=== PATIENT | female | born 1950 | race Caucasian/White ===

== ENCOUNTER 2022-08-02 12:36 | Emergency (ER) | payer MEDICARE, OTHER, SELFPAY ==
--- NOTE | ~2022-08-02 | US_ITS ---
EXAMINATION: US VENOUS ULTRASOUND WITH DOPPLER LOWER EXTREMITY, BILATERAL CLINICAL INFORMATION: Bilateral lower extremity edema and pain COMPARISON: None TECHNIQUE: Ultrasound of the deep veins is performed from the hip to the calf with compression sonography and color and pulse Doppler assessment. Spectral analysis with color-flow imaging is performed. FINDINGS: RIGHT: There is normal venous compression and respiratory variation and augmented flow. The visualized common femoral vein, superficial femoral vein, profunda femoral vein, popliteal vein, and the trifurcation region shows no evidence of deep venous thrombosis. A Alberts's cyst is noted in the popliteal fossa measuring 3.1 x 1.5 x 2.3 cm. LEFT: There is normal venous compression and respiratory variation and augmented flow. The visualized common femoral vein, superficial femoral vein, profunda femoral vein, popliteal vein, and the trifurcation region shows no evidence of deep venous thrombosis. A complex Alberts's cyst is present measuring 4.7 x 3.0 x 2.7 cm If the patient's symptoms persist, followup ultrasound in 5 days 7 days might be of value to exclude proximal propagation from a non-visualized calf vein. US/US venous duplex LE BI IMPRESSION: No DVT demonstrated in either lower extremity. Bilateral Alberts's cysts are present.
--- NOTE | 2022-08-02 13:13 | ED_ITS ---
HPI - General Adult General Chief complaint: Extremity Problem <DENISE Hare - Last Filed: 08/02/22 13:21> Stated complaint: swollen L leg, trouble walking <DENISE Hare - Last Filed: 08/02/22 13:21> Time Seen by Provider: 08/02/22 16:52 <DENISE Hare - Last Filed: 08/02/22 13:21> Source: patient <Sharon Castro MD - Last Filed: 08/02/22 17:16> Mode of arrival: ambulatory <Shaorn Castro MD - Last Filed: 08/02/22 17:16> History of Present Illness HPI narrative: 72-year-old female with history of atrial fibrillation currently on anticoagulation presents for concerns regarding lower extremity edema and a recent right foot surgery on 07/19/2022 without symptoms of shortness of breath, palpitations, lightheadedness. She denies any fever, chills, redness to her lower extremity <Sharon Castro MD - Last Filed: 08/02/22 17:16> Related Data Allergies/adverse reactions: Allergies Allergy/AdvReac Type Severity Reaction Status Date / Time doxycycline Allergy Rash Verified 08/02/22 13:20 <DENISE Hare - Last Filed: 08/02/22 13:21> Review of Systems Review of Systems: Pertinent positives and negatives as stated in HPI <Sharon Castro MD - Last Filed: 08/02/22 17:16> PMFSH Past Medical History Source: nursing notes reviewed <Sharon Castro MD - Last Filed: 08/02/22 17:16> Physical Exam ED Vital Signs: Vital Signs - 24 hr 08/02/22 13:15 08/02/22 16:58 Temperature 97.4 F 97.6 F Pulse Rate 71 78 Respiratory Rate 16 14 Blood Pressure 151/70 H 151/76 H Pulse Oximetry 98 98 Oxygen Delivery Method Room Air Room Air BMI result Body Mass Index 30.5 <DENISE Hare - Last Filed: 08/02/22 13:21> Vital Signs - 24 hr 08/02/22 13:15 08/02/22 16:58 Temperature 97.4 F 97.6 F Pulse Rate 71 78 Respiratory Rate 16 14 Blood Pressure 151/70 H 151/76 H Pulse Oximetry 98 98 Oxygen Delivery Method Room Air Room Air BMI result Body Mass Index 30.5 VITAL SIGNS: Reviewed. GENERAL: Well developed, well nourished, in no acute distress. HEAD: Normocephalic/atraumatic EYES: PERRLA, EOMI LUNGS: Good inspiratory effort without wheeze/rhonchi/rales/tachypnea. SpO2<98> CARDIOVASCULAR: IRR rate and rhythm without noted murmurs, no JVD but bilateral nonpitting lower extremity edema ABDOMEN: Soft, non-tender, non-distended with bowel sounds. MUSCULOSKELETAL: No tenderness, deformities, or effusions noted on gross inspection. EXTREMITIES: No cyanosis, clubbing or edema, there is no erythema/induration to either lower extremity and no pitting edema.. SKIN: Inspection of the skin reveals no rashes NEUROLOGIC: Alert and oriented x 4. Strength and sensation to light touch were grossly intact x 4. <Sharon Castro MD - Last Filed: 08/02/22 17:16> Course Course Course Narrative: RME: 72 y/o F, PMHx of CHF, A. Fib on Eliquis, here for evaluation of BL LE swelling and pain x 3 days. LLE > RLE. Recent right foot surgery on 07/19/22, Missed 4 Eliquis doses pre-op. No CP/SOB Right calf tenderness with palpation and is significantly more swollen than the left. VSS in triage. US of BL LE ordered. Patient is stable to return to the waiting room until a room becomes available. <DENISE Hare - Last Filed: 08/02/22 13:21> Medical Decision Making Medical Decision Making MDM Narrative: This is a 72-year-old female who is currently on anticoagulation and there is no evidence on clinical exam to suggest cellulitis, thrombophlebitis, or DVT. I did review the venous duplex and my interpretation is in agreement with radiology's impression of the imaging study. There is no evidence of DVT or ruptured Alberts cyst although there are bilateral Alberts cysts noted. I did discuss with the patient that this is likely secondary to decreased movement due to surgery as well as discordance between the height of her shoe from the left to the right causing compensation and pain from that. She is otherwise stable for discharge to home. <Sharon Castro MD - Last Filed: 08/02/22 17:16> Differential Diagnosis Differential Diagnoses: The differential diagnosis associated with the presentation includes <Sharon Castro MD - Last Filed: 08/02/22 17:16> Please see the discussion above <Sharon Castro MD - Last Filed: 08/02/22 17:16> Radiology Impression Radiologist Impression: My interpretation is in agreement with radiology's impression of the imaging study. <Sharon Castro MD - Last Filed: 08/02/22 17:16> Chronic Conditions Patient?s care impacted by: Diabetes and Hypertension <Sharon Castro MD - Last Filed: 08/02/22 17:16> Discharge Plan Discharge Clinical Impression: Bilateral leg edema <DENISE Hare - Last Filed: 08/02/22 13:21> Patient Disposition: Home, Self-Care <DENISE Hare - Last Filed: 08/02/22 13:21> Instructions: Leg Edema (ED) <DENISE Hare - Last Filed: 08/02/22 13:21> Additional Instructions: 1. Resume all home medications as prescribed. 2. I recommend applying a compression stocking to the left lower extremity. 3. Follow-up with your primary care provider in the next 1-2 days for re- evaluation further outpatient management. Please do not hesitate to return to the ER for any worsening of symptoms. <DENISE Hare - Last Filed: 08/02/22 13:21> Referrals: Danyell Glass MD [Primary Care Provider] - <DENISE Hare - Last Filed: 08/02/22 13:21>
[2022-08-02 13:15] VITALS: BP 151/70; PULSE 71; RESP 16; TEMP 36.3; O2SAT 98; BMI 30.5
--- NOTE | 2022-08-02 16:06 | PC.NURSE ---
Attempted to call patient into ED. No answer in waiting room
[2022-08-02 16:58] VITALS: BP 151/76; PULSE 78; RESP 14; TEMP 36.4; O2SAT 98
== END 2022-08-02 17:44 | disposition home or self-care (01) ==
LOC: HO.ED 17:31
PROVIDERS: Emergency Provider Student in an Organized Health Care Education/Training Program; PCP Internal Medicine
DX: R60.0 Localized edema (principal); Z79.899 Other long term (current) drug therapy
CPT/HCPCS: 93970; 99283; 99284

== ENCOUNTER 2023-01-29 13:33 | Outpatient (REF) | payer MEDICARE, OTHER, SELFPAY ==
[2023-01-29 14:51] LABS: Estimated Average Glucose 120 mg/dL; Hemoglobin A1c % 5.8 % (<6.0)
[2023-01-29 15:15] LABS: Alanine Aminotransferase 8 U/L (0-31); Albumin Level 3.9 g/dL (3.5-5.0); Alkaline Phosphatase 105 U/L (39-117); Anion Gap 13 (12-20); Aspartate Amino Transferase 9 U/L (5-31); Bilirubin Total 0.4 mg/dL (0.0-1.0); Blood Urea Nitrogen 25 mg/dL (9-16); Calcium 9.9 mg/dL (8.4-10.2); Carbon Dioxide 29 mmol/L (22-29); Chloride 102 mmol/L (96-108); Estimated Glomerular Filt Rate 39; Glucose Random 131 mg/dL (60-115); Potassium 3.7 mmol/L (3.3-5.1); Sodium 140 mmol/L (135-145); Total Protein 7.5 g/dL (6.5-8.0)
== END 2023-01-29 13:34 | disposition home or self-care (01) ==
LOC: HO.LAB 13:33
PROVIDERS: PCP Internal Medicine; Visit Provider Physician Assistant
DX: E11.36 Type 2 diabetes mellitus with diabetic cataract (principal); Z79.4 Long term (current) use of insulin
CPT/HCPCS: 36415; 80053; 83036

== ENCOUNTER 2023-02-20 15:40 | Emergency (ER) | payer MEDICARE, OTHER, SELFPAY ==
--- NOTE | ~2023-02-20 | US_ITS ---
EXAMINATION: US PELVIS CLINICAL INFORMATION: Vaginal bleeding nonalcoholic was. Postmenopausal COMPARISON: 12/05/2019 CT scan TECHNIQUE: Ultrasound of the pelvis is performed using both transabdominal and transvaginal transducers along with Doppler. Transvaginal imaging is performed due to inadequate visualization transabdominally. FINDINGS: Uterus: The uterus is retroverted and measures 6.1 x 4.0 x 4.4 cm. The double wall endometrial thickness is 19 mm. The uterus is smooth in contour and has normal myometrial echogenicity. No visible fibroid. Adnexa: Ovaries are not able be visualized either transabdominally or endovaginally. US/US pelvic and transvaginal IMPRESSION: Heterogeneously thickened endometrial cavity measuring 1.9 cm maximally. This is out of proportion for patient's age. Clinical correlation and correlation with endometrial biopsy would be suggested.
--- NOTE | 2023-02-20 16:12 | ED_ITS ---
HPI - General Adult General Chief complaint: Vaginal Bleeding Stated complaint: bleeding? wants to check out Time Seen by Provider: 02/20/23 21:16 Source: patient Mode of arrival: ambulatory Limitations: no limitations History of Present Illness HPI narrative: 73 yo female hx of afib on eliquis, CKD, CHF, HTN - no fam hx of cancers but hx of breast cancer in family though patient never diagnosed who had menopause per her 30 years ago no prior post menopausal bleeding noted she had bleeding on her underwear today no clots x 1, has not gone through a pad today, wiped one more time and saw blood. She has no abdominal pain, no sig bleeding. She states no abnormal pap in past. This has never happened before. She feels okay now she is hungry and slightly dizzy from not eating. MD complaint: vaginal bleeding Onset (ago): hour(s) (3pm today ) Location: pelvis Radiation: non-radiation Severity: mild Relieving factors: none Exacerbating factors: none Associated symptoms: denies other symptoms Treatments prior to arrival: none Related Data Allergies Allergy/AdvReac Type Severity Reaction Status Date / Time doxycycline Allergy Rash Verified 08/02/22 13:20 Review of Systems 2 Review of Systems: Constitutional : No Fever, No Chills ENT/Mouth : No sore throat, No Rhinorrhea Eyes: No Eye Pain, No Redness Cardiovascular : No Chest Pain, No SOB Respiratory : No Cough, No Sputum, No Wheezing Gastrointestinal : no Nausea, No Vomiting, No Diarrhea, no abdominal pain, Genitourinary : positive irregular bleeding, No Dysuria, No Urinary Frequency, no pelvic pain Musculoskeletal : No Myalgias Skin : No rash Neuro : No Weakness, No Headache Psych : No Anxiety/Panic, No Depression Heme/Lymph: No bruising, No Lymphadenopathy Endocrine : No Polyuria, No Polydipsia All other systems reviewed and are negative [facility] Past Medical History Attestation statement: The following information was validated with the patient. Medical History CHF (congestive heart failure) CKD (chronic kidney disease) Afib Social History Social History Alcohol intake: never Smoked in Last 30 Days: No Use of substances other than those prescribed or required for medical reasons: No Advance Directives: No Advance Directives Information Provided: No Physical Exam ED Vital Signs: Vital Signs - 24 hr 02/20/23 16:14 02/20/23 20:35 02/20/23 20:35 Temperature 97.8 F Pulse Rate 63 62 67 Respiratory Rate 18 Blood Pressure 149/65 H 139/76 153/85 H Pulse Oximetry 96 Oxygen Delivery Method Room Air 02/20/23 20:36 02/20/23 20:38 02/20/23 21:42 Temperature 97.8 F 97.4 F Pulse Rate 83 63 61 Respiratory Rate 16 16 Blood Pressure 145/85 H 158/77 H 144/72 H Pulse Oximetry 98 96 Oxygen Delivery Method Room Air Room Air BMI result Body Mass Index 27.6 Appearance: Alert. Oriented X3. No acute distress. Eyes: Pupils equal, round and reactive to light. ENT: Pharynx normal. Neck: Normal inspection. Neck supple. CVS: Normal heart rate and rhythm. Pulses normal. Respiratory: No respiratory distress. Breath sounds normal. Abdomen: Soft and nontender. : dark blood 1 scopette noted from closed os no other bleeding or lesion seen Skin: Skin warm and dry. Normal skin color. Normal skin turgor. Extremities: No lower extremity edema. No calf ttp Neuro: Oriented X 3. No motor deficit. No sensory deficit. Course Course Course Narrative: RME: 73yo F w/PMHx HTN, DM, CHF, Stage 3 CKD, A.fib on Eliquis c/o bright red vaginal bleeding x few hours w/assoc lightheadedness/weakness. Denies N/V, abdominal pain. Currently on Abx for foot ulcer EKG, Labs, UA, Orthostatics ordered Full HPI, ROS and PE to be performed by primary ED provider. 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 At this time H/H stable VS stable will obtain US to evaluate uterus and monitor - likely hold eliquis for 2 days and refer to PCP and OBGYN pending US. She has no abdominal pain. Will trend H/H as well. Differential Diagnosis Differential Diagnoses: The differential diagnosis associated with the presentation includes DUB, ovarian mass, pelvic mass, uterine mass Admission/Observation Consideration of admission/observation: Escalation of care including admission/observation considered VS stable, H/H stable at 6 hr claudine Lab Data MDM Lab Attestation statement: I reviewed the patient's lab results. 02/20/23 21:50 02/20/23 16:36 Labs: Lab Results 02/20/23 02/20/23 02/20/23 Range/Units 16:36 20:44 21:50 WBC 6.1 6.4 (4.8-10.8) X10*3/uL RBC 4.51 4.46 (4.20-5.50) X10*6/uL Hgb 13.7 13.6 (12.0-16.0) g/dl Hct 41.9 41.2 (37.0-47.0) % MCV 92.9 92.4 (80.0-98.0) fL MCH 30.4 30.5 (27.0-33.0) pg MCHC 32.7 33.0 (31.0-35.0) g/dl RDW 15.9 15.7 (11.0-16.0) % Plt Count 274 266 (160-400) X10*3/uL MPV 9.4 9.4 (9.4-12.3) fL Immature Gran % (Auto) 0.3 (0.0-0.4) % Neut % (Auto) 73.0 (45-73) % Lymph % (Auto) 17.6 L (20-40) % [place] % (Auto) 6.0 (2-11) % Eos % (Auto) 2.1 (0-4) % Baso % (Auto) 1.0 (0-2) % Lymph # (Auto) 1.1 L (1.2-4.9) X10*3/uL [place] # (Auto) 0.4 (0.1-1.2) X10*3/uL Eos # (Auto) 0.1 (0.0-0.4) X10*3/uL Baso # (Auto) 0.1 (0.0-0.2) X10*3/uL Abs Immat Gran (auto) 0.02 (0.00-0.03) X10*3/uL Absolute Neuts (auto) 4.5 (2.0-8.3) x10*3/uL Absolute Nucleated RBC 0.000 0.000 (0.0-0.012) X10*3/uL Nucleated RBC % (auto) 0.0 0.0 (0.0-0.2) /100WBC PT 12.9 (11.1-13.3) SEC INR 1.1 (0.9-1.1) Sodium 140 (135-145) mmol/L Potassium 4.2 (3.3-5.1) mmol/L Chloride 104 (96-108) mmol/L Carbon Dioxide 25 (22-29) mmol/L Anion Gap 15 (12-20) BUN 25 H (9-16) mg/dL Creatinine 1.38 (0.5-1.4) mg/dL Estim Creat Clear Calc 36.3 Estimated GFR 37 POC Glucose 131 H (60-115) mg/dL Random Glucose 124 H (60-115) mg/dL Calcium 9.9 (8.4-10.2) mg/dL Magnesium 2.2 (1.6-2.6) mg/dL Total Bilirubin 0.4 (0.0-1.0) mg/dL Direct Bilirubin 0.1 (0.0-0.5) mg/dL AST 13 (5-31) U/L ALT 13 (0-31) U/L Alkaline Phosphatase 128 H (39-117) U/L Total Protein 7.9 (6.5-8.0) g/dL Albumin 4.2 (3.5-5.0) g/dL Lipase 46 (8-78) U/L Urine Color Yellow Urine Appearance Clear Urine pH 5.0 (5.0-9.0) Ur Specific [place] 1.010 (1.005-1.025) Urine Protein 30 (1+) H (Neg-Trace) mg/dL Urine Glucose (UA) >=1000 H (Negative) mg/dL Urine Ketones Negative (Negative) mg/dL Urine Blood Large (3+) H (Negative) Urine Nitrite Negative (Negative) Ur Leukocyte Esterase Moderate (2+) H (Negative) Urine RBC 3-5 H (0-2) /HPF Urine WBC 11-20 H (0-5) /HPF Ur Squamous Epith Cells 3-5 (0-2) /HPF Urine Bacteria Trace (None Seen) Hyaline Casts 0-2 (0-2) /LPF Independent Interpretation I performed an independent interpretation of an: EKG and Ultrasound Interpretation: Rate: 65 Rhythm: NSR [place]: left, LVH Normal P waves. Normal GEETA. RBBB ST T wave : inverted anterior leads qTC: normal prior studies: same as old 2019 The study has been interpreted contemporaneously by me. . Radiology Impression Discussion of test interpretation with radiology: I have reviewed the radiologist's reading. Discharge Plan Discharge Clinical Impression: Vaginal bleeding Patient Disposition: Home, Self-Care Instructions: Dysfunctional Uterine Bleeding (ED) Additional Instructions: return for bleeding dizziness pain and weakness HOLD eliquis for 2 days you need to call our OBGYN office in the AM you will need endometrial biopsy given bleeding and concerns of thickness of endometrial stripe this could be an issue such as cancer or early signs of cancer Referrals: Marino Becerra MD [Physician] - (call for appointment please call tomorrow)
[2023-02-20 16:14] VITALS: BP 149/65; PULSE 63; RESP 18; TEMP 36.6; O2SAT 96; BMI 27.6
--- NOTE | 2023-02-20 16:17 | ECG_ITS ---
Test Reason : V/BLEED Blood Pressure : / mmHG Vent. Rate : 065 BPM Atrial Rate : 065 BPM P-R Int : 142 ms QRS Dur : 144 ms QT Int : 444 ms P-R-T Axes : 054 -16 036 degrees QTc Int : 461 ms Normal sinus rhythm Right bundle branch block Minimal voltage criteria for LVH, may be normal variant ( R in aVL ) Abnormal ECG When compared with ECG of 05-DEC-2019 15:05, No significant change was found Referred By: Cayla Christiansen Electronically Signed By:CLINT SEARS
[2023-02-20 16:40] LABS: MANUAL DIFF FLAG NO
[2023-02-20 16:44] LABS: Appearance Urine Clear; Color Urine Yellow; Glucose Urine UA >=1000 mg/dL (Negative); Leukocyte Esterase Urine Moderate (2+) (Negative); Nitrite Urine Negative (Negative); UMIC TRIGGER UACC YES; Urine Blood Large (3+) (Negative); Urine Ketones Negative (Negative); Urine Protein 30 (1+) mg/dL (Neg-Trace)
[2023-02-20 16:45] LABS: Basophils Absolute Auto 0.1 X10*3/uL (0.0-0.2); Eosinophils Absolute Auto 0.1 X10*3/uL (0.0-0.4); Eosinophils Percent Auto 2.1 % (0-4); Hematocrit 41.9 % (37.0-47.0); Hemoglobin 13.7 g/dl (12.0-16.0); Imm Gran Abs Auto 0.02 X10*3/uL (0.00-0.03); Imm Gran Pct Auto 0.3 % (0.0-0.4); Lymphocytes Absolute Auto 1.1 X10*3/uL (1.2-4.9); Lymphocytes Percent Auto 17.6 % (20-40); Mean Corpuscular HGB Conc 32.7 g/dl (31.0-35.0); Mean Corpuscular Hemoglobin 30.4 pg (27.0-33.0); Mean Corpuscular Volume 92.9 fL (80.0-98.0); Mean Platelet Volume 9.4 fL (9.4-12.3); Monocytes Absolute Auto 0.4 X10*3/uL (0.1-1.2); Neutrophils Absolute Auto 4.5 x10*3/uL (2.0-8.3); Platelet Count 274 X10*3/uL (160-400); Red Blood Count 4.51 X10*6/uL (4.20-5.50); Red Cell Distribution Width 15.9 % (11.0-16.0); White Blood Count 6.1 X10*3/uL (4.8-10.8)
[2023-02-20 16:55] LABS: INTERNATIONAL NORM RATIO 1.1 (0.9-1.1); Prothrombin Time 12.9 SEC (11.1-13.3)
[2023-02-20 16:58] LABS: Alanine Aminotransferase 13 U/L (0-31); Albumin Level 4.2 g/dL (3.5-5.0); Alkaline Phosphatase 128 U/L (39-117); Anion Gap 15 (12-20); Aspartate Amino Transferase 13 U/L (5-31); Bilirubin Direct 0.1 mg/dL (0.0-0.5); Bilirubin Total 0.4 mg/dL (0.0-1.0); Blood Urea Nitrogen 25 mg/dL (9-16); Calcium 9.9 mg/dL (8.4-10.2); Carbon Dioxide 25 mmol/L (22-29); Chloride 104 mmol/L (96-108); Creatinine Clr Calc Pharmacy 36.3; Estimated Glomerular Filt Rate 37; Glucose Random 124 mg/dL (60-115); Lipase 46 U/L (8-78); Magnesium 2.2 mg/dL (1.6-2.6); Potassium 4.2 mmol/L (3.3-5.1); Sodium 140 mmol/L (135-145); Total Protein 7.9 g/dL (6.5-8.0)
[2023-02-20 17:01] LABS: Bacteria Urine Trace (None Seen); Hyaline Casts Urine 0-2 /LPF (0-2); UACC Culture Trigger YES
[2023-02-20 20:35] VITALS: BP 139/76; BP 153/85; PULSE 62; PULSE 67
[2023-02-20 20:36] VITALS: BP 145/85; PULSE 83
[2023-02-20 20:38] VITALS: BP 158/77; PULSE 63; RESP 16; TEMP 36.6; O2SAT 98
--- NOTE | 2023-02-20 20:45 | MHC.EDTECH ---
THIS PCT JUST ASSUMED CARE OF PT ,ORTHOSTATICS VITALS SIGN TAKEN ,AND BLOOD SUGAR CHECK ,PT IS COMFORTABLE AND RESTING IN BED ,WARM BLANKET GIVEN .
[2023-02-20 20:50] LABS: Glucose, Whole Blood 131 mg/dL (60-115)
[2023-02-20 21:42] VITALS: BP 144/72; PULSE 61; RESP 16; TEMP 36.3; O2SAT 96
--- NOTE | 2023-02-20 21:50 | MHC.EDTECH ---
PATIENT 2200 VITALS SIGN TAKEN AND CBC DRAWN AND SENT TO LAB .
[2023-02-20 21:56] LABS: Hematocrit 41.2 % (37.0-47.0); Hemoglobin 13.6 g/dl (12.0-16.0); Mean Corpuscular Hemoglobin 30.5 pg (27.0-33.0); Mean Corpuscular Volume 92.4 fL (80.0-98.0); Mean Platelet Volume 9.4 fL (9.4-12.3); Platelet Count 266 X10*3/uL (160-400); Red Blood Count 4.46 X10*6/uL (4.20-5.50); Red Cell Distribution Width 15.7 % (11.0-16.0); White Blood Count 6.4 X10*3/uL (4.8-10.8)
== END 2023-02-20 23:15 | disposition home or self-care (01) ==
PROVIDERS: Physician Assistant; Emergency Provider Emergency Medicine; PCP Internal Medicine
DX: N93.9 Abnormal uterine and vaginal bleeding, unspecified (principal); R53.1 Weakness; I13.0 Hypertensive heart and chronic kidney disease with heart failure and stage 1 through stage 4 chronic kidney disease, or unspecified chronic kidney disease; N18.9 Chronic kidney disease, unspecified; I50.9 Heart failure, unspecified; I48.91 Unspecified atrial fibrillation; Z79.01 Long term (current) use of anticoagulants
CPT/HCPCS: 36415; 76830; 76856; 80048; 80076; 81001; 82947; 83690; 83735; 85025; 85027; 85610; 87086; 93005; 99284; 99285

== ENCOUNTER 2023-02-23 12:17 | Outpatient (REF) | payer MEDICARE, OTHER, SELFPAY ==
[2023-02-23 12:57] LABS: MANUAL DIFF FLAG NO
[2023-02-23 13:06] LABS: Basophils Absolute Auto 0.1 X10*3/uL (0.0-0.2); Basophils Percent Auto 0.9 % (0-2); Eosinophils Absolute Auto 0.2 X10*3/uL (0.0-0.4); Eosinophils Percent Auto 2.6 % (0-4); Hematocrit 42.3 % (37.0-47.0); Hemoglobin 13.8 g/dl (12.0-16.0); Imm Gran Abs Auto 0.02 X10*3/uL (0.00-0.03); Imm Gran Pct Auto 0.3 % (0.0-0.4); Lymphocytes Percent Auto 15.1 % (20-40); Mean Corpuscular HGB Conc 32.6 g/dl (31.0-35.0); Mean Corpuscular Hemoglobin 30.9 pg (27.0-33.0); Mean Corpuscular Volume 94.8 fL (80.0-98.0); Mean Platelet Volume 9.4 fL (9.4-12.3); Monocytes Absolute Auto 0.5 X10*3/uL (0.1-1.2); Monocytes Percent Auto 7.3 % (2-11); Neutrophils Absolute Auto 5.1 x10*3/uL (2.0-8.3); Neutrophils Percent Auto 73.8 % (45-73); Platelet Count 251 X10*3/uL (160-400); Red Blood Count 4.46 X10*6/uL (4.20-5.50); White Blood Count 6.9 X10*3/uL (4.8-10.8)
[2023-02-23 15:33] LABS: Anion Gap 15 (12-20); Blood Urea Nitrogen 28 mg/dL (9-16); Calcium 9.8 mg/dL (8.4-10.2); Carbon Dioxide 27 mmol/L (22-29); Chloride 103 mmol/L (96-108); Estimated Glomerular Filt Rate 41; Magnesium 2.3 mg/dL (1.6-2.6); Phosphorus 3.4 mg/dL (2.7-4.5); Sodium 141 mmol/L (135-145)
[2023-02-23 16:10] LABS: Creatinine Urine 21.18 mg/dL; Microalbum/Creatinine Ratio Ur 590.1 ug/mg cr (<30); Total Protein Urine Random 19 mg/dL (<12)
[2023-02-26 13:59] LABS: Calcium (PTHI) 9.7 mg/dL (8.6-10.4); PTHI 61 pg/mL (16-77)
== END 2023-02-23 12:18 | disposition home or self-care (01) ==
LOC: HO.LAB 12:17
PROVIDERS: PCP Internal Medicine; Visit Provider Internal Medicine Nephrology
DX: E11.22 Type 2 diabetes mellitus with diabetic chronic kidney disease (principal); N18.32 Chronic kidney disease, stage 3b; I77.6 Arteritis, unspecified; R82.90 Unspecified abnormal findings in urine
CPT/HCPCS: 36415; 80051; 82043; 82306; 82310; 82565; 82570; 83735; 83970; 84100; 84156; 84520; 85025; 87086

== ENCOUNTER 2023-09-25 11:20 | Inpatient (IN) | payer MEDICARE, OTHER, SELFPAY ==
--- NOTE | ~2023-09-25 | FL_ITS ---
EXAMINATION: XR FLUOROSCOPY WITH IMAGES CLINICAL INFORMATION: ERCP COMPARISON: CT abdomen pelvis on 09/25/2023 TECHNIQUE: Fluoroscopy Supervised By: Dr. Joe Cruz. Fluoroscopy Time: 5.1 minutes. Cumulative Dose: 58.6 mGy. DAP: 15.9 Gycm2. Images: 8. FINDINGS: Fluoroscopy performed during ERCP, CBD injection, and balloon sweep of the CBD. A common bile duct stent was placed. There is moderate intrahepatic biliary ductal dilatation. FL/FL guidance in OR IMPRESSION: Fluoroscopy performed during endoscopy. Please see operative report for additional information.
--- NOTE | ~2023-09-25 | US_ITS ---
EXAMINATION: US ABDOMEN LIMITED CLINICAL INFORMATION: Jaundice. COMPARISON: CT abdomen and pelvis dated 12/05/2019. TECHNIQUE: Real-time imaging of the right upper quadrant abdominal viscera. FINDINGS: PANCREAS: Within the pancreatic head, a 4.3 x 2.3 x 2.6 cm hypoechoic, circumscribed mass is seen. There is pancreatic ductal dilatation to 7 mm. LIVER: The liver is normal in size. The liver contour is normal. There are benign, calcified granulomas. Parenchymal echogenicity is normal. No focal hepatic lesion. There is intrahepatic biliary duct dilatation. GALLBLADDER: Surgically absent. COMMON BILE DUCT: Markedly increased in caliber, measuring 2.7 cm in diameter. RIGHT KIDNEY: There are benign, simple cysts, the largest at the lower pole measuring 2.9 cm in maximal diameter. These require no imaging follow-up. There is mild hydronephrosis. No renal calculi or focal parenchymal solid lesions. The kidney measures 10.0 cm in maximum dimension. FREE FLUID: None. US/US abdomen limited IMPRESSION: 1. A 4.3 cm pancreatic head mass is seen. There is secondary dilatation of the pancreatic duct, the common bile duct and the intrahepatic ductal system. Recommend further evaluation with CT or MRI (pancreatic mass protocol). 2. The gallbladder is surgically absent. 3. There is mild right hydronephrosis.
--- NOTE | ~2023-09-25 | CT_ITS ---
EXAMINATION: CT ABDOMEN AND PELVIS WITH CONTRAST CLINICAL INFORMATION: Obstructive jaundice COMPARISON: Portions of a previous CT 12/05/19. TECHNIQUE: Multidetector volumetric images were obtained from the superior aspect of the liver through the pubic symphysis following administration 85 mL of Omnipaque 350 intravenous contrast. Sagittal and coronal reformatted images were obtained on the technologist's workstation. Oral contrast: No This CT examination was performed using dose optimization techniques as appropriate, variously including the following: *Automated exposure control *Adjustment of mA and/or kV according to patient size (this includes techniques or standardized protocols for targeted exams where dose is matched to indication/reason for exam; i.e. extremities or head) *Use of iterative reconstruction technique DLP: 447 mGy-cm FINDINGS: LUNG BASES: No suspicious abnormality in the visualized lower chest LIVER, GALLBLADDER, AND BILIARY TREE: There is marked intra and extrahepatic biliary dilation. There is a circumscribed 0.8 cm round mass in the medial upper aspect of hepatic segment 7 (series 2, image 9). I cannot confirm stability when compared to the previous study which was performed without contrast. The liver contour appears smooth. Massive distention of the common bile duct with abrupt narrowing at the level of the pancreatic head. There is some hyperenhancement of the most distal common duct. PANCREAS: There is moderate to marked diffuse dilation of the pancreatic duct. The pancreatic duct is dilated tail body and neck. There is a fairly abrupt changing caliber of the pancreatic duct in the pancreatic head. This corresponds to the level of abrupt narrowing of the common bile duct. There is fullness in this area which measures approximately 2.8 cm. No peripancreatic collection. SPLEEN: Within normal limits ADRENAL GLANDS: No adrenal mass demonstrated. KIDNEYS AND URETERS: There are multiple varying sized round low attenuating renal masses consistent with cysts. No suspicious renal mass. There is visualization of the collecting system on each side. No definite ureteral calculus. BLADDER: The bladder is distended. The bladder outlet is prominent. There may be an element of bladder floor relaxation. GASTROINTESTINAL TRACT: No localized colonic wall thickening. The appendix is normal. There may be a tiny hiatal hernia. The stomach is not well distended. The duodenum is somewhat displaced and possibly narrowed. ABDOMINAL WALL: Fat protrudes into the umbilicus. Small bowel loops are closely related to the abdominal wall fascia. LYMPH NODES: No measurable lymphadenopathy. No convincing omental or mesenteric mass. No significant intraperitoneal fluid. VASCULAR: There is no abdominal aortic aneurysm. The portal vein enhances. The tissue planes around the celiac axis and SMA are maintained. The pancreas abuts the right side of the splenoportal confluence. No convincing change in caliber or convincing evidence of invasion. PELVIC VISCERA: No suspicious abnormality the uterus or adnexa. OSSEOUS STRUCTURES: No suspicious focal lesion. There is extensive degenerative change in the visualized spine CT/CT abdomen pelvis w IV con IMPRESSION: Markedly abnormal exam. There is a mass in the region of the pancreatic head which causes the double duct sign with obstruction of the pancreatic and bile duct. Possibilities should include adenocarcinoma of the pancreas. Cholangiocarcinoma of the distal common bile duct is possible. Primary small bowel malignancy felt much less likely. Tissue diagnosis recommended. Fleischner guidelines were followed.
[2023-09-25 11:29] VITALS: BP 163/83; PULSE 75; RESP 18; TEMP 36.8; O2SAT 98; BMI 26.0
--- NOTE | 2023-09-25 11:29 | ED.GENADULT ---
HPI - General Adult General Chief complaint: Recheck/Abnormal Lab/Rx Stated complaint: dark urine Time Seen by Provider: 09/25/23 14:56 Source: patient Mode of arrival: ambulatory Limitations: no limitations History of Present Illness HPI narrative: patient noticed that over the weekend she was becoming yellow, denies abdominal pain or swelling. No prior history of pancreatitis or hepatitis. Onset (ago): day(s) Related Data Allergies Allergy/AdvReac Type Severity Reaction Status Date / Time doxycycline Allergy Rash Verified 09/25/23 11:32 Review of Systems Review of Systems: Yes all other systems are reviewed and are negative Neurologic: Denies Sensory deficit (Neuro) [facility] Past Medical History Medical History CHF (congestive heart failure) CKD (chronic kidney disease) Afib Social History Social History Alcohol intake: never Advance Directives: No Advance Directives Information Provided: No Physical Exam ED Vital Signs: Vital Signs - 24 hr 09/25/23 11:29 Temperature 98.3 F Pulse Rate 75 Respiratory Rate 18 Blood Pressure 163/83 H Pulse Oximetry 98 Oxygen Delivery Method Room Air BMI result Body Mass Index 26.0 Const Other: ill appearing, jaundiced Nutritional Appearance: average body habitus Orientation/consciousness: oriented to person and patient oriented x3 Limitations: no limitations HENMT Head: Yes normal to inspection Ears: external ears normal General nose exam: Normal external nose present Mouth: Normal oral and palatal mucosa present and oropharynx normal Throat: Yes posterior oropharynx normal Eyes Other: icteric Neck Neck: Yes normal visual inspection Chest Chest palpation & inspection: normal inspection of the chest Resp Auscultation: clear to auscultation bilaterally Cardio Jugular venous distension: no JVD Rate: regular rate Rhythm: regular rhythm Heart sounds: S1 normal heart sound present and S2 normal heart sound present GI Inspection: Yes normal to inspection Palpation (GI): Soft to palpation, nontender and No hepatosplenomegaly present Auscultation: normal bowel sounds General: Yes no CVA tenderness Back/Spine/Pelvis Back: no CVA tenderness Skin Other: jaundiced General skin exam: no rashes or lesions noted Neuro General: oriented to person and patient oriented x3 Cranial nerves: Yes CN's II-XII intact bilaterally Motor exam (neuro): 10/13 motor strength present throughout Sensory Exam: No Sensory deficit (Neuro) Extrem General: Yes normal to inspection Psych Appearance: grossly normal Course Course Course Narrative: 73-year-old female presents for evaluation of yellow skin and dark urine. She denies any known history of liver issues. She does have chronic kidney disease. She was recently prescribed Levaquin for a right foot infection. Plan for labs, UA, INR, Tylenol level. The patient denies Tylenol use or abuse. Will defer any potential imaging to primary provider Reevaluation(s) Reevaluation #1: Discussed with Dr. Cruz we can admit the patient to [place] Time: 15:28 Medical Decision Making Differential Diagnosis Differential Diagnoses: The differential diagnosis associated with the presentation includes (hepatitis, pancreatitis, pancreatic mass, liver mass, ascending cholangitis) Admission/Observation Consideration of admission/observation: Escalation of care including admission/observation considered (upon arrival patient considered for admission) Consult Healthcare Provider Management of the patient was discussed with: Hospitalist and Manufacturing Finance Manager (Dr. Nanyc BANDA) Lab Data 09/25/23 11:45 09/25/23 11:45 Labs: Lab Results 09/25/23 Range/Units 11:45 WBC 8.5 (4.8-10.8) X10*3/uL RBC 4.42 (4.20-5.50) X10*6/uL Hgb 13.0 (12.0-16.0) g/dl Hct 39.0 (37.0-47.0) % MCV 88.2 (80.0-98.0) fL MCH 29.4 (27.0-33.0) pg MCHC 33.3 (31.0-35.0) g/dl RDW 15.7 (11.0-16.0) % Plt Count 325 D (160-400) X10*3/uL MPV 10.3 (9.4-12.3) fL Immature Gran % (Auto) 0.7 H (0.0-0.4) % Neut % (Auto) 82.9 H (45-73) % Lymph % (Auto) 7.8 L (20-40) % [place] % (Auto) 5.6 (2-11) % Eos % (Auto) 2.1 (0-4) % Baso % (Auto) 0.9 (0-2) % Lymph # (Auto) 0.7 L (1.2-4.9) X10*3/uL [place] # (Auto) 0.5 (0.1-1.2) X10*3/uL Eos # (Auto) 0.2 (0.0-0.4) X10*3/uL Baso # (Auto) 0.1 (0.0-0.2) X10*3/uL Abs Immat Gran (auto) 0.06 H (0.00-0.03) X10*3/uL Absolute Neuts (auto) 7.1 (2.0-8.3) x10*3/uL Absolute Nucleated RBC 0.000 (0.0-0.012) X10*3/uL Nucleated RBC % (auto) 0.0 (0.0-0.2) /100WBC Sodium 133 L (135-145) mmol/L Potassium 3.4 (3.3-5.1) mmol/L Chloride 98 (96-108) mmol/L Carbon Dioxide 23 (22-29) mmol/L Anion Gap 15 (12-20) BUN 26 H (9-16) mg/dL Creatinine 1.44 H (0.5-1.4) mg/dL Estim Creat Clear Calc 32.6 Estimated GFR 36 Random Glucose 321 H (60-115) mg/dL Calcium 9.5 (8.4-10.2) mg/dL Total Bilirubin 15.0 H (0.0-1.0) mg/dL AST 332 H (5-31) U/L ALT 432 H (0-31) U/L Alkaline Phosphatase 1440 H (39-117) U/L Total Protein 7.6 (6.5-8.0) g/dL Albumin 3.5 (3.5-5.0) g/dL Lipase 1126 H (8-78) U/L Acetaminophen < 3 (<30) mcg/mL Independent Interpretation I performed an independent interpretation of an: Ultrasound (dilated CBD and mass at the head of the pancreas) Radiology Impression Discussion of test interpretation with radiology: I have reviewed the radiologist's reading. (and agree) Tests considered The following testing was considered but not selected: CT scan of abdomen considered but ultrasound was the better choice to exam the biliary ducts Chronic Conditions Patient?s care impacted by: Diabetes and Hypertension Discharge Plan Discharge Clinical Impression: Biliary obstruction, Pancreatic mass Patient Disposition: Admitted As Inpatient Print Language: Lithuanian
[2023-09-25 11:54] LABS: MANUAL DIFF FLAG NO
[2023-09-25 12:10] LABS: Basophils Absolute Auto 0.1 X10*3/uL (0.0-0.2); Basophils Percent Auto 0.9 % (0-2); Eosinophils Absolute Auto 0.2 X10*3/uL (0.0-0.4); Eosinophils Percent Auto 2.1 % (0-4); Imm Gran Abs Auto 0.06 X10*3/uL (0.00-0.03); Imm Gran Pct Auto 0.7 % (0.0-0.4); Lymphocytes Absolute Auto 0.7 X10*3/uL (1.2-4.9); Lymphocytes Percent Auto 7.8 % (20-40); Mean Corpuscular HGB Conc 33.3 g/dl (31.0-35.0); Mean Corpuscular Hemoglobin 29.4 pg (27.0-33.0); Mean Corpuscular Volume 88.2 fL (80.0-98.0); Mean Platelet Volume 10.3 fL (9.4-12.3); Monocytes Absolute Auto 0.5 X10*3/uL (0.1-1.2); Monocytes Percent Auto 5.6 % (2-11); Neutrophils Absolute Auto 7.1 x10*3/uL (2.0-8.3); Neutrophils Percent Auto 82.9 % (45-73); Platelet Count 325 X10*3/uL (160-400); Red Blood Count 4.42 X10*6/uL (4.20-5.50); Red Cell Distribution Width 15.7 % (11.0-16.0); White Blood Count 8.5 X10*3/uL (4.8-10.8)
[2023-09-25 12:48] LABS: Alanine Aminotransferase 432 U/L (0-31); Albumin Level 3.5 g/dL (3.5-5.0); Alkaline Phosphatase 1440 U/L (39-117); Anion Gap 15 (12-20); Aspartate Amino Transferase 332 U/L (5-31); Blood Urea Nitrogen 26 mg/dL (9-16); Calcium 9.5 mg/dL (8.4-10.2); Carbon Dioxide 23 mmol/L (22-29); Chloride 98 mmol/L (96-108); Creatinine Clr Calc Pharmacy 32.6; Estimated Glomerular Filt Rate 36; Glucose Random 321 mg/dL (60-115); Potassium 3.4 mmol/L (3.3-5.1); Sodium 133 mmol/L (135-145); Total Protein 7.6 g/dL (6.5-8.0)
[2023-09-25 13:21] LABS: Lipase 1126 U/L (8-78)
[2023-09-25 13:54] LABS: Acetaminophen LAB < 3 mcg/mL (<30)
[2023-09-25 15:33] VITALS: BP 149/78; PULSE 71; RESP 18; TEMP 36.4; O2SAT 97
--- NOTE | 2023-09-25 15:38 | PC.NURSE ---
Pt presents from home, reports over the weekend she noticed her skin was yellowing and is itchy, along with dark urine. Pt reports no pain, CP, fevers, cough, N/V/D. Pt denies any recent falls or illnesses. Pt is alert and oriented, breathing even and unlabored, skin obviously jaundice and dry. Pt in no outward distress. VSS.
[2023-09-25 15:56] LABS: INTERNATIONAL NORM RATIO 1.2 (0.9-1.1); Prothrombin Time 14.1 SEC (11.1-13.3)
--- NOTE | 2023-09-25 15:56 | P.HPHOSP_ITS ---
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 Patient reports about 1 month of decreased appetite, 5 lb weight loss, weakness. Initially attributed to right diabetic foot wound for which he was treated with 10 days of levofloxacin. However symptoms persisted with worsening yellowing of skin, came to ED by request of her son. In ED found to have elevated bilirubin and transaminases, abdominal ultrasound suspicious for pancreatic mass. Patient denies any fever abdominal pain. Review of Systems 2 Review of Systems: Yes all other systems are reviewed and are negative [facility] Medical History CHF (congestive heart failure) CKD (chronic kidney disease) Afib Social History Alcohol intake: never Smoked in Last 30 Days: No Use of substances other than those prescribed or required for medical reasons: No Advance Directives: No Advance Directives Information Provided: No Meds Allergies Allergy/AdvReac Type Severity Reaction Status Date / Time doxycycline Allergy Rash Verified 09/25/23 11:32 Active Medications: Current Medications Sodium Chloride (0.9 % Sodium Chloride Flush 3 Ml Syringe) 3 ml [facility] Medications ?Medication ?Instructions ?Recorded ?Confirmed ?Last Taken ?Type apixaban 5 mg tablet (Eliquis) 5 mg PO BID 09/25/23 09/25/23 09/25/23 History atorvastatin 10 mg tablet 10 mg PO BEDTIME 09/25/23 09/25/23 09/24/23 History diltiazem HCl 240 mg 240 mg PO DAILY 09/25/23 09/25/23 09/25/23 History capsule,extended release 24 hr empagliflozin 25 mg-metformin ER 1 tab PO DAILY 09/25/23 09/25/23 09/25/23 History 1,000 mg tablet,extended release 24hr (Synjardy XR) furosemide 40 mg tablet 40 mg PO BID@0900,1200 09/25/23 09/25/23 09/25/23 History metoprolol tartrate 25 mg tablet 37.5 mg PO BID 09/25/23 09/25/23 09/25/23 History Physical Exam 2 Vital Signs and Narrative: Vital Signs: Last Vital Signs Temp 97.5 F 09/25/23 15:33 Pulse 71 09/25/23 15:33 Resp 18 09/25/23 15:33 BP 149/78 H 09/25/23 15:33 Pulse Ox 97 09/25/23 15:33 O2 Del Method Room Air 09/25/23 15:33 BMI result Body Mass Index 26.0 General: AO X 3, no acute distress, jaundice Resp: CTA bilateral, no accessory muscles used CVS: S1,S2,RRR, 2+ bialteral edema GI: soft, non tender, non distended Neuro: motor grossly intact, alert Psych: appropriate affect, appropriate insight Results Labs 09/25/23 11:45 09/25/23 11:45 Labs: Laboratory Results - last 24 hr 09/25/23 09/25/23 11:45 15:44 MCV 88.2 MCH 29.4 MCHC 33.3 RDW 15.7 Plt Count 325 D MPV 10.3 Immature Gran % (Auto) 0.7 H Neut % (Auto) 82.9 H Lymph % (Auto) 7.8 L [place] % (Auto) 5.6 Eos % (Auto) 2.1 Baso % (Auto) 0.9 Lymph # (Auto) 0.7 L [place] # (Auto) 0.5 Eos # (Auto) 0.2 Baso # (Auto) 0.1 Abs Immat Gran (auto) 0.06 H Absolute Neuts (auto) 7.1 Absolute Nucleated RBC 0.000 Nucleated RBC % (auto) 0.0 PT 14.1 H INR 1.2 H Anion Gap 15 Estim Creat Clear Calc 32.6 Estimated GFR 36 Random Glucose 321 H Calcium 9.5 Total Bilirubin 15.0 H AST 332 H ALT 432 H Alkaline Phosphatase 1440 H Total Protein 7.6 Albumin 3.5 Lipase 1126 H Acetaminophen < 3 Imaging Radiologist's Impressions: Impressions Abdomen Ultrasound 09/25/23 14:58 IMPRESSION: 1. A 4.3 cm pancreatic head mass is seen. There is secondary dilatation of the pancreatic duct, the common bile duct and the intrahepatic ductal system. Recommend further evaluation with CT or MRI (pancreatic mass protocol). 2. The gallbladder is surgically absent. 3. There is mild right hydronephrosis. 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, diabetes, peripheral vascular disease presented with painless jaundice Obstructive jaundice Likely due to pancreatic mass Check CT abdomen NPO after midnight for ERCP with stent placement Outpatient Oncology referral Paroxysmal atrial fibrillation Hold Eliquis for procedure Continue diltiazem, metoprolol Chronic right-sided heart failure Continue Lasix CKD 2 Stable Diabetes Hold orals, insulin sliding scale DVT prophylaxis-mechanical for now due to planned procedure Full code patient with obstructive jaundice, requiring intervention, expected to need atleast 2 midnights inpatient Quality Stroke Does the patient have a stroke diagnosis?: No VTE Prior VTE?: No VTE Risk Level:: Medical - moderate - high VTE Device Contraindication: Treatment Not Indicated VTE Drug Contraindication: N/A - Med Ordered
--- NOTE | 2023-09-25 16:13 | PHA.MEDREC ---
Pharmacy Consult ? Medication Reconciliation Pharmacy has completed the medication reconciliation. Patient had updated list of medications that match claim history. Dexter ArthurD
[2023-09-25] MEDS: iohexoL 350 MG/ML 100 ML INFUS..BTL IV (16:17)
[2023-09-25 18:18] LABS: Glucose, Whole Blood 164 mg/dL (60-115)
[2023-09-25 18:22] VITALS: BP 145/75; PULSE 72; RESP 18; TEMP 36.5; O2SAT 96
[2023-09-25] MEDS: 0.9 % Sodium Chloride Flush 3 ML SYRINGE IVFLUSH (18:23)
[2023-09-25] MEDS: Insulin Lispro 100 UNIT/ML 3 ML VIAL SUBCUT ×2 (18:41→20:31)
[2023-09-25 18:53] LABS: Appearance Urine Clear; Glucose Urine UA >=1000 mg/dL (Negative); Leukocyte Esterase Urine Negative (Negative); Nitrite Urine Negative (Negative); PH 5.5 (5.0-9.0); Specific Gravity - Urine >= 1.030 (1.005-1.025); UMIC TRIGGER UACC YES; Urine Blood Negative (Negative); Urine Ketones Trace mg/dL (Negative); Urine Protein 30 (1+) mg/dL (Neg-Trace)
[2023-09-25 18:54] LABS: Color Urine Yellow
[2023-09-25 18:56] LABS: Bacteria Urine None Seen (None Seen); Hyaline Casts Urine 0-2 /LPF (0-2); RBC Urine 0-2 /HPF (0-2); Squamous Epithelial Cell Urine 0-2 /HPF (0-2); WBC Urine 0-5 /HPF (0-5)
[2023-09-25 20:24] VITALS: BP 127/60; PULSE 77; RESP 18; TEMP 36.5; O2SAT 97
[2023-09-25 20:26] LABS: Glucose, Whole Blood 304 mg/dL (60-115)
[2023-09-25] MEDS: Metoprolol Tartrate 12.5 MG HALFTAB 37.5 MG PO (20:31)
[2023-09-25] MEDS: Atorvastatin Calcium 10 MG TABLET PO (20:31)
[2023-09-26 05:47] VITALS: BP 116/50; PULSE 70; RESP 20; TEMP 36.4; O2SAT 95
[2023-09-26 05:50] VITALS: BP 109/52; PULSE 60; RESP 19; TEMP 36.8; O2SAT 97
[2023-09-26 06:47] LABS: Hematocrit 35.1 % (37.0-47.0); Hemoglobin 11.7 g/dl (12.0-16.0); Mean Corpuscular HGB Conc 33.3 g/dl (31.0-35.0); Mean Corpuscular Hemoglobin 29.4 pg (27.0-33.0); Mean Corpuscular Volume 88.2 fL (80.0-98.0); Mean Platelet Volume 10.5 fL (9.4-12.3); Platelet Count 267 X10*3/uL (160-400); Red Blood Count 3.98 X10*6/uL (4.20-5.50); Red Cell Distribution Width 15.9 % (11.0-16.0)
[2023-09-26 06:55] LABS: Alanine Aminotransferase 365 U/L (0-31); Albumin Level 2.9 g/dL (3.5-5.0); Alkaline Phosphatase 1401 U/L (39-117); Anion Gap 16 (12-20); Aspartate Amino Transferase 315 U/L (5-31); Bilirubin Direct 11.1 mg/dL (0.0-0.5); Bilirubin Total 14.6 mg/dL (0.0-1.0); Blood Urea Nitrogen 25 mg/dL (9-16); Calcium 8.9 mg/dL (8.4-10.2); Carbon Dioxide 20 mmol/L (22-29); Chloride 105 mmol/L (96-108); Creatinine Clr Calc Pharmacy 46.4; Estimated Glomerular Filt Rate 54; Glucose Fasting 217 mg/dL (60-99); Magnesium 2.4 mg/dL (1.6-2.6); Potassium 3.6 mmol/L (3.3-5.1); Sodium 137 mmol/L (135-145); Total Protein 6.7 g/dL (6.5-8.0)
[2023-09-26 07:22] LABS: Glucose, Whole Blood 193 mg/dL (60-115)
[2023-09-26] MEDS: 0.9 % Sodium Chloride Flush 3 ML SYRINGE IVFLUSH ×3 (07:35→21:01)
[2023-09-26] MEDS: Insulin Lispro 100 UNIT/ML 3 ML VIAL SUBCUT ×4 (07:35→21:02)
[2023-09-26 08:13] LABS: HBc Num1 0.12 S/CO (0.00-0.79); HBsAGNum1 0.19 S/CO (0.00-0.99); Hepatitis A Antibody IgM 0.28 Index (0-0.79); Hepatitis B Core Antibody Nonreactive (Nonreactive); Hepatitis B Surface Antigen Negative (Negative); ~HepC Num1 0.08 S/CO (0.00-0.79); ~Hepatitis A Antibody IgM Nonreactive (Nonreactive); ~Hepatitis B Surface Antibody NONREACTIVE (Nonreactive); ~Hepatitis C Antibody Nonreactive (Nonreactive)
--- NOTE | 2023-09-26 08:44 | PM.GICN ---
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 Pt noted urine was dark and stool was pale, son told her she was yellow, so came to the ED. Sx were noted over the weekend, but says before this she felt fine, appetite has been poor, 5 # weight loss over last 1 month. She was on levoflox for 10 d recently for foot infection She denies, fever and abdominal pain Imaging has revealed panc mass with markedly dilated cbd and PD. Review of Systems Review of Systems: Constitutional : No Weight loss, No Fever, No Chills ENT/Mouth : No sore throat, No Rhinorrhea Eyes: No Swelling, No Redness Cardiovascular : No Chest Pain, No SOB, No Edema Respiratory : No Cough, No Sputum, No Wheezing Gastrointestinal : see HPI Genitourinary : NO Dysuria, No Urinary Frequency, No Hematuria, No Urgency Musculoskeletal : + joint pain, No Myalgias, No Joint Swelling Skin : No Skin Lesions, No rash--jaundice Neuro : No Weakness, No Numbness, No Dizziness, No Headache Psych : No Anxiety/Panic, No Depression Heme/Lymph: No Bruising, No Lymphadenopathy Endocrine : No Polyuria, No Polydipsia All other systems reviewed and are negative. [facility] Past Medical History Medical History CHF (congestive heart failure) CKD (chronic kidney disease) Afib Family History Pertinent family history: denies fh of pancreatic ca Social History Social History Household Members: None Household Members Other:: Son lives upstairs (multi-family home) Housing: House Do you presently have visiting nurse or other home services: No Alcohol intake: never Patient Tobacco Use Status: Never used Tobacco e-Cigarette/Vaping Use: Never Used Second Hand Smoke Exposure: No service: No Meds Allergies Allergy/AdvReac Type Severity Reaction Status Date / Time doxycycline Allergy Rash Verified 09/25/23 11:32 Active Medications: Current Medications Atorvastatin Calcium (Atorvastatin Calcium 10 Mg Tablet) 10 mg PO BEDTIME ZENY Last Admin: 09/25/23 20:31 Dose: 10 mg Diltiazem HCl (Diltiazem Hcl Cd 240 Mg Cap.Er.Deg) 240 mg PO DAILY [facility]; Protocol Furosemide (Furosemide 40 Mg Tablet) 40 mg PO BID@0900,1200 [facility]; Protocol Glucose (Glucose Gel 15 Gm Gel..Gram.) 15 gm PO Q15M PRN; Protocol PRN Reason: per Hypoglycemia Standing Ord. Dextrose (D10) 250 mls @ 750 mls/hr IV Q15M PRN; Protocol PRN Reason: per Hypoglycemia Standing Ord. Insulin Human Lispro (Insulin Lispro 100 Unit/Ml 3 Ml Vial) 0 unit SUBCUT QIDACHS [facility]; Protocol Last Admin: 09/26/23 07:35 Dose: 2 unit Metoprolol Tartrate (Metoprolol Tartrate 12.5 Mg Halftab) 37.5 mg PO BID [facility]; Protocol Last Admin: 09/25/23 20:31 Dose: 37.5 mg Sodium Chloride (0.9 % Sodium Chloride Flush 3 Ml Syringe) [facility] Last Admin: 09/26/23 07:35 Dose: 3 ml Home Medications ?Medication ?Instructions ?Recorded ?Confirmed ?Last Taken ?Type apixaban 5 mg tablet (Eliquis) 5 mg PO BID 09/25/23 09/25/23 09/25/23 History atorvastatin 10 mg tablet 10 mg PO BEDTIME 09/25/23 09/25/23 09/24/23 History diltiazem HCl 240 mg 240 mg PO DAILY 09/25/23 09/25/23 09/25/23 History capsule,extended release 24 hr empagliflozin 25 mg-metformin ER 1 tab PO DAILY 09/25/23 09/25/23 09/25/23 History 1,000 mg tablet,extended release 24hr (Synjardy XR) furosemide 40 mg tablet 40 mg PO BID@0900,1200 09/25/23 09/25/23 09/25/23 History metoprolol tartrate 25 mg tablet 37.5 mg PO BID 09/25/23 09/25/23 09/25/23 History Physical Exam Vital Signs: Vital Signs: Last Vital Signs Temp 98.2 F 09/26/23 05:50 Pulse 60 09/26/23 05:50 Resp 19 09/26/23 05:50 BP 109/52 L 09/26/23 05:50 Pulse Ox 97 09/26/23 05:50 O2 Del Method Room Air 09/26/23 05:50 BMI result Body Mass Index 26.0 EXAM: GENERAL: The patient is relaxed, jaundiced VITAL SIGNS:see workflow HEENT: +icteric sclerae, PERRLA, EOMI. Oropharynx clear. Moist mucous membranes. Conjunctivae appear well perfused. No thyroid mass. CHEST: Chest wall is nontender. HEART: Regular rate and rhythm without murmurs. LUNGS: Clear to auscultation bilaterally. ABDOMEN: Soft, positive bowel sounds, nontender, no organomegaly.no flank tenderness SKIN: No rash, no excessive bruising, petechiae, or purpura. NEUROLOGIC: Cranial nerves II-XII intact without motor/sensory deficit. Psych: normal affect Results Labs 09/26/23 06:17 09/26/23 06:17 Labs: Short CBC 09/25/23 09/26/23 Range/Units 11:45 06:17 WBC 8.5 7.0 (4.8-10.8) X10*3/uL Hgb 13.0 11.7 L (12.0-16.0) g/dl Hct 39.0 35.1 L (37.0-47.0) % Plt Count 325 D 267 (160-400) X10*3/uL BMP 09/25/23 09/26/23 11:45 06:17 Sodium 133 L 137 Potassium 3.4 3.6 Chloride 98 105 Carbon Dioxide 23 20 L BUN 26 H 25 H Creatinine 1.44 H 1.01 Calcium 9.5 8.9 D Liver Function 09/25/23 09/26/23 Range/Units 11:45 06:17 Total Bilirubin 15.0 H 14.6 H (0.0-1.0) mg/dL Direct Bilirubin 11.1 H (0.0-0.5) mg/dL AST 332 H 315 H (5-31) U/L ALT 432 H 365 H (0-31) U/L Alkaline Phosphatase 1440 H 1401 H (39-117) U/L Albumin 3.5 2.9 L (3.5-5.0) g/dL Urine 09/25/23 Range/Units 18:40 Urine Color Yellow Urine Appearance Clear Urine pH 5.5 (5.0-9.0) Ur Specific [place] >= 1.030 H (1.005-1.025) Urine Protein 30 (1+) H (Neg-Trace) mg/dL Urine Glucose (UA) >=1000 H (Negative) mg/dL Imaging CT scan - abdomen: Attestation: I personally reviewed and interpreted this imaging study as follows: (panc mass, dilated PD and cbd) Assessment and Plan (1) Biliary obstruction: Status: Acute (2) Pancreatic mass: Status: Acute Plan 1/Obstructive jaundice from pancreatic mass PLAN: 1/ plan for ercp tomorrow, eliquis has been held, Patient was on jardance but procedure is relatively urgent --anesthesia aware 2/ Will plan for stent and brushings, bx, possibly spyglass, if unable to access then will need IR evaluation Procedures Date of Service Date of Service: 09/27/23
[2023-09-26] MEDS: Metoprolol Tartrate 12.5 MG HALFTAB 37.5 MG PO ×2 (08:51→21:02)
[2023-09-26] MEDS: Furosemide 40 MG TABLET PO ×2 (08:51→12:43)
--- NOTE | 2023-09-26 08:59 | PC.NURSE ---
this RN resumed care of pt at this time. a&ox4. vss and up to date. pt extremely jaundice in nature. skin/sclera yellow upon visualization. pt denies pain. 1+ nonpitting edema noted in LE bilaterally. no edema noted elsewhere throughout. pt remains NPO at this time aside from sip of water w/ morning medication. NPO since midnight. medication administered per provider order. pharmacy called/notified d/t missing medication - will administer when able. pt has no complaints aside from stating she is hungry. no sob/wob noted. respirations even and unlabored. resting comfortably in bed in no apparent distress. GI consult pending. plan of care ongoing. call verdugo placed within reach.
--- NOTE | 2023-09-26 09:10 | PC.NURSE ---
Procedure cancelled for today, will be rescheduled for tomorrow
--- NOTE | 2023-09-26 09:13 | P.CDIM_ITS ---
PROVIDER RESPONSE TEXT: To clarify, the appropriate diagnosis supported by the clinical indicators: Hyperglycemia: hyperlgycemia QUERY TEXT: PHYSICIAN'S DOCUMENTATION REQUEST Date of Query: 09/26/2023 09:01 AM EDT Patient Name: Doris Tavarez Admit Date: 09/25/2023 Dear Guillermo Rubin, A review of the medical record indicates additional documentation may be needed. Please review below and update the documentation accordingly. Clinical Indicators: LABS: POC glucose 164 304 H Insulin Is there a diagnosis that correlates with the lab findings above: Hyperglycemia possible, suspected, probable etc. Other Other (explain) Clinically unable to determine (explain) Thank you, Sabine Miles, CCS, CDIS Use of terms such as suspected, likely, concern for, or probable (associated with a specific diagnosi s that is being evaluated, monitored, or treated as if it exists) are acceptable and can be coded in the inpatient se tting, when documented at the time of discharge. Please use your independent medical judgment in providing your response. THIS QUERY IS PART OF THE PERMANENT MEDICAL RECORD
--- NOTE | 2023-09-26 09:18 | PC.NURSE ---
diet order changed by dr. schuster at this time. pt no longer NPO d/t ERCP being cancelled since pt needs to be off of eloquis x 48 hrs. diabetic diet tray placed by RN at this time.
[2023-09-26] MEDS: dilTIAZem HCL CD 240 MG CAP.ER.DEG PO (09:26)
--- NOTE | 2023-09-26 10:39 | HO.PM.IMPN ---
Subjective Subjective Date of Service: 09/26/23 Interval History: no complaints Physical Exam Vital Signs: Vital Signs: Last Vital Signs Temp 98.2 F 09/26/23 05:50 Pulse 60 09/26/23 05:50 Resp 19 09/26/23 05:50 BP 109/52 L 09/26/23 05:50 Pulse Ox 97 09/26/23 05:50 O2 Del Method Room Air 09/26/23 05:50 BMI result Body Mass Index 26.0 General: AO X 3, no acute distress, jaundiced Resp: CTA bilateral, no accessory muscles used CVS: S1,S2,RRR, 2+ bilateral edema GI: soft, non tender, non distended Neuro: motor grossly intact, alert Psych: appropriate affect, appropriate insight Objective Data Active Medications Atorvastatin Calcium (Atorvastatin Calcium 10 Mg Tablet) 10 mg PO BEDTIME [facility] Last Admin: 09/25/23 20:31 Dose: 10 mg Documented By: CHADD Diltiazem HCl (Diltiazem Hcl Cd 240 Mg Cap.Er.Deg) 240 mg PO DAILY [facility]; Protocol Last Admin: 09/26/23 09:26 Dose: 240 mg Documented By: DAVID Furosemide (Furosemide 40 Mg Tablet) 40 mg PO BID@0900,1200 [facility]; Protocol Last Admin: 09/26/23 08:51 Dose: 40 mg Documented By: DAVID Glucose (Glucose Gel 15 Gm Gel..Gram.) 15 gm PO Q15M PRN; Protocol PRN Reason: per Hypoglycemia Standing Ord. Dextrose (D10) 250 mls @ 750 mls/hr IV Q15M PRN; Protocol PRN Reason: per Hypoglycemia Standing Ord. Insulin Human Lispro (Insulin Lispro 100 Unit/Ml 3 Ml Vial) 0 unit SUBCUT QIDACHS [facility]; Protocol Last Admin: 09/26/23 07:35 Dose: 2 unit Documented By: DAVID Metoprolol Tartrate (Metoprolol Tartrate 12.5 Mg Halftab) 37.5 mg PO BID [facility]; Protocol Last Admin: 09/26/23 08:51 Dose: 37.5 mg Documented By: DVAID Sodium Chloride (0.9 % Sodium Chloride Flush 3 Ml Syringe) [facility] Last Admin: 09/26/23 07:35 Dose: 3 ml Documented By: DAVID Labs 09/26/23 06:17 09/26/23 06:17 Labs: Laboratory Results - last 24 hr 09/25/23 09/25/23 09/25/23 11:45 15:44 18:14 MCV 88.2 MCH 29.4 MCHC 33.3 RDW 15.7 Plt Count 325 D MPV 10.3 Immature Gran % (Auto) 0.7 H Neut % (Auto) 82.9 H Lymph % (Auto) 7.8 L [place] % (Auto) 5.6 Eos % (Auto) 2.1 Baso % (Auto) 0.9 Lymph # (Auto) 0.7 L [place] # (Auto) 0.5 Eos # (Auto) 0.2 Baso # (Auto) 0.1 Abs Immat Gran (auto) 0.06 H Absolute Neuts (auto) 7.1 Absolute Nucleated RBC 0.000 Nucleated RBC % (auto) 0.0 PT 14.1 H INR 1.2 H Anion Gap 15 Estim Creat Clear Calc 32.6 Estimated GFR 36 POC Glucose 164 H Random Glucose 321 H Fasting Glucose Calcium 9.5 Magnesium Total Bilirubin 15.0 H Direct Bilirubin AST 332 H ALT 432 H Alkaline Phosphatase 1440 H Total Protein 7.6 Albumin 3.5 Lipase 1126 H Urine Color Urine Appearance Urine pH Ur Specific [place] Urine Protein Urine Glucose (UA) Urine Ketones Urine Blood Urine Nitrite Ur Leukocyte Esterase Urine RBC Urine WBC Ur Squamous Epith Cells Urine Bacteria Hyaline Casts Acetaminophen < 3 Hepatitis A IgM Ab Nonreactive Hep Bs Antigen Negative Hep Bs Antibody NONREACTIVE Hep B Core Total Ab Nonreactive Hepatitis C Ab (EIA) Nonreactive 09/25/23 09/25/23 09/26/23 18:40 20:22 06:17 MCV 88.2 MCH 29.4 MCHC 33.3 RDW 15.9 Plt Count 267 MPV 10.5 Immature Gran % (Auto) Neut % (Auto) Lymph % (Auto) [place] % (Auto) Eos % (Auto) Baso % (Auto) Lymph # (Auto) [place] # (Auto) Eos # (Auto) Baso # (Auto) Abs Immat Gran (auto) Absolute Neuts (auto) Absolute Nucleated RBC 0.000 Nucleated RBC % (auto) 0.0 PT INR Anion Gap 16 Estim Creat Clear Calc 46.4 Estimated GFR 54 POC Glucose 304 H Random Glucose Fasting Glucose 217 H Calcium 8.9 D Magnesium 2.4 Total Bilirubin 14.6 H Direct Bilirubin 11.1 H AST 315 H ALT 365 H Alkaline Phosphatase 1401 H Total Protein 6.7 Albumin 2.9 L Lipase Urine Color Yellow Urine Appearance Clear Urine pH 5.5 Ur Specific [place] >= 1.030 H Urine Protein 30 (1+) H Urine Glucose (UA) >=1000 H Urine Ketones Trace Urine Blood Negative Urine Nitrite Negative Ur Leukocyte Esterase Negative Urine RBC 0-2 Urine WBC 0-5 Ur Squamous Epith Cells 0-2 Urine Bacteria None Seen Hyaline Casts 0-2 Acetaminophen Hepatitis A IgM Ab Hep Bs Antigen Hep Bs Antibody Hep B Core Total Ab Hepatitis C Ab (EIA) 09/26/23 07:17 MCV MCH MCHC RDW Plt Count MPV Immature Gran % (Auto) Neut % (Auto) Lymph % (Auto) [place] % (Auto) Eos % (Auto) Baso % (Auto) Lymph # (Auto) [place] # (Auto) Eos # (Auto) Baso # (Auto) Abs Immat Gran (auto) Absolute Neuts (auto) Absolute Nucleated RBC Nucleated RBC % (auto) PT INR Anion Gap Estim Creat Clear Calc Estimated GFR POC Glucose 193 H Random Glucose Fasting Glucose Calcium Magnesium Total Bilirubin Direct Bilirubin AST ALT Alkaline Phosphatase Total Protein Albumin Lipase Urine Color Urine Appearance Urine pH Ur Specific [place] Urine Protein Urine Glucose (UA) Urine Ketones Urine Blood Urine Nitrite Ur Leukocyte Esterase Urine RBC Urine WBC Ur Squamous Epith Cells Urine Bacteria Hyaline Casts Acetaminophen Hepatitis A IgM Ab Hep Bs Antigen Hep Bs Antibody Hep B Core Total Ab Hepatitis C Ab (EIA) 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, diabetes, peripheral vascular disease presented with painless jaundice Obstructive jaundice due to pancreatic mass vs cholangiocarcinoma vs small bowel neoplasm NPO after midnight for ERCP with stent placement Outpatient Oncology referral eliquis on hold - last dose AM 09/25/23 Paroxysmal atrial fibrillation Hold Eliquis for procedure Continue diltiazem, metoprolol Chronic right-sided heart failure Continue Lasix CKD 2 Stable Diabetes with hyperglycemia Hold orals, insulin sliding scale DVT prophylaxis-mechanical for now due to planned procedure Full code reason for continued hospitalization:plan for ercp tomorrow to relieve obstruction Quality Stroke Does the patient have a stroke diagnosis?: No VTE Prior VTE?: No VTE Risk Level:: Medical - moderate - high VTE Device Contraindication: Treatment Not Indicated VTE Drug Contraindication: N/A - Med Ordered
--- NOTE | 2023-09-26 11:49 | MHC.CM.PN ---
pt lives with family had no previous services she hs her own ride home when dcd home no servies
[2023-09-26 13:48] LABS: Glucose, Whole Blood 215 mg/dL (60-115)
[2023-09-26 15:17] VITALS: BP 116/60; PULSE 63; RESP 16; TEMP 36.7; O2SAT 97
--- NOTE | 2023-09-26 15:19 | PC.NURSE ---
vss and up to date. IV in right AC flushed - patent/intact. pt denies pain. pt continues to rest comfortably in no apparent distress. no sob/wob noted. respirations remain even and unlabored. pt continues to wait for bed assignment at this time. plan of care ongoing. call verdugo placed within reach.
[2023-09-26 17:53] LABS: Glucose, Whole Blood 296 mg/dL (60-115)
[2023-09-26 20:12] VITALS: BP 150/69; PULSE 76; RESP 15; TEMP 36; O2SAT 98
[2023-09-26 20:21] VITALS: BMI 26.2
[2023-09-26 20:37] LABS: Glucose, Whole Blood 297 mg/dL (60-115)
[2023-09-26] MEDS: Atorvastatin Calcium 10 MG TABLET PO (21:05)
[2023-09-27] VITALS (11 sets, daily range): BP systolic 105–151; BP diastolic 54–71; PULSE 55–69; RESP 12–18; TEMP 36–36.9; O2SAT 95–100
[2023-09-27 07:30] LABS: Glucose, Whole Blood 230 mg/dL (60-115)
[2023-09-27] MEDS: Metoprolol Tartrate 12.5 MG HALFTAB 37.5 MG PO ×2 (08:59→20:29)
[2023-09-27] MEDS: 0.9 % Sodium Chloride Flush 3 ML SYRINGE IVFLUSH ×2 (08:59→23:23)
[2023-09-27] MEDS: dilTIAZem HCL CD 240 MG CAP.ER.DEG PO (08:59)
[2023-09-27 09:03] LABS: Alanine Aminotransferase 389 U/L (0-31); Albumin Level 3.1 g/dL (3.5-5.0); Alkaline Phosphatase 1550 U/L (39-117); Anion Gap 13 (12-20); Aspartate Amino Transferase 374 U/L (5-31); Bilirubin Total 18.9 mg/dL (0.0-1.0); Blood Urea Nitrogen 26 mg/dL (9-16); Calcium 9.4 mg/dL (8.4-10.2); Carbon Dioxide 25 mmol/L (22-29); Chloride 102 mmol/L (96-108); Creatinine Clr Calc Pharmacy 36.5; Estimated Glomerular Filt Rate 40; Glucose Random 227 mg/dL (60-115); Potassium 3.4 mmol/L (3.3-5.1); Sodium 137 mmol/L (135-145); Total Protein 6.8 g/dL (6.5-8.0)
[2023-09-27 11:11] LABS: Glucose, Whole Blood 197 mg/dL (60-115)
--- NOTE | 2023-09-27 12:01 | HO.PM.IMPN ---
Subjective Subjective Date of Service: 09/27/23 Interval History: seen and evaluated this morning fasting overnight denies fever or chills jaundiced looking Review of Systems Review of Systems: Yes all other systems are reviewed and are negative Physical Exam Vital Signs: Vital Signs: Last Vital Signs Temp 97.5 F 09/27/23 07:15 Pulse 69 09/27/23 07:15 Resp 16 09/27/23 07:15 BP 122/63 09/27/23 07:15 Pulse Ox 97 09/27/23 07:15 O2 Del Method Room Air 09/27/23 07:15 BMI result Body Mass Index 26.2 Const: Other: Constitutional : Awake, interactive, jaundiced, not in distress Neck : Normal inspection, Supple Cardiovascular : RRR, no JVP, no lower extremity edema Respiratory : good bilateral air entry, no crackles, wheezes or rhonchi Gastrointestinal: soft, lax, Normal bowel sounds, Non tender Skin : Warm, Dry Neurological : Alert & oriented x3, No focal deficit Objective Data Active Medications Atorvastatin Calcium (Atorvastatin Calcium 10 Mg Tablet) 10 mg PO BEDTIME [facility] Last Admin: 09/26/23 21:05 Dose: 10 mg Documented By: MASON Diltiazem HCl (Diltiazem Hcl Cd 240 Mg Cap.Er.Deg) 240 mg PO DAILY [facility]; Protocol Last Admin: 09/27/23 08:59 Dose: 240 mg Documented By: AZALEA Furosemide (Furosemide 40 Mg Tablet) 40 mg PO BID@0900,1200 [facility]; Protocol Last Admin: 09/27/23 11:13 Dose: Not Given Documented By: AZALEA Non-Admin Reason: Patient Refused Glucose (Glucose Gel 15 Gm Gel..Gram.) 15 gm PO Q15M PRN; Protocol PRN Reason: per Hypoglycemia Standing Ord. Dextrose (D10) 250 mls @ 750 mls/hr IV Q15M PRN; Protocol PRN Reason: per Hypoglycemia Standing Ord. Insulin Human Lispro (Insulin Lispro 100 Unit/Ml 3 Ml Vial) 0 unit SUBCUT QIDACHS [facility]; Protocol Last Admin: 09/27/23 11:12 Dose: Not Given Documented By: AZALEA Non-Admin Reason: NPO Metoprolol Tartrate (Metoprolol Tartrate 12.5 Mg Halftab) 37.5 mg PO BID [facility]; Protocol Last Admin: 09/27/23 08:59 Dose: 37.5 mg Documented By: AZALEA Sodium Chloride (0.9 % Sodium Chloride Flush 3 Ml Syringe) 3 ml IVFLUSH QSHIFT [facility] Last Admin: 09/27/23 08:59 Dose: 3 ml Documented By: AZALEA Labs 09/26/23 06:17 09/27/23 08:28 Labs: Laboratory Results - last 24 hr 09/26/23 09/26/23 09/26/23 13:43 17:47 20:32 Hold Purple Top Anion Gap Estim Creat Clear Calc Estimated GFR POC Glucose 215 H 296 H 297 H Random Glucose Calcium Total Bilirubin AST ALT Alkaline Phosphatase Total Protein Albumin 09/27/23 09/27/23 09/27/23 07:20 08:28 11:02 Hold Purple Top SEE NOTE Anion Gap 13 Estim Creat Clear Calc 36.5 Estimated GFR 40 POC Glucose 230 H 197 H Random Glucose 227 H Calcium 9.4 Total Bilirubin 18.9 H AST 374 H ALT 389 H Alkaline Phosphatase 1550 H Total Protein 6.8 Albumin 3.1 L Assessment and Plan (1) Pancreatic mass: Status: Acute (2) Biliary obstruction: Status: Acute (3) Transaminitis: Status: Acute Plan 73F PMH paroxysmal atrial fibrillation, chronic right-sided heart failure, 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, diabetes, peripheral vascular disease presented with painless jaundice Obstructive jaundice due to pancreatic mass vs cholangiocarcinoma vs small bowel neoplasm NPO a ERCP with stent placement by GI today Outpatient Oncology referral eliquis on hold - last dose AM 09/25/23 Paroxysmal atrial fibrillation Hold Eliquis for procedure Continue diltiazem, metoprolol Chronic right-sided heart failure Continue Lasix CKD 2 Stable Diabetes with hyperglycemia Hold orals, insulin sliding scale DVT prophylaxis-mechanical for now due to planned procedure Full code reason for continued hospitalization:plan for ercp to relieve obstruction Quality Stroke Does the patient have a stroke diagnosis?: No VTE Prior VTE?: No VTE Risk Level:: Medical - moderate - high VTE Device Contraindication: Treatment Not Indicated VTE Drug Contraindication: N/A - Med Ordered
--- NOTE | 2023-09-27 13:41 | P.PNGI_ITS ---
Subjective Subjective Date of Service: 09/27/23 Interval History: no change no abdominal pain no nausea or vomiting, LFT going higher Critical Care Time (minutes): 0 Physical Exam 2 Vital Signs: Vital Signs: Last Vital Signs Temp 97.5 F 09/27/23 07:15 Pulse 69 09/27/23 07:15 Resp 16 09/27/23 07:15 BP 122/63 09/27/23 07:15 Pulse Ox 97 09/27/23 07:15 O2 Del Method Room Air 09/27/23 07:15 BMI result Body Mass Index 26.2 EXAM: GENERAL: The patient is jaunduiced VITAL SIGNS:see workflow HEENT: icteric sclerae, PERRLA, EOMI. Oropharynx clear. Moist mucous membranes. Conjunctivae appear well perfused. No thyroid mass. CHEST: Chest wall is nontender. HEART: Regular rate and rhythm without murmurs. LUNGS: Clear to auscultation bilaterally. ABDOMEN: Soft, positive bowel sounds, nontender, no organomegaly.no flank tenderness SKIN: No rash, no excessive bruising, petechiae, or purpura. NEUROLOGIC: Cranial nerves II-XII intact without motor/sensory deficit. Psych: normal affect Objective Data Labs 09/26/23 06:17 09/27/23 08:28 Labs: Laboratory Results - last 24 hr 09/26/23 09/26/23 09/26/23 13:43 17:47 20:32 Hold Purple Top Sodium Potassium Chloride Carbon Dioxide Anion Gap BUN Creatinine Estim Creat Clear Calc Estimated GFR POC Glucose 215 H 296 H 297 H Random Glucose Calcium Total Bilirubin AST ALT Alkaline Phosphatase Total Protein Albumin 09/27/23 09/27/23 09/27/23 07:20 08:28 11:02 Hold Purple Top SEE NOTE Sodium 137 Potassium 3.4 Chloride 102 Carbon Dioxide 25 Anion Gap 13 BUN 26 H Creatinine 1.29 Estim Creat Clear Calc 36.5 Estimated GFR 40 POC Glucose 230 H 197 H Random Glucose 227 H Calcium 9.4 Total Bilirubin 18.9 H AST 374 H ALT 389 H Alkaline Phosphatase 1550 H Total Protein 6.8 Albumin 3.1 L Procedures Date of Service Date of Service: 09/27/23 Progress Note: A&P Assessment and plan (1) Biliary obstruction: Status: Acute Plan 1/ Obstructive jaundice from panc mass, LFT markedly elevated PLAN: 1/ ERCP today with stenting, brushings, bx Time Spent With Patient Time: Total time managing care of this patient today ____ minutes. Quality Stroke Does the patient have a stroke diagnosis?: No VTE Prior VTE?: No VTE Risk Level:: Medical - moderate - high VTE Device Contraindication: Treatment Not Indicated VTE Drug Contraindication: N/A - Med Ordered
--- NOTE | 2023-09-27 14:04 | P.CONAN_ITS ---
[facility] Active Problems Active Problems: All Active Problems Pancreatic mass (Acute) Biliary obstruction (Acute) Past Medical History Medical History CHF (congestive heart failure) CKD (chronic kidney disease) Afib Family History Family history of problems with anesthesia: No Surgical History History of Problems with Anesthesia: No Social History Social History Household Members: None Household Members Other:: Son lives upstairs (multi-family home) Housing: House Do you presently have visiting nurse or other home services: No Alcohol intake: never Patient Tobacco Use Status: Never used Tobacco e-Cigarette/Vaping Use: Never Used Second Hand Smoke Exposure: No service: No Meds Allergies Allergy/AdvReac Type Severity Reaction Status Date / Time doxycycline Allergy Rash Verified 09/25/23 11:32 Active Medications: Current Medications Atorvastatin Calcium (Atorvastatin Calcium 10 Mg Tablet) 10 mg PO BEDTIME [facility] Last Admin: 09/26/23 21:05 Dose: 10 mg Diltiazem HCl (Diltiazem Hcl Cd 240 Mg Cap.Er.Deg) 240 mg PO DAILY [facility]; Protocol Last Admin: 09/27/23 08:59 Dose: 240 mg Furosemide (Furosemide 40 Mg Tablet) 40 mg PO BID@0900,1200 [facility]; Protocol Last Admin: 09/27/23 11:13 Dose: Not Given Glucose (Glucose Gel 15 Gm Gel..Gram.) 15 gm PO Q15M PRN; Protocol PRN Reason: per Hypoglycemia Standing Ord. Dextrose (D10) 250 mls @ 750 mls/hr IV Q15M PRN; Protocol PRN Reason: per Hypoglycemia Standing Ord. Cefazolin Sodium 1 gm/ Sodium (Chloride) 50 mls @ 100 mls/hr IV ONCE ONE Stop: 09/27/23 14:09 Insulin Human Lispro (Insulin Lispro 100 Unit/Ml 3 Ml Vial) 0 unit SUBCUT QIDACHS [facility]; Protocol Last Admin: 09/27/23 11:12 Dose: Not Given Metoprolol Tartrate (Metoprolol Tartrate 12.5 Mg Halftab) 37.5 mg PO BID [facility]; Protocol Last Admin: 09/27/23 08:59 Dose: 37.5 mg Sodium Chloride (0.9 % Sodium Chloride Flush 3 Ml Syringe) 3 ml IVFLUSH QSHIFT [facility] Last Admin: 09/27/23 08:59 Dose: 3 ml Home Medications ?Medication ?Instructions ?Recorded ?Confirmed ?Last Taken ?Type apixaban 5 mg tablet (Eliquis) 5 mg PO BID 09/25/23 09/25/23 09/25/23 History atorvastatin 10 mg tablet 10 mg PO BEDTIME 09/25/23 09/25/23 09/24/23 History diltiazem HCl 240 mg 240 mg PO DAILY 09/25/23 09/25/23 09/25/23 History capsule,extended release 24 hr empagliflozin 25 mg-metformin ER 1 tab PO DAILY 09/25/23 09/25/23 09/25/23 History 1,000 mg tablet,extended release 24hr (Synjardy XR) furosemide 40 mg tablet 40 mg PO BID@0900,1200 09/25/23 09/25/23 09/25/23 History metoprolol tartrate 25 mg tablet 37.5 mg PO BID 09/25/23 09/25/23 09/25/23 History Exam Height,Weight and Vital Signs: Height 5 ft 4 in Weight 69.2 kg Last Vital Signs Temp 97.5 F 09/27/23 07:15 Pulse 69 09/27/23 07:15 Resp 16 09/27/23 07:15 BP 122/63 09/27/23 07:15 Pulse Ox 97 09/27/23 07:15 O2 Del Method Room Air 09/27/23 07:15 Pertinent Lab Results Pertinent Lab Results: Laboratory Tests 09/25/23 09/25/23 09/25/23 11:45 15:44 18:14 WBC 8.5 RBC 4.42 Hgb 13.0 Hct 39.0 MCV 88.2 MCH 29.4 MCHC 33.3 RDW 15.7 Plt Count 325 D MPV 10.3 Immature Gran % (Auto) 0.7 H Neut % (Auto) 82.9 H Lymph % (Auto) 7.8 L [place] % (Auto) 5.6 Eos % (Auto) 2.1 Baso % (Auto) 0.9 Lymph # (Auto) 0.7 L [place] # (Auto) 0.5 Eos # (Auto) 0.2 Baso # (Auto) 0.1 Abs Immat Gran (auto) 0.06 H Absolute Neuts (auto) 7.1 Absolute Nucleated RBC 0.000 Nucleated RBC % (auto) 0.0 Hold Purple Top PT 14.1 H INR 1.2 H Sodium 133 L Potassium 3.4 Chloride 98 Carbon Dioxide 23 Anion Gap 15 BUN 26 H Creatinine 1.44 H Estim Creat Clear Calc 32.6 Estimated GFR 36 POC Glucose 164 H Random Glucose 321 H Fasting Glucose Calcium 9.5 Magnesium Total Bilirubin 15.0 H Direct Bilirubin AST 332 H ALT 432 H Alkaline Phosphatase 1440 H Total Protein 7.6 Albumin 3.5 Lipase 1126 H Urine Color Urine Appearance Urine pH Ur Specific [place] Urine Protein Urine Glucose (UA) Urine Ketones Urine Blood Urine Nitrite Ur Leukocyte Esterase Urine RBC Urine WBC Ur Squamous Epith Cells Urine Bacteria Hyaline Casts Acetaminophen < 3 Hepatitis A IgM Ab Nonreactive Hep Bs Antigen Negative Hep Bs Antibody NONREACTIVE Hep B Core Total Ab Nonreactive Hepatitis C Ab (EIA) Nonreactive 09/25/23 09/25/23 09/26/23 18:40 20:22 06:17 WBC 7.0 RBC 3.98 L Hgb 11.7 L Hct 35.1 L MCV 88.2 MCH 29.4 MCHC 33.3 RDW 15.9 Plt Count 267 MPV 10.5 Immature Gran % (Auto) Neut % (Auto) Lymph % (Auto) [place] % (Auto) Eos % (Auto) Baso % (Auto) Lymph # (Auto) [place] # (Auto) Eos # (Auto) Baso # (Auto) Abs Immat Gran (auto) Absolute Neuts (auto) Absolute Nucleated RBC 0.000 Nucleated RBC % (auto) 0.0 Hold Purple Top PT INR Sodium 137 Potassium 3.6 Chloride 105 Carbon Dioxide 20 L Anion Gap 16 BUN 25 H Creatinine 1.01 Estim Creat Clear Calc 46.4 Estimated GFR 54 POC Glucose 304 H Random Glucose Fasting Glucose 217 H Calcium 8.9 D Magnesium 2.4 Total Bilirubin 14.6 H Direct Bilirubin 11.1 H AST 315 H ALT 365 H Alkaline Phosphatase 1401 H Total Protein 6.7 Albumin 2.9 L Lipase Urine Color Yellow Urine Appearance Clear Urine pH 5.5 Ur Specific [place] >= 1.030 H Urine Protein 30 (1+) H Urine Glucose (UA) >=1000 H Urine Ketones Trace Urine Blood Negative Urine Nitrite Negative Ur Leukocyte Esterase Negative Urine RBC 0-2 Urine WBC 0-5 Ur Squamous Epith Cells 0-2 Urine Bacteria None Seen Hyaline Casts 0-2 Acetaminophen Hepatitis A IgM Ab Hep Bs Antigen Hep Bs Antibody Hep B Core Total Ab Hepatitis C Ab (EIA) 09/26/23 09/26/23 09/26/23 07:17 13:43 17:47 WBC RBC Hgb Hct MCV MCH MCHC RDW Plt Count MPV Immature Gran % (Auto) Neut % (Auto) Lymph % (Auto) [place] % (Auto) Eos % (Auto) Baso % (Auto) Lymph # (Auto) [place] # (Auto) Eos # (Auto) Baso # (Auto) Abs Immat Gran (auto) Absolute Neuts (auto) Absolute Nucleated RBC Nucleated RBC % (auto) Hold Purple Top PT INR Sodium Potassium Chloride Carbon Dioxide Anion Gap BUN Creatinine Estim Creat Clear Calc Estimated GFR POC Glucose 193 H 215 H 296 H Random Glucose Fasting Glucose Calcium Magnesium Total Bilirubin Direct Bilirubin AST ALT Alkaline Phosphatase Total Protein Albumin Lipase Urine Color Urine Appearance Urine pH Ur Specific [place] Urine Protein Urine Glucose (UA) Urine Ketones Urine Blood Urine Nitrite Ur Leukocyte Esterase Urine RBC Urine WBC Ur Squamous Epith Cells Urine Bacteria Hyaline Casts Acetaminophen Hepatitis A IgM Ab Hep Bs Antigen Hep Bs Antibody Hep B Core Total Ab Hepatitis C Ab (EIA) 09/26/23 09/27/23 09/27/23 20:32 07:20 08:28 WBC RBC Hgb Hct MCV MCH MCHC RDW Plt Count MPV Immature Gran % (Auto) Neut % (Auto) Lymph % (Auto) [place] % (Auto) Eos % (Auto) Baso % (Auto) Lymph # (Auto) [place] # (Auto) Eos # (Auto) Baso # (Auto) Abs Immat Gran (auto) Absolute Neuts (auto) Absolute Nucleated RBC Nucleated RBC % (auto) Hold Purple Top SEE NOTE PT INR Sodium 137 Potassium 3.4 Chloride 102 Carbon Dioxide 25 Anion Gap 13 BUN 26 H Creatinine 1.29 Estim Creat Clear Calc 36.5 Estimated GFR 40 POC Glucose 297 H 230 H Random Glucose 227 H Fasting Glucose Calcium 9.4 Magnesium Total Bilirubin 18.9 H Direct Bilirubin AST 374 H ALT 389 H Alkaline Phosphatase 1550 H Total Protein 6.8 Albumin 3.1 L Lipase Urine Color Urine Appearance Urine pH Ur Specific [place] Urine Protein Urine Glucose (UA) Urine Ketones Urine Blood Urine Nitrite Ur Leukocyte Esterase Urine RBC Urine WBC Ur Squamous Epith Cells Urine Bacteria Hyaline Casts Acetaminophen Hepatitis A IgM Ab Hep Bs Antigen Hep Bs Antibody Hep B Core Total Ab Hepatitis C Ab (EIA) 09/27/23 11:02 WBC RBC Hgb Hct MCV MCH MCHC RDW Plt Count MPV Immature Gran % (Auto) Neut % (Auto) Lymph % (Auto) [place] % (Auto) Eos % (Auto) Baso % (Auto) Lymph # (Auto) [place] # (Auto) Eos # (Auto) Baso # (Auto) Abs Immat Gran (auto) Absolute Neuts (auto) Absolute Nucleated RBC Nucleated RBC % (auto) Hold Purple Top PT INR Sodium Potassium Chloride Carbon Dioxide Anion Gap BUN Creatinine Estim Creat Clear Calc Estimated GFR POC Glucose 197 H Random Glucose Fasting Glucose Calcium Magnesium Total Bilirubin Direct Bilirubin AST ALT Alkaline Phosphatase Total Protein Albumin Lipase Urine Color Urine Appearance Urine pH Ur Specific [place] Urine Protein Urine Glucose (UA) Urine Ketones Urine Blood Urine Nitrite Ur Leukocyte Esterase Urine RBC Urine WBC Ur Squamous Epith Cells Urine Bacteria Hyaline Casts Acetaminophen Hepatitis A IgM Ab Hep Bs Antigen Hep Bs Antibody Hep B Core Total Ab Hepatitis C Ab (EIA) Airway Mallampati Class: III TM Dist: >3cm Neck ROM: Full Assessment and Plan Assessment Anesthesia Assessment: Anesthesia Plan Discussed and Chart Reviewed Final Anesthetic Review Family History of Problems with Anesthesia: No History of Problems with Anesthesia: No NPO: Yes ASA Class: IV Final Preanesthetic Review: No Changes in Pt Med Stat, Meds/Allgs Chart Reviewed , Consent Obtained/Reviewed and Anes Risks/Benef Reviewed Patient Risk: Intermediate Procedure Risk: Low Anesthetic Plan Anesthetic Plan: GA Disposition: Standard PACU
--- NOTE | 2023-09-27 14:09 | MHC.SHP ---
Pre-Procedural Eval Section A - 24 Hr Update-Section A only Date of Service: 09/27/23 The patient is an INPATIENT: Yes The patient has been examined within 24 hours of the surgical procedure. The History & Physical has been completed within 30 days and I have reviewed it.: Yes Section B - Complete if H&P > 30 days Chief Complaint: obstructive jaundice Allergies: Allergies Allergy/AdvReac Type Severity Reaction Status Date / Time doxycycline Allergy Rash Verified 09/25/23 11:32 Plan Diagnosis/Plan: Unchanged I have reviewed the history and physical and performed a pertinent physical examination on my patient. No changes have occurred unless specified. Time Spent With Patient Time: Total time managing care of this patient today ____ minutes.
--- NOTE | 2023-09-27 14:16 | PC.NURSE ---
Patient stated she was to see wound care clinic today as an outpatient, but did not due to being admitted to hospital. Stated electrical equipment technician saw/dressed wound to right foot on Sunday prior to her admission. Author updated floor RN to assess wound upon patient return as smell is evident. Dr. Cruz updated of all of the above as well as floor RN and [employer]ARE [employer]HER.
--- NOTE | 2023-09-27 14:20 | PC.NURSE ---
dr. daniel and dr. robertson aware that patient's last dose of Synjardy XR was 2 days ago prior to her admission. See doctors notes.
[2023-09-27 14:22] LABS: Glucose, Whole Blood 176 mg/dL (60-115)
--- NOTE | 2023-09-27 16:11 | W.PM.OPN ---
Operative Note Operative Note Date of Service: 09/27/23 Narrative: Description:?Endoscopic retrograde cholangiopancreatography (ERCP) PROCEDURE:?Endoscopic retrograde cholangiopancreatography with sphincterotomy, intraop cholangiogram with interpretation, balloon dilation of biliary stricture, biliary brushings and biopsy with stent placement INDICATION FOR THE PROCEDURE:?Patient with a history of painless obstructive jaundice and abn LFT MEDICATIONS:?General anesthesia. The risks of the procedure were made aware to the patient and consisted of medication reaction, bleeding, perforation, aspiration, and post ERCP pancreatitis. DESCRIPTION OF PROCEDURE:?After informed consent and appropriate sedation, the duodenoscope was inserted into the oropharynx, down the esophagus, and into the stomach. The scope was then advanced through the pylorus to the ampulla. The ampulla was slightly stenosed and bulging noted behind it. Several attempts made to access bile duct unsuccessful so needle knife used after which biliary access was gained. A cholangiogram revealed a markedly dilated proximal CBD and distal biliary stricture maybe about 4 cm long. After a sphincterotomy was performed a 8 mm x 4 cm hurricaone balloon was used to dilated the stricture with a gush of bile and Iv contrast then flowing through. bilairy brushings for cytology and FISH testing and biospy were taken. A 8.5 mm x 9 cm stent was then placed with good position confirmed by fluoroscopy. The procedure was then terminated and gastric secretions, air and juice aspirated FINDINGS: 1. biliary stricture s/p dilation and stent RECOMMENDATIONS: 1. NPO except ice chips today. 2. Advance diet tomorrow, 3. Repeat ERCP in 2-3 months for stent replacement pending further oncology and surgical input if deemed appropriate. 4. Restart eliquis in 48 hrs
[2023-09-27 17:45] LABS: Glucose, Whole Blood 199 mg/dL (60-115)
[2023-09-27 20:23] LABS: Glucose, Whole Blood 259 mg/dL (60-115)
[2023-09-27] MEDS: Insulin Lispro 100 UNIT/ML 3 ML VIAL SUBCUT (20:29)
[2023-09-27] MEDS: Atorvastatin Calcium 10 MG TABLET PO (20:29)
[2023-09-28 03:00] VITALS: BP 108/60; PULSE 58; RESP 16; TEMP 36.2; O2SAT 95
[2023-09-28 06:37] LABS: Alanine Aminotransferase 307 U/L (0-31); Albumin Level 3.1 g/dL (3.5-5.0); Alkaline Phosphatase 1434 U/L (39-117); Anion Gap 20 (12-20); Aspartate Amino Transferase 141 U/L (5-31); Bilirubin Total 6.8 mg/dL (0.0-1.0); Blood Urea Nitrogen 30 mg/dL (9-16); Calcium 9.4 mg/dL (8.4-10.2); Carbon Dioxide 18 mmol/L (22-29); Chloride 102 mmol/L (96-108); Creatinine Clr Calc Pharmacy 39.9; Estimated Glomerular Filt Rate 45; Glucose Random 383 mg/dL (60-115); Potassium 5.4 mmol/L (3.3-5.1); Sodium 135 mmol/L (135-145); Total Protein 7.2 g/dL (6.5-8.0)
[2023-09-28 07:03] LABS: Glucose, Whole Blood 325 mg/dL (60-115)
[2023-09-28 07:17] VITALS: BP 114/58; PULSE 58; RESP 16; TEMP 36; O2SAT 98
[2023-09-28 07:38] VITALS: BP 114/58
[2023-09-28] MEDS: Furosemide 40 MG TABLET PO (07:38)
[2023-09-28] MEDS: 0.9 % Sodium Chloride Flush 3 ML SYRINGE IVFLUSH (07:38)
[2023-09-28] MEDS: Insulin Lispro 100 UNIT/ML 3 ML VIAL SUBCUT ×3 (07:38→11:51)
[2023-09-28 07:39] VITALS: BP 114/58; PULSE 58
[2023-09-28] MEDS: dilTIAZem HCL CD 240 MG CAP.ER.DEG PO (07:39)
[2023-09-28] MEDS: Metoprolol Tartrate 12.5 MG HALFTAB 37.5 MG PO (07:39)
[2023-09-28] MEDS: Sodium Zirconium Cyclosilicate 10 GM POWD.PACK PO (09:21)
--- NOTE | 2023-09-28 11:00 | P.CNHO_ITS ---
Subjective - Subjective Chief complaint: Consult for: Pancreatic mass. Patient: new to practice Consult date: 09/28/23 Requesting Physician: Elissa. Primary Care Provider: Danyell Glass MD Family Provider: Maritza. Medical Summary: DIAGNOSIS: 1. PAINLESS JAUNDICE. 2. PANCREATIC MASS. HPI - Consult Narrative Reason for consult: Consult for: Pancreatic mass. Narrative: Doris Tavarez is a 73 year old presented on 09/24, with painless jaundice. She mentioned that over the past month or so she had a decreased appetite, and lost 5 lbs of weight. She reported generalized weakness. She denies any fever, chills nor abdominal pain. Her symptoms were initially attributed to right diabetic foot wound for which he was treated with 10 days of levofloxacin. However symptoms persisted. She then developed worsening yellowness of skin, noted by her son who urged her to came to ED.. Here she was found to have elevated bilirubin and transaminases. LFTs: 18.02/1550/374/432. Abdominal ultrasound from 09/24: suspicious for pancreatic mass. 1. A 4.3 cm pancreatic head mass is seen. There is secondary dilatation of the pancreatic duct, the common bile duct and the intrahepatic ductal system. Recommend further evaluation with CT or MRI (pancreatic mass protocol). 2. The gallbladder is surgically absent. 3. There is mild right hydronephrosis. CT scan of the abdomen pelvis from 09/24 revealed: There is a mass in the region of the pancreatic head which causes the double duct sign with obstruction of the pancreatic and bile duct. Possibilities should include adenocarcinoma of the pancreas. cholangiocarcinoma of the distal common bile duct is possible. Primary small bowel malignancy felt much less likely. Review of Systems 2 Review of Systems: She does feel rather fatigued. Denies fever chills or night sweats. Her appetite is okay. She has lost 5 lb. Denies any headache no dizziness. No chest pain or trouble breathing. Denies abdominal pain nausea vomiting heartburn indigestion. Bowels are working no gross blood in it. She had a colonoscopy 2 years ago at [facility]. Urine color has been dark. Denies any joint pain or muscle pain. No focal weakness. No depression. She had foot infection and has been on antibiotics. Blood sugars were elevated lately. All other systems are reviewed and are negative. 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 A sister developed breast cancer at the age of 59. Social History: She worked in [employer]. Her 3 years ago. She never smoked. Alcohol intake: never, only on Jace. Her son is getting next october. Smoked in Last 30 Days: No Use of substances other than those prescribed or required for medical reasons: No Review of Systems - Constitutional Reports system reviewed and no additional complaints, except as documented, Reports anorexia, Reports fatigue, Reports lack of energy, Reports malaise, Reports poor appetite, Reports weight loss - Eyes Reports system reviewed and no additional complaints, except as documented - ENT Reports system reviewed and no additional complaints, except as documented - Cardiovascular Reports system reviewed and no additional complaints, except as documented - Respiratory Reports no additional respiratory complaints - Gastrointestinal Reports system reviewed and no additional complaints, except as documented - Genitourinary Reports no additional female genitourinary complaints - Musculoskeletal Reports system reviewed and no additional complaints, except as documented - Integumentary/Breasts Skin/Breast: Reports no additional skin complaints - Neurologic Denies sensory deficit - Psychiatric Reports system reviewed and no additional complaints, except as documented - Endocrine Reports no additional endocrine complaints - Hematologic/Lymphatic Reports system reviewed and no additional complaints, except as documented - Allergic/Immunologic Reports system reviewed and no additional complaints, except as documented Oncology Screenings - ECOG Performance Status ECOG Performance Status: 2 [facility] Medical History: Medical History (Last Reviewed 09/25/23 @ 15:58 by Guillermo Rubin MD) Afib CHF (congestive heart failure) CKD (chronic kidney disease) Functional capacity: uses cane/walker Patient : No Social History: Social History (Last Reviewed 09/25/23 @ 15:58 by Guillermo Rubin MD) Living Situation History: Household Members: None Household Members Other:: Son lives upstairs (multi-family home) Housing: House Do you presently have visiting nurse or other home services: No Tobacco History: Patient Tobacco Use Status: Never used Tobacco e-Cigarette/Vaping Use: Never Used Second Hand Smoke Exposure: No Occupation Assessmet: service: No Home Medications and Allergies Current Medications: Current Medications Atorvastatin Calcium (Atorvastatin Calcium 10 Mg Tablet) 10 mg PO BEDTIME ZENY Last Admin: 09/27/23 20:29 Dose: 10 mg Diltiazem HCl (Diltiazem Hcl Cd 240 Mg Cap.Er.Deg) 240 mg PO DAILY [facility]; Protocol Last Admin: 09/28/23 07:39 Dose: 240 mg Furosemide (Furosemide 40 Mg Tablet) 40 mg PO BID@0900,1200 [facility]; Protocol Last Admin: 09/28/23 07:38 Dose: 40 mg Glucose (Glucose Gel 15 Gm Gel..Gram.) 15 gm PO Q15M PRN; Protocol PRN Reason: per Hypoglycemia Standing Ord. Dextrose (D10) 250 mls @ 750 mls/hr IV Q15M PRN; Protocol PRN Reason: per Hypoglycemia Standing Ord. Insulin Human Lispro (Insulin Lispro 100 Unit/Ml 3 Ml Vial) 0 unit SUBCUT QIDACHS [facility]; Protocol Last Admin: 09/28/23 07:38 Dose: 8 unit Metoprolol Tartrate (Metoprolol Tartrate 12.5 Mg Halftab) 37.5 mg PO BID [facility]; Protocol Last Admin: 09/28/23 07:39 Dose: 37.5 mg Sodium Chloride (0.9 % Sodium Chloride Flush 3 Ml Syringe) 3 ml IVFLUSH [facility] Last Admin: 09/28/23 07:38 Dose: 3 ml Home Medications ?Medication ?Instructions ?Recorded ?Confirmed ?Type apixaban 5 mg tablet (Eliquis) 5 mg PO BID 09/25/23 09/25/23 History atorvastatin 10 mg tablet 10 mg PO BEDTIME 09/25/23 09/25/23 History diltiazem HCl 240 mg 240 mg PO DAILY 09/25/23 09/25/23 History capsule,extended release 24 hr empagliflozin 25 mg-metformin ER 1 tab PO DAILY 09/25/23 09/25/23 History 1,000 mg tablet,extended release 24hr (Synjardy XR) furosemide 40 mg tablet 40 mg PO BID@0900,1200 09/25/23 09/25/23 History metoprolol tartrate 25 mg tablet 37.5 mg PO BID 09/25/23 09/25/23 History Allergies Allergy/AdvReac Type Severity Reaction Status Date / Time doxycycline Allergy Rash Verified 09/25/23 11:32 Physical Exam Vital signs: Vital Signs Temp 96.8 F 09/28/23 07:17 Pulse 58 09/28/23 07:39 Resp 16 09/28/23 07:17 BP 114/58 L 09/28/23 07:39 Pulse Ox 98 09/28/23 07:17 O2 Del Method Room Air 09/28/23 07:17 O2 Flow Rate 3 09/27/23 16:20 Intake & Output 09/27/23 09/28/23 09/28/23 18:59 06:59 18:59 Intake Total 1100 / 1100 Balance 1100 / 1100 Intake: Intake, Oral Amount 1100 / 1100 Other: IV Intake, Intraoperative 800 Amount Meal Refused No NPO Yes Number of Unmeasured Voids 1 1 Urine Bathroom Bathroom Urine Color Yellow Yellow Weight 69.2 kg - Constitutional Present: moderate distress - Routine HEENT Exam Head: Present: normal inspection, normocephalic Eye: Present: normal appearance ENT: Present: mucous membranes moist - Routine Neck Exam Present: supple - Routine Respiratory Exam Present: CTAB - Routine Cardiovascular Exam Cardiovascular: Present: RRR, S1, S2 - Routine Abdominal Exam Present: soft, tenderness - Routine Extremities Exam Present: nontender Hem/Onc Consult Result - Labs CBC & Chem 7: 09/26/23 06:17 09/28/23 05:15 Labs: BMP 09/28/23 05:15 Sodium 135 Potassium 5.4 H D Chloride 102 Carbon Dioxide 18 L BUN 30 H Creatinine 1.18 Calcium 9.4 Liver Function 09/28/23 Range/Units 05:15 Total Bilirubin 6.8 H (0.0-1.0) mg/dL Direct Bilirubin 5.0 H (0.0-0.5) mg/dL AST 141 H (5-31) U/L ALT 307 H (0-31) U/L Alkaline Phosphatase 1434 H (39-117) U/L Albumin 3.1 L (3.5-5.0) g/dL Assessment and Plan Patient Active problem list reviewed?: Yes (1) Pancreatic mass Status: Acute Assessment and plan: Doris Tavarez is a 73 year old presented with painless jaundice. Se had presented with painless jaundice. She mentioned that over the past month or so she had a decreased appetite, and lost 5 lbs of weight. She reported generalized weakness. Patient denies any fever abdominal pain. This was initially attributed to right diabetic foot wound for which he was treated with 10 days of levofloxacin. However symptoms persisted with worsening yellowing of skin, came to ED by request of her son. In ED found to have elevated bilirubin and transaminases. LFTs: 18.02/1550/374/432. Abdominal ultrasound from 09/24: suspicious for pancreatic mass. 1. A 4.3 cm pancreatic head mass is seen. There is secondary dilatation of the pancreatic duct, the common bile duct and the intrahepatic ductal system. Recommend further evaluation with CT or MRI (pancreatic mass protocol). 2. The gallbladder is surgically absent. 3. There is mild right hydronephrosis. CT scan of the abdomen pelvis from 09/24 revealed: There is a mass in the region of the pancreatic head which causes the double duct sign with obstruction of the pancreatic and bile duct. Possibilities should include adenocarcinoma of the pancreas. Cholangiocarcinoma of the distal common bile duct is possible. Primary small bowel malignancy felt much less likely. She underwent an ERCP with stent placement on 09/[address] Cruz. Procedure note: The ampulla was slightly stenosed and bulging noted behind it. Several attempts made to access bile duct unsuccessful so needle knife used after which biliary access was gained. A cholangiogram revealed a markedly dilated proximal CBD and distal biliary stricture maybe about 4 cm long. After a sphincterotomy was performed a 8 mm x 4 cm hurricaone balloon was used to dilated the stricture with a gush of bile and Iv contrast then flowing through. bilairy brushings for cytology and FISH testing and biospy were taken. A 8.5 mm x 9 cm stent was then placed with good position confirmed by fluoroscopy. Brushings were pending. LFTs from today: 6.01/1434/141/307. Her numbers are declining. PLAN: The patient will be going home over the weekend. I will see her back as an outpatient. By that time the pathology results will be back. Options for treatment include systemic chemotherapy. This includes FOLFIRINOX vs Gemzar Abraxane based regimen. Likely, the latter, in view of her age and comorbidities. The plan was discussed with her. Thank you for the consult. CC; Dr. Kimberly Glass. - Time Spent With Patient Time Spent with Patient (in minutes): 30
[2023-09-28 11:20] LABS: Glucose, Whole Blood 593 mg/dL (60-115)
[2023-09-28 11:34] VITALS: BP 101/53; PULSE 60; RESP 18; TEMP 36.3; O2SAT 97
[2023-09-28 12:10] LABS: Estimated Average Glucose 169 mg/dL; Hemoglobin A1c % 7.5 % (<6.0)
--- NOTE | 2023-09-28 12:12 | HO.POSTANES ---
Post Anesthesia Evaluation Post Anesthesia Evaluation Date of Service: 09/28/23 Vital Signs: Vital Signs Temp Pulse Resp BP Pulse Ox O2 Del Method 09/28/23 11:34 97.4 F 60 18 101/53 L 97 Room Air 09/28/23 07:39 58 114/58 L 09/28/23 07:38 114/58 L 09/28/23 07:17 96.8 F 58 16 114/58 L 98 Room Air 09/28/23 03:00 97.2 F 58 16 108/60 95 Room Air Anesthesia: General Endotracheal-GETA Mental Status: Awake Pain Control: Satisfactory Nausea/Vomiting: Mild Hydration: Adequate Anesthesia-Related Issues: No Anes. Related Issues
--- NOTE | 2023-09-28 12:41 | PM.DS ---
DS: Providers Provider Date of Service: 09/28/23 Date of admission: 09/25/23 16:07 Primary care physician: Danyell Glass MD Consults: 09/25/23 15:54 Consult to Gastroenterology Routine Consulting Provider: Joe Cruz Reason for consultation: obstructive jaundice 09/27/23 17:59 Consult to Wound Care Routine Reason for consultation: plantar R foot chronic ulcer 09/28/23 10:41 Consult to Hematology / Oncology Routine Consulting Provider: Ngozi Cortez Reason for consultation: Pancreatic mass, establishment of care. 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 Patient reports about 1 month of decreased appetite, 5 lb weight loss, weakness. Initially attributed to right diabetic foot wound for which he was treated with 10 days of levofloxacin. However symptoms persisted with worsening yellowing of skin, came to ED by request of her son. In ED found to have elevated bilirubin and transaminases, abdominal ultrasound suspicious for pancreatic mass. Patient denies any fever abdominal pain. Hospital course The patient was admitted for evlauation of picutre of Obstructive jaundice with transaminitis. A CT scan was concerning for possible pancreatic mass vs cholangiocarcinoma vs small bowel neoplasm. An ERCP was done with a stricutre formation stented by dr Cruz from GI who recommended follow up in 2-3 months for stent replacement. She was seen by dr Cortez from Oncology for establishment of care and will follow with her for biopsy result and treatment plan. she was able to tolerate diet as transaminitis improved significantly after stent placement. Eliquis to be held until Sunday evening per GI recommendations. Discharge Plan Follow with dr Cortez as outpatient for biopsy result and treatment plan Hold Eliquis until Sunday evening To follow with dr Cruz in 2-3 months for stent replacement Time Attestation Discharge Coordination Time (in mins): 35 Quality: Safe Use of Opioids Does Pt have an Active Cancer Diagnosis on the Problem List?: No Quality: Stroke Does the patient have a stroke diagnosis?: No Physical Exam Vital Signs: Vital Signs: Last Vital Signs Temp 97.4 F 09/28/23 11:34 Pulse 60 09/28/23 11:34 Resp 18 09/28/23 11:34 BP 101/53 L 09/28/23 11:34 Pulse Ox 97 09/28/23 11:34 O2 Del Method Room Air 09/28/23 11:34 O2 Flow Rate 3 09/27/23 16:20 BMI result Body Mass Index 26.2 Const: Other: Constitutional : Awake, interactive, mildly jaundiced, not in distress Neck : Normal inspection, Supple Cardiovascular : RRR, no JVP, no lower extremity edema Respiratory : good bilateral air entry, no crackles, wheezes or rhonchi Gastrointestinal: soft, lax, Normal bowel sounds, Non tender Skin : Warm, Dry Neurological : Alert & oriented x3, No focal deficit DS: Data Data Completed and Pending Pending studies at discharge: Pending at discharge 09/27/23 16:00 Surgical [PTH] Routine 09/27/23 16:31 Cytology [PTH] Routine Labs on day of discharge: Laboratory Results - last 24 hr 09/27/23 09/27/23 09/27/23 08:28 14:06 17:41 Sodium Potassium Chloride Carbon Dioxide Anion Gap BUN Creatinine Estim Creat Clear Calc Estimated GFR POC Glucose 176 H 199 H Random Glucose Estimat Average Glucose 169 Hemoglobin A1c % 7.5 H Calcium Total Bilirubin Direct Bilirubin AST ALT Alkaline Phosphatase Total Protein Albumin Carcinoembryonic Ag 09/27/23 09/28/23 09/28/23 20:18 05:15 06:53 Sodium 135 Potassium 5.4 H D Chloride 102 Carbon Dioxide 18 L Anion Gap 20 BUN 30 H Creatinine 1.18 Estim Creat Clear Calc 39.9 Estimated GFR 45 POC Glucose 259 H 325 H Random Glucose 383 H* Estimat Average Glucose Hemoglobin A1c % Calcium 9.4 Total Bilirubin 6.8 H Direct Bilirubin 5.0 H AST 141 H ALT 307 H Alkaline Phosphatase 1434 H Total Protein 7.2 Albumin 3.1 L Carcinoembryonic Ag 09/28/23 09/28/23 09:29 11:08 Sodium Potassium Chloride Carbon Dioxide Anion Gap BUN Creatinine Estim Creat Clear Calc Estimated GFR POC Glucose 593 H* Random Glucose Estimat Average Glucose Hemoglobin A1c % Calcium Total Bilirubin Direct Bilirubin AST ALT Alkaline Phosphatase Total Protein Albumin Carcinoembryonic Ag 14.[address] scan - abdomen: Radiologist's impression: ITS Impressions Abdomen Ultrasound 09/25/23 14:58 IMPRESSION: 1. A 4.3 cm pancreatic head mass is seen. There is secondary dilatation of the pancreatic duct, the common bile duct and the intrahepatic ductal system. Recommend further evaluation with CT or MRI (pancreatic mass protocol). 2. The gallbladder is surgically absent. 3. There is mild right hydronephrosis. Abdomen/Pelvis CT 09/25/23 16:21 IMPRESSION: Markedly abnormal exam. There is a mass in the region of the pancreatic head which causes the double duct sign with obstruction of the pancreatic and bile duct. Possibilities should include adenocarcinoma of the pancreas. Cholangiocarcinoma of the distal common bile duct is possible. Primary small bowel malignancy felt much less likely. Tissue diagnosis recommended. Fleischner guidelines were followed. Discharge Plan Discharge Anticipated Discharge Date/Time: 09/28/23 12:38 Patient Disposition: Home, Self-Care Discharge Diagnosis: Biliary obstruction from pancreatic mass Elevated liver enzymes Referrals: Danyell Glass MD [Primary Care Provider] - 1 Week Discharge Medications: Continued furosemide 40 mg tablet 40 mg PO BID@0900,1200 atorvastatin 10 mg tablet 10 mg PO BEDTIME diltiazem HCl 240 mg capsule,extended release 24hr 240 mg PO DAILY metoprolol tartrate 25 mg tablet 37.5 mg PO BID Synjardy XR 25-1,000 mg tablet, IR - ER, biphasic 24hr 1 tab PO DAILY Held Eliquis 5 mg tablet 5 mg PO BID Hold Instructions: Restart on Thursday 09/28 evening Discharge Orders: Discharge Order (Routine); Ordered 09/28/23 Ordered By: Bryan Bowers Diet: Low fat, low cholesterol Activity on Discharge: As tolerated Stand Alone Forms: Patient Portal Discharge page Print Language: Faroese Care Plan Goals: Read below Health Concerns: Read below Plan of Treatment: Read below Assessment: Follow with dr Cortez as outpatient for biopsy result and treatment plan Hold Eliquis until Sunday evening To follow with dr Cruz in 2-3 months for stent replacement
--- NOTE | 2023-09-28 12:43 | MHC.CM.PN ---
DP: PT HAS BEEN MEDICALLY CLEARED FOR DC HOME, NO SERVICES. PT HAS OWN RIDE HOME
--- NOTE | 2023-09-28 14:40 | P.PNGI_ITS ---
Subjective Subjective Date of Service: 09/28/23 Interval History: doing well s/p ercp tolerated PO diet no abdominal pain no nausea or vomiting Critical Care Time (minutes): 0 Physical Exam 2 Vital Signs: Vital Signs: Last Vital Signs Temp 97.4 F 09/28/23 11:34 Pulse 60 09/28/23 11:34 Resp 18 09/28/23 11:34 BP 101/53 L 09/28/23 11:34 Pulse Ox 97 09/28/23 11:34 O2 Del Method Room Air 09/28/23 11:34 O2 Flow Rate 3 09/27/23 16:20 BMI result Body Mass Index 26.2 EXAM: GENERAL: The patient is relaxed--resolving jaundice VITAL SIGNS:see workflow HEENT: icteric sclerae, PERRLA, EOMI. Oropharynx clear. Moist mucous membranes. Conjunctivae appear well perfused. No thyroid mass. CHEST: Chest wall is nontender. HEART: Regular rate and rhythm without murmurs. LUNGS: Clear to auscultation bilaterally. ABDOMEN: Soft, positive bowel sounds, nontender, no organomegaly.no flank tenderness SKIN: No rash, no excessive bruising, petechiae, or purpura. NEUROLOGIC: Cranial nerves II-XII intact without motor/sensory deficit. Psych: normal affect Objective Data Labs 09/26/23 06:17 09/28/23 05:15 Labs: Laboratory Results - last 24 hr 09/27/23 09/27/23 09/27/23 08:28 17:41 20:18 Sodium Potassium Chloride Carbon Dioxide Anion Gap BUN Creatinine Estim Creat Clear Calc Estimated GFR POC Glucose 199 H 259 H Random Glucose Estimat Average Glucose 169 Hemoglobin A1c % 7.5 H Calcium Total Bilirubin Direct Bilirubin AST ALT Alkaline Phosphatase Total Protein Albumin Carcinoembryonic Ag 09/28/23 09/28/23 09/28/23 05:15 06:53 09:29 Sodium 135 Potassium 5.4 H D Chloride 102 Carbon Dioxide 18 L Anion Gap 20 BUN 30 H Creatinine 1.18 Estim Creat Clear Calc 39.9 Estimated GFR 45 POC Glucose 325 H Random Glucose 383 H* Estimat Average Glucose Hemoglobin A1c % Calcium 9.4 Total Bilirubin 6.8 H Direct Bilirubin 5.0 H AST 141 H ALT 307 H Alkaline Phosphatase 1434 H Total Protein 7.2 Albumin 3.1 L Carcinoembryonic Ag 14.60 09/28/23 11:08 Sodium Potassium Chloride Carbon Dioxide Anion Gap BUN Creatinine Estim Creat Clear Calc Estimated GFR POC Glucose 593 H* Random Glucose Estimat Average Glucose Hemoglobin A1c % Calcium Total Bilirubin Direct Bilirubin AST ALT Alkaline Phosphatase Total Protein Albumin Carcinoembryonic Ag Procedures Date of Service Date of Service: 09/28/23 Progress Note: A&P Assessment and plan (1) Biliary obstruction: Status: Acute Assessment and Plan: 1/ Obstructive jaundice s/p ERCP with stent and brushings, bx PLAN: 1/ advance diet, ok to home start eliquis tomorrow, f/u oncology 2/ stent exchange in 3 months or so if not a candidate for surgery --can also consider for metal stent depending on staging Time Spent With Patient Time: Total time managing care of this patient today ____ minutes. Quality Stroke Does the patient have a stroke diagnosis?: No VTE Prior VTE?: No VTE Risk Level:: Medical - moderate - high VTE Device Contraindication: Treatment Not Indicated VTE Drug Contraindication: N/A - Med Ordered
[2023-09-29 10:14] LABS: CA-125 8 U/mL (<35)
[2023-10-01 13:02] LABS: Alpha Fetoprotein 4.3 ng/mL
[2023-10-04 06:29] LABS: Carbohydrate Antigen 19-9 42610 U/mL (<34)
== END 2023-09-28 15:03 | disposition home or self-care (01) | DRG 446 ==
LOC: HO.ED 15:55 → HO.EDOVER 16:01 → HO.S3 09-26 19:12
PROVIDERS: Internal Medicine Gastroenterology; Physician Assistant; Admitting Provider Internal Medicine; Emergency Provider Emergency Medicine; PCP Internal Medicine; Visit Provider Student in an Organized Health Care Education/Training Program
PROC: 0F798DZ Dilation of Common Bile Duct with Intraluminal Device, Via Natural or Artificial Opening Endoscopic (ICD-10-PCS; CPT 43260; principal; 2023-09-27 13:30)
DX: K83.1 Obstruction of bile duct (principal); I48.0 Paroxysmal atrial fibrillation; I50.812 Chronic right heart failure; K86.9 Disease of pancreas, unspecified; E11.51 Type 2 diabetes mellitus with diabetic peripheral angiopathy without gangrene; N18.2 Chronic kidney disease, stage 2 (mild); E11.22 Type 2 diabetes mellitus with diabetic chronic kidney disease; E11.65 Type 2 diabetes mellitus with hyperglycemia; Z79.01 Long term (current) use of anticoagulants; Z79.899 Other long term (current) drug therapy
CPT/HCPCS: 36415; 74177; 76705; 80048; 80053; 80076; 80143; 81001; 82105; 82378; 82947; 83036; 83690; 83735; 85025; 85027; 85610; 86301; 86304; 86704; 86706; 86709; 86803; 87340; 88112; 88305; 88366; 99285; C1769; C2625; J0690; J1100; J1610; J2405; J2704; J3010; Q9967

== ENCOUNTER → 2023-09-25 16:07 | Outpatient (BNV) | payer MEDICARE, OTHER, SELFPAY | PROVIDERS: Admitting Provider Internal Medicine; Emergency Provider Emergency Medicine; PCP Internal Medicine; Visit Provider Internal Medicine | DX: K86.89 Other specified diseases of pancreas (principal); R74.01 Elevation of levels of liver transaminase levels; K83.1 Obstruction of bile duct | CPT/HCPCS: 99223; 99232; 99239 ==

== ENCOUNTER → 2023-09-25 16:07 | Outpatient (BNV) | payer MEDICARE, OTHER, SELFPAY | PROVIDERS: Admitting Provider Internal Medicine; Emergency Provider Emergency Medicine; PCP Internal Medicine; Visit Provider Internal Medicine Gastroenterology | DX: K83.1 Obstruction of bile duct (principal); K86.89 Other specified diseases of pancreas | CPT/HCPCS: 43277; 99223; 99232 ==

== ENCOUNTER → 2023-09-25 16:07 | Outpatient (BNV) | payer MEDICARE, OTHER, SELFPAY | PROVIDERS: Admitting Provider Internal Medicine; Emergency Provider Emergency Medicine; PCP Internal Medicine; Visit Provider Internal Medicine Medical Oncology | DX: K86.89 Other specified diseases of pancreas (principal) | CPT/HCPCS: 99222 ==

== ENCOUNTER 2023-10-02 14:07 | Outpatient (RCR) | payer MEDICARE, OTHER, SELFPAY ==
--- NOTE | ~2023-10-02 | XR_ITS ---
EXAMINATION: XR FOOT, RIGHT CLINICAL INFORMATION: Nonhealing wound. COMPARISON: 09/28/2016. TECHNIQUE: AP, lateral, and oblique views of the right foot. 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 Moderate dorsal and plantar calcaneal spurring. Moderate degenerative changes in the midfoot. Mild degenerative changes in the interphalangeal joints. XR/XR foot RT min 3V IMPRESSION: 1. 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 2. Moderate degenerative changes in the midfoot.
== END 2024-02-01 10:08 | disposition short-term general hospital (02) ==
LOC: HO.WCC 14:07
PROVIDERS: PCP Internal Medicine; Visit Provider Surgery
DX: E11.621 Type 2 diabetes mellitus with foot ulcer (principal); L97.512 Non-pressure chronic ulcer of other part of right foot with fat layer exposed; S91.001D Unspecified open wound, right ankle, subsequent encounter; E11.610 Type 2 diabetes mellitus with diabetic neuropathic arthropathy; R60.9 Edema, unspecified; E11.22 Type 2 diabetes mellitus with diabetic chronic kidney disease; I13.0 Hypertensive heart and chronic kidney disease with heart failure and stage 1 through stage 4 chronic kidney disease, or unspecified chronic kidney disease; N18.2 Chronic kidney disease, stage 2 (mild); I50.9 Heart failure, unspecified; C25.9 Malignant neoplasm of pancreas, unspecified
CPT/HCPCS: 11042; 11044; 73630

== ENCOUNTER → 2023-10-09 11:40 | Outpatient (BNV) | payer MEDICARE, OTHER, SELFPAY | PROVIDERS: PCP Internal Medicine; Visit Provider Internal Medicine Medical Oncology | DX: C25.9 Malignant neoplasm of pancreas, unspecified (principal) | CPT/HCPCS: 99213; 99214 ==

== ENCOUNTER 2023-10-16 15:06 | Inpatient (IN) | payer MEDICARE, OTHER, SELFPAY ==
--- NOTE | ~2023-10-16 | XR_ITS ---
EXAMINATION: XR CHEST CLINICAL INFORMATION: Diabetic ketoacidosis. COMPARISON: Chest radiographs dated 01/27/2017. TECHNIQUE: Frontal view of the chest was obtained. FINDINGS: The heart, great vessels, pulmonary vasculature and mediastinum are normal. The lungs show no focal infiltrate, effusion or pneumothorax. There is mild left base linear scar/subsegmental atelectasis. No acute osseous abnormality is seen. XR/XR chest 1V IMPRESSION: 1. No focal infiltrate or congestive heart failure is seen. 2. There is mild left base linear scar/subsegmental atelectasis.
--- NOTE | ~2023-10-16 | CT_ITS ---
EXAMINATION: CT HEAD WITHOUT CONTRAST CLINICAL INFORMATION: Fall head strike on eliquis COMPARISON: None TECHNIQUE: Contiguous axial imaging was performed from the skull base to vertex without intravenous administration of contrast. This CT examination was performed using dose optimization techniques as appropriate, variously including the following: *Automated exposure control *Adjustment of mA and/or kV according to patient size (this includes techniques or standardized protocols for targeted exams where dose is matched to indication/reason for exam; i.e. extremities or head) *Use of iterative reconstruction technique DLP: 800 mGy-cm FINDINGS: There is no evidence of acute intracranial hemorrhage or territorial infarction. Chronic white matter small vessel ischemic changes. Cerebral atrophy. No abnormal mass effect or midline shift is seen. [place] to white matter differentiation is well preserved. No extra-axial fluid collections are identified. The ventricles are normal in size. There is no abnormal attenuation within the brain parenchyma. The osseous structures and soft tissues are normal. The mastoid air cells and visualized portions of the paranasal sinuses are well aerated. CT/CT cervical spine wo IV con IMPRESSION: 1. No acute intracranial pathology. 2. Chronic white matter small vessel ischemic changes. EXAMINATION: Noncontrast CT scan of the cervical spine. INDICATION: Fall. COMPARISON: None. TECHNIQUE: Helical, multidetector axial images were obtained from the occiput to the upper thorax. Coronal and sagittal reformats of the cervical spine were provided for interpretation. DLP: 800 mGy-cm FINDINGS: No acute fractures or dislocations of the cervical spine are seen. Straightening of the normal cervical curvature. Multilevel degenerative changes. Sclerotic focus of C4 vertebral body potentially representing a bone island. Anatomic alignment and positioning of the vertebral bodies and posterior elements is noted. The atlantoaxial joint and craniovertebral articulations are normal without evidence of subluxation. There is no prevertebral soft tissue swelling. Biapical pleural parenchymal scarring probably. Calcifications of the left thyroid lobe. IMPRESSION: 1. No acute visible fracture or dislocation. 2. Straightening of the normal cervical curvature. 3. Multilevel degenerative changes.
[2023-10-16 16:32] VITALS: BP 119/65; PULSE 99; RESP 16; TEMP 36.1; O2SAT 97; BMI 24.1
--- NOTE | 2023-10-16 16:35 | ED_ITS ---
HPI - Recheck/Abnormal Lab/Rx General Chief Complaint: General Medical Stated Complaint: High blood sugar - sent by Time Seen by Provider: 10/16/23 17:06 Source: patient and family Mode of arrival: ambulatory Limitations: no limitations History of Present Illness HPI narrative: A 73-year-old female brought in from the wound clinic for high blood sugar patient with history of type 2 diabetes was just prescribed by PCP insulin that the patient has not started yet found to have high blood sugar of 600, patient also woke up this morning found herself on the ground do not recall how she fell, patient stated that she must have fallen last night while going to the bathroom, complaining of slight headache and neck pain. Patient with history of atrial fibrillation on Eliquis Paroxysmal, CHF, CKD, dm T2, PVD, obstructive jaundice with transaminitis secondary to possibly pancreatic mass versus cholangiocarcinoma Biliary brushing cytology show negative for cells, patient stated that she still have another procedure coming up in 10 days at [facility]. Related Data Home Medications ?Medication ?Instructions ?Recorded ?Confirmed apixaban 5 mg tablet (Eliquis) 5 mg PO BID 09/25/23 10/16/23 atorvastatin 10 mg tablet 10 mg PO BEDTIME 09/25/23 10/16/23 diltiazem HCl 240 mg 240 mg PO DAILY 09/25/23 10/16/23 capsule,extended release 24 hr empagliflozin 25 mg-metformin ER 1 tab PO DAILY 09/25/23 10/16/23 1,000 mg tablet,extended release 24hr (Synjardy XR) furosemide 40 mg tablet 40 mg PO BID@0900,1200 09/25/23 10/16/23 metoprolol tartrate 25 mg tablet 37.5 mg PO BID 09/25/23 10/16/23 insulin glargine 100 unit/mL (3 10 unit subcut BEDTIME 10/16/23 10/16/23 mL) subcutaneous pen (Lantus Solostar U-100 Insulin) Allergies Allergy/AdvReac Type Severity Reaction Status Date / Time doxycycline Allergy Rash Verified 10/16/23 16:37 Review of Systems 2 Review of Systems: All other systems are reviewed and are negative Constitutional: Reports as per HPI and Reports no additional constitutional complaints Eyes: Reports as per HPI and Reports no additional eye complaints Reports system reviewed and no additional complaints, except as documented Cardiovascular: Reports as per HPI and Reports no additional cardiovascular complaints Respiratory: Reports as per HPI and Reports no additional respiratory complaints Gastrointestinal: Reports as per HPI and Reports no additional gastrointestinal complaints Genitourinary: Reports no additional female genitourinary complaints Musculoskeletal: Reports no additional musculoskeletal complaints Skin/Breast: Reports system reviewed and no additional complaints, except as docu Psychiatric: Reports no additional psychiatric complaints Endocrine: Reports no additional endocrine complaints Hematologic/Lymphatic: Reports no additional hematologic/lymphatic complaints Allergic/Immunologic: Reports no additional allergic/immunologic complaints Reports system reviewed and no additional complaints, except as documented and Reports Abnormal speech present FORMERLY [facility] Past Medical History Medical History Pancreatic mass CHF (congestive heart failure) CKD (chronic kidney disease) Afib Family History Family History Father Prostate cancer Sister Breast cancer Social History Social History Household Members: None Household Members Other:: Son lives upstairs (multi-family home) Housing: House Do you presently have visiting nurse or other home services: No Alcohol intake: never Patient Tobacco Use Status: Never used Tobacco e-Cigarette/Vaping Use: Never Used Second Hand Smoke Exposure: No Advance Directives: No Advance Directives Information Provided: No Do you have a plan to hurt others: No Plan service: No Current occupational status: retired Physical Exam 2 Vital Signs: Vital Signs: Last Vital Signs Temp 97.8 F 10/16/23 17:34 Pulse 97 10/16/23 19:42 Resp 20 10/16/23 19:42 BP 114/56 L 10/16/23 19:42 Pulse Ox 100 10/16/23 19:42 O2 Del Method Room Air 10/16/23 19:42 BMI result Body Mass Index 24.1 Vital signs have been reviewed and appear to be correct. Blood pressure elevated. Heart rate normal. Respiratory rate normal. Temperature normal. Oxygen saturation normal. Appearance: Alert. Oriented X3. No acute distress. Head: Normal external exam. Normocephalic. Atraumatic. No Dixon signs noted. No raccoon eyes noted Eyes: PERRLA. EOMI. Conjunctiva and sclera normal. Eyelids normal. ENT: TM's Normal. Pharynx normal. Uvula midline. Moist mucous membranes. No trismus noted. No drooling noted. No muffled voice noted. Neck: Normal inspection. Neck supple. FROM. No adenopathy. Thyroid Normal. No meningeal signs. No neck mass noted. CVS: Normal heart rate and rhythm. Heart sound normal. No murmurs noted. Pulses normal throughout. Respiratory: No respiratory distress. Painless inspiration. Breath sounds normal. No wheezes/rales/rhonchi noted. Chest nontender. No accessory muscle usage noted or decreased air movement noted. Abdomen: Soft and nontender. Bowel sounds normal in all 4 quadrants. No distention noted. No organomegaly noted. No visible injury noted. Back: No CVA tenderness. Full range of motion noted. Skin: Skin warm and dry. Normal skin color. Normal skin turgor. No rashes/lesions/lacerations noted. Extremities: No lower extremity edema. Extremities exhibit normal range of motion. Extremities nontender. Neuro: Oriented X 3. Cranial nerve exam: II-XII are grossly intact No motor deficit. No sensory deficit. Reflexes normal. Course Course Course Narrative: This is a Rapid Medical Examination (RME) performed by Richie Long PA-C in triage. Full HPI, ROS, assessment and treatment plan per primary provider in the Main ED. 73 yo female with history of diabetes, afib on eliquis, CHF, pancreas tumor presenting with elevated glucose >600 at [facility] today. feels weak and fatigued. had a fall last night and hit her head, does not recall how she hit her head. no LOC. Plan: labs, CT head/c-spine Reevaluation(s) Reevaluation #1: 73-year-old female in process for workup of pancreatic mass, type 2 diabetes has a prescription for insulin that she has not started yet, presented with hyperglycemia and found to be in DKA, pH 7.37, anion gap of 24 and bicarb of 18 blood sugar was 771, fluids was started and insulin drip at 6 units/hour was started in the emergency department. Case discussed with Dr. Jacob to continue the patient on insulin drip currently there is no ICU bed but a potential bed will be available soon, the plan is continue with insulin drip repeat labs at 22:00 if patient's lab improved she can be downgraded to regular floor for further management or hopefully the ICU bed will be available. patient also had possible syncopal episode during the night that the patient can not provide history of it. The case discussed with both Dr. Jacob and Dr. Kovacs and both agreed on the plan, will signed out the patient to . Time: 20:16 Medications Administered Generic Name Dose Route Start Last Admin Trade Name Freq PRN Reason Stop Dose Admin Insulin Human Regular 100 unit in 100 mls @ 6 mls/hr 10/16/23 19:00 10/16/23 19:22 Myxredlin IVCONT 6 unit/hr .[id number] ZENY 6 mls/hr Administration Protocol 6 UNIT/HR Discontinued Medications Generic Name Dose Route Start Last Admin Trade Name Freq PRN Reason Stop Dose Admin Sodium Chloride 1,000 mls @ 999 mls/hr 10/16/23 17:00 10/16/23 18:01 Ns IVCONT 10/16/23 18:00 999 mls/hr .Q1H1M ZENY Administration Sodium Chloride 1,000 mls @ 999 mls/hr 10/16/23 17:06 10/16/23 19:10 Ns IV 10/16/23 18:06 999 mls/hr .Q1H1M ONE Administration Insulin Human Regular 10 unit 10/16/23 17:06 10/16/23 18:05 Insulin Regular, Human 100 Unit/Ml 3 Ml Vial IVPUSH 10/16/23 17:07 10 unit ONCE ONE Administration Medical Decision Making Differential Diagnosis Differential Diagnoses: The differential diagnosis associated with the presentation includes ( syncope, rhabdomyolysis, DKA, electrolyte derangement, severe anemia, ACS, UTI, Intracranial bleed, cervical spine fracture or subluxation.) Admission/Observation Consideration of admission/observation: Escalation of care including admission/observation considered Consult Healthcare Provider Management of the patient was discussed with: Hospitalist (Dr. Kovacs) and Social Worker Assistant (Dr. Jacob) Lab Data MDM Lab Attestation statement: I reviewed the patient's lab results. 10/16/23 17:54 10/16/23 17:54 Labs: Lab Results 10/16/23 10/16/23 10/16/23 Range/Units 16:51 17:54 17:57 WBC 4.5 L (4.8-10.8) X10*3/uL RBC 3.73 L (4.20-5.50) X10*6/uL Hgb 11.6 L (12.0-16.0) g/dl Hct 34.9 L (37.0-47.0) % MCV 93.6 (80.0-98.0) fL MCH 31.1 (27.0-33.0) pg MCHC 33.2 (31.0-35.0) g/dl RDW 19.3 H (11.0-16.0) % Plt Count 170 D (160-400) X10*3/uL MPV 10.4 (9.4-12.3) fL Immature Gran % (Auto) 0.9 H (0.0-0.4) % Neut % (Auto) 91.3 H (45-73) % Lymph % (Auto) 2.4 L (20-40) % Bethel % (Auto) 2.0 (2-11) % Eos % (Auto) 2.7 (0-4) % Baso % (Auto) 0.7 (0-2) % Lymph # (Auto) 0.1 L (1.2-4.9) X10*3/uL Bethel # (Auto) 0.1 (0.1-1.2) X10*3/uL Eos # (Auto) 0.1 (0.0-0.4) X10*3/uL Baso # (Auto) 0.0 (0.0-0.2) X10*3/uL Abs Immat Gran (auto) 0.04 H (0.00-0.03) X10*3/uL Absolute Neuts (auto) 4.1 (2.0-8.3) x10*3/uL Absolute Nucleated RBC 0.000 (0.0-0.012) X10*3/uL Nucleated RBC % (auto) 0.0 (0.0-0.2) /100WBC Smear Tech's Comments VERIFIED VBG pH 7.37 (7.32-7.43) VBG pCO2 32 mmHg VBG pO2 54 mmHg VBG HCO3 19 L (22-26) mmol/L VBG O2 Saturation 83.0 % VBG Base Excess -4.6 mmol/L Sodium 131 L (135-145) mmol/L Potassium 5.1 (3.3-5.1) mmol/L Chloride 94 L (96-108) mmol/L Carbon Dioxide 18 L (22-29) mmol/L Anion Gap 24 H (12-20) BUN 36 H (9-16) mg/dL Creatinine 2.14 H (0.5-1.4) mg/dL Estim Creat Clear Calc 19.9 Estimated GFR 23 POC Glucose > 600 H* (60-115) mg/dL Random Glucose 771 H* (60-115) mg/dL Calcium 9.7 (8.4-10.2) mg/dL Magnesium 2.5 (1.6-2.6) mg/dL Total Bilirubin 2.0 H (0.0-1.0) mg/dL Direct Bilirubin 1.3 H (0.0-0.5) mg/dL AST 102 H (5-31) U/L ALT 73 H (0-31) U/L Alkaline Phosphatase 217 H (39-117) U/L Total Creatine Kinase 247 H (26-140) U/L Troponin I High Sens 19.5 H (<3.5-17.0) ng/L Total Protein 7.0 (6.5-8.0) g/dL Albumin 3.5 (3.5-5.0) g/dL Beta-Hydroxybutyrate 4.73 H (0.02-0.27) mmol/L 10/16/23 10/16/23 Range/Units 18:00 19:16 WBC (4.8-10.8) X10*3/uL RBC (4.20-5.50) X10*6/uL Hgb (12.0-16.0) g/dl Hct (37.0-47.0) % MCV (80.0-98.0) fL MCH (27.0-33.0) pg MCHC (31.0-35.0) g/dl RDW (11.0-16.0) % Plt Count (160-400) X10*3/uL MPV (9.4-12.3) fL Immature Gran % (Auto) (0.0-0.4) % Neut % (Auto) (45-73) % Lymph % (Auto) (20-40) % Bethel % (Auto) (2-11) % Eos % (Auto) (0-4) % Baso % (Auto) (0-2) % Lymph # (Auto) (1.2-4.9) X10*3/uL Bethel # (Auto) (0.1-1.2) X10*3/uL Eos # (Auto) (0.0-0.4) X10*3/uL Baso # (Auto) (0.0-0.2) X10*3/uL Abs Immat Gran (auto) (0.00-0.03) X10*3/uL Absolute Neuts (auto) (2.0-8.3) x10*3/uL Absolute Nucleated RBC (0.0-0.012) X10*3/uL Nucleated RBC % (auto) (0.0-0.2) /100WBC Smear Tech's Comments VBG pH (7.32-7.43) VBG pCO2 mmHg VBG pO2 mmHg VBG HCO3 (22-26) mmol/L VBG O2 Saturation % VBG Base Excess mmol/L Sodium (135-145) mmol/L Potassium (3.3-5.1) mmol/L Chloride (96-108) mmol/L Carbon Dioxide (22-29) mmol/L Anion Gap (12-20) BUN (9-16) mg/dL Creatinine (0.5-1.4) mg/dL Estim Creat Clear Calc Estimated GFR POC Glucose 585 H* 534 H* (60-115) mg/dL Random Glucose (60-115) mg/dL Calcium (8.4-10.2) mg/dL Magnesium (1.6-2.6) mg/dL Total Bilirubin (0.0-1.0) mg/dL Direct Bilirubin (0.0-0.5) mg/dL AST (5-31) U/L ALT (0-31) U/L Alkaline Phosphatase (39-117) U/L Total Creatine Kinase (26-140) U/L Troponin I High Sens (<3.5-17.0) ng/L Total Protein (6.5-8.0) g/dL Albumin (3.5-5.0) g/dL Beta-Hydroxybutyrate (0.02-0.27) mmol/L Independent Interpretation I performed an independent interpretation of an: CT Scan ( Head/cervical spine: No acute intracranial pathology or cervical subluxation.) Radiology Impression Discussion of test interpretation with radiology: I have reviewed the radiologist's reading. Chronic Conditions Patient?s care impacted by: Diabetes Critical Care Time Critical Care Time Critical Care Time: Yes Total Critical Care Time: 60 Attestation: The patient was critically ill with a high probability of imminent or life- threatening deterioration. I spent greater than 30 minutes of discontinuous time evaluating the patient, delivering critical care at the bedside, discussing evaluating data with consultants. Critical care time does not include time spent performing separately billable procedures or teaching. Time spent performing critical care was 60 minutes. Discharge Plan Discharge Clinical Impression: DKA (diabetic ketoacidosis), Syncope Patient Disposition: Admitted As Inpatient Prescriptions: No Action furosemide 40 mg tablet 40 mg PO BID@0900,1200 atorvastatin 10 mg tablet 10 mg PO BEDTIME diltiazem HCl 240 mg capsule,extended release 24hr 240 mg PO DAILY metoprolol tartrate 25 mg tablet 37.5 mg PO BID Eliquis 5 mg tablet 5 mg PO BID Hold Instructions: Restart on Thursday 09/28 evening Synjardy XR 25-1,000 mg tablet, IR - ER, biphasic 24hr 1 tab PO DAILY insulin glargine [Lantus Solostar U-100 Insulin] 100 unit/mL (3 mL) insulin pen 10 unit subcut BEDTIME Print Language: Luxembourger
--- NOTE | 2023-10-16 16:37 | ECG_ITS ---
Test Reason : HYPERGLYCEMIA Blood Pressure : / mmHG Vent. Rate : 101 BPM Atrial Rate : 101 BPM P-R Int : 138 ms QRS Dur : 122 ms QT Int : 376 ms P-R-T Axes : 068 026 027 degrees QTc Int : 487 ms Sinus tachycardia Right bundle branch block Abnormal ECG When compared with ECG of 20-FEB-2023 16:28, Vent. rate has increased BY 36 BPM Referred By: Monika Long Electronically Signed By:Cj Rider
[2023-10-16 16:55] LABS: Glucose, Whole Blood > 600 mg/dL (60-115)
[2023-10-16 17:34] VITALS: BP 110/52; PULSE 98; RESP 14; TEMP 36.6; O2SAT 99
[2023-10-16] MEDS: 0.9 % Sodium Chloride 1,000 ML 999 ML IVCONT (18:01)
[2023-10-16 18:04] LABS: Basophils Percent Auto 0.7 % (0-2); Eosinophils Absolute Auto 0.1 X10*3/uL (0.0-0.4); Eosinophils Percent Auto 2.7 % (0-4); Hematocrit 34.9 % (37.0-47.0); Hemoglobin 11.6 g/dl (12.0-16.0); Imm Gran Abs Auto 0.04 X10*3/uL (0.00-0.03); Imm Gran Pct Auto 0.9 % (0.0-0.4); Lymphocytes Absolute Auto 0.1 X10*3/uL (1.2-4.9); Lymphocytes Percent Auto 2.4 % (20-40); MANUAL DIFF FLAG SCAN; Mean Corpuscular HGB Conc 33.2 g/dl (31.0-35.0); Mean Corpuscular Hemoglobin 31.1 pg (27.0-33.0); Mean Corpuscular Volume 93.6 fL (80.0-98.0); Mean Platelet Volume 10.4 fL (9.4-12.3); Monocytes Absolute Auto 0.1 X10*3/uL (0.1-1.2); Neutrophils Absolute Auto 4.1 x10*3/uL (2.0-8.3); Neutrophils Percent Auto 91.3 % (45-73); Platelet Count 170 X10*3/uL (160-400); Red Blood Count 3.73 X10*6/uL (4.20-5.50); Red Cell Distribution Width 19.3 % (11.0-16.0); SCAN SMEAR FLAG 1; White Blood Count 4.5 X10*3/uL (4.8-10.8)
[2023-10-16 18:04] LABS: VBG Base Excess -4.6 mmol/L; VBG HCO3 19 mmol/L (22-26); VBG pCO2 32 mmHg; VBG pH 7.37 (7.32-7.43); VBG pO2 54 mmHg
[2023-10-16 18:05] LABS: Venous Blood Gas Refer to POC result
[2023-10-16] MEDS: Insulin Regular, Human 100 UNIT/ML 3 ML VIAL 10 UNIT IVPUSH (18:05)
--- NOTE | 2023-10-16 18:14 | PC.NURSE ---
IV established, labs obtained and sent. medicated per the MAR w/ fluids infusing. awaiting ct scan results at this time. call verdugo within reach.
[2023-10-16 18:16] LABS: Glucose, Whole Blood 585 mg/dL (60-115)
[2023-10-16 18:24] LABS: Beta-Hydroxybutyrate 4.73 mmol/L (0.02-0.27)
[2023-10-16 18:26] LABS: SLIDE REVIEW VERIFIED
[2023-10-16 18:32] LABS: Troponin-I High Sensitivity 19.5 ng/L (<3.5-17.0)
[2023-10-16 18:40] LABS: Alanine Aminotransferase 73 U/L (0-31); Albumin Level 3.5 g/dL (3.5-5.0); Alkaline Phosphatase 217 U/L (39-117); Anion Gap 24 (12-20); Aspartate Amino Transferase 102 U/L (5-31); Bilirubin Direct 1.3 mg/dL (0.0-0.5); Blood Urea Nitrogen 36 mg/dL (9-16); Calcium 9.7 mg/dL (8.4-10.2); Carbon Dioxide 18 mmol/L (22-29); Chloride 94 mmol/L (96-108); Creatinine Clr Calc Pharmacy 19.9; Estimated Glomerular Filt Rate 23; Glucose Random 771 mg/dL (60-115); Magnesium 2.5 mg/dL (1.6-2.6); Potassium 5.1 mmol/L (3.3-5.1); Sodium 131 mmol/L (135-145)
--- NOTE | 2023-10-16 18:59 | PC.NURSE ---
Assumed care of pt. Pt lying on stretcher, daughter in law present at bedside. Pt with generalized weakness, but otherwise no complaints. Notified MD Macias of labs concerning for DKA, pending new orders.
[2023-10-16] MEDS: 0.9 % Sodium Chloride 1,000 ML 999 ML IV (19:10)
[2023-10-16 19:20] LABS: Glucose, Whole Blood 534 mg/dL (60-115)
[2023-10-16] MEDS: Insulin Regular/NS 100 UNIT/100 ML PLAST..BAG 6 UNIT IVCONT (19:22)
[2023-10-16 19:42] VITALS: BP 114/56; PULSE 97; RESP 20; O2SAT 100
--- NOTE | 2023-10-16 20:16 | PHA.MEDREC ---
Pharmacy Consult ? Medication Reconciliation Pharmacy has completed the medication reconciliation. Patient had list of medications that match claim history. Patient report the Lantus was picked up today but patient has not started yet. Yoselin Wilder, bettyD
[2023-10-16 20:40] LABS: Glucose, Whole Blood 438 mg/dL (60-115)
[2023-10-16 22:00] VITALS: BP 121/58; PULSE 104; RESP 20; O2SAT 100
[2023-10-16 22:03] LABS: Glucose, Whole Blood 344 mg/dL (60-115)
[2023-10-16 22:26] LABS: Appearance Urine Clear; Color Urine Yellow; Glucose Urine UA >=1000 mg/dL (Negative); Leukocyte Esterase Urine Negative (Negative); Nitrite Urine Negative (Negative); PH 5.5 (5.0-9.0); Specific Gravity - Urine >= 1.030 (1.005-1.025); UMIC TRIGGER UACC YES; Urine Blood Small (1+) (Negative); Urine Ketones 15 mg/dL (Negative); Urine Protein 30 (1+) mg/dL (Neg-Trace)
[2023-10-16 22:42] LABS: Alanine Aminotransferase 70 U/L (0-31); Alkaline Phosphatase 187 U/L (39-117); Anion Gap 17 (12-20); Aspartate Amino Transferase 94 U/L (5-31); Bilirubin Total 1.6 mg/dL (0.0-1.0); Blood Urea Nitrogen 30 mg/dL (9-16); Calcium 9.1 mg/dL (8.4-10.2); Carbon Dioxide 22 mmol/L (22-29); Chloride 105 mmol/L (96-108); Creatinine Clr Calc Pharmacy 30.4; Estimated Glomerular Filt Rate 37; Glucose Fasting 262 mg/dL (60-99); Potassium 3.9 mmol/L (3.3-5.1); Sodium 140 mmol/L (135-145)
[2023-10-16 22:48] LABS: Troponin-I High Sensitivity 18.9 ng/L (<3.5-17.0)
[2023-10-16 22:51] LABS: Bacteria Urine 2+ (None Seen); Hyaline Casts Urine 0-2 /LPF (0-2); Squamous Epithelial Cell Urine 0-2 /HPF (0-2); UACC Culture Trigger YES
[2023-10-16] MEDS: Insulin Glargine,Hum.rec.anlog 100 UNIT/ML 10 ML VIAL 12 UNIT SUBCUT (22:57)
--- NOTE | 2023-10-16 23:26 | PM.IMHP ---
History of Present Illness Date of Service: 10/16/23 Chief Complaint: Elevated blood sugar This is a 73-year-old female with pertinent history of insulin-dependent diabetes mellitus, paroxysmal atrial fibrillation on Eliquis, chronic right-sided heart failure, chronic kidney disease stage 2, peripheral vascular disease who presents to the emergency department for evaluation of elevated blood sugars. Patient states [facility] as her blood sugar was found to be high. She was prescribed insulin by PCP but patient has not started it yet. Patient woke up on the ground this morning, states she must have passed out last night while going to the bathroom. Does not remember if she had dizziness or lightheadedness prior to passing out. No chest discomfort or palpitations. No rhythmic jerking movement of extremities. Patient does admit that she has been thirsty and peeing more often over the last few days. No nausea, vomiting or diarrhea. No fever, chills, chest discomfort, shortness of breath, abdominal pain, changes in bowel habits. Of note, patient was recently admitted on 09/25/2023 and discharged on 09/28/2023 with obstructive painless jaundice. Imaging with pancreatic mass. ERCP was done with stent placement by Gastroenterology and biopsy was taken. Patient followed up with Oncology and biopsy brushings noted to be negative. Patient is scheduled for outpatient follow-up with [facility] for endoscopic ultrasound guided biopsy and Oncology outpatient follow-up for systemic chemotherapy. In the emergency department, patient was found to be in DKA and initiated on IV insulin. Gap was closed and hospital medicine team was contacted. Review of Systems Constitutional: Constitutional: Reports fatigue and Reports weakness Cardiovascular: Cardiovascular: Reports no additional cardiovascular complaints and Reports syncope Respiratory: Respiratory: Reports no additional respiratory complaints Gastrointestinal: Gastrointestinal: Reports no additional gastrointestinal complaints Genitourinary: Genitourinary: Reports no additional female genitourinary complaints Neurologic: Reports syncope and Reports weakness Endocrine: Endocrine: Reports fatigue, Reports polydipsia and Reports polyuria [facility] Medical History Pancreatic mass CHF (congestive heart failure) CKD (chronic kidney disease) Afib Family History Father Prostate cancer Sister Breast cancer Social History Household Members: None Household Members Other:: Son lives upstairs (multi-family home) Housing: House Do you presently have visiting nurse or other home services: No Alcohol intake: never Patient Tobacco Use Status: Never used Tobacco e-Cigarette/Vaping Use: Never Used Second Hand Smoke Exposure: No Advance Directives: No Advance Directives Information Provided: No Do you have a plan to hurt others: No Plan service: No Current occupational status: retired Meds Allergies Allergy/AdvReac Type Severity Reaction Status Date / Time doxycycline Allergy Rash Verified 10/16/23 16:37 Active Medications: Current Medications Insulin Human Regular (Myxredlin) 100 unit in 100 mls @ 6 mls/hr IVCONT .[id number] [facility]; Protocol Last Titration: 10/16/23 23:16 Dose: 2 unit/hr, 2 mls/hr Dextrose (D10) 250 mls @ 750 mls/hr IV Q30M PRN PRN Reason: BG <70 Home Medications ?Medication ?Instructions ?Recorded ?Confirmed ?Last Taken ?Type apixaban 5 mg tablet (Eliquis) 5 mg PO BID 09/25/23 10/16/23 10/16/23 History atorvastatin 10 mg tablet 10 mg PO BEDTIME 09/25/23 10/16/23 10/15/23 History diltiazem HCl 240 mg 240 mg PO DAILY 09/25/23 10/16/23 10/16/23 History capsule,extended release 24 hr empagliflozin 25 mg-metformin ER 1 tab PO DAILY 09/25/23 10/16/23 10/16/23 History 1,000 mg tablet,extended release 24hr (Synjardy XR) furosemide 40 mg tablet 40 mg PO BID@0900,1200 09/25/23 10/16/23 10/16/23 History metoprolol tartrate 25 mg tablet 37.5 mg PO BID 09/25/23 10/16/23 10/16/23 History insulin glargine 100 unit/mL (3 10 unit subcut BEDTIME 10/16/23 10/16/23 Unknown History mL) subcutaneous pen (Lantus Solostar U-100 Insulin) Physical Exam Vital Signs and Narrative: Vital Signs: Last Vital Signs Temp 97.8 F 10/16/23 17:34 Pulse 104 H 10/16/23 22:00 Resp 20 10/16/23 22:00 BP 121/58 L 10/16/23 22:00 Pulse Ox 100 10/16/23 22:00 O2 Del Method Room Air 10/16/23 22:00 BMI result Body Mass Index 24.1 Elderly female lying in bed in no distress Neck supple, no JVD Regular rate and rhythm, S1-S2 heard Regular breath sounds bilaterally, no wheezing or crackles appreciated Abdomen soft nontender, no guarding, no rigidity Patient is awake, alert and oriented to self, place, time and person ; no focal motor deficit Psych: Normal mood Nonhealing wound on the plantar aspect of right foot, no signs of infection Results Labs 10/16/23 17:54 10/16/23 22:24 Labs: Laboratory Results - last 24 hr 10/16/23 10/16/23 10/16/23 16:51 17:54 17:57 MCV 93.6 MCH 31.1 MCHC 33.2 RDW 19.3 H Plt Count 170 D MPV 10.4 Immature Gran % (Auto) 0.9 H Neut % (Auto) 91.3 H Lymph % (Auto) 2.4 L [place] % (Auto) 2.0 Eos % (Auto) 2.7 Baso % (Auto) 0.7 Lymph # (Auto) 0.1 L [place] # (Auto) 0.1 Eos # (Auto) 0.1 Baso # (Auto) 0.0 Abs Immat Gran (auto) 0.04 H Absolute Neuts (auto) 4.1 Absolute Nucleated RBC 0.000 Nucleated RBC % (auto) 0.0 Smear Tech's Comments VERIFIED VBG pH 7.37 VBG pCO2 32 VBG pO2 54 VBG HCO3 19 L VBG O2 Saturation 83.0 VBG Base Excess -4.6 Anion Gap 24 H Estim Creat Clear Calc 19.9 Estimated GFR 23 POC Glucose > 600 H* Random Glucose 771 H* Fasting Glucose Calcium 9.7 Magnesium 2.5 Total Bilirubin 2.0 H Direct Bilirubin 1.3 H AST 102 H ALT 73 H Alkaline Phosphatase 217 H Total Creatine Kinase 247 H Troponin I High Sens 19.5 H Total Protein 7.0 Albumin 3.5 Beta-Hydroxybutyrate 4.73 H Urine Color Urine Appearance Urine pH Ur Specific [place] Urine Protein Urine Glucose (UA) Urine Ketones Urine Blood Urine Nitrite Ur Leukocyte Esterase Urine RBC Urine WBC Ur Squamous Epith Cells Urine Bacteria Hyaline Casts Urine Yeast 10/16/23 10/16/23 10/16/23 18:00 19:16 20:36 MCV MCH MCHC RDW Plt Count MPV Immature Gran % (Auto) Neut % (Auto) Lymph % (Auto) [place] % (Auto) Eos % (Auto) Baso % (Auto) Lymph # (Auto) [place] # (Auto) Eos # (Auto) Baso # (Auto) Abs Immat Gran (auto) Absolute Neuts (auto) Absolute Nucleated RBC Nucleated RBC % (auto) Smear Tech's Comments VBG pH VBG pCO2 VBG pO2 VBG HCO3 VBG O2 Saturation VBG Base Excess Anion Gap Estim Creat Clear Calc Estimated GFR POC Glucose 585 H* 534 H* 438 H* Random Glucose Fasting Glucose Calcium Magnesium Total Bilirubin Direct Bilirubin AST ALT Alkaline Phosphatase Total Creatine Kinase Troponin I High Sens Total Protein Albumin Beta-Hydroxybutyrate Urine Color Urine Appearance Urine pH Ur Specific [place] Urine Protein Urine Glucose (UA) Urine Ketones Urine Blood Urine Nitrite Ur Leukocyte Esterase Urine RBC Urine WBC Ur Squamous Epith Cells Urine Bacteria Hyaline Casts Urine Yeast 10/16/23 10/16/23 10/16/23 21:42 22:18 22:24 MCV MCH MCHC RDW Plt Count MPV Immature Gran % (Auto) Neut % (Auto) Lymph % (Auto) [place] % (Auto) Eos % (Auto) Baso % (Auto) Lymph # (Auto) [place] # (Auto) Eos # (Auto) Baso # (Auto) Abs Immat Gran (auto) Absolute Neuts (auto) Absolute Nucleated RBC Nucleated RBC % (auto) Smear Tech's Comments VBG pH VBG pCO2 VBG pO2 VBG HCO3 VBG O2 Saturation VBG Base Excess Anion Gap 17 Estim Creat Clear Calc 30.4 Estimated GFR 37 POC Glucose 344 H Random Glucose Fasting Glucose 262 H Calcium 9.1 D Magnesium Total Bilirubin 1.6 H Direct Bilirubin AST 94 H ALT 70 H Alkaline Phosphatase 187 H Total Creatine Kinase Troponin I High Sens 18.9 H Total Protein 6.0 L Albumin 3.0 L Beta-Hydroxybutyrate Urine Color Yellow Urine Appearance Clear Urine pH 5.5 Ur Specific [place] >= 1.030 H Urine Protein 30 (1+) H Urine Glucose (UA) >=1000 H Urine Ketones 15 Urine Blood Small (1+) H Urine Nitrite Negative Ur Leukocyte Esterase Negative Urine RBC 11-20 H Urine WBC 11-20 H Ur Squamous Epith Cells 0-2 Urine Bacteria 2+ Hyaline Casts 0-2 Urine Yeast Present Imaging Radiologist's Impressions: Impressions Cervical Spine CT 10/16/23 17:50 IMPRESSION: 1. No acute intracranial pathology. 2. Chronic white matter small vessel ischemic changes. EXAMINATION: Noncontrast CT scan of the cervical spine. INDICATION: Fall. COMPARISON: None. TECHNIQUE: Helical, multidetector axial images were obtained from the occiput to the upper thorax. Coronal and sagittal reformats of the cervical spine were provided for interpretation. DLP: 800 mGy-cm FINDINGS: No acute fractures or dislocations of the cervical spine are seen. Straightening of the normal cervical curvature. Multilevel degenerative changes. Sclerotic focus of C4 vertebral body potentially representing a bone island. Anatomic alignment and positioning of the vertebral bodies and posterior elements is noted. The atlantoaxial joint and craniovertebral articulations are normal without evidence of subluxation. There is no prevertebral soft tissue swelling. Biapical pleural parenchymal scarring probably. Calcifications of the left thyroid lobe. IMPRESSION: 1. No acute visible fracture or dislocation. 2. Straightening of the normal cervical curvature. 3. Multilevel degenerative changes. Head CT 10/16/23 17:50 IMPRESSION: 1. No acute intracranial pathology. 2. Chronic white matter small vessel ischemic changes. EXAMINATION: Noncontrast CT scan of the cervical spine. INDICATION: Fall. COMPARISON: None. TECHNIQUE: Helical, multidetector axial images were obtained from the occiput to the upper thorax. Coronal and sagittal reformats of the cervical spine were provided for interpretation. DLP: 800 mGy-cm FINDINGS: No acute fractures or dislocations of the cervical spine are seen. Straightening of the normal cervical curvature. Multilevel degenerative changes. Sclerotic focus of C4 vertebral body potentially representing a bone island. Anatomic alignment and positioning of the vertebral bodies and posterior elements is noted. The atlantoaxial joint and craniovertebral articulations are normal without evidence of subluxation. There is no prevertebral soft tissue swelling. Biapical pleural parenchymal scarring probably. Calcifications of the left thyroid lobe. IMPRESSION: 1. No acute visible fracture or dislocation. 2. Straightening of the normal cervical curvature. 3. Multilevel degenerative changes. Chest X-Ray 10/16/23 21:10 IMPRESSION: 1. No focal infiltrate or congestive heart failure is seen. 2. There is mild left base linear scar/subsegmental atelectasis. Assessment and Plan (1) DKA (diabetic ketoacidosis): Status: Acute Plan This is a 73-year-old female with pertinent history of insulin-dependent diabetes mellitus, paroxysmal atrial fibrillation on Eliquis, chronic right-sided heart failure, chronic kidney disease stage 2, peripheral vascular disease who presents to the emergency department for evaluation of elevated blood sugars. #. Acute hyperglycemia with Diabetic ketoacidosis in a patient with diabetes mellitus: Resolved. Gap closed in the ER. Initiating basal plus insulin regimen. Diabetes education. #. Acute kidney injury on CKD stage 2, prerenal: Resolved with crystalloid resuscitation. Continue to monitor serum creatinine and urine output #. ?Syncope, likely orthostatic: Resuscitated with IV crystalloids. Obtain orthostatic vital signs in a.m. Cardiac monitoring #. Pancreatic mass: Outpatient follow-up with [facility] for endoscopic ultrasound-guided biopsy. Outpatient Oncology follow-up for initiation of possible systemic chemotherapy. #. Paroxysmal atrial fibrillation on Eliquis, metoprolol and diltiazem #. Chronic right-sided heart failure on diuretics #. Nonhealing wound on plantar aspect of right foot: Wound care Med rec pending DVT prophylaxis: Eliquis Full code Admit as inpatient and will require two night minimum hospital stay for close monitoring of blood sugars, titration of insulin regimen (as above), which is not possible in a lesser acute setting. Quality Stroke Does the patient have a stroke diagnosis?: No VTE Prior VTE?: No VTE Risk Level:: Medical - moderate - high VTE Device Contraindication: Treatment Not Indicated VTE Drug Contraindication: N/A - Med Ordered
[2023-10-17] VITALS (15 sets, daily range): BP systolic 90–131; BP diastolic 43–62; PULSE 92–155; RESP 13–24; TEMP 36.3–37.7; O2SAT 93–100
[2023-10-17 00:10] LABS: Glucose, Whole Blood 216 mg/dL (60-115)
[2023-10-17] MEDS: 0.9 % Sodium Chloride Flush 3 ML SYRINGE IVFLUSH ×3 (01:00→23:41)
[2023-10-17 01:05] LABS: Glucose, Whole Blood 237 mg/dL (60-115)
[2023-10-17 05:52] LABS: Basophils Percent Auto 0.6 % (0-2); Hematocrit 30.7 % (37.0-47.0); Hemoglobin 9.8 g/dl (12.0-16.0); Imm Gran Abs Auto 0.02 X10*3/uL (0.00-0.03); Imm Gran Pct Auto 0.6 % (0.0-0.4); Lymphocytes Absolute Auto 0.3 X10*3/uL (1.2-4.9); Lymphocytes Percent Auto 8.1 % (20-40); MANUAL DIFF FLAG SCAN; Mean Corpuscular HGB Conc 31.9 g/dl (31.0-35.0); Mean Corpuscular Hemoglobin 30.7 pg (27.0-33.0); Mean Corpuscular Volume 96.2 fL (80.0-98.0); Mean Platelet Volume 10.5 fL (9.4-12.3); Monocytes Absolute Auto 0.3 X10*3/uL (0.1-1.2); Neutrophils Absolute Auto 2.5 x10*3/uL (2.0-8.3); Neutrophils Percent Auto 80.7 % (45-73); Platelet Count 138 X10*3/uL (160-400); Red Blood Count 3.19 X10*6/uL (4.20-5.50); SCAN SMEAR FLAG 1; White Blood Count 3.1 X10*3/uL (4.8-10.8)
[2023-10-17 06:06] LABS: Glucose, Whole Blood 225 mg/dL (60-115)
[2023-10-17 06:06] LABS: Glucose, Whole Blood 213 mg/dL (60-115)
[2023-10-17 06:09] LABS: Anion Gap 19 (12-20); Blood Urea Nitrogen 28 mg/dL (9-16); Calcium 8.6 mg/dL (8.4-10.2); Carbon Dioxide 18 mmol/L (22-29); Chloride 107 mmol/L (96-108); Estimated Glomerular Filt Rate 40; Glucose Random 227 mg/dL (60-115); Sodium 140 mmol/L (135-145)
[2023-10-17 06:17] LABS: SLIDE REVIEW VERIFIED
--- NOTE | 2023-10-17 07:36 | P.PNIM_ITS ---
Subjective Subjective Date of Service: 10/17/23 Interval History: Seen in follow up for hyperglycemia/DKA, orthostatic syncope Interval history: Reports general weakness. No lightheadness, syncope, palpitations, sob, cp. Glucose levels improved Review of Systems Review of Systems: Yes all other systems are reviewed and are negative Physical Exam 2 Vital Signs: Vital Signs: Last Vital Signs Temp 97.4 F 10/17/23 05:48 Pulse 92 10/17/23 05:48 Resp 16 10/17/23 05:48 BP 120/59 L 10/17/23 05:48 Pulse Ox 96 10/17/23 05:48 O2 Del Method Room Air 10/17/23 05:48 BMI result Body Mass Index 24.1 Constitutional - Awake and Alert, No apparent distress Eyes - PERRLA, EOMI, dry lips Cardiovascular - S1S2, RRR, No edema Respiratory - Normal lung expansion, Normal respiratory effort, No respiratory distress, CTA bilaterally Gastrointestinal - NT / ND; +BS; No rebound or guarding Extremities - no calf tenderness bilaterally, no swelling Skin - Warm/Dry Neurological - Alert & oriented x3 Psychological - Appropriate affect Objective Data Active Medications Acetaminophen (Acetaminophen 325 Mg Tablet) 650 mg PO Q6H PRN PRN Reason: Pain, Mild (Pain Scale 1-3) Glucose (Glucose Gel 15 Gm Gel..Gram.) 15 gm PO Q15M PRN; Protocol PRN Reason: per Hypoglycemia Standing Ord. Insulin Human Regular (Myxredlin) 100 unit in 100 mls @ 6 mls/hr IVCONT .[id number] [facility]; Protocol Last Titration: 10/17/23 00:11 Dose: 0 unit/hr, 0 mls/hr Documented By: PAT Co-signed By: ANNETTA Dextrose ([email or web address]) 250 mls @ 750 mls/hr IV Q30M PRN PRN Reason: BG <70 Dextrose (D10) 250 mls @ 750 mls/hr IV Q15M PRN; Protocol PRN Reason: per Hypoglycemia Standing Ord. Insulin Glargine (Insulin Glargine,Hum.Rec.Anlog 100 Unit/Ml 10 Ml Vial) 12 unit SUBCUT BEDTIME ZENY Insulin Human Lispro (Insulin Lispro 100 Unit/Ml 3 Ml Vial) 0 unit SUBCUT QIDACHS [facility]; Protocol Melatonin (Melatonin 3 Mg Tablet) 6 mg PO BEDTIME PRN PRN Reason: Insomnia Ondansetron HCl (Ondansetron Hcl 4 Mg/2 Ml Vial) 4 mg IVPUSH Q8H PRN PRN Reason: Nausea and Vomiting Sodium Chloride (0.9 % Sodium Chloride Flush 3 Ml Syringe) 3 ml IVFLUSH QSHIFT [facility] Last Admin: 10/17/23 01:00 Dose: 3 ml Documented By: PAT Labs 10/17/23 04:49 10/17/23 04:46 Labs: Laboratory Results - last 24 hr 10/16/23 10/16/23 10/16/23 16:51 17:54 17:57 MCV 93.6 MCH 31.1 MCHC 33.2 RDW 19.3 H Plt Count 170 D MPV 10.4 Immature Gran % (Auto) 0.9 H Neut % (Auto) 91.3 H Lymph % (Auto) 2.4 L [place] % (Auto) 2.0 Eos % (Auto) 2.7 Baso % (Auto) 0.7 Lymph # (Auto) 0.1 L [place] # (Auto) 0.1 Eos # (Auto) 0.1 Baso # (Auto) 0.0 Abs Immat Gran (auto) 0.04 H Absolute Neuts (auto) 4.1 Absolute Nucleated RBC 0.000 Nucleated RBC % (auto) 0.0 Smear Tech's Comments VERIFIED VBG pH 7.37 VBG pCO2 32 VBG pO2 54 VBG HCO3 19 L VBG O2 Saturation 83.0 VBG Base Excess -4.6 Anion Gap 24 H Estim Creat Clear Calc 19.9 Estimated GFR 23 POC Glucose > 600 H* Random Glucose 771 H* Fasting Glucose Calcium 9.7 Magnesium 2.5 Total Bilirubin 2.0 H Direct Bilirubin 1.3 H AST 102 H ALT 73 H Alkaline Phosphatase 217 H Total Creatine Kinase 247 H Troponin I High Sens 19.5 H Total Protein 7.0 Albumin 3.5 Beta-Hydroxybutyrate 4.73 H Urine Color Urine Appearance Urine pH Ur Specific [place] Urine Protein Urine Glucose (UA) Urine Ketones Urine Blood Urine Nitrite Ur Leukocyte Esterase Urine RBC Urine WBC Ur Squamous Epith Cells Urine Bacteria Hyaline Casts Urine Yeast 10/16/23 10/16/23 10/16/23 18:00 19:16 20:36 MCV MCH MCHC RDW Plt Count MPV Immature Gran % (Auto) Neut % (Auto) Lymph % (Auto) [place] % (Auto) Eos % (Auto) Baso % (Auto) Lymph # (Auto) [place] # (Auto) Eos # (Auto) Baso # (Auto) Abs Immat Gran (auto) Absolute Neuts (auto) Absolute Nucleated RBC Nucleated RBC % (auto) Smear Tech's Comments VBG pH VBG pCO2 VBG pO2 VBG HCO3 VBG O2 Saturation VBG Base Excess Anion Gap Estim Creat Clear Calc Estimated GFR POC Glucose 585 H* 534 H* 438 H* Random Glucose Fasting Glucose Calcium Magnesium Total Bilirubin Direct Bilirubin AST ALT Alkaline Phosphatase Total Creatine Kinase Troponin I High Sens Total Protein Albumin Beta-Hydroxybutyrate Urine Color Urine Appearance Urine pH Ur Specific [place] Urine Protein Urine Glucose (UA) Urine Ketones Urine Blood Urine Nitrite Ur Leukocyte Esterase Urine RBC Urine WBC Ur Squamous Epith Cells Urine Bacteria Hyaline Casts Urine Yeast 10/16/23 10/16/23 10/16/23 21:42 22:18 22:24 MCV MCH MCHC RDW Plt Count MPV Immature Gran % (Auto) Neut % (Auto) Lymph % (Auto) [place] % (Auto) Eos % (Auto) Baso % (Auto) Lymph # (Auto) [place] # (Auto) Eos # (Auto) Baso # (Auto) Abs Immat Gran (auto) Absolute Neuts (auto) Absolute Nucleated RBC Nucleated RBC % (auto) Smear Tech's Comments VBG pH VBG pCO2 VBG pO2 VBG HCO3 VBG O2 Saturation VBG Base Excess Anion Gap 17 Estim Creat Clear Calc 30.4 Estimated GFR 37 POC Glucose 344 H Random Glucose Fasting Glucose 262 H Calcium 9.1 D Magnesium Total Bilirubin 1.6 H Direct Bilirubin AST 94 H ALT 70 H Alkaline Phosphatase 187 H Total Creatine Kinase Troponin I High Sens 18.9 H Total Protein 6.0 L Albumin 3.0 L Beta-Hydroxybutyrate Urine Color Yellow Urine Appearance Clear Urine pH 5.5 Ur Specific [place] >= 1.030 H Urine Protein 30 (1+) H Urine Glucose (UA) >=1000 H Urine Ketones 15 Urine Blood Small (1+) H Urine Nitrite Negative Ur Leukocyte Esterase Negative Urine RBC 11-20 H Urine WBC 11-20 H Ur Squamous Epith Cells 0-2 Urine Bacteria 2+ Hyaline Casts 0-2 Urine Yeast Present 10/17/23 10/17/23 10/17/23 00:06 01:01 02:04 MCV MCH MCHC RDW Plt Count MPV Immature Gran % (Auto) Neut % (Auto) Lymph % (Auto) [place] % (Auto) Eos % (Auto) Baso % (Auto) Lymph # (Auto) [place] # (Auto) Eos # (Auto) Baso # (Auto) Abs Immat Gran (auto) Absolute Neuts (auto) Absolute Nucleated RBC Nucleated RBC % (auto) Smear Tech's Comments VBG pH VBG pCO2 VBG pO2 VBG HCO3 VBG O2 Saturation VBG Base Excess Anion Gap Estim Creat Clear Calc Estimated GFR POC Glucose 216 H 237 H 225 H Random Glucose Fasting Glucose Calcium Magnesium Total Bilirubin Direct Bilirubin AST ALT Alkaline Phosphatase Total Creatine Kinase Troponin I High Sens Total Protein Albumin Beta-Hydroxybutyrate Urine Color Urine Appearance Urine pH Ur Specific [place] Urine Protein Urine Glucose (UA) Urine Ketones Urine Blood Urine Nitrite Ur Leukocyte Esterase Urine RBC Urine WBC Ur Squamous Epith Cells Urine Bacteria Hyaline Casts Urine Yeast 10/17/23 10/17/23 10/17/23 04:46 04:49 06:03 MCV 96.2 MCH 30.7 MCHC 31.9 RDW 19.0 H Plt Count 138 L MPV 10.5 Immature Gran % (Auto) 0.6 H Neut % (Auto) 80.7 H Lymph % (Auto) 8.1 L [place] % (Auto) 10.0 Eos % (Auto) 0.0 Baso % (Auto) 0.6 Lymph # (Auto) 0.3 L [place] # (Auto) 0.3 Eos # (Auto) 0.0 Baso # (Auto) 0.0 Abs Immat Gran (auto) 0.02 Absolute Neuts (auto) 2.5 Absolute Nucleated RBC 0.000 Nucleated RBC % (auto) 0.0 Smear Tech's Comments VERIFIED VBG pH VBG pCO2 VBG pO2 VBG HCO3 VBG O2 Saturation VBG Base Excess Anion Gap 19 Estim Creat Clear Calc 33.0 Estimated GFR 40 POC Glucose 213 H Random Glucose 227 H Fasting Glucose Calcium 8.6 Magnesium Total Bilirubin Direct Bilirubin AST ALT Alkaline Phosphatase Total Creatine Kinase Troponin I High Sens Total Protein Albumin Beta-Hydroxybutyrate Urine Color Urine Appearance Urine pH Ur Specific [place] Urine Protein Urine Glucose (UA) Urine Ketones Urine Blood Urine Nitrite Ur Leukocyte Esterase Urine RBC Urine WBC Ur Squamous Epith Cells Urine Bacteria Hyaline Casts Urine Yeast Assessment and Plan (1) Syncope: Status: Acute (2) DKA (diabetic ketoacidosis): Status: Acute (3) Type 2 diabetes mellitus: Status: Acute (4) Acute kidney injury: Status: Acute Plan 73-year-old female with pertinent history of insulin-dependent diabetes mellitus, paroxysmal atrial fibrillation on Eliquis, chronic right-sided heart failure, chronic kidney disease stage 2, peripheral vascular disease admitted for further management of SAMI and hyperglycemia related to DKA now with closed AG and possible orthostatic syncope #Acute hyperglycemia with DKA in pt with uncontrolled type 2 dm -Gap closed in ED following IVF, weaned from insulin drip and started on lantus -glucose levels improving, but remain elevated -hgb a1c pending -continue lantus 12 units bedtime -continue admelog ssi -poc glucose, diabetic diet #Acute kidney injury- resolved -likely prerenal 2/2 dehydration r/t hyperglycemia -avoid nephrotoxins, encourage po intake -follow renal fx/lytes #Acute pseudohyponatremia -r/t hyperglycemia- resolved #Possible orthostatic syncope -no recurrent syncopal events, orthostatic vs negative this morning -will continue cardiac monitoring -pt eval #Pancreatic mass -Outpatient follow-up with [facility] for endoscopic ultrasound-guided biopsy. 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
[2023-10-17 08:41] LABS: Glucose, Whole Blood 181 mg/dL (60-115)
[2023-10-17] MEDS: Insulin Lispro 100 UNIT/ML 3 ML VIAL SUBCUT ×3 (08:50→21:13)
[2023-10-17 12:27] LABS: Estimated Average Glucose 226 mg/dL; Hemoglobin A1c % 9.5 % (<6.0)
[2023-10-17] MEDS: Furosemide 40 MG TABLET PO (12:37)
[2023-10-17] MEDS: Apixaban 5 MG TABLET PO ×2 (12:38→21:14)
[2023-10-17] MEDS: dilTIAZem HCL CD 240 MG CAP.ER.DEG PO (12:38)
[2023-10-17] MEDS: Insulin Regular/NS 100 UNIT/100 ML PLAST..BAG 6 UNIT IVCONT (12:44)
[2023-10-17 12:55] LABS: Glucose, Whole Blood 229 mg/dL (60-115)
--- NOTE | 2023-10-17 13:17 | ECG_ITS ---
Test Reason : TACHYCARDIC Blood Pressure : / mmHG Vent. Rate : 145 BPM Atrial Rate : 000 BPM P-R Int : 000 ms QRS Dur : 126 ms QT Int : 346 ms P-R-T Axes : 000 020 -08 degrees QTc Int : 537 ms Atrial fibrillation with rapid ventricular response Right bundle branch block Abnormal ECG When compared with ECG of 16-OCT-2023 16:42, Atrial fibrillation has replaced Sinus rhythm Referred By: Stephanie Dean Electronically Signed By:Cj Rider
[2023-10-17] MEDS: dilTIAZem HCL 50 MG/10 ML VIAL IVPUSH (13:40)
[2023-10-17] MEDS: dilTIAZem HCL 50 MG/10 ML VIAL 10 MG IVPUSH (13:42)
[2023-10-17] MEDS: 0.9 % Sodium Chloride 1,000 ML 999 ML IV (13:45)
[2023-10-17] MEDS: Metoprolol Tartrate 5 MG/5 ML VIAL IVPUSH (13:45)
--- NOTE | 2023-10-17 13:58 | PC.NURSE ---
delayed noted patient noted to be in afib RVR, asymptomatic, patient is sitting up alert and oriented. Attending provider notified, EKG, Labs and medicated per MAR. patient POC 210 patient denies any sob/chest pain patient placed on oxygen, low o2 sat, patient is on 3l nc satting 98%
[2023-10-17] MEDS: Digoxin 0.5 MG/2 ML AMPUL 0.25 MG IVPUSH ×2 (14:09→19:33)
--- NOTE | 2023-10-17 14:13 | PC.NURSE ---
Addendum entered by Gosia Aguilar RN 10/17/23 14:17: patient also bolused with 1 liter normal saline per provider order Original Note: patient providers at bedside, patient given a total de of 15mg diltizem IV at 1340, 5mg metoprolol IV 1345, medicated per MAR
[2023-10-17 14:24] LABS: VBG Base Excess -7.4 mmol/L; VBG HCO3 17 mmol/L (22-26); VBG pCO2 33 mmHg; VBG pH 7.32 (7.32-7.43); VBG pO2 78 mmHg
[2023-10-17 14:24] LABS: Hematocrit 30.3 % (37.0-47.0); Hemoglobin 10.1 g/dl (12.0-16.0); Mean Corpuscular HGB Conc 33.3 g/dl (31.0-35.0); Mean Corpuscular Volume 95.9 fL (80.0-98.0); Mean Platelet Volume 10.2 fL (9.4-12.3); Platelet Count 110 X10*3/uL (160-400); Red Blood Count 3.16 X10*6/uL (4.20-5.50); White Blood Count 2.5 X10*3/uL (4.8-10.8)
[2023-10-17 14:27] LABS: Venous Blood Gas Refer to POC result
[2023-10-17 14:30] LABS: D Dimer High Sensitivity 732 NG/ML
[2023-10-17 14:39] LABS: Anion Gap 17 (12-20); Blood Urea Nitrogen 24 mg/dL (9-16); Carbon Dioxide 18 mmol/L (22-29); Chloride 104 mmol/L (96-108); Creatinine Clr Calc Pharmacy 39.1; Estimated Glomerular Filt Rate 49; Glucose Random 262 mg/dL (60-115); Magnesium 2.1 mg/dL (1.6-2.6); Potassium 4.4 mmol/L (3.3-5.1); Sodium 135 mmol/L (135-145)
[2023-10-17 14:39] LABS: Lactic Acid 3.4 mmol/L (0.5-2.0)
[2023-10-17 14:47] LABS: Troponin-I High Sensitivity 12.6 ng/L (<3.5-17.0)
[2023-10-17 14:54] LABS: Glucose, Whole Blood 201 mg/dL (60-115)
[2023-10-17 14:54] LABS: Glucose, Whole Blood 213 mg/dL (60-115)
[2023-10-17 14:54] LABS: Glucose, Whole Blood 214 mg/dL (60-115)
--- NOTE | 2023-10-17 15:04 | PM.CCPN ---
Subjective Subjective Date of Service: 10/17/23 Interval History: 73-year-old lady with underlying diabetes mellitus, pancreatic mass undergoing workup, paroxysmal Eliquis chronic right-sided heart failure, CKD, PVD admitted on 10/16/2023 with diabetic ketoacidosis, started on insulin drip and gap closed in the emergency room, therefore patient initially admitted to [facility] [place], however today with development of rapid AFib with suboptimal control with initial IV Cardizem/labetalol, started on digoxin and transferred to intensive care unit. Critical Care Time (minutes): 0 Physical Exam Vital Signs: Vital Signs: Last Vital Signs Temp 98.3 F 10/17/23 13:56 Pulse 155 H 10/17/23 15:00 Resp 17 10/17/23 15:00 BP 104/56 L 10/17/23 15:00 Pulse Ox 99 10/17/23 15:00 O2 Del Method Nasal Cannula 10/17/23 15:00 O2 Flow Rate 3 10/17/23 15:00 BMI result Body Mass Index 24.1 Const: General: no acute distress, alert and awake Eyes: Sclerae: sclerae normal EOM: EOMs intact bilaterally Neck: Neck: Yes no lymphadenopathy, Yes trachea midline and Yes supple Resp: Effort & Inspection: normal respiratory effort and no respiratory distress Auscultation: clear to auscultation bilaterally Cardio: Rate: tachycardic Rhythm: abnormal rhythm irregularly irregular Heart sounds: no gallops, no murmurs and no rubs GI: Palpation (GI): Soft to palpation and Other GI palpation findings present ( Nontender) Auscultation: normal bowel sounds Extrem: General: Yes no pedal edema, No clubbing and No cyanosis Objective Data Labs 10/17/23 14:16 10/17/23 14:16 Labs: Laboratory Results - last 24 hr 10/16/23 10/16/23 10/16/23 16:51 17:54 17:57 WBC 4.5 L RBC 3.73 L Hgb 11.6 L Hct 34.9 L MCV 93.6 MCH 31.1 MCHC 33.2 RDW 19.3 H Plt Count 170 D MPV 10.4 Immature Gran % (Auto) 0.9 H Neut % (Auto) 91.3 H Lymph % (Auto) 2.4 L [place] % (Auto) 2.0 Eos % (Auto) 2.7 Baso % (Auto) 0.7 Lymph # (Auto) 0.1 L [place] # (Auto) 0.1 Eos # (Auto) 0.1 Baso # (Auto) 0.0 Abs Immat Gran (auto) 0.04 H Absolute Neuts (auto) 4.1 Absolute Nucleated RBC 0.000 Nucleated RBC % (auto) 0.0 Smear Tech's Comments VERIFIED D-Dimer High Sensitivty VBG pH 7.37 VBG pCO2 32 VBG pO2 54 VBG HCO3 19 L VBG O2 Saturation 83.0 VBG Base Excess -4.6 Sodium 131 L Potassium 5.1 Chloride 94 L Carbon Dioxide 18 L Anion Gap 24 H BUN 36 H Creatinine 2.14 H Estim Creat Clear Calc 19.9 Estimated GFR 23 POC Glucose > 600 H* Random Glucose 771 H* Fasting Glucose Estimat Average Glucose Hemoglobin A1c % Lactic Acid Calcium 9.7 Magnesium 2.5 Total Bilirubin 2.0 H Direct Bilirubin 1.3 H AST 102 H ALT 73 H Alkaline Phosphatase 217 H Total Creatine Kinase 247 H Troponin I High Sens 19.5 H Total Protein 7.0 Albumin 3.5 Beta-Hydroxybutyrate 4.73 H Urine Color Urine Appearance Urine pH Ur Specific [place] Urine Protein Urine Glucose (UA) Urine Ketones Urine Blood Urine Nitrite Ur Leukocyte Esterase Urine RBC Urine WBC Ur Squamous Epith Cells Urine Bacteria Hyaline Casts Urine Yeast 10/16/23 10/16/23 10/16/23 18:00 19:16 20:36 WBC RBC Hgb Hct MCV MCH MCHC RDW Plt Count MPV Immature Gran % (Auto) Neut % (Auto) Lymph % (Auto) [place] % (Auto) Eos % (Auto) Baso % (Auto) Lymph # (Auto) [place] # (Auto) Eos # (Auto) Baso # (Auto) Abs Immat Gran (auto) Absolute Neuts (auto) Absolute Nucleated RBC Nucleated RBC % (auto) Smear Tech's Comments D-Dimer High Sensitivty VBG pH VBG pCO2 VBG pO2 VBG HCO3 VBG O2 Saturation VBG Base Excess Sodium Potassium Chloride Carbon Dioxide Anion Gap BUN Creatinine Estim Creat Clear Calc Estimated GFR POC Glucose 585 H* 534 H* 438 H* Random Glucose Fasting Glucose Estimat Average Glucose Hemoglobin A1c % Lactic Acid Calcium Magnesium Total Bilirubin Direct Bilirubin AST ALT Alkaline Phosphatase Total Creatine Kinase Troponin I High Sens Total Protein Albumin Beta-Hydroxybutyrate Urine Color Urine Appearance Urine pH Ur Specific [place] Urine Protein Urine Glucose (UA) Urine Ketones Urine Blood Urine Nitrite Ur Leukocyte Esterase Urine RBC Urine WBC Ur Squamous Epith Cells Urine Bacteria Hyaline Casts Urine Yeast 10/16/23 10/16/23 10/16/23 21:42 22:18 22:24 WBC RBC Hgb Hct MCV MCH MCHC RDW Plt Count MPV Immature Gran % (Auto) Neut % (Auto) Lymph % (Auto) [place] % (Auto) Eos % (Auto) Baso % (Auto) Lymph # (Auto) [place] # (Auto) Eos # (Auto) Baso # (Auto) Abs Immat Gran (auto) Absolute Neuts (auto) Absolute Nucleated RBC Nucleated RBC % (auto) Smear Tech's Comments D-Dimer High Sensitivty VBG pH VBG pCO2 VBG pO2 VBG HCO3 VBG O2 Saturation VBG Base Excess Sodium 140 Potassium 3.9 D Chloride 105 Carbon Dioxide 22 Anion Gap 17 BUN 30 H Creatinine 1.40 Estim Creat Clear Calc 30.4 Estimated GFR 37 POC Glucose 344 H Random Glucose Fasting Glucose 262 H Estimat Average Glucose Hemoglobin A1c % Lactic Acid Calcium 9.1 D Magnesium Total Bilirubin 1.6 H Direct Bilirubin AST 94 H ALT 70 H Alkaline Phosphatase 187 H Total Creatine Kinase Troponin I High Sens 18.9 H Total Protein 6.0 L Albumin 3.0 L Beta-Hydroxybutyrate Urine Color Yellow Urine Appearance Clear Urine pH 5.5 Ur Specific [place] >= 1.030 H Urine Protein 30 (1+) H Urine Glucose (UA) >=1000 H Urine Ketones 15 Urine Blood Small (1+) H Urine Nitrite Negative Ur Leukocyte Esterase Negative Urine RBC 11-20 H Urine WBC 11-20 H Ur Squamous Epith Cells 0-2 Urine Bacteria 2+ Hyaline Casts 0-2 Urine Yeast Present 10/17/23 10/17/23 10/17/23 00:06 01:01 02:04 WBC RBC Hgb Hct MCV MCH MCHC RDW Plt Count MPV Immature Gran % (Auto) Neut % (Auto) Lymph % (Auto) [place] % (Auto) Eos % (Auto) Baso % (Auto) Lymph # (Auto) [place] # (Auto) Eos # (Auto) Baso # (Auto) Abs Immat Gran (auto) Absolute Neuts (auto) Absolute Nucleated RBC Nucleated RBC % (auto) Smear Tech's Comments D-Dimer High Sensitivty VBG pH VBG pCO2 VBG pO2 VBG HCO3 VBG O2 Saturation VBG Base Excess Sodium Potassium Chloride Carbon Dioxide Anion Gap BUN Creatinine Estim Creat Clear Calc Estimated GFR POC Glucose 216 H 237 H 225 H Random Glucose Fasting Glucose Estimat Average Glucose Hemoglobin A1c % Lactic Acid Calcium Magnesium Total Bilirubin Direct Bilirubin AST ALT Alkaline Phosphatase Total Creatine Kinase Troponin I High Sens Total Protein Albumin Beta-Hydroxybutyrate Urine Color Urine Appearance Urine pH Ur Specific [place] Urine Protein Urine Glucose (UA) Urine Ketones Urine Blood Urine Nitrite Ur Leukocyte Esterase Urine RBC Urine WBC Ur Squamous Epith Cells Urine Bacteria Hyaline Casts Urine Yeast 10/17/23 10/17/23 10/17/23 04:46 04:49 06:03 WBC 3.1 L RBC 3.19 L Hgb 9.8 L Hct 30.7 L MCV 96.2 MCH 30.7 MCHC 31.9 RDW 19.0 H Plt Count 138 L MPV 10.5 Immature Gran % (Auto) 0.6 H Neut % (Auto) 80.7 H Lymph % (Auto) 8.1 L [place] % (Auto) 10.0 Eos % (Auto) 0.0 Baso % (Auto) 0.6 Lymph # (Auto) 0.3 L [place] # (Auto) 0.3 Eos # (Auto) 0.0 Baso # (Auto) 0.0 Abs Immat Gran (auto) 0.02 Absolute Neuts (auto) 2.5 Absolute Nucleated RBC 0.000 Nucleated RBC % (auto) 0.0 Smear Tech's Comments VERIFIED D-Dimer High Sensitivty VBG pH VBG pCO2 VBG pO2 VBG HCO3 VBG O2 Saturation VBG Base Excess Sodium 140 Potassium 4.0 Chloride 107 Carbon Dioxide 18 L Anion Gap 19 BUN 28 H Creatinine 1.29 Estim Creat Clear Calc 33.0 Estimated GFR 40 POC Glucose 213 H Random Glucose 227 H Fasting Glucose Estimat Average Glucose 226 Hemoglobin A1c % 9.5 H Lactic Acid Calcium 8.6 Magnesium Total Bilirubin Direct Bilirubin AST ALT Alkaline Phosphatase Total Creatine Kinase Troponin I High Sens Total Protein Albumin Beta-Hydroxybutyrate Urine Color Urine Appearance Urine pH Ur Specific [place] Urine Protein Urine Glucose (UA) Urine Ketones Urine Blood Urine Nitrite Ur Leukocyte Esterase Urine RBC Urine WBC Ur Squamous Epith Cells Urine Bacteria Hyaline Casts Urine Yeast 10/17/23 10/17/23 10/17/23 08:38 12:36 13:14 WBC RBC Hgb Hct MCV MCH MCHC RDW Plt Count MPV Immature Gran % (Auto) Neut % (Auto) Lymph % (Auto) [place] % (Auto) Eos % (Auto) Baso % (Auto) Lymph # (Auto) [place] # (Auto) Eos # (Auto) Baso # (Auto) Abs Immat Gran (auto) Absolute Neuts (auto) Absolute Nucleated RBC Nucleated RBC % (auto) Smear Tech's Comments D-Dimer High Sensitivty VBG pH VBG pCO2 VBG pO2 VBG HCO3 VBG O2 Saturation VBG Base Excess Sodium Potassium Chloride Carbon Dioxide Anion Gap BUN Creatinine Estim Creat Clear Calc Estimated GFR POC Glucose 181 H 229 H 213 H Random Glucose Fasting Glucose Estimat Average Glucose Hemoglobin A1c % Lactic Acid Calcium Magnesium Total Bilirubin Direct Bilirubin AST ALT Alkaline Phosphatase Total Creatine Kinase Troponin I High Sens Total Protein Albumin Beta-Hydroxybutyrate Urine Color Urine Appearance Urine pH Ur Specific [place] Urine Protein Urine Glucose (UA) Urine Ketones Urine Blood Urine Nitrite Ur Leukocyte Esterase Urine RBC Urine WBC Ur Squamous Epith Cells Urine Bacteria Hyaline Casts Urine Yeast 10/17/23 10/17/23 10/17/23 13:20 13:48 14:05 WBC RBC Hgb Hct MCV MCH MCHC RDW Plt Count MPV Immature Gran % (Auto) Neut % (Auto) Lymph % (Auto) [place] % (Auto) Eos % (Auto) Baso % (Auto) Lymph # (Auto) [place] # (Auto) Eos # (Auto) Baso # (Auto) Abs Immat Gran (auto) Absolute Neuts (auto) Absolute Nucleated RBC Nucleated RBC % (auto) Smear Tech's Comments D-Dimer High Sensitivty VBG pH VBG pCO2 VBG pO2 VBG HCO3 VBG O2 Saturation VBG Base Excess Sodium Potassium Chloride Carbon Dioxide Anion Gap BUN Creatinine Estim Creat Clear Calc Estimated GFR POC Glucose 214 H 201 H Random Glucose Fasting Glucose Estimat Average Glucose Hemoglobin A1c % Lactic Acid 3.4 H* Calcium Magnesium Total Bilirubin Direct Bilirubin AST ALT Alkaline Phosphatase Total Creatine Kinase Troponin I High Sens Total Protein Albumin Beta-Hydroxybutyrate Urine Color Urine Appearance Urine pH Ur Specific [place] Urine Protein Urine Glucose (UA) Urine Ketones Urine Blood Urine Nitrite Ur Leukocyte Esterase Urine RBC Urine WBC Ur Squamous Epith Cells Urine Bacteria Hyaline Casts Urine Yeast 10/17/23 10/17/23 14:16 14:18 WBC 2.5 L RBC 3.16 L Hgb 10.1 L Hct 30.3 L MCV 95.9 MCH 32.0 MCHC 33.3 RDW 19.0 H Plt Count 110 L MPV 10.2 Immature Gran % (Auto) Neut % (Auto) Lymph % (Auto) [place] % (Auto) Eos % (Auto) Baso % (Auto) Lymph # (Auto) [place] # (Auto) Eos # (Auto) Baso # (Auto) Abs Immat Gran (auto) Absolute Neuts (auto) Absolute Nucleated RBC 0.000 Nucleated RBC % (auto) 0.0 Smear Tech's Comments D-Dimer High Sensitivty 732 VBG pH 7.32 VBG pCO2 33 VBG pO2 78 VBG HCO3 17 L VBG O2 Saturation 95.0 VBG Base Excess -7.4 Sodium 135 Potassium 4.4 Chloride 104 Carbon Dioxide 18 L Anion Gap 17 BUN 24 H Creatinine 1.09 Estim Creat Clear Calc 39.1 Estimated GFR 49 POC Glucose Random Glucose 262 H Fasting Glucose Estimat Average Glucose Hemoglobin A1c % Lactic Acid Calcium 8.0 L D Magnesium 2.1 Total Bilirubin Direct Bilirubin AST ALT Alkaline Phosphatase Total Creatine Kinase Troponin I High Sens 12.6 Total Protein Albumin Beta-Hydroxybutyrate Urine Color Urine Appearance Urine pH Ur Specific [place] Urine Protein Urine Glucose (UA) Urine Ketones Urine Blood Urine Nitrite Ur Leukocyte Esterase Urine RBC Urine WBC Ur Squamous Epith Cells Urine Bacteria Hyaline Casts Urine Yeast Progress Note: A&P Assessment and plan (1) Acute kidney injury: Status: Acute (2) Type 2 diabetes mellitus: Status: Acute (3) Atrial fibrillation with RVR: Status: Acute Plan Assessment: 73-year-old lady initially admitted with diabetic ketoacidosis which resolved, but hospital course further complicated by AFib with RVR requiring transfer to the intensive care unit. Plan: Neuro: No acute issues. Cardiac: AFib with RVR poor response to initial IV albuterol/Cardizem. Started on digoxin. Continue Eliquis. Underlying history of right-sided chronic congestive heart failure. Pulmonary: No acute issues. Renal: Acute kidney injury secondary to diabetic ketoacidosis improved with hydration. Continue to monitor renal indices and urine output. Endo: No acute issues. GI: No acute issues. Underlying history of pancreatic mass undergoing workup. ID: No acute issues Heme/Onc: No acute issues. Psych: No acute issues. Miscellaneous: No acute issues. Prophylaxis: Heparin Diet: Diabetic Quality Stroke Does the patient have a stroke diagnosis?: No VTE Prior VTE?: No VTE Risk Level:: Medical - moderate - high VTE Device Contraindication: Treatment Not Indicated VTE Drug Contraindication: N/A - Med Ordered
[2023-10-17 15:10] LABS: Glucose, Whole Blood 214 mg/dL (60-115)
[2023-10-17] MEDS: Acetaminophen 325 MG TABLET 650 MG PO (16:05)
[2023-10-17 16:07] LABS: Reflex Lactate? Lactic Acid Added
--- NOTE | 2023-10-17 16:08 | PC.NURSE ---
Pt arrived from ED to ICU at 14:45 Pt in Afib RVR on tele with BBB HR 130-160 MD notified, per MD monitor, no new orders. Pt received diltiazem, digoxin and lopressor IVP in ED. Pt alert, awake, eyes open, A+Ox4. States mild headache and prn Tylenol given. Insulin gtt d/c'd by . Pt arrived from ED without insulin gtt hanging. Insulin drip completed and discontinued in AUG by this RN and cosigner. wound/skin pictures included in separate skin note
[2023-10-17 16:27] LABS: Glucose, Whole Blood 219 mg/dL (60-115)
[2023-10-17 17:02] LABS: ~Lactic Acid-LAB USE ONLY 1.6 mmol/L (0.5-2.0)
[2023-10-17 18:22] LABS: Anion Gap 17 (12-20); Blood Urea Nitrogen 24 mg/dL (9-16); Carbon Dioxide 18 mmol/L (22-29); Chloride 102 mmol/L (96-108); Estimated Glomerular Filt Rate 52; Glucose Random 283 mg/dL (60-115); Potassium 4.2 mmol/L (3.3-5.1); Sodium 133 mmol/L (135-145)
--- NOTE | 2023-10-17 18:56 | HO.SKINPHOTO ---
Location: Right foot Category: Diabetic Ulcer Length: 5cm Width: 2cm Depth: cm Location: b/l buttocks, sacral bony prominence Category: Pressure Stage: DTI
[2023-10-17] MEDS: Amiodarone/Dextrose 150 MG/100 ML PLAST..BAG 600 MG IV (20:48)
[2023-10-17] MEDS: Amiodarone HCL 900 MG in 0.9 % Sodium Chloride 500 ML 34.53 MG IVCONT (21:00)
[2023-10-17 21:03] LABS: Glucose, Whole Blood 266 mg/dL (60-115)
[2023-10-17] MEDS: Insulin Glargine,Hum.rec.anlog 100 UNIT/ML 10 ML VIAL 12 UNIT SUBCUT (21:14)
[2023-10-18] VITALS (17 sets, daily range): BP systolic 99–120; BP diastolic 50–62; PULSE 85–124; RESP 14–24; TEMP 36.6–37.4; O2SAT 97–100; BMI 26.8
[2023-10-18] MEDS: Digoxin 0.5 MG/2 ML AMPUL 0.25 MG IVPUSH (00:05)
[2023-10-18 05:30] LABS: VBG Base Excess -2.3 mmol/L; VBG HCO3 20 mmol/L (22-26); VBG pCO2 28 mmHg; VBG pH 7.46 (7.32-7.43); VBG pO2 43 mmHg
[2023-10-18 05:33] LABS: Venous Blood Gas Refer to POC result
[2023-10-18 05:45] LABS: Basophils Percent Auto 0.4 % (0-2); Hemoglobin 9.5 g/dl (12.0-16.0); Imm Gran Abs Auto 0.01 X10*3/uL (0.00-0.03); Imm Gran Pct Auto 0.4 % (0.0-0.4); Lymphocytes Absolute Auto 0.2 X10*3/uL (1.2-4.9); Lymphocytes Percent Auto 8.2 % (20-40); MANUAL DIFF FLAG SCAN; Mean Corpuscular HGB Conc 32.8 g/dl (31.0-35.0); Mean Corpuscular Hemoglobin 30.5 pg (27.0-33.0); Mean Corpuscular Volume 93.2 fL (80.0-98.0); Mean Platelet Volume 10.4 fL (9.4-12.3); Monocytes Absolute Auto 0.2 X10*3/uL (0.1-1.2); Monocytes Percent Auto 6.5 % (2-11); Neutrophils Absolute Auto 2.1 x10*3/uL (2.0-8.3); Neutrophils Percent Auto 84.5 % (45-73); Red Blood Count 3.11 X10*6/uL (4.20-5.50); Red Cell Distribution Width 18.6 % (11.0-16.0); SCAN SMEAR FLAG 1
[2023-10-18 05:50] LABS: White Blood Count 2.5 X10*3/uL (4.8-10.8)
[2023-10-18 05:51] LABS: Platelet Count 94 X10*3/uL (160-400)
[2023-10-18 06:06] LABS: Alanine Aminotransferase 55 U/L (0-31); Albumin Level 2.4 g/dL (3.5-5.0); Alkaline Phosphatase 134 U/L (39-117); Anion Gap 16 (12-20); Aspartate Amino Transferase 53 U/L (5-31); Bilirubin Total 1.4 mg/dL (0.0-1.0); Blood Urea Nitrogen 23 mg/dL (9-16); Calcium 7.9 mg/dL (8.4-10.2); Carbon Dioxide 17 mmol/L (22-29); Chloride 102 mmol/L (96-108); Creatinine Clr Calc Pharmacy 42.2; Estimated Glomerular Filt Rate 54; Glucose Random 172 mg/dL (60-115); Phosphorus 2.1 mg/dL (2.7-4.5); Sodium 131 mmol/L (135-145)
[2023-10-18 06:11] LABS: SLIDE REVIEW VERIFIED
[2023-10-18 07:25] LABS: Glucose, Whole Blood 174 mg/dL (60-115)
[2023-10-18] MEDS: Insulin Lispro 100 UNIT/ML 3 ML VIAL SUBCUT ×4 (07:48→21:30)
[2023-10-18] MEDS: 0.9 % Sodium Chloride Flush 3 ML SYRINGE IVFLUSH ×3 (07:49→19:28)
[2023-10-18] MEDS: dilTIAZem HCL CD 240 MG CAP.ER.DEG PO (07:50)
[2023-10-18] MEDS: Furosemide 40 MG TABLET PO ×2 (07:50→13:01)
[2023-10-18] MEDS: Metoprolol Tartrate 12.5 MG HALFTAB 37.5 MG PO ×2 (07:51→21:30)
[2023-10-18] MEDS: Apixaban 5 MG TABLET PO ×2 (07:51→21:30)
--- NOTE | 2023-10-18 08:44 | MHC.CLN ---
PT WITH INCREASED NUTRITION RISK R/T PRESSURE INJURY RECOMMEND ADDING ENSURE MAX BID TO PROMOTE WOUND HEALING SUPPLEMENT TO PROVIDE 300KCALS, 60G PROTEIN MONITOR PO INTAKE AND ENCOURAGE SUPPLEMENTS FULL NUTRITION ASSESSMENT TO FOLLOW
--- NOTE | 2023-10-18 09:23 | MHC.CM.PN ---
IMM DELIVERED. PT LIVES WITH FAMILY. PT USES [facility] FOR MOBILITY. + HCP ON FILE PCP SRINIVASA GUERRERO AT [facility] DP: HOME WITH POSSIBLE SERVICES IF PT IS AGREEABLE AT THE TIME OF DC. SON WILL TRANSPORT HOME. CM WILL CONTINUE TO FOLLOW FOR ANY CHANGE IN DC PLAN/NEEDS.
[2023-10-18] MEDS: Potassium Phosphate/NS 15 MMOL/250 ML PLAST..BAG 62.5 MMOL IV (09:46)
[2023-10-18] MEDS: Albumin Human 25 % 100 ML IV ×3 (09:47→19:27)
[2023-10-18] MEDS: Amiodarone HCL 200 MG TABLET PO ×2 (09:47→21:30)
--- NOTE | 2023-10-18 09:55 | P.PNCC_ITS ---
Subjective Subjective Date of Service: 10/18/23 Interval History: 73-year-old lady with underlying diabetes mellitus, pancreatic mass undergoing workup, paroxysmal Eliquis chronic right-sided heart failure, CKD, PVD admitted on 10/16/2023 with diabetic ketoacidosis, started on insulin drip and gap closed in the emergency room, therefore patient initially admitted to general medical [facility], however today with development of rapid AFib with suboptimal control with initial IV Cardizem/labetalol, started on digoxin and transferred to intensive care unit. Required full digoxin loading and initiation amiodarone. Now transitioned from amiodarone drip to p.o. amiodarone. Critical Care Time (minutes): 0 Physical Exam 2 Vital Signs: Vital Signs: Last Vital Signs Temp 99.3 F 10/18/23 08:00 Pulse 85 10/18/23 08:59 Resp 16 10/18/23 08:59 BP 120/61 10/18/23 08:59 Pulse Ox 100 10/18/23 08:59 O2 Del Method Nasal Cannula 10/18/23 08:59 O2 Flow Rate 1 10/18/23 08:59 BMI result Body Mass Index 26.8 Const: General: no acute distress, alert and awake Eyes: Sclerae: sclerae normal EOM: EOMs intact bilaterally Neck: Neck: Yes no lymphadenopathy, Yes trachea midline and Yes supple Resp: Effort & Inspection: normal respiratory effort and no respiratory distress Auscultation: clear to auscultation bilaterally Cardio: Rate: regular rate Rhythm: regular rhythm Heart sounds: no gallops, no murmurs and no rubs GI: Palpation (GI): Soft to palpation and Other GI palpation findings present ( Nontender) Auscultation: normal bowel sounds Extrem: General: No clubbing, No cyanosis and Yes pedal edema (1+ bilateral) Objective Data Labs 10/18/23 05:19 10/18/23 05:19 Labs: Laboratory Results - last 24 hr 10/17/23 10/17/23 10/17/23 04:46 12:36 13:14 WBC RBC Hgb Hct MCV MCH MCHC RDW Plt Count MPV Immature Gran % (Auto) Neut % (Auto) Lymph % (Auto) [place] % (Auto) Eos % (Auto) Baso % (Auto) Lymph # (Auto) [place] # (Auto) Eos # (Auto) Baso # (Auto) Abs Immat Gran (auto) Absolute Neuts (auto) Absolute Nucleated RBC Nucleated RBC % (auto) Smear Tech's Comments D-Dimer High Sensitivty VBG pH VBG pCO2 VBG pO2 VBG HCO3 VBG O2 Saturation VBG Base Excess Sodium Potassium Chloride Carbon Dioxide Anion Gap BUN Creatinine Estim Creat Clear Calc Estimated GFR POC Glucose 229 H 213 H Random Glucose Estimat Average Glucose 226 Hemoglobin A1c % 9.5 H Lactic Acid Lactic Acid F/U @ 2Hr Calcium Phosphorus Magnesium Total Bilirubin AST ALT Alkaline Phosphatase Troponin I High Sens Total Protein Albumin 10/17/23 10/17/23 10/17/23 13:20 13:48 14:05 WBC RBC Hgb Hct MCV MCH MCHC RDW Plt Count MPV Immature Gran % (Auto) Neut % (Auto) Lymph % (Auto) [place] % (Auto) Eos % (Auto) Baso % (Auto) Lymph # (Auto) [place] # (Auto) Eos # (Auto) Baso # (Auto) Abs Immat Gran (auto) Absolute Neuts (auto) Absolute Nucleated RBC Nucleated RBC % (auto) Smear Tech's Comments D-Dimer High Sensitivty VBG pH VBG pCO2 VBG pO2 VBG HCO3 VBG O2 Saturation VBG Base Excess Sodium Potassium Chloride Carbon Dioxide Anion Gap BUN Creatinine Estim Creat Clear Calc Estimated GFR POC Glucose 214 H 201 H Random Glucose Estimat Average Glucose Hemoglobin A1c % Lactic Acid 3.4 H* Lactic Acid F/U @ 2Hr Calcium Phosphorus Magnesium Total Bilirubin AST ALT Alkaline Phosphatase Troponin I High Sens Total Protein Albumin 10/17/23 10/17/23 10/17/23 14:16 14:18 15:07 WBC 2.5 L RBC 3.16 L Hgb 10.1 L Hct 30.3 L MCV 95.9 MCH 32.0 MCHC 33.3 RDW 19.0 H Plt Count 110 L MPV 10.2 Immature Gran % (Auto) Neut % (Auto) Lymph % (Auto) [place] % (Auto) Eos % (Auto) Baso % (Auto) Lymph # (Auto) [place] # (Auto) Eos # (Auto) Baso # (Auto) Abs Immat Gran (auto) Absolute Neuts (auto) Absolute Nucleated RBC 0.000 Nucleated RBC % (auto) 0.0 Smear Tech's Comments D-Dimer High Sensitivty 732 VBG pH 7.32 VBG pCO2 33 VBG pO2 78 VBG HCO3 17 L VBG O2 Saturation 95.0 VBG Base Excess -7.4 Sodium 135 Potassium 4.4 Chloride 104 Carbon Dioxide 18 L Anion Gap 17 BUN 24 H Creatinine 1.09 Estim Creat Clear Calc 39.1 Estimated GFR 49 POC Glucose 214 H Random Glucose 262 H Estimat Average Glucose Hemoglobin A1c % Lactic Acid Lactic Acid F/U @ 2Hr Calcium 8.0 L D Phosphorus Magnesium 2.1 Total Bilirubin AST ALT Alkaline Phosphatase Troponin I High Sens 12.6 Total Protein Albumin 10/17/23 10/17/23 10/17/23 16:23 16:40 17:54 WBC RBC Hgb Hct MCV MCH MCHC RDW Plt Count MPV Immature Gran % (Auto) Neut % (Auto) Lymph % (Auto) [place] % (Auto) Eos % (Auto) Baso % (Auto) Lymph # (Auto) [place] # (Auto) Eos # (Auto) Baso # (Auto) Abs Immat Gran (auto) Absolute Neuts (auto) Absolute Nucleated RBC Nucleated RBC % (auto) Smear Tech's Comments D-Dimer High Sensitivty VBG pH VBG pCO2 VBG pO2 VBG HCO3 VBG O2 Saturation VBG Base Excess Sodium 133 L Potassium 4.2 Chloride 102 Carbon Dioxide 18 L Anion Gap 17 BUN 24 H Creatinine 1.04 Estim Creat Clear Calc 41.0 Estimated GFR 52 POC Glucose 219 H Random Glucose 283 H Estimat Average Glucose Hemoglobin A1c % Lactic Acid Lactic Acid F/U @ 2Hr 1.6 Calcium 8.0 L Phosphorus Magnesium Total Bilirubin AST ALT Alkaline Phosphatase Troponin I High Sens Total Protein Albumin 10/17/23 10/18/23 10/18/23 21:00 05:19 05:22 WBC 2.5 L RBC 3.11 L Hgb 9.5 L Hct 29.0 L MCV 93.2 MCH 30.5 MCHC 32.8 RDW 18.6 H Plt Count 94 L MPV 10.4 Immature Gran % (Auto) 0.4 Neut % (Auto) 84.5 H Lymph % (Auto) 8.2 L [place] % (Auto) 6.5 Eos % (Auto) 0.0 Baso % (Auto) 0.4 Lymph # (Auto) 0.2 L [place] # (Auto) 0.2 Eos # (Auto) 0.0 Baso # (Auto) 0.0 Abs Immat Gran (auto) 0.01 Absolute Neuts (auto) 2.1 Absolute Nucleated RBC 0.000 Nucleated RBC % (auto) 0.0 Smear Tech's Comments VERIFIED D-Dimer High Sensitivty VBG pH 7.46 H VBG pCO2 28 VBG pO2 43 VBG HCO3 20 L VBG O2 Saturation 78.0 VBG Base Excess -2.3 Sodium 131 L Potassium 4.0 Chloride 102 Carbon Dioxide 17 L Anion Gap 16 BUN 23 H Creatinine 1.01 Estim Creat Clear Calc 42.2 Estimated GFR 54 POC Glucose 266 H Random Glucose 172 H Estimat Average Glucose Hemoglobin A1c % Lactic Acid Lactic Acid F/U @ 2Hr Calcium 7.9 L Phosphorus 2.1 L Magnesium 2.0 Total Bilirubin 1.4 H AST 53 H ALT 55 H Alkaline Phosphatase 134 H Troponin I High Sens Total Protein 5.0 L Albumin 2.4 L 10/18/23 07:21 WBC RBC Hgb Hct MCV MCH MCHC RDW Plt Count MPV Immature Gran % (Auto) Neut % (Auto) Lymph % (Auto) [place] % (Auto) Eos % (Auto) Baso % (Auto) Lymph # (Auto) [place] # (Auto) Eos # (Auto) Baso # (Auto) Abs Immat Gran (auto) Absolute Neuts (auto) Absolute Nucleated RBC Nucleated RBC % (auto) Smear Tech's Comments D-Dimer High Sensitivty VBG pH VBG pCO2 VBG pO2 VBG HCO3 VBG O2 Saturation VBG Base Excess Sodium Potassium Chloride Carbon Dioxide Anion Gap BUN Creatinine Estim Creat Clear Calc Estimated GFR POC Glucose 174 H Random Glucose Estimat Average Glucose Hemoglobin A1c % Lactic Acid Lactic Acid F/U @ 2Hr Calcium Phosphorus Magnesium Total Bilirubin AST ALT Alkaline Phosphatase Troponin I High Sens Total Protein Albumin Microbiology Microbiology Results: Microbiology 10/16/23 Unknown Urine clean catch - Urine mahoney top Urine Culture - Final Progress Note: A&P Assessment and plan (1) Atrial fibrillation with RVR: Status: Acute (2) Acute kidney injury: Status: Acute (3) Type 2 diabetes mellitus: Status: Acute (4) DKA (diabetic ketoacidosis): Status: Acute Plan Assessment: 73-year-old lady initially admitted with diabetic ketoacidosis which resolved, but hospital course further complicated by AFib with RVR requiring transfer to the intensive care unit. Plan: Neuro: No acute issues. Cardiac: AFib with RVR poor response to initial IV albuterol/Cardizem, loaded with digoxin and amiodarone, now transitioned to p.o. amiodarone. Cardiology evaluation is pending. Continue Eliquis. Underlying history of right-sided chronic congestive heart failure. Pulmonary: No acute issues. Renal: Acute kidney injury secondary to diabetic ketoacidosis improved with hydration. Continue to monitor renal indices and urine output. Endo: No acute issues. GI: No acute issues. Underlying history of pancreatic mass undergoing workup. ID: No acute issues Heme/Onc: No acute issues. Psych: No acute issues. Miscellaneous: No acute issues. Prophylaxis: Heparin Diet: Diabetic Quality Stroke Does the patient have a stroke diagnosis?: No VTE Prior VTE?: No VTE Risk Level:: Medical - moderate - high VTE Device Contraindication: Treatment Not Indicated VTE Drug Contraindication: N/A - Med Ordered
[2023-10-18 11:19] LABS: Glucose, Whole Blood 261 mg/dL (60-115)
--- NOTE | 2023-10-18 14:53 | P.CONCA_ITS ---
History of Present Illness History of Present Illness Date of Service: 10/18/23 Requesting physician: Shabana Watson Chief complaint: Hyperglycemia, PAF Narrative: [age] year female who has background history of diabetes, pancreatic mass and atrial fibrillation for which she follows up at [facility]. She also has reported history of right-sided heart failure. No echocardiography seen in our system or at [facility]. She presented with DKA and was resuscitated and subsequently developed AFib with RVR. She was given IV Cardizem and was observed in the ICU. In the unit it appears she received some amiodarone and converted back to sinus rhythm. She is currently on 200 mg of amiodarone b.i.d.. She is on apixaban for anticoagulation. She is denying any chest pain or shortness of breath. Denying any palpitations. [facility] Past Medical History Medical History (Updated 10/17/23 @ 15:06 by Akil Jacob MD) Type 2 diabetes mellitus Pancreatic mass CHF (congestive heart failure) CKD (chronic kidney disease) Afib Family History Family History Father Prostate cancer Sister Breast cancer Social History Social History Household Members: Children Household Members Other:: Son lives upstairs (multi-family home) Housing: Other Housing Other:: two family house Do you presently have visiting nurse or other home services: Yes ([facility]) Alcohol intake: never Patient Tobacco Use Status: Never used Tobacco e-Cigarette/Vaping Use: Never Used Second Hand Smoke Exposure: No service: No Current occupational status: retired [employer] Allergies Allergy/AdvReac Type Severity Reaction Status Date / Time doxycycline Allergy Rash Verified 10/16/23 16:37 Active Medications: Current Medications Acetaminophen (Acetaminophen 325 Mg Tablet) 650 mg PO Q6H PRN PRN Reason: Pain, Mild (Pain Scale 1-3) Last Admin: 10/17/23 16:05 Dose: 650 mg Amiodarone HCl (Amiodarone Hcl 200 Mg Tablet) 200 mg PO BID [facility] Last Admin: 10/18/23 09:47 Dose: 200 mg Apixaban (Apixaban 5 Mg Tablet) 5 mg PO BID [facility] Last Admin: 10/18/23 07:51 Dose: 5 mg Diltiazem HCl (Diltiazem Hcl Cd 240 Mg Cap.Er.Deg) 240 mg PO DAILY [facility]; Protocol Last Admin: 10/18/23 07:50 Dose: 240 mg Furosemide (Furosemide 40 Mg Tablet) 40 mg PO BID@0900,1200 [facility]; Protocol Last Admin: 10/18/23 13:01 Dose: 40 mg Glucose (Glucose Gel 15 Gm Gel..Gram.) 15 gm PO Q15M PRN; Protocol PRN Reason: per Hypoglycemia Standing Ord. Dextrose (D10) 250 mls @ 750 mls/hr IV Q15M PRN; Protocol PRN Reason: per Hypoglycemia Standing Ord. Albumin Human (Kedbumin 25 %) 100 mls @ 100 mls/hr IV Q6H [facility] Stop: 10/19/23 03:29 Last Infusion: 10/18/23 11:17 Dose: Infused Insulin Glargine (Insulin Glargine,Hum.Rec.Anlog 100 Unit/Ml 10 Ml Vial) 12 unit SUBCUT BEDTIME [facility] Last Admin: 10/17/23 21:14 Dose: 12 unit Insulin Human Lispro (Insulin Lispro 100 Unit/Ml 3 Ml Vial) 0 unit SUBCUT QIDACHS [facility]; Protocol Last Admin: 10/18/23 13:00 Dose: 6 unit Melatonin (Melatonin 3 Mg Tablet) 6 mg PO BEDTIME PRN PRN Reason: Insomnia Metoprolol Tartrate (Metoprolol Tartrate 12.5 Mg Halftab) 37.5 mg PO BID [facility]; Protocol Last Admin: 10/18/23 07:51 Dose: 37.5 mg Ondansetron HCl (Ondansetron Hcl 4 Mg/2 Ml Vial) 4 mg IVPUSH Q8H PRN PRN Reason: Nausea and Vomiting Potassium Phos/Sodium Phos (Sodium,Potassium Phosphates Powd.Pack) 1 packet PO TID [facility] Sodium Chloride (0.9 % Sodium Chloride Flush 3 Ml Syringe) 3 ml IVFLUSH QSHIFT [facility] Last Admin: 10/18/23 07:49 Dose: 3 ml Home Medications ?Medication ?Instructions ?Recorded ?Confirmed ?Last Taken ?Type apixaban 5 mg tablet (Eliquis) 5 mg PO BID 09/25/23 10/16/23 10/16/23 History atorvastatin 10 mg tablet 10 mg PO BEDTIME 09/25/23 10/16/23 10/15/23 History diltiazem HCl 240 mg 240 mg PO DAILY 09/25/23 10/16/23 10/16/23 History capsule,extended release 24 hr empagliflozin 25 mg-metformin ER 1 tab PO DAILY 09/25/23 10/16/23 10/16/23 History 1,000 mg tablet,extended release 24hr (Synjardy XR) furosemide 40 mg tablet 40 mg PO BID@0900,1200 09/25/23 10/16/23 10/16/23 History metoprolol tartrate 25 mg tablet 37.5 mg PO BID 09/25/23 10/16/23 10/16/23 History insulin glargine 100 unit/mL (3 10 unit subcut BEDTIME 10/16/23 10/16/23 Unknown History mL) subcutaneous pen (Lantus Solostar U-100 Insulin) Physical Exam 2 Vital Signs: Vital Signs: Last Vital Signs Temp 99.0 F 10/18/23 12:00 Pulse 85 10/18/23 12:00 Resp 16 10/18/23 12:00 BP 105/50 L 10/18/23 13:01 Pulse Ox 99 10/18/23 12:00 O2 Del Method Room Air 10/18/23 12:00 O2 Flow Rate 1 10/18/23 10:00 BMI result Body Mass Index 26.8 GENERAL APPEARANCE: in no acute distress, ill-appearing. NECK: no carotid bruit, no jugular venous distention. SKIN: no suspicious lesions, warm and dry. HEART: no murmurs, regular rate and rhythm. LUNGS: clear to auscultation bilaterally. ABDOMEN: soft, nontender. EXTREMITIES: no edema. PERIPHERAL PULSES: equal. NEUROLOGIC: No gross deficits, AAO X 3 Objective Labs and Meds 10/18/23 05:19 10/18/23 05:19 Lab results: Laboratory Results - last 24 hr 10/17/23 10/17/23 10/17/23 13:14 13:20 13:48 WBC RBC Hgb Hct MCV MCH MCHC RDW Plt Count MPV Immature Gran % (Auto) Neut % (Auto) Lymph % (Auto) [place] % (Auto) Eos % (Auto) Baso % (Auto) Lymph # (Auto) [place] # (Auto) Eos # (Auto) Baso # (Auto) Abs Immat Gran (auto) Absolute Neuts (auto) Absolute Nucleated RBC Nucleated RBC % (auto) Smear Tech's Comments VBG pH VBG pCO2 VBG pO2 VBG HCO3 VBG O2 Saturation VBG Base Excess Sodium Potassium Chloride Carbon Dioxide Anion Gap BUN Creatinine Estim Creat Clear Calc Estimated GFR POC Glucose 213 H 214 H 201 H Random Glucose Lactic Acid F/U @ 2Hr Calcium Phosphorus Magnesium Total Bilirubin AST ALT Alkaline Phosphatase Total Protein Albumin 10/17/23 10/17/23 10/17/23 15:07 16:23 16:40 WBC RBC Hgb Hct MCV MCH MCHC RDW Plt Count MPV Immature Gran % (Auto) Neut % (Auto) Lymph % (Auto) [place] % (Auto) Eos % (Auto) Baso % (Auto) Lymph # (Auto) [place] # (Auto) Eos # (Auto) Baso # (Auto) Abs Immat Gran (auto) Absolute Neuts (auto) Absolute Nucleated RBC Nucleated RBC % (auto) Smear Tech's Comments VBG pH VBG pCO2 VBG pO2 VBG HCO3 VBG O2 Saturation VBG Base Excess Sodium Potassium Chloride Carbon Dioxide Anion Gap BUN Creatinine Estim Creat Clear Calc Estimated GFR POC Glucose 214 H 219 H Random Glucose Lactic Acid F/U @ 2Hr 1.6 Calcium Phosphorus Magnesium Total Bilirubin AST ALT Alkaline Phosphatase Total Protein Albumin 10/17/23 10/17/23 10/18/23 17:54 21:00 05:19 WBC 2.5 L RBC 3.11 L Hgb 9.5 L Hct 29.0 L MCV 93.2 MCH 30.5 MCHC 32.8 RDW 18.6 H Plt Count 94 L MPV 10.4 Immature Gran % (Auto) 0.4 Neut % (Auto) 84.5 H Lymph % (Auto) 8.2 L [place] % (Auto) 6.5 Eos % (Auto) 0.0 Baso % (Auto) 0.4 Lymph # (Auto) 0.2 L [place] # (Auto) 0.2 Eos # (Auto) 0.0 Baso # (Auto) 0.0 Abs Immat Gran (auto) 0.01 Absolute Neuts (auto) 2.1 Absolute Nucleated RBC 0.000 Nucleated RBC % (auto) 0.0 Smear Tech's Comments VERIFIED VBG pH VBG pCO2 VBG pO2 VBG HCO3 VBG O2 Saturation VBG Base Excess Sodium 133 L 131 L Potassium 4.2 4.0 Chloride 102 102 Carbon Dioxide 18 L 17 L Anion Gap 17 16 BUN 24 H 23 H Creatinine 1.04 1.01 Estim Creat Clear Calc 41.0 42.2 Estimated GFR 52 54 POC Glucose 266 H Random Glucose 283 H 172 H Lactic Acid F/U @ 2Hr Calcium 8.0 L 7.9 L Phosphorus 2.1 L Magnesium 2.0 Total Bilirubin 1.4 H AST 53 H ALT 55 H Alkaline Phosphatase 134 H Total Protein 5.0 L Albumin 2.4 L 10/18/23 10/18/23 10/18/23 05:22 07:21 11:15 WBC RBC Hgb Hct MCV MCH MCHC RDW Plt Count MPV Immature Gran % (Auto) Neut % (Auto) Lymph % (Auto) [place] % (Auto) Eos % (Auto) Baso % (Auto) Lymph # (Auto) [place] # (Auto) Eos # (Auto) Baso # (Auto) Abs Immat Gran (auto) Absolute Neuts (auto) Absolute Nucleated RBC Nucleated RBC % (auto) Smear Tech's Comments VBG pH 7.46 H VBG pCO2 28 VBG pO2 43 VBG HCO3 20 L VBG O2 Saturation 78.0 VBG Base Excess -2.3 Sodium Potassium Chloride Carbon Dioxide Anion Gap BUN Creatinine Estim Creat Clear Calc Estimated GFR POC Glucose 174 H 261 H Random Glucose Lactic Acid F/U @ 2Hr Calcium Phosphorus Magnesium Total Bilirubin AST ALT Alkaline Phosphatase Total Protein Albumin Assessment and Plan (1) Atrial fibrillation with RVR: Status: Acute Plan [age] year female with paroxysmal atrial fibrillation in setting of DKA on background of reported right heart failure. Clinically she does not have any signs/symptoms of right heart failure currently. Back in sinus rhythm at this point. She was given some digoxin load as well as Cardizem boluses yesterday. She is on Cardizem 240 mg currently along with metoprolol tartrate 37.5 mg twice a day as well as amiodarone 200 mg twice a day. I think diltiazem should be cut down to 120 mg daily. Anticoagulation with apixaban. ECHO to assess LV/RV function. Thank you for allowing me to participate in the care of your patient. Please feel free to contact me if you have any questions. Procedures Date of Service Date of Service: 10/18/23
[2023-10-18 16:10] LABS: Glucose, Whole Blood 252 mg/dL (60-115)
--- NOTE | 2023-10-18 16:22 | HO.WOUND ---
Wound Consult: Initial 73yr old?female admitted to [facility] on 10/17/23 - See progress notes and H&P for detailed history.? Wound consult placed for Right Foot wound.? Patient agreeable to assessment and photo documentation.? Sacrum Etiology: Deep Tissue Injury ?Present on Admission Wound Bed: purple nonblanchable tissue intact - scattered over sacrum Drainage / Odor: None Edges: ? irregular Ronda wound: pink blanchable tissue ? No Induration, Fluctuance or Warmth noted Pain: denies Goals of Treatment: ? Foam dressing to protect from friction and moisture Right Plantar Foot Etiology: Diabetic Foot Wound Wound Bed: pink red moist wound bed with inferior necrotic tissue noted Drainage / Odor: None Edges: ? irregular and callused Ronda wound: thickly callused tissue No Induration, Fluctuance or Warmth noted Pain: denies reports neuropathy Goals of Treatment: ? Durafiber for moisture management with antimicrobial properties Recommendations: 1. Turn and Reposition every 2 hours and as needed for patient comfort.? Use pillows or wedges to support off loading positions. 2. Off Load all bony prominences with use of pillows and heel boots if needed.? Apply Preventative foams where needed. ? 3. Monitor for incontinence and moisture control, use barrier creams when needed for prevention and treatment. 4. Provide adequate and supplemental nutrition.? 5. Order low air loss mattress. 6. When applicable maintain blood glucose levels per Providers order. 7. Sacrum - Routine cleanseing - apply sacral foam dressing - peel back and assess Q shift and change every 3 days and PRN. 8. Right Plantar Foot - Cleanse with wound wash, pat dry. Apply cut to size Durafiber AG lightly packed into wound bed. Cover with dry gauze, ABD pad and gauze wrap. Change every other day. Recommend continued follow up out patient Wound Clinic at [address] [place] [id number] and to call for an appointment at time of discharge. [phone].? Re-consult wound care Nurse for wound deterioration or wound changes.
[2023-10-18] MEDS: Sodium,Potassium Phosphates POWD.PACK 1 PACKET PO ×2 (16:49→21:30)
[2023-10-18 20:28] LABS: Glucose, Whole Blood 296 mg/dL (60-115)
[2023-10-18] MEDS: Insulin Glargine,Hum.rec.anlog 100 UNIT/ML 10 ML VIAL 12 UNIT SUBCUT (21:30)
[2023-10-19] VITALS (9 sets, daily range): BP systolic 103–140; BP diastolic 52–70; PULSE 89–117; RESP 16–20; TEMP 36–37.7; O2SAT 94–97; BMI 26.8
[2023-10-19] MEDS: Albumin Human 25 % 100 ML IV (01:36)
[2023-10-19 06:33] LABS: Basophils Percent Auto 0.4 % (0-2); Eosinophils Percent Auto 0.4 % (0-4); Hematocrit 24.7 % (37.0-47.0); Hemoglobin 8.4 g/dl (12.0-16.0); Imm Gran Abs Auto 0.01 X10*3/uL (0.00-0.03); Imm Gran Pct Auto 0.4 % (0.0-0.4); Lymphocytes Absolute Auto 0.4 X10*3/uL (1.2-4.9); Lymphocytes Percent Auto 15.4 % (20-40); MANUAL DIFF FLAG SCAN; Mean Corpuscular Hemoglobin 31.3 pg (27.0-33.0); Mean Corpuscular Volume 92.2 fL (80.0-98.0); Mean Platelet Volume 10.6 fL (9.4-12.3); Monocytes Absolute Auto 0.3 X10*3/uL (0.1-1.2); Monocytes Percent Auto 9.8 % (2-11); Neutrophils Absolute Auto 2.1 x10*3/uL (2.0-8.3); Neutrophils Percent Auto 73.6 % (45-73); Red Blood Count 2.68 X10*6/uL (4.20-5.50); Red Cell Distribution Width 18.3 % (11.0-16.0); SCAN SMEAR FLAG 1; White Blood Count 2.9 X10*3/uL (4.8-10.8)
[2023-10-19 06:37] LABS: Platelet Count 77 X10*3/uL (160-400)
[2023-10-19 06:49] LABS: Albumin Level 3.4 g/dL (3.5-5.0); Anion Gap 16 (12-20); Blood Urea Nitrogen 21 mg/dL (9-16); Calcium 8.6 mg/dL (8.4-10.2); Carbon Dioxide 20 mmol/L (22-29); Chloride 100 mmol/L (96-108); Creatinine Clr Calc Pharmacy 45.8; Estimated Glomerular Filt Rate 52; Glucose Random 186 mg/dL (60-115); Magnesium 2.1 mg/dL (1.6-2.6); Phosphorus 2.3 mg/dL (2.7-4.5); Potassium 3.2 mmol/L (3.3-5.1); Sodium 133 mmol/L (135-145)
--- NOTE | 2023-10-19 07:00 | CA_ITS ---
Transthoracic Echocardiogram Patient (Last, First, Middle): Doris Tavarez, Gender: Female Date of : 1950 Age: 73 Procedure Date: 10/19/2023 Procedure Type: Transthoracic Echocardiogram Location: [facility] [place] Height: 162.56 cm Weight: 70.76 kg BSA: 1.76 m2 Heart Rate: bpm BP: 108 / 56 mmHg Collection Agent: TO Referring MD: Shabana Watson MD Symptoms: at fib rvr Study Quality: Technically Difficult/contrast Conclusions: - Normal left ventricular size, thickness, systolic function, and wall motion. The visually estimated ejection fraction is between 60-65%. There is no evidence of regional wall motion abnormalities. Diastolic function is indeterminate on the basis of available data. - Mildly increased right ventricular cavity size. There is mildly decreased right ventricular systolic function. - The left atrium is mildly dilated. The right atrium is normal in size. - There is mild dilatation of the sinuses of Valsalva measuring 3.76 cm and mild dilatation of the ascending aorta measuring 3.60 cm. Findings Procedure Information Contrast agent, definity, is being given per protocol without apparent complications. Left Ventricle Normal left ventricular size, thickness, systolic function, and wall motion. The visually estimated ejection fraction is between 60-65%. There is no evidence of regional wall motion abnormalities. Diastolic function is indeterminate on the basis of available data. Right Ventricle Mildly increased right ventricular cavity size. There is mildly decreased right ventricular systolic function. Atria The left atrium is mildly dilated. The right atrium is normal in size. Aortic Valve Normal aortic valve structure and function. There is no aortic valve stenosis. There is no aortic valve regurgitation. Mitral Valve Normal mitral valve structure and function. There is no mitral valve regurgitation. There is no mitral valve stenosis. Pulmonic Valve The pulmonic valve is normal. There is trace pulmonic valve regurgitation. Tricuspid Valve Normal tricuspid valve structure. There is mild tricuspid valve regurgitation. Normal right atrial pressure. There is no evidence of pulmonary hypertension. Great Vessels There is mild dilatation of the sinuses of Valsalva measuring 3.76 cm and mild dilatation of the ascending aorta measuring 3.60 cm. The visualized portions of the pulmonary artery and branches are normal. Venous The inferior vena cava is normal in size and collapses greater than 50% with inspiration. Pericardium/Pleural There is no evidence of pericardial effusion. Measurements 2D Linear Measurements IVSd: 1.03 0.6-0.9/0.6-1.0 cm LVIDd: 4.42 3.9-5.3/4.2-5.9 cm LVIDd Index: 2.51 2.4-3.2/2.2-3.1 cm/m2 LVIDs: 2.65 2.0-3.6 cm LVPWd: 0.81 0.7-1.1 cm LV Mass: 165.20 67-162/88-224 g LV Mass Index: 93.86 43-95/49-115 g/m2 LVOT Diam: 2.10 3.0+(-)1.3 cm Mitral Valve MV Pk E: 0.83 MV Decel Time: 178.00 E'Lateral: 10.10 E'Medial: 7.87 E/E' Med: 10.50 E/E' Lat: 8.20 PHT: 52.00 MVA PHT: 4.23 Decel Ward: 4.88 Aortic Valve AoV Pk Bora: 1.57 AoV Mn Bora: 1.05 AoV VTI: 0.22 AoV Pk Grad: 10.00 Aov Mn Grad: 5.00 JAVIER Cont.VTI: 2.51 LVOT LVOT Pk Bora: 1.25 LVOT Mn Bora: 0.75 LVOT VTI: 0.16 LVOT Pk Grad: 6.00 LVOT Mn Grad: 3.00 LVOT Diam: 2.10 LVOT Area: 3.46 Diastolic Function MV Pk E: 0.83 E'Medial: 7.87 E/E' Med: 10.50 E' Laterial: 10.10 E/E' Lat: 8.20 Right Ventricle TAPSE (mm): 14.90 TVS' Bora: 11.50 Tricuspid Valve TR Pk Bora: 2.50 TR Pk Grad: 25.00 RA Press: 3.00 RVSP: 28.00 Great Vessels Aorta Sinus of Valsalva: 3.76 2.0-3.5 cm Ao Asc: 3.60 2.1-3.4 cm Updated in Other Vendor System with Status of Final Cj Rider MD electronically signed on 10/19/2023 4:09:50 PM with status of Final
[2023-10-19 07:29] LABS: SLIDE REVIEW VERIFIED
[2023-10-19 07:54] LABS: Glucose, Whole Blood 189 mg/dL (60-115)
[2023-10-19] MEDS: Amiodarone HCL 200 MG TABLET PO (08:40)
[2023-10-19] MEDS: Sodium,Potassium Phosphates POWD.PACK 1 PACKET PO ×3 (08:40→21:36)
[2023-10-19] MEDS: Insulin Lispro 100 UNIT/ML 3 ML VIAL SUBCUT ×4 (08:41→22:29)
[2023-10-19] MEDS: 0.9 % Sodium Chloride Flush 3 ML SYRINGE IVFLUSH ×3 (08:42→21:37)
--- NOTE | 2023-10-19 09:26 | PM.HEMONCCN ---
Subjective - Subjective Chief complaint: Consult for: Pancytopenia. 2. Pancreatic mass. Patient: known to practice within the last 3 years Consult date: 10/19/23 Requesting Physician: Shirley. Primary Care Provider: Danyell Glass MD Family Provider: Danyell Salas. Medical Summary: DIAGNOSIS: PANCYTOPENIA. PANCREATIC MASS. HPI - Consult Narrative Reason for consult: Consult for: 1. Pancreatic mass. 2. Pancytopenia. Narrative: Doris Tavarez is a 73 year old lady admitted on 10/15 with DKA. She presented for evaluation of elevated blood sugars. Patient states she [facility] as her blood sugar was found to be high. She was prescribed insulin by PCP but patient has not started it yet. Patient woke up on the ground this morning, states she must have passed out last night while going to the bathroom. Does not remember if she had dizziness or lightheadedness prior to passing out. No chest discomfort or palpitations. No rhythmic jerking movement of extremities. Patient does admit that she has been thirsty and peeing more often over the last few days. No nausea, vomiting or diarrhea. No fever, chills, chest discomfort, shortness of breath, abdominal pain, changes in bowel habits. Of note, patient was recently admitted on 09/25/2023 and discharged on 09/28/2023 with obstructive painless jaundice. Imaging with pancreatic mass. ERCP was done with stent placement by Gastroenterology and biopsy was taken. Patient followed up with Oncology and biopsy brushings noted to be negative. Patient is scheduled for outpatient follow-up with [facility] for endoscopic ultrasound guided biopsy and Oncology outpatient follow-up for systemic chemotherapy. In the emergency department, patient was found to be in DKA and initiated on IV insulin. Gap was closed and hospital medicine team was contacted. Review of Systems Constitutional: Constitutional: Reports fatigue and Reports weakness Cardiovascular: Cardiovascular: Reports no additional cardiovascular complaints and Reports syncope Respiratory: Respiratory: Reports no additional respiratory complaints Gastrointestinal: Gastrointestinal: Reports no additional gastrointestinal complaints Genitourinary: Genitourinary: Reports no additional female genitourinary complaints Neurologic: Reports syncope and Reports weakness Endocrine: Endocrine: Reports fatigue, Reports polydipsia and Reports polyuria [facility] Medical History: Insulin-dependent diabetes mellitus, paroxysmal atrial fibrillation on Eliquis, chronic right-sided heart failure, chronic kidney disease stage 2, peripheral vascular disease Pancreatic mass CHF (congestive heart failure) CKD (chronic kidney disease) Afib Family History: Father Prostate cancer Sister Breast cancer Social History: Consult for Review of Systems - Constitutional Reports no additional constitutional complaints - Eyes Reports no additional eye complaints - ENT Reports no additional ear, nose, mouth, and throat complaints - Cardiovascular Reports no additional cardiovascular complaints - Respiratory Reports no additional respiratory complaints - Gastrointestinal Reports no additional gastrointestinal complaints - Genitourinary Reports no additional female genitourinary complaints - Musculoskeletal Reports no additional musculoskeletal complaints - Integumentary/Breasts Skin/Breast: Reports no additional skin complaints - Neurologic Reports syncope, Reports weakness - Psychiatric Reports no additional psychiatric complaints - Endocrine Reports no additional endocrine complaints - Hematologic/Lymphatic Reports no additional hematologic/lymphatic complaints - Allergic/Immunologic Reports no additional allergic/immunologic complaints Oncology Screenings - ECOG Performance Status ECOG Performance Status: 2 [facility] Medical History: Medical History (Last Reviewed 10/17/23 @ 12:36 by Brittnee West PT) Afib CHF (congestive heart failure) CKD (chronic kidney disease) Pancreatic mass Type 2 diabetes mellitus Functional capacity: wheelchair bound Patient : No Family History: Family History (Last Reviewed 10/16/23 @ 23:53 by Meg Kovacs MD) Father Prostate cancer Sister Breast cancer Social History: Social History (Last Reviewed 10/16/23 @ 23:53 by Meg Kovacs MD) Living Situation History: Household Members: Children Household Members Other:: Son lives upstairs (multi-family home) Housing: Other Housing Other:: two family house Do you presently have visiting nurse or other home services: Yes Do you presently have visiting nurse or other home services comment: [facility] Tobacco History: Patient Tobacco Use Status: Never used Tobacco e-Cigarette/Vaping Use: Never Used Second Hand Smoke Exposure: No Occupation Assessmet: service: No Current occupational status: retired Home Medications and Allergies Current Medications: Current Medications Acetaminophen (Acetaminophen 325 Mg Tablet) 650 mg PO Q6H PRN PRN Reason: Pain, Mild (Pain Scale 1-3) Last Admin: 10/17/23 16:05 Dose: 650 mg Amiodarone HCl (Amiodarone Hcl 200 Mg Tablet) 200 mg PO BID ZENY Last Admin: 10/19/23 08:40 Dose: 200 mg Diltiazem HCl (Diltiazem Hcl Cd 120 Mg Cap.Er.Deg) 120 mg PO DAILY [facility]; Protocol Last Admin: 10/19/23 08:43 Dose: Not Given Furosemide (Furosemide 40 Mg Tablet) 40 mg PO BID@0900,1200 [facility]; Protocol Last Admin: 10/19/23 08:43 Dose: Not Given Glucose (Glucose Gel 15 Gm Gel..Gram.) 15 gm PO Q15M PRN; Protocol PRN Reason: per Hypoglycemia Standing Ord. Dextrose (D10) 250 mls @ 750 mls/hr IV Q15M PRN; Protocol PRN Reason: per Hypoglycemia Standing Ord. Insulin Glargine (Insulin Glargine,Hum.Rec.Anlog 100 Unit/Ml 10 Ml Vial) 12 unit SUBCUT BEDTIME [facility] Last Admin: 10/18/23 21:30 Dose: 12 unit Insulin Human Lispro (Insulin Lispro 100 Unit/Ml 3 Ml Vial) 0 unit SUBCUT QIDACHS [facility]; Protocol Last Admin: 10/19/23 08:41 Dose: 2 unit Melatonin (Melatonin 3 Mg Tablet) 6 mg PO BEDTIME PRN PRN Reason: Insomnia Metoprolol Tartrate (Metoprolol Tartrate 12.5 Mg Halftab) 37.5 mg PO BID [facility]; Protocol Last Admin: 10/19/23 08:43 Dose: Not Given Ondansetron HCl (Ondansetron Hcl 4 Mg/2 Ml Vial) 4 mg IVPUSH Q8H PRN PRN Reason: Nausea and Vomiting Potassium Phos/Sodium Phos (Sodium,Potassium Phosphates Powd.Pack) 1 packet PO TID [facility] Last Admin: 10/19/23 08:40 Dose: 1 packet Sodium Chloride (0.9 % Sodium Chloride Flush 3 Ml Syringe) 3 ml IVFLUSH QSHIFT [facility] Last Admin: 10/19/23 08:42 Dose: 3 ml Home Medications ?Medication ?Instructions ?Recorded ?Confirmed ?Type apixaban 5 mg tablet (Eliquis) 5 mg PO BID 09/25/23 10/16/23 History atorvastatin 10 mg tablet 10 mg PO BEDTIME 09/25/23 10/16/23 History diltiazem HCl 240 mg 240 mg PO DAILY 09/25/23 10/16/23 History capsule,extended release 24 hr empagliflozin 25 mg-metformin ER 1 tab PO DAILY 09/25/23 10/16/23 History 1,000 mg tablet,extended release 24hr (Synjardy XR) furosemide 40 mg tablet 40 mg PO BID@0900,1200 09/25/23 10/16/23 History metoprolol tartrate 25 mg tablet 37.5 mg PO BID 09/25/23 10/16/23 History insulin glargine 100 unit/mL (3 10 unit subcut BEDTIME 10/16/23 10/16/23 History mL) subcutaneous pen (Lantus Solostar U-100 Insulin) Allergies Allergy/AdvReac Type Severity Reaction Status Date / Time doxycycline Allergy Rash Verified 10/16/23 16:37 Physical Exam Vital signs: Vital Signs Temp 97.8 F 10/19/23 07:17 Pulse 98 10/19/23 07:40 Resp 16 10/19/23 07:17 BP 109/52 L 10/19/23 07:40 Pulse Ox 95 10/19/23 07:40 O2 Del Method Room Air 10/19/23 07:17 O2 Flow Rate 1 10/18/23 10:00 Intake & Output 10/18/23 10/19/23 10/19/23 18:59 06:59 18:59 Intake Total 807.148 / 1007.148 200 / 1007.148 Output Total 1200 / 1750 550 / 1750 Balance -392.852 / -742.852 -350 / -742.852 Urine Output (Average ml/kg/hr) 1.41 0.65 Intake: Intake, Oral Amount 240 / 240 Intake, IV Amount 567.148 / 767.148 200 / 767.148 Albumin Human 25 % 100 ml @ 100 200 / 400 200 / 400 mls/hr IV Q6H [facility] Rx#: [id number] Potassium Phosphate/NS 15 mmol 250 / 250 In 250 ml @ 62.5 mls/hr IV ONCE ONE Rx#:[id number] Amiodarone HCL 900 mg In 0.9 % 117.148 / 117.148 Sodium Chloride 500 ml @ 1 MG/ MIN 34.533 mls/hr IVCONT . Q15H1M [facility] Rx#:[id number] Output: Output, Urine Amount 800 / 1350 550 / 1350 Output, Urine Amount (Catheter) 400 / 400 Female External 400 / 400 Other: Breakfast % Eaten 50% Urine purewick purewick Urine Color Yellow Rika Last Bowel Movement 10/15/23 Weight 70.9 kg Hem/Onc Consult Result - Labs CBC & Chem 7: 10/21/23 05:56 10/21/23 05:56 Labs: Short CBC 10/19/23 Range/Units 06:00 WBC 2.9 L (4.8-10.8) X10*3/uL Hgb 8.4 L (12.0-16.0) g/dl Hct 24.7 L (37.0-47.0) % Plt Count 77 L (160-400) X10*3/uL BMP 10/19/23 06:00 Sodium 133 L Potassium 3.2 L Chloride 100 Carbon Dioxide 20 L BUN 21 H Creatinine 1.04 Calcium 8.6 D Liver Function 10/19/23 Range/Units 06:00 Albumin 3.4 L (3.5-5.0) g/dL Assessment and Plan Patient Active problem list reviewed?: Yes (1) Pancytopenia Status: Acute Assessment and plan: Doris Tavarez is a 73 year old presented with painless jaundice. She had presented with painless jaundice. She mentioned that over the past month or so she had a decreased appetite, and lost 5 lbs of weight. She reported generalized weakness. Patient denies any fever abdominal pain. This was initially attributed to right diabetic foot wound for which he was treated with 10 days of levofloxacin. However symptoms persisted with worsening yellowing of skin, came to ED by request of her son. In ED found to have elevated bilirubin and transaminases. LFTs: 18.02/1550/374/432. Abdominal ultrasound from 09/24: suspicious for pancreatic mass. 1. A 4.3 cm pancreatic head mass is seen. There is secondary dilatation of the pancreatic duct, the common bile duct and the intrahepatic ductal system. Recommend further evaluation with CT or MRI (pancreatic mass protocol). 2. The gallbladder is surgically absent. 3. There is mild right hydronephrosis. CT scan of the abdomen pelvis from 09/24 revealed: There is a mass in the region of the pancreatic head which causes the double duct sign with obstruction of the pancreatic and bile duct. Possibilities should include adenocarcinoma of the pancreas. Cholangiocarcinoma of the distal common bile duct is possible. Primary small bowel malignancy felt much less likely. She underwent an ERCP with stent placement on 09/[address] Cruz. Procedure note: The ampulla was slightly stenosed and bulging noted behind it. Several attempts made to access bile duct unsuccessful so needle knife used after which biliary access was gained. A cholangiogram revealed a markedly dilated proximal CBD and distal biliary stricture maybe about 4 cm long. After a sphincterotomy was performed a 8 mm x 4 cm hurricaone balloon was used to dilated the stricture with a gush of bile and Iv contrast then flowing through. bilairy brushings for cytology and FISH testing and biospy were taken. A 8.5 mm x 9 cm stent was then placed with good position confirmed by fluoroscopy. Brushings were: Negative. CEA: 14.60. CA [id number]. LFTs from 09/27: 6.01/1434/141/307. 10/08: LFTs: 2.5/423/22/57. Her liver numbers are declining. She now presents with DKA. She was noted to be in AFib. She was given some digoxin load as well as Cardizem boluses yesterday. She is on Cardizem 240 mg currently along with metoprolol tartrate 37.5 mg twice a day as well as amiodarone 200 mg twice a day. Back in sinus rhythm at this point. Anticoagulation with apixaban. The diltiazem will be cut down to 120 mg daily. She does not have any signs/symptoms of right heart failure. Chest x-ray from 10/15: 1. No focal infiltrate or congestive heart failure is seen. 2. There is mild left base linear scar/subsegmental atelectasis. The plan is to check ECHO to assess LV/RV function. She has developed progressive pancytopenia over the past few days. Serial CBC: 10/15: WBC 4.5, HGB 11.6, HCT 34.9, PLT 170. 5/8: WBC 3.1, HGB 9.8, HCT 30.7, PLT 138. 5/9: WBC 2.5, HGB 9.5, HCT 29, PLT 94. 5/10: WBC 2.9, HGB 8.4, HCT 24.7, PLT 77. LFTs: 10/15: 2/217/102/73. 5/10: 1.4/134/53/55. The pancytopenia appears to be rather acute. DIFFERENTIAL DIAGNOSIS: 1. Anemia: DKA itself can cause Anemia and thrombocytopenia. Hypophosphatemia can cause hemolytic anemia. Can also be dilutional on the basis of all the fluid she has received to correct the DKA. 2. Leukopenia and thrombocytopenia could be medication related. 3. Related to infection: She is suffering from a wound infection. 4. Drugs that are known to be implicated: Amiodarone and Lasix. There has been case reports of Lasix cause profound leukopenia & thrombocytopenia. The Lasix has been discontinued. She does need the amiodarone even though she is now back in sinus rhythm. 4. DIC: Related to sepsis versus pancreatic cancer. 5. Myelo-infiltrative Disorder: Less likely, since the drop is rather acute. Her counts are not terribly low. She is quite asymptomatic. I do expect the counts to reverse over the next few days. PLAN: Will check hemolytic screen: Retic 2.8, LDH 201, Hapto:pending. Check DIC Screen. PT 14.4, PTT 30.1, Fibrinogen >700, D dimer 732. (ruled out.) I would follow her blood count carefully over time. Expect it to improve over next few days. Will proceed with further evaluation, if it does not improve over the next couple of days. Thank you for the consult, I will follow along with you, CC: Dr. Danyell Salas. - Time Spent With Patient Time Spent with Patient (in minutes): 30
--- NOTE | 2023-10-19 11:18 | P.PNCA_ITS ---
Subjective Subjective Date of Service: 10/19/23 Interval history: Seen examined at bedside. Denying any symptoms. Blood pressure has been soft and Cardizem has been discontinued. Physical Exam Vital Signs: Last Vital Signs Temp 97.2 F 10/19/23 11:16 Pulse 100 10/19/23 11:16 Resp 16 10/19/23 11:16 BP 108/56 L 10/19/23 11:16 Pulse Ox 97 10/19/23 11:16 O2 Del Method Room Air 10/19/23 11:16 O2 Flow Rate 1 10/18/23 10:00 BMI result Body Mass Index 26.8 GENERAL APPEARANCE: in no acute distress, ill-appearing. NECK: no carotid bruit, no jugular venous distention. SKIN: no suspicious lesions, warm and dry. HEART: Holosystolic murmur left sternal border, regular rate and rhythm. LUNGS: clear to auscultation bilaterally. ABDOMEN: soft, nontender. EXTREMITIES: no edema. PERIPHERAL PULSES: equal. NEUROLOGIC: No gross deficits, AAO X 3 Objective Labs and Meds 10/19/23 06:00 10/19/23 06:00 Lab results: Laboratory Results - last 24 hr 10/18/23 10/18/23 10/18/23 11:15 15:54 20:25 WBC RBC Hgb Hct MCV MCH MCHC RDW Plt Count MPV Immature Gran % (Auto) Neut % (Auto) Lymph % (Auto) [place] % (Auto) Eos % (Auto) Baso % (Auto) Lymph # (Auto) [place] # (Auto) Eos # (Auto) Baso # (Auto) Abs Immat Gran (auto) Absolute Neuts (auto) Absolute Nucleated RBC Nucleated RBC % (auto) Smear Tech's Comments Sodium Potassium Chloride Carbon Dioxide Anion Gap BUN Creatinine Estim Creat Clear Calc Estimated GFR POC Glucose 261 H 252 H 296 H Random Glucose Calcium Phosphorus Magnesium Albumin 10/19/23 10/19/23 06:00 07:46 WBC 2.9 L RBC 2.68 L Hgb 8.4 L Hct 24.7 L MCV 92.2 MCH 31.3 MCHC 34.0 RDW 18.3 H Plt Count 77 L MPV 10.6 Immature Gran % (Auto) 0.4 Neut % (Auto) 73.6 H Lymph % (Auto) 15.4 L [place] % (Auto) 9.8 Eos % (Auto) 0.4 Baso % (Auto) 0.4 Lymph # (Auto) 0.4 L [place] # (Auto) 0.3 Eos # (Auto) 0.0 Baso # (Auto) 0.0 Abs Immat Gran (auto) 0.01 Absolute Neuts (auto) 2.1 Absolute Nucleated RBC 0.000 Nucleated RBC % (auto) 0.0 Smear Tech's Comments VERIFIED Sodium 133 L Potassium 3.2 L Chloride 100 Carbon Dioxide 20 L Anion Gap 16 BUN 21 H Creatinine 1.04 Estim Creat Clear Calc 45.8 Estimated GFR 52 POC Glucose 189 H Random Glucose 186 H Calcium 8.6 D Phosphorus 2.3 L Magnesium 2.1 Albumin 3.4 L Progress Note: A&P Assessment and plan (1) PAF (paroxysmal atrial fibrillation): Status: Acute Plan Pleasant 73 year female with paroxysmal atrial fibrillation on background of reported right heart failure. She has tricuspid regurgitation on examination. We do not have any echocardiography assessment in our system. We will get an echocardiogram. Stop the Cardizem. Continue amiodarone and metoprolol. Amio can be changed to 200 mg daily in 10 days. Thank you for allowing me to participate in the care of your patient. Please feel free to contact me if you have any questions. Time Spent With Patient Time: Total time managing care of this patient today ____ minutes. Progress Note: Quality Stroke Does the patient have a stroke diagnosis?: No Procedures Date of Service Date of Service: 10/19/23
[2023-10-19 11:23] LABS: Glucose, Whole Blood 320 mg/dL (60-115)
--- NOTE | 2023-10-19 12:15 | MHC.CLN ---
PT WITH INCREASED NUTRITION RISK R/T PRESSURE INJURY PO INTAKE 50% X2 MEALS DIET RX: 1800DM -APPROPRIATE PT RECEIVING ENSURE MAX BID TO PROMOTE WOUND HEALING SUPP PROVIDES 300KCALS, 60G PROTEIN MONITOR PO INTAKE AND ENCOURAGE SUPPLEMENTS SEE ALSO FULL CLINICAL NUTRITION ASSESSMENT
--- NOTE | 2023-10-19 14:35 | P.PNIM_ITS ---
Subjective Subjective Date of Service: 10/19/23 Interval History: Being followed for hyperglycemia and atrial fibrillation with RVR. Patient offers no acute complaints denies chest pain, no shortness a breath, no palpitations, no lightheadedness, no dizziness noted to have drop in hematocrit platelets and WBC, patient denies hematemesis, no melena, no easy bruisability, no nosebleeds. Review of Systems All other system reviewed and negative Physical Exam 2 Vital Signs: Vital Signs: Last Vital Signs Temp 97.2 F 10/19/23 11:16 Pulse 100 10/19/23 11:16 Resp 16 10/19/23 11:16 BP 108/56 L 10/19/23 11:16 Pulse Ox 97 10/19/23 11:16 O2 Del Method Room Air 10/19/23 11:16 O2 Flow Rate 1 10/18/23 10:00 BMI result Body Mass Index 26.8 Const: Other: General resting comfortably in no acute distress. Neck is supple no JVD. CVS irregular rate rhythm, Respiratory lungs clear to auscultation, no respiratory distress, no wheeze, no rhonchi. Gastrointestinal abdomen soft, non tender, bowel sounds audible. Extremities no edema. Neuro non focal Skin no rash psyche appropriate affect Objective Data Active Medications Acetaminophen (Acetaminophen 325 Mg Tablet) 650 mg PO Q6H PRN PRN Reason: Pain, Mild (Pain Scale 1-3) Last Admin: 10/17/23 16:05 Dose: 650 mg Documented By: GURINDER Amiodarone HCl (Amiodarone Hcl 200 Mg Tablet) 200 mg PO BID [facility] Last Admin: 10/19/23 08:40 Dose: 200 mg Documented By: DOLLY Glucose (Glucose Gel 15 Gm Gel..Gram.) 15 gm PO Q15M PRN; Protocol PRN Reason: per Hypoglycemia Standing Ord. Dextrose (D10) 250 mls @ 750 mls/hr IV Q15M PRN; Protocol PRN Reason: per Hypoglycemia Standing Ord. Insulin Glargine (Insulin Glargine,Hum.Rec.Anlog 100 Unit/Ml 10 Ml Vial) 12 unit SUBCUT BEDTIME [facility] Last Admin: 10/18/23 21:30 Dose: 12 unit Documented By: SAUL Insulin Human Lispro (Insulin Lispro 100 Unit/Ml 3 Ml Vial) 0 unit SUBCUT QIDACHS [facility]; Protocol Last Admin: 10/19/23 11:39 Dose: 8 unit Documented By: DOLLY Melatonin (Melatonin 3 Mg Tablet) 6 mg PO BEDTIME PRN PRN Reason: Insomnia Metoprolol Tartrate (Metoprolol Tartrate 12.5 Mg Halftab) 37.5 mg PO BID [facility]; Protocol Last Admin: 10/19/23 08:43 Dose: Not Given Documented By: DOLLY Non-Admin Reason: Hold per MD; low BP Ondansetron HCl (Ondansetron Hcl 4 Mg/2 Ml Vial) 4 mg IVPUSH Q8H PRN PRN Reason: Nausea and Vomiting Potassium Phos/Sodium Phos (Sodium,Potassium Phosphates Powd.Pack) 1 packet PO TID [facility] Last Admin: 10/19/23 08:40 Dose: 1 packet Documented By: DOLLY Sodium Chloride (0.9 % Sodium Chloride Flush 3 Ml Syringe) 3 ml IVFLUSH QSHIFT [facility] Last Admin: 10/19/23 08:42 Dose: 3 ml Documented By: DOLLY Labs 10/19/23 06:00 10/19/23 06:00 Labs: Laboratory Results - last 24 hr 10/18/23 10/18/23 10/19/23 15:54 20:25 06:00 MCV 92.2 MCH 31.3 MCHC 34.0 RDW 18.3 H Plt Count 77 L MPV 10.6 Immature Gran % (Auto) 0.4 Neut % (Auto) 73.6 H Lymph % (Auto) 15.4 L [place] % (Auto) 9.8 Eos % (Auto) 0.4 Baso % (Auto) 0.4 Lymph # (Auto) 0.4 L [place] # (Auto) 0.3 Eos # (Auto) 0.0 Baso # (Auto) 0.0 Abs Immat Gran (auto) 0.01 Absolute Neuts (auto) 2.1 Absolute Nucleated RBC 0.000 Nucleated RBC % (auto) 0.0 Smear Tech's Comments VERIFIED Anion Gap 16 Estim Creat Clear Calc 45.8 Estimated GFR 52 POC Glucose 252 H 296 H Random Glucose 186 H Calcium 8.6 D Phosphorus 2.3 L Magnesium 2.1 Albumin 3.4 L 10/19/23 10/19/23 07:46 11:19 MCV MCH MCHC RDW Plt Count MPV Immature Gran % (Auto) Neut % (Auto) Lymph % (Auto) [place] % (Auto) Eos % (Auto) Baso % (Auto) Lymph # (Auto) [place] # (Auto) Eos # (Auto) Baso # (Auto) Abs Immat Gran (auto) Absolute Neuts (auto) Absolute Nucleated RBC Nucleated RBC % (auto) Smear Tech's Comments Anion Gap Estim Creat Clear Calc Estimated GFR POC Glucose 189 H 320 H Random Glucose Calcium Phosphorus Magnesium Albumin Assessment and Plan (1) PAF (paroxysmal atrial fibrillation): Status: Acute (2) Pancytopenia: Status: Acute (3) Atrial fibrillation with RVR: Status: Acute Plan 73-year-old female with pertinent history of insulin-dependent diabetes mellitus, paroxysmal atrial fibrillation on Eliquis, chronic right-sided heart failure, chronic kidney disease stage 2, peripheral vascular disease admitted for further management of SAMI and hyperglycemia related to DKA now with closed AG and possible orthostatic syncope #Acute hyperglycemia with DKA in pt with uncontrolled type 2 dm -Gap closed in ED following IVF, weaned from insulin drip Blood sugars elevated, on lantus, adjust insulin sliding scale hemoglobin A1c 9.5 Follow poc glucose, diabetic diet #Paroxysmal atrial fibrillation- developed rapid AFib with suboptimal control with initial IV Cardizem/labetalol, treated with digoxin but since continued to have rapid ventricular response patient transferred to intensive care unit and was treated with IV amiodarone drip, heart rate improved patient placed on by mouth amiodarone and subsequently transferred to intermediate care unit Stable ventricular rate, continue Eliquis, beta-blockers and amiodarone currently on loading dose will change to amiodarone 200 mg by mouth daily after 10 days, discontinue diltiazem. Obtain echocardiogram Being followed by Cardiology, case discussed with Dr. Rider # pancytopenia noted to have drop in all cell lines. Hematocrit 24.7 dropped from 30/4 0.9 on admission, platelets dropped to 77,000 from normal range of 170 on admission. No bleeding noted, no hematemesis, no melena, no epistaxis, no bruises No new medication except amiodarone, follow CBC Hematology consult #Acute kidney injury- resolved -likely prerenal 2/2 dehydration r/t hyperglycemia -avoid nephrotoxins, encourage po intake -follow renal fx/lytes # acute hypokalemia will replete and follow labs # acute hypophosphatemia replete and follow labs #Acute pseudohyponatremia -r/t hyperglycemia, sodium improved, follow labs. #Possible orthostatic syncope -no recurrent syncopal events, orthostatic vs negative #Pancreatic mass -Outpatient follow-up with [facility] for endoscopic ultrasound-guided biopsy. 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
--- NOTE | 2023-10-19 16:05 | MHC.CM.PN ---
EMR reviewed and per MD rounds, pt is not medically cleared for discharge due to ongoing management of hyperglycemia.
[2023-10-19 16:46] LABS: Glucose, Whole Blood 342 mg/dL (60-115)
[2023-10-19] MEDS: Potassium Chloride ER 20 MEQ TAB.ER.PRT PO (17:02)
[2023-10-19 19:35] LABS: Glucose, Whole Blood 417 mg/dL (60-115)
[2023-10-19] MEDS: Metoprolol Tartrate 12.5 MG HALFTAB 37.5 MG PO (21:36)
[2023-10-19] MEDS: Amiodarone HCL 200 MG TABLET 400 MG PO (21:37)
[2023-10-19 21:53] LABS: Glucose, Whole Blood 406 mg/dL (60-115)
[2023-10-19] MEDS: Insulin Glargine,Hum.rec.anlog 100 UNIT/ML 10 ML VIAL 16 UNIT SUBCUT (22:29)
[2023-10-19 23:24] LABS: Immature Retic Fraction 18.5 % (3.0-15.9); Retic HGB Equivalent 26.5 pg (30.0-35.0); Reticulocyte Percent 2.8 % (0.5-1.8); Reticulocytes Absolute 0.076 X10*6/uL (0.026-0.095)
[2023-10-19 23:25] LABS: Lactate Dehydrogenase 201 U/L (122-220)
[2023-10-20] VITALS (7 sets, daily range): BP systolic 109–123; BP diastolic 56–67; PULSE 76–117; RESP 18; TEMP 36.1–36.6; O2SAT 93–99
[2023-10-20 06:55] LABS: Hematocrit 25.9 % (37.0-47.0); Hemoglobin 8.9 g/dl (12.0-16.0); Mean Corpuscular HGB Conc 34.4 g/dl (31.0-35.0); Mean Corpuscular Volume 90.2 fL (80.0-98.0); Mean Platelet Volume 10.7 fL (9.4-12.3); Red Blood Count 2.87 X10*6/uL (4.20-5.50); Red Cell Distribution Width 18.2 % (11.0-16.0); White Blood Count 4.2 X10*3/uL (4.8-10.8)
[2023-10-20 06:56] LABS: Platelet Count 99 X10*3/uL (160-400)
[2023-10-20 07:12] LABS: Anion Gap 13 (12-20); Blood Urea Nitrogen 22 mg/dL (9-16); Calcium 8.2 mg/dL (8.4-10.2); Carbon Dioxide 22 mmol/L (22-29); Chloride 101 mmol/L (96-108); Estimated Glomerular Filt Rate > 60; Glucose Random 182 mg/dL (60-115); Phosphorus 2.2 mg/dL (2.7-4.5); Potassium 3.5 mmol/L (3.3-5.1); Sodium 132 mmol/L (135-145)
[2023-10-20 07:42] LABS: Glucose, Whole Blood 178 mg/dL (60-115)
[2023-10-20] MEDS: Metoprolol Tartrate 50 MG TABLET PO ×2 (08:50→21:40)
[2023-10-20] MEDS: Sodium,Potassium Phosphates POWD.PACK 2 PACKET PO ×3 (08:50→21:39)
[2023-10-20] MEDS: Amiodarone HCL 200 MG TABLET 400 MG PO ×2 (08:50→21:40)
[2023-10-20] MEDS: 0.9 % Sodium Chloride Flush 3 ML SYRINGE IVFLUSH ×3 (08:51→21:40)
[2023-10-20] MEDS: Insulin Lispro 100 UNIT/ML 3 ML VIAL SUBCUT ×4 (08:51→21:41)
--- NOTE | 2023-10-20 11:02 | P.PNCA_ITS ---
Subjective Subjective Date of Service: 10/20/23 Interval history: Went back into atrial fibrillation yesterday. Asymptomatic. Physical Exam Vital Signs: Last Vital Signs Temp 97.8 F 10/20/23 07:52 Pulse 117 H 10/20/23 08:50 Resp 18 10/20/23 07:52 BP 123/60 10/20/23 08:50 Pulse Ox 96 10/20/23 07:52 O2 Del Method Room Air 10/20/23 07:52 O2 Flow Rate 1 10/18/23 10:00 BMI result Body Mass Index 26.8 GENERAL APPEARANCE: in no acute distress, ill-appearing. NECK: no carotid bruit, no jugular venous distention. SKIN: no suspicious lesions, warm and dry. HEART: Holosystolic murmur left sternal border, irregular rate and rhythm. LUNGS: clear to auscultation bilaterally. ABDOMEN: soft, nontender. EXTREMITIES: no edema. PERIPHERAL PULSES: equal. NEUROLOGIC: No gross deficits, AAO X 3 Objective Labs and Meds 10/20/23 06:28 10/20/23 06:28 Lab results: Laboratory Results - last 24 hr 10/19/23 10/19/23 10/19/23 06:00 11:19 16:42 WBC RBC Hgb Hct MCV MCH MCHC RDW Plt Count MPV Absolute Nucleated RBC Nucleated RBC % (auto) Absolute Retic 0.076 Percent Retic 2.8 H Immature Retic Fraction 18.5 H Retic Hgb Equivalent 26.5 L Sodium Potassium Chloride Carbon Dioxide Anion Gap BUN Creatinine Estim Creat Clear Calc Estimated GFR POC Glucose 320 H 342 H Random Glucose Calcium Phosphorus Lactate Dehydrogenase 201 10/19/23 10/19/23 10/20/23 19:25 21:31 06:28 WBC 4.2 L RBC 2.87 L Hgb 8.9 L Hct 25.9 L MCV 90.2 MCH 31.0 MCHC 34.4 RDW 18.2 H Plt Count 99 L D MPV 10.7 Absolute Nucleated RBC 0.000 Nucleated RBC % (auto) 0.0 Absolute Retic Percent Retic Immature Retic Fraction Retic Hgb Equivalent Sodium 132 L Potassium 3.5 Chloride 101 Carbon Dioxide 22 Anion Gap 13 BUN 22 H Creatinine 0.85 Estim Creat Clear Calc 56.0 Estimated GFR > 60 POC Glucose 417 H* 406 H* Random Glucose 182 H Calcium 8.2 L Phosphorus 2.2 L Lactate Dehydrogenase 10/20/23 07:33 WBC RBC Hgb Hct MCV MCH MCHC RDW Plt Count MPV Absolute Nucleated RBC Nucleated RBC % (auto) Absolute Retic Percent Retic Immature Retic Fraction Retic Hgb Equivalent Sodium Potassium Chloride Carbon Dioxide Anion Gap BUN Creatinine Estim Creat Clear Calc Estimated GFR POC Glucose 178 H Random Glucose Calcium Phosphorus Lactate Dehydrogenase Progress Note: A&P Assessment and plan (1) PAF (paroxysmal atrial fibrillation): Status: Acute Plan Pleasant 73 year female with paroxysmal atrial fibrillation on background of reported right heart failure. She was in the ICU where she converted back to sinus rhythm and was downgraded with amiodarone 200 mg twice a day. Given the fact that she was on beta- monica, received digoxin load, on Cardizem and amiodarone added we decided to stop the Cardizem. Digoxin obviously will not be continued. She went back into atrial fibrillation on 10/19/2023. Her metoprolol dose has been increased and we have increased the amiodarone to 400 mg twice a day. Apixaban is currently on hold. I think we should restart apixaban. Thank you for allowing me to participate in the care of your patient. Please feel free to contact me if you have any questions. Time Spent With Patient Time: Total time managing care of this patient today ____ minutes. Progress Note: Quality Stroke Does the patient have a stroke diagnosis?: No Procedures Date of Service Date of Service: 10/20/23
[2023-10-20 11:21] LABS: Glucose, Whole Blood 264 mg/dL (60-115)
--- NOTE | 2023-10-20 11:24 | P.PNIM_ITS ---
Subjective Subjective Date of Service: 10/20/23 Interval History: Being followed for atrial fibrillation with RVR and hyperglycemia. Patient offers no acute complaints this morning denies chest pain, no shortness of breath no palpitation no dizziness, no fevers no chills, tolerating diet, no acute events overnight . Review of Systems All other system reviewed and negative. Physical Exam 2 Vital Signs: Vital Signs: Last Vital Signs Temp 97.8 F 10/20/23 07:52 Pulse 117 H 10/20/23 08:50 Resp 18 10/20/23 07:52 BP 123/60 10/20/23 08:50 Pulse Ox 96 10/20/23 07:52 O2 Del Method Room Air 10/20/23 07:52 O2 Flow Rate 1 10/18/23 10:00 BMI result Body Mass Index 26.8 Const: Other: General resting comfortably in no acute distress. Neck is supple no JVD. CVS irregular rate rhythm, Respiratory lungs clear to auscultation, no respiratory distress, no wheeze, no rhonchi. Gastrointestinal abdomen soft, non tender, bowel sounds audible. Extremities no edema. Neuro non focal Skin no rash psyche appropriate affect Objective Data Active Medications Acetaminophen (Acetaminophen 325 Mg Tablet) 650 mg PO Q6H PRN PRN Reason: Pain, Mild (Pain Scale 1-3) Last Admin: 10/17/23 16:05 Dose: 650 mg Documented By: GURINDER Amiodarone HCl (Amiodarone Hcl 200 Mg Tablet) 400 mg PO BID [facility] Last Admin: 10/20/23 08:50 Dose: 400 mg Documented By: ANGIE Glucose (Glucose Gel 15 Gm Gel..Gram.) 15 gm PO Q15M PRN; Protocol PRN Reason: per Hypoglycemia Standing Ord. Dextrose (D10) 250 mls @ 750 mls/hr IV Q15M PRN; Protocol PRN Reason: per Hypoglycemia Standing Ord. Insulin Glargine (Insulin Glargine,Hum.Rec.Anlog 100 Unit/Ml 10 Ml Vial) 16 unit SUBCUT BEDTIME [facility] Last Admin: 10/19/23 22:29 Dose: 16 unit Documented By: DIANA Insulin Human Lispro (Insulin Lispro 100 Unit/Ml 3 Ml Vial) 0 unit SUBCUT QIDACHS [facility]; Protocol Last Admin: 05/11/24 08:51 Dose: 4 unit Documented By: ANGIE Melatonin (Melatonin 3 Mg Tablet) 6 mg PO BEDTIME PRN PRN Reason: Insomnia Metoprolol Tartrate (Metoprolol Tartrate 50 Mg Tablet) 50 mg PO BID [facility]; Protocol Last Admin: 10/20/23 08:50 Dose: 50 mg Documented By: ANGIE Ondansetron HCl (Ondansetron Hcl 4 Mg/2 Ml Vial) 4 mg IVPUSH Q8H PRN PRN Reason: Nausea and Vomiting Potassium Phos/Sodium Phos (Sodium,Potassium Phosphates Powd.Pack) 2 packet PO TID [facility] Last Admin: 10/20/23 08:50 Dose: 2 packet Documented By: ANGIE Sodium Chloride (0.9 % Sodium Chloride Flush 3 Ml Syringe) 3 ml IVFLUSH QSHIFT [facility] Last Admin: 10/20/23 08:51 Dose: 3 ml Documented By: ANGIE Labs 10/20/23 06:28 10/20/23 06:28 Labs: Laboratory Results - last 24 hr 10/19/23 10/19/23 10/19/23 06:00 11:19 16:42 MCV MCH MCHC RDW Plt Count MPV Absolute Nucleated RBC Nucleated RBC % (auto) Absolute Retic 0.076 Percent Retic 2.8 H Immature Retic Fraction 18.5 H Retic Hgb Equivalent 26.5 L Anion Gap Estim Creat Clear Calc Estimated GFR POC Glucose 320 H 342 H Random Glucose Calcium Phosphorus Lactate Dehydrogenase 201 10/19/23 10/19/23 10/20/23 19:25 21:31 06:28 MCV 90.2 MCH 31.0 MCHC 34.4 RDW 18.2 H Plt Count 99 L D MPV 10.7 Absolute Nucleated RBC 0.000 Nucleated RBC % (auto) 0.0 Absolute Retic Percent Retic Immature Retic Fraction Retic Hgb Equivalent Anion Gap 13 Estim Creat Clear Calc 56.0 Estimated GFR > 60 POC Glucose 417 H* 406 H* Random Glucose 182 H Calcium 8.2 L Phosphorus 2.2 L Lactate Dehydrogenase 10/20/23 10/20/23 07:33 11:14 MCV MCH MCHC RDW Plt Count MPV Absolute Nucleated RBC Nucleated RBC % (auto) Absolute Retic Percent Retic Immature Retic Fraction Retic Hgb Equivalent Anion Gap Estim Creat Clear Calc Estimated GFR POC Glucose 178 H 264 H Random Glucose Calcium Phosphorus Lactate Dehydrogenase Assessment and Plan (1) PAF (paroxysmal atrial fibrillation): Status: Acute (2) Pancytopenia: Status: Acute (3) Atrial fibrillation with RVR: Status: Acute Plan 73-year-old female with pertinent history of insulin-dependent diabetes mellitus, paroxysmal atrial fibrillation on Eliquis, chronic right-sided heart failure, chronic kidney disease stage 2, peripheral vascular disease admitted for further management of SAMI and hyperglycemia related to DKA now with closed AG and possible orthostatic syncope #Acute hyperglycemia with DKA in pt with uncontrolled type 2 dm -Gap closed in ED following IVF, weaned from insulin drip Blood sugars elevated, on lantus 10 units bedtime at home, will increase Lantus to 18 units, adjust insulin sliding scale hemoglobin A1c 9.5 On Synjardy XR at home Follow poc glucose, diabetic diet #Paroxysmal atrial fibrillation- developed rapid AFib with suboptimal control with initial IV Cardizem/labetalol, treated with digoxin but since continued to have rapid ventricular response patient transferred to intensive care unit and was treated with IV amiodarone drip, heart rate improved patient placed on by mouth amiodarone and subsequently transferred to intermediate care unit on 10/17 Remains in AFib with rapid ventricular rate, continue Eliquis, metoprolol dose increased to 50 b.i.d. and amiodarone currently on 400mg bid loading dose will change to amiodarone 200 mg by mouth daily after 10 days on 10/28. echocardiogram showed EF 60-65%, no wall motion abnormality, indeterminate diastolic function Being followed by Cardiology, case discussed with Dr. Rider, home dose of Cardizem and Lasix discontinued Continue tele monitor. # pancytopenia noted to have drop in all cell lines. Question etiology No bleeding noted, no hematemesis, no melena, no epistaxis, no bruises No new medication except amiodarone Workup for hemolysis showed normal LDH, hapto pending, elevated D-dimer Hematocrit and platelets improving, follow CBC, being followed by Hematology #Acute kidney injury- resolved -likely prerenal 2/2 dehydration r/t hyperglycemia -avoid nephrotoxins, encourage po intake # acute hypokalemia repleted and normalized # acute hypophosphatemia placed on Neutra-Phos 2 packet t.i.d. follow phosphorus level #Acute pseudohyponatremia -r/t hyperglycemia, sodium improved, follow labs. #Possible orthostatic syncope -no recurrent syncopal events, orthostatic vs negative #Pancreatic mass -Outpatient follow-up with [facility] for endoscopic ultrasound-guided biopsy. 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
[2023-10-20] MEDS: Apixaban 5 MG TABLET PO ×2 (11:50→21:40)
[2023-10-20 16:12] LABS: Glucose, Whole Blood 241 mg/dL (60-115)
[2023-10-20 20:13] LABS: Glucose, Whole Blood 200 mg/dL (60-115)
[2023-10-20] MEDS: Insulin Glargine,Hum.rec.anlog 100 UNIT/ML 10 ML VIAL 18 UNIT SUBCUT (22:04)
[2023-10-21] VITALS (7 sets, daily range): BP systolic 105–131; BP diastolic 55–74; PULSE 76–118; RESP 16–20; TEMP -13.2–37.4; O2SAT 95–98
[2023-10-21 06:43] LABS: Hematocrit 27.9 % (37.0-47.0); Hemoglobin 9.4 g/dl (12.0-16.0); Mean Corpuscular HGB Conc 33.7 g/dl (31.0-35.0); Mean Corpuscular Hemoglobin 30.7 pg (27.0-33.0); Mean Corpuscular Volume 91.2 fL (80.0-98.0); Mean Platelet Volume 10.5 fL (9.4-12.3); Platelet Count 137 X10*3/uL (160-400); Red Blood Count 3.06 X10*6/uL (4.20-5.50); Red Cell Distribution Width 18.5 % (11.0-16.0); White Blood Count 5.8 X10*3/uL (4.8-10.8)
[2023-10-21 06:50] LABS: Anion Gap 14 (12-20); Blood Urea Nitrogen 22 mg/dL (9-16); Calcium 8.1 mg/dL (8.4-10.2); Carbon Dioxide 22 mmol/L (22-29); Chloride 100 mmol/L (96-108); Creatinine Clr Calc Pharmacy 58.8; Estimated Glomerular Filt Rate > 60; Glucose Random 171 mg/dL (60-115); Sodium 132 mmol/L (135-145)
[2023-10-21 08:03] LABS: Glucose, Whole Blood 170 mg/dL (60-115)
[2023-10-21] MEDS: Amiodarone HCL 200 MG TABLET 400 MG PO (08:35)
[2023-10-21] MEDS: Metoprolol Tartrate 50 MG TABLET PO ×2 (08:35→22:47)
[2023-10-21] MEDS: Apixaban 5 MG TABLET PO ×2 (08:35→22:48)
[2023-10-21] MEDS: 0.9 % Sodium Chloride Flush 3 ML SYRINGE IVFLUSH ×3 (08:36→22:48)
[2023-10-21] MEDS: Insulin Lispro 100 UNIT/ML 3 ML VIAL SUBCUT ×4 (08:36→22:48)
[2023-10-21] MEDS: Sodium,Potassium Phosphates POWD.PACK 2 PACKET PO ×3 (08:36→22:47)
[2023-10-21 08:40] LABS: Phosphorus 3.3 mg/dL (2.7-4.5)
--- NOTE | 2023-10-21 09:26 | PM.PNCARD ---
Subjective Subjective Date of Service: 10/21/23 Interval history: Seen examined at bedside. Ill-appearing. Continues to be in AFib with RVR. Physical Exam Vital Signs: Last Vital Signs Temp 96.9 F 10/21/23 07:29 Pulse 118 H 10/21/23 07:29 Resp 20 10/21/23 07:29 BP 108/74 10/21/23 07:29 Pulse Ox 95 10/21/23 07:29 O2 Del Method Room Air 10/21/23 07:29 O2 Flow Rate 2 10/20/23 11:34 BMI result Body Mass Index 26.8 GENERAL APPEARANCE: in no acute distress, ill-appearing. NECK: no carotid bruit, no jugular venous distention. SKIN: no suspicious lesions, warm and dry. HEART: Holosystolic murmur left sternal border, irregular rate and rhythm. LUNGS: clear to auscultation bilaterally. ABDOMEN: soft, nontender. EXTREMITIES: no edema. PERIPHERAL PULSES: equal. NEUROLOGIC: No gross deficits, AAO X 3 Objective Labs and Meds 10/21/23 05:56 10/21/23 05:56 Lab results: Laboratory Results - last 24 hr 10/20/23 10/20/23 10/20/23 11:14 16:05 20:06 WBC RBC Hgb Hct MCV MCH MCHC RDW Plt Count MPV Absolute Nucleated RBC Nucleated RBC % (auto) Sodium Potassium Chloride Carbon Dioxide Anion Gap BUN Creatinine Estim Creat Clear Calc Estimated GFR POC Glucose 264 H 241 H 200 H Random Glucose Calcium Phosphorus Magnesium TSH 10/21/23 10/21/23 05:56 07:33 WBC 5.8 RBC 3.06 L Hgb 9.4 L Hct 27.9 L MCV 91.2 MCH 30.7 MCHC 33.7 RDW 18.5 H Plt Count 137 L D MPV 10.5 Absolute Nucleated RBC 0.000 Nucleated RBC % (auto) 0.0 Sodium 132 L Potassium 4.0 Chloride 100 Carbon Dioxide 22 Anion Gap 14 BUN 22 H Creatinine 0.81 Estim Creat Clear Calc 58.8 Estimated GFR > 60 POC Glucose 170 H Random Glucose 171 H Calcium 8.1 L Phosphorus 3.3 Magnesium 2.0 TSH 2.80 Progress Note: A&P Assessment and plan (1) PAF (paroxysmal atrial fibrillation): Status: Acute Plan Pleasant 73 year female with paroxysmal atrial fibrillation on background of reported right heart failure. She is on apixaban currently. She was started on amiodarone in the ICU. She has been in atrial fibrillation more than 24 hours at this point. She was also off Eliquis for few days. I think amiodarone should not be continued any further. There is risk of conversion to sinus rhythm with thromboembolism. Will add diltiazem back at 120 mg daily. Continue anticoagulation as before. Thank you for allowing me to participate in the care of your patient. Please feel free to contact me if you have any questions. Time Spent With Patient Time: Total time managing care of this patient today ____ minutes. Progress Note: Quality Stroke Does the patient have a stroke diagnosis?: No Procedures Date of Service Date of Service: 10/21/23
[2023-10-21] MEDS: dilTIAZem HCL CD 120 MG CAP.ER.DEG PO (10:03)
[2023-10-21 10:17] LABS: INTERNATIONAL NORM RATIO 1.2 (0.9-1.1); Prothrombin Time 14.4 SEC (11.1-13.3)
[2023-10-21 10:20] LABS: Fibrinogen > 700 MG/DL (259-690); Partial Thromboplastin Time 30.1 SEC (26.0-36.8)
[2023-10-21 12:02] LABS: Glucose, Whole Blood 241 mg/dL (60-115)
--- NOTE | 2023-10-21 13:56 | HO.PM.IMPN ---
Subjective Subjective Date of Service: 10/21/23 Interval History: AF in 120s but not symptomatic feels weak denies abd pain or nausea Review of Systems Review of Systems: Yes all other systems are reviewed and are negative Physical Exam Vital Signs: Vital Signs: Last Vital Signs Temp 98.6 F 10/21/23 11:48 Pulse 106 H 10/21/23 11:48 Resp 16 10/21/23 11:48 BP 105/60 10/21/23 11:48 Pulse Ox 97 10/21/23 11:48 O2 Del Method Room Air 10/21/23 11:48 O2 Flow Rate 2 10/20/23 11:34 BMI result Body Mass Index 26.8 Gen: chronically ill-appearing HEENT: sclera anicteric, moist mucus membranes Neck: supple Lungs: clear to auscultation bilaterally Heart: irregular, rapid, no murmurs Abd: soft, non-tender, non-distended Ext: no edema Skin: warm/well-perfused Neuro: alert and oriented x3, no focal findings Psych: appropriate affect Objective Data Active Medications Acetaminophen (Acetaminophen 325 Mg Tablet) 650 mg PO Q6H PRN PRN Reason: Pain, Mild (Pain Scale 1-3) Last Admin: 10/17/23 16:05 Dose: 650 mg Documented By: GURINDER Apixaban (Apixaban 5 Mg Tablet) 5 mg PO BID [facility] Last Admin: 10/21/23 08:35 Dose: 5 mg Documented By: ANGIE Diltiazem HCl (Diltiazem Hcl Cd 120 Mg Cap.Er.Deg) 120 mg PO DAILY [facility]; Protocol Last Admin: 10/21/23 10:03 Dose: 120 mg Documented By: ANGIE Glucose (Glucose Gel 15 Gm Gel..Gram.) 15 gm PO Q15M PRN; Protocol PRN Reason: per Hypoglycemia Standing Ord. Dextrose (D10) 250 mls @ 750 mls/hr IV Q15M PRN; Protocol PRN Reason: per Hypoglycemia Standing Ord. Insulin Glargine (Insulin Glargine,Hum.Rec.Anlog 100 Unit/Ml 10 Ml Vial) 18 unit SUBCUT BEDTIME [facility] Last Admin: 10/20/23 22:04 Dose: 18 unit Documented By: ANDREW Insulin Human Lispro (Insulin Lispro 100 Unit/Ml 3 Ml Vial) 0 unit SUBCUT QIDACHS [facility]; Protocol Last Admin: 10/21/23 12:14 Dose: 8 unit Documented By: ANGIE Melatonin (Melatonin 3 Mg Tablet) 6 mg PO BEDTIME PRN PRN Reason: Insomnia Metoprolol Tartrate (Metoprolol Tartrate 50 Mg Tablet) 50 mg PO BID [facility]; Protocol Last Admin: 10/21/23 08:35 Dose: 50 mg Documented By: ANGIE Ondansetron HCl (Ondansetron Hcl 4 Mg/2 Ml Vial) 4 mg IVPUSH Q8H PRN PRN Reason: Nausea and Vomiting Potassium Phos/Sodium Phos (Sodium,Potassium Phosphates Powd.Pack) 2 packet PO TID [facility] Last Admin: 10/21/23 08:36 Dose: 2 packet Documented By: ANGIE Sodium Chloride (0.9 % Sodium Chloride Flush 3 Ml Syringe) 3 ml IVFLUSH QSHIFT [facility] Last Admin: 10/21/23 08:36 Dose: 3 ml Documented By: ANGIE Labs 10/21/23 05:56 10/21/23 05:56 Labs: Laboratory Results - last 24 hr 10/20/23 10/20/23 10/21/23 16:05 20:06 05:56 MCV 91.2 MCH 30.7 MCHC 33.7 RDW 18.5 H Plt Count 137 L D MPV 10.5 Absolute Nucleated RBC 0.000 Nucleated RBC % (auto) 0.0 PT INR APTT Fibrinogen Anion Gap 14 Estim Creat Clear Calc 58.8 Estimated GFR > 60 POC Glucose 241 H 200 H Random Glucose 171 H Calcium 8.1 L Phosphorus 3.3 Magnesium 2.0 TSH 2.80 10/21/23 10/21/23 10/21/23 07:33 09:35 11:52 MCV MCH MCHC RDW Plt Count MPV Absolute Nucleated RBC Nucleated RBC % (auto) PT 14.4 H INR 1.2 H APTT 30.1 Fibrinogen > 700 H Anion Gap Estim Creat Clear Calc Estimated GFR POC Glucose 170 H 241 H Random Glucose Calcium Phosphorus Magnesium TSH Assessment and Plan (1) PAF (paroxysmal atrial fibrillation): Status: Acute (2) Pancytopenia: Status: Acute (3) Atrial fibrillation with RVR: Status: Acute Plan d6 73yo F with DM2, pAF on apixaban, chronic R CHF, CKD2, PVD, pancreatic mass s/p ERCP + stenting and scheduled for outpt EUS biopsy admitted for SAMI/hyperglycemia due to DKA, possible orthostatic syncope pAF - initially on IV diltiazem + labetolol + digoxin due to RVR then went to ICU 10/16 and treated with IV amiodarone; [place] [facility] [place] - remains in AF with RVR. per Cardiology stop amiodarone given time off anticoagulation and risk of inadvertent cardioversion. Diltiazem resumed. Continue metoprolol tartrate. Continue apixaban. - TTE 10/19/23: - Normal left ventricular size, thickness, systolic function, and wall motion. The visually estimated ejection fraction is between 60-65%. There is no evidence of regional wall motion abnormalities. Diastolic function is indeterminate on the basis of available data. - Mildly increased right ventricular cavity size. There is mildly decreased right ventricular systolic function. - The left atrium is mildly dilated. The right atrium is normal in size. - There is mild dilatation of the sinuses of Valsalva measuring 3.76 cm and mild dilatation of the ascending aorta measuring 3.60 cm. DKA/hyperglycemia, uncontrolled DM2 - A1c 9.5; gap closed in ED following IV insulin + IV fluids; currently on increased Lantus 18 units + anna marie-dose lispro, on Synjardy XR at home SAMI - resolved, likely prerenal due to dehydration/DKA hypokalemia - repleted hypophosphatemia - repleted pancytopenia - improving, Hematology following chronic R-sided HF - off diuretics due to SAMI; appears euvolemic possible orthostatic syncope - resolved, orthostatics negative sacral deep tissue injury chronic nonhealing plantar diabetic ulcer R foot - wound care consulted: 1. Turn and Reposition every 2 hours and as needed for patient comfort.? Use pillows or wedges to support off loading positions. 2. Off Load all bony prominences with use of pillows and heel boots if needed.? Apply Preventative foams where needed. ? 3. Monitor for incontinence and moisture control, use barrier creams when needed for prevention and treatment. 4. Provide adequate and supplemental nutrition.? 5. Order low air loss mattress. 6. When applicable maintain blood glucose levels per Providers order. 7. Sacrum - Routine cleanseing - apply sacral foam dressing - peel back and assess Q shift and change every 3 days and PRN. 8. Right Plantar Foot - Cleanse with wound wash, pat dry. Apply cut to size Durafiber AG lightly packed into wound bed. Cover with dry gauze, ABD pad and gauze wrap. Change every other day. pancreatic mass - has f/u with [facility] for EUS-guided biopsy then will need outpt Oncology f/u VTE ppx - apixaban dispo - STR In my clinical judgment, the patient requires continued inpatient hospitalization for the following reasons: ongoing AF/RVR, needs better rate control Total time managing care of this patient today: 45 minutes. Quality Stroke Does the patient have a stroke diagnosis?: No VTE Prior VTE?: No VTE Risk Level:: Medical - moderate - high VTE Device Contraindication: Treatment Not Indicated VTE Drug Contraindication: N/A - Med Ordered
[2023-10-21 16:10] LABS: Glucose, Whole Blood 225 mg/dL (60-115)
[2023-10-21 21:42] LABS: Glucose, Whole Blood 331 mg/dL (60-115)
[2023-10-21] MEDS: Insulin Glargine,Hum.rec.anlog 100 UNIT/ML 10 ML VIAL 18 UNIT SUBCUT (22:48)
[2023-10-21] MEDS: Acetaminophen 325 MG TABLET 650 MG PO (23:05)
[2023-10-21] MEDS: Melatonin 3 MG TABLET 6 MG PO (23:11)
[2023-10-22] VITALS: RESP 18
[2023-10-22 03:42] VITALS: BP 111/56; PULSE 98; RESP 18; TEMP 36.1; O2SAT 97
[2023-10-22 06:41] LABS: Hematocrit 29.9 % (37.0-47.0); Hemoglobin 9.8 g/dl (12.0-16.0); Mean Corpuscular HGB Conc 32.8 g/dl (31.0-35.0); Mean Corpuscular Hemoglobin 30.5 pg (27.0-33.0); Mean Corpuscular Volume 93.1 fL (80.0-98.0); Mean Platelet Volume 10.1 fL (9.4-12.3); Platelet Count 174 X10*3/uL (160-400); Red Blood Count 3.21 X10*6/uL (4.20-5.50); Red Cell Distribution Width 18.7 % (11.0-16.0); White Blood Count 5.9 X10*3/uL (4.8-10.8)
[2023-10-22 07:05] LABS: Alanine Aminotransferase 27 U/L (0-31); Albumin Level 2.7 g/dL (3.5-5.0); Alkaline Phosphatase 118 U/L (39-117); Anion Gap 13 (12-20); Aspartate Amino Transferase 24 U/L (5-31); Blood Urea Nitrogen 21 mg/dL (9-16); Calcium 8.3 mg/dL (8.4-10.2); Carbon Dioxide 25 mmol/L (22-29); Chloride 100 mmol/L (96-108); Creatinine Clr Calc Pharmacy 58.8; Estimated Glomerular Filt Rate > 60; Glucose Random 172 mg/dL (60-115); Magnesium 2.2 mg/dL (1.6-2.6); Phosphorus 3.4 mg/dL (2.7-4.5); Potassium 4.5 mmol/L (3.3-5.1); Sodium 133 mmol/L (135-145); Total Protein 5.5 g/dL (6.5-8.0)
[2023-10-22 07:19] LABS: Glucose, Whole Blood 164 mg/dL (60-115)
[2023-10-22 08:00] VITALS: BP 100/51; PULSE 90; RESP 16; TEMP 36.4; O2SAT 99
[2023-10-22] MEDS: Sodium,Potassium Phosphates POWD.PACK 2 PACKET PO ×2 (08:35→15:27)
[2023-10-22] MEDS: Metoprolol Tartrate 50 MG TABLET PO (08:35)
[2023-10-22] MEDS: Insulin Lispro 100 UNIT/ML 3 ML VIAL SUBCUT ×2 (08:35→12:59)
[2023-10-22] MEDS: Apixaban 5 MG TABLET PO (08:35)
[2023-10-22] MEDS: dilTIAZem HCL CD 120 MG CAP.ER.DEG PO (08:36)
[2023-10-22] MEDS: 0.9 % Sodium Chloride Flush 3 ML SYRINGE IVFLUSH ×2 (08:36→15:29)
--- NOTE | 2023-10-22 10:32 | PM.PNCARD ---
Subjective Subjective Date of Service: 10/22/23 Principal diagnosis: Paroxysmal atrial flutter Interval history: Patient converted back to sinus rhythm. No cardiac symptoms to report Review of Systems Constitutional: Reports weakness Eyes: Reports no additional eye complaints Cardiovascular: Reports no additional cardiovascular complaints Respiratory: Reports no additional respiratory complaints Gastrointestinal: Reports no additional gastrointestinal complaints Reports system reviewed and no additional complaints, except as documented and Reports weakness Physical Exam Vital Signs: Last Vital Signs Temp 97.6 F 10/22/23 08:00 Pulse 90 10/22/23 08:00 Resp 16 10/22/23 08:00 BP 100/51 L 10/22/23 08:00 Pulse Ox 99 10/22/23 08:00 O2 Del Method Room Air 10/22/23 08:00 O2 Flow Rate 2 10/20/23 11:34 BMI result Body Mass Index 26.8 GENERAL APPEARANCE: in no acute distress, ill-appearing. NECK: no carotid bruit, no jugular venous distention. SKIN: no suspicious lesions, warm and dry. HEART: Holosystolic murmur left sternal border, irregular rate and rhythm. LUNGS: clear to auscultation bilaterally. ABDOMEN: soft, nontender. EXTREMITIES: no edema. PERIPHERAL PULSES: equal. NEUROLOGIC: No gross deficits, AAO X 3 Objective Labs and Meds 10/22/23 06:26 10/22/23 06:26 Lab results: Laboratory Results - last 24 hr 10/21/23 10/21/23 10/21/23 11:52 16:02 21:39 WBC RBC Hgb Hct MCV MCH MCHC RDW Plt Count MPV Absolute Nucleated RBC Nucleated RBC % (auto) Sodium Potassium Chloride Carbon Dioxide Anion Gap BUN Creatinine Estim Creat Clear Calc Estimated GFR POC Glucose 241 H 225 H 331 H Random Glucose Calcium Phosphorus Magnesium Total Bilirubin AST ALT Alkaline Phosphatase Total Protein Albumin 10/22/23 10/22/23 06:26 07:07 WBC 5.9 RBC 3.21 L Hgb 9.8 L Hct 29.9 L MCV 93.1 MCH 30.5 MCHC 32.8 RDW 18.7 H Plt Count 174 D MPV 10.1 Absolute Nucleated RBC 0.000 Nucleated RBC % (auto) 0.0 Sodium 133 L Potassium 4.5 Chloride 100 Carbon Dioxide 25 Anion Gap 13 BUN 21 H Creatinine 0.81 Estim Creat Clear Calc 58.8 Estimated GFR > 60 POC Glucose 164 H Random Glucose 172 H Calcium 8.3 L Phosphorus 3.4 Magnesium 2.2 Total Bilirubin 1.0 AST 24 ALT 27 Alkaline Phosphatase 118 H Total Protein 5.5 L Albumin 2.7 L Progress Note: A&P Assessment and plan (1) PAF (paroxysmal atrial fibrillation): Status: Acute Assessment and Plan: Paroxysmal atrial fibrillation with stable blood pressure and hemodynamics. Continue current therapy with metoprolol and Cardizem. If she has recurrent atrial fibrillation that is symptomatic may require rhythm control approach with antiarrhythmic. Most recent episode related to acute medical illness. Continue full oral anticoagulation Elialissa. 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 Will follow up as need be. Thank you for allowing me to partake in her care Time Spent With Patient Time: Total time managing care of this patient today ____ minutes. Progress Note: Quality Stroke Does the patient have a stroke diagnosis?: No Procedures Date of Service Date of Service: 10/22/23
[2023-10-22 10:48] VITALS: BP 100/49; PULSE 90; RESP 16; TEMP 36.2; O2SAT 97
--- NOTE | 2023-10-22 11:23 | MHC.CLN ---
F/U PT WITH INCREASED NUTRITION RISK R/T PRESSURE INJURY PO INTAKE 75-100% DIET RX: 1800DM -APPROPRIATE PT RECEIVING ENSURE MAX BID TO PROMOTE WOUND HEALING PROVIDES 300KCALS, 60G PROTEIN CONTINUE TO MONITOR PO INTAKE AND ENCOURAGE SUPPLEMENTS
[2023-10-22 12:04] LABS: Glucose, Whole Blood 377 mg/dL (60-115)
--- NOTE | 2023-10-22 14:26 | P.DS_ITS ---
DS: Providers Provider Date of Service: 10/22/23 Date of admission: 10/16/23 23:24 Date of discharge: 10/22/23 Primary care physician: Danyell Glass MD Consults: 10/17/23 12:06 Consult to Wound Care Routine Reason for consultation: r foot ulcer 10/17/23 13:51 Consult to Cardiology Routine Consulting Provider: [facility] Reason for consultation: afib rvr 10/18/23 09:28 Consult to Cardiology Routine Consulting Provider: [facility] Reason for consultation: at fib with rvr Has provider been notified: No 10/19/23 08:35 Consult to Hematology / Oncology Routine Consulting Provider: Ngozi Vann Reason for consultation: pancytopenia Has provider been notified: No DS: Diagnosis Discharge Diagnosis (1) PAF (paroxysmal atrial fibrillation): Status: Acute (2) Atrial fibrillation with RVR: Status: Acute (3) Pancytopenia: Status: Acute (4) Acute kidney injury: Status: Acute (5) Type 2 diabetes mellitus: Status: Acute (6) DKA (diabetic ketoacidosis): Status: Acute (7) Pancreatic mass: Status: Acute (8) Hypophosphatemia: Status: Acute (9) Hypokalemia: Status: Acute DS: Summary Hospital Course Hospital Course: From the history and physical by the admitting hospitalist, Jorge Kovacs MD, 10/16/23: This is a 73-year-old female with pertinent history of insulin-dependent diabetes mellitus, paroxysmal atrial fibrillation on Eliquis, chronic right- sided heart failure, chronic kidney disease stage 2, peripheral vascular disease who presents to the emergency department for evaluation of elevated blood sugars. Patient states she was [facility] as her blood sugar was found to be high. She was prescribed insulin by PCP but patient has not started it yet. Patient woke up on the ground this morning, states she must have passed out last night while going to the bathroom. Does not remember if she had dizziness or lightheadedness prior to passing out. No chest discomfort or palpitations. No rhythmic jerking movement of extremities. Patient does admit that she has been thirsty and peeing more often over the last few days. No nausea, vomiting or diarrhea. No fever, chills, chest discomfort, shortness of breath, abdominal pain, changes in bowel habits. Of note, patient was recently admitted on 09/25/2023 and discharged on 09/28/2023 with obstructive painless jaundice. Imaging with pancreatic mass. ERCP was done with stent placement by Gastroenterology and biopsy was taken. Patient followed up with Oncology and biopsy brushings noted to be negative. Patient is scheduled for outpatient follow-up with [facility] for endoscopic ultrasound guided biopsy and Oncology outpatient follow-up for systemic chemotherapy. In the emergency department, patient was found to be in DKA and initiated on IV insulin. Gap was closed and hospital medicine team was contacted. 73yo F with DM2, pAF on apixaban, chronic R CHF, CKD2, PVD, pancreatic mass s/p ERCP + stenting and scheduled for outpt EUS biopsy 10/26/23 at [facility]. He wasadmitted for SAMI/hyperglycemia due to DKA, possible orthostatic syncope. Hospital course by problem: pAF - initially on IV diltiazem + labetolol + digoxin due to RVR then went to ICU 10/16 and treated with IV amiodarone; stepped down to IMC 10/17 - remains in AF with RVR. per Cardiology stopped amiodarone given time off anticoagulation and risk of inadvertent cardioversion. Diltiazem resumed but at lower dose of 120 mg/d. Continued metoprolol tartrate but at higher dose of 50 mg bid. Continued apixaban for anticoagulation. - TTE 10/19/23: - Normal left ventricular size, thickness, systolic function, and wall motion. The visually estimated ejection fraction is between 60-65%. There is no evidence of regional wall motion abnormalities. Diastolic function is indeterminate on the basis of available data. - Mildly increased right ventricular cavity size. There is mildly decreased right ventricular systolic function. - The left atrium is mildly dilated. The right atrium is normal in size. - There is mild dilatation of the sinuses of Valsalva measuring 3.76 cm and mild dilatation of the ascending aorta measuring 3.60 cm. 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 Turn and Reposition every 2 hours and as needed for patient comfort.? Use pillows or wedges to support off loading positions. 2. Off Load all bony prominences with use of pillows and heel boots if needed.? Apply Preventative foams where needed. ? 3. Monitor for incontinence and moisture control, use barrier creams when needed for prevention and treatment. 4. Provide adequate and supplemental nutrition.? 5. Order low air loss mattress. 6. When applicable maintain blood glucose levels per Providers order. 7. Sacrum - Routine cleanseing - apply sacral foam dressing - peel back and assess Q shift and change every 3 days and PRN. 8. Right Plantar Foot - Cleanse with wound wash, pat dry. Apply cut to size Durafiber AG lightly packed into wound bed. Cover with dry gauze, ABD pad and gauze wrap. Change every other day. pancreatic mass - has f/u with [facility] for EUS-guided biopsy 10/26/23 then will need outpt Oncology follow-up. She was discharged to [facility] for short-term rehabilitation. Time Attestation Discharge Coordination Time (in mins): 45 Quality: Safe Use of Opioids Does Pt have an Active Cancer Diagnosis on the Problem List?: No Quality: Stroke Does the patient have a stroke diagnosis?: No Physical Exam Vital Signs: Vital Signs: Last Vital Signs Temp 97.2 F 10/22/23 10:48 Pulse 90 10/22/23 10:48 Resp 16 10/22/23 10:48 BP 100/49 L 10/22/23 10:48 Pulse Ox 97 10/22/23 10:48 O2 Del Method Room Air 10/22/23 10:48 O2 Flow Rate 2 10/20/23 11:34 BMI result Body Mass Index 26.8 Gen: chronically ill-appearing HEENT: sclera anicteric, moist mucus membranes Neck: supple Lungs: clear to auscultation bilaterally Heart: regular, no murmurs Abd: soft, non-tender, non-distended Ext: no edema Skin: warm/well-perfused Neuro: alert and oriented x3, no focal findings Psych: appropriate affect DS: Data Data Completed and Pending Completed studies during hospitalization [Text1]: Laboratory Results WBC 5.9 X10*3/uL (4.8-10.8) 10/22/23 06:26 RBC 3.21 X10*6/uL (4.20-5.50) L 10/22/23 06:26 Hgb 9.8 g/dl (12.0-16.0) L 10/22/23 06:26 Hct 29.9 % (37.0-47.0) L 10/22/23 06:26 MCV 93.1 fL (80.0-98.0) 10/22/23 06:26 MCH 30.5 pg (27.0-33.0) 10/22/23 06:26 MCHC 32.8 g/dl (31.0-35.0) 10/22/23 06:26 RDW 18.7 % (11.0-16.0) H 10/22/23 06:26 Plt Count 174 X10*3/uL (160-400) D 10/22/23 06:26 MPV 10.1 fL (9.4-12.3) 10/22/23 06:26 Immature Gran % (Auto) 0.4 % (0.0-0.4) 10/19/23 06:00 Neut % (Auto) 73.6 % (45-73) H 10/19/23 06:00 Lymph % (Auto) 15.4 % (20-40) L 10/19/23 06:00 Butts % (Auto) 9.8 % (2-11) 10/19/23 06:00 Eos % (Auto) 0.4 % (0-4) 10/19/23 06:00 Baso % (Auto) 0.4 % (0-2) 10/19/23 06:00 Lymph # (Auto) 0.4 X10*3/uL (1.2-4.9) L 10/19/23 06:00 Butts # (Auto) 0.3 X10*3/uL (0.1-1.2) 10/19/23 06:00 Eos # (Auto) 0.0 X10*3/uL (0.0-0.4) 10/19/23 06:00 Baso # (Auto) 0.0 X10*3/uL (0.0-0.2) 10/19/23 06:00 Abs Immat Gran (auto) 0.01 X10*3/uL (0.00-0.03) 10/19/23 06:00 Absolute Neuts (auto) 2.1 x10*3/uL (2.0-8.3) 10/19/23 06:00 Absolute Nucleated RBC 0.000 X10*3/uL (0.0-0.012) 10/22/23 06:26 Nucleated RBC % (auto) 0.0 /100WBC (0.0-0.2) 10/22/23 06:26 Smear Tech's Comments VERIFIED 10/19/23 06:00 Absolute Retic 0.076 X10*6/uL (0.026-0.095) 10/19/23 06:00 Percent Retic 2.8 % (0.5-1.8) H 10/19/23 06:00 Immature Retic Fraction 18.5 % (3.0-15.9) H 10/19/23 06:00 Retic Hgb Equivalent 26.5 pg (30.0-35.0) L 10/19/23 06:00 PT 14.4 SEC (11.1-13.3) H 10/21/23 09:35 INR 1.2 (0.9-1.1) H 10/21/23 09:35 APTT 30.1 SEC (26.0-36.8) 10/21/23 09:35 Fibrinogen > 700 MG/DL (259-690) H 10/21/23 09:35 D-Dimer High Sensitivty 732 NG/ML 10/17/23 14:16 VBG pH 7.46 (7.32-7.43) H 10/18/23 05:22 VBG pCO2 28 mmHg 10/18/23 05:22 VBG pO2 43 mmHg 10/18/23 05:22 VBG HCO3 20 mmol/L (22-26) L 10/18/23 05:22 VBG O2 Saturation 78.0 % 10/18/23 05:22 VBG Base Excess -2.3 mmol/L 10/18/23 05:22 Sodium 133 mmol/L (135-145) L 10/22/23 06:26 Potassium 4.5 mmol/L (3.3-5.1) 10/22/23 06:26 Chloride 100 mmol/L (96-108) 10/22/23 06:26 Carbon Dioxide 25 mmol/L (22-29) 10/22/23 06:26 Anion Gap 13 (12-20) 10/22/23 06:26 BUN 21 mg/dL (9-16) H 10/22/23 06:26 Creatinine 0.81 mg/dL (0.5-1.4) 10/22/23 06:26 Estim Creat Clear Calc 58.8 10/22/23 06:26 Estimated GFR > 60 10/22/23 06:26 POC Glucose 377 mg/dL (60-115) H* 10/22/23 11:47 Random Glucose 172 mg/dL (60-115) H 10/22/23 06:26 Fasting Glucose 262 mg/dL (60-99) H 10/16/23 22:24 Estimat Average Glucose 226 mg/dL 10/17/23 04:46 Hemoglobin A1c % 9.5 % (<6.0) H 10/17/23 04:46 Lactic Acid 3.4 mmol/L (0.5-2.0) H* 10/17/23 14:05 Lactic Acid F/U @ 2Hr 1.6 mmol/L (0.5-2.0) 10/17/23 16:40 Calcium 8.3 mg/dL (8.4-10.2) L 10/22/23 06:26 Phosphorus 3.4 mg/dL (2.7-4.5) 10/22/23 06:26 Magnesium 2.2 mg/dL (1.6-2.6) 10/22/23 06:26 Total Bilirubin 1.0 mg/dL (0.0-1.0) 10/22/23 06:26 Direct Bilirubin 1.3 mg/dL (0.0-0.5) H 10/16/23 17:54 AST 24 U/L (5-31) 10/22/23 06:26 ALT 27 U/L (0-31) 10/22/23 06:26 Alkaline Phosphatase 118 U/L (39-117) H 10/22/23 06:26 Lactate Dehydrogenase 201 U/L (122-220) 10/19/23 06:00 Total Creatine Kinase 247 U/L (26-140) H 10/16/23 17:54 Troponin I High Sens 12.6 ng/L (<3.5-17.0) 10/17/23 14:16 Total Protein 5.5 g/dL (6.5-8.0) L 10/22/23 06:26 Albumin 2.7 g/dL (3.5-5.0) L 10/22/23 06:26 Beta-Hydroxybutyrate 4.73 mmol/L (0.02-0.27) H 10/16/23 17:54 TSH 2.80 uIU/mL (0.32-4.0) 10/21/23 05:56 Urine Color Yellow 10/16/23 22:18 Urine Appearance Clear 10/16/23 22:18 Urine pH 5.5 (5.0-9.0) 10/16/23 22:18 Ur Specific [place] >= 1.030 (1.005-1.025) H 10/16/23 22:18 Urine Protein 30 (1+) mg/dL (Neg-Trace) H 10/16/23 22:18 Urine Glucose (UA) >=1000 mg/dL (Negative) H 10/16/23 22:18 Urine Ketones 15 mg/dL (Negative) 10/16/23 22:18 Urine Blood Small (1+) (Negative) H 10/16/23 22:18 Urine Nitrite Negative (Negative) 10/16/23 22:18 Ur Leukocyte Esterase Negative (Negative) 10/16/23 22:18 Urine RBC 11-20 /HPF (0-2) H 10/16/23 22:18 Urine WBC 11-20 /HPF (0-5) H 10/16/23 22:18 Ur Squamous Epith Cells 0-2 /HPF (0-2) 10/16/23 22:18 Urine Bacteria 2+ (None Seen) 10/16/23 22:18 Hyaline Casts 0-2 /LPF (0-2) 10/16/23 22:18 Urine Yeast Present 10/16/23 22:[address] 10/16/23 17:50 IMPRESSION: 1. No acute intracranial pathology. 2. Chronic white matter small vessel ischemic changes. EXAMINATION: Noncontrast CT scan of the cervical spine. INDICATION: Fall. COMPARISON: None. TECHNIQUE: Helical, multidetector axial images were obtained from the occiput to the upper thorax. Coronal and sagittal reformats of the cervical spine were provided for interpretation. DLP: 800 mGy-cm FINDINGS: No acute fractures or dislocations of the cervical spine are seen. Straightening of the normal cervical curvature. Multilevel degenerative changes. Sclerotic focus of C4 vertebral body potentially representing a bone island. Anatomic alignment and positioning of the vertebral bodies and posterior elements is noted. The atlantoaxial joint and craniovertebral articulations are normal without evidence of subluxation. There is no prevertebral soft tissue swelling. Biapical pleural parenchymal scarring probably. Calcifications of the left thyroid lobe. IMPRESSION: 1. No acute visible fracture or dislocation. 2. Straightening of the normal cervical curvature. 3. Multilevel degenerative changes. Head CT 10/16/23 17:50 IMPRESSION: 1. No acute intracranial pathology. 2. Chronic white matter small vessel ischemic changes. EXAMINATION: Noncontrast CT scan of the cervical spine. INDICATION: Fall. COMPARISON: None. TECHNIQUE: Helical, multidetector axial images were obtained from the occiput to the upper thorax. Coronal and sagittal reformats of the cervical spine were provided for interpretation. DLP: 800 mGy-cm FINDINGS: No acute fractures or dislocations of the cervical spine are seen. Straightening of the normal cervical curvature. Multilevel degenerative changes. Sclerotic focus of C4 vertebral body potentially representing a bone island. Anatomic alignment and positioning of the vertebral bodies and posterior elements is noted. The atlantoaxial joint and craniovertebral articulations are normal without evidence of subluxation. There is no prevertebral soft tissue swelling. Biapical pleural parenchymal scarring probably. Calcifications of the left thyroid lobe. IMPRESSION: 1. No acute visible fracture or dislocation. 2. Straightening of the normal cervical curvature. 3. Multilevel degenerative changes. Chest X-Ray 10/16/23 21:10 IMPRESSION: 1. No focal infiltrate or congestive heart failure is seen. 2. There is mild left base linear scar/subsegmental atelectasis. 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 pancreatic mass Referrals: [facility] [Outside] - 1 Week Danyell Glass MD [Primary Care Provider] - 1 Week Discharge Medications: New metoprolol tartrate 50 mg Tablet 50 mg PO BID Qty: 60 0RF Protocol: Hold for SBP/HR < HOLD for SBP < : 90 HOLD for HR < : 60 diltiazem HCl [Cardizem CD] 120 mg Capsule,Extended Release 24hr 120 mg PO DAILY Qty: 30 0RF Protocol: Hold for SBP/HR < HOLD for SBP < : 90 HOLD for HR < : 60 potassium, sodium phosphates [Phos-NaK] 280-160-250 mg Powder In Packet 1 packet PO BID Qty: 60 0RF insulin glargine [Lantus U-100 Insulin] 100 unit/mL Solution 18 unit subcut BEDTIME Qty: 1 0RF Continued furosemide 40 mg tablet 40 mg PO BID@0900,1200 atorvastatin 10 mg tablet 10 mg PO BEDTIME Eliquis 5 mg tablet 5 mg PO BID Hold Instructions: Restart on Thursday 09/28 evening Synjardy XR 25-1,000 mg tablet, IR - ER, biphasic 24hr 1 tab PO DAILY Discontinued diltiazem HCl 240 mg capsule,extended release 24hr 240 mg PO DAILY metoprolol tartrate 25 mg tablet 37.5 mg PO BID insulin glargine [Lantus Solostar U-100 Insulin] 100 unit/mL (3 mL) insulin pen 10 unit subcut BEDTIME Discharge Orders: Discharge Order (Routine); Ordered 10/22/23 Ordered By: José Miguel Castañeda Diet: Advance to usual diet Activity on Discharge: As tolerated Stand Alone Forms: Patient Portal Discharge page Print Language: [place] Care Plan Goals: control of atrial fibrillation with prevention of stroke control of diabetes and prevention of complications diagnosis of pancreatic mass Health Concerns: atrial fibrillation DKA/hyperglycemia, uncontrolled DM2 SAMI, electrolyte abnormalities sacral deep tissue injury, chronic nonhealing plantar diabetic ulcer R foot pancreatic mass Plan of Treatment: atrial fibrillation - decrease diltiazem to 120 mg daily, increase metoprolol to 50 mg twice daily - continue apixaban 5 mg twice daily DKA/hyperglycemia, uncontrolled DM2 - take insulin as directed- Lantus increased to 18 units; continue Synjardy SAMI, electrolyte abnormalities - resolved; continue phosphorous packets sacral deep tissue injury, chronic nonhealing plantar diabetic ulcer R foot - 1. Turn and Reposition every 2 hours and as needed for patient comfort.? Use pillows or wedges to support off loading positions. 2. Off Load all bony prominences with use of pillows and heel boots if needed.? Apply Preventative foams where needed. ? 3. Monitor for incontinence and moisture control, use barrier creams when needed for prevention and treatment. 4. Provide adequate and supplemental nutrition.? 5. Order low air loss mattress. 6. When applicable maintain blood glucose levels per Providers order. 7. Sacrum - Routine cleanseing - apply sacral foam dressing - peel back and assess Q shift and change every 3 days and PRN. 8. Right Plantar Foot - Cleanse with wound wash, pat dry. Apply cut to size Durafiber AG lightly packed into wound bed. Cover with dry gauze, ABD pad and gauze wrap. Change every other day. pancreatic mass - follow up with [facility] on Sunday10/26/23 for endoscopic US with biopsy Please follow up with your primary care doctor within 1 week. Return to the hospital if you experience recurrent or worsening symptoms. Assessment: See Discharge Summary.
--- NOTE | 2023-10-22 14:34 | MHC.CM.PN ---
Second IMM given 10/21. Pt is medically cleared for discharge to [facility] for STR today, she will transport via BLS/[facility] at 4pm. Pt is scheduled for an endoscopic ultrasound guided biopsy at [facility] this upcoming Wednesday 10/25, and per pt she can arrange her own transportation there and back. [facility] Liaison Kenisha aware and said that is not a problem.
[2023-10-22 16:00] VITALS: BP 120/62; PULSE 92; RESP 16; TEMP 36.3; O2SAT 98
[2023-10-22 16:59] LABS: Glucose, Whole Blood 283 mg/dL (60-115)
[2023-10-24 16:48] LABS: Haptoglobin 180 mg/dL (43-212)
== END 2023-10-22 17:25 | disposition skilled nursing facility (03) | DRG 638 ==
LOC: HO.ED 21:15 → HO.EDOVER 23:29 → HO.ICU 10-17 14:03 → HO.IMC 10-18 11:23
PROVIDERS: Emergency Medicine; Hospitalist; Internal Medicine Medical Oncology; Internal Medicine Pulmonary Disease; Nurse Practitioner Acute Care; Physician Assistant; Admitting Provider Student in an Organized Health Care Education/Training Program; Emergency Provider Student in an Organized Health Care Education/Training Program; PCP Internal Medicine; Visit Provider Family Medicine
DX: E11.10 Type 2 diabetes mellitus with ketoacidosis without coma (principal); D61.818 Other pancytopenia; L97.419 Non-pressure chronic ulcer of right heel and midfoot with unspecified severity; N17.9 Acute kidney failure, unspecified; I48.0 Paroxysmal atrial fibrillation; I95.1 Orthostatic hypotension; K86.9 Disease of pancreas, unspecified; E11.65 Type 2 diabetes mellitus with hyperglycemia; E87.6 Hypokalemia; E83.39 Other disorders of phosphorus metabolism; L89.156 Pressure-induced deep tissue damage of sacral region; E11.621 Type 2 diabetes mellitus with foot ulcer; I07.1 Rheumatic tricuspid insufficiency; N18.2 Chronic kidney disease, stage 2 (mild); E11.22 Type 2 diabetes mellitus with diabetic chronic kidney disease; E11.51 Type 2 diabetes mellitus with diabetic peripheral angiopathy without gangrene; I50.812 Chronic right heart failure; Z79.4 Long term (current) use of insulin; Z79.01 Long term (current) use of anticoagulants; Z79.899 Other long term (current) drug therapy
CPT/HCPCS: 36415; 70450; 71045; 72125; 80048; 80053; 80076; 81001; 82010; 82040; 82550; 82803; 82947; 83010; 83036; 83605; 83615; 83735; 84100; 84443; 84484; 85025; 85027; 85045; 85379; 85384; 85610; 85730; 87086; 93005; 93306; 97110; 97116; 97162; 97530; 99285; J0282; J0283; J1160; P9047; Q9957

== ENCOUNTER → 2023-10-16 16:37 | Outpatient (BNV) | payer MEDICARE, OTHER, SELFPAY | PROVIDERS: Admitting Provider Student in an Organized Health Care Education/Training Program; Emergency Provider Student in an Organized Health Care Education/Training Program; PCP Internal Medicine; Visit Provider Internal Medicine Cardiovascular Disease | DX: R00.0 Tachycardia, unspecified (principal) | CPT/HCPCS: 93010 ==

== ENCOUNTER 2023-10-16 23:24 | Outpatient (BNV) | payer MEDICARE, OTHER, SELFPAY | END 2023-10-19 07:00 | PROVIDERS: Admitting Provider Student in an Organized Health Care Education/Training Program; Emergency Provider Student in an Organized Health Care Education/Training Program; PCP Internal Medicine; Visit Provider Internal Medicine Cardiovascular Disease | DX: I36.1 Nonrheumatic tricuspid (valve) insufficiency (principal) | CPT/HCPCS: 93306 ==

== ENCOUNTER 2023-10-16 23:24 | Outpatient (BNV) | payer MEDICARE, OTHER, SELFPAY | END 2023-10-17 13:17 | PROVIDERS: Admitting Provider Student in an Organized Health Care Education/Training Program; Emergency Provider Student in an Organized Health Care Education/Training Program; PCP Internal Medicine; Visit Provider Internal Medicine Cardiovascular Disease | DX: I48.91 Unspecified atrial fibrillation (principal) | CPT/HCPCS: 93010 ==

== ENCOUNTER → 2023-10-16 23:24 | Outpatient (BNV) | payer MEDICARE, OTHER, SELFPAY | PROVIDERS: Admitting Provider Student in an Organized Health Care Education/Training Program; Emergency Provider Student in an Organized Health Care Education/Training Program; PCP Internal Medicine; Visit Provider Internal Medicine Medical Oncology | DX: D61.818 Other pancytopenia (principal) | CPT/HCPCS: 99222 ==

== ENCOUNTER → 2023-10-16 23:24 | Outpatient (BNV) | payer MEDICARE, OTHER, SELFPAY | PROVIDERS: Admitting Provider Student in an Organized Health Care Education/Training Program; Emergency Provider Student in an Organized Health Care Education/Training Program; PCP Internal Medicine; Visit Provider Internal Medicine Cardiovascular Disease | DX: I48.0 Paroxysmal atrial fibrillation (principal) | CPT/HCPCS: 99223; 99232; 99233 ==

== ENCOUNTER → 2023-10-16 23:24 | Outpatient (BNV) | payer MEDICARE, OTHER, SELFPAY | PROVIDERS: Admitting Provider Student in an Organized Health Care Education/Training Program; Emergency Provider Student in an Organized Health Care Education/Training Program; PCP Internal Medicine; Visit Provider Internal Medicine Pulmonary Disease | DX: N17.9 Acute kidney failure, unspecified (principal); E11.9 Type 2 diabetes mellitus without complications; I48.0 Paroxysmal atrial fibrillation | CPT/HCPCS: 99232; 99233 ==

== ENCOUNTER → 2023-10-16 23:24 | Outpatient (BNV) | payer MEDICARE, OTHER, SELFPAY | PROVIDERS: Admitting Provider Student in an Organized Health Care Education/Training Program; Emergency Provider Student in an Organized Health Care Education/Training Program; PCP Internal Medicine; Visit Provider Student in an Organized Health Care Education/Training Program | DX: I48.0 Paroxysmal atrial fibrillation (principal); D61.818 Other pancytopenia; N17.9 Acute kidney failure, unspecified; E11.10 Type 2 diabetes mellitus with ketoacidosis without coma; K86.89 Other specified diseases of pancreas; E83.39 Other disorders of phosphorus metabolism; E87.6 Hypokalemia | CPT/HCPCS: 99223; 99232; 99233; 99239 ==

== ENCOUNTER 2023-11-30 09:30 | Day surgery (SDC) | payer MEDICARE, OTHER, SELFPAY ==
--- NOTE | ~2023-11-30 | IR_ITS ---
CLINICAL HISTORY: Pancreatic cancer. The patient presents to interventional radiology for placement of a port for chemotherapy. PROCEDURES: 1. Real-time ultrasound-guided access into the right internal jugular vein after documentation of selected vessel patency, and permanent image storing in the patient records. 2. Placement of a 6.6 Indian single-lumen power port. CLINICIAN: Juan Jensen PA-C MEDICATIONS: - Versed 1 mg, Fentanyl 50 mcg, Lidocaine 1% 10 mL SQ -Antibiotics: Ancef 2g -For additional details, please see nursing flowsheet. Complications: None. Estimated blood loss: <5 ml Specimens: None. Contrast: None. Fluoroscopy time: 0.6 min MODERATE SEDATION TIME: 27 min PROCEDURE NOTE: The procedure, risks, benefits, and alternatives were carefully explained to the patient and written informed consent was obtained. The patient was placed supine on the fluoroscopy table. A timeout was performed. The right neck and chest was prepped and draped in usual sterile fashion. Maximum barrier technique was utilized. Local anesthesia was administered to the access site with 1% lidocaine. Under ultrasound guidance, the right internal jugular vein was accessed with a 5 fr micropuncture set. A 0.035 in wire was advanced into the IVC. A peel-away sheath was advanced over the wire and into the SVC, and the wire was removed. Next, subcutaneous lidocaine was administered to the chest. The port pocket was created after the skin incision, utilizing blunt dissection. Using blunt dissection, a subcutaneous tunnel was created that connects from the port pocket to the venotomy site. Through the peel-away sheath, the 6.6 Indian port catheter was placed. The catheter position was verified with fluoroscopy to be at the superior vena cava/right atrial junction. The port was connected to the catheter and was placed in the pocket. The venotomy site was closed with a 3-0 Vicryl subcutaneous suture. The port incision site was closed with interrupted 3-0 Vicryl subcutaneous sutures and surgical glue. Prior to closing the skin, 1 g of Ancef solution was placed in the pocket. The port was tested, flushed, and packed with heparin per routine protocol. The patient tolerated the procedure well. The patient was stable after the procedure and was transferred to the PACU. The procedure was performed under moderate sedation and with a dedicated nurse with continuous monitoring of vital signs. A permanent image of the ultrasound the neck and fluoroscopic image of the chest was saved and sent to PACS. FINDINGS: 1. Patent right internal jugular vein 2. Placement of a 6.6 Indian single lumen power port. 3. Port flushes and aspirates very well with a 10 mL syringe. No pneumothorax. IR/IR cvc insert tunnel w prt/music video producer IMPRESSION: Placement of a 6.6 Indian single-lumen power port. PLAN: - The patient will be discharged home when stable by sedation protocol. - Port may be used immediately. This procedure was performed by Juan Jensen PA-C, and directly supervised by Dr. Schulz
[2023-11-30 10:02] VITALS: BMI 24.2
[2023-11-30 10:16] VITALS: BP 112/48; PULSE 75; RESP 18; TEMP 36.7; O2SAT 99
[2023-11-30 10:40] LABS: Glucose, Whole Blood 345 mg/dL (60-115)
[2023-11-30] MEDS: Insulin Regular, Human 100 UNIT/ML 10 ML VIAL 10 UNIT IVPUSH (10:51)
--- NOTE | 2023-11-30 10:51 | MHC.SHP ---
Pre-Procedural Eval Section A - 24 Hr Update-Section A only Date of Service: 11/30/23 Section B - Complete if H&P > 30 days Chief Complaint: to facilitate chemo for pancreatic cancer Details of Present Illness: 73 y/o female with pancreatic cancer and poor iv access Relevant Family History (Specify if Yes): No Relevant Social History: None Present Medications: see Short Stay Collaborative assessment Medical History: Significant History History of Previous Operations: Relevant previous surgery/procedure and date(s) Allergies: Allergies Allergy/AdvReac Type Severity Reaction Status Date / Time doxycycline Allergy Rash Verified 11/30/23 10:14 Review of Systems Sugical H&P ROS: Negative: Constitution, Cardiovascular and Respiratory Exam Surgical H&P Exam: Normal: Heart, Normal: Lungs, Normal: Skin and Normal: Neurological Plan Port Time Spent With Patient Time: Total time managing care of this patient today ____ minutes.
--- NOTE | 2023-11-30 10:54 | PC.NURSE ---
POC was 345. Juan Jensen updated and ordered Humulin 10 units. given in preop. grace connor aware. Juan stated procedure will be completed today.
[2023-11-30 12:18] LABS: Glucose, Whole Blood 311 mg/dL (60-115)
[2023-11-30 12:20] VITALS: BP 103/63; PULSE 79; RESP 16; TEMP 36.1; O2SAT 98
[2023-11-30 12:34] VITALS: BP 113/59; PULSE 73; RESP 16; O2SAT 100
[2023-11-30 12:50] VITALS: BP 109/54; PULSE 70; RESP 16; O2SAT 100
[2023-11-30 13:04] VITALS: BP 115/61; PULSE 72; RESP 16; O2SAT 100
== END 2023-11-30 13:43 | disposition home or self-care (01) ==
PROVIDERS: Radiology Vascular & Interventional Radiology; PCP Internal Medicine; Visit Provider Internal Medicine Medical Oncology
DX: C25.0 Malignant neoplasm of head of pancreas (principal); I50.9 Heart failure, unspecified; I48.0 Paroxysmal atrial fibrillation; E11.22 Type 2 diabetes mellitus with diabetic chronic kidney disease; N18.2 Chronic kidney disease, stage 2 (mild); Z79.4 Long term (current) use of insulin; Z79.01 Long term (current) use of anticoagulants; Z79.899 Other long term (current) drug therapy; Z88.1 Allergy status to other antibiotic agents; Z90.49 Acquired absence of other specified parts of digestive tract; I73.9 Peripheral vascular disease, unspecified
CPT/HCPCS: 36561; 82947; 99152; 99153; A4364; C1769; C1788; J0690; J1642; J1644; J2250; J2310; J3010

== ENCOUNTER → 2023-11-30 11:17 | Outpatient (BNV) | payer MEDICARE, OTHER, SELFPAY | PROVIDERS: PCP Internal Medicine; Visit Provider Physician Assistant Surgical | DX: C25.9 Malignant neoplasm of pancreas, unspecified (principal) | CPT/HCPCS: 36561; 76937; 77001; 99152 ==

== ENCOUNTER 2023-12-17 11:04 | Inpatient (IN) | payer MEDICARE, OTHER, SELFPAY ==
--- NOTE | ~2023-12-17 | XR_ITS ---
EXAMINATION: XR FOOT, RIGHT CLINICAL INFORMATION: Right foot pain COMPARISON: Right foot 12/06/2023 and 09/28/2016 TECHNIQUE: AP, lateral, and oblique views of the right foot. FINDINGS: There is mild pes cavum. Calcaneal spurring is present. There has been amputation of the distal aspects of the third and fourth metatarsals. Mild degenerative changes are present at the interphalangeal joints. Moderate degenerative change seen in the midfoot. When comparison is made to the recent prior study, there's been no significant interval change. XR/XR foot RT 2V IMPRESSION: No acute finding. Degenerative changes as described above.
--- NOTE | ~2023-12-17 | MR_ITS ---
EXAMINATION: MR FOOT WITHOUT AND WITH CONTRAST, RIGHT CLINICAL INFORMATION: Nonhealing ulcer great toe. COMPARISON: Radiographs 12/17/2023. TECHNIQUE: MRI of the right foot was performed before and after the intravenous administration of 6 mL Gadavist on a high-field scanner. FINDINGS: Soft tissue ulcer at the distal aspect of the great toe which may contact the tuft, with edema, enhancement, and slight loss of T1 fatty marrow signal throughout the distal phalanx, most prominent at the tuft, compatible with osteomyelitis. No abscess. No evidence of osteomyelitis elsewhere. No metatarsal stress reaction or fracture. Prominent degenerative changes of the midfoot, particularly at the junction of the navicular and the medial/middle cuneiform, as well as the 2nd-4th TMT joints. Postsurgical changes including amputation of the 3rd and 4th metatarsal heads. Prominent subcutaneous edema along the dorsum of the foot. Diffuse fatty atrophy of the intrinsic muscles of the foot, not uncommon in diabetic patients. MR/MR foot RT wo/w con IMPRESSION: Soft tissue ulcer at the distal aspect of the great toe with osteomyelitis of the distal phalanx. No abscess.
[2023-12-17 11:12] VITALS: BP 114/58; PULSE 89; RESP 16; TEMP 36.6; O2SAT 100; BMI 23.3
[2023-12-17 11:42] LABS: Basophils Percent Auto 0.2 % (0-2); Eosinophils Absolute Auto 0.1 X10*3/uL (0.0-0.4); Eosinophils Percent Auto 1.3 % (0-4); Hematocrit 27.5 % (37.0-47.0); Hemoglobin 8.5 g/dl (12.0-16.0); Imm Gran Abs Auto 0.03 X10*3/uL (0.00-0.03); Imm Gran Pct Auto 0.5 % (0.0-0.4); Lymphocytes Absolute Auto 0.4 X10*3/uL (1.2-4.9); Lymphocytes Percent Auto 6.4 % (20-40); MANUAL DIFF FLAG SCAN; Mean Corpuscular HGB Conc 30.9 g/dl (31.0-35.0); Mean Corpuscular Hemoglobin 27.4 pg (27.0-33.0); Mean Corpuscular Volume 88.7 fL (80.0-98.0); Mean Platelet Volume 10.2 fL (9.4-12.3); Monocytes Percent Auto 0.5 % (2-11); Neutrophils Absolute Auto 5.7 x10*3/uL (2.0-8.3); Neutrophils Percent Auto 91.1 % (45-73); Platelet Count 270 X10*3/uL (160-400); Red Cell Distribution Width 18.1 % (11.0-16.0); SCAN SMEAR FLAG 1; White Blood Count 6.3 X10*3/uL (4.8-10.8)
[2023-12-17 11:51] LABS: Lactic Acid 1.3 mmol/L (0.5-2.0)
[2023-12-17 11:52] VITALS: BP 116/58; PULSE 86; RESP 14; TEMP 36.9; O2SAT 100
[2023-12-17 11:56] LABS: Alanine Aminotransferase 64 U/L (0-31); Albumin Level 3.2 g/dL (3.5-5.0); Alkaline Phosphatase 134 U/L (39-117); Anion Gap 13 (12-20); Aspartate Amino Transferase 87 U/L (5-31); Bilirubin Total 0.6 mg/dL (0.0-1.0); Blood Urea Nitrogen 25 mg/dL (9-16); Calcium 8.4 mg/dL (8.4-10.2); Carbon Dioxide 25 mmol/L (22-29); Chloride 100 mmol/L (96-108); Creatinine Clr Calc Pharmacy 40.2; Estimated Glomerular Filt Rate 51; Glucose Random 318 mg/dL (60-115); Potassium 4.3 mmol/L (3.3-5.1); Sodium 134 mmol/L (135-145); Total Protein 6.5 g/dL (6.5-8.0)
--- NOTE | 2023-12-17 11:56 | ED.WOUNDLAC ---
HPI - Wound/Laceration General Chief Complaint: Wound/Laceration Stated Complaint: Sent by wound care for antibiotics Time Seen by Provider: 12/17/23 11:33 Source: patient Mode of arrival: ambulatory Limitations: no limitations History of Present Illness ED Provider: Niki REGALADO HPI narrative: 73-year-old female history of CHF, AFib, diabetes, wound to right great toe presenting with worsening wound of right great toe, patient was advised to come in by wound care due to worsening infection that is going up her right lower extremity. Patient reports she is already trialed p.o. antibiotics they do not seem to be helping. No history of osteomyelitis. Denies chest pain, shortness of breath, nausea, vomiting, fevers, chills, numbness, tingling. Denies trauma to the area. Related Data Home Medications ?Medication ?Instructions ?Recorded ?Confirmed apixaban 5 mg tablet (Eliquis) 5 mg PO BID 09/25/23 12/14/23 atorvastatin 10 mg tablet 10 mg PO BEDTIME 09/25/23 12/14/23 empagliflozin 25 mg-metformin ER 1 tab PO DAILY 09/25/23 12/14/23 1,000 mg tablet,extended release 24hr (Synjardy XR) furosemide 40 mg tablet 40 mg PO BID@0900,1200 09/25/23 12/14/23 cefuroxime axetil 250 mg tablet 250 mg PO BID 12/14/23 12/14/23 Previous Rx's ?Medication ?Instructions ?Recorded diltiazem HCl 120 mg 120 mg PO DAILY #30 caps 10/22/23 capsule,extended release 24 hr (Cardizem CD) insulin glargine 100 unit/mL 18 unit (0.18 mL) subcut BEDTIME 10/22/23 subcutaneous solution (Lantus #1 mL U-100 Insulin) metoprolol tartrate 50 mg tablet 50 mg PO BID #60 tabs 10/22/23 ondansetron 8 mg disintegrating 8 mg PO Q8H PRN Nausea And 11/29/23 tablet Vomiting #30 tabs potassium chloride 20 mEq 20 meq PO DAILY #30 tabs 12/14/23 tablet,extended release Allergies Allergy/AdvReac Type Severity Reaction Status Date / Time doxycycline Allergy Rash Verified 12/17/23 11:14 Review of Systems Review of Systems: Yes all other systems are reviewed and are negative [facility] Past Medical History Attestation statement: The following information was validated with the patient. Source: old records reviewed and nursing notes reviewed Medical History (Updated 12/17/23 @ 12:35 by DENISE Blair) Pancreatic cancer Type 2 diabetes mellitus Pancreatic mass CHF (congestive heart failure) CKD (chronic kidney disease) Afib Family History Family History Father Prostate cancer Sister Breast cancer Social History Social History Household Members: Children Household Members Other:: Son lives upstairs (multi-family home) Housing: Other Housing Other:: two family house Do you presently have visiting nurse or other home services: Yes ([facility]) Alcohol intake: never Patient Tobacco Use Status: Never used Tobacco Smoked in Last 30 Days: No e-Cigarette/Vaping Use: Never Used Second Hand Smoke Exposure: No Use of substances other than those prescribed or required for medical reasons: No Advance Directives: No Advance Directives Information Provided: Yes Do you have a plan to hurt others: No Plan service: No Current occupational status: retired Physical Exam Vital Signs: Vital Signs: Last Vital Signs Temp 98.5 F 12/17/23 12:00 Pulse 86 12/17/23 12:00 Resp 14 12/17/23 12:00 BP 116/58 L 12/17/23 12:00 Pulse Ox 100 12/17/23 12:00 O2 Del Method Room Air 12/17/23 12:00 BMI result Body Mass Index 23.3 vss Appearance: Alert.? Oriented X3.? No acute distress.? Head: Normocephalic, atraumatic, no step-offs or deformities Eyes: Pupils equal, round and reactive to light.? Neck: Normal inspection.? Neck supple.? CVS: Normal heart rate and rhythm.? Pulses normal.? Respiratory: No respiratory distress.? Breath sounds normal.? Abdomen: Soft and nontender.? Skin: Skin warm and dry.? Normal skin color.? Normal skin turgor.? + wound to right great toe and ball of foot Extremities: No lower extremity edema.? No calf ttp. 5/5 strength to bilateral upper and lower extremities Neuro: Oriented X 3.? No motor deficit.? No sensory deficit. CN 2-12 intact Course Reevaluation(s) Reevaluation #1: CBC with a baseline normocytic anemia. Chemistry with slight elevation in BUN and creatinine. Will give IV fluids. Random glucose also elevated. Will give insulin. Transaminases mildly elevated. This could be secondary to wound. Xray foot pending. Time: 11:59 Reevaluation #2: Xray of foot pending. Plan hospital admission. Time: 12:33 Medical Decision Making Medical Decision Making [facility] Narrative: 73-year-old female presents with right great toe wound coming from wound center requesting patient received IV antibiotics. Physical exam with wound to right great toe and ball of foot . Images in chart History and physical exam concerning for infected wound to right great toe will rule out osteomyelitis. No signs of neurovascular compromise. Plan imaging, labs. Will give IV Zosyn Differential Diagnosis Differential Diagnoses: The differential diagnosis associated with the presentation includes History and physical exam concerning for infected wound to right great toe will rule out osteomyelitis. No signs of neurovascular compromise. Admission/Observation Consideration of admission/observation: Escalation of care including admission/observation considered Likely Lab Data [facility] Lab Attestation statement: I reviewed the patient's lab results. 12/17/23 11:31 12/17/23 11:31 Labs: Lab Results 12/17/23 Range/Units 11:31 WBC 6.3 (4.8-10.8) X10*3/uL RBC 3.10 L (4.20-5.50) X10*6/uL Hgb 8.5 L (12.0-16.0) g/dl Hct 27.5 L (37.0-47.0) % MCV 88.7 (80.0-98.0) fL MCH 27.4 (27.0-33.0) pg MCHC 30.9 L (31.0-35.0) g/dl RDW 18.1 H (11.0-16.0) % Plt Count 270 D (160-400) X10*3/uL MPV 10.2 (9.4-12.3) fL Immature Gran % (Auto) 0.5 H (0.0-0.4) % Neut % (Auto) 91.1 H (45-73) % Lymph % (Auto) 6.4 L (20-40) % Owsley % (Auto) 0.5 L (2-11) % Eos % (Auto) 1.3 (0-4) % Baso % (Auto) 0.2 (0-2) % Lymph # (Auto) 0.4 L (1.2-4.9) X10*3/uL [place]wsley # (Auto) 0.0 L (0.1-1.2) X10*3/uL Eos # (Auto) 0.1 (0.0-0.4) X10*3/uL Baso # (Auto) 0.0 (0.0-0.2) X10*3/uL Abs Immat Gran (auto) 0.03 (0.00-0.03) X10*3/uL Absolute Neuts (auto) 5.7 (2.0-8.3) x10*3/uL Absolute Nucleated RBC 0.000 (0.0-0.012) X10*3/uL Nucleated RBC % (auto) 0.0 (0.0-0.2) /100WBC Smear Tech's Comments VERIFIED Sodium 134 L (135-145) mmol/L Potassium 4.3 D (3.3-5.1) mmol/L Chloride 100 (96-108) mmol/L Carbon Dioxide 25 (22-29) mmol/L Anion Gap 13 (12-20) BUN 25 H (9-16) mg/dL Creatinine 1.06 (0.5-1.4) mg/dL Estim Creat Clear Calc 40.2 Estimated GFR 51 Random Glucose 318 H (60-115) mg/dL Lactic Acid 1.3 (0.5-2.0) mmol/L Calcium 8.4 (8.4-10.2) mg/dL Total Bilirubin 0.6 (0.0-1.0) mg/dL AST 87 H (5-31) U/L ALT 64 H (0-31) U/L Alkaline Phosphatase 134 H (39-117) U/L Total Protein 6.5 (6.5-8.0) g/dL Albumin 3.2 L (3.5-5.0) g/dL Independent Interpretation I performed an independent interpretation of an: Plain X-Ray Radiology Impression Discussion of test interpretation with radiology: I have reviewed the radiologist's reading. External Record Review External record reviewed: Inpatient record, Office record, Outpatient record, Prior outpatient labs, Prior outpatient radiology, Primary care record and Outside ED record Chronic Conditions Patient?s care impacted by: Diabetes and Other (afib, pancreatic mass) Critical Care Time Critical Care Time Critical Care Time: Yes Total Critical Care Time: 35 Attestation: I attest to this time spent taking care of the patient, obtaining history, physical, reviewing labs, imaging, speaking to my attending, speaking to specialist. Discharge Plan Discharge Clinical Impression: Type 2 diabetes mellitus, Open wound of right foot Patient Disposition: Still a Patient Prescriptions: No Action furosemide 40 mg tablet 40 mg PO BID@0900,1200 atorvastatin 10 mg tablet 10 mg PO BEDTIME Eliquis 5 mg tablet 5 mg PO BID Hold Instructions: Restart on Thursday 09/28 evening Synjardy XR 25-1,000 mg tablet, IR - ER, biphasic 24hr 1 tab PO DAILY ondansetron 8 mg Tablet,Disintegrating 8 mg PO Q8H PRN (Reason: Nausea And Vomiting) Qty: 30 3RF potassium chloride 20 mEq Tablet Extended Release 20 meq PO DAILY Qty: 30 3RF cefuroxime axetil 250 mg Tablet 250 mg PO BID Rx Instructions: x10 days metoprolol tartrate 50 mg Tablet 50 mg PO BID Qty: 60 0RF Protocol: Hold for SBP/HR < HOLD for SBP < : 90 HOLD for HR < : 60 diltiazem HCl [Cardizem CD] 120 mg Capsule,Extended Release 24hr 120 mg PO DAILY Qty: 30 0RF Protocol: Hold for SBP/HR < HOLD for SBP < : 90 HOLD for HR < : 60 insulin glargine [Lantus U-100 Insulin] 100 unit/mL Solution 18 unit subcut BEDTIME Qty: 1 0RF Print Language: Irish
[2023-12-17 12:00] VITALS: BP 116/58; PULSE 86; RESP 14; TEMP 36.9; O2SAT 100
--- NOTE | 2023-12-17 12:05 | PC.NURSE ---
Pt presents to ED today from wounds care for poor presentation while at schedule wound care visit today. Pt is A&Ox3, VSS, and afebrile. R foot presents with 3 circular wounds. Pt reports pain currently d/t debridement done at wound care but state otherwise she is usually without pain. PA at beside for eval, awaiting orders.
[2023-12-17 12:10] LABS: SLIDE REVIEW VERIFIED
[2023-12-17 12:47] LABS: Glucose, Whole Blood 254 mg/dL (60-115)
[2023-12-17] MEDS: Piperacillin Sodium/Tazobactam 3.375 GM in 0.9 % Sodium Chloride 50 ML IV (12:48)
[2023-12-17] MEDS: 0.9 % Sodium Chloride 500 ML IV (12:48)
[2023-12-17] MEDS: Insulin Lispro 100 UNIT/ML 3 ML VIAL 8 UNIT SUBCUT (12:48)
[2023-12-17 12:57] LABS: B Type Natriuretic Peptide 79 pg/mL (<100)
[2023-12-17 13:06] LABS: C Reactive Protein 11.93 mg/dL (< or = 0.50)
--- NOTE | 2023-12-17 13:44 | PM.IMHP ---
History of Present Illness Date of Service: 12/17/23 Chief Complaint: Foot wound 73-year-old woman with multiple medical problems presented to the ER with complaints of nonhealing right great toe wound. She failed outpatient antibiotics. She does go to the wound clinic and was sent here due to worsening infection. Patient has no history of osteomyelitis. She denied fever, chills, nausea vomiting, diarrhea. In the ER, labs within acceptable limits, vital signs stable. Patient received a dose of IV Zosyn, insulin and 500 mL of IV fluids. He will be admitted further management and treatment of worsening right foot wound Review of Systems Review of Systems: Denies any recent fever chills or decrease in appetite respiratory denies any shortness of breath or cough cardiovascular denied chest pain gastrointestinal denies any dysphagia abdominal pain nausea vomiting or diarrhea genitourinary denies any dysuria frequency or hematuria musculoskeletal denies any joint pain or swelling neuropsych denies any weakness or seizures all other systems reviewed are negative PMFSH Medical History Pancreatic cancer Type 2 diabetes mellitus Pancreatic mass CHF (congestive heart failure) CKD (chronic kidney disease) Afib Family History Father Prostate cancer Sister Breast cancer Social History Household Members: Children Household Members Other:: Son lives upstairs (multi-family home) Housing: Other Housing Other:: two family house Do you presently have visiting nurse or other home services: Yes ([facility]) Alcohol intake: never Patient Tobacco Use Status: Never used Tobacco Smoked in Last 30 Days: No e-Cigarette/Vaping Use: Never Used Second Hand Smoke Exposure: No Use of substances other than those prescribed or required for medical reasons: No Advance Directives: No Advance Directives Information Provided: Yes Do you have a plan to hurt others: No Plan service: No Current occupational status: retired Meds Allergies Allergy/AdvReac Type Severity Reaction Status Date / Time doxycycline Allergy Rash Verified 12/17/23 11:14 Active Medications: Current Medications Acetaminophen (Acetaminophen 325 Mg Tablet) 650 mg PO Q6H PRN PRN Reason: Pain, Mild (Pain Scale 1-3), fever or headache Calcium Carbonate (Calcium Carbonate 750 Mg Tab.Chew) 750 mg PO Q4H PRN PRN Reason: Heartburn Glucose (Glucose Gel 15 Gm Gel..Gram.) 15 gm PO Q15M PRN; Protocol PRN Reason: per Hypoglycemia Standing Ord. Dextrose (D10) 250 mls @ 750 mls/hr IV Q15M PRN; Protocol PRN Reason: per Hypoglycemia Standing Ord. Insulin Human Lispro (Insulin Lispro 100 Unit/Ml 3 Ml Vial) 0 unit SUBCUT QIDACHS [facility]; Protocol Magnesium Hydroxide (Milk Of Magnesia 30 Ml Oral.Susp) 30 ml PO DAILY PRN PRN Reason: Constipation Melatonin (Melatonin 3 Mg Tablet) 6 mg PO BEDTIME PRN PRN Reason: Insomnia Sodium Chloride (0.9 % Sodium Chloride Flush 3 Ml Syringe) 3 ml IVFLUSH QSHIFT [facility] Home Medications ?Medication ?Instructions ?Recorded ?Confirmed ?Last Taken ?Type apixaban 5 mg tablet (Eliquis) 5 mg PO BID 09/25/23 12/17/23 12/17/23 07:00 History atorvastatin 10 mg tablet 10 mg PO BEDTIME 09/25/23 12/17/23 12/16/23 History empagliflozin 25 mg-metformin ER 1 tab PO DAILY 09/25/23 12/17/23 12/17/23 07:00 History 1,000 mg tablet,extended release 24hr (Synjardy XR) furosemide 40 mg tablet 40 mg PO BID@0900,1200 09/25/23 12/17/23 12/17/23 07:00 History cefuroxime axetil 250 mg tablet 250 mg PO BID 12/14/23 12/17/23 12/17/23 07:00 History insulin glargine 100 unit/mL 12 unit subcut BEDTIME 12/17/23 12/17/23 12/16/23 History subcutaneous solution (Lantus U-100 Insulin) Physical Exam Vital Signs and Narrative: Vital Signs: Last Vital Signs Temp 98.5 F 12/17/23 12:00 Pulse 86 12/17/23 12:00 Resp 14 12/17/23 12:00 BP 116/58 L 12/17/23 12:00 Pulse Ox 100 12/17/23 12:00 O2 Del Method Room Air 12/17/23 12:00 BMI result Body Mass Index 23.3 Appearing in no acute distress head is normocephalic atraumatic eyes pupils are PERRLA sclera is anicteric mouth throat mucous membranes are intact and moist neck is supple no lymphadenopathy, no JVD noted lung sounds are clear to auscultation heart regular rate rhythm, clear S1, S2 positive bowel sounds, abdomen is soft, nontender neuro patient is alert x3, no focal deficits Results Labs 12/17/23 11:31 12/17/23 11:31 Labs: Laboratory Results - last 24 hr 12/17/23 12/17/23 11:31 12:44 MCV 88.7 MCH 27.4 MCHC 30.9 L RDW 18.1 H Plt Count 270 D MPV 10.2 Immature Gran % (Auto) 0.5 H Neut % (Auto) 91.1 H Lymph % (Auto) 6.4 L Lea % (Auto) 0.5 L Eos % (Auto) 1.3 Baso % (Auto) 0.2 Lymph # (Auto) 0.4 L Lea # (Auto) 0.0 L Eos # (Auto) 0.1 Baso # (Auto) 0.0 Abs Immat Gran (auto) 0.03 Absolute Neuts (auto) 5.7 Absolute Nucleated RBC 0.000 Nucleated RBC % (auto) 0.0 Smear Tech's Comments VERIFIED Anion Gap 13 Estim Creat Clear Calc 40.2 Estimated GFR 51 POC Glucose 254 H Random Glucose 318 H Lactic Acid 1.3 Calcium 8.4 Total Bilirubin 0.6 AST 87 H ALT 64 H Alkaline Phosphatase 134 H C-Reactive Protein 11.93 H B-Natriuretic Peptide 79 Total Protein 6.5 Albumin 3.2 L Assessment and Plan (1) Open wound of right foot: Status: Acute Plan 73 year old women admitted with non healing foot wound and failed outpatient antibiotics Right diabetic foot wound. Unspecified Continue IV abx with [facility] General surgery consultation>rec MRI for osteomyelitis, status post debridement to ulcer that appeared to be clean wound care Paroxysmal afib continue BB and eliquis Pancreatic mass Continue outpatient follow-up with Oncology Diabetes melllitus type 2 with hyperglycemia ss, ada diet DVT prophylaxis with eliquis full code Patient required least 48 hours for treatment of foot wound that failed outpatient treatment. Due to patient's age is at high risk for decompensation. Quality Stroke Does the patient have a stroke diagnosis?: No VTE Prior VTE?: No VTE Risk Level:: Medical - moderate - high VTE Device Contraindication: Treatment Not Indicated VTE Drug Contraindication: N/A - Med Ordered
--- NOTE | 2023-12-17 13:56 | PC.NURSE ---
Spoke to CAROLYN Sheridan in ED overflow for nursing report. Pt will be in room 2 in overflow.
--- NOTE | 2023-12-17 13:59 | PHA.MEDREC ---
Pharmacy Consult ? Medication Reconciliation Pharmacy has completed the medication reconciliation. Confirmed medications with patient. Patient stated she is using a Lantus Solostar insulin every night before bed and she injects 12 units.
[2023-12-17 15:21] VITALS: BP 104/57; PULSE 85; RESP 16; TEMP 36.3; O2SAT 98
--- NOTE | 2023-12-17 15:25 | MHC.EDTECH ---
This pct assumed care of patient at 1500 ,vitals taken and patient belonings list done ,patient A&O ,no apparent distress noted ,Plan of care continue .
--- NOTE | 2023-12-17 16:50 | PM.CNGS ---
History of Present Illness Consult details Consult date: 12/17/23 Narrative: 73-year-old female here ER because of a ?right foot open wound?. She has had this for several months. This apparently had been persistent and has not healed at all despite her being followed by the Wound Clinic She apparently had some worsening of her ?redness? around the ulcer on the big toe on the right side. She denies any fever or chills. She has multiple medical problems including atrial fibrillation. She has history of pancreatic mass. ERCP done last September 2023 with brushings did not reveal any obvious malignancy but she is currently being treated with chemotherapy. She had jaundice at that time but this seemed to have resolved. She did have a stent placed at that time as well. Review of Systems Constitutional: Constitutional: Denies chills and Denies fever(s) Cardiovascular: Cardiovascular: Denies chest pain Respiratory: Respiratory: Denies cough Gastrointestinal: Gastrointestinal: Denies abdominal pain Genitourinary: Genitourinary: Denies difficulty voiding PMFSH Past Medical History Medical History Pancreatic cancer Type 2 diabetes mellitus Pancreatic mass CHF (congestive heart failure) CKD (chronic kidney disease) Afib Family History Family History Father Prostate cancer Sister Breast cancer Social History Social History Household Members: Family Household Members Other:: Son lives upstairs (multi-family home) Housing: Other Housing Other:: two family house Do you presently have visiting nurse or other home services: Yes ([facility]) Alcohol intake: never Patient Tobacco Use Status: Never used Tobacco e-Cigarette/Vaping Use: Never Used Second Hand Smoke Exposure: No service: No Current occupational status: retired Meds Allergies Allergy/AdvReac Type Severity Reaction Status Date / Time doxycycline Allergy Rash Verified 12/17/23 11:14 Active Medications: Current Medications Acetaminophen (Acetaminophen 325 Mg Tablet) 650 mg PO Q6H PRN PRN Reason: Pain, Mild (Pain Scale 1-3), fever or headache Calcium Carbonate (Calcium Carbonate 750 Mg Tab.Chew) 750 mg PO Q4H PRN PRN Reason: Heartburn Glucose (Glucose Gel 15 Gm Gel..Gram.) 15 gm PO Q15M PRN; Protocol PRN Reason: per Hypoglycemia Standing Ord. Dextrose (D10) 250 mls @ 750 mls/hr IV Q15M PRN; Protocol PRN Reason: per Hypoglycemia Standing Ord. Insulin Human Lispro (Insulin Lispro 100 Unit/Ml 3 Ml Vial) [facility]; Protocol Magnesium Hydroxide (Milk Of Magnesia 30 Ml Oral.Susp) 30 ml PO DAILY PRN PRN Reason: Constipation Melatonin (Melatonin 3 Mg Tablet) 6 mg PO BEDTIME PRN PRN Reason: Insomnia Sodium Chloride (0.9 % Sodium Chloride Flush 3 Ml Syringe) [facility] Medications ?Medication ?Instructions ?Recorded ?Confirmed ?Last Taken ?Type apixaban 5 mg tablet (Eliquis) 5 mg PO BID 09/25/23 12/17/23 12/17/23 07:00 History atorvastatin 10 mg tablet 10 mg PO BEDTIME 09/25/23 12/17/23 12/16/23 History empagliflozin 25 mg-metformin ER 1 tab PO DAILY 09/25/23 12/17/23 12/17/23 07:00 History 1,000 mg tablet,extended release 24hr (Synjardy XR) furosemide 40 mg tablet 40 mg PO BID@0900,1200 09/25/23 12/17/23 12/17/23 07:00 History cefuroxime axetil 250 mg tablet 250 mg PO BID 12/14/23 12/17/23 12/17/23 07:00 History insulin glargine 100 unit/mL 12 unit subcut BEDTIME 12/17/23 12/17/23 12/16/23 History subcutaneous solution (Lantus U-100 Insulin) Physical Exam Vital Signs: Vital Signs: Last Vital Signs Temp 97.4 F 12/17/23 15:21 Pulse 85 12/17/23 15:21 Resp 16 12/17/23 15:21 BP 104/57 L 12/17/23 15:21 Pulse Ox 98 12/17/23 15:21 O2 Del Method Room Air 12/17/23 15:21 BMI result Body Mass Index 23.3 Const: Other: Answers questions well General: comfortable and no acute distress Orientation/consciousness: patient oriented x3 Neck: Neck: Yes no lymphadenopathy Resp: Auscultation: clear to auscultation bilaterally Cardio: Rhythm: regular rhythm GI: Palpation (GI): Soft to palpation, nontender and no guarding Neuro: General: patient oriented x3 Extrem: Other: Plantar aspect of the right foot with a deep ulcer, tunneling, with with palpable bone surface; ulcer is about 1.5 cm in widest dimension. She also has more superficial ulcers on the plantar aspect of the 1st metatarsal head; these do not extend to the bone Results Labs 12/18/23 06:11 12/18/23 06:11 Labs: Abnormal lab results 12/17/23 12/17/23 Range/Units 11:31 12:44 RBC 3.10 L (4.20-5.50) X10*6/uL Hgb 8.5 L (12.0-16.0) g/dl Hct 27.5 L (37.0-47.0) % MCHC 30.9 L (31.0-35.0) g/dl RDW 18.1 H (11.0-16.0) % Immature Gran % (Auto) 0.5 H (0.0-0.4) % Neut % (Auto) 91.1 H (45-73) % Lymph % (Auto) 6.4 L (20-40) % [place]rentiss % (Auto) 0.5 L (2-11) % Lymph # (Auto) 0.4 L (1.2-4.9) X10*3/uL [place]rentiss # (Auto) 0.0 L (0.1-1.2) X10*3/uL Sodium 134 L (135-145) mmol/L BUN 25 H (9-16) mg/dL POC Glucose 254 H (60-115) mg/dL Random Glucose 318 H (60-115) mg/dL AST 87 H (5-31) U/L ALT 64 H (0-31) U/L Alkaline Phosphatase 134 H (39-117) U/L C-Reactive Protein 11.93 H (< or = 0.50) mg/dL Albumin 3.2 L (3.5-5.0) g/dL Short CBC 12/17/23 Range/Units 11:31 WBC 6.3 (4.8-10.8) X10*3/uL Hgb 8.5 L (12.0-16.0) g/dl Hct 27.5 L (37.0-47.0) % Plt Count 270 D (160-400) X10*3/uL BMP 12/17/23 11:31 Sodium 134 L Potassium 4.3 D Chloride 100 Carbon Dioxide 25 BUN 25 H Creatinine 1.06 Calcium 8.4 Liver Function 12/17/23 Range/Units 11:31 Total Bilirubin 0.6 (0.0-1.0) mg/dL AST 87 H (5-31) U/L ALT 64 H (0-31) U/L Alkaline Phosphatase 134 H (39-117) U/L Albumin 3.2 L (3.5-5.0) g/dL All other labs normal. Assessment and Plan (1) Open wound of right foot: Status: Acute She has this deep ulcer on the plantar aspect of the right big toe and this seems to extend all the way to the bone. This may be associated with osteomyelitis of the distal phalanx. I would recommend proceeding with an MRI to further work this up. I had bluntly debrided the ulcers on both the toe as well as the metatarsal head. These appeared to be clean otherwise I will follow along while she has in the hospital. I explained explained the above to her. Procedures Date of Service Date of Service: 12/18/23
[2023-12-17] MEDS: gadobutroL 7.5 ML VIAL IVPUSH (17:53)
[2023-12-17 18:13] LABS: Glucose, Whole Blood 73 mg/dL (60-115)
--- NOTE | 2023-12-17 18:23 | MHC.EDTECH ---
patient came back from mri ,blood sugar check ,RN aware of result ,Patient was given chicken salad sandwich and anthony rajni for dinner .
[2023-12-17 20:00] VITALS: BP 123/60; PULSE 88; RESP 18; TEMP 36.1; O2SAT 98
[2023-12-17 20:09] LABS: Glucose, Whole Blood 158 mg/dL (60-115)
[2023-12-17 20:16] VITALS: BMI 24.2
[2023-12-17] MEDS: Atorvastatin Calcium 10 MG TABLET PO (20:30)
[2023-12-17] MEDS: Apixaban 5 MG TABLET PO (20:30)
[2023-12-17] MEDS: Metoprolol Tartrate 50 MG TABLET PO (20:31)
[2023-12-17] MEDS: Insulin Lispro 100 UNIT/ML 3 ML VIAL SUBCUT (20:31)
[2023-12-17] MEDS: Insulin Glargine,Hum.rec.anlog 100 UNIT/ML 10 ML VIAL 12 UNIT SUBCUT (20:31)
[2023-12-17] MEDS: 0.9 % Sodium Chloride Flush 3 ML SYRINGE IVFLUSH (20:32)
[2023-12-18] VITALS (8 sets, daily range): BP systolic 108–132; BP diastolic 55–68; PULSE 86–104; RESP 16–20; TEMP 36.1–36.8; O2SAT 94–97; BMI 24.2
[2023-12-18 06:31] LABS: Hematocrit 24.1 % (37.0-47.0); Hemoglobin 7.7 g/dl (12.0-16.0); Mean Corpuscular Hemoglobin 27.9 pg (27.0-33.0); Mean Corpuscular Volume 87.3 fL (80.0-98.0); Mean Platelet Volume 10.2 fL (9.4-12.3); Platelet Count 252 X10*3/uL (160-400); Red Blood Count 2.76 X10*6/uL (4.20-5.50); Red Cell Distribution Width 17.8 % (11.0-16.0)
[2023-12-18 06:54] LABS: Alanine Aminotransferase 61 U/L (0-31); Albumin Level 2.5 g/dL (3.5-5.0); Alkaline Phosphatase 108 U/L (39-117); Anion Gap 13 (12-20); Aspartate Amino Transferase 53 U/L (5-31); Bilirubin Total 0.4 mg/dL (0.0-1.0); Blood Urea Nitrogen 17 mg/dL (9-16); Carbon Dioxide 22 mmol/L (22-29); Chloride 104 mmol/L (96-108); Creatinine Clr Calc Pharmacy 53.9; Estimated Glomerular Filt Rate > 60; Glucose Random 172 mg/dL (60-115); Potassium 3.7 mmol/L (3.3-5.1); Sodium 135 mmol/L (135-145); Total Protein 5.2 g/dL (6.5-8.0)
[2023-12-18 07:41] LABS: Glucose, Whole Blood 155 mg/dL (60-115)
[2023-12-18 07:49] LABS: Iron 30 mcg/dL (30-160); Percent Iron Saturation 21 % (15-50); Total Iron Binding Capacity 144 mcg/dL (228-428); Unsaturated Iron Binding 114 ug/dL
[2023-12-18] MEDS: dilTIAZem HCL CD 120 MG CAP.ER.DEG PO (08:16)
[2023-12-18] MEDS: Potassium Chloride ER 20 MEQ TAB.ER.PRT PO (08:17)
[2023-12-18] MEDS: metFORMIN HCl ER 500 MG TAB.ER.24H 1000 MG PO (08:17)
[2023-12-18] MEDS: Metoprolol Tartrate 50 MG TABLET PO ×2 (08:17→20:50)
[2023-12-18] MEDS: Empagliflozin 25 MG TABLET PO (08:17)
[2023-12-18] MEDS: Furosemide 40 MG TABLET PO ×2 (08:17→11:41)
[2023-12-18] MEDS: Apixaban 5 MG TABLET PO (08:17)
[2023-12-18] MEDS: 0.9 % Sodium Chloride Flush 3 ML SYRINGE IVFLUSH ×3 (08:22→20:54)
--- NOTE | 2023-12-18 08:49 | P.PNGS_ITS ---
Subjective Subjective Date of Service: 12/18/23 Interval history: Denies pain on the right foot No new complaints Physical Exam 2 Vital Signs: Vital Signs: Last Vital Signs Temp 97.0 F 12/18/23 07:08 Pulse 104 H 12/18/23 08:17 Resp 20 12/18/23 07:08 BP 119/57 L 12/18/23 08:17 Pulse Ox 96 12/18/23 07:08 O2 Del Method Room Air 12/18/23 07:08 BMI result Body Mass Index 24.2 Const: General: comfortable and no acute distress Resp: Effort & Inspection: normal respiratory effort Cardio: Rate: tachycardic GI: Palpation (GI): Soft to palpation, not firm and no guarding Extrem: Other: Right foot - Ulcer and the big toe, plantar aspect, distal phalanx surface exposed; more superficial ulcers on the anterior aspect of the metatarsal head Objective Data Active Medications Acetaminophen (Acetaminophen 325 Mg Tablet) 650 mg PO Q6H PRN PRN Reason: Pain, Mild (Pain Scale 1-3), fever or headache Apixaban (Apixaban 5 Mg Tablet) 5 mg PO BID [facility] Last Admin: 12/18/23 08:17 Dose: 5 mg Documented By: VIKTOR Atorvastatin Calcium (Atorvastatin Calcium 10 Mg Tablet) 10 mg PO BEDTIME [facility] Last Admin: 12/17/23 20:30 Dose: 10 mg Documented By: YOLANDA Calcium Carbonate (Calcium Carbonate 750 Mg Tab.Chew) 750 mg PO Q4H PRN PRN Reason: Heartburn Diltiazem HCl (Diltiazem Hcl Cd 120 Mg Cap.Er.Deg) 120 mg PO DAILY [facility]; Protocol Last Admin: 12/18/23 08:16 Dose: 120 mg Documented By: VIKTOR Empagliflozin (Empagliflozin 25 Mg Tablet) 25 mg PO DAILY [facility] Last Admin: 12/18/23 08:17 Dose: 25 mg Documented By: VIKTOR Furosemide (Furosemide 40 Mg Tablet) 40 mg PO BID@0900,1200 [facility]; Protocol Last Admin: 12/18/23 08:17 Dose: 40 mg Documented By: VIKTOR Glucose (Glucose Gel 15 Gm Gel..Gram.) 15 gm PO Q15M PRN; Protocol PRN Reason: per Hypoglycemia Standing Ord. Dextrose (D10) 250 mls @ 750 mls/hr IV Q15M PRN; Protocol PRN Reason: per Hypoglycemia Standing Ord. Insulin Glargine (Insulin Glargine,Hum.Rec.Anlog 100 Unit/Ml 10 Ml Vial) 12 unit SUBCUT BEDTIME [facility] Last Admin: 12/17/23 20:31 Dose: 12 unit Documented By: YOLANDA Insulin Human Lispro (Insulin Lispro 100 Unit/Ml 3 Ml Vial) 0 unit SUBCUT QIDACHS [facility]; Protocol Last Admin: 12/18/23 08:20 Dose: Not Given Documented By: VIKTOR Non-Admin Reason: pt refusing Magnesium Hydroxide (Milk Of Magnesia 30 Ml Oral.Susp) 30 ml PO DAILY PRN PRN Reason: Constipation Melatonin (Melatonin 3 Mg Tablet) 6 mg PO BEDTIME PRN PRN Reason: Insomnia Metformin HCl (Metformin Hcl Er 500 Mg Tab.Er.24h) 1,000 mg PO DAILY [facility] Last Admin: 12/18/23 08:17 Dose: 1,000 mg Documented By: VIKTOR Metoprolol Tartrate (Metoprolol Tartrate 50 Mg Tablet) 50 mg PO BID [facility]; Protocol Last Admin: 12/18/23 08:17 Dose: 50 mg Documented By: VIKTOR Potassium Chloride (Potassium Chloride Er 20 Meq Tab.Er.Prt) 20 meq PO DAILY [facility] Last Admin: 12/18/23 08:17 Dose: 20 meq Documented By: VIKTOR Sodium Chloride (0.9 % Sodium Chloride Flush 3 Ml Syringe) 3 ml IVFLUSH QSHIFT [facility] Last Admin: 12/18/23 08:22 Dose: 3 ml Documented By: VIKTOR Labs 12/18/23 06:11 12/18/23 06:11 Labs: Laboratory Results - last 24 hr 12/17/23 12/17/23 12/17/23 11:31 12:44 18:10 MCV 88.7 MCH 27.4 MCHC 30.9 L RDW 18.1 H Plt Count 270 D MPV 10.2 Immature Gran % (Auto) 0.5 H Neut % (Auto) 91.1 H Lymph % (Auto) 6.4 L [place] % (Auto) 0.5 L Eos % (Auto) 1.3 Baso % (Auto) 0.2 Lymph # (Auto) 0.4 L [place] # (Auto) 0.0 L Eos # (Auto) 0.1 Baso # (Auto) 0.0 Abs Immat Gran (auto) 0.03 Absolute Neuts (auto) 5.7 Absolute Nucleated RBC 0.000 Nucleated RBC % (auto) 0.0 Smear Tech's Comments VERIFIED Anion Gap 13 Estim Creat Clear Calc 40.2 Estimated GFR 51 POC Glucose 254 H 73 Random Glucose 318 H Lactic Acid 1.3 Calcium 8.4 Iron TIBC % Saturation Unsat Iron Binding Total Bilirubin 0.6 AST 87 H ALT 64 H Alkaline Phosphatase 134 H C-Reactive Protein 11.93 H B-Natriuretic Peptide 79 Total Protein 6.5 Albumin 3.2 L 12/17/23 12/18/23 12/18/23 20:04 06:11 07:15 MCV 87.3 MCH 27.9 MCHC 32.0 RDW 17.8 H Plt Count 252 MPV 10.2 Immature Gran % (Auto) Neut % (Auto) Lymph % (Auto) [place] % (Auto) Eos % (Auto) Baso % (Auto) Lymph # (Auto) [place] # (Auto) Eos # (Auto) Baso # (Auto) Abs Immat Gran (auto) Absolute Neuts (auto) Absolute Nucleated RBC 0.000 Nucleated RBC % (auto) 0.0 Smear Tech's Comments Anion Gap 13 Estim Creat Clear Calc 53.9 Estimated GFR > 60 POC Glucose 158 H 155 H Random Glucose 172 H Lactic Acid Calcium 8.0 L Iron 30 TIBC 144 L % Saturation 21 Unsat Iron Binding 114 Total Bilirubin 0.4 AST 53 H ALT 61 H Alkaline Phosphatase 108 C-Reactive Protein B-Natriuretic Peptide Total Protein 5.2 L Albumin 2.5 L Procedures Date of Service Date of Service: 12/18/23 Progress Note: A&P Assessment and plan (1) Open wound of right foot: Status: Acute Assessment and Plan: Her MRI shows osteomyelitis of the distal phalanx I explained to her the option of amputation of the big toe versus long-term IV antibiotic treatment I explained the technique as well as the risks, benefits and alternatives She has not ready to decide at this time We will follow Dressings changed Time Spent With Patient Time: Total time managing care of this patient today ____ minutes. Quality Stroke Does the patient have a stroke diagnosis?: No VTE Prior VTE?: No VTE Risk Level:: Medical - moderate - high VTE Device Contraindication: Treatment Not Indicated VTE Drug Contraindication: N/A - Med Ordered
--- NOTE | 2023-12-18 09:30 | PM.HEMONCCN ---
Subjective - Subjective Chief complaint: Ulcer right foot Patient: known to practice within the last 3 years Consult date: 12/18/23 Primary Care Provider: Daynell Glass MD Medical Summary: Diagnosis: Metastatic pancreatic cancer 2023 CT scan of the abdomen pelvis from 09/24 revealed: There is a mass in the region of the pancreatic head which causes the double duct sign with obstruction of the pancreatic and bile duct. Possibilities should include adenocarcinoma of the pancreas. cholangiocarcinoma of the distal common bile duct is possible. Primary small bowel malignancy felt much less likely. She underwent an ERCP with stent placement on 09/[address] Cruz. Her LFTs started coming down. Unfortunately the brushings came back negative for malignancy. HPI - Consult Narrative Reason for consult: Anemia, patient on chemotherapy Narrative: Doris Tavarez is a 73 year old female with multiple medical problems including metastatic pancreatic cancer, type 2 diabetes mellitus chronic heart failure, chronic kidney disease as well as chronic diabetic foot ulcers. Patient has recently started chemotherapy, she received 3rd cycle last Sunday. She says she has chronic ulcers on the ball of her right but recently she was told by the wound clinic that right big toe also had opened up and was down to the bone. She is currently admitted for IV antibiotics. This time she feels fine. Denies any significant pain. Her right leg is swollen. She was told that she may need amputation of the right toe. She has been tolerating chemotherapy well. Review of Systems - Constitutional Reports as per HPI, Reports fatigue, Reports malaise, Denies poor appetite - Cardiovascular Reports no additional cardiovascular complaints, Denies fainting, Denies fast heart rate - Respiratory Reports no additional respiratory complaints - Gastrointestinal Reports no additional gastrointestinal complaints Oncology Screenings - ECOG Performance Status ECOG Performance Status: 1 [facility] Medical History: Medical History (Last Reviewed 12/17/23 @ 16:52 by Larry Waller MD) Afib CHF (congestive heart failure) CKD (chronic kidney disease) Pancreatic cancer Pancreatic mass Type 2 diabetes mellitus Family History: Family History (Last Reviewed 12/17/23 @ 16:52 by Larry Waller MD) Father Prostate cancer Sister Breast cancer Social History: Social History (Last Reviewed 12/17/23 @ 16:52 by Larry Waller MD) Living Situation History: Household Members: Family Household Members Other:: Son lives upstairs (multi-family home) Housing: Other Housing Other:: two family house Do you presently have visiting nurse or other home services: Yes Do you presently have visiting nurse or other home services comment: [facility] Tobacco History: Patient Tobacco Use Status: Never used Tobacco e-Cigarette/Vaping Use: Never Used Second Hand Smoke Exposure: No Occupation Assessmet: service: No Current occupational status: retired Home Medications and Allergies Current Medications: Current Medications Acetaminophen (Acetaminophen 325 Mg Tablet) 650 mg PO Q6H PRN PRN Reason: Pain, Mild (Pain Scale 1-3), fever or headache Apixaban (Apixaban 5 Mg Tablet) 5 mg PO BID [facility] Last Admin: 12/18/23 08:17 Dose: 5 mg Atorvastatin Calcium (Atorvastatin Calcium 10 Mg Tablet) 10 mg PO BEDTIME [facility] Last Admin: 12/17/23 20:30 Dose: 10 mg Calcium Carbonate (Calcium Carbonate 750 Mg Tab.Chew) 750 mg PO Q4H PRN PRN Reason: Heartburn Diltiazem HCl (Diltiazem Hcl Cd 120 Mg Cap.Er.Deg) 120 mg PO DAILY [facility]; Protocol Last Admin: 12/18/23 08:16 Dose: 120 mg Empagliflozin (Empagliflozin 25 Mg Tablet) 25 mg PO DAILY [facility] Last Admin: 12/18/23 08:17 Dose: 25 mg Furosemide (Furosemide 40 Mg Tablet) 40 mg PO BID@0900,1200 [facility]; Protocol Last Admin: 12/18/23 08:17 Dose: 40 mg Glucose (Glucose Gel 15 Gm Gel..Gram.) 15 gm PO Q15M PRN; Protocol PRN Reason: per Hypoglycemia Standing Ord. Dextrose (D10) 250 mls @ 750 mls/hr IV Q15M PRN; Protocol PRN Reason: per Hypoglycemia Standing Ord. Insulin Glargine (Insulin Glargine,Hum.Rec.Anlog 100 Unit/Ml 10 Ml Vial) 12 unit SUBCUT BEDTIME [facility] Last Admin: 12/17/23 20:31 Dose: 12 unit Insulin Human Lispro (Insulin Lispro 100 Unit/Ml 3 Ml Vial) 0 unit SUBCUT QIDACHS [facility]; Protocol Last Admin: 12/18/23 08:20 Dose: Not Given Magnesium Hydroxide (Milk Of Magnesia 30 Ml Oral.Susp) 30 ml PO DAILY PRN PRN Reason: Constipation Melatonin (Melatonin 3 Mg Tablet) 6 mg PO BEDTIME PRN PRN Reason: Insomnia Metformin HCl (Metformin Hcl Er 500 Mg Tab.Er.24h) 1,000 mg PO DAILY [facility] Last Admin: 12/18/23 08:17 Dose: 1,000 mg Metoprolol Tartrate (Metoprolol Tartrate 50 Mg Tablet) 50 mg PO BID [facility]; Protocol Last Admin: 12/18/23 08:17 Dose: 50 mg Potassium Chloride (Potassium Chloride Er 20 Meq Tab.Er.Prt) 20 meq PO DAILY [facility] Last Admin: 12/18/23 08:17 Dose: 20 meq Sodium Chloride (0.9 % Sodium Chloride Flush 3 Ml Syringe) 3 ml IVFLUSH QSHIFT [facility] Last Admin: 12/18/23 08:22 Dose: 3 ml Home Medications ?Medication ?Instructions ?Recorded ?Confirmed ?Type apixaban 5 mg tablet (Eliquis) 5 mg PO BID 09/25/23 12/17/23 History atorvastatin 10 mg tablet 10 mg PO BEDTIME 09/25/23 12/17/23 History empagliflozin 25 mg-metformin ER 1 tab PO DAILY 09/25/23 12/17/23 History 1,000 mg tablet,extended release 24hr (Synjardy XR) furosemide 40 mg tablet 40 mg PO BID@0900,1200 09/25/23 12/17/23 History cefuroxime axetil 250 mg tablet 250 mg PO BID 12/14/23 12/17/23 History insulin glargine 100 unit/mL 12 unit subcut BEDTIME 12/17/23 12/17/23 History subcutaneous solution (Lantus U-100 Insulin) Allergies Allergy/AdvReac Type Severity Reaction Status Date / Time doxycycline Allergy Rash Verified 12/17/23 11:14 Physical Exam Vital signs: Vital Signs Temp 97.0 F 12/18/23 07:08 Pulse 104 H 12/18/23 08:17 Resp 20 12/18/23 07:08 BP 119/57 L 12/18/23 08:17 Pulse Ox 96 12/18/23 07:08 O2 Del Method Room Air 12/18/23 07:08 Intake & Output 12/17/23 12/18/23 12/18/23 18:59 06:59 18:59 Intake Total 550 / 790 240 / 790 Balance 550 / 790 240 / 790 Intake: Intake, Oral Amount 240 / 240 Intake, IV Amount 550 / 550 0.9 % Sodium Chloride 500 ml @ 500 / 500 500 mls/hr IV .Q1H [facility] Rx#: [id number] Piperacillin Sodium/Tazobactam 50 / 50 3.375 gm In 0.9 % Sodium Chloride 50 ml @ 100 mls/hr IV ONCE ONE Rx#:[id number] Other: Eating (Feeding) Ability Independent Number of Unmeasured Voids 1 Urine Bathroom Last Bowel Movement 12/17/23 Weight 61.5 kg 63.9 kg Weight in Grams 64945 Weight 63.9 kg - Constitutional Present: no acute distress, chronically ill appearing - Routine HEENT Exam Eye: Present: EOMI, conjunctivae pale - Routine Neck Exam Present: supple. Absent: lymphadenopathy - Routine Respiratory Exam Present: CTAB. Absent: respiratory distress - Routine Cardiovascular Exam Cardiovascular: Present: S1, S2 - Routine Abdominal Exam Present: soft - Routine Extremities Exam Present: pedal edema Comments: Right foot with large open wound on the plantar aspect of great toe, 2nd on the ball of the foot. Hem/Onc Consult Result - Labs CBC & Chem 7: 12/18/23 06:11 12/18/23 06:11 Labs: Short CBC 12/17/23 12/18/23 Range/Units 11:31 06:11 WBC 6.3 4.0 L (4.8-10.8) X10*3/uL Hgb 8.5 L 7.7 L (12.0-16.0) g/dl Hct 27.5 L 24.1 L (37.0-47.0) % Plt Count 270 D 252 (160-400) X10*3/uL BMP 12/17/23 12/18/23 11:31 06:11 Sodium 134 L 135 Potassium 4.3 D 3.7 Chloride 100 104 Carbon Dioxide 25 22 BUN 25 H 17 H Creatinine 1.06 0.79 Calcium 8.4 8.0 L Liver Function 12/17/23 12/18/23 Range/Units 11:31 06:11 Total Bilirubin 0.6 0.4 (0.0-1.0) mg/dL AST 87 H 53 H (5-31) U/L ALT 64 H 61 H (0-31) U/L Alkaline Phosphatase 134 H 108 (39-117) U/L Albumin 3.2 L 2.5 L (3.5-5.0) g/dL Assessment and Plan Patient Active problem list reviewed?: Yes (1) Anemia Status: Acute Assessment and plan: 1. This is a 73-year-old woman with multiple medical problems and recently diagnosed metastatic pancreatic cancer on chemotherapy, admitted for right diabetic foot ulcer. She underwent FNA of pancreatic head mass at [facility] on 10/26/2023, pathology reveal adenocarcinoma, moderately differentiated. CA 19-9 elevated at 3746. She received cycle 1 day 15 chemotherapy with gemcitabine and Abraxane on 12/14/2023. She has been started on Zosyn for diabetic foot ulcer. She had surgical debridement, she may require amputation. Her worsening anemia is related to recent chemotherapy as well as infection, chronic diabetes and antibiotic use. I recommend blood transfusion to keep her hemoglobin above 8 gram/dL. She has developed mild leukopenia which should be monitored. If she becomes neutropenic, Granix can be started. I thank you for this consultation. - Time Spent With Patient Time Spent with Patient (in minutes): 20
--- NOTE | 2023-12-18 09:41 | P.PNIM_ITS ---
Subjective Subjective Date of Service: 12/18/23 Interval History: Follow-up for worsening diabetic foot wound She had debridement by surgeon yesterday Not having any pain at this time Review of Systems Review of Systems: Yes all other systems are reviewed and are negative Physical Exam 2 Vital Signs: Vital Signs: Last Vital Signs Temp 97.0 F 12/18/23 07:08 Pulse 104 H 12/18/23 08:17 Resp 20 12/18/23 07:08 BP 119/57 L 12/18/23 08:17 Pulse Ox 96 12/18/23 07:08 O2 Del Method Room Air 12/18/23 07:08 BMI result Body Mass Index 24.2 Appearing in no acute distress Right great toe lung sounds are clear to auscultation heart regular rate rhythm, clear S1, S2 positive bowel sounds, abdomen is soft, nontender neuro patient is alert x3, no focal deficits Objective Data Active Medications Acetaminophen (Acetaminophen 325 Mg Tablet) 650 mg PO Q6H PRN PRN Reason: Pain, Mild (Pain Scale 1-3), fever or headache Apixaban (Apixaban 5 Mg Tablet) 5 mg PO BID [facility] Last Admin: 12/18/23 08:17 Dose: 5 mg Documented By: VIKTOR Atorvastatin Calcium (Atorvastatin Calcium 10 Mg Tablet) 10 mg PO BEDTIME [facility] Last Admin: 12/17/23 20:30 Dose: 10 mg Documented By: YOLANDA Calcium Carbonate (Calcium Carbonate 750 Mg Tab.Chew) 750 mg PO Q4H PRN PRN Reason: Heartburn Diltiazem HCl (Diltiazem Hcl Cd 120 Mg Cap.Er.Deg) 120 mg PO DAILY [facility]; Protocol Last Admin: 12/18/23 08:16 Dose: 120 mg Documented By: VIKTOR Empagliflozin (Empagliflozin 25 Mg Tablet) 25 mg PO DAILY [facility] Last Admin: 12/18/23 08:17 Dose: 25 mg Documented By: VIKTOR Furosemide (Furosemide 40 Mg Tablet) 40 mg PO BID@0900,1200 [facility]; Protocol Last Admin: 12/18/23 08:17 Dose: 40 mg Documented By: VIKTOR Glucose (Glucose Gel 15 Gm Gel..Gram.) 15 gm PO Q15M PRN; Protocol PRN Reason: per Hypoglycemia Standing Ord. Dextrose (D10) 250 mls @ 750 mls/hr IV Q15M PRN; Protocol PRN Reason: per Hypoglycemia Standing Ord. Insulin Glargine (Insulin Glargine,Hum.Rec.Anlog 100 Unit/Ml 10 Ml Vial) 12 unit SUBCUT BEDTIME [facility] Last Admin: 12/17/23 20:31 Dose: 12 unit Documented By: YOLANDA Insulin Human Lispro (Insulin Lispro 100 Unit/Ml 3 Ml Vial) 0 unit SUBCUT QIDACHS [facility]; Protocol Last Admin: 12/18/23 08:20 Dose: Not Given Documented By: VIKTOR Non-Admin Reason: pt refusing Magnesium Hydroxide (Milk Of Magnesia 30 Ml Oral.Susp) 30 ml PO DAILY PRN PRN Reason: Constipation Melatonin (Melatonin 3 Mg Tablet) 6 mg PO BEDTIME PRN PRN Reason: Insomnia Metformin HCl (Metformin Hcl Er 500 Mg Tab.Er.24h) 1,000 mg PO DAILY [facility] Last Admin: 12/18/23 08:17 Dose: 1,000 mg Documented By: VIKTOR Metoprolol Tartrate (Metoprolol Tartrate 50 Mg Tablet) 50 mg PO BID [facility]; Protocol Last Admin: 12/18/23 08:17 Dose: 50 mg Documented By: VIKTOR Potassium Chloride (Potassium Chloride Er 20 Meq Tab.Er.Prt) 20 meq PO DAILY [facility] Last Admin: 12/18/23 08:17 Dose: 20 meq Documented By: VIKTOR Sodium Chloride (0.9 % Sodium Chloride Flush 3 Ml Syringe) 3 ml IVFLUSH QSHIFT [facility] Last Admin: 12/18/23 08:22 Dose: 3 ml Documented By: VIKTOR Labs 12/18/23 06:11 12/18/23 06:11 Labs: Laboratory Results - last 24 hr 12/17/23 12/17/23 12/17/23 11:31 12:44 18:10 MCV 88.7 MCH 27.4 MCHC 30.9 L RDW 18.1 H Plt Count 270 D MPV 10.2 Immature Gran % (Auto) 0.5 H Neut % (Auto) 91.1 H Lymph % (Auto) 6.4 L [place] % (Auto) 0.5 L Eos % (Auto) 1.3 Baso % (Auto) 0.2 Lymph # (Auto) 0.4 L [place] # (Auto) 0.0 L Eos # (Auto) 0.1 Baso # (Auto) 0.0 Abs Immat Gran (auto) 0.03 Absolute Neuts (auto) 5.7 Absolute Nucleated RBC 0.000 Nucleated RBC % (auto) 0.0 Smear Tech's Comments VERIFIED Anion Gap 13 Estim Creat Clear Calc 40.2 Estimated GFR 51 POC Glucose 254 H 73 Random Glucose 318 H Lactic Acid 1.3 Calcium 8.4 Iron TIBC % Saturation Unsat Iron Binding Total Bilirubin 0.6 AST 87 H ALT 64 H Alkaline Phosphatase 134 H C-Reactive Protein 11.93 H B-Natriuretic Peptide 79 Total Protein 6.5 Albumin 3.2 L 12/17/23 12/18/23 12/18/23 20:04 06:11 07:15 MCV 87.3 MCH 27.9 MCHC 32.0 RDW 17.8 H Plt Count 252 MPV 10.2 Immature Gran % (Auto) Neut % (Auto) Lymph % (Auto) [place] % (Auto) Eos % (Auto) Baso % (Auto) Lymph # (Auto) [place] # (Auto) Eos # (Auto) Baso # (Auto) Abs Immat Gran (auto) Absolute Neuts (auto) Absolute Nucleated RBC 0.000 Nucleated RBC % (auto) 0.0 Smear Tech's Comments Anion Gap 13 Estim Creat Clear Calc 53.9 Estimated GFR > 60 POC Glucose 158 H 155 H Random Glucose 172 H Lactic Acid Calcium 8.0 L Iron 30 TIBC 144 L % Saturation 21 Unsat Iron Binding 114 Total Bilirubin 0.4 AST 53 H ALT 61 H Alkaline Phosphatase 108 C-Reactive Protein B-Natriuretic Peptide Total Protein 5.2 L Albumin 2.5 L Assessment and Plan (1) Anemia: Status: Acute (2) Open wound of right foot: Status: Acute Plan 63 year old women admitted with non healing foot wound and failed outpatient antibiotics Right diabetic foot wound. Unspecified MRI positive for osteo Continue IV abx with [facility] General surgery consultation>status post debridement to ulcer that appeared to be clean, Plan for amputation tomorrow, hold eliquis, npo after midnight iron deficiency anemia Iron 30/TIBC 144 hematology consultation>tx PRBC to keep hemoglobin >8 Paroxysmal afib continue BB and eliquis(hold for procedure) Pancreatic mass Continue outpatient follow-up with Oncology Patient does have central access port for antibiotics if needed Diabetes melllitus type 2 with hyperglycemia ss, ada diet DVT prophylaxis with jacqui Attending Dr. Ruiz full code Continued hospital stay for treatment of foot wound that failed outpatient treatment. Due to patient's age is at high risk for decompensation. Quality Stroke Does the patient have a stroke diagnosis?: No VTE Prior VTE?: No VTE Risk Level:: Medical - moderate - high VTE Device Contraindication: Treatment Not Indicated VTE Drug Contraindication: N/A - Med Ordered
--- NOTE | 2023-12-18 10:03 | P.CDIM_ITS ---
PROVIDER RESPONSE TEXT: To clarify, the appropriate diagnosis supported by the clinical indicators: Acute QUERY TEXT: PHYSICIAN'S DOCUMENTATION REQUEST Date of Query: 12/18/2023 09:44 AM EDT Patient Name: Doris Tavarez Admit Date: 12/17/2023 Dear Larry Waller MD, A review of the medical record indicates additional documentation may be needed. Please review below and update the documentation accordingly. Clinical Indicators: Diabetic foot ulcers right MRI shows osteomyelitis of the distal phalanx Clarify which of the following accurately represents the acuity of the Osteomyelitis. Possible options might include: Acute Acute on chronic Compensated Chronic stable condition Remission Other (explain) Clinically unable to determine (explain) Thank you, Leslie Arteaga RN Use of terms such as suspected, likely, concern for, or probable (associated with a specific diagnosi s that is being evaluated, monitored, or treated as if it exists) are acceptable and can be coded in the inpatient se tting, when documented at the time of discharge. Please use your independent medical judgment in providing your response. THIS QUERY IS PART OF THE PERMANENT MEDICAL RECORD
--- NOTE | 2023-12-18 10:50 | MHC.HEMONC ---
371 Inpatient. I accessed right chest port with 20G 3/4 inch Power Haines needle at request of staff. Positive blood return. Pt tolerated procedure well.
[2023-12-18 11:24] LABS: Glucose, Whole Blood 234 mg/dL (60-115)
--- NOTE | 2023-12-18 11:32 | HO.WOUND ---
Addendum entered by Selam Zhang RN 12/19/23 07:41: Received photo from direct care nurse - assessment below and topical recommendations made after photo review. Left 2nd Toe Etiology: ?? Diabetic Wounds Wound Bed: small shallow wound beds with adherent scabs and moist tissue exposed Drainage / Odor: unknown Edges: ? irregular Ronda wound: ?dry scattered small scabs Goals of Treatment: ? Betadine to keep stable and dry and prevent wet gangrene Recommendations: 1. Turn and Reposition every 2 hours and as needed for patient comfort.? Use pillows or wedges to support off loading positions. 2. Off Load all bony prominences with use of pillows and heel boots if needed.? Apply Preventative foams where needed. ? 3. Monitor for incontinence and moisture control, use barrier creams when needed for prevention and treatment. 4. Provide adequate and supplemental nutrition.? 5. Order or Continue low air loss mattress. 6. When applicable maintain blood glucose levels per Providers order. 7. Right Great Toe and Plantar wound - Cleanse with NS moist gauze, pat dry. Apply skin prep to periwound - apply durafiber AG to wound bed cover with dry gauze, ABD pad and gauze wrap. Change every other day. 8. Left 2nd Toe - [place] with Betadine allow to dry cover with dry gauze, Daily. Re-consult wound care Nurse for wound deterioration or wound changes. Original Note: Wound Consult: Initial 73yr old?female admitted to [facility] on 12/17/23 - See progress notes and H&P for detailed history.? Wound consult placed for Right great toe and plantar Diabetic wounds.? Patient agreeable to assessment and photo documentation.? Patient reports MRI results confirm osteo and Dr. Waller is recommending amputation - the patient reports she is leaning towards amputation but has not made her final decision at this time. She will follow up with Dr. Waller this afternoon. Right Great toe and Plantar Wounds Etiology: ?? Diabetic Wounds Measurements: Great toe 2cm x 2cm x 0.5cm plantar with two open wound beds with intact island 1cm each Wound Bed: Great toe - bone exposed adherent moist yellow slough Plantar with moist pale pink wound bed with thin yellow slough Drainage / Odor: odor noted - elizabeth drainage noted on dressing Edges: ? rolled Ronda wound: ?dry thick callused to plantar - no warmth no erythema noted - No Induration, Fluctuance noted Pain: denies Goals of Treatment: ? Durafiber AG for antimicrobial properties and moisture management Recommendations: 1. Turn and Reposition every 2 hours and as needed for patient comfort.? Use pillows or wedges to support off loading positions. 2. Off Load all bony prominences with use of pillows and heel boots if needed.? Apply Preventative foams where needed. ? 3. Monitor for incontinence and moisture control, use barrier creams when needed for prevention and treatment. 4. Provide adequate and supplemental nutrition.? 5. Order or Continue low air loss mattress. 6. When applicable maintain blood glucose levels per Providers order. 7. Right Great Toe and Plantar wound - Cleanse with NS moist gauze, pat dry. Apply skin prep to periwound - apply durafiber AG to wound bed cover with dry gauze, ABD pad and gauze wrap. Change every other day. Re-consult wound care Nurse for wound deterioration or wound changes.
[2023-12-18] MEDS: Insulin Lispro 100 UNIT/ML 3 ML VIAL SUBCUT ×3 (11:40→20:51)
--- NOTE | 2023-12-18 12:03 | PC.NURSE ---
Emili Hammer RN able to come to the bedside to access pts right chest port. Pt tolerated well.
--- NOTE | 2023-12-18 13:25 | MHC.CLN ---
RE: CONSULT PT WITH 21% NONSIGNIFICANT WT LOSS X 1 YEAR AND 5 MONTHS R/T S/P CHEMO TX FOR PANCREATIC CA. PT APPEARS WELL NOURISHED AND OVER WT FOR HT DIET RX: 1800DM-APPROPRIATE RECOMMEND ADDING ENSURE MAX BID TO PROVIDE 300KCALS, 60G PROTEIN MONITOR PO INTAKE AND ENCOURAGE SUPPLEMENT SEE ALSO FULL CLINICAL NUTRITION ASSESSMENT
--- NOTE | 2023-12-18 14:40 | PM.EVENT ---
Event Note Date of Service: 12/18/23 Event Note: pt seen on afternoon rounds She states that she wants to proceed with big toe amputation instead of IV antibiotic treatment I reviewed with the technique of amputation I discussed the risks including but not limited to bleeding, infections, poor healing, as well as the benefits and alternatives She understands and wants to proceed We will put on the schedule for tomorrow for right big toe amputation Hold Eliquis dose from here on Time Spent With Patient Time: Total time managing care of this patient today ____ minutes.
[2023-12-18 16:32] LABS: Glucose, Whole Blood 221 mg/dL (60-115)
--- NOTE | 2023-12-18 18:02 | HO.SKINPHOTO ---
Location: left foot second toe. Wound care nurse consulted, advised to paint with betadine and apply dry gauze dressing.
[2023-12-18 20:20] LABS: Glucose, Whole Blood 199 mg/dL (60-115)
[2023-12-18] MEDS: Atorvastatin Calcium 10 MG TABLET PO (20:51)
[2023-12-18] MEDS: Insulin Glargine,Hum.rec.anlog 100 UNIT/ML 10 ML VIAL 12 UNIT SUBCUT (20:51)
[2023-12-19] VITALS (9 sets, daily range): BP systolic 111–120; BP diastolic 59–70; PULSE 86–97; RESP 16–18; TEMP 36.2–37.1; O2SAT 94–98
--- NOTE | 2023-12-19 07:11 | ECG_ITS ---
Test Reason : PRE OP Blood Pressure : / mmHG Vent. Rate : 088 BPM Atrial Rate : 088 BPM P-R Int : 136 ms QRS Dur : 124 ms QT Int : 384 ms P-R-T Axes : 058 007 023 degrees QTc Int : 464 ms Normal sinus rhythm Right bundle branch block Abnormal ECG When compared with ECG of 17-OCT-2023 13:15, Sinus rhythm has replaced Atrial fibrillation Vent. rate has decreased BY 57 BPM T wave inversion less evident in Anterior leads Referred By: Kianna Salgado Electronically Signed By:Cj Rider
[2023-12-19 07:22] LABS: Glucose, Whole Blood 145 mg/dL (60-115)
[2023-12-19] MEDS: dilTIAZem HCL CD 120 MG CAP.ER.DEG PO (07:39)
[2023-12-19] MEDS: Metoprolol Tartrate 50 MG TABLET PO ×2 (07:40→21:03)
--- NOTE | 2023-12-19 07:40 | P.PNIM_ITS ---
Subjective Subjective Date of Service: 12/19/23 Interval History: Follow-up for worsening diabetic foot wound She had debridement Not having any pain at this time plan for amp of toe today Review of Systems Review of Systems: Yes all other systems are reviewed and are negative Physical Exam 2 Vital Signs: Vital Signs: Last Vital Signs Temp 97.2 F 12/19/23 07:13 Pulse 93 12/19/23 07:13 Resp 16 12/19/23 07:13 BP 116/65 12/19/23 07:13 Pulse Ox 95 12/19/23 07:13 O2 Del Method Room Air 12/19/23 07:13 BMI result Body Mass Index 24.2 Appearing in no acute distress lung sounds are clear to auscultation heart regular rate rhythm, clear S1, S2 positive bowel sounds, abdomen is soft, nontender neuro patient is alert x3, no focal deficits Objective Data Active Medications Acetaminophen (Acetaminophen 325 Mg Tablet) 650 mg PO Q6H PRN PRN Reason: Pain, Mild (Pain Scale 1-3), fever or headache Apixaban (Apixaban 5 Mg Tablet) 5 mg PO BID [facility] Last Admin: 12/18/23 08:17 Dose: 5 mg Documented By: VIKTOR Atorvastatin Calcium (Atorvastatin Calcium 10 Mg Tablet) 10 mg PO BEDTIME [facility] Last Admin: 12/18/23 20:51 Dose: 10 mg Documented By: EVAN Calcium Carbonate (Calcium Carbonate 750 Mg Tab.Chew) 750 mg PO Q4H PRN PRN Reason: Heartburn Diltiazem HCl (Diltiazem Hcl Cd 120 Mg Cap.Er.Deg) 120 mg PO DAILY [facility]; Protocol Last Admin: 12/18/23 08:16 Dose: 120 mg Documented By: VIKTOR Empagliflozin (Empagliflozin 25 Mg Tablet) 25 mg PO DAILY [facility] Last Admin: 12/18/23 08:17 Dose: 25 mg Documented By: VIKTOR Furosemide (Furosemide 40 Mg Tablet) 40 mg PO BID@0900,1200 [facility]; Protocol Last Admin: 12/18/23 11:41 Dose: 40 mg Documented By: VIKTOR Glucose (Glucose Gel 15 Gm Gel..Gram.) 15 gm PO Q15M PRN; Protocol PRN Reason: per Hypoglycemia Standing Ord. Dextrose (D10) 250 mls @ 750 mls/hr IV Q15M PRN; Protocol PRN Reason: per Hypoglycemia Standing Ord. Insulin Glargine (Insulin Glargine,Hum.Rec.Anlog 100 Unit/Ml 10 Ml Vial) 12 unit SUBCUT BEDTIME [facility] Last Admin: 12/18/23 20:51 Dose: 12 unit Documented By: EVAN Insulin Human Lispro (Insulin Lispro 100 Unit/Ml 3 Ml Vial) 0 unit SUBCUT QIDACHS [facility]; Protocol Last Admin: 12/19/23 07:23 Dose: Not Given Documented By: SANDOR Non-Admin Reason: No Insulin Coverage Magnesium Hydroxide (Milk Of Magnesia 30 Ml Oral.Susp) 30 ml PO DAILY PRN PRN Reason: Constipation Melatonin (Melatonin 3 Mg Tablet) 6 mg PO BEDTIME PRN PRN Reason: Insomnia Metformin HCl (Metformin Hcl Er 500 Mg Tab.Er.24h) 1,000 mg PO DAILY [facility] Last Admin: 12/18/23 08:17 Dose: 1,000 mg Documented By: VIKTOR Metoprolol Tartrate (Metoprolol Tartrate 50 Mg Tablet) 50 mg PO BID [facility]; Protocol Last Admin: 12/18/23 20:50 Dose: 50 mg Documented By: EVAN Potassium Chloride (Potassium Chloride Er 20 Meq Tab.Er.Prt) 20 meq PO DAILY [facility] Last Admin: 12/18/23 08:17 Dose: 20 meq Documented By: VIKTOR Sodium Chloride (0.9 % Sodium Chloride Flush 3 Ml Syringe) 3 ml IVFLUSH QSHIFT [facility] Last Admin: 12/18/23 20:54 Dose: 3 ml Documented By: EVAN Labs 12/18/23 06:11 12/18/23 06:11 Labs: Laboratory Results - last 24 hr 12/18/23 12/18/23 12/18/23 06:11 07:15 11:18 POC Glucose 155 H 234 H Iron 30 TIBC 144 L % Saturation 21 Unsat Iron Binding 114 12/18/23 12/18/23 12/19/23 16:28 20:16 07:18 POC Glucose 221 H 199 H 145 H Iron TIBC % Saturation Unsat Iron Binding Microbiology Microbiology Results: Microbiology 12/17/23 12:39 Blood Culture - Preliminary Blood - Venous No growth after 24 hours. 12/17/23 11:31 Blood Culture - Preliminary Blood - Venous No growth after 24 hours. Assessment and Plan (1) Anemia: Status: Acute (2) Open wound of right foot: Status: Acute Plan 63 year old women admitted with non healing foot wound and failed outpatient antibiotics Right diabetic foot wound. Unspecified MRI positive for osteo [facility] consultation>status post debridement to ulcer that appeared to be clean, Plan for amputation today, eliquis held iron deficiency anemia Iron 30/TIBC 144 hematology consultation>tx PRBC to keep hemoglobin >8 prbc x1 today Paroxysmal afib continue BB and eliquis(hold for procedure) Pancreatic mass Continue outpatient follow-up with Oncology, s/p 3 treatments so far Patient does have central access port for antibiotics if needed Diabetes melllitus type 2 with hyperglycemia ss, ada diet DVT prophylaxis with jacqui Attending Dr. Ashraf full code Continued hospital stay for treatment of foot wound that failed outpatient treatment. Due to patient's age is at high risk for decompensation. Quality Stroke Does the patient have a stroke diagnosis?: No VTE Prior VTE?: No VTE Risk Level:: Medical - moderate - high VTE Device Contraindication: Treatment Not Indicated VTE Drug Contraindication: N/A - Med Ordered
[2023-12-19] MEDS: 0.9 % Sodium Chloride Flush 3 ML SYRINGE IVFLUSH ×3 (07:41→21:10)
--- NOTE | 2023-12-19 08:09 | PM.PNGS ---
Subjective Subjective Date of Service: 12/19/23 Interval history: No new complaints Says she feels well overall Physical Exam Vital Signs: Vital Signs: Last Vital Signs Temp 97.2 F 12/19/23 07:13 Pulse 93 12/19/23 07:13 Resp 16 12/19/23 07:13 BP 116/65 12/19/23 07:13 Pulse Ox 95 12/19/23 07:13 O2 Del Method Room Air 12/19/23 07:13 BMI result Body Mass Index 24.2 Const: General: comfortable and no acute distress Resp: Effort & Inspection: normal respiratory effort GI: Palpation (GI): Soft to palpation Extrem: Other: Right lower leg with edema, ulcers as described, unchanged Objective Data Active Medications Acetaminophen (Acetaminophen 325 Mg Tablet) 650 mg PO Q6H PRN PRN Reason: Pain, Mild (Pain Scale 1-3), fever or headache Apixaban (Apixaban 5 Mg Tablet) 5 mg PO BID [facility] Last Admin: 12/18/23 08:17 Dose: 5 mg Documented By: VIKTOR Atorvastatin Calcium (Atorvastatin Calcium 10 Mg Tablet) 10 mg PO BEDTIME [facility] Last Admin: 12/18/23 20:51 Dose: 10 mg Documented By: EVAN Calcium Carbonate (Calcium Carbonate 750 Mg Tab.Chew) 750 mg PO Q4H PRN PRN Reason: Heartburn Diltiazem HCl (Diltiazem Hcl Cd 120 Mg Cap.Er.Deg) 120 mg PO DAILY [facility]; Protocol Last Admin: 12/19/23 07:39 Dose: 120 mg Documented By: SANDOR Empagliflozin (Empagliflozin 25 Mg Tablet) 25 mg PO DAILY [facility] Last Admin: 12/19/23 07:42 Dose: Not Given Documented By: SANDOR Non-Admin Reason: NPO Furosemide (Furosemide 40 Mg Tablet) 40 mg PO BID@0900,1200 [facility]; Protocol Last Admin: 12/19/23 07:42 Dose: Not Given Documented By: SANDOR Non-Admin Reason: NPO Glucose (Glucose Gel 15 Gm Gel..Gram.) 15 gm PO Q15M PRN; Protocol PRN Reason: per Hypoglycemia Standing Ord. Dextrose (D10) 250 mls @ 750 mls/hr IV Q15M PRN; Protocol PRN Reason: per Hypoglycemia Standing Ord. Sodium Chloride (Ns) 100 mls @ 100 mls/hr IV ONCE ONE Stop: 12/19/23 08:39 Insulin Glargine (Insulin Glargine,Hum.Rec.Anlog 100 Unit/Ml 10 Ml Vial) 12 unit SUBCUT BEDTIME [facility] Last Admin: 12/18/23 20:51 Dose: 12 unit Documented By: EVAN Insulin Human Lispro (Insulin Lispro 100 Unit/Ml 3 Ml Vial) 0 unit SUBCUT QIDACHS [facility]; Protocol Last Admin: 12/19/23 07:23 Dose: Not Given Documented By: SANDOR Non-Admin Reason: No Insulin Coverage Magnesium Hydroxide (Milk Of Magnesia 30 Ml Oral.Susp) 30 ml PO DAILY PRN PRN Reason: Constipation Melatonin (Melatonin 3 Mg Tablet) 6 mg PO BEDTIME PRN PRN Reason: Insomnia Metformin HCl (Metformin Hcl Er 500 Mg Tab.Er.24h) 1,000 mg PO DAILY [facility] Last Admin: 12/19/23 07:42 Dose: Not Given Documented By: SANDOR Non-Admin Reason: NPO Metoprolol Tartrate (Metoprolol Tartrate 50 Mg Tablet) 50 mg PO BID [facility]; Protocol Last Admin: 12/19/23 07:40 Dose: 50 mg Documented By: SANDOR Potassium Chloride (Potassium Chloride Er 20 Meq Tab.Er.Prt) 20 meq PO DAILY [facility] Last Admin: 12/19/23 07:42 Dose: Not Given Documented By: SANDOR Non-Admin Reason: NPO Sodium Chloride (0.9 % Sodium Chloride Flush 3 Ml Syringe) 3 ml IVFLUSH QSHIFT [facility] Last Admin: 12/19/23 07:41 Dose: 3 ml Documented By: SANDOR Labs 12/18/23 06:11 12/18/23 06:11 Labs: Laboratory Results - last 24 hr 12/18/23 12/18/23 12/18/23 11:18 16:28 20:16 POC Glucose 234 H 221 H 199 H 12/19/23 07:18 POC Glucose 145 H Microbiology Microbiology Results: Microbiology 12/17/23 12:39 Blood Culture - Preliminary Blood - Venous No growth after 24 hours. 12/17/23 11:31 Blood Culture - Preliminary Blood - Venous No growth after 24 hours. Procedures Date of Service Date of Service: 12/19/23 Progress Note: A&P Assessment and plan (1) Osteomyelitis of great toe of right foot: Status: Acute Assessment and Plan: Bone expose on ulcer She wants to proceed with amputation the big toe She understands the technique of the procedure as well as the risks, benefits, alternatives She is on schedule for big toe amputation, right, today in the OR Time Spent With Patient Time: Total time managing care of this patient today ____ minutes. Quality Stroke Does the patient have a stroke diagnosis?: No VTE Prior VTE?: No VTE Risk Level:: Medical - moderate - high VTE Device Contraindication: Treatment Not Indicated VTE Drug Contraindication: N/A - Med Ordered
--- NOTE | 2023-12-19 09:36 | PC.NURSE ---
Addendum entered by Rm North RN 12/19/23 09:50: 15 min vitals performed. 98, 86, 18, 118/68. No complaints. Pt ready for transpo Original Note: 1 unit RBC hung @09:35. Pre op ECG performed. Pt set for transportation @ 10:00.
--- NOTE | 2023-12-19 10:05 | MHC.CM.PN ---
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
--- NOTE | 2023-12-19 10:49 | P.CONAN_ITS ---
REPLACED BY [facility] Active Problems Active Problems: All Active Problems Osteomyelitis of great toe of right foot (Acute) Anemia (Acute) Open wound of right foot (Acute) Pancreatic cancer (Acute) Hypokalemia (Acute) Hypophosphatemia (Acute) PAF (paroxysmal atrial fibrillation) (Acute) Atrial fibrillation with RVR (Acute) Pancreatic mass (Acute) Transaminitis (Acute) Type 2 diabetes mellitus (Acute) Past Medical History Medical History Osteomyelitis of great toe of right foot Pancreatic cancer Type 2 diabetes mellitus Pancreatic mass CHF (congestive heart failure) CKD (chronic kidney disease) Afib Family History Family History Father Prostate cancer Sister Breast cancer Family history of problems with anesthesia: No Surgical History History of Problems with Anesthesia: No Social History Social History Household Members: Family Household Members Other:: Son lives upstairs (multi-family home) Housing: Other Housing Other:: two family house Do you presently have visiting nurse or other home services: Yes ([facility] wound care) Alcohol intake: never Patient Tobacco Use Status: Never used Tobacco e-Cigarette/Vaping Use: Never Used Second Hand Smoke Exposure: No service: No Current occupational status: retired Meds Allergies Allergy/AdvReac Type Severity Reaction Status Date / Time doxycycline Allergy Rash Verified 12/17/23 11:14 Active Medications: Current Medications Acetaminophen (Acetaminophen 325 Mg Tablet) 650 mg PO Q6H PRN PRN Reason: Pain, Mild (Pain Scale 1-3), fever or headache Apixaban (Apixaban 5 Mg Tablet) 5 mg PO BID [facility] Last Admin: 12/18/23 08:17 Dose: 5 mg Atorvastatin Calcium (Atorvastatin Calcium 10 Mg Tablet) 10 mg PO BEDTIME [facility] Last Admin: 12/18/23 20:51 Dose: 10 mg Calcium Carbonate (Calcium Carbonate 750 Mg Tab.Chew) 750 mg PO Q4H PRN PRN Reason: Heartburn Diltiazem HCl (Diltiazem Hcl Cd 120 Mg Cap.Er.Deg) 120 mg PO DAILY [facility]; Protocol Last Admin: 12/19/23 07:39 Dose: 120 mg Empagliflozin (Empagliflozin 25 Mg Tablet) 25 mg PO DAILY [facility] Last Admin: 12/19/23 07:42 Dose: Not Given Furosemide (Furosemide 40 Mg Tablet) 40 mg PO BID@0900,1200 [facility]; Protocol Last Admin: 12/19/23 07:42 Dose: Not Given Glucose (Glucose Gel 15 Gm Gel..Gram.) 15 gm PO Q15M PRN; Protocol PRN Reason: per Hypoglycemia Standing Ord. Dextrose (D10) 250 mls @ 750 mls/hr IV Q15M PRN; Protocol PRN Reason: per Hypoglycemia Standing Ord. Insulin Glargine (Insulin Glargine,Hum.Rec.Anlog 100 Unit/Ml 10 Ml Vial) 12 unit SUBCUT BEDTIME [facility] Last Admin: 12/18/23 20:51 Dose: 12 unit Insulin Human Lispro (Insulin Lispro 100 Unit/Ml 3 Ml Vial) 0 unit SUBCUT QIDAC [facility]; Protocol Last Admin: 12/19/23 07:23 Dose: Not Given Magnesium Hydroxide (Milk Of Magnesia 30 Ml Oral.Susp) 30 ml PO DAILY PRN PRN Reason: Constipation Melatonin (Melatonin 3 Mg Tablet) 6 mg PO BEDTIME PRN PRN Reason: Insomnia Metformin HCl (Metformin Hcl Er 500 Mg Tab.Er.24h) 1,000 mg PO DAILY [facility] Last Admin: 12/19/23 07:42 Dose: Not Given Metoprolol Tartrate (Metoprolol Tartrate 50 Mg Tablet) 50 mg PO BID [facility]; Protocol Last Admin: 12/19/23 07:40 Dose: 50 mg Potassium Chloride (Potassium Chloride Er 20 Meq Tab.Er.Prt) 20 meq PO DAILY [facility] Last Admin: 12/19/23 07:42 Dose: Not Given Sodium Chloride (0.9 % Sodium Chloride Flush 3 Ml Syringe) [facility] Last Admin: 12/19/23 07:41 Dose: 3 ml Home Medications ?Medication ?Instructions ?Recorded ?Confirmed ?Last Taken ?Type apixaban 5 mg tablet (Eliquis) 5 mg PO BID 09/25/23 12/17/23 12/17/23 07:00 History atorvastatin 10 mg tablet 10 mg PO BEDTIME 09/25/23 12/17/23 12/16/23 History empagliflozin 25 mg-metformin ER 1 tab PO DAILY 09/25/23 12/17/23 12/17/23 07:00 History 1,000 mg tablet,extended release 24hr (Synjardy XR) furosemide 40 mg tablet 40 mg PO BID@0900,1200 09/25/23 12/17/23 12/17/23 07:00 History cefuroxime axetil 250 mg tablet 250 mg PO BID 12/14/23 12/17/23 12/17/23 07:00 History insulin glargine 100 unit/mL 12 unit subcut BEDTIME 12/17/23 12/17/23 12/16/23 History subcutaneous solution (Lantus U-100 Insulin) Exam Height,Weight and Vital Signs: Height 5 ft 4 in Weight 63.9 kg Last Vital Signs Temp 98.8 F 12/19/23 10:23 Pulse 90 12/19/23 10:23 Resp 18 12/19/23 10:23 BP 120/70 12/19/23 10:23 Pulse Ox 98 12/19/23 10:23 O2 Del Method Room Air 12/19/23 10:23 Pertinent Lab Results Pertinent Lab Results: Laboratory Tests 12/17/23 12/17/23 12/17/23 11:31 12:44 18:10 WBC 6.3 RBC 3.10 L Hgb 8.5 L Hct 27.5 L MCV 88.7 MCH 27.4 MCHC 30.9 L RDW 18.1 H Plt Count 270 D MPV 10.2 Immature Gran % (Auto) 0.5 H Neut % (Auto) 91.1 H Lymph % (Auto) 6.4 L Alfalfa % (Auto) 0.5 L Eos % (Auto) 1.3 Baso % (Auto) 0.2 Lymph # (Auto) 0.4 L Alfalfa # (Auto) 0.0 L Eos # (Auto) 0.1 Baso # (Auto) 0.0 Abs Immat Gran (auto) 0.03 Absolute Neuts (auto) 5.7 Absolute Nucleated RBC 0.000 Nucleated RBC % (auto) 0.0 Smear Tech's Comments VERIFIED Sodium 134 L Potassium 4.3 D Chloride 100 Carbon Dioxide 25 Anion Gap 13 BUN 25 H Creatinine 1.06 Estim Creat Clear Calc 40.2 Estimated GFR 51 POC Glucose 254 H 73 Random Glucose 318 H Lactic Acid 1.3 Calcium 8.4 Iron TIBC % Saturation Unsat Iron Binding Total Bilirubin 0.6 AST 87 H ALT 64 H Alkaline Phosphatase 134 H C-Reactive Protein 11.93 H B-Natriuretic Peptide 79 Total Protein 6.5 Albumin 3.2 L Blood Type Antibody Screen Crossmatch 12/17/23 12/18/23 12/18/23 20:04 06:11 07:15 WBC 4.0 L RBC 2.76 L Hgb 7.7 L Hct 24.1 L MCV 87.3 MCH 27.9 MCHC 32.0 RDW 17.8 H Plt Count 252 MPV 10.2 Immature Gran % (Auto) Neut % (Auto) Lymph % (Auto) Alfalfa % (Auto) Eos % (Auto) Baso % (Auto) Lymph # (Auto) Alfalfa # (Auto) Eos # (Auto) Baso # (Auto) Abs Immat Gran (auto) Absolute Neuts (auto) Absolute Nucleated RBC 0.000 Nucleated RBC % (auto) 0.0 Smear Tech's Comments Sodium 135 Potassium 3.7 Chloride 104 Carbon Dioxide 22 Anion Gap 13 BUN 17 H Creatinine 0.79 Estim Creat Clear Calc 53.9 Estimated GFR > 60 POC Glucose 158 H 155 H Random Glucose 172 H Lactic Acid Calcium 8.0 L Iron 30 TIBC 144 L % Saturation 21 Unsat Iron Binding 114 Total Bilirubin 0.4 AST 53 H ALT 61 H Alkaline Phosphatase 108 C-Reactive Protein B-Natriuretic Peptide Total Protein 5.2 L Albumin 2.5 L Blood Type Antibody Screen Crossmatch 12/18/23 12/18/23 12/18/23 11:18 16:28 20:16 WBC RBC Hgb Hct MCV MCH MCHC RDW Plt Count MPV Immature Gran % (Auto) Neut % (Auto) Lymph % (Auto) Alfalfa % (Auto) Eos % (Auto) Baso % (Auto) Lymph # (Auto) Alfalfa # (Auto) Eos # (Auto) Baso # (Auto) Abs Immat Gran (auto) Absolute Neuts (auto) Absolute Nucleated RBC Nucleated RBC % (auto) Smear Tech's Comments Sodium Potassium Chloride Carbon Dioxide Anion Gap BUN Creatinine Estim Creat Clear Calc Estimated GFR POC Glucose 234 H 221 H 199 H Random Glucose Lactic Acid Calcium Iron TIBC % Saturation Unsat Iron Binding Total Bilirubin AST ALT Alkaline Phosphatase C-Reactive Protein B-Natriuretic Peptide Total Protein Albumin Blood Type Antibody Screen Crossmatch 12/19/23 12/19/23 07:18 07:24 WBC RBC Hgb Hct MCV MCH MCHC RDW Plt Count MPV Immature Gran % (Auto) Neut % (Auto) Lymph % (Auto) Alfalfa % (Auto) Eos % (Auto) Baso % (Auto) Lymph # (Auto) Alfalfa # (Auto) Eos # (Auto) Baso # (Auto) Abs Immat Gran (auto) Absolute Neuts (auto) Absolute Nucleated RBC Nucleated RBC % (auto) Smear Tech's Comments Sodium Potassium Chloride Carbon Dioxide Anion Gap BUN Creatinine Estim Creat Clear Calc Estimated GFR POC Glucose 145 H Random Glucose Lactic Acid Calcium Iron TIBC % Saturation Unsat Iron Binding Total Bilirubin AST ALT Alkaline Phosphatase C-Reactive Protein B-Natriuretic Peptide Total Protein Albumin Blood Type B Positive Antibody Screen NEGATIVE Crossmatch See Detail Airway Mallampati Class: III (globally poor dentition) TM Dist: <=3cm Neck ROM: Limited Loose/Missing/Broken Teeth: Yes, Upper and Lower Heart: RRR Lungs: CTA Assessment and Plan Assessment Anesthesia Assessment: Anesthesia Plan Discussed and Chart Reviewed Final Anesthetic Review Family History of Problems with Anesthesia: No History of Problems with Anesthesia: No NPO: Yes ASA Class: III Final Preanesthetic Review: Meds/Allgs Chart Reviewed, Consent Obtained/Reviewed and Anes Risks/Benef Reviewed Patient Risk: Intermediate Procedure Risk: Low Anesthetic Plan Anesthetic Plan: GA Disposition: Standard PACU
--- NOTE | 2023-12-19 12:00 | MHC.CLN ---
F/U PATIENT IS CURRENTLY NPO FOR PROCEDURE, RIGHT GREAT TOE AMP. WHEN ABLE TO RESUME DIET, RECOMMEND DIABETIC 1800 KCAL WITH ENSURE MAX BID. SUPPLEMENT PROVIDES 300 KCALS, 60 G PROTEIN. FOLLOW FOR DIET ADVANCEMENT AND INTAKE.
--- NOTE | 2023-12-19 12:53 | PM.EVENT ---
Event Note Date of Service: 12/20/23 Event Note: pt had been on Jardiance, on hold for 24 hrs she understands risk of aspiration from anesthesia with this as Jardiance usually held for 3 days there is some urgency to doing the procedure in view of none exposed with osteomyelitis anesthesia recommended to cancel the procedure if not emergent so will reschedule Time Spent With Patient Time: Total time managing care of this patient today ____ minutes.
--- NOTE | 2023-12-19 13:07 | PC.NURSE ---
case cancelled for juardiance yesterday. dr. soliz was planning emergent, but after consulting with dr. reese decision to postpone surgery
--- NOTE | 2023-12-19 13:10 | PC.NURSE ---
coretext to Rm connor - ns flush given to clemencia. Rm will give hep flush per phone call.
[2023-12-19 13:36] LABS: Glucose, Whole Blood 120 mg/dL (60-115)
[2023-12-19] MEDS: Piperacillin Sodium/Tazobactam 3.375 GM in 0.9 % Sodium Chloride 50 ML IV ×2 (13:47→19:57)
[2023-12-19] MEDS: Furosemide 40 MG TABLET PO (13:53)
[2023-12-19 16:19] LABS: Glucose, Whole Blood 227 mg/dL (60-115)
[2023-12-19] MEDS: Insulin Lispro 100 UNIT/ML 3 ML VIAL SUBCUT ×2 (16:39→21:05)
[2023-12-19 20:23] LABS: Glucose, Whole Blood 246 mg/dL (60-115)
[2023-12-19] MEDS: Atorvastatin Calcium 10 MG TABLET PO (21:03)
[2023-12-19] MEDS: Insulin Glargine,Hum.rec.anlog 100 UNIT/ML 10 ML VIAL 12 UNIT SUBCUT (21:06)
[2023-12-20] MEDS: Piperacillin Sodium/Tazobactam 3.375 GM in 0.9 % Sodium Chloride 50 ML IV (02:30)
[2023-12-20 03:36] VITALS: BP 115/66; PULSE 89; RESP 18; TEMP 37.2; O2SAT 95
[2023-12-20 05:57] LABS: Hematocrit 26.7 % (37.0-47.0); Hemoglobin 8.7 g/dl (12.0-16.0); Mean Corpuscular HGB Conc 32.6 g/dl (31.0-35.0); Mean Corpuscular Hemoglobin 28.2 pg (27.0-33.0); Mean Corpuscular Volume 86.4 fL (80.0-98.0); Mean Platelet Volume 9.9 fL (9.4-12.3); Platelet Count 256 X10*3/uL (160-400); Red Blood Count 3.09 X10*6/uL (4.20-5.50); Red Cell Distribution Width 17.2 % (11.0-16.0); White Blood Count 3.4 X10*3/uL (4.8-10.8)
[2023-12-20 06:11] LABS: Anion Gap 10 (12-20); Blood Urea Nitrogen 25 mg/dL (9-16); Calcium 8.1 mg/dL (8.4-10.2); Carbon Dioxide 25 mmol/L (22-29); Chloride 100 mmol/L (96-108); Creatinine Clr Calc Pharmacy 41.3; Estimated Glomerular Filt Rate 52; Glucose Random 240 mg/dL (60-115); Potassium 3.7 mmol/L (3.3-5.1); Sodium 131 mmol/L (135-145)
--- NOTE | 2023-12-20 07:36 | PM.PNGS ---
Subjective Subjective Date of Service: 12/20/23 Interval history: No new complaints Denies pain on the big toe Physical Exam Vital Signs: Vital Signs: Last Vital Signs Temp 98.9 F 12/20/23 03:36 Pulse 89 12/20/23 03:36 Resp 18 12/20/23 03:36 BP 115/66 12/20/23 03:36 Pulse Ox 95 12/20/23 03:36 O2 Del Method Room Air 12/20/23 03:36 BMI result Body Mass Index 24.2 Const: General: comfortable and no acute distress Resp: Effort & Inspection: normal respiratory effort Cardio: Rate: regular rate GI: Palpation (GI): Soft to palpation Extrem: Other: Right big toe ulcer as previously described, right lower leg edema Objective Data Active Medications Acetaminophen (Acetaminophen 325 Mg Tablet) 650 mg PO Q6H PRN PRN Reason: Pain, Mild (Pain Scale 1-3), fever or headache Apixaban (Apixaban 5 Mg Tablet) 5 mg PO BID [facility] Last Admin: 12/18/23 08:17 Dose: 5 mg Documented By: VIKTOR Atorvastatin Calcium (Atorvastatin Calcium 10 Mg Tablet) 10 mg PO BEDTIME [facility] Last Admin: 12/19/23 21:03 Dose: 10 mg Documented By: COLLEEN Calcium Carbonate (Calcium Carbonate 750 Mg Tab.Chew) 750 mg PO Q4H PRN PRN Reason: Heartburn Diltiazem HCl (Diltiazem Hcl Cd 120 Mg Cap.Er.Deg) 120 mg PO DAILY [facility]; Protocol Last Admin: 12/19/23 07:39 Dose: 120 mg Documented By: SANDOR Furosemide (Furosemide 40 Mg Tablet) 40 mg PO BID@0900,1200 [facility]; Protocol Last Admin: 12/19/23 13:53 Dose: 40 mg Documented By: SANDOR Glucose (Glucose Gel 15 Gm Gel..Gram.) 15 gm PO Q15M PRN; Protocol PRN Reason: per Hypoglycemia Standing Ord. Dextrose (D10) 250 mls @ 750 mls/hr IV Q15M PRN; Protocol PRN Reason: per Hypoglycemia Standing Ord. Vancomycin HCl 1,500 mg/ (Sodium Chloride) 500 mls @ 333.333 mls/hr IV ONCE ONE Stop: 12/20/23 08:59 Insulin Glargine (Insulin Glargine,Hum.Rec.Anlog 100 Unit/Ml 10 Ml Vial) 12 unit SUBCUT BEDTIME [facility] Last Admin: 12/19/23 21:06 Dose: 12 unit Documented By: COLLEEN Insulin Human Lispro (Insulin Lispro 100 Unit/Ml 3 Ml Vial) 0 unit SUBCUT QIDACHS [facility]; Protocol Last Admin: 12/19/23 21:05 Dose: 4 unit Documented By: COLLEEN Magnesium Hydroxide (Milk Of Magnesia 30 Ml Oral.Susp) 30 ml PO DAILY PRN PRN Reason: Constipation Melatonin (Melatonin 3 Mg Tablet) 6 mg PO BEDTIME PRN PRN Reason: Insomnia Metoprolol Tartrate (Metoprolol Tartrate 50 Mg Tablet) 50 mg PO BID [facility]; Protocol Last Admin: 12/19/23 21:03 Dose: 50 mg Documented By: COLLEEN Pharmacy Consult (Consult Rx Vancomycin Dosing) 1 each MISCELLANE DAILY PRN PRN Reason: Consult order Potassium Chloride (Potassium Chloride Er 20 Meq Tab.Er.Prt) 20 meq PO DAILY [facility] Last Admin: 12/19/23 07:42 Dose: Not Given Documented By: SANDOR Non-Admin Reason: NPO Sodium Chloride (0.9 % Sodium Chloride Flush 3 Ml Syringe) 3 ml IVFLUSH QSHIFT [facility] Last Admin: 12/19/23 21:10 Dose: 3 ml Documented By: COLLEEN Labs 12/20/23 05:26 12/20/23 05:26 Labs: Laboratory Results - last 24 hr 12/19/23 12/19/23 12/19/23 07:24 13:27 16:16 MCV MCH MCHC RDW Plt Count MPV Absolute Nucleated RBC Nucleated RBC % (auto) Anion Gap Estim Creat Clear Calc Estimated GFR POC Glucose 120 H 227 H Random Glucose Calcium Blood Type B Positive Antibody Screen NEGATIVE Crossmatch See Detail 12/19/23 12/20/23 20:15 05:26 MCV 86.4 MCH 28.2 MCHC 32.6 RDW 17.2 H Plt Count 256 MPV 9.9 Absolute Nucleated RBC 0.000 Nucleated RBC % (auto) 0.0 Anion Gap 10 L Estim Creat Clear Calc 41.3 Estimated GFR 52 POC Glucose 246 H Random Glucose 240 H Calcium 8.1 L Blood Type Antibody Screen Crossmatch Microbiology Microbiology Results: Microbiology 12/17/23 12:39 Blood Culture - Preliminary Blood - Venous No growth after 48 hours. 12/17/23 11:31 Blood Culture - Preliminary Blood - Venous No growth after 48 hours. Procedures Date of Service Date of Service: 12/20/23 Progress Note: A&P Assessment and plan (1) Osteomyelitis of great toe of right foot: Status: Acute Assessment and Plan: Amputation of the right big toe canceled yesterday because patient was on Jardiance Rescheduled for tomorrow Patient understands NPO post midnight tonight Time Spent With Patient Time: Total time managing care of this patient today ____ minutes. Quality Stroke Does the patient have a stroke diagnosis?: No VTE Prior VTE?: No VTE Risk Level:: Medical - moderate - high VTE Device Contraindication: Treatment Not Indicated VTE Drug Contraindication: N/A - Med Ordered
[2023-12-20 07:56] LABS: Glucose, Whole Blood 231 mg/dL (60-115)
[2023-12-20 08:00] VITALS: BP 125/79; PULSE 97; RESP 14; TEMP 36.1; O2SAT 97
[2023-12-20] MEDS: dilTIAZem HCL CD 120 MG CAP.ER.DEG PO (08:17)
[2023-12-20] MEDS: Furosemide 40 MG TABLET PO ×2 (08:17→11:51)
[2023-12-20] MEDS: Metoprolol Tartrate 50 MG TABLET PO ×2 (08:17→20:27)
[2023-12-20] MEDS: Potassium Chloride ER 20 MEQ TAB.ER.PRT PO (08:17)
[2023-12-20] MEDS: vancomycin HCL 1,500 MG in 0.9 % Sodium Chloride 500 ML 333.33 MG IV (08:17)
[2023-12-20] MEDS: Insulin Lispro 100 UNIT/ML 3 ML VIAL SUBCUT ×4 (08:18→20:29)
[2023-12-20] MEDS: 0.9 % Sodium Chloride Flush 3 ML SYRINGE IVFLUSH ×3 (08:22→19:23)
--- NOTE | 2023-12-20 08:59 | PHA.PROG ---
Admission Date/Time: December 17, 2023 13:31 Indication: Skin Weight in k.9 kg Serum Creatinine - Last 168 Hours 12/17/23 12/18/23 12/20/23 11:31 06:11 05:26 Creatinine 1.06 0.79 1.03 Estimated CrCl and GFR - Last 168 Hours 12/17/23 12/18/23 12/20/23 11:31 06:11 05:26 Estim Creat Clear Calc 40.2 53.9 41.3 Estimated GFR 51 > 60 52 Vancomycin Loading Dose: 1,500 mg Current Vancomycin Dosing Regimen: 1,000mg q24h Vancomycin Monitoring using AUC goal of 400 - 600 range with trough as surrogate marker: AUC 455, predicted trough 13.6 Date and Time for next Vancomycin Level to be drawn: 12/21 @ 0600 Pharmacist Comments on Vancomycin Plan: Vancomycin dosing will take advantage of [employer] as a clinical decision support tool that uses Bayesian modeling to calculate individual patient's pharmacokinetic parameters and forecast the patient's drug concentration time course with the target goal AUC 24 range of 400 - 600 mg/L/hr.
--- NOTE | 2023-12-20 09:32 | HO.PM.IMPN ---
Subjective Subjective Date of Service: 12/20/23 Interval History: Follow-up for worsening diabetic foot wound She had debridement Not having any pain at this time Review of Systems Review of Systems: Yes all other systems are reviewed and are negative Physical Exam Vital Signs: Vital Signs: Last Vital Signs Temp 96.9 F 12/20/23 08:00 Pulse 97 12/20/23 08:00 Resp 14 12/20/23 08:00 BP 125/79 12/20/23 08:00 Pulse Ox 97 12/20/23 08:00 O2 Del Method Room Air 12/20/23 08:00 BMI result Body Mass Index 24.2 Appearing in no acute distress lung sounds are clear to auscultation heart regular rate rhythm, clear S1, S2 positive bowel sounds, abdomen is soft, nontender neuro patient is alert x3, no focal deficits Objective Data Active Medications Acetaminophen (Acetaminophen 325 Mg Tablet) 650 mg PO Q6H PRN PRN Reason: Pain, Mild (Pain Scale 1-3), fever or headache Apixaban (Apixaban 5 Mg Tablet) 5 mg PO BID [facility] Last Admin: 12/18/23 08:17 Dose: 5 mg Documented By: VIKTOR Atorvastatin Calcium (Atorvastatin Calcium 10 Mg Tablet) 10 mg PO BEDTIME [facility] Last Admin: 12/19/23 21:03 Dose: 10 mg Documented By: COLLEEN Calcium Carbonate (Calcium Carbonate 750 Mg Tab.Chew) 750 mg PO Q4H PRN PRN Reason: Heartburn Diltiazem HCl (Diltiazem Hcl Cd 120 Mg Cap.Er.Deg) 120 mg PO DAILY [facility]; Protocol Last Admin: 12/20/23 08:17 Dose: 120 mg Documented By: SANDOR Furosemide (Furosemide 40 Mg Tablet) 40 mg PO BID@0900,1200 [facility]; Protocol Last Admin: 12/20/23 08:17 Dose: 40 mg Documented By: SANDOR Glucose (Glucose Gel 15 Gm Gel..Gram.) 15 gm PO Q15M PRN; Protocol PRN Reason: per Hypoglycemia Standing Ord. Dextrose (D10) 250 mls @ 750 mls/hr IV Q15M PRN; Protocol PRN Reason: per Hypoglycemia Standing Ord. Vancomycin HCl 1,000 mg/ (Sodium Chloride) 270 mls @ 270 mls/hr IV Q24H [facility] Insulin Glargine (Insulin Glargine,Hum.Rec.Anlog 100 Unit/Ml 10 Ml Vial) 12 unit SUBCUT BEDTIME [facility] Last Admin: 12/19/23 21:06 Dose: 12 unit Documented By: COLLEEN Insulin Human Lispro (Insulin Lispro 100 Unit/Ml 3 Ml Vial) 0 unit SUBCUT QIDACHS [facility]; Protocol Last Admin: 12/20/23 08:18 Dose: 4 unit Documented By: SANDOR Magnesium Hydroxide (Milk Of Magnesia 30 Ml Oral.Susp) 30 ml PO DAILY PRN PRN Reason: Constipation Melatonin (Melatonin 3 Mg Tablet) 6 mg PO BEDTIME PRN PRN Reason: Insomnia Metoprolol Tartrate (Metoprolol Tartrate 50 Mg Tablet) 50 mg PO BID [facility]; Protocol Last Admin: 12/20/23 08:17 Dose: 50 mg Documented By: SANDOR Pharmacy Consult (Consult Rx Vancomycin Dosing) 1 each MISCELLANE DAILY PRN PRN Reason: Consult order Potassium Chloride (Potassium Chloride Er 20 Meq Tab.Er.Prt) 20 meq PO DAILY [facility] Last Admin: 12/20/23 08:17 Dose: 20 meq Documented By: SANDOR Sodium Chloride (0.9 % Sodium Chloride Flush 3 Ml Syringe) 3 ml IVFLUSH QSHIFT [facility] Last Admin: 12/20/23 08:22 Dose: 3 ml Documented By: SANDOR Labs 12/20/23 05:26 12/20/23 05:26 Labs: Laboratory Results - last 24 hr 12/19/23 12/19/23 12/19/23 07:24 13:27 16:16 MCV MCH MCHC RDW Plt Count MPV Absolute Nucleated RBC Nucleated RBC % (auto) Anion Gap Estim Creat Clear Calc Estimated GFR POC Glucose 120 H 227 H Random Glucose Calcium Blood Type B Positive Antibody Screen NEGATIVE Crossmatch See Detail 12/19/23 12/20/23 12/20/23 20:15 05:26 07:24 MCV 86.4 MCH 28.2 MCHC 32.6 RDW 17.2 H Plt Count 256 MPV 9.9 Absolute Nucleated RBC 0.000 Nucleated RBC % (auto) 0.0 Anion Gap 10 L Estim Creat Clear Calc 41.3 Estimated GFR 52 POC Glucose 246 H 231 H Random Glucose 240 H Calcium 8.1 L Blood Type Antibody Screen Crossmatch Microbiology Microbiology Results: Microbiology 12/17/23 12:39 Blood Culture - Preliminary Blood - Venous No growth after 48 hours. 12/17/23 11:31 Blood Culture - Preliminary Blood - Venous No growth after 48 hours. Assessment and Plan (1) Anemia: Status: Acute (2) Open wound of right foot: Status: Acute Plan 63 year old women admitted with non healing foot wound and failed outpatient antibiotics Right diabetic foot wound. Unspecified MRI positive for osteo Continue IV vancomycin General surgery consultation>status post debridement to ulcer that appeared to be clean Plan for toe amputation possibly sunday, eliquis and jardiance on hold iron deficiency anemia HH today 8.7/26.7 Iron 30/TIBC 144 hematology consultation>tx PRBC to keep hemoglobin >8 s/p PRBC x1 12/19/23 Hyponatrema mild, chronic check urine lytes monitor Paroxysmal afib continue BB and eliquis(hold for procedure) Pancreatic mass Continue outpatient follow-up with Oncology, s/p 3 treatments so far Patient does have central access port for antibiotics if needed Diabetes melllitus type 2 with hyperglycemia ss, ada diet DVT prophylaxis with jacqui Attending Dr. Ashraf full code Continued hospital stay for treatment of foot wound that failed outpatient treatment. Due to patient's age is at high risk for decompensation. Quality Stroke Does the patient have a stroke diagnosis?: No VTE Prior VTE?: No VTE Risk Level:: Medical - moderate - high VTE Device Contraindication: Treatment Not Indicated VTE Drug Contraindication: N/A - Med Ordered
[2023-12-20 11:40] LABS: Glucose, Whole Blood 237 mg/dL (60-115)
[2023-12-20 16:00] VITALS: BP 121/72; PULSE 88; RESP 14; TEMP 36.2; O2SAT 98
[2023-12-20 16:38] LABS: Glucose, Whole Blood 215 mg/dL (60-115)
[2023-12-20 19:17] VITALS: BP 133/65; PULSE 96; RESP 18; TEMP 36.6; O2SAT 98
[2023-12-20 20:25] LABS: Glucose, Whole Blood 249 mg/dL (60-115)
[2023-12-20 20:27] VITALS: BP 133/64; PULSE 95
[2023-12-20] MEDS: Atorvastatin Calcium 10 MG TABLET PO (20:27)
[2023-12-20] MEDS: Insulin Glargine,Hum.rec.anlog 100 UNIT/ML 10 ML VIAL 12 UNIT SUBCUT (20:29)
[2023-12-21] VITALS (11 sets, daily range): BP systolic 106–131; BP diastolic 55–67; PULSE 81–92; RESP 12–18; TEMP 36.1–37.3; O2SAT 94–100
[2023-12-21 06:38] LABS: Creatinine Clr Calc Pharmacy 50.1; Estimated Glomerular Filt Rate > 60
[2023-12-21 07:58] LABS: Glucose, Whole Blood 192 mg/dL (60-115)
[2023-12-21] MEDS: dilTIAZem HCL CD 120 MG CAP.ER.DEG PO (08:01)
[2023-12-21] MEDS: vancomycin HCL 1,000 MG in 0.9 % Sodium Chloride 250 ML 270 MG IV (08:02)
[2023-12-21] MEDS: Metoprolol Tartrate 50 MG TABLET PO ×2 (08:02→21:24)
[2023-12-21] MEDS: 0.9 % Sodium Chloride Flush 3 ML SYRINGE IVFLUSH ×2 (08:05→21:25)
--- NOTE | 2023-12-21 09:45 | HO.PM.IMPN ---
Subjective Subjective Date of Service: 12/21/23 Interval History: seen and examined this AM no new complaints awaiting surgery -- per RN, scheduled for later this afternoon. Review of Systems Negative except HPI/interval history. Physical Exam Vital Signs: Vital Signs: Last Vital Signs Temp 97.9 F 12/21/23 08:00 Pulse 92 12/21/23 08:00 Resp 12 12/21/23 08:00 BP 111/60 12/21/23 08:00 Pulse Ox 94 12/21/23 08:00 O2 Del Method Room Air 12/21/23 08:00 BMI result Body Mass Index 24.2 Const: Other: General - no acute distress, appears comfortable Cardiovascular - regular rate and rhythm, S1-S2 Lungs - normal respiratory effort, clear to auscultation bilaterally, no wheezing Abdomen - soft, nontender, no rebound or guarding Extremities - R foot ulcers Neuro - awake and alert, no focal deficits Objective Data Active Medications Acetaminophen (Acetaminophen 325 Mg Tablet) 650 mg PO Q6H PRN PRN Reason: Pain, Mild (Pain Scale 1-3), fever or headache Apixaban (Apixaban 5 Mg Tablet) 5 mg PO BID [facility] Last Admin: 12/18/23 08:17 Dose: 5 mg Documented By: VIKTOR Atorvastatin Calcium (Atorvastatin Calcium 10 Mg Tablet) 10 mg PO BEDTIME [facility] Last Admin: 12/20/23 20:27 Dose: 10 mg Documented By: COLLEEN Calcium Carbonate (Calcium Carbonate 750 Mg Tab.Chew) 750 mg PO Q4H PRN PRN Reason: Heartburn Diltiazem HCl (Diltiazem Hcl Cd 120 Mg Cap.Er.Deg) 120 mg PO DAILY [facility]; Protocol Last Admin: 12/21/23 08:01 Dose: 120 mg Documented By: SANDOR Furosemide (Furosemide 40 Mg Tablet) 40 mg PO BID@0900,1200 [facility]; Protocol Last Admin: 12/21/23 08:07 Dose: Not Given Documented By: SANDOR Non-Admin Reason: NPO Glucose (Glucose Gel 15 Gm Gel..Gram.) 15 gm PO Q15M PRN; Protocol PRN Reason: per Hypoglycemia Standing Ord. Dextrose (D10) 250 mls @ 750 mls/hr IV Q15M PRN; Protocol PRN Reason: per Hypoglycemia Standing Ord. Vancomycin HCl 1,000 mg/ (Sodium Chloride) 270 mls @ 270 mls/hr IV Q24H [facility] Last Infusion: 12/21/23 09:05 Dose: Infused Documented By: SANDOR Insulin Glargine (Insulin Glargine,Hum.Rec.Anlog 100 Unit/Ml 10 Ml Vial) 12 unit SUBCUT BEDTIME [facility] Last Admin: 12/20/23 20:29 Dose: 12 unit Documented By: COLLEEN Insulin Human Lispro (Insulin Lispro 100 Unit/Ml 3 Ml Vial) 0 unit SUBCUT QIDACHS [facility]; Protocol Last Admin: 12/21/23 08:06 Dose: Not Given Documented By: SANDOR Non-Admin Reason: NPO Magnesium Hydroxide (Milk Of Magnesia 30 Ml Oral.Susp) 30 ml PO DAILY PRN PRN Reason: Constipation Melatonin (Melatonin 3 Mg Tablet) 6 mg PO BEDTIME PRN PRN Reason: Insomnia Metoprolol Tartrate (Metoprolol Tartrate 50 Mg Tablet) 50 mg PO BID [facility]; Protocol Last Admin: 12/21/23 08:02 Dose: 50 mg Documented By: SANDOR Pharmacy Consult (Consult Rx Vancomycin Dosing) 1 each MISCELLANE DAILY PRN PRN Reason: Consult order Potassium Chloride (Potassium Chloride Er 20 Meq Tab.Er.Prt) 20 meq PO DAILY [facility] Last Admin: 12/21/23 08:07 Dose: Not Given Documented By: SANDOR Non-Admin Reason: NPO Sodium Chloride (0.9 % Sodium Chloride Flush 3 Ml Syringe) 3 ml IVFLUSH QSHIFT [facility] Last Admin: 12/21/23 08:05 Dose: 3 ml Documented By: SANDOR Labs 12/20/23 05:26 12/21/23 05:38 Labs: Laboratory Results - last 24 hr 12/20/23 12/20/23 12/20/23 11:12 14:20 16:27 Hold Purple Top Estim Creat Clear Calc Estimated GFR POC Glucose 237 H 215 H Ur Random Sodium 80.0 Ur Random Potassium 20.0 Ur Random Chloride 83.0 12/20/23 12/21/23 12/21/23 20:19 05:38 07:54 Hold Purple Top SEE NOTE Estim Creat Clear Calc 50.1 Estimated GFR > 60 POC Glucose 249 H 192 H Ur Random Sodium Ur Random Potassium Ur Random Chloride Assessment and Plan (1) Osteomyelitis of great toe of right foot: Status: Acute Plan 63 yo diabetic who was admitted on 12/16 for non-healing ulcers, found to have osteomyelitis. Has been poorly responsive to IV antibiotics and she is planned for surgery today. 1. Diabetic foot infection, Right 1a. 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 Acute on chronic anemia multifactorial including iron def, acute illness and recent chemo seen by oncology with recs to keep hb > 8 - s/p 1 prbc on 12/18 3. HypoNa chronic and mild monitor 4. PAF continue metoprolol eliquis on hold for surgery 5. DM on synjardy at home, on hold (for surgery) sliding scale for now 6. Pancreatic adenocarcinoma outpatient f/u Full Code DVT pptx -- eliquis (on hold for surgery -- will start when okay post-op) Quality Stroke Does the patient have a stroke diagnosis?: No VTE Prior VTE?: No VTE Risk Level:: Medical - moderate - high VTE Device Contraindication: Treatment Not Indicated VTE Drug Contraindication: N/A - Med Ordered
--- NOTE | 2023-12-21 10:20 | PM.PNGS ---
Subjective Subjective Date of Service: 12/25/23 Interval history: Denies new complaints Feels well overall Physical Exam Vital Signs: Vital Signs: Last Vital Signs Temp 97.9 F 12/21/23 08:00 Pulse 92 12/21/23 08:00 Resp 12 12/21/23 08:00 BP 111/60 12/21/23 08:00 Pulse Ox 94 12/21/23 08:00 O2 Del Method Room Air 12/21/23 08:00 BMI result Body Mass Index 24.2 Const: General: comfortable and no acute distress Resp: Effort & Inspection: normal respiratory effort Cardio: Rate: regular rate GI: Palpation (GI): Soft to palpation Extrem: Other: Right big toe ulcer as described, also with some more superficial ulcers on the metatarsal head on the plantar aspect Objective Data Active Medications Acetaminophen (Acetaminophen 325 Mg Tablet) 650 mg PO Q6H PRN PRN Reason: Pain, Mild (Pain Scale 1-3), fever or headache Apixaban (Apixaban 5 Mg Tablet) 5 mg PO BID [facility] Last Admin: 12/18/23 08:17 Dose: 5 mg Documented By: VIKTOR Atorvastatin Calcium (Atorvastatin Calcium 10 Mg Tablet) 10 mg PO BEDTIME [facility] Last Admin: 12/20/23 20:27 Dose: 10 mg Documented By: COLLEEN Calcium Carbonate (Calcium Carbonate 750 Mg Tab.Chew) 750 mg PO Q4H PRN PRN Reason: Heartburn Diltiazem HCl (Diltiazem Hcl Cd 120 Mg Cap.Er.Deg) 120 mg PO DAILY [facility]; Protocol Last Admin: 12/21/23 08:01 Dose: 120 mg Documented By: SANDOR Furosemide (Furosemide 40 Mg Tablet) 40 mg PO BID@0900,1200 [facility]; Protocol Last Admin: 12/21/23 08:07 Dose: Not Given Documented By: SANDOR Non-Admin Reason: NPO Glucose (Glucose Gel 15 Gm Gel..Gram.) 15 gm PO Q15M PRN; Protocol PRN Reason: per Hypoglycemia Standing Ord. Dextrose (D10) 250 mls @ 750 mls/hr IV Q15M PRN; Protocol PRN Reason: per Hypoglycemia Standing Ord. Vancomycin HCl 1,000 mg/ (Sodium Chloride) 270 mls @ 270 mls/hr IV Q24H [facility] Last Infusion: 12/21/23 09:05 Dose: Infused Documented By: SANDOR Dextrose/Lactated Ringer's (D5lr) 1,000 mls @ 80 mls/hr IVCONT .[id number] [facility] Insulin Glargine (Insulin Glargine,Hum.Rec.Anlog 100 Unit/Ml 10 Ml Vial) 12 unit SUBCUT BEDTIME [facility] Last Admin: 12/20/23 20:29 Dose: 12 unit Documented By: COLLEEN Insulin Human Lispro (Insulin Lispro 100 Unit/Ml 3 Ml Vial) 0 unit SUBCUT QIDACHS [facility]; Protocol Last Admin: 12/21/23 08:06 Dose: Not Given Documented By: SANDOR Non-Admin Reason: NPO Magnesium Hydroxide (Milk Of Magnesia 30 Ml Oral.Susp) 30 ml PO DAILY PRN PRN Reason: Constipation Melatonin (Melatonin 3 Mg Tablet) 6 mg PO BEDTIME PRN PRN Reason: Insomnia Metoprolol Tartrate (Metoprolol Tartrate 50 Mg Tablet) 50 mg PO BID [facility]; Protocol Last Admin: 12/21/23 08:02 Dose: 50 mg Documented By: SANDOR Pharmacy Consult (Consult Rx Vancomycin Dosing) 1 each MISCELLANE DAILY PRN PRN Reason: Consult order Potassium Chloride (Potassium Chloride Er 20 Meq Tab.Er.Prt) 20 meq PO DAILY [facility] Last Admin: 12/21/23 08:07 Dose: Not Given Documented By: SANDOR Non-Admin Reason: NPO Sodium Chloride (0.9 % Sodium Chloride Flush 3 Ml Syringe) 3 ml IVFLUSH QSHIFT [facility] Last Admin: 12/21/23 08:05 Dose: 3 ml Documented By: SANDOR Labs 12/20/23 05:26 12/25/23 05:03 Labs: Laboratory Results - last 24 hr 12/20/23 12/20/23 12/20/23 11:12 14:20 16:27 Hold Purple Top Estim Creat Clear Calc Estimated GFR POC Glucose 237 H 215 H Ur Random Sodium 80.0 Ur Random Potassium 20.0 Ur Random Chloride 83.0 12/20/23 12/21/23 12/21/23 20:19 05:38 07:54 Hold Purple Top SEE NOTE Estim Creat Clear Calc 50.1 Estimated GFR > 60 POC Glucose 249 H 192 H Ur Random Sodium Ur Random Potassium Ur Random Chloride Procedures Date of Service Date of Service: 12/25/23 Progress Note: A&P Assessment and plan (1) Osteomyelitis of great toe of right foot: Status: Acute Assessment and Plan: The patient wants to proceed with toe amputation Has been off Jardiance x3 days She understands the technique of the procedure as well as the risks, benefits, and alternatives Osteomyelitis limited to the distal phalanx of the right big Time Spent With Patient Time: Total time managing care of this patient today ____ minutes. Quality Stroke Does the patient have a stroke diagnosis?: No VTE Prior VTE?: No VTE Risk Level:: Medical - moderate - high VTE Device Contraindication: Treatment Not Indicated VTE Drug Contraindication: N/A - Med Ordered
[2023-12-21] MEDS: Dextrose 5 % and Lactated Ring 1,000 ML 80 ML IVCONT (10:29)
--- NOTE | 2023-12-21 11:02 | MHC.CLN ---
F/U SURGERY CANCELLED 12/18. NOW NPO FOR PROCEDURE TODAY, RIGHT GREAT TOE AMP. WHEN ABLE TO RESUME DIET, RECOMMEND DIABETIC 1800 KCAL WITH ENSURE MAX BID. SUPPLEMENT PROVIDES 300 KCALS, 60 G PROTEIN. HX OF GOOD PO EXCLUDING TIME NPO. FOLLOW FOR DIET ADVANCEMENT AND INTAKE.
--- NOTE | 2023-12-21 11:28 | MHC.CM.PN ---
Per MD rounds patient will have surgery today. Will need PT eval post op. STR @ [facility] vs home w/ [id number].
[2023-12-21 11:35] LABS: Glucose, Whole Blood 179 mg/dL (60-115)
--- NOTE | 2023-12-21 13:09 | HO.ANESPROP2 ---
[facility] Active Problems Active Problems: All Active Problems (Updated 12/19/23 @ 08:10 by Larry Waller MD) Osteomyelitis of great toe of right foot (Acute) Anemia (Acute) Open wound of right foot (Acute) Pancreatic cancer (Acute) Hypokalemia (Acute) Hypophosphatemia (Acute) PAF (paroxysmal atrial fibrillation) (Acute) Atrial fibrillation with RVR (Acute) Pancreatic mass (Acute) Transaminitis (Acute) Type 2 diabetes mellitus (Acute) Past Medical History Medical History (Updated 12/21/23 @ 13:10 by Karey Herrera) Port-A-Cath in place Osteomyelitis of great toe of right foot Pancreatic cancer Type 2 diabetes mellitus Pancreatic mass CHF (congestive heart failure) CKD (chronic kidney disease) Afib Family History Family History Father Prostate cancer Sister Breast cancer Family history of problems with anesthesia: No Surgical History Surgical History (Updated 12/21/23 @ 13:10 by Karey Herrera) H/O dilation and curettage H/O eye surgery [place] teeth removed History of cholecystectomy History of Problems with Anesthesia: No Social History Social History Household Members: Family Household Members Other:: Son lives upstairs (multi-family home) Housing: Other Housing Other:: two family house Do you presently have visiting nurse or other home services: Yes ([facility] wound [facility]) Alcohol intake: never Patient Tobacco Use Status: Never used Tobacco e-Cigarette/Vaping Use: Never Used Second Hand Smoke Exposure: No service: No Current occupational status: retired Meds Allergies Allergy/AdvReac Type Severity Reaction Status Date / Time doxycycline Allergy Rash Verified 12/21/23 13:10 Active Medications: Current Medications Acetaminophen (Acetaminophen 325 Mg Tablet) 650 mg PO Q6H PRN PRN Reason: Pain, Mild (Pain Scale 1-3), fever or headache Apixaban (Apixaban 5 Mg Tablet) 5 mg PO BID [facility] Last Admin: 12/18/23 08:17 Dose: 5 mg Atorvastatin Calcium (Atorvastatin Calcium 10 Mg Tablet) 10 mg PO BEDTIME [facility] Last Admin: 12/20/23 20:27 Dose: 10 mg Calcium Carbonate (Calcium Carbonate 750 Mg Tab.Chew) 750 mg PO Q4H PRN PRN Reason: Heartburn Diltiazem HCl (Diltiazem Hcl Cd 120 Mg Cap.Er.Deg) 120 mg PO DAILY [facility]; Protocol Last Admin: 12/21/23 08:01 Dose: 120 mg Furosemide (Furosemide 40 Mg Tablet) 40 mg PO BID@0900,1200 [facility]; Protocol Last Admin: 12/21/23 11:53 Dose: Not Given Glucose (Glucose Gel 15 Gm Gel..Gram.) 15 gm PO Q15M PRN; Protocol PRN Reason: per Hypoglycemia Standing Ord. Dextrose (D10) 250 mls @ 750 mls/hr IV Q15M PRN; Protocol PRN Reason: per Hypoglycemia Standing Ord. Vancomycin HCl 1,000 mg/ (Sodium Chloride) 270 mls @ 270 mls/hr IV Q24H [facility] Last Infusion: 12/21/23 09:05 Dose: Infused Dextrose/Lactated Ringer's (D5lr) 1,000 mls @ 80 mls/hr IVCONT .[id number] [facility] Last Admin: 12/21/23 10:29 Dose: 80 mls/hr Insulin Glargine (Insulin Glargine,Hum.Rec.Anlog 100 Unit/Ml 10 Ml Vial) 12 unit SUBCUT BEDTIME [facility] Last Admin: 12/20/23 20:29 Dose: 12 unit Insulin Human Lispro (Insulin Lispro 100 Unit/Ml 3 Ml Vial) 0 unit SUBCUT QIDACHS [facility]; Protocol Last Admin: 12/21/23 11:52 Dose: Not Given Magnesium Hydroxide (Milk Of Magnesia 30 Ml Oral.Susp) 30 ml PO DAILY PRN PRN Reason: Constipation Melatonin (Melatonin 3 Mg Tablet) 6 mg PO BEDTIME PRN PRN Reason: Insomnia Metoprolol Tartrate (Metoprolol Tartrate 50 Mg Tablet) 50 mg PO BID [facility]; Protocol Last Admin: 12/21/23 08:02 Dose: 50 mg Pharmacy Consult (Consult Rx Vancomycin Dosing) 1 each MISCELLANE DAILY PRN PRN Reason: Consult order Potassium Chloride (Potassium Chloride Er 20 Meq Tab.Er.Prt) 20 meq PO DAILY [facility] Last Admin: 12/21/23 08:07 Dose: Not Given Sodium Chloride (0.9 % Sodium Chloride Flush 3 Ml Syringe) 3 ml IVFLUSH QSHIFT [facility] Last Admin: 12/21/23 08:05 Dose: 3 ml Home Medications ?Medication ?Instructions ?Recorded ?Confirmed ?Last Taken ?Type apixaban 5 mg tablet (Eliquis) 5 mg PO BID 09/25/23 12/17/23 12/17/23 07:00 History atorvastatin 10 mg tablet 10 mg PO BEDTIME 09/25/23 12/17/23 12/16/23 History empagliflozin 25 mg-metformin ER 1 tab PO DAILY 09/25/23 12/17/23 12/17/23 07:00 History 1,000 mg tablet,extended release 24hr (Synjardy XR) furosemide 40 mg tablet 40 mg PO BID@0900,1200 09/25/23 12/17/23 12/17/23 07:00 History cefuroxime axetil 250 mg tablet 250 mg PO BID 12/14/23 12/17/23 12/17/23 07:00 History insulin glargine 100 unit/mL 12 unit subcut BEDTIME 12/17/23 12/17/23 12/16/23 History subcutaneous solution (Lantus U-100 Insulin) Exam Height,Weight and Vital Signs: Height 5 ft 4 in Weight 63.9 kg Last Vital Signs Temp 97.9 F 12/21/23 08:00 Pulse 92 12/21/23 08:00 Resp 12 12/21/23 08:00 BP 111/60 12/21/23 08:00 Pulse Ox 94 12/21/23 08:00 O2 Del Method Room Air 12/21/23 08:00 Pertinent Lab Results Pertinent Lab Results: Laboratory Tests 12/17/23 12/17/23 12/17/23 11:31 12:44 18:10 WBC 6.3 RBC 3.10 L Hgb 8.5 L Hct 27.5 L MCV 88.7 MCH 27.4 MCHC 30.9 L RDW 18.1 H Plt Count 270 D MPV 10.2 Immature Gran % (Auto) 0.5 H Neut % (Auto) 91.1 H Lymph % (Auto) 6.4 L Storey % (Auto) 0.5 L Eos % (Auto) 1.3 Baso % (Auto) 0.2 Lymph # (Auto) 0.4 L Storey # (Auto) 0.0 L Eos # (Auto) 0.1 Baso # (Auto) 0.0 Abs Immat Gran (auto) 0.03 Absolute Neuts (auto) 5.7 Absolute Nucleated RBC 0.000 Nucleated RBC % (auto) 0.0 Smear Tech's Comments VERIFIED Hold Purple Top Sodium 134 L Potassium 4.3 D Chloride 100 Carbon Dioxide 25 Anion Gap 13 BUN 25 H Creatinine 1.06 Estim Creat Clear Calc 40.2 Estimated GFR 51 POC Glucose 254 H 73 Random Glucose 318 H Lactic Acid 1.3 Calcium 8.4 Iron TIBC % Saturation Unsat Iron Binding Total Bilirubin 0.6 AST 87 H ALT 64 H Alkaline Phosphatase 134 H C-Reactive Protein 11.93 H B-Natriuretic Peptide 79 Total Protein 6.5 Albumin 3.2 L Ur Random Sodium Ur Random Potassium Ur Random Chloride Blood Type Antibody Screen Crossmatch 12/17/23 12/18/23 12/18/23 20:04 06:11 07:15 WBC 4.0 L RBC 2.76 L Hgb 7.7 L Hct 24.1 L MCV 87.3 MCH 27.9 MCHC 32.0 RDW 17.8 H Plt Count 252 MPV 10.2 Immature Gran % (Auto) Neut % (Auto) Lymph % (Auto) Storey % (Auto) Eos % (Auto) Baso % (Auto) Lymph # (Auto) Storey # (Auto) Eos # (Auto) Baso # (Auto) Abs Immat Gran (auto) Absolute Neuts (auto) Absolute Nucleated RBC 0.000 Nucleated RBC % (auto) 0.0 Smear Tech's Comments Hold Purple Top Sodium 135 Potassium 3.7 Chloride 104 Carbon Dioxide 22 Anion Gap 13 BUN 17 H Creatinine 0.79 Estim Creat Clear Calc 53.9 Estimated GFR > 60 POC Glucose 158 H 155 H Random Glucose 172 H Lactic Acid Calcium 8.0 L Iron 30 TIBC 144 L % Saturation 21 Unsat Iron Binding 114 Total Bilirubin 0.4 AST 53 H ALT 61 H Alkaline Phosphatase 108 C-Reactive Protein B-Natriuretic Peptide Total Protein 5.2 L Albumin 2.5 L Ur Random Sodium Ur Random Potassium Ur Random Chloride Blood Type Antibody Screen Crossmatch 12/18/23 12/18/23 12/18/23 11:18 16:28 20:16 WBC RBC Hgb Hct MCV MCH MCHC RDW Plt Count MPV Immature Gran % (Auto) Neut % (Auto) Lymph % (Auto) Storey % (Auto) Eos % (Auto) Baso % (Auto) Lymph # (Auto) Storey # (Auto) Eos # (Auto) Baso # (Auto) Abs Immat Gran (auto) Absolute Neuts (auto) Absolute Nucleated RBC Nucleated RBC % (auto) Smear Tech's Comments Hold Purple Top Sodium Potassium Chloride Carbon Dioxide Anion Gap BUN Creatinine Estim Creat Clear Calc Estimated GFR POC Glucose 234 H 221 H 199 H Random Glucose Lactic Acid Calcium Iron TIBC % Saturation Unsat Iron Binding Total Bilirubin AST ALT Alkaline Phosphatase C-Reactive Protein B-Natriuretic Peptide Total Protein Albumin Ur Random Sodium Ur Random Potassium Ur Random Chloride Blood Type Antibody Screen Crossmatch 12/19/23 12/19/23 12/19/23 07:18 07:24 13:27 WBC RBC Hgb Hct MCV MCH MCHC RDW Plt Count MPV Immature Gran % (Auto) Neut % (Auto) Lymph % (Auto) Storey % (Auto) Eos % (Auto) Baso % (Auto) Lymph # (Auto) Storey # (Auto) Eos # (Auto) Baso # (Auto) Abs Immat Gran (auto) Absolute Neuts (auto) Absolute Nucleated RBC Nucleated RBC % (auto) Smear Tech's Comments Hold Purple Top Sodium Potassium Chloride Carbon Dioxide Anion Gap BUN Creatinine Estim Creat Clear Calc Estimated GFR POC Glucose 145 H 120 H Random Glucose Lactic Acid Calcium Iron TIBC % Saturation Unsat Iron Binding Total Bilirubin AST ALT Alkaline Phosphatase C-Reactive Protein B-Natriuretic Peptide Total Protein Albumin Ur Random Sodium Ur Random Potassium Ur Random Chloride Blood Type B Positive Antibody Screen NEGATIVE Crossmatch See Detail 12/19/23 12/19/23 12/20/23 16:16 20:15 05:26 WBC 3.4 L RBC 3.09 L Hgb 8.7 L Hct 26.7 L MCV 86.4 MCH 28.2 MCHC 32.6 RDW 17.2 H Plt Count 256 MPV 9.9 Immature Gran % (Auto) Neut % (Auto) Lymph % (Auto) Storey % (Auto) Eos % (Auto) Baso % (Auto) Lymph # (Auto) Storey # (Auto) Eos # (Auto) Baso # (Auto) Abs Immat Gran (auto) Absolute Neuts (auto) Absolute Nucleated RBC 0.000 Nucleated RBC % (auto) 0.0 Smear Tech's Comments Hold Purple Top Sodium 131 L Potassium 3.7 Chloride 100 Carbon Dioxide 25 Anion Gap 10 L BUN 25 H Creatinine 1.03 Estim Creat Clear Calc 41.3 Estimated GFR 52 POC Glucose 227 H 246 H Random Glucose 240 H Lactic Acid Calcium 8.1 L Iron TIBC % Saturation Unsat Iron Binding Total Bilirubin AST ALT Alkaline Phosphatase C-Reactive Protein B-Natriuretic Peptide Total Protein Albumin Ur Random Sodium Ur Random Potassium Ur Random Chloride Blood Type Antibody Screen Crossmatch 12/20/23 12/20/23 12/20/23 07:24 11:12 14:20 WBC RBC Hgb Hct MCV MCH MCHC RDW Plt Count MPV Immature Gran % (Auto) Neut % (Auto) Lymph % (Auto) Storey % (Auto) Eos % (Auto) Baso % (Auto) Lymph # (Auto) Storey # (Auto) Eos # (Auto) Baso # (Auto) Abs Immat Gran (auto) Absolute Neuts (auto) Absolute Nucleated RBC Nucleated RBC % (auto) Smear Tech's Comments Hold Purple Top Sodium Potassium Chloride Carbon Dioxide Anion Gap BUN Creatinine Estim Creat Clear Calc Estimated GFR POC Glucose 231 H 237 H Random Glucose Lactic Acid Calcium Iron TIBC % Saturation Unsat Iron Binding Total Bilirubin AST ALT Alkaline Phosphatase C-Reactive Protein B-Natriuretic Peptide Total Protein Albumin Ur Random Sodium 80.0 Ur Random Potassium 20.0 Ur Random Chloride 83.0 Blood Type Antibody Screen Crossmatch 12/20/23 12/20/23 12/21/23 16:27 20:19 05:38 WBC RBC Hgb Hct MCV MCH MCHC RDW Plt Count MPV Immature Gran % (Auto) Neut % (Auto) Lymph % (Auto) Storey % (Auto) Eos % (Auto) Baso % (Auto) Lymph # (Auto) Storey # (Auto) Eos # (Auto) Baso # (Auto) Abs Immat Gran (auto) Absolute Neuts (auto) Absolute Nucleated RBC Nucleated RBC % (auto) Smear Tech's Comments Hold Purple Top SEE NOTE Sodium Potassium Chloride Carbon Dioxide Anion Gap BUN Creatinine 0.85 Estim Creat Clear Calc 50.1 Estimated GFR > 60 POC Glucose 215 H 249 H Random Glucose Lactic Acid Calcium Iron TIBC % Saturation Unsat Iron Binding Total Bilirubin AST ALT Alkaline Phosphatase C-Reactive Protein B-Natriuretic Peptide Total Protein Albumin Ur Random Sodium Ur Random Potassium Ur Random Chloride Blood Type Antibody Screen Crossmatch 12/21/23 12/21/23 07:54 11:24 WBC RBC Hgb Hct MCV MCH MCHC RDW Plt Count MPV Immature Gran % (Auto) Neut % (Auto) Lymph % (Auto) Storey % (Auto) Eos % (Auto) Baso % (Auto) Lymph # (Auto) Storey # (Auto) Eos # (Auto) Baso # (Auto) Abs Immat Gran (auto) Absolute Neuts (auto) Absolute Nucleated RBC Nucleated RBC % (auto) Smear Tech's Comments Hold Purple Top Sodium Potassium Chloride Carbon Dioxide Anion Gap BUN Creatinine Estim Creat Clear Calc Estimated GFR POC Glucose 192 H 179 H Random Glucose Lactic Acid Calcium Iron TIBC % Saturation Unsat Iron Binding Total Bilirubin AST ALT Alkaline Phosphatase C-Reactive Protein B-Natriuretic Peptide Total Protein Albumin Ur Random Sodium Ur Random Potassium Ur Random Chloride Blood Type Antibody Screen Crossmatch Airway Mallampati Class: III TM Dist: >3cm Neck ROM: Full Loose/Missing/Broken Teeth: Yes and Lower Assessment and Plan Assessment Anesthesia Assessment: Anesthesia Plan Discussed and Chart Reviewed Final Anesthetic Review Family History of Problems with Anesthesia: No History of Problems with Anesthesia: No NPO: Yes ASA Class: III Final Preanesthetic Review: No Changes in Pt Med Stat, Meds/Allgs Chart Reviewed, Consent Obtained/Reviewed and Anes Risks/Benef Reviewed Patient Risk: Intermediate Procedure Risk: Low Anesthetic Plan Anesthetic Plan: GA Disposition: Standard PACU
[2023-12-21 15:10] LABS: Glucose, Whole Blood 181 mg/dL (60-115)
--- NOTE | 2023-12-21 17:06 | W.PM.OPN ---
Operative Note Operative Note Date of Service: 12/21/23 Narrative: Preop diagnosis: Osteomyelitis, ulcer of the right big toe Postop diagnosis: The same Procedure: Ray amputation of the right big toe Surgeon: Larry Waller MD retail administrative assistant: DENISE Bailey student The patient is a 73 year female with note of a right big toe ulcer and osteomyelitis. The bone is exposed. His MRI showed osteomyelitis of the distal phalanx. She had cellulitis of the area as well all the way to the foot. She wanted to proceed with amputation. She has aware of the risks, benefits, and alternatives. She was brought to the operating room and placed supine under general anesthesia via endotracheal tube. The right foot and leg was prepped and draped usual sterile fashion. A surgical time-out was done. The patient was receiving scheduled IV antibiotics I infiltrated my planned line of incision around the big toe with lidocaine 1%. I made an incision using blade 15 around the big toe, all the way to the medial aspect of forefoot. This was carried down through the full-thickness of the skin subcutaneous fat with electrocautery. I proceeded to then divide through tissue including tendons to expose the metatarsal head. I cauterized bleeding areas as we proceeded with dissection. I used the periosteal elevator to expose the distal metatarsal. Once this was achieved, I used the bone saw to divide the metatarsal head as a ray amputation. I completed the amputation by dividing attached ligaments and soft tissue. This was sent as a specimen I observed for hemostasis. I applied a bone wax on the divided bone I smooth and sharp edges using the bone file I had to ligate 1 digital artery for bleeding using a Polysorb 3-0 tie. Other than that, we were able to achieve good hemostasis. I copiously irrigated. I reapposed the deep subcutaneous layer with Polysorb 3-0 interrupted sutures. Skin closure was achieved with nylon 3-0 simple interrupted sutures. Thick fluffy dressings were applied and the foot was wrapped with Kerlix roll and Ildefonso bandage The patient tolerated procedure well. There were no immediate complications. Initial and final counts of sponges and instruments were correct. Estimated blood loss was about 50 cc The patient was extubated without difficulty and transferred to the recovery room with stable vital signs.
[2023-12-21 18:02] LABS: Glucose, Whole Blood 152 mg/dL (60-115)
[2023-12-21] MEDS: Insulin Lispro 100 UNIT/ML 3 ML VIAL SUBCUT ×2 (18:13→21:25)
[2023-12-21 20:40] LABS: Glucose, Whole Blood 171 mg/dL (60-115)
[2023-12-21] MEDS: Apixaban 5 MG TABLET PO (21:24)
[2023-12-21] MEDS: Insulin Glargine,Hum.rec.anlog 100 UNIT/ML 10 ML VIAL 12 UNIT SUBCUT (21:24)
[2023-12-21] MEDS: Atorvastatin Calcium 10 MG TABLET PO (21:24)
[2023-12-22] MEDS: Dextrose 5 % and Lactated Ring 1,000 ML 80 ML IVCONT (01:35)
[2023-12-22 04:00] VITALS: BP 127/69; PULSE 70; RESP 18; TEMP 36.4; O2SAT 98
[2023-12-22 07:16] VITALS: BP 123/66; PULSE 78; RESP 16; TEMP 36.6; O2SAT 98
[2023-12-22 07:20] LABS: Glucose, Whole Blood 289 mg/dL (60-115)
[2023-12-22 07:31] LABS: Vancomycin Random 4.7 mcg/mL (15-20)
[2023-12-22 07:51] LABS: Creatinine Clr Calc Pharmacy 61.7; Estimated Glomerular Filt Rate > 60
[2023-12-22] MEDS: 0.9 % Sodium Chloride Flush 3 ML SYRINGE IVFLUSH ×3 (08:00→19:40)
[2023-12-22] MEDS: vancomycin HCL 1,000 MG in 0.9 % Sodium Chloride 250 ML 270 MG IV ×2 (08:00→19:39)
[2023-12-22] MEDS: Insulin Lispro 100 UNIT/ML 3 ML VIAL SUBCUT ×4 (08:00→21:40)
[2023-12-22 08:07] VITALS: BP 123/66; PULSE 78
[2023-12-22] MEDS: Metoprolol Tartrate 50 MG TABLET PO ×2 (08:07→19:39)
[2023-12-22] MEDS: dilTIAZem HCL CD 120 MG CAP.ER.DEG PO (08:07)
[2023-12-22] MEDS: Apixaban 5 MG TABLET PO ×2 (08:07→19:40)
[2023-12-22] MEDS: Furosemide 40 MG TABLET PO ×2 (08:07→11:49)
[2023-12-22] MEDS: Potassium Chloride ER 20 MEQ TAB.ER.PRT PO (08:07)
--- NOTE | 2023-12-22 09:37 | PM.EVENT ---
Event Note Date of Service: 12/22/23 Event Note: Underwent big toe amputation yesterday Says she has good pain control Dressings dry She looks comfortable Plan to change dressings tomorrow Pain management Time Spent With Patient Time: Total time managing care of this patient today ____ minutes.
--- NOTE | 2023-12-22 10:52 | PC.NURSE ---
Clarified with Dr. Waller activity restrictions : Non weight bearing forefoot right foot.
[2023-12-22 11:10] LABS: Glucose, Whole Blood 411 mg/dL (60-115)
--- NOTE | 2023-12-22 11:48 | HO.PM.IMPN ---
Subjective Subjective Date of Service: 12/22/23 Interval History: seen and examined pain controlled at this time having elevated sugars Physical Exam Vital Signs: Vital Signs: Last Vital Signs Temp 97.8 F 12/22/23 07:16 Pulse 78 12/22/23 08:07 Resp 16 12/22/23 07:16 BP 123/66 12/22/23 08:07 Pulse Ox 98 12/22/23 07:16 O2 Del Method Room Air 12/22/23 07:16 O2 Flow Rate 6 12/21/23 17:00 BMI result Body Mass Index 24.2 Const: Other: General - no acute distress, appears comfortable Cardiovascular - regular rate and rhythm, S1-S2 Lungs - normal respiratory effort, clear to auscultation bilaterally, no wheezing Abdomen - soft, nontender, no rebound or guarding Extremities -R foot dressing in place Neuro - awake and alert, no focal deficits Objective Data Active Medications Acetaminophen (Acetaminophen 325 Mg Tablet) 650 mg PO Q6H PRN PRN Reason: Pain, Mild (Pain Scale 1-3), fever or headache Apixaban (Apixaban 5 Mg Tablet) 5 mg PO BID [facility] Last Admin: 12/22/23 08:07 Dose: 5 mg Documented By: EVERTON Atorvastatin Calcium (Atorvastatin Calcium 10 Mg Tablet) 10 mg PO BEDTIME [facility] Last Admin: 12/21/23 21:24 Dose: 10 mg Documented By: CASTILTimur Calcium Carbonate (Calcium Carbonate 750 Mg Tab.Chew) 750 mg PO Q4H PRN PRN Reason: Heartburn Diltiazem HCl (Diltiazem Hcl Cd 120 Mg Cap.Er.Deg) 120 mg PO DAILY [facility]; Protocol Last Admin: 12/22/23 08:07 Dose: 120 mg Documented By: EVERTON Furosemide (Furosemide 40 Mg Tablet) 40 mg PO BID@0900,1200 [facility]; Protocol Last Admin: 12/22/23 08:07 Dose: 40 mg Documented By: EVERTON Glucose (Glucose Gel 15 Gm Gel..Gram.) 15 gm PO Q15M PRN; Protocol PRN Reason: per Hypoglycemia Standing Ord. Dextrose (D10) 250 mls @ 750 mls/hr IV Q15M PRN; Protocol PRN Reason: per Hypoglycemia Standing Ord. Vancomycin HCl 1,000 mg/ (Sodium Chloride) 270 mls @ 270 mls/hr IV Q12H [facility] Last Infusion: 12/22/23 09:26 Dose: Infused Documented By: EVERTON Insulin Glargine (Insulin Glargine,Hum.Rec.Anlog 100 Unit/Ml 10 Ml Vial) 12 unit SUBCUT BEDTIME [facility] Last Admin: 12/21/23 21:24 Dose: 12 unit Documented By: RIKKI Insulin Human Lispro (Insulin Lispro 100 Unit/Ml 3 Ml Vial) 0 unit SUBCUT QIDACHS [facility]; Protocol Last Admin: 12/22/23 08:00 Dose: 6 unit Documented By: EVERTON Magnesium Hydroxide (Milk Of Magnesia 30 Ml Oral.Susp) 30 ml PO DAILY PRN PRN Reason: Constipation Melatonin (Melatonin 3 Mg Tablet) 6 mg PO BEDTIME PRN PRN Reason: Insomnia Metoprolol Tartrate (Metoprolol Tartrate 50 Mg Tablet) 50 mg PO BID [facility]; Protocol Last Admin: 12/22/23 08:07 Dose: 50 mg Documented By: EVERTON Morphine Sulfate (Morphine Sulfate 2 Mg/Ml Cartridge) 1 mg IVPUSH Q3H PRN; Protocol PRN Reason: Pain, Severe (Pain Scale 7-10) Oxycodone HCl (Oxycodone Hcl Immed Release 5 Mg Tablet) 5 mg PO Q4H PRN PRN Reason: Pain, Moderate(Pain Scale 4-6) Pharmacy Consult (Consult Rx Vancomycin Dosing) 1 each MISCELLANE DAILY PRN PRN Reason: Consult order Potassium Chloride (Potassium Chloride Er 20 Meq Tab.Er.Prt) 20 meq PO DAILY [facility] Last Admin: 12/22/23 08:07 Dose: 20 meq Documented By: EVERTON Sodium Chloride (0.9 % Sodium Chloride Flush 3 Ml Syringe) 3 ml IVFLUSH QSHIFT [facility] Last Admin: 12/22/23 08:00 Dose: 3 ml Documented By: EVERTON Labs 12/20/23 05:26 12/22/23 06:07 Labs: Laboratory Results - last 24 hr 12/21/23 12/21/23 12/21/23 15:06 17:57 20:31 Estim Creat Clear Calc Estimated GFR POC Glucose 181 H 152 H 171 H Random Vancomycin 12/22/23 12/22/23 12/22/23 06:07 07:16 11:06 Estim Creat Clear Calc 61.7 Estimated GFR > 60 POC Glucose 289 H 411 H* Random Vancomycin 4.7 L Assessment and Plan (1) Osteomyelitis of great toe of right foot: Status: Acute Plan 63 yo diabetic who was admitted on 12/16 for non-healing ulcers, found to have osteomyelitis. Has been poorly responsive to IV antibiotics and she is planned for surgery today. 1. Diabetic foot infection, Right 1a. Osteomeylitis s/p R toe amputation continue IV vancomyin -- likely oral upon discharge, will await dressing changes / input from surgery 2. Acute on chronic anemia multifactorial including iron def, acute illness and recent chemo seen by oncology with recs to keep hb > 8 - s/p 1 prbc on 12/18 3. HypoNa chronic and mild monitor 4. PAF continue metoprolol eliquis on hold for surgery 5. DM -- wiht hyperglycemia continue lantus + sliding scale hyperglycemia likely due to d5 infusion -- has been d/c'ed hold off on oral meds while in the hospital 6. Pancreatic adenocarcinoma outpatient f/u Full Code DVT pptx -- eliquis (on hold for surgery -- will start when okay post-op) Quality Stroke Does the patient have a stroke diagnosis?: No VTE Prior VTE?: No VTE Risk Level:: Medical - moderate - high VTE Device Contraindication: Treatment Not Indicated VTE Drug Contraindication: N/A - Med Ordered
--- NOTE | 2023-12-22 13:01 | HO.POSTANES ---
Post Anesthesia Evaluation Post Anesthesia Evaluation Date of Service: 12/21/23 Vital Signs: Vital Signs Temp Pulse Resp BP Pulse Ox O2 Del Method 12/22/23 08:07 78 123/66 12/22/23 08:07 78 123/66 12/22/23 08:07 123/66 12/22/23 07:16 97.8 F 78 16 123/66 98 Room Air 12/22/23 04:00 97.5 F 70 18 127/69 98 Room Air Anesthesia: General Mental Status: Awake Pain Control: Satisfactory Nausea/Vomiting: None Hydration: Adequate Anesthesia-Related Issues: No Anes. Related Issues
[2023-12-22 15:03] VITALS: BP 109/55; PULSE 71; RESP 16; TEMP 36.2; O2SAT 99
[2023-12-22 16:22] LABS: Glucose, Whole Blood 397 mg/dL (60-115)
[2023-12-22 19:39] VITALS: BP 122/58; PULSE 75
[2023-12-22] MEDS: Atorvastatin Calcium 10 MG TABLET PO (19:40)
[2023-12-22 19:50] VITALS: PULSE 76; RESP 19; TEMP 37.2; O2SAT 99
[2023-12-22 21:36] LABS: Glucose, Whole Blood 303 mg/dL (60-115)
[2023-12-22] MEDS: Insulin Glargine,Hum.rec.anlog 100 UNIT/ML 10 ML VIAL 18 UNIT SUBCUT (21:40)
[2023-12-23 04:00] VITALS: BP 137/63; PULSE 80; RESP 18; TEMP 36.4; O2SAT 97
[2023-12-23 07:12] VITALS: BP 134/62; PULSE 82; RESP 18; TEMP 36.3; O2SAT 97
[2023-12-23 07:13] LABS: Vancomycin Random 16.7 mcg/mL (15-20)
[2023-12-23 07:24] LABS: Creatinine Clr Calc Pharmacy 59.2; Estimated Glomerular Filt Rate > 60
--- NOTE | 2023-12-23 07:32 | HE.PHANOTE ---
RE [facility] Patients level came back this morning at 16.7 up from 4.7. SCR up to 0.72 from 0.69 will get level after 2 doses. Keeping dose the same for now. Next level 12/22 @0600
[2023-12-23 07:40] LABS: Glucose, Whole Blood 170 mg/dL (60-115)
[2023-12-23] MEDS: Insulin Lispro 100 UNIT/ML 3 ML VIAL SUBCUT ×4 (08:05→20:54)
[2023-12-23 08:06] VITALS: BP 134/62; PULSE 82
[2023-12-23] MEDS: dilTIAZem HCL CD 120 MG CAP.ER.DEG PO (08:06)
[2023-12-23] MEDS: Potassium Chloride ER 20 MEQ TAB.ER.PRT PO (08:06)
[2023-12-23] MEDS: Furosemide 40 MG TABLET PO ×2 (08:06→12:04)
[2023-12-23] MEDS: Apixaban 5 MG TABLET PO ×2 (08:06→20:43)
[2023-12-23] MEDS: Metoprolol Tartrate 50 MG TABLET PO ×2 (08:06→20:43)
[2023-12-23] MEDS: vancomycin HCL 1,000 MG in 0.9 % Sodium Chloride 250 ML 270 MG IV (08:07)
[2023-12-23] MEDS: 0.9 % Sodium Chloride Flush 3 ML SYRINGE IVFLUSH ×2 (08:07→14:26)
--- NOTE | 2023-12-23 09:37 | HO.PM.IMPN ---
Subjective Subjective Date of Service: 12/23/23 Interval History: seen and examined this AM no complaints later informed by RN patient vomited after breakfast Physical Exam Vital Signs: Vital Signs: Last Vital Signs Temp 97.4 F 12/23/23 07:12 Pulse 82 12/23/23 08:06 Resp 18 12/23/23 07:12 BP 134/62 12/23/23 08:06 Pulse Ox 97 12/23/23 07:12 O2 Del Method Room Air 12/23/23 07:12 O2 Flow Rate 6 12/21/23 17:00 BMI result Body Mass Index 24.2 Const: Other: General - no acute distress, appears comfortable Cardiovascular - regular rate and rhythm, S1-S2 Lungs - normal respiratory effort, clear to auscultation bilaterally, no wheezing Abdomen - soft, nontender, no rebound or guarding Extremities -R foot dressing in place Neuro - awake and alert, no focal deficits Objective Data Active Medications Acetaminophen (Acetaminophen 325 Mg Tablet) 650 mg PO Q6H PRN PRN Reason: Pain, Mild (Pain Scale 1-3), fever or headache Apixaban (Apixaban 5 Mg Tablet) 5 mg PO BID [facility] Last Admin: 12/23/23 08:06 Dose: 5 mg Documented By: EVERTON Atorvastatin Calcium (Atorvastatin Calcium 10 Mg Tablet) 10 mg PO BEDTIME [facility] Last Admin: 12/22/23 19:40 Dose: 10 mg Documented By: CASTILTimur Calcium Carbonate (Calcium Carbonate 750 Mg Tab.Chew) 750 mg PO Q4H PRN PRN Reason: Heartburn Diltiazem HCl (Diltiazem Hcl Cd 120 Mg Cap.Er.Deg) 120 mg PO DAILY [facility]; Protocol Last Admin: 12/23/23 08:06 Dose: 120 mg Documented By: EVERTON Furosemide (Furosemide 40 Mg Tablet) 40 mg PO BID@0900,1200 [facility]; Protocol Last Admin: 12/23/23 08:06 Dose: 40 mg Documented By: EVERTON Glucose (Glucose Gel 15 Gm Gel..Gram.) 15 gm PO Q15M PRN; Protocol PRN Reason: per Hypoglycemia Standing Ord. Dextrose (D10) 250 mls @ 750 mls/hr IV Q15M PRN; Protocol PRN Reason: per Hypoglycemia Standing Ord. Vancomycin HCl 1,000 mg/ (Sodium Chloride) 270 mls @ 270 mls/hr IV Q12H [facility] Last Infusion: 12/23/23 09:19 Dose: Infused Documented By: EVERTON Insulin Glargine (Insulin Glargine,Hum.Rec.Anlog 100 Unit/Ml 10 Ml Vial) 18 unit SUBCUT BEDTIME [facility] Last Admin: 12/22/23 21:40 Dose: 18 unit Documented By: RIKKI Insulin Human Lispro (Insulin Lispro 100 Unit/Ml 3 Ml Vial) 0 unit SUBCUT QIDACHS [facility]; Protocol Last Admin: 12/23/23 08:05 Dose: 2 unit Documented By: EVERTON Magnesium Hydroxide (Milk Of Magnesia 30 Ml Oral.Susp) 30 ml PO DAILY PRN PRN Reason: Constipation Melatonin (Melatonin 3 Mg Tablet) 6 mg PO BEDTIME PRN PRN Reason: Insomnia Metoprolol Tartrate (Metoprolol Tartrate 50 Mg Tablet) 50 mg PO BID [facility]; Protocol Last Admin: 12/23/23 08:06 Dose: 50 mg Documented By: EVERTON Morphine Sulfate (Morphine Sulfate 2 Mg/Ml Cartridge) 1 mg IVPUSH Q3H PRN; Protocol PRN Reason: Pain, Severe (Pain Scale 7-10) Ondansetron HCl (Ondansetron Hcl 4 Mg/2 Ml Vial) 4 mg IVPUSH Q8H PRN PRN Reason: Nausea and Vomiting Oxycodone HCl (Oxycodone Hcl Immed Release 5 Mg Tablet) 5 mg PO Q4H PRN PRN Reason: Pain, Moderate(Pain Scale 4-6) Pharmacy Consult (Consult Rx Vancomycin Dosing) 1 each MISCELLANE DAILY PRN PRN Reason: Consult order Potassium Chloride (Potassium Chloride Er 20 Meq Tab.Er.Prt) 20 meq PO DAILY [facility] Last Admin: 12/23/23 08:06 Dose: 20 meq Documented By: EVERTON Sodium Chloride (0.9 % Sodium Chloride Flush 3 Ml Syringe) 3 ml IVFLUSH QSHIFT [facility] Last Admin: 12/23/23 08:07 Dose: 3 ml Documented By: EVERTON Labs 12/20/23 05:26 12/23/23 05:56 Labs: Laboratory Results - last 24 hr 12/22/23 12/22/23 12/22/23 11:06 16:02 21:33 Estim Creat Clear Calc Estimated GFR POC Glucose 411 H* 397 H* 303 H Random Vancomycin 12/23/23 12/23/23 05:56 07:16 Estim Creat Clear Calc 59.2 Estimated GFR > 60 POC Glucose 170 H Random Vancomycin 16.7 Microbiology Microbiology Results: Microbiology 12/17/23 12:39 Blood Culture - Final Blood - Venous No growth after 5 days. 12/17/23 11:31 Blood Culture - Final Blood - Venous No growth after 5 days. Assessment and Plan (1) Osteomyelitis of great toe of right foot: Status: Acute Plan 63 yo diabetic who was admitted on 12/16 for non-healing ulcers, found to have osteomyelitis. Has been poorly responsive to IV antibiotics and she is planned for surgery today. 1. Diabetic foot infection, Right 1a. Osteomeylitis s/p R toe amputation dressing change today by surg will plan for discharge on doxy for another 7-10 upon discharge 2. Acute on chronic anemia multi-factorial including iron def, acute illness and recent chemo seen by oncology with recs to keep hb > 8 - s/p 1 prbc on 12/18 3. HypoNa chronic and mild monitor 4. PAF continue metoprolol eliquis on hold for surgery 5. DM -- wiht hyperglycemia continue lantus + sliding scale hyperglycemia likely due to d5 infusion -- has been d/c'ed hold off on oral meds while in the hospital 6. Pancreatic adenocarcinoma outpatient f/u Full Code DVT pptx -- eliquis (on hold for surgery -- will start when okay post-op) Quality Stroke Does the patient have a stroke diagnosis?: No VTE Prior VTE?: No VTE Risk Level:: Medical - moderate - high VTE Device Contraindication: Treatment Not Indicated VTE Drug Contraindication: N/A - Med Ordered
--- NOTE | 2023-12-23 10:05 | P.PNGS_ITS ---
Subjective Subjective Date of Service: 12/23/23 Interval history: No new complaints Denies significant pain Physical Exam 2 Vital Signs: Vital Signs: Last Vital Signs Temp 97.4 F 12/23/23 07:12 Pulse 82 12/23/23 08:06 Resp 18 12/23/23 07:12 BP 134/62 12/23/23 08:06 Pulse Ox 97 12/23/23 07:12 O2 Del Method Room Air 12/23/23 07:12 O2 Flow Rate 6 12/21/23 17:00 BMI result Body Mass Index 24.2 Const: General: comfortable and no acute distress Extrem: Other: Dressings changed - incision clean and dry, sutures intact, no evidence of infection Objective Data Active Medications Acetaminophen (Acetaminophen 325 Mg Tablet) 650 mg PO Q6H PRN PRN Reason: Pain, Mild (Pain Scale 1-3), fever or headache Apixaban (Apixaban 5 Mg Tablet) 5 mg PO BID [facility] Last Admin: 12/23/23 08:06 Dose: 5 mg Documented By: EVERTON Atorvastatin Calcium (Atorvastatin Calcium 10 Mg Tablet) 10 mg PO BEDTIME [facility] Last Admin: 12/22/23 19:40 Dose: 10 mg Documented By: CASTILTimur Calcium Carbonate (Calcium Carbonate 750 Mg Tab.Chew) 750 mg PO Q4H PRN PRN Reason: Heartburn Diltiazem HCl (Diltiazem Hcl Cd 120 Mg Cap.Er.Deg) 120 mg PO DAILY [facility]; Protocol Last Admin: 12/23/23 08:06 Dose: 120 mg Documented By: EVERTON Furosemide (Furosemide 40 Mg Tablet) 40 mg PO BID@0900,1200 [facility]; Protocol Last Admin: 12/23/23 08:06 Dose: 40 mg Documented By: EVERTON Glucose (Glucose Gel 15 Gm Gel..Gram.) 15 gm PO Q15M PRN; Protocol PRN Reason: per Hypoglycemia Standing Ord. Dextrose (D10) 250 mls @ 750 mls/hr IV Q15M PRN; Protocol PRN Reason: per Hypoglycemia Standing Ord. Vancomycin HCl 1,000 mg/ (Sodium Chloride) 270 mls @ 270 mls/hr IV Q12H [facility] Last Infusion: 12/23/23 09:19 Dose: Infused Documented By: EVERTON Insulin Glargine (Insulin Glargine,Hum.Rec.Anlog 100 Unit/Ml 10 Ml Vial) 18 unit SUBCUT BEDTIME [facility] Last Admin: 12/22/23 21:40 Dose: 18 unit Documented By: RIKKI Insulin Human Lispro (Insulin Lispro 100 Unit/Ml 3 Ml Vial) 0 unit SUBCUT QIDACHS [facility]; Protocol Last Admin: 12/23/23 08:05 Dose: 2 unit Documented By: EVERTON Magnesium Hydroxide (Milk Of Magnesia 30 Ml Oral.Susp) 30 ml PO DAILY PRN PRN Reason: Constipation Melatonin (Melatonin 3 Mg Tablet) 6 mg PO BEDTIME PRN PRN Reason: Insomnia Metoprolol Tartrate (Metoprolol Tartrate 50 Mg Tablet) 50 mg PO BID [facility]; Protocol Last Admin: 12/23/23 08:06 Dose: 50 mg Documented By: EVERTON Morphine Sulfate (Morphine Sulfate 2 Mg/Ml Cartridge) 1 mg IVPUSH Q3H PRN; Protocol PRN Reason: Pain, Severe (Pain Scale 7-10) Ondansetron HCl (Ondansetron Hcl 4 Mg/2 Ml Vial) 4 mg IVPUSH Q8H PRN PRN Reason: Nausea and Vomiting Oxycodone HCl (Oxycodone Hcl Immed Release 5 Mg Tablet) 5 mg PO Q4H PRN PRN Reason: Pain, Moderate(Pain Scale 4-6) Pharmacy Consult (Consult Rx Vancomycin Dosing) 1 each MISCELLANE DAILY PRN PRN Reason: Consult order Potassium Chloride (Potassium Chloride Er 20 Meq Tab.Er.Prt) 20 meq PO DAILY [facility] Last Admin: 12/23/23 08:06 Dose: 20 meq Documented By: EVERTON Sodium Chloride (0.9 % Sodium Chloride Flush 3 Ml Syringe) 3 ml IVFLUSH QSHIFT [facility] Last Admin: 12/23/23 08:07 Dose: 3 ml Documented By: EVERTON Labs 12/20/23 05:26 12/23/23 05:56 Labs: Laboratory Results - last 24 hr 12/22/23 12/22/23 12/22/23 11:06 16:02 21:33 Estim Creat Clear Calc Estimated GFR POC Glucose 411 H* 397 H* 303 H Random Vancomycin 12/23/23 12/23/23 05:56 07:16 Estim Creat Clear Calc 59.2 Estimated GFR > 60 POC Glucose 170 H Random Vancomycin 16.7 Microbiology Microbiology Results: Microbiology 12/17/23 12:39 Blood Culture - Final Blood - Venous No growth after 5 days. 12/17/23 11:31 Blood Culture - Final Blood - Venous No growth after 5 days. Procedures Date of Service Date of Service: 12/23/23 Progress Note: A&P Assessment and plan (1) Osteomyelitis of great toe of right foot: Status: Acute Assessment and Plan: Status post big toe amputation I changed her dressing Incision looks well Okay to do daily dressing changes with dry gauze and wrap the foot with Juan roll Pain management Time Spent With Patient Time: Total time managing care of this patient today ____ minutes. Quality Stroke Does the patient have a stroke diagnosis?: No VTE Prior VTE?: No VTE Risk Level:: Medical - moderate - high VTE Device Contraindication: Treatment Not Indicated VTE Drug Contraindication: N/A - Med Ordered
[2023-12-23 11:14] LABS: Glucose, Whole Blood 189 mg/dL (60-115)
[2023-12-23 14:58] VITALS: BP 139/66; PULSE 87; RESP 16; TEMP 36.2; O2SAT 100
[2023-12-23 16:13] LABS: Glucose, Whole Blood 256 mg/dL (60-115)
[2023-12-23 18:50] VITALS: BP 137/65; PULSE 98; RESP 18; TEMP 36.8; O2SAT 98
[2023-12-23 20:21] LABS: Glucose, Whole Blood 249 mg/dL (60-115)
[2023-12-23 20:43] VITALS: BP 137/65; PULSE 98
[2023-12-23] MEDS: Atorvastatin Calcium 10 MG TABLET PO (20:43)
[2023-12-23] MEDS: vancomycin HCL 1,000 MG in 0.9 % Sodium Chloride 250 ML 167 MG IV (20:44)
[2023-12-23] MEDS: Insulin Glargine,Hum.rec.anlog 100 UNIT/ML 10 ML VIAL 18 UNIT SUBCUT (20:45)
[2023-12-24 03:28] VITALS: BP 114/60; PULSE 80; RESP 16; TEMP 37.7; O2SAT 96
[2023-12-24 06:42] LABS: Vancomycin Random 22.4 mcg/mL (15-20)
[2023-12-24 06:54] LABS: Creatinine Clr Calc Pharmacy 60.9; Estimated Glomerular Filt Rate > 60
[2023-12-24 07:19] VITALS: BP 117/57; PULSE 84; RESP 16; TEMP 36.5; O2SAT 95
--- NOTE | 2023-12-24 07:19 | HE.PHANOTE ---
RE: VANCO DOSING Random came back as 22.4 (predicted to be 16.8). Renal is the same as yesterday. Dose is decreased to 750 mg q12h, and held back by 4 hours, starting @1200. Next random is scheduled for 12/25/23 @1000.
[2023-12-24 07:36] LABS: Glucose, Whole Blood 89 mg/dL (60-115)
--- NOTE | 2023-12-24 09:00 | MHC.CLN ---
CONSULT CONSULT FOR SKIN ISSUE AND PT REQUESTING ENSURE. DIET=DIABETIC 2000 KCALS. ADDING ENSURE MAX BID (300 KCALS, 60 G PROTEIN). SURGERY FOR TOE AMP 12/20. SKIN NOW WITH STAGE II TO LEFT COCCYX, IDENTIFIED 12/22. INTAKE AT MEALS USUALLY GOOD, 75-100%. SUPPLEMENT TO INCREASE PROTEIN INTAKE TO PROMOTE WOUND HEALING. FOLLOW FOR INTAKE AND SKIN INTEGRITY.
[2023-12-24] MEDS: 0.9 % Sodium Chloride Flush 3 ML SYRINGE IVFLUSH ×5 (09:04→20:02)
[2023-12-24 09:05] VITALS: BMI 24.2
[2023-12-24 09:08] VITALS: BP 117/57; PULSE 84
[2023-12-24] MEDS: dilTIAZem HCL CD 120 MG CAP.ER.DEG PO (09:08)
[2023-12-24 09:10] VITALS: BP 117/57; PULSE 84
[2023-12-24] MEDS: Metoprolol Tartrate 50 MG TABLET PO ×2 (09:10→20:01)
[2023-12-24] MEDS: Furosemide 40 MG TABLET PO (09:10)
[2023-12-24] MEDS: Potassium Chloride ER 20 MEQ TAB.ER.PRT PO (09:10)
[2023-12-24] MEDS: Apixaban 5 MG TABLET PO ×2 (09:11→20:00)
[2023-12-24 11:26] LABS: Glucose, Whole Blood 141 mg/dL (60-115)
--- NOTE | 2023-12-24 11:27 | HO.PM.IMPN ---
Subjective Subjective Date of Service: 12/24/23 Interval History: Doing well postoperatively. states no pain since surgery. Review of Systems Denies chest pain Denies shortness of breath Denies nausea vomiting diarrhea Denies fever chills Physical Exam Vital Signs: Vital Signs: Last Vital Signs Temp 97.7 F 12/24/23 07:19 Pulse 84 12/24/23 09:10 Resp 16 12/24/23 07:19 BP 117/57 L 12/24/23 09:10 Pulse Ox 95 12/24/23 07:19 O2 Del Method Room Air 12/24/23 07:19 O2 Flow Rate 6 12/21/23 17:00 BMI result Body Mass Index 24.2 Const: Other: awake alert oriented x3 no acute distress Resp: Other: clear to auscultation bilaterally no rales rhonchi or wheezes Cardio: Other: no S4; positive S1-S2; no S3 murmurs rubs or gallops GI: Other: soft nontender nondistended normoactive bowel sounds Extrem: Other: no edema bilaterally. Dressing right foot clean dry and intact Objective Data Active Medications Acetaminophen (Acetaminophen 325 Mg Tablet) 650 mg PO Q6H PRN PRN Reason: Pain, Mild (Pain Scale 1-3), fever or headache Apixaban (Apixaban 5 Mg Tablet) 5 mg PO BID [facility] Last Admin: 12/24/23 09:11 Dose: 5 mg Documented By: ROMIE Atorvastatin Calcium (Atorvastatin Calcium 10 Mg Tablet) 10 mg PO BEDTIME [facility] Last Admin: 12/23/23 20:43 Dose: 10 mg Documented By: SILVESTRE Calcium Carbonate (Calcium Carbonate 750 Mg Tab.Chew) 750 mg PO Q4H PRN PRN Reason: Heartburn Diltiazem HCl (Diltiazem Hcl Cd 120 Mg Cap.Er.Deg) 120 mg PO DAILY [facility]; Protocol Last Admin: 12/24/23 09:08 Dose: 120 mg Documented By: ROMIE Furosemide (Furosemide 40 Mg Tablet) 40 mg PO BID@0900,1200 [facility]; Protocol Last Admin: 12/24/23 09:10 Dose: 40 mg Documented By: ROMIE Glucose (Glucose Gel 15 Gm Gel..Gram.) 15 gm PO Q15M PRN; Protocol PRN Reason: per Hypoglycemia Standing Ord. Dextrose (D10) 250 mls @ 750 mls/hr IV Q15M PRN; Protocol PRN Reason: per Hypoglycemia Standing Ord. Vancomycin HCl 750 mg/ Sodium (Chloride) 265 mls @ 265 mls/hr IV Q12H [facility] Insulin Glargine (Insulin Glargine,Hum.Rec.Anlog 100 Unit/Ml 10 Ml Vial) 18 unit SUBCUT BEDTIME [facility] Last Admin: 12/23/23 20:45 Dose: 18 unit Documented By: SILVESTRE Comments: BS 249 Insulin Human Lispro (Insulin Lispro 100 Unit/Ml 3 Ml Vial) 0 unit SUBCUT QIDACHS [facility]; Protocol Last Admin: 12/24/23 07:38 Dose: Not Given Documented By: ROMIE Non-Admin Reason: No Insulin Coverage Magnesium Hydroxide (Milk Of Magnesia 30 Ml Oral.Susp) 30 ml PO DAILY PRN PRN Reason: Constipation Melatonin (Melatonin 3 Mg Tablet) 6 mg PO BEDTIME PRN PRN Reason: Insomnia Metoprolol Tartrate (Metoprolol Tartrate 50 Mg Tablet) 50 mg PO BID [facility]; Protocol Last Admin: 12/24/23 09:10 Dose: 50 mg Documented By: ROMIE Morphine Sulfate (Morphine Sulfate 2 Mg/Ml Cartridge) 1 mg IVPUSH Q3H PRN; Protocol PRN Reason: Pain, Severe (Pain Scale 7-10) Ondansetron HCl (Ondansetron Hcl 4 Mg/2 Ml Vial) 4 mg IVPUSH Q8H PRN PRN Reason: Nausea and Vomiting Oxycodone HCl (Oxycodone Hcl Immed Release 5 Mg Tablet) 5 mg PO Q4H PRN PRN Reason: Pain, Moderate(Pain Scale 4-6) Pharmacy Consult (Consult Rx Vancomycin Dosing) 1 each MISCELLANE DAILY PRN PRN Reason: Consult order Potassium Chloride (Potassium Chloride Er 20 Meq Tab.Er.Prt) 20 meq PO DAILY [facility] Last Admin: 12/24/23 09:10 Dose: 20 meq Documented By: ROMIE Sodium Chloride (0.9 % Sodium Chloride Flush 3 Ml Syringe) 3 ml IVFLUSH QSHIFT [facility] Last Admin: 12/24/23 09:07 Dose: 3 ml Documented By: ROMIE Labs 12/20/23 05:26 12/24/23 05:58 Labs: Laboratory Results - last 24 hr 12/23/23 12/23/23 12/24/23 16:08 20:16 05:58 Hold Purple Top SEE NOTE Estim Creat Clear Calc 60.9 Estimated GFR > 60 POC Glucose 256 H 249 H Random Vancomycin 22.4 H 12/24/23 12/24/23 07:22 11:19 Hold Purple Top Estim Creat Clear Calc Estimated GFR POC Glucose 89 141 H Random Vancomycin Assessment and Plan (1) Osteomyelitis of great toe of right foot: Status: Acute (2) Type 2 diabetes mellitus: Status: Acute (3) PAF (paroxysmal atrial fibrillation): Status: Acute Plan 63 yo diabetic who was admitted on 12/16 for non-healing ulcers, found to have osteomyelitis. Has been poorly responsive to IV antibiotics and she is planned for surgery today. 1. Diabetic foot infection, Right/Osteomeylitis -s/p R toe amputation - pain control adequate - await PT eval for disposition 2.Acute on chronic anemia -multi-factorial including iron def, acute illness and recent chemo -seen by oncology with recs to keep hb > 8 - s/p 1 prbc on 12/18 3. HypoNa -check renals/divalent 4. PAF - acceptable control on current therapies - adjust as indicated - continue Eliquis 5.Diabetes type 2 requiring insulin - acceptable control on current therapies - lispro correctional scale - adjust as indicated 6. Pancreatic adenocarcinoma -outpatient f/u Full Code Eliquis requires ongoing hospitalization for evaluation for safe discharge placement Quality Stroke Does the patient have a stroke diagnosis?: No VTE Prior VTE?: No VTE Risk Level:: Medical - moderate - high VTE Device Contraindication: Treatment Not Indicated VTE Drug Contraindication: N/A - Med Ordered
[2023-12-24 12:05] LABS: Anion Gap 14 (12-20); Blood Urea Nitrogen 11 mg/dL (9-16); Calcium 7.8 mg/dL (8.4-10.2); Carbon Dioxide 22 mmol/L (22-29); Chloride 100 mmol/L (96-108); Glucose Random 85 mg/dL (60-115); Potassium 2.5 mmol/L (3.3-5.1); Sodium 133 mmol/L (135-145)
[2023-12-24] MEDS: vancomycin HCL 750 MG in 0.9 % Sodium Chloride 250 ML 265 MG IV ×2 (12:57→23:43)
[2023-12-24] MEDS: Potassium Chloride Packet 20 MEQ PACKET 40 MEQ PO ×2 (12:58→20:00)
[2023-12-24 13:28] LABS: Magnesium 1.1 mg/dL (1.6-2.6)
[2023-12-24] MEDS: Magnesium Sulfate/H2O 2 GM/50 ML PIGGYBACK IV (14:00)
[2023-12-24 15:30] VITALS: BP 115/59; PULSE 94; RESP 17; TEMP 37.1; O2SAT 97
[2023-12-24 16:06] LABS: Glucose, Whole Blood 238 mg/dL (60-115)
[2023-12-24] MEDS: Insulin Lispro 100 UNIT/ML 3 ML VIAL SUBCUT ×2 (16:32→20:01)
--- NOTE | 2023-12-24 16:44 | HO.WOUND ---
Wound Consult: Initial 73yr old?female admitted to [facility] on 10/17/23 - See progress notes and H&P for detailed history.? Wound consult placed for Right Foot wound.? Patient agreeable to assessment and photo documentation.? 10/2023 Previously documented at Deep Tissue Injury on last admission Sacrum Todays assessment 12/24/23 Sacrum Etiology: Unstageable Pressure Injury ?Present on Admission Wound Bed: adherent yellow slough - suspect will declare as stage 3 but will clean wound bed prior to determination Drainage / Odor: elizabeth driange noted - no odor noted Edges: ? rolled and macerated Ronda wound: pink blanchable tissue ?hyperpigmentation noted - No Induration, Fluctuance or Warmth noted Pain: report pain and tenderness Goals of Treatment: ? Triad and Foam dressing to protect from friction and moisture and allow for autolytic debridement Recommendations: 1. Turn and Reposition every 2 hours and as needed for patient comfort.? Use pillows or wedges to support off loading positions. 2. Off Load all bony prominences with use of pillows and heel boots if needed.? Apply Preventative foams where needed. ? 3. Monitor for incontinence and moisture control, use barrier creams when needed for prevention and treatment. 4. Provide adequate and supplemental nutrition.? 5. Order low air loss mattress. 6. When applicable maintain blood glucose levels per Providers order. 7. Sacrum - Off Load Pressure? - Cleanse with PH balance spray or wipes, pat dry. ?Apply thin layer of Triad to wound bed. Do not remove all of paste between applications as this may cause further skin damage.? Cover with foam dressing to aid in off loading and protection from friction. Change every other day and PRN. Waffle cushion when up to chair and frequent repositions to off load pressure. 8. Right Plantar Foot - defer to srugery team 9. Left toe - Cleanse and paint with Betadine Daily - may cover with dry foam dressing. Recommend continued follow up out patient Wound Clinic at [address] [place] [id number] and to call for an appointment at time of discharge. [phone].? Re-consult wound care Nurse for wound deterioration or wound changes.
[2023-12-24 19:18] VITALS: BP 117/56; PULSE 95; RESP 16; TEMP 37; O2SAT 97
[2023-12-24 19:50] LABS: Glucose, Whole Blood 229 mg/dL (60-115)
[2023-12-24] MEDS: Atorvastatin Calcium 10 MG TABLET PO (20:01)
[2023-12-24] MEDS: Insulin Glargine,Hum.rec.anlog 100 UNIT/ML 10 ML VIAL 18 UNIT SUBCUT (20:01)
[2023-12-25 03:17] VITALS: BP 108/61; PULSE 82; RESP 16; TEMP 36.9; O2SAT 94
[2023-12-25 07:10] LABS: Alanine Aminotransferase 20 U/L (0-31); Albumin Level 2.3 g/dL (3.5-5.0); Alkaline Phosphatase 131 U/L (39-117); Anion Gap 11 (12-20); Aspartate Amino Transferase 15 U/L (5-31); Bilirubin Total 0.5 mg/dL (0.0-1.0); Blood Urea Nitrogen 13 mg/dL (9-16); Calcium 7.5 mg/dL (8.4-10.2); Carbon Dioxide 22 mmol/L (22-29); Chloride 101 mmol/L (96-108); Creatinine Clr Calc Pharmacy 57.5; Estimated Glomerular Filt Rate > 60; Glucose Fasting 104 mg/dL (60-99); Magnesium 1.6 mg/dL (1.6-2.6); Sodium 131 mmol/L (135-145); Total Protein 4.8 g/dL (6.5-8.0)
[2023-12-25 07:18] VITALS: BP 118/57; PULSE 84; RESP 16; TEMP 36.9; O2SAT 94
[2023-12-25 07:36] LABS: Glucose, Whole Blood 101 mg/dL (60-115)
[2023-12-25] MEDS: Apixaban 5 MG TABLET PO ×2 (08:47→20:27)
[2023-12-25] MEDS: Furosemide 40 MG TABLET PO ×2 (08:47→11:58)
[2023-12-25] MEDS: dilTIAZem HCL CD 120 MG CAP.ER.DEG PO (08:47)
[2023-12-25] MEDS: Metoprolol Tartrate 50 MG TABLET PO ×2 (08:47→20:27)
[2023-12-25] MEDS: 0.9 % Sodium Chloride Flush 3 ML SYRINGE IVFLUSH ×2 (08:48→20:27)
[2023-12-25 10:22] VITALS: BP 118/57; PULSE 84; O2SAT 94
[2023-12-25 10:22] LABS: Vancomycin Random 17.4 mcg/mL (15-20)
--- NOTE | 2023-12-25 10:37 | HE.PHANOTE ---
RE: VANCO DOSING Random came back as 17.4 (predicted 15.8). Dose is change to 1500 mg q24h (predicted qxp=824, trough=12.9). Next random is scheduled for 12/26/23 @1000.
[2023-12-25 11:46] LABS: Glucose, Whole Blood 238 mg/dL (60-115)
[2023-12-25] MEDS: vancomycin HCL 1,500 MG in 0.9 % Sodium Chloride 500 ML 333.33 MG IV (11:57)
[2023-12-25] MEDS: Insulin Lispro 100 UNIT/ML 3 ML VIAL SUBCUT ×3 (11:57→20:27)
[2023-12-25 11:58] VITALS: BP 119/61
--- NOTE | 2023-12-25 12:51 | MHC.CM.PN ---
Addendum entered by Umm Benítez RN 12/25/23 13:49: PER [facility] THEY CAN TAKE PT [facility], PT AGREEABLE AND PREBOOKED FOR 10:30AM ON 12/25. Original Note: EMR REVIEWED, CM RECEIVED A MESSAGE FROM [facility] REPORTING THEY MAY BE ABLE TO TAKE PT AND WILL CHECK INTO HER CHEMO MEDS GEMCITIBINE AND ABRAXANE, CM CONTACTED PT'S SON JA [phone] PER PT REQUEST TO DETERMINE IF PT WILL TRANSPORT PT TO AND FROM CHEMO FROM [facility] INSTEAD OF HOME, JA REPORTS HE WILL AND KNOWS WHERE [facility] IS PT HAS BEEN THERE BEFORE.
--- NOTE | 2023-12-25 14:36 | HO.PM.IMPN ---
Subjective Subjective Date of Service: 12/25/23 Interval History: No acute issues overnight. Pain remains well control. Review of Systems Denies chest pain Denies shortness of breath Denies nausea vomiting diarrhea Denies fever chills Physical Exam Vital Signs: Vital Signs: Last Vital Signs Temp 98.4 F 12/25/23 07:18 Pulse 84 12/25/23 10:22 Resp 16 12/25/23 07:18 BP 119/61 12/25/23 11:58 Pulse Ox 94 12/25/23 10:22 O2 Del Method Room Air 12/25/23 07:18 O2 Flow Rate 6 12/21/23 17:00 BMI result Body Mass Index 24.2 Const: Other: awake alert oriented x3 no acute distress Resp: Other: clear to auscultation bilaterally no rales rhonchi or wheezes Cardio: Other: no S4; positive S1-S2; no S3 murmurs rubs or gallops GI: Other: soft nontender nondistended normoactive bowel sounds Extrem: Other: no edema bilaterally. Dressing right foot clean dry and intact Objective Data Active Medications Acetaminophen (Acetaminophen 325 Mg Tablet) 650 mg PO Q6H PRN PRN Reason: Pain, Mild (Pain Scale 1-3), fever or headache Apixaban (Apixaban 5 Mg Tablet) 5 mg PO BID [facility] Last Admin: 12/25/23 08:47 Dose: 5 mg Documented By: AGNIESZKA Atorvastatin Calcium (Atorvastatin Calcium 10 Mg Tablet) 10 mg PO BEDTIME [facility] Last Admin: 12/24/23 20:01 Dose: 10 mg Documented By: AMIE Calcium Carbonate (Calcium Carbonate 750 Mg Tab.Chew) 750 mg PO Q4H PRN PRN Reason: Heartburn Diltiazem HCl (Diltiazem Hcl Cd 120 Mg Cap.Er.Deg) 120 mg PO DAILY [facility]; Protocol Last Admin: 12/25/23 08:47 Dose: 120 mg Documented By: AGNIESZKA Furosemide (Furosemide 40 Mg Tablet) 40 mg PO BID@0900,1200 [facility]; Protocol Last Admin: 12/25/23 11:58 Dose: 40 mg Documented By: AGNIESZKA Glucose (Glucose Gel 15 Gm Gel..Gram.) 15 gm PO Q15M PRN; Protocol PRN Reason: per Hypoglycemia Standing Ord. Dextrose (D10) 250 mls @ 750 mls/hr IV Q15M PRN; Protocol PRN Reason: per Hypoglycemia Standing Ord. Vancomycin HCl 1,500 mg/ (Sodium Chloride) 500 mls @ 333.333 mls/hr IV Q24H [facility] Last Infusion: 12/25/23 14:33 Dose: Infused Documented By: AGNIESZKA Insulin Glargine (Insulin Glargine,Hum.Rec.Anlog 100 Unit/Ml 10 Ml Vial) 18 unit SUBCUT BEDTIME [facility] Last Admin: 12/24/23 20:01 Dose: 18 unit Documented By: AMIE Insulin Human Lispro (Insulin Lispro 100 Unit/Ml 3 Ml Vial) 0 unit SUBCUT QIDACHS [facility]; Protocol Last Admin: 12/25/23 11:57 Dose: 4 unit Documented By: AGNIESZKA Magnesium Hydroxide (Milk Of Magnesia 30 Ml Oral.Susp) 30 ml PO DAILY PRN PRN Reason: Constipation Melatonin (Melatonin 3 Mg Tablet) 6 mg PO BEDTIME PRN PRN Reason: Insomnia Metoprolol Tartrate (Metoprolol Tartrate 50 Mg Tablet) 50 mg PO BID [facility]; Protocol Last Admin: 12/25/23 08:47 Dose: 50 mg Documented By: AGNIESZKA Morphine Sulfate (Morphine Sulfate 2 Mg/Ml Cartridge) 1 mg IVPUSH Q3H PRN; Protocol PRN Reason: Pain, Severe (Pain Scale 7-10) Ondansetron HCl (Ondansetron Hcl 4 Mg/2 Ml Vial) 4 mg IVPUSH Q8H PRN PRN Reason: Nausea and Vomiting Oxycodone HCl (Oxycodone Hcl Immed Release 5 Mg Tablet) 5 mg PO Q4H PRN PRN Reason: Pain, Moderate(Pain Scale 4-6) Pharmacy Consult (Consult Rx Vancomycin Dosing) 1 each MISCELLANE DAILY PRN PRN Reason: Consult order Sodium Chloride (0.9 % Sodium Chloride Flush 3 Ml Syringe) 3 ml IVFLUSH QSHIFT [facility] Last Admin: 12/25/23 08:48 Dose: 3 ml Documented By: AGNIESZKA Labs 12/20/23 05:26 12/25/23 05:03 Labs: Laboratory Results - last 24 hr 12/24/23 12/24/23 12/25/23 16:03 19:47 05:03 Hold Purple Top SEE NOTE Anion Gap 11 L Estim Creat Clear Calc 57.5 Estimated GFR > 60 POC Glucose 238 H 229 H Fasting Glucose 104 H Calcium 7.5 L Magnesium 1.6 Total Bilirubin 0.5 AST 15 ALT 20 Alkaline Phosphatase 131 H Total Protein 4.8 L Albumin 2.3 L Random Vancomycin 12/25/23 12/25/23 12/25/23 07:26 09:49 11:30 Hold Purple Top Anion Gap Estim Creat Clear Calc Estimated GFR POC Glucose 101 238 H Fasting Glucose Calcium Magnesium Total Bilirubin AST ALT Alkaline Phosphatase Total Protein Albumin Random Vancomycin 17.4 Assessment and Plan (1) Osteomyelitis of great toe of right foot: Status: Acute Plan 63 yo diabetic who was admitted on 12/16 for non-healing ulcers, found to have osteomyelitis. Has been poorly responsive to IV antibiotics and she is planned for surgery today. 1. Diabetic foot infection, Right/Osteomeylitis -s/p R toe amputation - pain control adequate - to rehab in a.m. 2.Acute on chronic anemia -multi-factorial including iron def, acute illness and recent chemo -seen by oncology with recs to keep hb > 8 - s/p 1 prbc on 12/18 -outpatient follow-up 3. HypoNa -check renals/divalent 4. PAF - acceptable control on current therapies - adjust as indicated - continue Eliquis 5.Diabetes type 2 requiring insulin - acceptable control on current therapies - lispro correctional scale - adjust as indicated 6. Pancreatic adenocarcinoma -outpatient f/u Full Code Eliquis requires ongoing hospitalization for evaluation for safe discharge placement Quality Stroke Does the patient have a stroke diagnosis?: No VTE Prior VTE?: No VTE Risk Level:: Medical - moderate - high VTE Device Contraindication: Treatment Not Indicated VTE Drug Contraindication: N/A - Med Ordered
[2023-12-25 15:13] VITALS: BP 121/63; PULSE 86; RESP 18; TEMP 36.7; O2SAT 98
[2023-12-25 16:24] LABS: Glucose, Whole Blood 262 mg/dL (60-115)
[2023-12-25 19:47] VITALS: BP 125/59; PULSE 99; RESP 16; TEMP 37.1; O2SAT 95
[2023-12-25 20:18] LABS: Glucose, Whole Blood 317 mg/dL (60-115)
[2023-12-25] MEDS: Atorvastatin Calcium 10 MG TABLET PO (20:27)
[2023-12-25] MEDS: Insulin Glargine,Hum.rec.anlog 100 UNIT/ML 10 ML VIAL 18 UNIT SUBCUT (20:27)
[2023-12-26 03:32] VITALS: BP 119/58; PULSE 94; RESP 18; TEMP 36.3; O2SAT 92
[2023-12-26 06:34] LABS: Creatinine Clr Calc Pharmacy 56.8; Estimated Glomerular Filt Rate > 60
[2023-12-26 06:57] VITALS: BP 118/59; PULSE 85; RESP 17; TEMP 36.6; O2SAT 94
[2023-12-26 06:58] VITALS: BP 118/59; PULSE 84; TEMP 36.6; O2SAT 94
[2023-12-26 07:05] LABS: Glucose, Whole Blood 145 mg/dL (60-115)
[2023-12-26] MEDS: 0.9 % Sodium Chloride Flush 3 ML SYRINGE IVFLUSH ×3 (07:21→20:17)
[2023-12-26] MEDS: Metoprolol Tartrate 50 MG TABLET PO ×2 (07:23→20:14)
[2023-12-26] MEDS: Apixaban 5 MG TABLET PO ×2 (07:23→20:14)
--- NOTE | 2023-12-26 07:28 | PC.NURSE ---
K level 3.0 yesterday ,Dr. Esparza notified,Lasix held per Dr. Esparza
[2023-12-26] MEDS: dilTIAZem HCL CD 120 MG CAP.ER.DEG PO (07:29)
--- NOTE | 2023-12-26 09:29 | MHC.CM.PN ---
IMM 12/24 IN CHART PATIENT IS AWARE OF DC TIME TO [facility] TODAY. PATIENT STATES THAT HER SON IS ALSO AWARE
--- NOTE | 2023-12-26 10:13 | P.DS_ITS ---
DS: Providers Provider Date of Service: 12/26/23 Date of admission: 12/17/23 13:31 Date of discharge: 12/26/23 Primary care physician: Danyell Glass MD Consults: 12/17/23 13:42 Consult to General Surgery Routine Consulting Provider: [facility] [place] General Surgeons Reason for consultation: right foot wound 12/17/23 20:15 Consult to Wound Care Routine Reason for consultation: rt great toe dm ulcer/ left 2nd toe ulcer 12/18/23 07:32 Consult to Hematology / Oncology Routine Consulting Provider: [facility] [place] Oncology/Hematology Reason for consultation: anemia 12/23/23 19:12 Consult to Wound Care Routine Reason for consultation: stage II left coccyx DS: Diagnosis Discharge Diagnosis (1) Osteomyelitis of great toe of right foot: Status: Acute DS: Summary Hospital Course Hospital Course: 73-year-old woman with multiple medical problems presented to the ER with complaints of nonhealing right great toe wound. She failed outpatient antibiotics. She does go to the wound clinic and was sent here due to worsening infection. Patient has no history of osteomyelitis. She denied fever, chills, nausea vomiting, diarrhea. In the ER, labs within acceptable limits, vital signs stable. Patient received a dose of IV Zosyn, insulin and 500 mL of IV fluids. He will be admitted further management and treatment of worsening right foot wound Hospital Course Patient admitted to general medical floor continued on IV Zosyn. Consult was placed to surgery. After discussion with patient surgery decided to proceed with amputation of the right great toe which was done on 12/21/2023. Her postoperative course was uneventful. She did not require any pain management. She was seen by Physical therapy and deemed appropriate for short-term rehab. At this time she is medically acceptable to discharge to short-term rehab. Time Attestation Discharge Coordination Time (in mins): 35 Quality: Safe Use of Opioids Does Pt have an Active Cancer Diagnosis on the Problem List?: No Quality: Stroke Does the patient have a stroke diagnosis?: No Physical Exam Vital Signs: Vital Signs: Last Vital Signs Temp 97.9 F 12/26/23 06:58 Pulse 84 12/26/23 06:58 Resp 17 12/26/23 06:57 BP 118/59 L 12/26/23 06:58 Pulse Ox 94 12/26/23 06:58 O2 Del Method Room Air 12/26/23 06:58 O2 Flow Rate 6 12/21/23 17:00 BMI result Body Mass Index 24.2 Const: Other: awake alert oriented x3 no acute distress Resp: Other: clear to auscultation bilaterally no rales rhonchi or wheezes Cardio: Other: no S4; positive S1-S2; no S3 murmurs rubs or gallops GI: Other: soft nontender nondistended normoactive bowel sounds Extrem: Other: no edema bilaterally. Dressing right foot clean dry and intact DS: Data Data Completed and Pending Completed studies during hospitalization [Text1]: Procedures Dilation of Common Bile Duct with Intraluminal Device, Via Natural or Artificial Opening Endoscopic (09/25/23) Excision of Common Bile Duct, Via Natural or Artificial Opening Endoscopic, Di agnostic (09/25/23) Extraction of Common Bile Duct, Via Natural or Artificial Opening Endoscopic, Diagnostic (09/25/23) Fluoroscopy of Bile Ducts using Low Osmolar Contrast (09/25/23) Pending studies at discharge: Pending at discharge 12/21/23 16:25 Surgical [PTH] Routine Labs on day of discharge: Laboratory Results - last 24 hr 12/25/23 12/25/23 12/25/23 09:49 11:30 16:03 Hold Purple Top Creatinine Estim Creat Clear Calc Estimated GFR POC Glucose 238 H 262 H Random Vancomycin 17.4 12/25/23 12/26/23 12/26/23 20:14 05:31 06:56 Hold Purple Top SEE NOTE Creatinine 0.75 Estim Creat Clear Calc 56.8 Estimated GFR > 60 POC Glucose 317 H 145 H Random Vancomycin Discharge Plan Discharge Anticipated Discharge Date/Time: 12/26/23 10:10 Patient Disposition: Xfer SNF Discharge Diagnosis: Osteomyelitis right great toe Referrals: [facility] [Outside] - 1 Day (SHORT TERM REHAB ) Danyell Glass MD [Primary Care Provider] - 1 Week Discharge Medications: Continued furosemide 40 mg tablet 40 mg PO BID@0900,1200 atorvastatin 10 mg tablet 10 mg PO BEDTIME Eliquis 5 mg tablet 5 mg PO BID Hold Instructions: Restart on Thursday 09/28 evening Synjardy XR 25-1,000 mg tablet, IR - ER, biphasic 24hr 1 tab PO DAILY ondansetron 8 mg Tablet,Disintegrating 8 mg PO Q8H PRN (Reason: Nausea And Vomiting) Qty: 30 3RF potassium chloride 20 mEq Tablet Extended Release 20 meq PO DAILY Qty: 30 3RF metoprolol tartrate 50 mg Tablet 50 mg PO BID Qty: 60 0RF Protocol: Hold for SBP/HR < HOLD for SBP < : 90 HOLD for HR < : 60 diltiazem HCl [Cardizem CD] 120 mg Capsule,Extended Release 24hr 120 mg PO DAILY Qty: 30 0RF Protocol: Hold for SBP/HR < HOLD for SBP < : 90 HOLD for HR < : 60 insulin glargine [Lantus U-100 Insulin] 100 unit/mL solution 12 unit subcut BEDTIME cefuroxime axetil 250 mg Tablet 250 mg PO BID Qty: 14 0RF Rx Instructions: x10 days Discharge Orders: Discharge Order (Routine); Ordered 12/26/23 Ordered By: Douglas Esparza Diet: Advance to usual diet Activity on Discharge: As tolerated Stand Alone Forms: Patient Portal Discharge page Print Language: Romanian Care Plan Goals: Continue all meds as outlined on discharge summary Health Concerns: Complete course of Ceftin twice daily. Plan of Treatment: PT as per receiving facility; dry dressing to right foot op-site Assessment: See discharge summary
[2023-12-26 10:47] LABS: Vancomycin Random 16.8 mcg/mL (15-20)
--- NOTE | 2023-12-26 10:57 | PC.NURSE ---
K2.4 Dr. Esparza aware ,discharge cancelled
[2023-12-26 11:08] LABS: Glucose, Whole Blood 189 mg/dL (60-115)
[2023-12-26 11:11] LABS: Potassium 2.4 mmol/L (3.3-5.1)
[2023-12-26] MEDS: Insulin Lispro 100 UNIT/ML 3 ML VIAL SUBCUT ×3 (11:31→20:16)
[2023-12-26] MEDS: Potassium Chloride Packet 20 MEQ PACKET 40 MEQ PO ×2 (11:32→20:14)
[2023-12-26] MEDS: vancomycin HCL 1,500 MG in 0.9 % Sodium Chloride 500 ML 333.33 MG IV (11:34)
--- NOTE | 2023-12-26 12:14 | P.PNIM_ITS ---
Subjective Subjective Date of Service: 12/26/23 Interval History: Potassium came back this a.m. 2.4. Discharge cancelled for repletion Review of Systems Denies chest pain Denies shortness of breath Denies nausea vomiting diarrhea Denies fever chills Physical Exam 2 Vital Signs: Vital Signs: Last Vital Signs Temp 97.9 F 12/26/23 06:58 Pulse 84 12/26/23 06:58 Resp 17 12/26/23 06:57 BP 118/59 L 12/26/23 06:58 Pulse Ox 94 12/26/23 06:58 O2 Del Method Room Air 12/26/23 06:58 O2 Flow Rate 6 12/21/23 17:00 BMI result Body Mass Index 24.2 Const: Other: awake alert oriented x3 no acute distress Resp: Other: clear to auscultation bilaterally no rales rhonchi or wheezes Cardio: Other: no S4; positive S1-S2; no S3 murmurs rubs or gallops GI: Other: soft nontender nondistended normoactive bowel sounds Extrem: Other: no edema bilaterally. Dressing right foot clean dry and intact Objective Data Active Medications Acetaminophen (Acetaminophen 325 Mg Tablet) 650 mg PO Q6H PRN PRN Reason: Pain, Mild (Pain Scale 1-3), fever or headache Apixaban (Apixaban 5 Mg Tablet) 5 mg PO BID [facility] Last Admin: 12/26/23 07:23 Dose: 5 mg Documented By: CHAGO Atorvastatin Calcium (Atorvastatin Calcium 10 Mg Tablet) 10 mg PO BEDTIME [facility] Last Admin: 12/25/23 20:27 Dose: 10 mg Documented By: AMIE Calcium Carbonate (Calcium Carbonate 750 Mg Tab.Chew) 750 mg PO Q4H PRN PRN Reason: Heartburn Diltiazem HCl (Diltiazem Hcl Cd 120 Mg Cap.Er.Deg) 120 mg PO DAILY [facility]; Protocol Last Admin: 12/26/23 07:29 Dose: 120 mg Documented By: CHAGO Furosemide (Furosemide 40 Mg Tablet) 40 mg PO BID@0900,1200 [facility]; Protocol Last Admin: 12/26/23 11:33 Dose: Not Given Documented By: CHAGO Non-Admin Reason: low potassium level Glucose (Glucose Gel 15 Gm Gel..Gram.) 15 gm PO Q15M PRN; Protocol PRN Reason: per Hypoglycemia Standing Ord. Dextrose (D10) 250 mls @ 750 mls/hr IV Q15M PRN; Protocol PRN Reason: per Hypoglycemia Standing Ord. Vancomycin HCl 1,500 mg/ (Sodium Chloride) 500 mls @ 333.333 mls/hr IV Q24H [facility] Last Admin: 12/26/23 11:34 Dose: 333.33 mls/hr Documented By: CHAGO Insulin Glargine (Insulin Glargine,Hum.Rec.Anlog 100 Unit/Ml 10 Ml Vial) 18 unit SUBCUT BEDTIME [facility] Last Admin: 12/25/23 20:27 Dose: 18 unit Documented By: AMIE Insulin Human Lispro (Insulin Lispro 100 Unit/Ml 3 Ml Vial) 0 unit SUBCUT QIDACHS [facility]; Protocol Last Admin: 12/26/23 11:31 Dose: 2 unit Documented By: CHAGO Magnesium Hydroxide (Milk Of Magnesia 30 Ml Oral.Susp) 30 ml PO DAILY PRN PRN Reason: Constipation Melatonin (Melatonin 3 Mg Tablet) 6 mg PO BEDTIME PRN PRN Reason: Insomnia Metoprolol Tartrate (Metoprolol Tartrate 50 Mg Tablet) 50 mg PO BID [facility]; Protocol Last Admin: 12/26/23 07:23 Dose: 50 mg Documented By: CHAGO Morphine Sulfate (Morphine Sulfate 2 Mg/Ml Cartridge) 1 mg IVPUSH Q3H PRN; Protocol PRN Reason: Pain, Severe (Pain Scale 7-10) Ondansetron HCl (Ondansetron Hcl 4 Mg/2 Ml Vial) 4 mg IVPUSH Q8H PRN PRN Reason: Nausea and Vomiting Oxycodone HCl (Oxycodone Hcl Immed Release 5 Mg Tablet) 5 mg PO Q4H PRN PRN Reason: Pain, Moderate(Pain Scale 4-6) Pharmacy Consult (Consult Rx Vancomycin Dosing) 1 each MISCELLANE DAILY PRN PRN Reason: Consult order Potassium Chloride (Potassium Chloride Packet 20 Meq Packet) 40 meq PO BID [facility] Stop: 12/27/23 09:01 Last Admin: 12/26/23 11:32 Dose: 40 meq Documented By: CHAGO Sodium Chloride (0.9 % Sodium Chloride Flush 3 Ml Syringe) 3 ml IVFLUSH QSHIFT [facility] Last Admin: 12/26/23 07:21 Dose: 3 ml Documented By: CHAGO Labs 12/20/23 05:26 12/26/23 05:31 Labs: Laboratory Results - last 24 hr 12/25/23 12/25/23 12/26/23 16:03 20:14 05:31 Hold Purple Top SEE NOTE Estim Creat Clear Calc 56.8 Estimated GFR > 60 POC Glucose 262 H 317 H Random Vancomycin 12/26/23 12/26/23 12/26/23 06:56 10:12 11:04 Hold Purple Top Estim Creat Clear Calc Estimated GFR POC Glucose 145 H 189 H Random Vancomycin 16.8 Assessment and Plan (1) Hypokalemia: Status: Acute Plan 63 yo diabetic who was admitted on 12/16 for non-healing ulcers, found to have osteomyelitis. Has been poorly responsive to IV antibiotics and she is planned for surgery today. 1. Hypokalemia -aggressive or repletion -check renals divalent in a.m. 2. Diabetic foot infection, Right/Osteomeylitis -s/p R toe amputation - pain control adequate - to rehab in a.m. 3.Acute on chronic anemia -multi-factorial including iron def, acute illness and recent chemo -seen by oncology with recs to keep hb > 8 - s/p 1 prbc on 12/18 -outpatient follow-up 4. PAF - acceptable control on current therapies - adjust as indicated - continue Eliquis 5.Diabetes type 2 requiring insulin - acceptable control on current therapies - lispro correctional scale - adjust as indicated 6. Pancreatic adenocarcinoma -outpatient f/u Full Code Eliquis requires ongoing hospitalization for evaluation for safe discharge placement Quality Stroke Does the patient have a stroke diagnosis?: No VTE Prior VTE?: No VTE Risk Level:: Medical - moderate - high VTE Device Contraindication: Treatment Not Indicated VTE Drug Contraindication: N/A - Med Ordered
--- NOTE | 2023-12-26 14:49 | MHC.CLN ---
F/U DIET=DIABETIC 2000 KCALS. RECEIVING ENSURE MAX BID (300 KCALS, 60 G PROTEIN). SKIN WITH STAGE II TO LEFT COCCYX. SUPPLEMENT TO PROMOTE WOUND HEALING. INTAKE AT MEALS USUALLY GOOD, 75-100%. FOLLOW FOR INTAKE AND SKIN INTEGRITY.
--- NOTE | 2023-12-26 15:31 | P.CDIM_ITS ---
PROVIDER RESPONSE TEXT: To clarify, the appropriate diagnosis supported by the clinical indicators: Pressure (decubitus) ulcer: sacral ulcer unstageable QUERY TEXT: PHYSICIAN'S DOCUMENTATION REQUEST Date of Query: 12/26/2023 12:42 PM EDT Patient Name: Doris Tavarez Admit Date: 12/17/2023 Dear Douglas Esparza DO, A review of the medical record indicates additional documentation may be needed. Please review below and update the documentation accordingly. Clinical Indicators: Per Wound note 12/24/23: Sacrum unstageable pressure injury, present on admission Triad and Foam dressing to protect from friction and moisture and allow for autolytic debridement Based on the above, could you please provide further information regarding the ulcer/wound: Diabetic ulcer Please specify the location and laterality of the ulcer/wound Venous stasis ulcer Please specify the location and laterality of the ulcer/wound Arterial (ischemic) ulcer Please specify the location and laterality of the ulcer/wound Pressure (decubitus) ulcer Please include the stage of the ulcer and specify the location and laterality of the ulcer/wound Traumatic wound Please specify the location and laterality of the ulcer/wound Non-healing surgical wound Please specify the location and laterality of the ulcer/wound Other (explain) Clinically unable to determine (explain) Thank you, Leslie Arteaga RN Use of terms such as suspected, likely, concern for, or probable (associated with a specific diagnosi s that is being evaluated, monitored, or treated as if it exists) are acceptable and can be coded in the inpatient se tting, when documented at the time of discharge. Please use your independent medical judgment in providing your response. THIS QUERY IS PART OF THE PERMANENT MEDICAL RECORD
--- NOTE | 2023-12-26 15:46 | MHC.CM.PN ---
CHANGE OF DC PLAN: PATIENT [facility]AL[facility]IC [facility] AWARE. PATIENT AWARE.
[2023-12-26 16:00] VITALS: BP 139/71; PULSE 88; RESP 18; TEMP 36.9; O2SAT 93
[2023-12-26 16:18] LABS: Glucose, Whole Blood 235 mg/dL (60-115)
--- NOTE | 2023-12-26 16:19 | PC.NURSE ---
RN called oncology department earlier to notify patient is in the hospital and have jennifer tomorrow at 0900,oncology will contact patient directly,phone number provided
[2023-12-26 19:16] VITALS: BP 126/58; PULSE 88; RESP 18; TEMP 37.2; O2SAT 97
[2023-12-26] MEDS: Atorvastatin Calcium 10 MG TABLET PO (20:14)
[2023-12-26] MEDS: Insulin Glargine,Hum.rec.anlog 100 UNIT/ML 10 ML VIAL 18 UNIT SUBCUT (20:16)
[2023-12-26 20:20] LABS: Glucose, Whole Blood 275 mg/dL (60-115)
--- NOTE | 2023-12-26 23:29 | PC.NURSE ---
Assumed care of patient at 19:00. Patient resting in bed, no distress noted. Denies pain. Tolerated stand and pivot to bedside commode with assistance. Bed alarm on and safety measures in place. Please see shift assessment and tasks for full details. Handoff report given to oncoming RN at 23:15.
[2023-12-27 03:31] VITALS: BP 110/55; PULSE 80; RESP 16; TEMP 36; O2SAT 93
[2023-12-27 06:42] LABS: MANUAL DIFF FLAG NO
[2023-12-27 06:54] LABS: Basophils Absolute Auto 0.1 X10*3/uL (0.0-0.2); Basophils Percent Auto 0.5 % (0-2); Eosinophils Absolute Auto 0.1 X10*3/uL (0.0-0.4); Eosinophils Percent Auto 1.4 % (0-4); Hematocrit 24.8 % (37.0-47.0); Hemoglobin 8.1 g/dl (12.0-16.0); Imm Gran Abs Auto 0.15 X10*3/uL (0.00-0.03); Imm Gran Pct Auto 1.6 % (0.0-0.4); Lymphocytes Absolute Auto 0.9 X10*3/uL (1.2-4.9); Lymphocytes Percent Auto 9.1 % (20-40); Mean Corpuscular HGB Conc 32.7 g/dl (31.0-35.0); Mean Corpuscular Hemoglobin 28.1 pg (27.0-33.0); Mean Corpuscular Volume 86.1 fL (80.0-98.0); Mean Platelet Volume 9.5 fL (9.4-12.3); Monocytes Absolute Auto 1.3 X10*3/uL (0.1-1.2); Monocytes Percent Auto 14.2 % (2-11); Neutrophils Absolute Auto 6.9 x10*3/uL (2.0-8.3); Neutrophils Percent Auto 73.2 % (45-73); Platelet Count 400 X10*3/uL (160-400); Red Blood Count 2.88 X10*6/uL (4.20-5.50); Red Cell Distribution Width 18.6 % (11.0-16.0); White Blood Count 9.4 X10*3/uL (4.8-10.8)
[2023-12-27 07:20] VITALS: BP 112/62; PULSE 76; RESP 16; TEMP 36.9; O2SAT 96
[2023-12-27 07:25] LABS: Alanine Aminotransferase 16 U/L (0-31); Alkaline Phosphatase 140 U/L (39-117); Anion Gap 12 (12-20); Aspartate Amino Transferase 12 U/L (5-31); Bilirubin Total 0.4 mg/dL (0.0-1.0); Blood Urea Nitrogen 17 mg/dL (9-16); Calcium 7.7 mg/dL (8.4-10.2); Carbon Dioxide 20 mmol/L (22-29); Chloride 103 mmol/L (96-108); Creatinine Clr Calc Pharmacy 59.2; Estimated Glomerular Filt Rate > 60; Glucose Fasting 114 mg/dL (60-99); Potassium 3.1 mmol/L (3.3-5.1); Sodium 132 mmol/L (135-145); Total Protein 4.4 g/dL (6.5-8.0)
[2023-12-27 07:45] LABS: Glucose, Whole Blood 119 mg/dL (60-115)
[2023-12-27 09:55] VITALS: BP 112/62
[2023-12-27] MEDS: Apixaban 5 MG TABLET PO (09:55)
[2023-12-27] MEDS: Furosemide 40 MG TABLET PO (09:55)
[2023-12-27 09:56] VITALS: BP 112/62; PULSE 76
[2023-12-27] MEDS: Metoprolol Tartrate 50 MG TABLET PO (09:56)
[2023-12-27] MEDS: dilTIAZem HCL CD 120 MG CAP.ER.DEG PO (09:56)
[2023-12-27] MEDS: 0.9 % Sodium Chloride Flush 3 ML SYRINGE IVFLUSH (09:56)
[2023-12-27] MEDS: Potassium Chloride Packet 20 MEQ PACKET 40 MEQ PO (09:56)
[2023-12-27 11:31] LABS: Glucose, Whole Blood 128 mg/dL (60-115)
[2023-12-27 11:45] VITALS: BP 112/62; PULSE 76
--- NOTE | 2023-12-27 12:29 | PM.DS ---
DS: Providers Provider Date of Service: 12/27/23 Date of admission: 12/17/23 13:31 Date of discharge: 12/27/23 Primary care physician: Danyell Glass MD Consults: 12/17/23 13:42 Consult to General Surgery Routine Consulting [place] [facility] [place] Reason for consultation: right foot wound 12/17/23 20:15 Consult to Wound Care Routine Reason for consultation: rt great toe dm ulcer/ left 2nd toe ulcer 12/18/23 07:32 Consult to Hematology / Oncology Routine Consulting Provider[place] [facility] [place] Reason for consultation: anemia 12/23/23 19:12 Consult to Wound Care Routine Reason for consultation: stage II left coccyx Attending physician on discharge: Niranjan Ashraf Discharging clinician: Kiersten Lopez DS: Diagnosis Discharge Diagnosis (1) Osteomyelitis of great toe of right foot: Status: Acute (2) Hypokalemia: Status: Acute (3) Open wound of right foot: Status: Acute DS: Summary Hospital Course Hospital Course: 73-year-old woman with multiple medical problems presented to the ER with complaints of nonhealing right great toe wound. She failed outpatient antibiotics. She does go to the wound clinic and was sent here due to worsening infection. Patient has no history of osteomyelitis. She denied fever, chills, nausea vomiting, diarrhea. In the ER, labs within acceptable limits, vital signs stable. Patient received a dose of IV Zosyn, insulin and 500 mL of IV fluids. He will be admitted further management and treatment of worsening right foot wound Hospital Course Patient admitted to general medical floor continued on IV Zosyn. Consult was placed to surgery. After discussion with patient surgery decided to proceed with amputation of the right great toe which was done on 12/21/2023. Her postoperative course was uneventful. She did not require any pain management. She was seen by Physical therapy and deemed appropriate for short-term rehab. At this time she is medically acceptable to discharge to short-term rehab. She was noted to have low potassium levels which improved with replacement. Recommend to continue oral potassium replacement and follow potassium levels. Chronic anemia remained near baseline. Recommend outpatient follow-up for wound care Time Attestation Discharge Coordination Time (in mins): 35 Quality: Safe Use of Opioids Does Pt have an Active Cancer Diagnosis on the Problem List?: No Quality: Stroke Does the patient have a stroke diagnosis?: No Physical Exam Vital Signs: Vital Signs: Last Vital Signs Temp 98.4 F 12/27/23 07:20 Pulse 76 12/27/23 11:45 Resp 16 12/27/23 07:20 BP 112/62 12/27/23 11:45 Pulse Ox 96 12/27/23 07:20 O2 Del Method Room Air 12/27/23 07:20 O2 Flow Rate 6 12/21/23 17:00 BMI result Body Mass Index 24.2 Const: General: cooperative, comfortable, no acute distress, alert and awake Nutritional Appearance: average body habitus Orientation/consciousness: patient oriented x3 Resp: Effort & Inspection: no respiratory distress and no use of accessory muscles Cardio: Rate: regular rate GI: Palpation (GI): Soft to palpation and nontender Neuro: General: patient oriented x3, moves all extremities and CN's II-XI intact bilaterally Extrem: Other: Status post amputation right great toe. Clean/dry/intact dressing DS: Data Data Completed and Pending Completed studies during hospitalization [Text1]: Pending at discharge 12/21/23 16:25 Surgical [PTH] Routine Procedures Dilation of Common Bile Duct with Intraluminal Device, Via Natural or Artificial Opening Endoscopic (09/25/23) Excision of Common Bile Duct, Via Natural or Artificial Opening Endoscopic, Diagnostic (09/25/23) Extraction of Common Bile Duct, Via Natural or Artificial Opening Endoscopic, Diagnostic (09/25/23) Fluoroscopy of Bile Ducts using Low Osmolar Contrast (09/25/23) Labs on day of discharge: Laboratory Results - last 24 hr 12/26/23 12/26/23 12/27/23 16:14 19:52 05:37 WBC 9.4 RBC 2.88 L Hgb 8.1 L Hct 24.8 L MCV 86.1 MCH 28.1 MCHC 32.7 RDW 18.6 H Plt Count 400 D MPV 9.5 Immature Gran % (Auto) 1.6 H Neut % (Auto) 73.2 H Lymph % (Auto) 9.1 L [place] % (Auto) 14.2 H Eos % (Auto) 1.4 Baso % (Auto) 0.5 Lymph # (Auto) 0.9 L [place] # (Auto) 1.3 H Eos # (Auto) 0.1 Baso # (Auto) 0.1 Abs Immat Gran (auto) 0.15 H Absolute Neuts (auto) 6.9 Absolute Nucleated RBC 0.000 Nucleated RBC % (auto) 0.0 Sodium 132 L Potassium 3.1 L D Chloride 103 Carbon Dioxide 20 L Anion Gap 12 BUN 17 H Creatinine 0.72 Estim Creat Clear Calc 59.2 Estimated GFR > 60 POC Glucose 235 H 275 H Fasting Glucose 114 H Calcium 7.7 L Total Bilirubin 0.4 AST 12 ALT 16 Alkaline Phosphatase 140 H Total Protein 4.4 L Albumin 2.0 L 12/27/23 12/27/23 07:23 11:19 WBC RBC Hgb Hct MCV MCH MCHC RDW Plt Count MPV Immature Gran % (Auto) Neut % (Auto) Lymph % (Auto) [place] % (Auto) Eos % (Auto) Baso % (Auto) Lymph # (Auto) [place] # (Auto) Eos # (Auto) Baso # (Auto) Abs Immat Gran (auto) Absolute Neuts (auto) Absolute Nucleated RBC Nucleated RBC % (auto) Sodium Potassium Chloride Carbon Dioxide Anion Gap BUN Creatinine Estim Creat Clear Calc Estimated GFR POC Glucose 119 H 128 H Fasting Glucose Calcium Total Bilirubin AST ALT Alkaline Phosphatase Total Protein Albumin Discharge Plan Discharge Anticipated Discharge Date/Time: 12/27/23 12:16 Patient Disposition: Xfer SNF Discharge Diagnosis: Osteomyelitis right great toe [facility]: [facility] [Outside] (SHORT TERM REHAB ) Larry Waller MD [Physician] - 1 Week Danyell Glass MD [Primary Care Provider] - 1 Week Discharge Medications: New amoxicillin-pot clavulanate 875-125 mg tablet 1 tab PO Q12H 7 Days Qty: 14 0RF Continued furosemide 40 mg tablet 40 mg PO BID@0900,1200 atorvastatin 10 mg tablet 10 mg PO BEDTIME Eliquis 5 mg tablet 5 mg PO BID Hold Instructions: Restart on Thursday 09/28 evening Synjardy XR 25-1,000 mg tablet, IR - ER, biphasic 24hr 1 tab PO DAILY ondansetron 8 mg Tablet,Disintegrating 8 mg PO Q8H PRN (Reason: Nausea And Vomiting) Qty: 30 3RF potassium chloride 20 mEq Tablet Extended Release 20 meq PO DAILY Qty: 30 3RF metoprolol tartrate 50 mg Tablet 50 mg PO BID Qty: 60 0RF Protocol: Hold for SBP/HR < HOLD for SBP < : 90 HOLD for HR < : 60 diltiazem HCl [Cardizem CD] 120 mg Capsule,Extended Release 24hr 120 mg PO DAILY Qty: 30 0RF Protocol: Hold for SBP/HR < HOLD for SBP < : 90 HOLD for HR < : 60 insulin glargine [Lantus U-100 Insulin] 100 unit/mL solution 12 unit subcut BEDTIME Discontinued cefuroxime axetil 250 mg Tablet 250 mg PO BID Rx Instructions: x10 days Discharge Orders: Discharge Order (Routine); Ordered 12/26/23 Ordered By: Douglas Esparza Diet: Advance to usual diet Activity on Discharge: As tolerated Stand Alone Forms: Patient Portal Discharge page Print Language: [place]guill[place] Care Plan Goals: Continue all meds as outlined on discharge summary Health Concerns: Osteo of right great toe status post amputation Diabetic Ulcer of foot Low potassium levels Plan of Treatment: Complete course of oral antibiotics as prescribed PT as per receiving facility; dry dressing to right foot op-site outpatient follow up with general surgery Continue oral potassium replacement and monitor potassium levels closely Assessment: See discharge summary
--- NOTE | 2023-12-27 12:40 | MHC.CM.PN ---
PT CLEARED TO DC TODAY TO [facility] CM CALLED ONCOLOGY TO CONFIRM PTS NEXT CHEMO TREATMENT, WHICH THEY INDICATED IS December AT 0900 HOURS CM CALLED PTS SON MARIBELL [phone], WHO CONFIRMS HIS BROTHER WILL BE TRANSPORTING HER TO TREATMENTS CM MET WITH PT WHO ALSO CONFIRMS PLANS FOR GETTING TO ONCOLOGY TREATMENTS AND IS AWARE BLS TRANSPORT IS BOOKED FOR 1400 HOURS WITH ANT
--- NOTE | 2024-01-01 12:14 | P.CDIM_ITS ---
PROVIDER RESPONSE TEXT: To clarify, the appropriate diagnosis supported by the clinical indicators: subcutaneous tissue and fat QUERY TEXT: PHYSICIAN'S DOCUMENTATION REQUEST Date of Query: 01/01/2024 06:44 AM EDT Patient Name: Doris Tavarez Admit Date: 12/17/2023 Dear Larry Waller MD, A review of the medical record indicates additional documentation may be needed. Please review below and update the documentation accordingly. Clinical Indicators: Per General Surgery Consultation 12/17/23: bluntly debrided the ulcers on both the toe as well as the metatarsal head. These appeared to be vivienne n otherwise Could you provide further clarification regarding the depth of the debridement? skin subcutaneous tissue and fat muscle tendon bone Other (explain) Clinically unable to determine (explain) Thank you, Leslie Arteaga RN Use of terms such as suspected, likely, concern for, or probable (associated with a specific diagnosi s that is being evaluated, monitored, or treated as if it exists) are acceptable and can be coded in the inpatient se tting, when documented at the time of discharge. Please use your independent medical judgment in providing your response. THIS QUERY IS PART OF THE PERMANENT MEDICAL RECORD
--- NOTE | 2024-01-08 16:11 | MHC.HEMONC ---
Nurse at [facility] informed of patient chemo appts beginning this . Dr Vann to see pt and clear her for treatment.
== END 2023-12-27 14:07 | disposition skilled nursing facility (03) | DRG 617 ==
LOC: HO.ED 12:38 → HO.EDOVER 13:49 → HO.S3 15:01
PROVIDERS: Family Medicine; Hospitalist; Physician Assistant; Surgery; Admitting Provider Nurse Practitioner Acute Care; Emergency Provider Emergency Medicine; PCP Internal Medicine; Visit Provider Physician Assistant Medical
PROC: 0Y6P0Z0 Detachment at Right 1st Toe, Complete, Open Approach (ICD-10-PCS; principal; 2023-12-21 15:40)
DX: E11.69 Type 2 diabetes mellitus with other specified complication (principal); C25.0 Malignant neoplasm of head of pancreas; L97.419 Non-pressure chronic ulcer of right heel and midfoot with unspecified severity; M86.171 Other acute osteomyelitis, right ankle and foot; E87.1 Hypo-osmolality and hyponatremia; E11.621 Type 2 diabetes mellitus with foot ulcer; D63.8 Anemia in other chronic diseases classified elsewhere; E11.65 Type 2 diabetes mellitus with hyperglycemia; D64.81 Anemia due to antineoplastic chemotherapy; D50.9 Iron deficiency anemia, unspecified; E87.6 Hypokalemia; I48.0 Paroxysmal atrial fibrillation; T45.1X5A Adverse effect of antineoplastic and immunosuppressive drugs, initial encounter; L97.519 Non-pressure chronic ulcer of other part of right foot with unspecified severity; L89.150 Pressure ulcer of sacral region, unstageable; Z79.01 Long term (current) use of anticoagulants; Z79.4 Long term (current) use of insulin; Z79.899 Other long term (current) drug therapy
CPT/HCPCS: 36415; 73620; 73720; 80048; 80053; 80202; 82436; 82565; 82947; 83540; 83605; 83735; 83880; 84132; 84133; 84300; 85007; 85025; 85027; 86140; 86704; 86706; 86850; 86900; 86901; 86923; 87040; 87340; 88305; 88311; 93005; 97116; 97162; 99285; A9585; J0665; J1100; J1642; J2250; J2405; J2543; J2704; J2795; J3010; J3370; J3371; J3475; P9016

== ENCOUNTER 2023-12-17 13:31 | Outpatient (BNV) | payer MEDICARE, OTHER, SELFPAY | END 2023-12-19 07:11 | PROVIDERS: Admitting Provider Nurse Practitioner Acute Care; Emergency Provider Emergency Medicine; PCP Internal Medicine; Visit Provider Internal Medicine Cardiovascular Disease | DX: R94.31 Abnormal electrocardiogram [ECG] [EKG] (principal) | CPT/HCPCS: 93010 ==

== ENCOUNTER → 2023-12-17 13:31 | Outpatient (BNV) | payer MEDICARE, OTHER, SELFPAY | PROVIDERS: Admitting Provider Nurse Practitioner Acute Care; Emergency Provider Emergency Medicine; PCP Internal Medicine; Visit Provider Internal Medicine | DX: D64.9 Anemia, unspecified (principal) | CPT/HCPCS: 99222 ==

== ENCOUNTER → 2023-12-17 13:31 | Outpatient (BNV) | payer MEDICARE, OTHER, SELFPAY | PROVIDERS: Admitting Provider Nurse Practitioner Acute Care; Emergency Provider Emergency Medicine; PCP Internal Medicine; Visit Provider Nurse Practitioner Acute Care | DX: M86.9 Osteomyelitis, unspecified (principal); E87.6 Hypokalemia; S91.301A Unspecified open wound, right foot, initial encounter | CPT/HCPCS: 99223; 99231; 99232; 99239 ==

== ENCOUNTER → 2023-12-17 13:31 | Outpatient (BNV) | payer MEDICARE, OTHER, SELFPAY | PROVIDERS: Admitting Provider Nurse Practitioner Acute Care; Emergency Provider Emergency Medicine; PCP Internal Medicine; Visit Provider Surgery | DX: M86.9 Osteomyelitis, unspecified (principal) | CPT/HCPCS: 28810; 97597; 99024; 99222; 99231; 99232; 99499 ==

== ENCOUNTER 2024-01-03 13:10 | Outpatient (AMB) | payer SELFPAY ==
--- NOTE | 2024-01-03 13:06 | MHC.OFFVIS ---
Vital Signs 01/03/24 13:18 Height 5 ft 4.5 in BP 112/60 Blood Pressure Location Rt brachial Position Sitting Pulse 73 Intake Visit Reasons: s/p right toe amp Intake Note: Patient is seen in office for post op assessment post right toe amputation. Pt c/o: No pains in the surgery area and states she is not having any concerns today. 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 She tolerated procedure well. She is currently in [facility]. She says dressing changes are being done by the [facility] staff. [facility] Medical History Port-A-Cath in place Osteomyelitis of great toe of right foot Pancreatic cancer Type 2 diabetes mellitus Pancreatic mass CHF (congestive heart failure) CKD (chronic kidney disease) Afib Surgical History H/O foot surgery H/O dilation and curettage H/O eye surgery [place] teeth removed History of cholecystectomy Family History Father Prostate cancer Sister Breast cancer Social History Household Members: Family Household Members Other:: Son lives upstairs (multi-family home) Housing: Other Housing Other:: two family house Do you presently have visiting nurse or other home services: Yes ([facility]) Alcohol intake: never Patient Tobacco Use Status: Never used Tobacco e-Cigarette/Vaping Use: Never Used Second Hand Smoke Exposure: No service: No Current occupational status: retired Review of Systems Const Denies chills and Denies fever(s) Physical Exam Vital Signs: Last Vital Signs Pulse 73 01/03/24 13:18 BP 112/60 01/03/24 13:18 Const Other: Looks well General: comfortable and no acute distress Resp Effort & Inspection: normal respiratory effort Extrem Other: Right foot with big toe amputation site healing well sutures intact no pus noted Assessment & Plan Assessment & Plan (1) Osteomyelitis of great toe of right foot: Code(s): M86.9 - Osteomyelitis, unspecified Category: Medical Plan: Status post right big toe amputation. The incision is healing well. I removed all the sutures. I reinforced the incision with Steri-Strips I advised her to avoid putting weight on the area of the incision for another couple of weeks I will see her for another wound check in about 1 month. Dry dressing changes should be done daily along with wrapping the foot with Kerlix roll and Ildefonso bandage. Coding Level of Care Code Global (37644) Diagnoses Osteomyelitis of great toe of right foot M86.9
[2024-01-03 13:18] VITALS: BP 112/60; PULSE 73
== END 2024-01-03 14:07 | disposition home or self-care (01) ==
PROVIDERS: PCP Internal Medicine; Visit Provider Surgery
DX: M86.9 Osteomyelitis, unspecified (principal)
CPT/HCPCS: 99024

== ENCOUNTER → 2024-01-03 13:10 | Outpatient (BNVA) | payer SELFPAY | PROVIDERS: PCP Internal Medicine; Visit Provider Surgery | DX: Z47.81 Encounter for orthopedic aftercare following surgical amputation (principal); Z89.411 Acquired absence of right great toe | CPT/HCPCS: 99212 ==

== ENCOUNTER 2024-01-17 11:57 | Day surgery (SDC) | payer MEDICARE, OTHER, SELFPAY ==
--- NOTE | 2024-01-16 09:32 | HO.ANESPROP2 ---
Documented by User: Linda Last NP 01/16/24 14:03 HPI - Anesthesia Eval Consult details Narrative: 74yo F for ERCP s/p toe amp 12/21/23 with GA-ETT 7 during [facility] admit 12/18-12/27/23 for osteo of toe, hypokalemia s/p ERCP 09/2023 with GA-ETT 7 during [facility] admit Eliquis for afib Chronic low H&H Anesthesia Pre-Procedure Meds Is the patient on any of the following meds?: SGLT2 Inhib PMFSH Active Problems Active Problems: All Active Problems Pancreatic cancer (Acute) Hypokalemia (Acute) Hypophosphatemia (Acute) Atrial fibrillation with RVR (Acute) Pancreatic mass (Acute) Transaminitis (Acute) Past Medical History Medical History Anemia PAF (paroxysmal atrial fibrillation) Port-A-Cath in place Osteomyelitis of great toe of right foot Pancreatic cancer Type 2 diabetes mellitus Pancreatic mass CHF (congestive heart failure) CKD (chronic kidney disease) Afib Family History Family History Father Prostate cancer Sister Breast cancer Family history of problems with anesthesia: No Surgical History Surgical History Hx of surgical procedure (~12/21/23) H/O foot surgery H/O dilation and curettage H/O eye surgery [place] teeth removed History of cholecystectomy History of Problems with Anesthesia: No Social History Social History Household Members: Family Household Members Other:: Son lives upstairs (multi-family home) Housing: Other Housing Other:: two family house Do you presently have visiting nurse or other home services: Yes ([facility]) Alcohol intake: never Patient Tobacco Use Status: Never used Tobacco e-Cigarette/Vaping Use: Never Used Second Hand Smoke Exposure: No Are you DNR?: No Advance Directives: No Advance Directives Information Provided: Yes Nutrition Risks: No Nutritional Risk service: No Current occupational status: retired Meds Allergies Allergy/AdvReac Type Severity Reaction Status Date / Time doxycycline Allergy Rash Verified 01/17/24 12:35 Home Medications ?Medication ?Instructions ?Recorded ?Confirmed ?Last Taken ?Type apixaban 5 mg tablet (Eliquis) 5 mg PO BID 09/25/23 01/16/24 01/14/24 History atorvastatin 10 mg tablet 10 mg PO BEDTIME 09/25/23 01/16/24 12/16/23 History empagliflozin 25 mg-metformin ER 1 tab PO DAILY 09/25/23 01/16/24 01/13/24 History 1,000 mg tablet,extended release 24hr (Synjardy XR) furosemide 40 mg tablet 40 mg PO BID@0900,1200 09/25/23 01/16/24 12/17/23 07:00 History insulin glargine 100 unit/mL 14 unit subcut BEDTIME 12/17/23 01/16/24 12/16/23 History subcutaneous solution (Lantus U-100 Insulin) acetaminophen 325 mg capsule 325 mg PO QID PRN Pain 01/03/24 01/16/24 Unknown History diltiazem HCl 120 mg 120 mg PO DAILY 01/03/24 01/16/24 01/17/24 History capsule,extended release 24 hr, controlled (DILT-XR) ferrous sulfate 325 mg (65 mg 325 mg PO DAILY 01/03/24 01/16/24 Unknown History iron) tablet Exam Pertinent Lab Results Pertinent Lab Results: Laboratory Tests 01/14/24 05:00 WBC 6.4 Hgb 8.6 L Hct 27.9 L Plt Count 447 H Sodium 138 Potassium 3.6 Chloride 105 Carbon Dioxide 24 BUN 13 Creatinine 0.86 Narrative Narrative: EKG 12/2023 Vent. Rate : 088 BPM Atrial Rate : 088 BPM P-R Int : 136 ms QRS Dur : 124 ms QT Int : 384 ms P-R-T Axes : 058 007 023 degrees QTc Int : 464 ms Normal sinus rhythm Right bundle branch block Abnormal ECG When compared with ECG of 17-OCT-2023 13:15, Sinus rhythm has replaced Atrial fibrillation Vent. rate has decreased BY 57 BPM T wave inversion less evident in Anterior leads ECHO 2023 Conclusions: - Normal left ventricular size, thickness, systolic function, and wall motion. The visually estimated ejection fraction is between 60-65%. There is no evidence of regional wall motion abnormalities. Diastolic function is indeterminate on the basis of available data. - Mildly increased right ventricular cavity size. There is mildly decreased right ventricular systolic function. - The left atrium is mildly dilated. The right atrium is normal in size. - There is mild dilatation of the sinuses of Valsalva measuring 3.76 cm and mild dilatation of the ascending aorta measuring 3.60 cm. Assessment and Plan Assessment Anesthesia Assessment: Chart Reviewed Final Anesthetic Review Family History of Problems with Anesthesia: No History of Problems with Anesthesia: No Documented by User: Sharon Parker MD 01/17/24 13:10 [facility] Past Medical History Medical History Anemia PAF (paroxysmal atrial fibrillation) Port-A-Cath in place Osteomyelitis of great toe of right foot Pancreatic cancer Type 2 diabetes mellitus Pancreatic mass CHF (congestive heart failure) CKD (chronic kidney disease) Afib Family History Family History Father Prostate cancer Sister Breast cancer Surgical History Surgical History Hx of surgical procedure (~12/21/23) H/O foot surgery H/O dilation and curettage H/O eye surgery [place] teeth removed History of cholecystectomy Social History Social History Household Members: Family Household Members Other:: Son lives upstairs (multi-family home) Housing: Other Housing Other:: two family house Do you presently have visiting nurse or other home services: Yes ([facility]) Alcohol intake: never Patient Tobacco Use Status: Never used Tobacco e-Cigarette/Vaping Use: Never Used Second Hand Smoke Exposure: No Are you DNR?: No Advance Directives: No Advance Directives Information Provided: Yes Nutrition Risks: No Nutritional Risk service: No Current occupational status: retired Meds Allergies Allergy/AdvReac Type Severity Reaction Status Date / Time doxycycline Allergy Rash Verified 01/17/24 12:35 Home Medications ?Medication ?Instructions ?Recorded ?Confirmed ?Last Taken ?Type apixaban 5 mg tablet (Eliquis) 5 mg PO BID 09/25/23 01/16/24 01/14/24 History atorvastatin 10 mg tablet 10 mg PO BEDTIME 09/25/23 01/16/24 12/16/23 History empagliflozin 25 mg-metformin ER 1 tab PO DAILY 09/25/23 01/16/24 01/13/24 History 1,000 mg tablet,extended release 24hr (Synjardy XR) furosemide 40 mg tablet 40 mg PO BID@0900,1200 09/25/23 01/16/24 12/17/23 07:00 History insulin glargine 100 unit/mL 14 unit subcut BEDTIME 12/17/23 01/16/24 12/16/23 History subcutaneous solution (Lantus U-100 Insulin) acetaminophen 325 mg capsule 325 mg PO QID PRN Pain 01/03/24 01/16/24 Unknown History diltiazem HCl 120 mg 120 mg PO DAILY 01/03/24 01/16/24 01/17/24 History capsule,extended release 24 hr, controlled (DILT-XR) ferrous sulfate 325 mg (65 mg 325 mg PO DAILY 01/03/24 01/16/24 Unknown History iron) tablet Exam Airway Mallampati Class: III (small mouth) TM Dist: >3cm Neck ROM: Limited Loose/Missing/Broken Teeth: No Heart: RRR Lungs: CTA Assessment and Plan Assessment Anesthesia Assessment: Anesthesia Plan Discussed Final Anesthetic Review NPO: Yes ASA Class: III Final Preanesthetic Review: Meds/Allgs Chart Reviewed, Consent Obtained/Reviewed and Anes Risks/Benef Reviewed Patient Risk: Intermediate Procedure Risk: Low Anesthetic Plan Anesthetic Plan: GA Disposition: Standard PACU
[2024-01-17] VITALS (7 sets, daily range): BP systolic 126–145; BP diastolic 63–81; PULSE 70–87; RESP 14–18; TEMP 36.1–36.2; O2SAT 100; BMI 21.8
--- NOTE | ~2024-01-17 | FL_ITS ---
EXAMINATION: XR FLUOROSCOPY WITH IMAGES CLINICAL INFORMATION: ERCP with stent placement. COMPARISON: CT abdomen and pelvis 09/25/2023. Fluoroscopy guidance Intra-Op 09/27/2023. TECHNIQUE: Fluoroscopy provided to: Dr. Cruz Fluoroscopy time: 1.8 seconds DAP: 0.1029 Gycm2 Images: 1 FINDINGS: AP oblique fluoroscopic image of the right abdomen shows plastic stent in place within the common bile duct. Cholecystectomy clips are present. FL/FL guidance in OR IMPRESSION: Fluoroscopic guidance. Please refer to the full operative report for details. Electronically signed by: Chato Schulz MD 03/14/2024 04:08 PM EDT
--- NOTE | 2024-01-17 12:48 | P.HPSUR_ITS ---
Pre-Procedural Eval Section A - 24 Hr Update-Section A only Date of Service: 01/17/24 Section B - Complete if H&P > 30 days Chief Complaint: Obstruction of bile duct Relevant Family History (Specify if Yes): No Relevant Social History: None Present Medications: see Short Stay Collaborative assessment Medical History: Significant History (Anemia PAF (paroxysmal atrial fibrillation) Port-A-Cath in place Osteomyelitis of great toe of right foot Pancreatic cancer Type 2 diabetes mellitus Pancreatic mass CHF (congestive heart failure) CKD (chronic kidney disease) Afib) History of Previous Operations: Relevant previous surgery/procedure and date(s) (Hx of surgical procedure (~12/21/23) H/O foot surgery H/O dilation and curettage H/O eye surgery [place] teeth removed History of cholecystectomy) Allergies: Allergies Allergy/AdvReac Type Severity Reaction Status Date / Time doxycycline Allergy Rash Verified 01/17/24 12:35 Review of Systems Sugical H&P ROS: Negative: Constitution, Cardiovascular, Respiratory, Neurological, Psychiatric, Hem-Onc, Allergic/Immunologic, Gastrointestinal, Genitourinary, Musculoskeletal, Integumentary, Endocrine and Eyes/Ears/Nose/Throat Exam Surgical H&P Exam: Normal: HEENT, Normal: Heart, Normal: Lungs, Normal: Extremities, Normal: Abdomen, Normal: Skin and Normal: Neurological Plan Diagnosis/Plan: Unchanged I have reviewed the history and physical and performed a pertinent physical examination on my patient. No changes have occurred unless specified. Time Spent With Patient Time: Total time managing care of this patient today ____ minutes.
[2024-01-17 12:56] LABS: Glucose, Whole Blood 98 mg/dL (60-115)
[2024-01-17] MEDS: Lactated Ringers 1,000 ML 50 ML IVCONT (12:57)
--- NOTE | 2024-01-17 13:33 | PC.NURSE ---
Cefazolin 1 gm pulled and mixed for dr. barrientos
--- NOTE | 2024-01-17 14:27 | W.PM.OPN ---
Operative Note Operative Note Date of Service: 01/17/24 Narrative: Description:?Endoscopic retrograde cholangiopancreatography (ERCP) and EGD PROCEDURE:?Failed ERCP and EGD with balloon dilation INDICATION FOR THE PROCEDURE:?Patient with a history of stent placement for obstructive jaundice -here for stent replacement MEDICATIONS:?General anesthesia. DESCRIPTION OF PROCEDURE:? The risks of the procedure were made aware to the patient and consisted of medication reaction, bleeding, perforation, aspiration, and post ERCP pancreatitis. After informed consent and appropriate sedation, the duodenoscope was inserted into the oropharynx, down the esophagus, and into the stomach. The ERCP scope was passed easily, and as I reached the distal bulb the scope would not pass into the second part of duodenum. External pressure was applied but still scope would not pass. An upper scope was then used and traversed the area and I noted it was pretty narrow presumably from extrinsic pressure from pancreatic mass. A 20 mm pyloric balloon was used to dilate using a wire and then the ERCP scope was repassed. I still could not get the scope past the narrowing. At this point the procedure was aborted. FINDINGS: 1. Extrinsic duodenal compression, unable to pass ERCP scope RECOMMENDATIONS: 1. Restart her chemotherapy per oncology and if mass shrinks can reattempt ERCP and stent exchange. 2. If any signs of biliary obstruction or stent blockage would need IR input to drain
--- NOTE | 2024-01-17 14:54 | PC.NURSE ---
12:30 pm. Patient stated that the facility where she resides placed the PICC line to her left upper arm two weeks ago for antibiotic treatment which was completed today per pt. Patient stated that facility left line for [facility] to access for today's procedure and facility will remove upon patients return. Order placed in chart from Dr. Cruz to access line today which was completed by andrez lin rn. Line patent. Dressing c/d/i.
== END 2024-01-17 16:02 | disposition home or self-care (01) ==
PROVIDERS: PCP Internal Medicine; Visit Provider Internal Medicine Gastroenterology
PROC: (CPT 43260; principal; 2024-01-17 14:30)
DX: K83.1 Obstruction of bile duct (principal); K86.89 Other specified diseases of pancreas; K31.5 Obstruction of duodenum; Z96.89 Presence of other specified functional implants; C25.9 Malignant neoplasm of pancreas, unspecified; Z95.828 Presence of other vascular implants and grafts; E11.22 Type 2 diabetes mellitus with diabetic chronic kidney disease; N18.9 Chronic kidney disease, unspecified; Z79.4 Long term (current) use of insulin; D64.9 Anemia, unspecified; I48.0 Paroxysmal atrial fibrillation; I50.9 Heart failure, unspecified; Z79.01 Long term (current) use of anticoagulants; Z79.899 Other long term (current) drug therapy; Z88.1 Allergy status to other antibiotic agents; Z90.49 Acquired absence of other specified parts of digestive tract
CPT/HCPCS: 43270; 82947; C1726; J0690; J1610; J2250; J2704; J3010; Q9967

== ENCOUNTER → 2024-01-17 11:57 | Outpatient (BNV) | payer MEDICARE, OTHER, SELFPAY | PROVIDERS: PCP Internal Medicine; Visit Provider Internal Medicine Gastroenterology | DX: K83.1 Obstruction of bile duct (principal); K31.5 Obstruction of duodenum | CPT/HCPCS: 43277 ==

== ENCOUNTER 2024-04-04 15:21 | Emergency (ER) | payer MEDICARE, OTHER, SELFPAY ==
--- NOTE | ~2024-04-04 | CT_ITS ---
EXAMINATION: CT HEAD WITHOUT CONTRAST CT CERVICAL SPINE WITHOUT CONTRAST CLINICAL INFORMATION: Fall. COMPARISON: CT head and cervical spine 10/16/2023. TECHNIQUE: Contiguous axial imaging was performed from the skull base to vertex without intravenous administration of contrast. Contiguous axial imaging was performed from the upper chest through the skull base without intravenous administration of contrast. Coronal and sagittal reformats were obtained at the acquisition workstation. This CT examination was performed using dose optimization techniques as appropriate, variously including the following: *Automated exposure control *Adjustment of mA and/or kV according to patient size (this includes techniques or standardized protocols for targeted exams where dose is matched to indication/reason for exam; i.e. extremities or head) *Use of iterative reconstruction technique DLP: 949 mGy-cm FINDINGS: Head: There is no evidence of acute intracranial hemorrhage or edematous territorial infarction. Scattered hypoattenuation in the periventricular and deep white matter are consistent with moderate microangiopathy. Macario-white matter differentiation is preserved. Generalized cerebral volume loss with a bifrontal predominance, similar to prior. No evidence for obstructive hydrocephalus. No abnormal mass effect or midline shift. No extra-axial fluid collections. No acute soft tissue or osseous abnormalities. Mucous retention cyst in the right maxillary sinus. Otherwise paranasal sinuses, mastoids and middle ear cavities are clear. Multiple dental periapical lucencies are noted. Cervical Spine: The atlantooccipital and atlantoaxial articulations remain well aligned. No evidence of acute compression deformity or traumatic subluxation. Moderate multilevel cervical spondylosis with intervertebral disc height loss, marginal osteophytes and facet/uncovertebral hypertrophy leading to varying degrees of neural foraminal encroachment. There is no prevertebral soft tissue swelling. Stable subcentimeter thyroid nodules, for which no imaging follow-up is recommended. Remaining cervical soft tissues are normal in appearance. The lung apices demonstrate no abnormalities. Partially seen right sided chest port. CT/CT cervical spine wo IV con IMPRESSION: 1. No acute intracranial pathology. 2. No acute cervical spinal fractures or malalignment. Electronically signed by: Sumaya Mccullough MD 04/04/2024 05:17 PM EDT
--- NOTE | ~2024-04-04 | XR_ITS ---
EXAMINATION: XR CHEST CLINICAL INFORMATION: Preoperative. COMPARISON: Chest radiograph 10/16/2023. TECHNIQUE: Frontal view of the chest was obtained. FINDINGS: Right-sided chest port tip terminates over the expected location of the proximal right atrium. Right-sided PICC line tip terminates over the expected location of the superior cavoatrial junction. No focal consolidation, pleural effusion or pneumothorax. Normal heart size. No acute osseous findings. XR/XR chest 1V IMPRESSION: No acute cardiopulmonary findings. Electronically signed by: Sumaya Mccullough MD 04/04/2024 05:24 PM EDT
--- NOTE | ~2024-04-04 | XR_ITS ---
EXAMINATION: XR HIP, LEFT CLINICAL INFORMATION: Pain, injury. COMPARISON: CT abdomen/pelvis 09/25/2023. TECHNIQUE: Two views of the left hip. FINDINGS: Mildly displaced fracture of the left superior acetabulum extending to the superior pubic rami. Femoral heads are well-seated in the acetabula. SI joints are symmetric. No evidence of pubic symphysis diastases. Partially seen vascular stent graft. Moderate stool ball in the rectum, rectal vault measures 7 cm. XR/XR hip LT w PEL1V IMPRESSION: 1. Fracture of the left superior acetabulum extending to the superior pubic rami. 2. Moderate stool ball in the rectum. Electronically signed by: Sumaya Mccullough MD 04/04/2024 05:27 PM EDT
[2024-04-04 15:30] VITALS: BP 155/88; PULSE 86; O2SAT 100
--- NOTE | 2024-04-04 15:39 | ED_ITS ---
HPI - General Adult General Chief complaint: Fall Stated complaint: MECHANICAL FALL YESTERDAY HIGH BLOOD SUGAR Time Seen by Provider: 04/04/24 15:37 Source: patient and EMS Mode of arrival: EMS Limitations: no limitations History of Present Illness ED Provider: Lanny Olivarez PA-C HPI narrative: Patient is a 74 year old assigned female at with a history of pancreatic adenocarcinoma, DM, PAF, anemia, and right foot osteomyelitis (currently on IV ABX) presenting to the emergency department today with left hip pain after a fall. Patient states that at her SNF she attempted to close her curtain, reached too far, and fell. Patient states that she is now having left hip pain and is unsure if she hit her head or not. Patient denies any dizziness, lightheadedness, abdominal pain, nausea, vomiting, fever, chills, blurry vision, double vision, loss of vision, chest pain, difficulty breathing, shortness of breath, back pain, night sweats, pain with urination, increased urinary frequency, increased urinary urgency, blood in her urine or stool, syncope or a near syncopal episode, bowel incontinence, bladder incontinence, or any other complaints at this time. Onset (ago): day(s) (1) Relieving factors: none Exacerbating factors: movement Associated symptoms: denies other symptoms Treatments prior to arrival: none Related Data Home Medications ?Medication ?Instructions ?Recorded ?Confirmed apixaban 5 mg tablet (Eliquis) 5 mg PO BID 09/25/23 01/16/24 atorvastatin 10 mg tablet 10 mg PO BEDTIME 09/25/23 01/16/24 empagliflozin 25 mg-metformin ER 1 tab PO DAILY 09/25/23 01/16/24 1,000 mg tablet,extended release 24hr (Synjardy XR) furosemide 40 mg tablet 40 mg PO BID@0900,1200 09/25/23 01/16/24 insulin glargine 100 unit/mL 14 unit subcut BEDTIME 12/17/23 01/16/24 subcutaneous solution (Lantus U-100 Insulin) acetaminophen 325 mg capsule 325 mg PO QID PRN Pain 01/03/24 01/16/24 diltiazem HCl 120 mg 120 mg PO DAILY 01/03/24 01/16/24 capsule,extended release 24 hr, controlled (DILT-XR) ferrous sulfate 325 mg (65 mg 325 mg PO DAILY 01/03/24 01/16/24 iron) tablet Previous Rx's ?Medication ?Instructions ?Recorded metoprolol tartrate 50 mg tablet 50 mg PO BID #60 tabs 10/22/23 ondansetron 8 mg disintegrating 8 mg PO Q8H PRN Nausea And 11/29/23 tablet Vomiting #30 tabs potassium chloride 20 mEq 1 tab PO DAILY #90 ea 01/06/24 tablet,extended release Allergies Allergy/AdvReac Type Severity Reaction Status Date / Time doxycycline Allergy Rash Verified 04/04/24 15:49 Review of Systems 2 Constitutional: Constitutional: Reports no additional constitutional complaints, Denies chills, Denies fever(s) and Denies night sweats Eyes: Eyes: Reports no additional eye complaints, Denies blurry vision, Denies change in vision, Denies diplopia, Denies eye discharge, Denies loss of vision and Denies eye pain ENT: Denies dizziness Cardiovascular: Cardiovascular: Reports no additional cardiovascular complaints, Denies chest pain, Denies lightheadedness, Denies Loss of Consciousness and Denies dyspnea Respiratory: Respiratory: Reports no additional respiratory complaints and Denies dyspnea Gastrointestinal: Gastrointestinal: Reports no additional gastrointestinal complaints, Denies abdominal pain, Denies melena, Denies hematochezia, Denies change in bowel habits and Denies change in stool character Genitourinary: Genitourinary: Denies hematuria, Denies urinary frequency, Denies dysuria, Denies urinary incontinence, Denies urinary hesitancy and Denies urinary urgency Musculoskeletal: Musculoskeletal: Reports no additional musculoskeletal complaints, Denies numbness and Denies tingling Comments: left hip pain Neurologic: Denies dizziness, Denies loss of vision, Denies numbness and Denies tingling Psychiatric: Psychiatric: Reports no additional psychiatric complaints Endocrine: Endocrine: Reports no additional endocrine complaints Hematologic/Lymphatic: Hematologic/Lymphatic: Reports no additional hematologic/lymphatic complaints Allergic/Immunologic: Allergic/Immunologic: Reports no additional allergic/immunologic complaints PMFSH Past Medical History Attestation statement: The following information was validated with the patient. Source: old records reviewed and nursing notes reviewed Medical History Anemia PAF (paroxysmal atrial fibrillation) Port-A-Cath in place Osteomyelitis of great toe of right foot Pancreatic cancer Type 2 diabetes mellitus Pancreatic mass CHF (congestive heart failure) CKD (chronic kidney disease) Afib Surgical History Hx of surgical procedure (~12/21/23) H/O foot surgery H/O dilation and curettage H/O eye surgery [place] teeth removed History of cholecystectomy Family History Family History Father Prostate cancer Sister Breast cancer Social History Social History Household Members: Family Household Members Other:: Son lives upstairs (multi-family home) Housing: Other Housing Other:: two family house Do you presently have visiting nurse or other home services: Yes ([facility]) Alcohol intake: former Patient Tobacco Use Status: Never used Tobacco Smoked in Last 30 Days: No e-Cigarette/Vaping Use: Never Used Second Hand Smoke Exposure: No Use of substances other than those prescribed or required for medical reasons: No Advance Directives: No Advance Directives Information Provided: No service: No Current occupational status: retired Physical Exam ED Vital Signs: Vital Signs - 24 hr 04/04/24 16:49 04/04/24 18:02 Temperature 98.8 F 98.2 F Pulse Rate 87 88 Respiratory Rate 18 12 Blood Pressure 153/73 H 155/70 H Pulse Oximetry 100 100 Oxygen Delivery Method Room Air Room Air BMI result Body Mass Index 26.0 Back/Spine/Pelvis Other: pain with left hip movement and pain with left hip palpation Medical Decision Making Medical Decision Making MDM Narrative: Patient is a 74 year old assigned female at with a history of pancreatic adenocarcinoma, DM, PAF, anemia, and right foot osteomyelitis (currently on IV ABX) presenting to the emergency department today with left hip pain after a fall. Patient's physical exam was as noted in the physical exam portion of this note. Patient's blood work was unremarkable. Patient's left hip/pelvis x-ray showed a left pelvic rami and acetabulum fx. Patient's chest x-ray showed no acute process. Patient's CT head and C-spine were unremarkable. I spoke to the orthopedic team who recommended discharge with non weight bearing status of the LLE. I explained my physical exam findings as well as all test results to the patient. I answered all questions asked by the patient. I stressed the importance of the patient taking her medication as directed (either prescribed or as the over the counter packaging recommends). I stressed the importance of the patient following up with her primary care provider and an orthopedic provider. I stressed the importance of the patient returning to the emergency department immediately if her symptoms were to worsen or if she were to develop any dizziness, shortness of breath, difficulty breathing, chest pain, blurry vision, loss of vision, nausea, vomiting, abdominal pain, fever, chills, back pain, or any other complaints. Patient verbalized agreement and understanding with this treatment plan and discharge. Differential Diagnosis Differential Diagnoses: The differential diagnosis associated with the presentation includes Left hip fracture Left pubic ramus fracture Fall Admission/Observation Consideration of admission/observation: Escalation of care including admission/observation considered Patient would have been admitted to the hospital had her work up had any findings where hospital admission was appropriate and her clinical presentation warranted hospital admission. Consult Healthcare Provider Management of the patient was discussed with: Lacing Operator (spoke to the orthopedic team as noted in the MDM Rationale portion of this note.) Lab Data [facility] Lab Attestation statement: I reviewed the patient's lab results. My interpretation of these results are in the MDM Rationale portion of this note. 04/04/24 16:48 04/04/24 16:48 Labs: Lab Results 04/04/24 04/04/24 Range/Units 16:46 16:48 WBC 6.4 (4.8-10.8) X10*3/uL RBC 3.54 L (4.20-5.50) X10*6/uL Hgb 10.8 L (12.0-16.0) g/dl Hct 33.4 L (37.0-47.0) % MCV 94.4 (80.0-98.0) fL MCH 30.5 (27.0-33.0) pg MCHC 32.3 (31.0-35.0) g/dl RDW 15.7 (11.0-16.0) % Plt Count 243 D (160-400) X10*3/uL MPV 10.0 (9.4-12.3) fL Immature Gran % (Auto) 0.5 H (0.0-0.4) % Neut % (Auto) 76.7 H (45-73) % Lymph % (Auto) 11.6 L (20-40) % Kane % (Auto) 7.4 (2-11) % Eos % (Auto) 2.7 (0-4) % Baso % (Auto) 1.1 (0-2) % Lymph # (Auto) 0.7 L (1.2-4.9) X10*3/uL Kane # (Auto) 0.5 (0.1-1.2) X10*3/uL Eos # (Auto) 0.2 (0.0-0.4) X10*3/uL Baso # (Auto) 0.1 (0.0-0.2) X10*3/uL Abs Immat Gran (auto) 0.03 (0.00-0.03) X10*3/uL Absolute Neuts (auto) 4.9 (2.0-8.3) x10*3/uL Absolute Nucleated RBC 0.000 (0.0-0.012) X10*3/uL Nucleated RBC % (auto) 0.0 (0.0-0.2) /100WBC PT 12.7 H (10.9-12.4) SEC INR 1.1 (0.9-1.1) APTT 33.5 (26.0-36.8) SEC Sodium 136 (135-145) mmol/L Potassium 4.8 D (3.3-5.1) mmol/L Chloride 105 (96-108) mmol/L Carbon Dioxide 24 (22-29) mmol/L Anion Gap 12 (12-20) BUN 12 (9-16) mg/dL Creatinine 1.22 (0.5-1.4) mg/dL Estim Creat Clear Calc 39.3 Estimated GFR 43 POC Glucose 355 H* (60-115) mg/dL Random Glucose 406 H* (60-115) mg/dL Calcium 9.0 D (8.4-10.2) mg/dL Magnesium 1.8 (1.6-2.6) mg/dL Total Bilirubin 0.2 (0.0-1.0) mg/dL AST 18 (5-31) U/L ALT 14 (0-31) U/L Alkaline Phosphatase 130 H (39-117) U/L Total Protein 6.0 L (6.5-8.0) g/dL Albumin 3.1 L (3.5-5.0) g/dL Independent Interpretation I performed an independent interpretation of an: Plain X-Ray and CT Scan Interpretation: My interpretation is in agreement with the radiologist's impression of these imaging studies. L EXAMINATION: CT HEAD WITHOUT CONTRAST CT CERVICAL SPINE WITHOUT CONTRAST CLINICAL INFORMATION: Fall. COMPARISON: CT head and cervical spine 10/16/2023. TECHNIQUE: Contiguous axial imaging was performed from the skull base to vertex without intravenous administration of contrast. Contiguous axial imaging was performed from the upper chest through the skull base without intravenous administration of contrast. Coronal and sagittal reformats were obtained at the acquisition workstation. This CT examination was performed using dose optimization techniques as appropriate, variously including the following: *Automated exposure control *Adjustment of mA and/or kV according to patient size (this includes techniques or standardized protocols for targeted exams where dose is matched to indication/reason for exam; i.e. extremities or head) *Use of iterative reconstruction technique DLP: 949 mGy-cm FINDINGS: Head: There is no evidence of acute intracranial hemorrhage or edematous territorial infarction. Scattered hypoattenuation in the periventricular and deep white matter are consistent with moderate microangiopathy. Macario-white matter differentiation is preserved. Generalized cerebral volume loss with a bifrontal predominance, similar to prior. No evidence for obstructive hydrocephalus. No abnormal mass effect or midline shift. No extra-axial fluid collections. No acute soft tissue or osseous abnormalities. Mucous retention cyst in the right maxillary sinus. Otherwise paranasal sinuses, mastoids and middle ear cavities are clear. Multiple dental periapical lucencies are noted. Cervical Spine: The atlantooccipital and atlantoaxial articulations remain well aligned. No evidence of acute compression deformity or traumatic subluxation. Moderate multilevel cervical spondylosis with intervertebral disc height loss, marginal osteophytes and facet/uncovertebral hypertrophy leading to varying degrees of neural foraminal encroachment. There is no prevertebral soft tissue swelling. Stable subcentimeter thyroid nodules, for which no imaging follow-up is recommended. Remaining cervical soft tissues are normal in appearance. The lung apices demonstrate no abnormalities. Partially seen right sided chest port. CT/CT cervical spine wo IV con IMPRESSION: 1. No acute intracranial pathology. 2. No acute cervical spinal fractures or malalignment. Electronically signed by: Sumaya Mccullough MD 04/04/2024 05:17 PM EDT RP Dictated By: Sumaya Mccullough Signed By: Electronically signed by Sumaya Mccullough 04/04/24 1717 EXAMINATION: XR HIP, LEFT CLINICAL INFORMATION: Pain, injury. COMPARISON: CT abdomen/pelvis 09/25/2023. TECHNIQUE: Two views of the left hip. FINDINGS: Mildly displaced fracture of the left superior acetabulum extending to the superior pubic rami. Femoral heads are well-seated in the acetabula. SI joints are symmetric. No evidence of pubic symphysis diastases. Partially seen vascular stent graft. Moderate stool ball in the rectum, rectal vault measures 7 cm. XR/XR hip LT w PEL1V IMPRESSION: 1. Fracture of the left superior acetabulum extending to the superior pubic rami. 2. Moderate stool ball in the rectum. Electronically signed by: Sumaya Mccullough MD 04/04/2024 05:27 PM EDT Dictated By: Sumaya Mccullough Signed By: Electronically signed by Sumaya Mccullough 04/04/24 1727 EXAMINATION: XR CHEST CLINICAL INFORMATION: Preoperative. COMPARISON: Chest radiograph 10/16/2023. TECHNIQUE: Frontal view of the chest was obtained. FINDINGS: Right-sided chest port tip terminates over the expected location of the proximal right atrium. Right-sided PICC line tip terminates over the expected location of the superior cavoatrial junction. No focal consolidation, pleural effusion or pneumothorax. Normal heart size. No acute osseous findings. XR/XR chest 1V IMPRESSION: No acute cardiopulmonary findings. Electronically signed by: Sumaya Mccullough MD 04/04/2024 05:24 PM EDT Dictated By: Sumaya Mccullough Signed By: Electronically signed by Sumaya Mccullough 04/04/24 1724 Radiology Impression Discussion of test interpretation with radiology: I have reviewed the radiologist's reading. Independent Historian Clinical information obtained from an independent historian. History obtained from or confirmed by: EMS (EMS provided additional history and confirmed the history provided by the patient.) Critical Care Time Critical Care Time Critical Care Time: Yes Total Critical Care Time: 34 Attestation: I spent 34 minutes of Critical Care Time with this patient. This does not include time spent on separately reported billable procedures. Discharge Plan Discharge Clinical Impression: Closed pelvic fracture Patient Disposition: Home, Self-Care Instructions: Pelvic Fracture (ED) Additional Instructions: Do NOT bear weight on the left lower extremity. Follow up with your primary care provider and an orthopedic provider. Return to the emergency department immediately if your symptoms worsen or if you develop any dizziness, shortness of breath, difficulty breathing, chest pain, blurry vision, loss of vision, nausea, vomiting, abdominal pain, fever, chills, back pain, or any other complaints. Prescriptions: No Action furosemide 40 mg tablet 40 mg PO BID@0900,1200 atorvastatin 10 mg tablet 10 mg PO BEDTIME Eliquis 5 mg tablet 5 mg PO BID Synjardy XR 25-1,000 mg tablet, IR - ER, biphasic 24hr 1 tab PO DAILY ondansetron 8 mg Tablet,Disintegrating 8 mg PO Q8H PRN (Reason: Nausea And Vomiting) Qty: 30 3RF potassium chloride 20 mEq Tablet Extended Release 1 tab PO DAILY Qty: 90 4RF metoprolol tartrate 50 mg Tablet 50 mg PO BID Qty: 60 0RF Protocol: Hold for SBP/HR < HOLD for SBP < : 90 HOLD for HR < : 60 insulin glargine [Lantus U-100 Insulin] 100 unit/mL solution 14 unit subcut BEDTIME acetaminophen 325 mg capsule 325 mg PO QID PRN (Reason: Pain) ferrous sulfate 325 mg (65 mg iron) tablet 325 mg PO DAILY diltiazem HCl [DILT-XR] 120 mg capsule,ext.rel 24h degradable 120 mg PO DAILY Referrals: [facility] [Provider Group] (Call to establish and follow up with an orthopedic provider.) Danyell Glass MD [Primary Care Provider] - Print Language: [place]
[2024-04-04 15:49] VITALS: BMI 26.0
[2024-04-04 16:49] VITALS: BP 153/73; PULSE 87; RESP 18; TEMP 37.1; O2SAT 100
[2024-04-04 16:49] LABS: Glucose, Whole Blood 355 mg/dL (60-115)
[2024-04-04 16:53] LABS: MANUAL DIFF FLAG NO
[2024-04-04 16:55] LABS: Basophils Absolute Auto 0.1 X10*3/uL (0.0-0.2); Basophils Percent Auto 1.1 % (0-2); Eosinophils Absolute Auto 0.2 X10*3/uL (0.0-0.4); Eosinophils Percent Auto 2.7 % (0-4); Hematocrit 33.4 % (37.0-47.0); Hemoglobin 10.8 g/dl (12.0-16.0); Imm Gran Abs Auto 0.03 X10*3/uL (0.00-0.03); Imm Gran Pct Auto 0.5 % (0.0-0.4); Lymphocytes Absolute Auto 0.7 X10*3/uL (1.2-4.9); Lymphocytes Percent Auto 11.6 % (20-40); Mean Corpuscular HGB Conc 32.3 g/dl (31.0-35.0); Mean Corpuscular Hemoglobin 30.5 pg (27.0-33.0); Mean Corpuscular Volume 94.4 fL (80.0-98.0); Monocytes Absolute Auto 0.5 X10*3/uL (0.1-1.2); Monocytes Percent Auto 7.4 % (2-11); Neutrophils Absolute Auto 4.9 x10*3/uL (2.0-8.3); Neutrophils Percent Auto 76.7 % (45-73); Platelet Count 243 X10*3/uL (160-400); Red Blood Count 3.54 X10*6/uL (4.20-5.50); Red Cell Distribution Width 15.7 % (11.0-16.0); White Blood Count 6.4 X10*3/uL (4.8-10.8)
[2024-04-04 17:03] LABS: INTERNATIONAL NORM RATIO 1.1 (0.9-1.1); Prothrombin Time 12.7 SEC (10.9-12.4)
[2024-04-04 17:06] LABS: Partial Thromboplastin Time 33.5 SEC (26.0-36.8)
[2024-04-04 17:10] LABS: Alanine Aminotransferase 14 U/L (0-31); Albumin Level 3.1 g/dL (3.5-5.0); Alkaline Phosphatase 130 U/L (39-117); Anion Gap 12 (12-20); Aspartate Amino Transferase 18 U/L (5-31); Bilirubin Total 0.2 mg/dL (0.0-1.0); Blood Urea Nitrogen 12 mg/dL (9-16); Carbon Dioxide 24 mmol/L (22-29); Chloride 105 mmol/L (96-108); Creatinine Clr Calc Pharmacy 39.3; Estimated Glomerular Filt Rate 43; Glucose Random 406 mg/dL (60-115); Magnesium 1.8 mg/dL (1.6-2.6); Potassium 4.8 mmol/L (3.3-5.1); Sodium 136 mmol/L (135-145)
--- NOTE | 2024-04-04 17:55 | PC.NURSE ---
From [facility] with complaints of left sided hip pain after a fall last night while trying to pull her curtain shit. Reports left sided hip/pelvis pain. Patient with PICC receiving iV ABT for osteo in left leg. Denies pain or discomfort in left leg. C collar in placed- removed by PA student. Spoke with [facility] staff who reported concern for possible headstrike with fall .
[2024-04-04 18:02] VITALS: BP 155/70; PULSE 88; RESP 12; TEMP 36.8; O2SAT 100
--- NOTE | 2024-04-04 18:15 | PC.NURSE ---
Multiple attempts to call report to [facility] unsuccessful at this time
--- NOTE | 2024-04-04 18:23 | PC.NURSE ---
Report given to RN at [facility]
--- NOTE | 2024-04-04 18:23 | PC.NURSE ---
Report given to RN at [facility]
[2024-04-04 19:34] VITALS: BP 155/62; PULSE 86; RESP 16; TEMP 37; O2SAT 98
[2024-04-04 19:35] VITALS: BP 155/62; PULSE 86; RESP 16; TEMP 37; O2SAT 98
== END 2024-04-04 19:35 | disposition home or self-care (01) ==
PROVIDERS: Physician Assistant Medical; Emergency Provider Emergency Medicine Emergency Medical Services; PCP Internal Medicine
DX: S32.9XXA Fracture of unspecified parts of lumbosacral spine and pelvis, initial encounter for closed fracture (principal); R51.9 Headache, unspecified; M54.2 Cervicalgia; R10.2 Pelvic and perineal pain; M25.552 Pain in left hip; W19.XXXA Unspecified fall, initial encounter; Y93.89 Activity, other specified; Y92.89 Other specified places as the place of occurrence of the external cause; Y99.8 Other external cause status; Z79.4 Long term (current) use of insulin; Z79.899 Other long term (current) drug therapy
CPT/HCPCS: 36415; 70450; 71045; 72125; 73502; 80053; 82947; 83735; 85025; 85610; 85730; 99284

== ENCOUNTER 2024-04-15 09:03 | Outpatient (REF) | payer OTHER, SELFPAY | END 2024-04-15 09:04 | disposition home or self-care (01) | LOC: HO.HOSX 09:03 | PROVIDERS: Visit Provider Physician Assistant | DX: Z13.89 Encounter for screening for other disorder (principal) ==

== ENCOUNTER 2024-04-15 10:19 | Outpatient (AMB) | payer OTHER, SELFPAY ==
--- NOTE | 2024-04-15 10:39 | MHC.OFFVIS ---
Intake Visit Reasons: FC - Left pelvic fx, DOI 04/04/24 Intake Note: Doris is a 74 year old female who presents today for a evaluation of her left pelvic fx, DOI 04/04/24. She mentions that she had a fall which lead her to land on her left side. Patient reports her pain is worse with movement. Allergies doxycycline Allergy (Verified 04/15/24 10:39) Rash HPI HPI FC - Left pelvic fx, DOI 04/04/24: Details: 74-year-old female who presents in the office today, as a new patient for an evaluation of left pelvic fracture. The patient presented to the ED on 04/04/24 status post a fall. She was attempting to close the curtain and reached too far, resulting in a fall on her left side. X-rays of the left hip were obtained. She was refrained from weight bearing on the left lower extremity. While in the office today, the patient reports left hip pain, which is worse with movement. She confirmed her fall, which led her to land on her left side. [facility] Medical History Anemia PAF (paroxysmal atrial fibrillation) Port-A-Cath in place Osteomyelitis of great toe of right foot Pancreatic cancer Type 2 diabetes mellitus Pancreatic mass CHF (congestive heart failure) CKD (chronic kidney disease) Afib Surgical History Hx of surgical procedure (~12/21/23) H/O foot surgery H/O dilation and curettage H/O eye surgery [place] teeth removed History of cholecystectomy Family History Father Prostate cancer Sister Breast cancer Social History Household Members: Family Household Members Other:: Son lives upstairs (multi-family home) Housing: Other Housing Other:: two family house Do you presently have visiting nurse or other home services: Yes ([facility]) Alcohol intake: former Patient Tobacco Use Status: Never used Tobacco e-Cigarette/Vaping Use: Never Used Second Hand Smoke Exposure: No service: No Current occupational status: retired Review of Systems Const All systems reviewed & are unremarkable except as noted in HPI and below Physical Exam Const General: cooperative, healthy appearing and no acute distress Resp Effort & Inspection: normal respiratory effort and able to speak in complete sentences Cardio Rate: regular rate Peripheral pulses: Peripheral pulses 2+ throughout GI Palpation (GI): Soft to palpation Skin Lesions: no lesions Rashes: no rashes Extrem Other: Left hip: Able to perform dorsiflexion and plantar flexion. Denies numbness and tingling sensation. Able to perform flexion and extension internally and externally rotate the hip with pain. Office Procedures AMB Fracture Care Fracture Billing Code: Fracture Billing Code Assessment & Plan Assessment & Plan (1) Closed pelvic fracture: Code(s): S32.9XXA - Fracture of unspecified parts of lumbosacral spine and pelvis, initial encounter for closed fracture Category: Medical Plan Ms. Tavarez is a 74-year-old female who presents in the office today, as a new patient for an evaluation of left pelvic fracture. The patient presented to the ED on 04/04/24 status post a fall. She was attempting to close the curtain and reached too far, resulting in a fall on her left side. X-rays of the left hip were obtained. She was refrained from weight bearing on the left lower extremity. While in the office today, the patient reports left hip pain, which is worse with movement. She confirmed her fall, which led her to land on her left side. The case was reviewed by Dr. Pulliam, who was available to speak with me but unable to see the patient, and a collaborative treatment plan was made. Recommendation for a STAT CT scan order was placed in the office today. The patient will follow up once the CT scan is obtained. She is currently residing at [facility]. She will continue to remain non-weight bearing on her left lower extremity. Follow-up will be after obtaining a CT scan, or sooner if needed. X-rays of the left hip, obtained on 04/04/24,revealed: 1. Fracture of the left superior acetabulum extending to the superior pubic rami. 2. Moderate stool ball in the rectum. Orders: Orders CT pelvis wo IV con Today S32.9XXA - Fracture of unspecified parts of lumbosacral spine and pelvis, initial encounter for closed fracture Patient Instructions: Scribed by Rocio Andrews medical or surgical instrument maker, for Tala Ritter PA-C on 04/15/24 at 11:14 am EST. Coding Level of Care Code New Pt Level 4 (67919) Diagnoses Closed pelvic fracture S32.9XXA CPT Codes Fracture Care - Fracture Billing Code: Fracture Billing Code ([id number])
== END 2024-04-15 11:38 | disposition home or self-care (01) ==
LOC: HO.HOS 10:20
PROVIDERS: PCP Internal Medicine; Visit Provider Physician Assistant
DX: S32.402A Unspecified fracture of left acetabulum, initial encounter for closed fracture (principal); S32.512A Fracture of superior rim of left pubis, initial encounter for closed fracture
CPT/HCPCS: 99204

== ENCOUNTER 2024-04-18 15:42 | Outpatient (REF) | payer MEDICARE, OTHER, SELFPAY ==
--- NOTE | ~2024-04-18 | CT_ITS ---
EXAMINATION: CT PELVIS WITHOUT CONTRAST CLINICAL INFORMATION: Fracture. COMPARISON: Hip and pelvic radiograph dated 04/04/2024. CT abdomen/pelvis dated 09/25/2023. TECHNIQUE: Helical scanning was performed with submillimeter collimation through the pelvis. Sagittal and coronal multiplanar 2-D reconstructions were obtained. This CT examination was performed using dose optimization techniques as appropriate, variously including the following: *Automated exposure control *Adjustment of mA and/or kV according to patient size (this includes techniques or standardized protocols for targeted exams where dose is matched to indication/reason for exam; i.e. extremities or head) *Use of iterative reconstruction technique DLP: 261 mGy-cm. FINDINGS: PELVIS: New/increased linear hyperdensities associated with the appendix. The appendix is mildly dilated and fluid-filled measuring up to 1.0 cm with minimal adjacent stranding, new when compared to the prior examination. Findings are consistent with early appendicitis. The remaining visualized intrapelvic structures are unremarkable. No bowel obstruction. Partially visualized right upper quadrant bowel stent. OSSEOUS STRUCTURES: Oblique fracture through the anterior aspect of the left acetabulum/lateral aspect of the left superior pubic ramus with cortical step-off measuring up to 0.4 cm. This contacts the anterior periphery of the acetabular articular surface. Mildly displaced, oblique fracture through the central aspect of the left inferior pubic ramus with cortical step-off measuring up to 0.3 cm. No additional fracture. No dislocation. No joint space narrowing or marginal osteophytes. No concerning lytic or blastic osseous lesion. No evidence of femoral head avascular necrosis. CT/CT pelvis wo IV con IMPRESSION: 1. Oblique fracture through the anterior aspect of the left acetabulum/lateral aspect of the left superior pubic ramus with cortical step-off measuring up to 0.4 cm. This contacts the anterior periphery of the acetabular articular surface. 2. Mildly displaced, oblique fracture through the central aspect of the left inferior pubic ramus with cortical step-off measuring up to 0.3 cm. 3. Findings consistent with early appendicitis. This critical result was discussed with DENISE León at 5:00 PM on 06/18/2023 and it was ascertained that the content and urgency of the report was understood at the time of direct communication. Electronically signed by: Carlos Alberto Webber MD 04/18/2024 05:09 PM [facility]
== END 2024-04-18 15:43 | disposition home or self-care (01) ==
LOC: HO.CT 15:42
PROVIDERS: PCP Internal Medicine; Visit Provider Physician Assistant
DX: S32.9XXA Fracture of unspecified parts of lumbosacral spine and pelvis, initial encounter for closed fracture (principal)
CPT/HCPCS: 72192

== ENCOUNTER 2024-04-18 18:40 | Emergency (ER) | payer MEDICARE, OTHER, SELFPAY ==
[2024-04-18 18:46] VITALS: BP 152/82; PULSE 98; O2SAT 99
[2024-04-18 18:53] VITALS: BP 157/86; PULSE 93; RESP 18; TEMP 36.9; O2SAT 95; BMI 22.3
--- NOTE | 2024-04-18 19:12 | ED_ITS ---
<Statement entered by Danny Narvaez MD - 04/19/24 01:16> The patient did not have any symptoms suggestive of appendicitis. She denies abdominal pain. She denies any change in her appetite. On exam she did have some mild right lower quadrant tenderness without rebound or guarding. The case was discussed with the on-call general surgeon. At this point the recommendation is for the patient to be discharged. If she has worsening symptoms she should return to the emergency room. Otherwise she should follow up with the general surgery office next week. HPI - General Adult General Chief complaint: General Medical Stated complaint: ABD PAIN Time Seen by Provider: 04/18/24 18:55 Source: patient, RN notes reviewed and old records reviewed Mode of arrival: EMS Limitations: no limitations History of Present Illness ED Provider: Faustino HPI narrative: 74-year-old female with past medical history significant for history of pancreatic cancer, poorly-controlled diabetes, atrial fibrillation, recent osteomyelitis and pelvic fracture presents for evaluation of acute appendicitis. ? The patient had an outpatient pelvic CT scan without contrast performed at around 4:00 p.m. today This was ordered as a follow-up to a pelvic fracture The patient was at her snf facility and was finishing up dinner when she received a phone call that told her she had ?early appendicitis on CT scan. She denies any abdominal pain, nausea, vomiting, diarrhea, fevers, chills She has no other complaints or concerns at this time Related Data Home Medications ?Medication ?Instructions ?Recorded ?Confirmed apixaban 5 mg tablet (Eliquis) 5 mg PO BID 09/25/23 01/16/24 atorvastatin 10 mg tablet 10 mg PO BEDTIME 09/25/23 01/16/24 empagliflozin 25 mg-metformin ER 1 tab PO DAILY 09/25/23 01/16/24 1,000 mg tablet,extended release 24hr (Synjardy XR) insulin glargine 100 unit/mL 14 unit subcut BEDTIME 12/17/23 01/16/24 subcutaneous solution (Lantus U-100 Insulin) acetaminophen 325 mg capsule 325 mg PO QID PRN Pain 01/03/24 01/16/24 diltiazem HCl 120 mg 120 mg PO DAILY 01/03/24 01/16/24 capsule,extended release 24 hr, controlled (DILT-XR) ferrous sulfate 325 mg (65 mg 325 mg PO DAILY 01/03/24 01/16/24 iron) tablet Previous Rx's ?Medication ?Instructions ?Recorded metoprolol tartrate 50 mg tablet 50 mg PO BID #60 tabs 10/22/23 ondansetron 8 mg disintegrating 8 mg PO Q8H PRN Nausea And 11/29/23 tablet Vomiting #30 tabs potassium chloride 20 mEq 1 tab PO DAILY #90 ea 01/06/24 tablet,extended release Allergies Allergy/AdvReac Type Severity Reaction Status Date / Time doxycycline Allergy Rash Verified 04/18/24 18:54 Review of Systems 2 Constitutional: Constitutional: Denies body ache(s), Denies chills and Denies fever(s) Eyes: Eyes: Denies blurry vision ENT: Denies sore throat Cardiovascular: Cardiovascular: Denies chest pain Respiratory: Respiratory: Denies cough Gastrointestinal: Gastrointestinal: Denies abdominal pain, Denies nausea and Denies vomiting Musculoskeletal: Musculoskeletal: Denies back pain Integumentary/Breasts: Skin/Breast: Denies rash Psychiatric: Psychiatric: Denies anxiety PMFSH Past Medical History Medical History Anemia PAF (paroxysmal atrial fibrillation) Port-A-Cath in place Osteomyelitis of great toe of right foot Pancreatic cancer Type 2 diabetes mellitus Pancreatic mass CHF (congestive heart failure) CKD (chronic kidney disease) Afib Surgical History Hx of surgical procedure (~12/21/23) H/O foot surgery H/O dilation and curettage H/O eye surgery [place] teeth removed History of cholecystectomy Family History Family History Father Prostate cancer Sister Breast cancer Social History Social History Household Members: Family Household Members Other:: Son lives upstairs (multi-family home) Housing: Other Housing Other:: two family house Do you presently have visiting nurse or other home services: Yes ([facility]) Alcohol intake: former Patient Tobacco Use Status: Never used Tobacco e-Cigarette/Vaping Use: Never Used Second Hand Smoke Exposure: No Advance Directives: No Advance Directives Information Provided: No service: No Current occupational status: retired Physical Exam ED Vital Signs: Vital Signs - 24 hr 04/18/24 18:53 04/18/24 21:48 Temperature 98.5 F 98.5 F Pulse Rate 93 93 Respiratory Rate 18 18 Blood Pressure 157/86 H 157/86 H Pulse Oximetry 95 95 Oxygen Delivery Method Room Air Room Air BMI result Body Mass Index 22.3 Const General: healthy appearing, comfortable, no acute distress, alert and awake Nutritional Appearance: well nourished Orientation/consciousness: patient oriented x3 HENMT Head: Yes normocephalic and Yes atraumatic Eyes Eyelids: Yes eyelids normal Conjunctivae: conjunctivae normal Sclerae: sclerae normal Corneas: corneas normal Pupils: Equal, round and reactive pupils present EOM: EOMs intact bilaterally Neck Neck: Yes full ROM Resp Effort & Inspection: normal respiratory effort, able to speak in complete sentences and not labored Cardio Rate: regular rate Rhythm: regular rhythm GI Inspection: No distended Palpation (GI): Soft to palpation, not firm, Tenderness to palpation present (GI) in the RLQ, no guarding and not rigid Auscultation: normoactive bowel sounds Skin General skin exam: elasticity normal Neuro General: patient oriented x3 Cranial nerves: Yes Equal, round and reactive pupils present and Yes Bilaterally intact EOM present Cognition (Neuro): normal cognition Extrem Other: There is a PICC line in the right upper extremity Course Reevaluation(s) Reevaluation #1: Discussed with Dr. Goncalves again, he feels the patient can safely be discharged. He does not recommend treating the CT scan read only. He would like the patient to follow up in the office next week. I did give the patient return precautions specifically right lower quadrant pain, nausea vomiting, diarrhea or constipation, and especially if she develops any fevers to return to the emergency department immediately. The patient is alert and oriented and reports understanding all these instructions. Time: 20:14 Medical Decision Making Medical Decision Making MDM Narrative: This is a 74-year-old female presents for evaluation of appendicitis on CT scan. She is quite tender in the right lower quadrant. I reviewed her outpatient CT for the does show a we appendicitis. Labs are ordered and are pending. I reached out to General surgery, Dr Goncalves who would like to be reconsulted pending labs put agrees the appendix has an appendicolith and appears mildly dilated. Differential Diagnosis Differential Diagnoses: The differential diagnosis associated with the presentation includes Acute appendicitis Constipation Abdominal pain Complicated appendicitis Admission/Observation Consideration of admission/observation: Escalation of care including admission/observation considered Consult Healthcare Provider Management of the patient was discussed with: Booking Manager (General surgery) Lab Data MDM Lab Attestation statement: I reviewed the patient's lab results. There is no leukocytosis. The patient does have a pneumonic anemia that is actually improved from baseline. Chemistries are significant for a mild hyponatremia with the patient has a history of. Otherwise electrolytes are reassuring. She is diabetic, goes to be elevated to 59 but there is no elevated anion gap. He gets pain mild AST and ALT elevation. Alk-phos is elevated to 1143. This may be related to her recent fracture. 04/18/24 19:38 04/18/24 19:38 Labs: Lab Results 04/18/24 Range/Units 19:38 WBC 8.0 (4.8-10.8) X10*3/uL RBC 3.63 L (4.20-5.50) X10*6/uL Hgb 11.1 L (12.0-16.0) g/dl Hct 33.0 L (37.0-47.0) % MCV 90.9 (80.0-98.0) fL MCH 30.6 (27.0-33.0) pg MCHC 33.6 (31.0-35.0) g/dl RDW 13.9 (11.0-16.0) % Plt Count 335 D (160-400) X10*3/uL MPV 9.3 L (9.4-12.3) fL Immature Gran % (Auto) 0.3 (0.0-0.4) % Neut % (Auto) 84.0 H (45-73) % Lymph % (Auto) 6.2 L (20-40) % [place] % (Auto) 6.9 (2-11) % Eos % (Auto) 2.1 (0-4) % Baso % (Auto) 0.5 (0-2) % Lymph # (Auto) 0.5 L (1.2-4.9) X10*3/uL [place] # (Auto) 0.6 (0.1-1.2) X10*3/uL Eos # (Auto) 0.2 (0.0-0.4) X10*3/uL Baso # (Auto) 0.0 (0.0-0.2) X10*3/uL Abs Immat Gran (auto) 0.02 (0.00-0.03) X10*3/uL Absolute Neuts (auto) 6.7 (2.0-8.3) x10*3/uL Absolute Nucleated RBC 0.000 (0.0-0.012) X10*3/uL Nucleated RBC % (auto) 0.0 (0.0-0.2) /100WBC PT 12.7 H (10.9-12.4) SEC INR 1.1 (0.9-1.1) Sodium 132 L (135-145) mmol/L Potassium 4.7 (3.3-5.1) mmol/L Chloride 103 (96-108) mmol/L Carbon Dioxide 21 L (22-29) mmol/L Anion Gap 13 (12-20) BUN 16 (9-16) mg/dL Creatinine 1.01 (0.5-1.4) mg/dL Estim Creat Clear Calc 43.3 Estimated GFR 53 Random Glucose 259 H (60-115) mg/dL Calcium 9.1 (8.4-10.2) mg/dL Total Bilirubin 0.3 (0.0-1.0) mg/dL AST 85 H (5-31) U/L ALT 81 H (0-31) U/L Alkaline Phosphatase 1143 H (39-117) U/L Total Protein 5.8 L (6.5-8.0) g/dL Albumin 3.1 L (3.5-5.0) g/dL Lipase 12 (8-78) U/L Tests considered The following testing was considered but not selected: Consider CT scan with IV contrast of the abdomen pelvis Discharge Plan Discharge Clinical Impression: Appendicolith Patient Disposition: Xfer [facility] Transfer Details: [place] Instructions: Abdominal Pain (ED) Additional Instructions: Your CT scan did show a mildly dilated appendix with a stone in your appendix. Your blood work today was reassuring. I spoke to the general surgeon who recommends you follow-up in the office next week, The number for Dr. Goncalves is attached. However if you develop any severe right lower abdominal pain, nausea, vomiting, diarrhea, constipation, or fevers return to the emergency department immediately Prescriptions: No Action atorvastatin 10 mg tablet 10 mg PO BEDTIME Eliquis 5 mg tablet 5 mg PO BID Synjardy XR 25-1,000 mg tablet, IR - ER, biphasic 24hr 1 tab PO DAILY ondansetron 8 mg Tablet,Disintegrating 8 mg PO Q8H PRN (Reason: Nausea And Vomiting) Qty: 30 3RF potassium chloride 20 mEq Tablet Extended Release 1 tab PO DAILY Qty: 90 4RF metoprolol tartrate 50 mg Tablet 50 mg PO BID Qty: 60 0RF Protocol: Hold for SBP/HR < HOLD for SBP < : 90 HOLD for HR < : 60 insulin glargine [Lantus U-100 Insulin] 100 unit/mL solution 14 unit subcut BEDTIME acetaminophen 325 mg capsule 325 mg PO QID PRN (Reason: Pain) ferrous sulfate 325 mg (65 mg iron) tablet 325 mg PO DAILY diltiazem HCl [DILT-XR] 120 mg capsule,ext.rel 24h degradable 120 mg PO DAILY Referrals: Sahil Goncalves MD [Physician] - (? appendicitis) Interventions: ED Discharge Assessment Last Done: 04/18/24 21:48 Discharge Date/Time: 04/18/24 21:50 Print Language: Macedonian
[2024-04-18 19:43] LABS: MANUAL DIFF FLAG NO
[2024-04-18 19:45] LABS: Basophils Percent Auto 0.5 % (0-2); Eosinophils Absolute Auto 0.2 X10*3/uL (0.0-0.4); Eosinophils Percent Auto 2.1 % (0-4); Hemoglobin 11.1 g/dl (12.0-16.0); Imm Gran Abs Auto 0.02 X10*3/uL (0.00-0.03); Imm Gran Pct Auto 0.3 % (0.0-0.4); Lymphocytes Absolute Auto 0.5 X10*3/uL (1.2-4.9); Lymphocytes Percent Auto 6.2 % (20-40); Mean Corpuscular HGB Conc 33.6 g/dl (31.0-35.0); Mean Corpuscular Hemoglobin 30.6 pg (27.0-33.0); Mean Corpuscular Volume 90.9 fL (80.0-98.0); Mean Platelet Volume 9.3 fL (9.4-12.3); Monocytes Absolute Auto 0.6 X10*3/uL (0.1-1.2); Monocytes Percent Auto 6.9 % (2-11); Neutrophils Absolute Auto 6.7 x10*3/uL (2.0-8.3); Platelet Count 335 X10*3/uL (160-400); Red Blood Count 3.63 X10*6/uL (4.20-5.50); Red Cell Distribution Width 13.9 % (11.0-16.0)
[2024-04-18 19:53] LABS: INTERNATIONAL NORM RATIO 1.1 (0.9-1.1); Prothrombin Time 12.7 SEC (10.9-12.4)
[2024-04-18 20:02] LABS: Alanine Aminotransferase 81 U/L (0-31); Albumin Level 3.1 g/dL (3.5-5.0); Alkaline Phosphatase 1143 U/L (39-117); Anion Gap 13 (12-20); Aspartate Amino Transferase 85 U/L (5-31); Bilirubin Total 0.3 mg/dL (0.0-1.0); Blood Urea Nitrogen 16 mg/dL (9-16); Calcium 9.1 mg/dL (8.4-10.2); Carbon Dioxide 21 mmol/L (22-29); Chloride 103 mmol/L (96-108); Creatinine Clr Calc Pharmacy 43.3; Estimated Glomerular Filt Rate 53; Glucose Random 259 mg/dL (60-115); Lipase 12 U/L (8-78); Potassium 4.7 mmol/L (3.3-5.1); Sodium 132 mmol/L (135-145); Total Protein 5.8 g/dL (6.5-8.0)
[2024-04-18 21:48] VITALS: BP 157/86; PULSE 93; RESP 18; TEMP 36.9; O2SAT 95
--- NOTE | 2024-04-18 21:48 | PC.NURSE ---
Pt nurse to nurse attempted to be called at [facility], i was ultimetly hung up on after being transferred to 3 different units.
== END 2024-04-18 21:50 | disposition skilled nursing facility (03) ==
PROVIDERS: Physician Assistant; Emergency Provider Emergency Medicine; PCP Internal Medicine
DX: K38.9 Disease of appendix, unspecified (principal); R10.31 Right lower quadrant pain; E11.9 Type 2 diabetes mellitus without complications; I48.0 Paroxysmal atrial fibrillation; C25.9 Malignant neoplasm of pancreas, unspecified; Z79.01 Long term (current) use of anticoagulants; Z79.02 Long term (current) use of antithrombotics/antiplatelets; Z79.4 Long term (current) use of insulin; Z79.899 Other long term (current) drug therapy
CPT/HCPCS: 36415; 72192; 80053; 83690; 85025; 85610; 99282

== ENCOUNTER 2024-04-19 10:22 | Inpatient (IN) | payer MEDICARE, OTHER, SELFPAY ==
[2024-04-19] VITALS (8 sets, daily range): BP systolic 156–180; BP diastolic 64–99; PULSE 62–95; RESP 14–18; TEMP 36.2–36.6; O2SAT 95–100; BMI 21.9; BMI 21.8
--- NOTE | ~2024-04-19 | CT_ITS ---
EXAMINATION: CT ABDOMEN PELVIS WITH IV CONTRAST CLINICAL INFORMATION: RLQ pain n/v COMPARISON: Prior CT abdomen September 2023 TECHNIQUE: Multidetector volumetric imaging was performed from the superior aspect of the liver through the pubic symphysis 85 mL of Omnipaque 350 injected Sagittal and coronal reformatted images were obtained on the technologist's workstation. This CT examination was performed using dose optimization techniques as appropriate, variously including the following: *Automated exposure control *Adjustment of mA and/or kV according to patient size (this includes techniques or standardized protocols for targeted exams where dose is matched to indication/reason for exam; i.e. extremities or head) *Use of iterative reconstruction technique DLP: 400 mGy-cm FINDINGS: LOWER THORAX: Included lung bases are clear. HEPATOBILIARY: There is intra and extrahepatic biliary dilatation. There is a biliary stent in place. GALLBLADDER: Gallbladder not present might have been removed. SPLEEN: Spleen is mildly enlarged 12 and have by 9 cm. PANCREAS: Dilated pancreatic ducts measure up to 8 mm, caused by patient's known pancreatic head mass, there has been further dilatation of the pancreatic duct. Pancreatic head mass has not changed. STOMACH AND GASTROINTESTINAL TRACT: There is a sliding hiatal hernia, stomach is not fully distended. There is a stent in the gastric antrum/duodenum. No evidence of bowel obstruction. Dilated appendix measure up to 1.3 cm with enhancing wall concerning for acute appendicitis, no evidence of appendiceal rupture.. ADRENALS: No adrenal nodules. KIDNEYS/URETERS: There are bilateral multiple renal cystsm the largest on the right side measures 3 cm, fluid matrix, compatible with Bosniak class I cysts, these are benign, no follow-up imaging is indicated. No solid renal lesion. URINARY BLADDER: Partially decompressed. PELVIC VISCERA: Unremarkable PERITONEUM: No free air or fluid. LYMPH NODES: No lymphadenopathy. VASCULAR:Abdominal aorta normal in size, no aneurysm found. BONES, ABDOMINAL WALL AND SOFT TISSUES: Redemonstration of a fracture of the left inferior pubic ramus, mildly displaced, comminuted fracture of the superior pubic ramus extending to involve the adjacent acetabulum. This extending to involve the articular surface of the left hip. Image 29 series 7. Underlying spondylosis of thoracolumbar spine and age-appropriate degenerative changes. CT/CT abdomen pelvis w IV con IMPRESSION: 1. Dilated appendix measure up to 1.3 cm with enhancing wall consistent with acute appendicitis, no evidence of appendiceal rupture. 2. Redemonstration of a pancreatic head mass causing intra and extrahepatic biliary dilatation. There is a biliary stent in place. 3. Dilated pancreatic ducts measure up to 8 mm, caused by patient's known pancreatic head mass, there has been further dilatation of the pancreatic duct. 4. Redemonstration of a fracture of the left inferior pubic ramus, comminuted fracture of the left superior pubic ramus extending to involve the adjacent acetabulum. 5. Other noncritical findings as above. (Referring physician staff is being called, by physician staff assistance, to be alerted of the above critical findings and recommendations.) NANCI 04/19/2024 3:12 PM AVIATION SURVIVAL TECHNICIAN Electronically signed by: Karen Thomas MD 04/19/2024 03:12 PM JAYLEN FOX
--- NOTE | 2024-04-19 10:42 | PC.NURSE ---
Pt presents from [facility], had CT scan done here yest and was found to have +appendicitis. Was here at ED last night for eval but sent back. Today has had multiple episodes of nausea/ vomiting, has pain in RLQ ABD with palpation. Chakraborty fx pelvis (why she was getting CT scan initially). Alert and oriented, breathing even and unlabored, skin pale. PICC line in right arm, flushed and works well. Last food this morning [id number]
--- NOTE | 2024-04-19 10:42 | ED.ABDPAIN ---
HPI - Abdominal Pain General Chief Complaint: Abdominal Pain Stated Complaint: CT SCAN +APPENDICITIS N/V/OLERA PER EMS Time Seen by Provider: 04/19/24 10:26 Source: patient and EMS Mode of arrival: EMS Limitations: no limitations History of Present Illness ED Provider: DENISE Degroot HPI narrative: 74-year-old female history of pancreatic cancer, atrial fib on elqiuis, hypophosphatemia, transaminitis presents w/ right lower quadrant pain, nausea, vomiting since this morning. Reports yesterday she had a pelvic CT done due to pelvic fracture and they noted early appendicitis however her labs were normal and she did not have tenderness in her abdomen therefore they chose the non operative route. Today she has lower abdominal discomfort right greater than left as well as a few episodes of nausea and vomiting. No fevers, chills, chest pain, shortness of breath, headache, vision changes, dizziness, weakness. Related Data Home Medications ?Medication ?Instructions ?Recorded ?Confirmed apixaban 5 mg tablet (Eliquis) 5 mg PO BID 09/25/23 01/16/24 atorvastatin 10 mg tablet 10 mg PO BEDTIME 09/25/23 01/16/24 empagliflozin 25 mg-metformin ER 1 tab PO DAILY 09/25/23 01/16/24 1,000 mg tablet,extended release 24hr (Synjardy XR) insulin glargine 100 unit/mL 14 unit subcut BEDTIME 12/17/23 01/16/24 subcutaneous solution (Lantus U-100 Insulin) acetaminophen 325 mg capsule 325 mg PO QID PRN Pain 01/03/24 01/16/24 diltiazem HCl 120 mg 120 mg PO DAILY 01/03/24 01/16/24 capsule,extended release 24 hr, controlled (DILT-XR) ferrous sulfate 325 mg (65 mg 325 mg PO DAILY 01/03/24 01/16/24 iron) tablet Previous Rx's ?Medication ?Instructions ?Recorded metoprolol tartrate 50 mg tablet 50 mg PO BID #60 tabs 10/22/23 ondansetron 8 mg disintegrating 8 mg PO Q8H PRN Nausea And 11/29/23 tablet Vomiting #30 tabs potassium chloride 20 mEq 1 tab PO DAILY #90 ea 01/06/24 tablet,extended release Allergies Allergy/AdvReac Type Severity Reaction Status Date / Time doxycycline Allergy Rash Verified 04/19/24 10:32 Review of Systems Review of Systems Yes all other systems are reviewed and are negative [facility] Past Medical History Attestation statement: The following information was validated with the patient. Source: old records reviewed and nursing notes reviewed Medical History Anemia PAF (paroxysmal atrial fibrillation) Port-A-Cath in place Osteomyelitis of great toe of right foot Pancreatic cancer Type 2 diabetes mellitus Pancreatic mass CHF (congestive heart failure) CKD (chronic kidney disease) Afib Surgical History Hx of surgical procedure (~12/21/23) H/O foot surgery H/O dilation and curettage H/O eye surgery Trilla teeth removed History of cholecystectomy Family History Family History Father Prostate cancer Sister Breast cancer Social History Social History Household Members: Family Household Members Other:: Son lives upstairs (multi-family home) Housing: Other Housing Other:: two family house Do you presently have visiting nurse or other home services: Yes ([facility]) Alcohol intake: former Patient Tobacco Use Status: Never used Tobacco Smoked in Last 30 Days: No e-Cigarette/Vaping Use: Never Used Second Hand Smoke Exposure: No Use of substances other than those prescribed or required for medical reasons: No Advance Directives: Yes Advance Directives on File: Yes Advance Directives Date on File: 10/01/23 service: No Current occupational status: retired Physical Exam ED Vital Signs: Vital Signs - 24 hr 04/19/24 10:31 04/19/24 12:21 04/19/24 15:48 Temperature 97.6 F 97.5 F Pulse Rate 92 84 92 Respiratory Rate 18 16 16 Blood Pressure 180/99 H 162/86 H 163/88 H Pulse Oximetry 99 96 95 Oxygen Delivery Method Room Air Room Air Room Air BMI result Body Mass Index 21.9 vss Appearance: Alert.? Oriented X3.? No acute distress.? Head: Normocephalic, atraumatic, no step-offs or deformities Eyes: Pupils equal, round and reactive to light.? Neck: Normal inspection.? Neck supple.? CVS: Normal heart rate and rhythm.? Pulses normal.? Respiratory: No respiratory distress.? Breath sounds normal.? Abdomen: Soft and + RLQ tenderness on exam .? Skin: Skin warm and dry.? Normal skin color.? Normal skin turgor.? Extremities: No lower extremity edema.? No calf ttp. 5/5 strength to bilateral upper and lower extremities Neuro: Oriented X 3.? No motor deficit.? No sensory deficit. CN 2-12 intact Course Reevaluation(s) Reevaluation #1: CBC unremarkable. Chemistry with no acute findings needing intervention. She does have significant elevation in alk-phos. Transaminases with a slight increase however still less than yesterday. Dr. Goncalves surgery did request repeat scan for better visualization of appendix. Time: 12:09 Reevaluation #2: CT abdomen pelvis with dilated appendix with enhancing wall consistent with acute appendicitis, discuss this with surgery who will come in and speak to patient of plan. Pancreatic head mass still visualized. Dilated pancreatic ducts noted. Re demonstration of fracture of the left inferior pubic ramus. Patient will be talk to you by Dr. Goncalves who will help guide patient's treatment plan. Time: 15:27 Reevaluation #3: Patient will be admitted under the service of surgery. Possible OR versus antibiotics for 24 hours depending on how patient feels. Medical Decision Making Medical Decision Making [facility] Narrative: 1669 74-year-old female presents with right lower quadrant pain episode of nausea and vomiting this morning yesterday had a CT scan that showed early appendicitis. Physical exam right lower quadrant tenderness on exam. I am concerned for acute appendicitis based off of her symptoms that are now present. Will rule out metabolic derangements. Unlikely perforation. Plan will reach out to surgery, obtain labs. Will not repeat CT at this time unless surgeon request repeat Differential Diagnosis Differential Diagnoses: The differential diagnosis associated with the presentation includes (I am concerned for acute appendicitis based off of her symptoms that are now present. Will rule out metabolic derangements. Unlikely perforation.) Admission/Observation Consideration of admission/observation: Escalation of care including admission/observation considered (possible ) Consult Healthcare Provider Management of the patient was discussed with: Factorer (Dr. Cheng ) Lab Data [facility] Lab Attestation statement: I reviewed the patient's lab results. 04/19/24 11:44 04/19/24 11:44 Labs: Lab Results 04/19/24 Range/Units 11:44 WBC 6.1 (4.8-10.8) X10*3/uL RBC 3.75 L (4.20-5.50) X10*6/uL Hgb 11.5 L (12.0-16.0) g/dl Hct 34.2 L (37.0-47.0) % MCV 91.2 (80.0-98.0) fL MCH 30.7 (27.0-33.0) pg MCHC 33.6 (31.0-35.0) g/dl RDW 13.9 (11.0-16.0) % Plt Count 302 (160-400) X10*3/uL MPV 9.4 (9.4-12.3) fL Immature Gran % (Auto) 0.3 (0.0-0.4) % Neut % (Auto) 85.8 H (45-73) % Lymph % (Auto) 7.4 L (20-40) % Addison % (Auto) 5.0 (2-11) % Eos % (Auto) 1.0 (0-4) % Baso % (Auto) 0.5 (0-2) % Lymph # (Auto) 0.5 L (1.2-4.9) X10*3/uL Addison # (Auto) 0.3 (0.1-1.2) X10*3/uL Eos # (Auto) 0.1 (0.0-0.4) X10*3/uL Baso # (Auto) 0.0 (0.0-0.2) X10*3/uL Abs Immat Gran (auto) 0.02 (0.00-0.03) X10*3/uL Absolute Neuts (auto) 5.2 (2.0-8.3) x10*3/uL Absolute Nucleated RBC 0.000 (0.0-0.012) X10*3/uL Nucleated RBC % (auto) 0.0 (0.0-0.2) /100WBC ESR 53 H (0-20) MM/HR Sodium 137 (135-145) mmol/L Potassium 4.2 (3.3-5.1) mmol/L Chloride 105 (96-108) mmol/L Carbon Dioxide 22 (22-29) mmol/L Anion Gap 14 (12-20) BUN 15 (9-16) mg/dL Creatinine 0.84 (0.5-1.4) mg/dL Estim Creat Clear Calc 52.0 Estimated GFR > 60 Random Glucose 252 H (60-115) mg/dL Lactic Acid 1.4 (0.5-2.0) mmol/L Calcium 9.3 (8.4-10.2) mg/dL Magnesium 1.9 (1.6-2.6) mg/dL Total Bilirubin 0.3 (0.0-1.0) mg/dL AST 37 H (5-31) U/L ALT 61 H (0-31) U/L Alkaline Phosphatase 1080 H (39-117) U/L C-Reactive Protein 2.76 H (< or = 0.50) mg/dL Total Protein 6.1 L (6.5-8.0) g/dL Albumin 3.2 L (3.5-5.0) g/dL Independent Interpretation I performed an independent interpretation of an: CT Scan (reviewed from 04/18/2024 early appendicitis) Radiology Impression Discussion of test interpretation with radiology: I have reviewed the radiologist's reading. Independent Historian Clinical information obtained from an independent historian. History obtained from or confirmed by: EMS External Record Review External record reviewed: Inpatient record, Office record, Outpatient record, Prior outpatient labs, Prior outpatient radiology, Primary care record and Outside ED record Chronic Conditions Patient?s care impacted by: Other (see hpi ) Medications Administered Discontinued Medications Generic Name Dose Route Start Last Admin Trade Name Sergio PRN Reason Stop Dose Admin Ceftriaxone Sodium 1 gm 04/19/24 10:41 04/19/24 12:39 Ceftriaxone Sodium 1 Gm Vial IVPUSH 04/19/24 10:42 1 gm ONCE ONE Administration Iohexol 100 ml 04/19/24 12:58 04/19/24 12:59 Iohexol 350 Mg/Ml 100 Ml Infus..Btl IV 04/19/24 12:59 85 ml ONCE ONE Administration Critical Care Time Critical Care Time Critical Care Time: Yes Total Critical Care Time: 35 Attestation: I attest to this time spent taking care of the patient, obtaining history, physical, reviewing labs, imaging, treatment of patients condition +/- specialist/hospitalist consult Discharge Plan Discharge Clinical Impression: Acute appendicitis, Nausea & vomiting, Pancreatic mass, Closed fracture of inferior pubic ramus Patient Disposition: Still a Patient Prescriptions: No Action atorvastatin 10 mg tablet 10 mg PO BEDTIME Eliquis 5 mg tablet 5 mg PO BID Synjardy XR 25-1,000 mg tablet, IR - ER, biphasic 24hr 1 tab PO DAILY ondansetron 8 mg Tablet,Disintegrating 8 mg PO Q8H PRN (Reason: Nausea And Vomiting) Qty: 30 3RF potassium chloride 20 mEq Tablet Extended Release 1 tab PO DAILY Qty: 90 4RF metoprolol tartrate 50 mg Tablet 50 mg PO BID Qty: 60 0RF Protocol: Hold for SBP/HR < HOLD for SBP < : 90 HOLD for HR < : 60 insulin glargine [Lantus U-100 Insulin] 100 unit/mL solution 14 unit subcut BEDTIME acetaminophen 325 mg capsule 325 mg PO QID PRN (Reason: Pain) ferrous sulfate 325 mg (65 mg iron) tablet 325 mg PO DAILY diltiazem HCl [DILT-XR] 120 mg capsule,ext.rel 24h degradable 120 mg PO DAILY Print Language: Swedish
--- NOTE | 2024-04-19 11:04 | P.CONGS_ITS ---
History of Present Illness Consult details Consult date: 04/19/24 Reason for consult: abdominal pain Requesting physician: Kiko Degroot Narrative: 74-year-old female patient with multiple medical problems presenting with complaints of nausea and vomiting of bilious material this morning. She previously underwent a pelvic CT to evaluate a left pelvic fracture and was thought to possibly have incidentally noted early appendicitis. WBC was normal however. The patient denies any abdominal pain in the right lower quadrant but does note some tenderness when the abdomen is palpated. Her past history is most significant for metastatic pancreatic cancer. 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 She had a stent placement to bypass the pancreatic cancer. Previous attempt at replacement of the stent was unsuccessful due to extrinsic compression from the tumor. She denies fever, chills, chest pain or shortness of breath. Review of Systems 2 Review of Systems: Yes all other systems are reviewed and are negative PMFSH Past Medical History Medical History Anemia PAF (paroxysmal atrial fibrillation) Port-A-Cath in place Osteomyelitis of great toe of right foot Pancreatic cancer Type 2 diabetes mellitus Pancreatic mass CHF (congestive heart failure) CKD (chronic kidney disease) Afib Family History Family History Father Prostate cancer Sister Breast cancer Surgical History Surgical History Hx of surgical procedure (~12/21/23) H/O foot surgery H/O dilation and curettage H/O eye surgery Everly teeth removed History of cholecystectomy Social History Social History Household Members: Family Household Members Other:: Son lives upstairs (multi-family home) Housing: Other Housing Other:: two family house Do you presently have visiting nurse or other home services: Yes ([facility]) Alcohol intake: former Patient Tobacco Use Status: Never used Tobacco Smoked in Last 30 Days: No e-Cigarette/Vaping Use: Never Used Second Hand Smoke Exposure: No Use of substances other than those prescribed or required for medical reasons: No Advance Directives: Yes Advance Directives on File: Yes Advance Directives Date on File: 10/01/23 service: No Current occupational status: retired Meds Allergies Allergy/AdvReac Type Severity Reaction Status Date / Time doxycycline Allergy Rash Verified 04/19/24 10:32 Home Medications ?Medication ?Instructions ?Recorded ?Confirmed ?Last Taken ?Type apixaban 5 mg tablet (Eliquis) 5 mg PO BID 09/25/23 01/16/24 01/14/24 History atorvastatin 10 mg tablet 10 mg PO BEDTIME 09/25/23 01/16/24 12/16/23 History empagliflozin 25 mg-metformin ER 1 tab PO DAILY 09/25/23 01/16/24 01/13/24 History 1,000 mg tablet,extended release 24hr (Synjardy XR) insulin glargine 100 unit/mL 14 unit subcut BEDTIME 12/17/23 01/16/24 12/16/23 History subcutaneous solution (Lantus U-100 Insulin) diltiazem HCl 120 mg 120 mg PO DAILY@89901/03/24 04/19/24 01/17/24 History capsule,extended release 24 hr, controlled (DILT-XR) ferrous sulfate 325 mg (65 mg 325 mg PO DAILY@89901/03/24 04/19/24 Unknown History iron) tablet acetaminophen 500 mg tablet 1,000 mg PO TID 04/19/24 04/19/24 Unknown History ascorbic acid (vitamin C) 500 mg 500 mg PO DAILY@0900 04/19/24 04/19/24 Unknown History tablet bisacodyl 10 mg rectal suppository 10 mg NV DAILY PRN Constipation 04/19/24 04/19/24 Unknown History insulin lispro 100 unit/mL 1 sliding scale dose subcut TIDAC 04/19/24 04/19/24 Unknown History subcutaneous pen (Humalog KwikPen (U-100) Insulin) magnesium hydroxide 400 mg/5 mL 30 ml PO DAILY PRN no BM in 3 days 04/19/24 04/19/24 Unknown History oral suspension (Milk of Magnesia) metoprolol tartrate 25 mg tablet 25 mg PO BID 04/19/24 04/19/24 Unknown History potassium chloride 10 mEq 40 meq PO BID 04/19/24 04/19/24 Unknown History capsule,extended release sodium phosphates 19 gram-7 118 ml NV DAILY PRN Constipation 04/19/24 04/19/24 Unknown History gram/118 mL enema (Fleet Enema) tramadol 50 mg tablet 50 mg PO Q6H PRN Pain 04/19/24 04/19/24 Unknown History Physical Exam 2 Vital Signs: Vital Signs: Last Vital Signs Temp 97.6 F 04/19/24 10:31 Pulse 92 04/19/24 10:31 Resp 18 04/19/24 10:31 BP 180/99 H 04/19/24 10:31 Pulse Ox 99 04/19/24 10:31 O2 Del Method Room Air 04/19/24 10:31 BMI result Body Mass Index 21.9 Const: General: no acute distress Nutritional Appearance: thin O rientation/consciousness: patient oriented x3 HEENT: Head: Yes normocephalic and Yes atraumatic Resp: Effort & Inspection: normal respiratory effort, no audible wheezes, no cough and no respiratory distress GI: Inspection: Yes normal to inspection Palpation (GI): Soft to palpation, Tenderness to palpation present (GI) in the LLQ; not in the RLQ, not at McBurney's point and Mendoza's sign negative, no guarding and not rigid P ercussion: Yes normal to percussion Auscultation: normal bowel sounds R ectal Exam - Female: deferred Skin: Other: Pale, warm Neuro: General: patient oriented x3 Extrem: General: No edema Results Labs 04/19/24 11:44 04/19/24 11:44 Labs: All other labs normal. Imaging Abdomen CT scan report/results: pending Assessment and Plan (1) Pancreatic cancer: Qualifiers: Pancreatic malignancy location: head of pancreas Qualified Code(s): C 25.0 - Malignant neoplasm of head of pancreas Status: Acute (2) Appendicolith: Status: Acute (3) Appendicitis: Qualifiers: Appendicitis type: acute appendicitis Acute appendicitis type: other Q ualified Code(s): K35.890 - Other acute appendicitis without perforation or gangrene Status: Acute Plan 74-year-old female patient with multiple medical problems including metastatic pancreatic cancer status post stent placement, found to have changes noted on a pelvic CT in the appendix suggestive of early appendicitis. Patient was noted to have a normal WBC yesterday, repeat labs pending today. Patient returns to the emergency department because of nausea and vomiting which may actually be due to the large pancreatic mass obstructing the duodenum. Suggest obtaining a CT abdomen and pelvis to better evaluate the entire GI tract. Laboratory should be repeated as well. 04/19/2024 16:25: Patient re-examined. Minimal to no tenderness in the right lower quadrant, no peritoneal signs. Mainly tender left lower quadrant from pelvic fracture. Reading of CT reviewed with the patient. Options include laparoscopic or possible open appendectomy tonight or trial of non operative management with IV antibiotics. The risks and benefits of both discussed in detail. Patient wishes to avoid surgery if possible and is willing to try treatment with IV antibiotics. She understands that if her symptoms seem to worsen, she will need to proceed to appendectomy. She understands and agrees with the plan. We will repeat laboratories in a.m.. I will hold her Eliquis for tonight. Hospitalist consultation for management of medications while NPO. Procedures Date of Service Date of Service: 04/19/24
[2024-04-19 11:49] LABS: MANUAL DIFF FLAG NO
[2024-04-19 11:52] LABS: Basophils Percent Auto 0.5 % (0-2); Eosinophils Absolute Auto 0.1 X10*3/uL (0.0-0.4); Hematocrit 34.2 % (37.0-47.0); Hemoglobin 11.5 g/dl (12.0-16.0); Imm Gran Abs Auto 0.02 X10*3/uL (0.00-0.03); Imm Gran Pct Auto 0.3 % (0.0-0.4); Lymphocytes Absolute Auto 0.5 X10*3/uL (1.2-4.9); Lymphocytes Percent Auto 7.4 % (20-40); Mean Corpuscular HGB Conc 33.6 g/dl (31.0-35.0); Mean Corpuscular Hemoglobin 30.7 pg (27.0-33.0); Mean Corpuscular Volume 91.2 fL (80.0-98.0); Mean Platelet Volume 9.4 fL (9.4-12.3); Monocytes Absolute Auto 0.3 X10*3/uL (0.1-1.2); Neutrophils Absolute Auto 5.2 x10*3/uL (2.0-8.3); Neutrophils Percent Auto 85.8 % (45-73); Platelet Count 302 X10*3/uL (160-400); Red Blood Count 3.75 X10*6/uL (4.20-5.50); Red Cell Distribution Width 13.9 % (11.0-16.0); White Blood Count 6.1 X10*3/uL (4.8-10.8)
--- NOTE | 2024-04-19 11:56 | PC.NURSE ---
Pt hard stick, techs attempting blood draws
[2024-04-19 12:03] LABS: Lactic Acid 1.4 mmol/L (0.5-2.0)
[2024-04-19 12:04] LABS: Alanine Aminotransferase 61 U/L (0-31); Albumin Level 3.2 g/dL (3.5-5.0); Alkaline Phosphatase 1080 U/L (39-117); Anion Gap 14 (12-20); Aspartate Amino Transferase 37 U/L (5-31); Bilirubin Total 0.3 mg/dL (0.0-1.0); Blood Urea Nitrogen 15 mg/dL (9-16); Calcium 9.3 mg/dL (8.4-10.2); Carbon Dioxide 22 mmol/L (22-29); Chloride 105 mmol/L (96-108); Estimated Glomerular Filt Rate > 60; Glucose Random 252 mg/dL (60-115); Magnesium 1.9 mg/dL (1.6-2.6); Potassium 4.2 mmol/L (3.3-5.1); Sodium 137 mmol/L (135-145); Total Protein 6.1 g/dL (6.5-8.0)
[2024-04-19 12:30] LABS: C Reactive Protein 2.76 mg/dL (< or = 0.50)
[2024-04-19] MEDS: cefTRIAXone sodium 1 GM VIAL IVPUSH (12:39)
[2024-04-19] MEDS: iohexoL 350 MG/ML 100 ML INFUS..BTL IV (12:59)
[2024-04-19 13:01] LABS: Erythrocyte Sedimentation Rate 53 MM/HR (0-20)
--- NOTE | 2024-04-19 16:29 | PHA.MEDREC ---
Addendum entered by Wil Barboza RPh 04/19/24 16:34: Reviewed by [facility] Original Note: Pharmacy Consult ? Medication Reconciliation Pharmacy has completed the medication reconciliation. Used list from [facility].
[2024-04-19] MEDS: Piperacillin Sodium/Tazobactam 3.375 GM in 0.9 % Sodium Chloride 50 ML IV ×2 (16:42→21:37)
[2024-04-19] MEDS: 0.9 % Sodium Chloride Flush 3 ML SYRINGE IVFLUSH ×2 (17:05→21:41)
[2024-04-19] MEDS: Dextrose 5 % and Lactated Ring 1,000 ML 100 ML IVCONT (17:05)
--- NOTE | 2024-04-19 18:34 | HO.PM.IMCN ---
History of Present Illness Data of Consult Service Date: 04/19/24 Primary Care Provider: Danyell Glass MD HPI Reason for consult: Medical management Patient is a 74-year-old female with a PMH significant for paroxysmal AFib on Eliquis, insulin-dependent type 2 diabetes, HFpEF, CKD 2, PVD, metastatic pancreatic cancer with chemo currently on hold and s/p biliary stenting, iron deficiency anemia, and hx of osteomyelitis s/p right great toe amputation who is admitted to the hospital under general surgery services for acute appendicitis. Patient has had a complicated recent PMH, including osteomyelitis and amputation of right great toe in December. Patient was discharged to [facility] where she had a fall on 04/04 attempting to close her current and was found to have a left pelvic rami and acetabulum fracture. Patient was discharged from the ED with orthopedic recommendation for nonweightbearing on left lower extremity. On follow-up imaging on 04/18 incidental finding showed likely early appendicitis. Patient was experiencing N/V/abd pain. General surgery's plan is to admit patient and treat with IV antibiotics, and keep NPO for possible laparoscopic or open appendectomy in the morning. Hospitalist consult for medication management while NPO. Patient seen and evaluated in her room where she is resting comfortably in bed. Patient reports currently at rest has neither pelvic nor abdominal pain, though does have some pain with movement. Currently no nausea and vomiting. Overall, patient reports she feels ?okay.? Denies chest pain/pressure, palpitations. No fever, chills. Denies shortness or breath or difficulty breathing. Chronic nonproductive cough at baseline. Review of Systems Review of Systems: Negative except for that stated HPI Yes all other systems are reviewed and are negative [facility] Medical History Anemia PAF (paroxysmal atrial fibrillation) Port-A-Cath in place Osteomyelitis of great toe of right foot Pancreatic cancer Type 2 diabetes mellitus Pancreatic mass CHF (congestive heart failure) CKD (chronic kidney disease) Afib Family History Father Prostate cancer Sister Breast cancer Surgical History Hx of surgical procedure (~12/21/23) H/O foot surgery H/O dilation and curettage H/O eye surgery [place] teeth removed History of cholecystectomy Social History Household Members: Family Household Members Other:: lives on 1st floor. Son lives on 2nd floor Housing: House Housing Other:: two family house Do you presently have visiting nurse or other home services: Yes (charles gallegos nurse for woundcare on foot) Alcohol intake: former Patient Tobacco Use Status: Never used Tobacco e-Cigarette/Vaping Use: Never Used Second Hand Smoke Exposure: No Advance Directives Date on File: 10/01/23 service: No Current occupational status: retired Meds Allergies Allergy/AdvReac Type Severity Reaction Status Date / Time doxycycline Allergy Rash Verified 04/19/24 10:32 Active Medications: Current Medications Acetaminophen (Acetaminophen 325 Mg Tablet) 650 mg PO Q6H PRN PRN Reason: Pain, Mild (Pain Scale 1-3), fever or headache Hydromorphone HCl (Hydromorphone Hcl 0.5 Mg/0.5 Ml Syringe) 0.25 mg IVPUSH Q3H PRN; Protocol PRN Reason: Pain, Severe (Pain Scale 7-10) Dextrose/Lactated Ringer's (D5lr) 1,000 mls @ 100 mls/hr IVCONT .Q10H [facility] Last Admin: 04/19/24 17:05 Dose: 100 mls/hr Piperacillin Sod/Tazobactam (Sod 3.375 gm/ Sodium Chloride) 50 mls @ 100 mls/hr IV Q6H [facility] Last Infusion: 04/19/24 17:17 Dose: Infused Melatonin (Melatonin 3 Mg Tablet) 6 mg PO BEDTIME PRN PRN Reason: Insomnia Ondansetron HCl (Ondansetron Hcl 4 Mg/2 Ml Vial) 4 mg IVPUSH QID PRN PRN Reason: Nausea Oxycodone HCl (Oxycodone Hcl Immed Release 5 Mg Tablet) 5 mg PO Q6H PRN PRN Reason: Pain, Moderate(Pain Scale 4-6) Sodium Chloride (0.9 % Sodium Chloride Flush 3 Ml Syringe) 3 ml IVFLUSH QSHIFT [facility] Last Admin: 04/19/24 17:05 Dose: 3 ml Home Medications ?Medication ?Instructions ?Recorded ?Confirmed ?Last Taken ?Type apixaban 5 mg tablet (Eliquis) 5 mg PO BID 09/25/23 04/19/24 01/14/24 History atorvastatin 10 mg tablet 10 mg PO BEDTIME@199909/25/23 04/19/24 12/16/23 History insulin glargine 100 unit/mL 6 unit subcut BEDTIME 12/17/23 04/19/24 12/16/23 History subcutaneous solution (Lantus U-100 Insulin) diltiazem HCl 120 mg 120 mg PO DAILY@89901/03/24 04/19/24 01/17/24 History capsule,extended release 24 hr, controlled (DILT-XR) ferrous sulfate 325 mg (65 mg 325 mg PO DAILY@89901/03/24 04/19/24 Unknown History iron) tablet acetaminophen 500 mg tablet 1,000 mg PO TID 04/19/24 04/19/24 Unknown History ascorbic acid (vitamin C) 500 mg 500 mg PO DAILY@89904/19/24 04/19/24 Unknown History tablet bisacodyl 10 mg rectal suppository 10 mg VA DAILY PRN Constipation 04/19/24 04/19/24 Unknown History insulin lispro 100 unit/mL 1 sliding scale dose subcut TIDAC 04/19/24 04/19/24 Unknown History subcutaneous pen (Humalog KwikPen (U-100) Insulin) magnesium hydroxide 400 mg/5 mL 30 ml PO DAILY PRN no BM in 3 days 04/19/24 04/19/24 Unknown History oral suspension (Milk of Magnesia) metoprolol tartrate 25 mg tablet 25 mg PO BID 04/19/24 04/19/24 Unknown History potassium chloride 10 mEq 40 meq PO BID 04/19/24 04/19/24 Unknown History capsule,extended release sodium phosphates 19 gram-7 118 ml VA DAILY PRN Constipation 04/19/24 04/19/24 Unknown History gram/118 mL enema (Fleet Enema) tramadol 50 mg tablet 50 mg PO Q6H PRN Pain 04/19/24 04/19/24 Unknown History Physical Exam Vital Signs and Narrative: Vital Signs: Last Vital Signs Temp 97.1 F 04/19/24 18:18 Pulse 94 04/19/24 18:18 Resp 16 04/19/24 18:18 BP 179/86 H 04/19/24 18:18 Pulse Ox 98 04/19/24 18:18 O2 Del Method Room Air 04/19/24 18:18 BMI result Body Mass Index 21.9 General: AOx3, frail-looking, in no acute distress Resp: CTA bilaterally CVS: S1, S2, RRR GI: +BS, no distention, +RLQ tenderness Skin: Warm, dry Neuro: Cranial nerves II-XII grossly intact bilaterally. Motor grossly intact bilaterally Extremities: No edema Psych: Appropriate affect Results Labs 04/19/24 11:44 04/19/24 11:44 Labs: Laboratory Results - last 24 hr 04/19/24 11:44 MCV 91.2 MCH 30.7 MCHC 33.6 RDW 13.9 Plt Count 302 MPV 9.4 Immature Gran % (Auto) 0.3 Neut % (Auto) 85.8 H Lymph % (Auto) 7.4 L [place] % (Auto) 5.0 Eos % (Auto) 1.0 Baso % (Auto) 0.5 Lymph # (Auto) 0.5 L [place] # (Auto) 0.3 Eos # (Auto) 0.1 Baso # (Auto) 0.0 Abs Immat Gran (auto) 0.02 Absolute Neuts (auto) 5.2 Absolute Nucleated RBC 0.000 Nucleated RBC % (auto) 0.0 ESR 53 H Anion Gap 14 Estim Creat Clear Calc 52.0 Estimated GFR > 60 Random Glucose 252 H Lactic Acid 1.4 Calcium 9.3 Magnesium 1.9 Total Bilirubin 0.3 AST 37 H ALT 61 H Alkaline Phosphatase 1080 H C-Reactive Protein 2.76 H Total Protein 6.1 L Albumin 3.2 L Imaging Radiologist's Impressions: Impressions Abdomen/Pelvis CT 04/19/24 10:53 IMPRESSION: 1. Dilated appendix measure up to 1.3 cm with enhancing wall consistent with acute appendicitis, no evidence of appendiceal rupture. 2. Redemonstration of a pancreatic head mass causing intra and extrahepatic biliary dilatation. There is a biliary stent in place. 3. Dilated pancreatic ducts measure up to 8 mm, caused by patient's known pancreatic head mass, there has been further dilatation of the pancreatic duct. 4. Redemonstration of a fracture of the left inferior pubic ramus, comminuted fracture of the left superior pubic ramus extending to involve the adjacent acetabulum. 5. Other noncritical findings as above. (Referring physician staff is being called, by physician staff assistance, to be alerted of the above critical findings and recommendations.) 04/19/2024 3:12 PM RUNNER MAN Electronically signed by: Karen Thomas MD 04/19/2024 03:12 PM JAYLEN Assessment and Plan (1) Acute appendicitis: Status: Acute Plan Patient is a 74-year-old female with a PMH significant for paroxysmal AFib on Eliquis, insulin-dependent type 2 diabetes, HFpEF, CKD 2, PVD, metastatic pancreatic cancer with chemo currently on hold and s/p biliary stenting, iron deficiency anemia, and hx of osteomyelitis s/p right great toe amputation who is admitted to the hospital under general surgery services for acute appendicitis. Hospitalist consult for medical management Acute appendicitis Currently NPO with conservative treatment with antibiotics Plan as per General surgery Insulin-dependent type [address] on sliding scale insulin, half dose of Lantus Paroxysmal AFib Hold Eliquis, continue per General surgery Continue diltiazem, metoprolol Iron-deficiency anemia H&H stable, at baseline Continue iron supplementation Continue bowel regimen for constipation HLD Continue statin Thank you for allowing us to participate in the care of this patient. We will continue following along with you for now.
[2024-04-19 20:20] LABS: Glucose, Whole Blood 225 mg/dL (60-115)
[2024-04-19] MEDS: Insulin Lispro 100 UNIT/ML 3 ML VIAL SUBCUT (20:57)
[2024-04-19] MEDS: Insulin Glargine,Hum.rec.anlog 100 UNIT/ML 10 ML VIAL SUBCUT (20:58)
[2024-04-19] MEDS: Metoprolol Tartrate 25 MG TABLET PO (22:06)
[2024-04-19] MEDS: Potassium Chloride ER 20 MEQ TAB.ER.PRT 40 MEQ PO (22:06)
[2024-04-20] MEDS: HYDROmorphone HCl 0.5 MG/0.5 ML SYRINGE 0.25 MG IVPUSH (01:30)
[2024-04-20 03:18] VITALS: BP 162/79; PULSE 100; RESP 18; TEMP 36.4; O2SAT 98
[2024-04-20] MEDS: Piperacillin Sodium/Tazobactam 3.375 GM in 0.9 % Sodium Chloride 50 ML IV ×4 (03:42→21:27)
[2024-04-20] MEDS: Dextrose 5 % and Lactated Ring 1,000 ML 100 ML IVCONT (03:42)
[2024-04-20 05:38] LABS: MANUAL DIFF FLAG NO
[2024-04-20 05:47] LABS: Basophils Percent Auto 0.4 % (0-2); Eosinophils Absolute Auto 0.1 X10*3/uL (0.0-0.4); Eosinophils Percent Auto 0.7 % (0-4); Hematocrit 35.4 % (37.0-47.0); Hemoglobin 11.9 g/dl (12.0-16.0); Imm Gran Abs Auto 0.02 X10*3/uL (0.00-0.03); Imm Gran Pct Auto 0.2 % (0.0-0.4); Lymphocytes Absolute Auto 0.2 X10*3/uL (1.2-4.9); Lymphocytes Percent Auto 2.2 % (20-40); Mean Corpuscular HGB Conc 33.6 g/dl (31.0-35.0); Mean Corpuscular Hemoglobin 30.6 pg (27.0-33.0); Mean Platelet Volume 9.3 fL (9.4-12.3); Monocytes Absolute Auto 0.5 X10*3/uL (0.1-1.2); Monocytes Percent Auto 6.6 % (2-11); Neutrophils Absolute Auto 7.3 x10*3/uL (2.0-8.3); Neutrophils Percent Auto 89.9 % (45-73); Platelet Count 294 X10*3/uL (160-400); Red Blood Count 3.89 X10*6/uL (4.20-5.50); White Blood Count 8.2 X10*3/uL (4.8-10.8)
[2024-04-20 05:59] LABS: Alanine Aminotransferase 195 U/L (0-31); Alkaline Phosphatase 1551 U/L (39-117); Anion Gap 13 (12-20); Aspartate Amino Transferase 381 U/L (5-31); Bilirubin Total 1.3 mg/dL (0.0-1.0); Blood Urea Nitrogen 10 mg/dL (9-16); Calcium 8.9 mg/dL (8.4-10.2); Carbon Dioxide 23 mmol/L (22-29); Chloride 105 mmol/L (96-108); Creatinine Clr Calc Pharmacy 52.6; Estimated Glomerular Filt Rate > 60; Glucose Random 289 mg/dL (60-115); Potassium 4.6 mmol/L (3.3-5.1); Sodium 136 mmol/L (135-145); Total Protein 5.8 g/dL (6.5-8.0)
[2024-04-20 07:31] LABS: Glucose, Whole Blood 271 mg/dL (60-115)
[2024-04-20 08:00] VITALS: BP 139/68; PULSE 98; RESP 17; TEMP 36.8; O2SAT 99
[2024-04-20] MEDS: Ascorbic Acid 500 MG TABLET PO (08:17)
[2024-04-20] MEDS: Metoprolol Tartrate 25 MG TABLET PO ×2 (08:17→20:11)
[2024-04-20] MEDS: dilTIAZem HCL CD 120 MG CAP.ER.DEG PO (08:17)
[2024-04-20] MEDS: Ferrous Sulfate 324 MG TABLET.DR PO (08:17)
[2024-04-20] MEDS: Potassium Chloride ER 20 MEQ TAB.ER.PRT 40 MEQ PO ×2 (08:18→20:11)
[2024-04-20] MEDS: Insulin Lispro 100 UNIT/ML 3 ML VIAL SUBCUT ×4 (08:25→20:13)
--- NOTE | 2024-04-20 08:26 | P.PNGS_ITS ---
Subjective Subjective Date of Service: 04/20/24 Interval history: Patient mainly reports left leg pain. Denies pain in the abdomen right lower quadrant. Does have some pain in the left lower quadrant associated with pelvis. Reports bowel movement today. Physical Exam 2 Vital Signs: Vital Signs: Last Vital Signs Temp 98.2 F 04/20/24 08:00 Pulse 98 04/20/24 08:00 Resp 17 04/20/24 08:00 BP 139/68 04/20/24 08:00 Pulse Ox 99 04/20/24 08:00 O2 Del Method Room Air 04/20/24 08:00 BMI result Body Mass Index 21.8 Const: General: no acute distress and ill appearing Nutritional Appearance: thin Orientation/consciousness: patient oriented x3 Resp: Effort & Inspection: normal respiratory effort GI: Other: Soft, nondistended, no tenderness in the right lower quadrant over McBurney's point. No rebound, guarding or rigidity. Neuro: General: patient oriented x3 Objective Data Active Medications Acetaminophen (Acetaminophen 325 Mg Tablet) 650 mg PO Q6H PRN PRN Reason: Pain, Mild (Pain Scale 1-3), fever or headache Ascorbic Acid (Ascorbic Acid 500 Mg Tablet) 500 mg PO DAILY@0900 [facility]ENDING [facility] TO [facility] Last Admin: 04/20/24 08:17 Dose: 500 mg Documented By: KISHA Atorvastatin Calcium (Atorvastatin Calcium 10 Mg Tablet) 10 mg PO BEDTIME@2000 ZENY Bisacodyl (Bisacodyl 10 Mg Supp.Rect) 10 mg VT DAILY PRN PRN Reason: Constipation Diltiazem HCl (Diltiazem Hcl Cd 120 Mg Cap.Er.Deg) 120 mg PO DAILY@0900 [facility]; Protocol Last Admin: 04/20/24 08:17 Dose: 120 mg Documented By: KISHA Ferrous Sulfate (Ferrous Sulfate 324 Mg Tablet.Dr) 324 mg PO DAILY@0900 [facility] Last Admin: 04/20/24 08:17 Dose: 324 mg Documented By: KISHA Glucose (Glucose Gel 15 Gm Gel..Gram.) 15 gm PO Q15M PRN; Protocol PRN Reason: per Hypoglycemia Standing Ord. Hydromorphone HCl (Hydromorphone Hcl 0.5 Mg/0.5 Ml Syringe) 0.25 mg IVPUSH Q3H PRN; Protocol PRN Reason: Pain, Severe (Pain Scale 7-10) Last Admin: 04/20/24 01:30 Dose: 0.25 mg Documented By: AMIE Dextrose/Lactated Ringer's (D5lr) 1,000 mls @ 100 mls/hr IVCONT .Q10H [facility] Last Admin: 04/20/24 03:42 Dose: 100 mls/hr Documented By: AMIE Piperacillin Sod/Tazobactam (Sod 3.375 gm/ Sodium Chloride) 50 mls @ 100 mls/hr IV Q6H [facility] Last Infusion: 04/20/24 04:16 Dose: Infused Documented By: AMIE Dextrose (D10) 250 mls @ 750 mls/hr IV Q15M PRN; Protocol PRN Reason: per Hypoglycemia Standing Ord. Insulin Glargine (Insulin Glargine,Hum.Rec.Anlog 100 Unit/Ml 10 Ml Vial) 3 unit SUBCUT BEDTIME [facility] Last Admin: 04/19/24 20:58 Dose: 3 unit Documented By: AMIE Insulin Human Lispro (Insulin Lispro 100 Unit/Ml 3 Ml Vial) 0 unit SUBCUT QIDACHS [facility]; Protocol Last Admin: 04/19/24 20:57 Dose: 4 unit Documented By: AMIE Magnesium Hydroxide (Milk Of Magnesia 30 Ml Oral.Susp) 30 ml PO DAILY PRN PRN Reason: no BM in 3 days Melatonin (Melatonin 3 Mg Tablet) 6 mg PO BEDTIME PRN PRN Reason: Insomnia Metoprolol Tartrate (Metoprolol Tartrate 25 Mg Tablet) 25 mg PO BID [facility]; Protocol Last Admin: 04/20/24 08:17 Dose: 25 mg Documented By: KISHA Ondansetron HCl (Ondansetron Hcl 4 Mg/2 Ml Vial) 4 mg IVPUSH QID PRN PRN Reason: Nausea Oxycodone HCl (Oxycodone Hcl Immed Release 5 Mg Tablet) 5 mg PO Q6H PRN PRN Reason: Pain, Moderate(Pain Scale 4-6) Potassium Chloride (Potassium Chloride Er 20 Meq Tab.Er.Prt) 40 meq PO BID [facility] Last Admin: 04/20/24 08:18 Dose: 40 meq Documented By: KISHA Sodium Biphosphate/Sodium Phosphate (Sodium Phosphate,[place]-Dibasic 133 Ml Enema) 118 ml [place] DAILY PRN PRN Reason: Constipation Sodium Chloride (0.9 % Sodium Chloride Flush 3 Ml Syringe) 3 ml IVFLUSH QSHIFT [facility] Last Admin: 04/20/24 08:18 Dose: Not Given Documented By: KISHA Non-Admin Reason: IV Running Labs 04/20/24 05:06 04/20/24 05:06 Labs: Laboratory Results - last 24 hr 04/19/24 04/19/24 04/20/24 11:44 20:07 05:06 MCV 91.2 91.0 MCH 30.7 30.6 MCHC 33.6 33.6 RDW 13.9 14.0 Plt Count 302 294 MPV 9.4 9.3 L Immature Gran % (Auto) 0.3 0.2 Neut % (Auto) 85.8 H 89.9 H Lymph % (Auto) 7.4 L 2.2 L [place] % (Auto) 5.0 6.6 Eos % (Auto) 1.0 0.7 Baso % (Auto) 0.5 0.4 Lymph # (Auto) 0.5 L 0.2 L [place] # (Auto) 0.3 0.5 Eos # (Auto) 0.1 0.1 Baso # (Auto) 0.0 0.0 Abs Immat Gran (auto) 0.02 0.02 Absolute Neuts (auto) 5.2 7.3 Absolute Nucleated RBC 0.000 0.000 Nucleated RBC % (auto) 0.0 0.0 ESR 53 H Anion Gap 14 13 Estim Creat Clear Calc 52.0 52.6 Estimated GFR > 60 > 60 POC Glucose 225 H Random Glucose 252 H 289 H Lactic Acid 1.4 Calcium 9.3 8.9 Magnesium 1.9 Total Bilirubin 0.3 1.3 H AST 37 H 381 H ALT 61 H 195 H Alkaline Phosphatase 1080 H 1551 H C-Reactive Protein 2.76 H Total Protein 6.1 L 5.8 L Albumin 3.2 L 3.0 L 04/20/24 07:24 MCV MCH MCHC RDW Plt Count MPV Immature Gran % (Auto) Neut % (Auto) Lymph % (Auto) [place] % (Auto) Eos % (Auto) Baso % (Auto) Lymph # (Auto) [place] # (Auto) Eos # (Auto) Baso # (Auto) Abs Immat Gran (auto) Absolute Neuts (auto) Absolute Nucleated RBC Nucleated RBC % (auto) ESR Anion Gap Estim Creat Clear Calc Estimated GFR POC Glucose 271 H Random Glucose Lactic Acid Calcium Magnesium Total Bilirubin AST ALT Alkaline Phosphatase C-Reactive Protein Total Protein Albumin Procedures Date of Service Date of Service: 04/20/24 Progress Note: A&P Assessment and plan (1) Acute appendicitis: Status: Acute Plan Overall the patient remains stable with no change in her abdominal symptoms. She is nontender to palpation and there are no peritoneal signs. WBC remains normal as well. Patient did present with nausea and vomiting and has a large duodenal stent for the pancreatic cancer. We will consult Gastroenterology. Time Spent With Patient Time: Total time managing care of this patient today ____ minutes. Quality Stroke Does the patient have a stroke diagnosis?: No VTE Prior VTE?: Yes VTE Risk Level:: Surgical - high VTE Device Contraindication: N/A - Device Ordered VTE Drug Contraindication: N/A - Med Ordered
--- NOTE | 2024-04-20 09:21 | MHC.CM.PN ---
PT REPORTS SHE LIVES ALONE AND HER SON LIVES UPSTAIRS SHE HAS BEEN AT [facility] FOR STR SINCE BEFORE HER PELVIC FX SHE USES A WALKER PRN AT [facility] HCP ON FILE PCP: SRINIVASA GUERRERO IMM DELIVERED PT WILL NEED A NEW PT EVAL TO RETURN TO STR, SHE HOPES TO RETURN TO [facility] BLS TRANSPORT
[2024-04-20 11:24] LABS: Glucose, Whole Blood 305 mg/dL (60-115)
--- NOTE | 2024-04-20 11:30 | P.PNIM_ITS ---
Subjective Subjective Date of Service: 04/20/24 Interval History: Patient denies nausea, no vomiting, no abdominal pain, have left pelvic discomfort due to recent left inferior pubic ramus fracture. Blood sugars elevated, tolerating diet, denies fever, no chills, no lightheadedness, no dizziness. Review of Systems All other symptoms reviewed and are negative. Physical Exam 2 Vital Signs: Vital Signs: Last Vital Signs Temp 98.2 F 04/20/24 08:00 Pulse 98 04/20/24 08:00 Resp 17 04/20/24 08:00 BP 139/68 04/20/24 08:00 Pulse Ox 99 04/20/24 08:00 O2 Del Method Room Air 04/20/24 08:00 BMI result Body Mass Index 21.8 Const: Other: General awake alert x3, in no acute distress. Neck no JVD. CVS regular rate rhythm, Respiratory lungs clear to auscultation, no respiratory distress, no wheeze, no rhonchi. Gastrointestinal abdomen soft, non tender, bowel sounds audible. No rebound Extremities no edema. Neuro non focal Skin no rash psyche appropriate affect Objective Data Active Medications Acetaminophen (Acetaminophen 325 Mg Tablet) 650 mg PO Q6H PRN PRN Reason: Pain, Mild (Pain Scale 1-3), fever or headache Ascorbic Acid (Ascorbic Acid 500 Mg Tablet) 500 mg PO DAILY@0900 ON LICENSE OF [facility] Last Admin: 04/20/24 08:17 Dose: 500 mg Documented By: KISHA Atorvastatin Calcium (Atorvastatin Calcium 10 Mg Tablet) 10 mg PO BEDTIME@2000 ZENY Bisacodyl (Bisacodyl 10 Mg Supp.Rect) 10 mg [place] DAILY PRN PRN Reason: Constipation Diltiazem HCl (Diltiazem Hcl Cd 120 Mg Cap.Er.Deg) 120 mg PO DAILY@0900 ON LICENSE OF [facility]; Protocol Last Admin: 04/20/24 08:17 Dose: 120 mg Documented By: KISHA Ferrous Sulfate (Ferrous Sulfate 324 Mg Tablet.Dr) 324 mg PO DAILY@0900 ON LICENSE OF [facility] Last Admin: 04/20/24 08:17 Dose: 324 mg Documented By: KISHA Glucose (Glucose Gel 15 Gm Gel..Gram.) 15 gm PO Q15M PRN; Protocol PRN Reason: per Hypoglycemia Standing Ord. Hydromorphone HCl (Hydromorphone Hcl 0.5 Mg/0.5 Ml Syringe) 0.25 mg IVPUSH Q3H PRN; Protocol PRN Reason: Pain, Severe (Pain Scale 7-10) Last Admin: 04/20/24 01:30 Dose: 0.25 mg Documented By: AMIE Piperacillin Sod/Tazobactam (Sod 3.375 gm/ Sodium Chloride) 50 mls @ 100 mls/hr IV Q6H ON LICENSE OF [facility] Last Infusion: 04/20/24 10:16 Dose: Infused Documented By: KISHA Dextrose (D10) 250 mls @ 750 mls/hr IV Q15M PRN; Protocol PRN Reason: per Hypoglycemia Standing Ord. Insulin Glargine (Insulin Glargine,Hum.Rec.Anlog 100 Unit/Ml 10 Ml Vial) 3 unit SUBCUT BEDTIME ON LICENSE OF [facility] Last Admin: 04/19/24 20:58 Dose: 3 unit Documented By: AMIE Insulin Human Lispro (Insulin Lispro 100 Unit/Ml 3 Ml Vial) 0 unit SUBCUT QIDACHS ON LICENSE OF [facility]; Protocol Last Admin: 04/20/24 08:25 Dose: 6 unit Documented By: KISHA Magnesium Hydroxide (Milk Of Magnesia 30 Ml Oral.Susp) 30 ml PO DAILY PRN PRN Reason: no BM in 3 days Melatonin (Melatonin 3 Mg Tablet) 6 mg PO BEDTIME PRN PRN Reason: Insomnia Metoprolol Tartrate (Metoprolol Tartrate 25 Mg Tablet) 25 mg PO BID ON LICENSE OF [facility]; Protocol Last Admin: 04/20/24 08:17 Dose: 25 mg Documented By: KISHA Ondansetron HCl (Ondansetron Hcl 4 Mg/2 Ml Vial) 4 mg IVPUSH QID PRN PRN Reason: Nausea Oxycodone HCl (Oxycodone Hcl Immed Release 5 Mg Tablet) 5 mg PO Q6H PRN PRN Reason: Pain, Moderate(Pain Scale 4-6) Potassium Chloride (Potassium Chloride Er 20 Meq Tab.Er.Prt) 40 meq PO BID ON LICENSE OF [facility] Last Admin: 04/20/24 08:18 Dose: 40 meq Documented By: KISHA Sodium Biphosphate/Sodium Phosphate (Sodium Phosphate,[place]-Dibasic 133 Ml Enema) 118 ml [place] DAILY PRN PRN Reason: Constipation Sodium Chloride (0.9 % Sodium Chloride Flush 3 Ml Syringe) 3 ml IVFLUSH QSHIFT ON LICENSE OF [facility] Last Admin: 04/20/24 08:18 Dose: Not Given Documented By: KISHA Non-Admin Reason: IV Running Labs 04/20/24 05:06 04/20/24 05:06 Labs: Laboratory Results - last 24 hr 04/19/24 04/19/24 04/20/24 11:44 20:07 05:06 MCV 91.2 91.0 MCH 30.7 30.6 MCHC 33.6 33.6 RDW 13.9 14.0 Plt Count 302 294 MPV 9.4 9.3 L Immature Gran % (Auto) 0.3 0.2 Neut % (Auto) 85.8 H 89.9 H Lymph % (Auto) 7.4 L 2.2 L [place] % (Auto) 5.0 6.6 Eos % (Auto) 1.0 0.7 Baso % (Auto) 0.5 0.4 Lymph # (Auto) 0.5 L 0.2 L [place] # (Auto) 0.3 0.5 Eos # (Auto) 0.1 0.1 Baso # (Auto) 0.0 0.0 Abs Immat Gran (auto) 0.02 0.02 Absolute Neuts (auto) 5.2 7.3 Absolute Nucleated RBC 0.000 0.000 Nucleated RBC % (auto) 0.0 0.0 ESR 53 H Anion Gap 14 13 Estim Creat Clear Calc 52.0 52.6 Estimated GFR > 60 > 60 POC Glucose 225 H Random Glucose 252 H 289 H Lactic Acid 1.4 Calcium 9.3 8.9 Magnesium 1.9 Total Bilirubin 0.3 1.3 H AST 37 H 381 H ALT 61 H 195 H Alkaline Phosphatase 1080 H 1551 H C-Reactive Protein 2.76 H Total Protein 6.1 L 5.8 L Albumin 3.2 L 3.0 L 04/20/24 04/20/24 07:24 11:18 MCV MCH MCHC RDW Plt Count MPV Immature Gran % (Auto) Neut % (Auto) Lymph % (Auto) [place] % (Auto) Eos % (Auto) Baso % (Auto) Lymph # (Auto) [place] # (Auto) Eos # (Auto) Baso # (Auto) Abs Immat Gran (auto) Absolute Neuts (auto) Absolute Nucleated RBC Nucleated RBC % (auto) ESR Anion Gap Estim Creat Clear Calc Estimated GFR POC Glucose 271 H 305 H Random Glucose Lactic Acid Calcium Magnesium Total Bilirubin AST ALT Alkaline Phosphatase C-Reactive Protein Total Protein Albumin Assessment and Plan (1) Transaminitis: Status: Acute (2) Acute appendicitis: Status: Acute Plan 74-year-old female with a PMH significant for paroxysmal AFib on Eliquis, insulin-dependent type 2 diabetes, HFpEF, CKD 2, PVD, metastatic pancreatic cancer with chemo currently on hold and s/p biliary stenting, iron deficiency anemia, and hx of osteomyelitis s/p right great toe amputation who is admitted to the hospital under general surgery services for acute appendicitis. Hospitalist consult for medical management Acute appendicitis No fevers, normal WBC count,on iv Zosyn, Being managed by General surgery DC IV fluids Follow labs Elevated LFTs with significantly elevated alk-phos Imaging studies showed intra and extrahepatic biliary dilatation , history of stent placement for obstructive jaundice, history of extrinsic duodenal compression consult Gastroenterology, follow LFTs, hold statins, hold Eliquis for further workup Insulin-dependent type 2 diabetes Continue sliding scale insulin, Lantus and monitor point of care blood sugars Paroxysmal AFib Hold Eliquis, resume per General surgery Continue diltiazem, and metoprolol Iron-deficiency anemia H&H stable, at baseline Continue iron supplementation Continue bowel regimen for constipation HLD hold statins due to elevated lfts Will continue to follow. Quality Stroke Does the patient have a stroke diagnosis?: No VTE Prior VTE?: Yes VTE Risk Level:: Surgical - high VTE Device Contraindication: N/A - Device Ordered VTE Drug Contraindication: N/A - Med Ordered
[2024-04-20 15:35] VITALS: BP 151/75; PULSE 90; RESP 18; TEMP 36.8; O2SAT 99
[2024-04-20 16:18] LABS: Glucose, Whole Blood 221 mg/dL (60-115)
[2024-04-20] MEDS: 0.9 % Sodium Chloride Flush 3 ML SYRINGE IVFLUSH ×2 (16:56→21:27)
[2024-04-20 19:43] VITALS: BP 142/84; PULSE 85; RESP 14; TEMP 36.3; O2SAT 98
[2024-04-20 19:55] LABS: Glucose, Whole Blood 192 mg/dL (60-115)
[2024-04-20] MEDS: Insulin Glargine,Hum.rec.anlog 100 UNIT/ML 10 ML VIAL 6 UNIT SUBCUT (20:12)
[2024-04-21 02:59] VITALS: BP 143/76; PULSE 78; RESP 14; TEMP 37.1; O2SAT 97
[2024-04-21] MEDS: Piperacillin Sodium/Tazobactam 3.375 GM in 0.9 % Sodium Chloride 50 ML IV ×4 (04:00→21:06)
[2024-04-21 06:16] LABS: Hematocrit 33.3 % (37.0-47.0); Mean Corpuscular Hemoglobin 30.5 pg (27.0-33.0); Mean Corpuscular Volume 92.2 fL (80.0-98.0); Mean Platelet Volume 9.7 fL (9.4-12.3); Platelet Count 294 X10*3/uL (160-400); Red Blood Count 3.61 X10*6/uL (4.20-5.50); White Blood Count 5.1 X10*3/uL (4.8-10.8)
[2024-04-21 06:28] LABS: Alanine Aminotransferase 143 U/L (0-31); Albumin Level 2.8 g/dL (3.5-5.0); Alkaline Phosphatase 1070 U/L (39-117); Anion Gap 13 (12-20); Aspartate Amino Transferase 118 U/L (5-31); Bilirubin Direct 0.3 mg/dL (0.0-0.5); Bilirubin Total 0.6 mg/dL (0.0-1.0); Blood Urea Nitrogen 12 mg/dL (9-16); Carbon Dioxide 23 mmol/L (22-29); Chloride 104 mmol/L (96-108); Creatinine Clr Calc Pharmacy 52.6; Estimated Glomerular Filt Rate > 60; Glucose Random 182 mg/dL (60-115); Potassium 4.4 mmol/L (3.3-5.1); Sodium 136 mmol/L (135-145); Total Protein 5.6 g/dL (6.5-8.0)
--- NOTE | 2024-04-21 06:45 | P.CNGI_ITS ---
History of Present Illness Data of Consult Service Date: 04/21/24 Primary Care Provider: Danyell Glass MD HPI Reason for consult: nausea 74-year-old female with hx of paroxysmal AFib on Eliquis, insulin-dependent type 2 diabetes, HFpEF, CKD 2, PVD, metastatic pancreatic cancer with chemo currently on hold s/p biliary stenting, iron deficiency anemia, and hx of osteomyelitis s/p right great toe amputation who I am seeing for assessment for pancreatic cancer Patient had imaging 04/18 with suspected appendicitis with fecolith, but this was an incidental finding as this was ordered for eval of left pelvic rami and acetabulum fracture. She did admit to 1 d hx of non bloody emesis and nausea with RLQ tenderness on palpation but no focal pain, no fevers, chills etc. She endorses nml stool, no blood or melena noted. Denies chest pain/pressure, palpitations. No fever, chills. Denies shortness or breath or difficulty breathing. Chronic nonproductive cough at baseline. Labs did demonstrate worsening of her LFT but she has been off chemo for several weeks due to her other health issues including bowel perforation from last ERCP here for biliary stent exchange and osteomyletitis CT did show duodenal stent, biliary stent and worsening of panc head mass Patient seen and evaluated in her room where she is resting comfortably in bed. Patient reports currently at rest has neither pelvic nor abdominal pain, though does have some pain with movement. Currently no nausea and vomiting and she ate food without issue She has apptm upcoming for panc stent and duodenal stent removal at [facility] Past Medical History Medical History Anemia PAF (paroxysmal atrial fibrillation) Port-A-Cath in place Osteomyelitis of great toe of right foot Pancreatic cancer Type 2 diabetes mellitus Pancreatic mass CHF (congestive heart failure) CKD (chronic kidney disease) Afib Family History Family History Father Prostate cancer Sister Breast cancer Surgical History Surgical History Hx of surgical procedure (~12/21/23) H/O foot surgery H/O dilation and curettage H/O eye surgery [place] teeth removed History of cholecystectomy Social History Social History Household Members: Family Household Members Other:: lives on 1st floor. Son lives on 2nd floor Housing: House Housing Other:: two family house Do you presently have visiting nurse or other home services: Yes (charles gallegos nurse for woundcare on foot) Alcohol intake: former Patient Tobacco Use Status: Never used Tobacco e-Cigarette/Vaping Use: Never Used Second Hand Smoke Exposure: No Advance Directives Date on File: 10/01/23 service: No Current occupational status: retired [employer] Allergies Allergy/AdvReac Type Severity Reaction Status Date / Time doxycycline Allergy Rash Verified 04/19/24 10:32 Active Medications: Current Medications Acetaminophen (Acetaminophen 325 Mg Tablet) 650 mg PO Q6H PRN PRN Reason: Pain, Mild (Pain Scale 1-3), fever or headache Ascorbic Acid (Ascorbic Acid 500 Mg Tablet) 500 mg PO DAILY@0900 [facility] Last Admin: 04/20/24 08:17 Dose: 500 mg Bisacodyl (Bisacodyl 10 Mg Supp.Rect) 10 mg [place] DAILY PRN PRN Reason: Constipation Diltiazem HCl (Diltiazem Hcl Cd 120 Mg Cap.Er.Deg) 120 mg PO DAILY@0900 [facility]; Protocol Last Admin: 04/20/24 08:17 Dose: 120 mg Ferrous Sulfate (Ferrous Sulfate 324 Mg Tablet.Dr) 324 mg PO DAILY@0900 [facility] Last Admin: 04/20/24 08:17 Dose: 324 mg Glucose (Glucose Gel 15 Gm Gel..Gram.) 15 gm PO Q15M PRN; Protocol PRN Reason: per Hypoglycemia Standing Ord. Hydromorphone HCl (Hydromorphone Hcl 0.5 Mg/0.5 Ml Syringe) 0.25 mg IVPUSH Q3H PRN; Protocol PRN Reason: Pain, Severe (Pain Scale 7-10) Last Admin: 04/20/24 01:30 Dose: 0.25 mg Piperacillin Sod/Tazobactam (Sod 3.375 gm/ Sodium Chloride) 50 mls @ 100 mls/hr IV Q6H [facility] Last Infusion: 04/21/24 04:32 Dose: Infused Dextrose (D10) 250 mls @ 750 mls/hr IV Q15M PRN; Protocol PRN Reason: per Hypoglycemia Standing Ord. Insulin Glargine (Insulin Glargine,Hum.Rec.Anlog 100 Unit/Ml 10 Ml Vial) 6 unit SUBCUT BEDTIME [facility] Last Admin: 04/20/24 20:12 Dose: 6 unit Insulin Human Lispro (Insulin Lispro 100 Unit/Ml 3 Ml Vial) 0 unit SUBCUT QIDACHS [facility]; Protocol Last Admin: 04/20/24 20:13 Dose: 2 unit Magnesium Hydroxide (Milk Of Magnesia 30 Ml Oral.Susp) 30 ml PO DAILY PRN PRN Reason: no BM in 3 days Melatonin (Melatonin 3 Mg Tablet) 6 mg PO BEDTIME PRN PRN Reason: Insomnia Metoprolol Tartrate (Metoprolol Tartrate 25 Mg Tablet) 25 mg PO BID [facility]; Protocol Last Admin: 04/20/24 20:11 Dose: 25 mg Ondansetron HCl (Ondansetron Hcl 4 Mg/2 Ml Vial) 4 mg IVPUSH QID PRN PRN Reason: Nausea Oxycodone HCl (Oxycodone Hcl Immed Release 5 Mg Tablet) 5 mg PO Q6H PRN PRN Reason: Pain, Moderate(Pain Scale 4-6) Potassium Chloride (Potassium Chloride Er 20 Meq Tab.Er.Prt) 40 meq PO BID [facility] Last Admin: 04/20/24 20:11 Dose: 40 meq Sodium Biphosphate/Sodium Phosphate (Sodium Phosphate,[place]-Dibasic 133 Ml Enema) 118 ml [place] DAILY PRN PRN Reason: Constipation Sodium Chloride (0.9 % Sodium Chloride Flush 3 Ml Syringe) 3 ml IVFLUSH QSHIFT [facility] Last Admin: 04/20/24 21:27 Dose: 3 ml Home Medications ?Medication ?Instructions ?Recorded ?Confirmed ?Last Taken ?Type apixaban 5 mg tablet (Eliquis) 5 mg PO BID 09/25/23 04/19/24 01/14/24 History atorvastatin 10 mg tablet 10 mg PO BEDTIME@199909/25/23 04/19/24 12/16/23 History insulin glargine 100 unit/mL 6 unit subcut BEDTIME 12/17/23 04/19/24 12/16/23 History subcutaneous solution (Lantus U-100 Insulin) diltiazem HCl 120 mg 120 mg PO DAILY@0900 01/03/24 04/19/24 01/17/24 History capsule,extended release 24 hr, controlled (DILT-XR) ferrous sulfate 325 mg (65 mg 325 mg PO DAILY@0900 01/03/24 04/19/24 Unknown History iron) tablet acetaminophen 500 mg tablet 1,000 mg PO TID 04/19/24 04/19/24 Unknown History ascorbic acid (vitamin C) 500 mg 500 mg PO DAILY@0900 04/19/24 04/19/24 Unknown History tablet bisacodyl 10 mg rectal suppository 10 mg [place] DAILY PRN Constipation 04/19/24 04/19/24 Unknown History insulin lispro 100 unit/mL 1 sliding scale dose subcut TIDAC 04/19/24 04/19/24 Unknown History subcutaneous pen (Humalog KwikPen (U-100) Insulin) magnesium hydroxide 400 mg/5 mL 30 ml PO DAILY PRN no BM in 3 days 04/19/24 04/19/24 Unknown History oral suspension (Milk of Magnesia) metoprolol tartrate 25 mg tablet 25 mg PO BID 04/19/24 04/19/24 Unknown History potassium chloride 10 mEq 40 meq PO BID 04/19/24 04/19/24 Unknown History capsule,extended release sodium phosphates 19 gram-7 118 ml [place] DAILY PRN Constipation 04/19/24 04/19/24 Unknown History gram/118 mL enema (Fleet Enema) tramadol 50 mg tablet 50 mg PO Q6H PRN Pain 04/19/24 04/19/24 Unknown History Physical Exam 2 Vital Signs: Vital Signs: Last Vital Signs Temp 98.7 F 04/21/24 02:59 Pulse 78 04/21/24 02:59 Resp 14 04/21/24 02:59 BP 143/76 H 04/21/24 02:59 Pulse Ox 97 04/21/24 02:59 O2 Del Method Room Air 04/21/24 02:59 BMI result Body Mass Index 21.8 EXAM: GENERAL: The patient is frail VITAL SIGNS:see workflow HEENT: Nonicteric sclerae, PERRLA, EOMI. Oropharynx clear. Moist mucous membranes. Conjunctivae appear well perfused. No thyroid mass. CHEST: Chest wall is nontender. HEART: Regular rate and rhythm without murmurs. LUNGS: Clear to auscultation bilaterally. ABDOMEN: Soft, positive bowel sounds, mildly tender RLQ, no organomegaly.no flank tenderness SKIN: No rash, no excessive bruising, petechiae, or purpura. NEUROLOGIC: Cranial nerves II-XII intact without motor/sensory deficit. Psych: normal affect Results Labs 04/21/24 05:32 04/21/24 05:32 Labs: Short CBC 04/21/24 Range/Units 05:32 WBC 5.1 (4.8-10.8) X10*3/uL Hgb 11.0 L (12.0-16.0) g/dl Hct 33.3 L (37.0-47.0) % Plt Count 294 (160-400) X10*3/uL BMP 04/21/24 05:32 Sodium 136 Potassium 4.4 Chloride 104 Carbon Dioxide 23 BUN 12 Creatinine 0.83 Calcium 9.0 Liver Function 04/21/24 Range/Units 05:32 Total Bilirubin 0.6 (0.0-1.0) mg/dL Direct Bilirubin 0.3 (0.0-0.5) mg/dL AST 118 H (5-31) U/L ALT 143 H (0-31) U/L Alkaline Phosphatase 1070 H (39-117) U/L Albumin 2.8 L (3.5-5.0) g/dL Microbiology Microbiology Results: Microbiology 04/19/24 12:34 Blood - Venous Blood Culture - Preliminary No growth after 24 hours. 04/19/24 11:44 Blood - Venous Blood Culture - Preliminary No growth after 24 hours. Assessment and Plan (1) Appendicitis: Qualifiers: Appendicitis type: acute appendicitis Acute appendicitis type: other Q ualified Code(s): K35.890 - Other acute appendicitis without perforation or gangrene Status: Acute (2) Pancreatic cancer: Qualifiers: Pancreatic malignancy location: head of pancreas Qualified Code(s): C 25.0 - Malignant neoplasm of head of pancreas Status: Acute Plan 1/ Subacute appendicitis, seems better with ABX 2/ Panc mass, worse but no treatment for several weeks now PLAN: 1/ Would recommend she keep her apptm with [facility], she does not need emergent stent exchange right now, but if she did then BOOGIE chaney be consulted Procedures Date of Service Date of Service: 04/21/24
[2024-04-21 07:37] LABS: Glucose, Whole Blood 173 mg/dL (60-115)
[2024-04-21 07:59] VITALS: BP 141/83; PULSE 85; RESP 12; TEMP 36.8; O2SAT 97
[2024-04-21] MEDS: Insulin Lispro 100 UNIT/ML 3 ML VIAL SUBCUT ×4 (08:04→21:02)
[2024-04-21] MEDS: Potassium Chloride ER 20 MEQ TAB.ER.PRT 40 MEQ PO ×2 (08:05→21:02)
[2024-04-21] MEDS: Metoprolol Tartrate 25 MG TABLET PO ×2 (08:06→21:02)
[2024-04-21] MEDS: Ascorbic Acid 500 MG TABLET PO (08:06)
[2024-04-21] MEDS: Ferrous Sulfate 324 MG TABLET.DR PO (08:06)
[2024-04-21] MEDS: dilTIAZem HCL CD 120 MG CAP.ER.DEG PO (08:06)
[2024-04-21] MEDS: 0.9 % Sodium Chloride Flush 3 ML SYRINGE IVFLUSH ×2 (08:08→15:43)
--- NOTE | 2024-04-21 09:46 | P.PNIM_ITS ---
Subjective Subjective Date of Service: 04/21/24 Interval History: Being followed for elevated LFTs Feeling better offers no complaints of abdominal pain, no nausea, no vomiting, no fevers, no chills, no acute events overnight. Review of Systems All other system reviewed and are negative Physical Exam 2 Vital Signs: Vital Signs: Last Vital Signs Temp 98.2 F 04/21/24 07:59 Pulse 85 04/21/24 07:59 Resp 12 04/21/24 07:59 BP 141/83 H 04/21/24 07:59 Pulse Ox 97 04/21/24 07:59 O2 Del Method Room Air 04/21/24 07:59 BMI result Body Mass Index 21.8 Const: Other: General awake alert x3, in no acute distress. Neck no JVD. CVS regular rate rhythm, Respiratory lungs clear to auscultation, no respiratory distress, no wheeze, no rhonchi. Gastrointestinal abdomen soft, non tender, bowel sounds audible. No rebound Extremities no edema. Neuro non focal Skin no rash psyche appropriate affect Objective Data Active Medications Acetaminophen (Acetaminophen 325 Mg Tablet) 650 mg PO Q6H PRN PRN Reason: Pain, Mild (Pain Scale 1-3), fever or headache Ascorbic Acid (Ascorbic Acid 500 Mg Tablet) 500 mg PO DAILY@0900 ON LICENSE OF [facility] Last Admin: 04/21/24 08:06 Dose: 500 mg Documented By: SONJA Bisacodyl (Bisacodyl 10 Mg Supp.Rect) 10 mg [place] DAILY PRN PRN Reason: Constipation Diltiazem HCl (Diltiazem Hcl Cd 120 Mg Cap.Er.Deg) 120 mg PO DAILY@0900 ON LICENSE OF [facility]; Protocol Last Admin: 04/21/24 08:06 Dose: 120 mg Documented By: SONJA Ferrous Sulfate (Ferrous Sulfate 324 Mg Tablet.Dr) 324 mg PO DAILY@0900 ON LICENSE OF [facility] Last Admin: 04/21/24 08:06 Dose: 324 mg Documented By: SONJA Glucose (Glucose Gel 15 Gm Gel..Gram.) 15 gm PO Q15M PRN; Protocol PRN Reason: per Hypoglycemia Standing Ord. Hydromorphone HCl (Hydromorphone Hcl 0.5 Mg/0.5 Ml Syringe) 0.25 mg IVPUSH Q3H PRN; Protocol PRN Reason: Pain, Severe (Pain Scale 7-10) Last Admin: 04/20/24 01:30 Dose: 0.25 mg Documented By: AMIE Piperacillin Sod/Tazobactam (Sod 3.375 gm/ Sodium Chloride) 50 mls @ 100 mls/hr IV Q6H ON LICENSE OF [facility] Last Infusion: 04/21/24 04:32 Dose: Infused Documented By: DWAINE Dextrose (D10) 250 mls @ 750 mls/hr IV Q15M PRN; Protocol PRN Reason: per Hypoglycemia Standing Ord. Insulin Glargine (Insulin Glargine,Hum.Rec.Anlog 100 Unit/Ml 10 Ml Vial) 6 unit SUBCUT BEDTIME ON LICENSE OF [facility] Last Admin: 04/20/24 20:12 Dose: 6 unit Documented By: DWAINE Insulin Human Lispro (Insulin Lispro 100 Unit/Ml 3 Ml Vial) 0 unit SUBCUT QIDACHS ON LICENSE OF [facility]; Protocol Last Admin: 04/21/24 08:04 Dose: 2 unit Documented By: SONJA Magnesium Hydroxide (Milk Of Magnesia 30 Ml Oral.Susp) 30 ml PO DAILY PRN PRN Reason: no BM in 3 days Melatonin (Melatonin 3 Mg Tablet) 6 mg PO BEDTIME PRN PRN Reason: Insomnia Metoprolol Tartrate (Metoprolol Tartrate 25 Mg Tablet) 25 mg PO BID ON [facility] OF [facility]; Protocol Last Admin: 04/21/24 08:06 Dose: 25 mg Documented By: SONJA Ondansetron HCl (Ondansetron Hcl 4 Mg/2 Ml Vial) 4 mg IVPUSH QID PRN PRN Reason: Nausea Oxycodone HCl (Oxycodone Hcl Immed Release 5 Mg Tablet) 5 mg PO Q6H PRN PRN Reason: Pain, Moderate(Pain Scale 4-6) Potassium Chloride (Potassium Chloride Er 20 Meq Tab.Er.Prt) 40 meq PO BID ON LICENSE OF [facility] Last Admin: 04/21/24 08:05 Dose: 40 meq Documented By: SONJA Sodium Biphosphate/Sodium Phosphate (Sodium Phosphate,[place]-Dibasic 133 Ml Enema) 118 ml [place] DAILY PRN PRN Reason: Constipation Sodium Chloride (0.9 % Sodium Chloride Flush 3 Ml Syringe) 3 ml IVFLUSH QSHIFT ON LICENSE OF [facility] Last Admin: 04/21/24 08:08 Dose: 3 ml Documented By: SONJA Labs 04/21/24 05:32 04/21/24 05:32 Labs: Laboratory Results - last 24 hr 04/20/24 04/20/24 04/20/24 11:18 16:13 19:51 MCV MCH MCHC RDW Plt Count MPV Absolute Nucleated RBC Nucleated RBC % (auto) Anion Gap Estim Creat Clear Calc Estimated GFR POC Glucose 305 H 221 H 192 H Random Glucose Calcium Total Bilirubin Direct Bilirubin AST ALT Alkaline Phosphatase Total Protein Albumin 04/21/24 04/21/24 05:32 07:22 MCV 92.2 MCH 30.5 MCHC 33.0 RDW 14.0 Plt Count 294 MPV 9.7 Absolute Nucleated RBC 0.000 Nucleated RBC % (auto) 0.0 Anion Gap 13 Estim Creat Clear Calc 52.6 Estimated GFR > 60 POC Glucose 173 H Random Glucose 182 H Calcium 9.0 Total Bilirubin 0.6 Direct Bilirubin 0.3 AST 118 H ALT 143 H Alkaline Phosphatase 1070 H Total Protein 5.6 L Albumin 2.8 L Microbiology Microbiology Results: Microbiology 04/19/24 12:34 Blood Culture - Preliminary Blood - Venous No growth after 24 hours. 04/19/24 11:44 Blood Culture - Preliminary Blood - Venous No growth after 24 hours. Assessment and Plan (1) Appendicitis: Status: Acute (2) Transaminitis: Status: Acute Plan 74-year-old female with a PMH significant for paroxysmal AFib on Eliquis, insulin-dependent type 2 diabetes, HFpEF, CKD 2, PVD, metastatic pancreatic cancer with chemo currently on hold and s/p biliary stenting, iron deficiency anemia, and hx of osteomyelitis s/p right great toe amputation who is admitted to the hospital under general surgery services for acute appendicitis. Hospitalist consult for medical management Acute appendicitis No fevers, normal WBC count,on iv Zosyn, Being managed by General surgery DC IV fluids Follow labs Tranaminitis Elevated LFTs with significantly elevated alk-phos Imaging studies showed intra and extrahepatic biliary dilatation , history of stent placement for obstructive jaundice, history of extrinsic duodenal compression Repeat LFTs trending down Case discussed with Dr. Hopson he recommend outpatient follow-up at [facility] Gastroenterology as previously planned Hold statins Insulin-dependent type 2 diabetes Continue sliding scale insulin, Lantus and monitor point of care blood sugars Paroxysmal AFib Eliquis on hold, resume per General surgery Continue diltiazem, and metoprolol Iron-deficiency anemia H&H stable, at baseline Continue iron supplementation Continue bowel regimen for constipation HLD hold statins due to elevated lfts DVT prophylaxis with compression stockings Will sign off , please reconsult for any recurrent medical issues. Quality Stroke Does the patient have a stroke diagnosis?: No VTE Prior VTE?: Yes VTE Risk Level:: Surgical - high VTE Device Contraindication: N/A - Device Ordered VTE Drug Contraindication: N/A - Med Ordered
[2024-04-21 11:25] LABS: Glucose, Whole Blood 308 mg/dL (60-115)
--- NOTE | 2024-04-21 11:56 | HO.WOUND ---
Wound Consult: Initial 74yr old?female admitted to [facility] [place] on 04/19/24 - See progress notes and H&P for detailed history.? Wound consult placed for coccyx / sacral wound Present on Admission.? Patient agreeable to assessment and photo documentation.? Sacrum Etiology: Unstageable Pressure Injury ?Present on Admission Wound Bed: adherent yellow slough with pink moist edges Drainage / Odor: yellow drainage noted - no odor noted Edges: ? rolled and macerated Ronda wound: pink blanchable tissue ?hyperpigmentation noted - No Induration, Fluctuance or Warmth noted Pain: report pain and tenderness Goals of Treatment: ? Triad and Foam dressing to protect from friction and moisture and allow for autolytic debridement Recommendations: 1. Turn and Reposition every 2 hours and as needed for patient comfort.? Use pillows or wedges to support off loading positions. 2. Off Load all bony prominences with use of pillows and heel boots if needed.? Apply Preventative foams where needed. ? 3. Monitor for incontinence and moisture control, use barrier creams when needed for prevention and treatment. 4. Provide adequate and supplemental nutrition.? 5. Order low air loss mattress. 6. When applicable maintain blood glucose levels per Providers order. 7. Sacrum - Off Load Pressure? - Cleanse with PH balance spray or wipes, pat dry. ?Apply thin layer of Triad to wound bed. Do not remove all of paste between applications as this may cause further skin damage.? Cover with foam dressing to aid in off loading and protection from friction. Change every 5 days and PRN. Waffle cushion when up to chair and frequent repositions to off load pressure. Recommend continued follow up out patient Wound Clinic at [address] [place] [phone] and to call for an appointment at time of discharge. [phone].? Re-consult wound care Nurse for wound deterioration or wound changes.
--- NOTE | 2024-04-21 12:16 | P.PNGS_ITS ---
Subjective Subjective Date of Service: 04/21/24 Interval history: Only complaint is back pain. Tolerated solid diet without nausea, vomiting, abd pain. Physical Exam 2 Vital Signs: Vital Signs: Last Vital Signs Temp 98.2 F 04/21/24 07:59 Pulse 85 04/21/24 07:59 Resp 12 04/21/24 07:59 BP 141/83 H 04/21/24 07:59 Pulse Ox 97 04/21/24 07:59 O2 Del Method Room Air 04/21/24 07:59 BMI result Body Mass Index 21.8 Const: General: comfortable, no acute distress and alert GI: Inspection: No distended Palpation (GI): Soft to palpation and Tenderness to palpation present (GI) in the RLQ (very mild to deep palpation); with no rebound tenderness and Rovsing's sign negative Skin: General skin exam: no rashes or lesions noted Objective Data Active Medications Acetaminophen (Acetaminophen 325 Mg Tablet) 650 mg PO Q6H PRN PRN Reason: Pain, Mild (Pain Scale 1-3), fever or headache Ascorbic Acid (Ascorbic Acid 500 Mg Tablet) 500 mg PO DAILY@0900 [facility] Last Admin: 04/21/24 08:06 Dose: 500 mg Documented By: SONJA Bisacodyl (Bisacodyl 10 Mg Supp.Rect) 10 mg [place] DAILY PRN PRN Reason: Constipation Diltiazem HCl (Diltiazem Hcl Cd 120 Mg Cap.Er.Deg) 120 mg PO DAILY@0900 [facility]; Protocol Last Admin: 04/21/24 08:06 Dose: 120 mg Documented By: SONJA Ferrous Sulfate (Ferrous Sulfate 324 Mg Tablet.Dr) 324 mg PO DAILY@0900 [facility] Last Admin: 04/21/24 08:06 Dose: 324 mg Documented By: SONJA Glucose (Glucose Gel 15 Gm Gel..Gram.) 15 gm PO Q15M PRN; Protocol PRN Reason: per Hypoglycemia Standing Ord. Hydromorphone HCl (Hydromorphone Hcl 0.5 Mg/0.5 Ml Syringe) 0.25 mg IVPUSH Q3H PRN; Protocol PRN Reason: Pain, Severe (Pain Scale 7-10) Last Admin: 04/20/24 01:30 Dose: 0.25 mg Documented By: AMIE Piperacillin Sod/Tazobactam (Sod 3.375 gm/ Sodium Chloride) 50 mls @ 100 mls/hr IV Q6H [facility] Last Infusion: 04/21/24 10:53 Dose: Infused Documented By: SONJA Dextrose (D10) 250 mls @ 750 mls/hr IV Q15M PRN; Protocol PRN Reason: per Hypoglycemia Standing Ord. Insulin Glargine (Insulin Glargine,Hum.Rec.Anlog 100 Unit/Ml 10 Ml Vial) 6 unit SUBCUT BEDTIME [facility] Last Admin: 04/20/24 20:12 Dose: 6 unit Documented By: DWAINE Insulin Human Lispro (Insulin Lispro 100 Unit/Ml 3 Ml Vial) 0 unit SUBCUT QIDACHS [facility]; Protocol Last Admin: 04/21/24 11:49 Dose: 10 unit Documented By: SONJA Magnesium Hydroxide (Milk Of Magnesia 30 Ml Oral.Susp) 30 ml PO DAILY PRN PRN Reason: no BM in 3 days Melatonin (Melatonin 3 Mg Tablet) 6 mg PO BEDTIME PRN PRN Reason: Insomnia Metoprolol Tartrate (Metoprolol Tartrate 25 Mg Tablet) 25 mg PO BID [facility]; Protocol Last Admin: 04/21/24 08:06 Dose: 25 mg Documented By: SONJA Ondansetron HCl (Ondansetron Hcl 4 Mg/2 Ml Vial) 4 mg IVPUSH QID PRN PRN Reason: Nausea Oxycodone HCl (Oxycodone Hcl Immed Release 5 Mg Tablet) 5 mg PO Q6H PRN PRN Reason: Pain, Moderate(Pain Scale 4-6) Potassium Chloride (Potassium Chloride Er 20 Meq Tab.Er.Prt) 40 meq PO BID [facility] Last Admin: 04/21/24 08:05 Dose: 40 meq Documented By: SONJA Sodium Biphosphate/Sodium Phosphate (Sodium Phosphate,[place]-Dibasic 133 Ml Enema) 118 ml [place] DAILY PRN PRN Reason: Constipation Sodium Chloride (0.9 % Sodium Chloride Flush 3 Ml Syringe) 3 ml IVFLUSH QSHIFT [facility] Last Admin: 04/21/24 08:08 Dose: 3 ml Documented By: SONJA Labs 04/21/24 05:32 04/21/24 05:32 Labs: Laboratory Results - last 24 hr 04/20/24 04/20/24 04/21/24 16:13 19:51 05:32 MCV 92.2 MCH 30.5 MCHC 33.0 RDW 14.0 Plt Count 294 MPV 9.7 Absolute Nucleated RBC 0.000 Nucleated RBC % (auto) 0.0 Anion Gap 13 Estim Creat Clear Calc 52.6 Estimated GFR > 60 POC Glucose 221 H 192 H Random Glucose 182 H Calcium 9.0 Total Bilirubin 0.6 Direct Bilirubin 0.3 AST 118 H ALT 143 H Alkaline Phosphatase 1070 H Total Protein 5.6 L Albumin 2.8 L 04/21/24 04/21/24 07:22 11:14 MCV MCH MCHC RDW Plt Count MPV Absolute Nucleated RBC Nucleated RBC % (auto) Anion Gap Estim Creat Clear Calc Estimated GFR POC Glucose 173 H 308 H Random Glucose Calcium Total Bilirubin Direct Bilirubin AST ALT Alkaline Phosphatase Total Protein Albumin Microbiology Microbiology Results: Microbiology 04/19/24 12:34 Blood Culture - Preliminary Blood - Venous No growth after 24 hours. 04/19/24 11:44 Blood Culture - Preliminary Blood - Venous No growth after 24 hours. Procedures Date of Service Date of Service: 04/21/24 Progress Note: A&P Assessment and plan (1) Appendicitis: Status: Acute (2) Pancreatic mass: Status: Acute Plan Resolution of nausea/vomiting symptoms from admission and tolerating solid diet. She does report mild pain in RLQ following palpation. Cont abx, likely dc to home later today or tomorrow on PO course with F/u in office in a week. Seen by GI who do not recommend any intervention with stent currently. Patient comfortable with plan. Time Spent With Patient Time: Total time managing care of this patient today ____ minutes. Quality Stroke Does the patient have a stroke diagnosis?: No VTE Prior VTE?: Yes VTE Risk Level:: Surgical - high VTE Device Contraindication: N/A - Device Ordered VTE Drug Contraindication: N/A - Med Ordered
[2024-04-21 13:53] VITALS: BMI 21.8
--- NOTE | 2024-04-21 14:05 | MHC.CLN ---
NUTRITION CONSULT FOR BETHEL SCORE. LIBERALIZED DIET FROM DM 2000 TO REGULAR TO PROMOTE PO INTAKE. ADDING ENSURE MAX PROTEIN TO PROMOTE WOUND HEALING. SUPPLEMENT PROVIDES 300 KCALS, 60 G PROTEIN. DISCUSSED DIET CHANGE WITH PATIENT. AWARE OF DIABETIC RESTRICTIONS AND ABLE TO MAKE APPROPRIATE FOOD CHOICES. INCREASED NUTRITION NEEDS DUE TO PRESSURE INJURY, STAGE II TO COCCYX. QUALIFIES MODERATELY MALNOURISHED IN THE CONTEXT OF CHRONIC ILLNESS. FOLLOW FOR PO INTAKE AND SKIN INTEGRITY. SEE CLINICAL NUTRITION ASSESSMENT 04/21/24.
[2024-04-21 15:37] VITALS: BP 150/72; PULSE 68; RESP 18; TEMP 36.6; O2SAT 98
[2024-04-21 16:13] LABS: Glucose, Whole Blood 281 mg/dL (60-115)
[2024-04-21 19:42] VITALS: BP 133/71; PULSE 77; RESP 18; TEMP 36; O2SAT 97
[2024-04-21 20:08] LABS: Glucose, Whole Blood 291 mg/dL (60-115)
[2024-04-21] MEDS: Insulin Glargine,Hum.rec.anlog 100 UNIT/ML 10 ML VIAL 6 UNIT SUBCUT (21:03)
[2024-04-21] MEDS: Acetaminophen 325 MG TABLET 650 MG PO (21:05)
[2024-04-22 03:36] VITALS: BP 143/67; PULSE 82; RESP 18; TEMP 36; O2SAT 97
[2024-04-22] MEDS: Piperacillin Sodium/Tazobactam 3.375 GM in 0.9 % Sodium Chloride 50 ML IV ×2 (04:59→09:48)
--- NOTE | 2024-04-22 07:29 | P.PNGS_ITS ---
Subjective Subjective Date of Service: 04/22/24 Interval history: Patient feels improved today. Denies RLQ abdominal pain. Tolerated a regular diet without nausea or vomiting. Physical Exam 2 Vital Signs: Vital Signs: Last Vital Signs Temp 96.8 F 04/22/24 03:36 Pulse 82 04/22/24 03:36 Resp 18 04/22/24 03:36 BP 143/67 H 04/22/24 03:36 Pulse Ox 97 04/22/24 03:36 O2 Del Method Room Air 04/22/24 03:36 BMI result Body Mass Index 21.8 Const: General: no acute distress Nutritional Appearance: well nourished Orientation/consciousness: patient oriented x3 Resp: Effort & Inspection: normal respiratory effort, no audible wheezes, no cough and no respiratory distress GI: Other: soft, non-distended, tender in the LLQ, no rebound or guarding. Skin: Other: warm, dry Neuro: General: patient oriented x3 Objective Data Active Medications Acetaminophen (Acetaminophen 325 Mg Tablet) 650 mg PO Q6H PRN PRN Reason: Pain, Mild (Pain Scale 1-3), fever or headache Last Admin: 04/21/24 21:05 Dose: 650 mg Documented By: DWAINE Ascorbic Acid (Ascorbic Acid 500 Mg Tablet) 500 mg PO DAILY@0900 [facility] Last Admin: 04/21/24 08:06 Dose: 500 mg Documented By: SONJA Bisacodyl (Bisacodyl 10 Mg Supp.Rect) 10 mg [place] DAILY PRN PRN Reason: Constipation Diltiazem HCl (Diltiazem Hcl Cd 120 Mg Cap.Er.Deg) 120 mg PO DAILY@0900 [facility]; Protocol Last Admin: 04/21/24 08:06 Dose: 120 mg Documented By: SONJA Ferrous Sulfate (Ferrous Sulfate 324 Mg Tablet.Dr) 324 mg PO DAILY@0900 [facility] Last Admin: 04/21/24 08:06 Dose: 324 mg Documented By: SONJA Glucose (Glucose Gel 15 Gm Gel..Gram.) 15 gm PO Q15M PRN; Protocol PRN Reason: per Hypoglycemia Standing Ord. Hydromorphone HCl (Hydromorphone Hcl 0.5 Mg/0.5 Ml Syringe) 0.25 mg IVPUSH Q3H PRN; Protocol PRN Reason: Pain, Severe (Pain Scale 7-10) Last Admin: 04/20/24 01:30 Dose: 0.25 mg Documented By: AMIE Piperacillin Sod/Tazobactam (Sod 3.375 gm/ Sodium Chloride) 50 mls @ 100 mls/hr IV Q6H [facility] Last Infusion: 04/22/24 07:11 Dose: Infused Documented By: MARINA Dextrose (D10) 250 mls @ 750 mls/hr IV Q15M PRN; Protocol PRN Reason: per Hypoglycemia Standing Ord. Insulin Glargine (Insulin Glargine,Hum.Rec.Anlog 100 Unit/Ml 10 Ml Vial) 6 unit SUBCUT BEDTIME [facility] Last Admin: 04/21/24 21:03 Dose: 6 unit Documented By: DWAINE Insulin Human Lispro (Insulin Lispro 100 Unit/Ml 3 Ml Vial) 0 unit SUBCUT QIDACHS [facility]; Protocol Last Admin: 04/21/24 21:02 Dose: 8 unit Documented By: DWAINE Magnesium Hydroxide (Milk Of Magnesia 30 Ml Oral.Susp) 30 ml PO DAILY PRN PRN Reason: no BM in 3 days Melatonin (Melatonin 3 Mg Tablet) 6 mg PO BEDTIME PRN PRN Reason: Insomnia Metoprolol Tartrate (Metoprolol Tartrate 25 Mg Tablet) 25 mg PO BID [facility]; Protocol Last Admin: 04/21/24 21:02 Dose: 25 mg Documented By: DWAINE Ondansetron HCl (Ondansetron Hcl 4 Mg/2 Ml Vial) 4 mg IVPUSH QID PRN PRN Reason: Nausea Oxycodone HCl (Oxycodone Hcl Immed Release 5 Mg Tablet) 5 mg PO Q6H PRN PRN Reason: Pain, Moderate(Pain Scale 4-6) Potassium Chloride (Potassium Chloride Er 20 Meq Tab.Er.Prt) 40 meq PO BID [facility] Last Admin: 04/21/24 21:02 Dose: 40 meq Documented By: DWAINE Sodium Biphosphate/Sodium Phosphate (Sodium Phosphate,[place]-Dibasic 133 Ml Enema) 118 ml [place] DAILY PRN PRN Reason: Constipation Sodium Chloride (0.9 % Sodium Chloride Flush 3 Ml Syringe) 3 ml IVFLUSH QSHIFT [facility] Last Admin: 04/22/24 00:12 Dose: Not Given Documented By: MARINA Non-Admin Reason: No Access Labs 04/21/24 05:32 04/21/24 05:32 Labs: Laboratory Results - last 24 hr 04/21/24 04/21/24 04/21/24 07:22 11:14 16:05 POC Glucose 173 H 308 H 281 H 04/21/24 19:41 POC Glucose 291 H Microbiology Microbiology Results: Microbiology 04/19/24 12:34 Blood Culture - Preliminary Blood - Venous No growth after 48 hours. 04/19/24 11:44 Blood Culture - Preliminary Blood - Venous No growth after 48 hours. Procedures Date of Service Date of Service: 04/22/24 Progress Note: A&P Assessment and plan (1) Appendicitis: Status: Acute (2) Pancreatic mass: Status: Acute Plan Resolution of nausea/vomiting symptoms from admission and tolerating solid diet. Abdominal pain is improved as well. Plan discharge to [facility] today with oral antibiotics. Time Spent With Patient Time: Total time managing care of this patient today ____ minutes. Quality Stroke Does the patient have a stroke diagnosis?: No VTE Prior VTE?: Yes VTE Risk Level:: Surgical - high VTE Device Contraindication: N/A - Device Ordered VTE Drug Contraindication: N/A - Med Ordered
--- NOTE | 2024-04-22 07:41 | P.DS_ITS ---
DS: Providers Provider Date of Service: 04/22/24 Date of admission: 04/19/24 15:59 Date of discharge: 04/22/24 Primary care physician: Danyell Glass MD Admitting clinician: Sahil Goncalves Consults: 04/19/24 15:58 Consult to Hospitalist Routine Comment: Consulting Provider: Hospitalist Reason For Exam: appendicitis, panc ca, Afib, med management 04/20/24 08:22 Consult to Gastroenterology Routine Consulting Provider: Joe Cruz Reason for consultation: Pancreatic cancer, stent 04/20/24 23:17 Consult to Wound Care Routine Reason for consultation: stage II to coccyx Discharging clinician: Sahil Goncalves DS: Transfer Hospital Acceptance Reason for Transfer: Short term rehabilitation following left pubic rami, acetabular fracture DS: Diagnosis Discharge Diagnosis (1) Appendicitis: Status: Acute (2) Closed fracture of inferior pubic ramus: Status: Acute (3) Pancreatic cancer: Status: Acute DS: Summary Hospital Course Hospital Course: 74-year-old female patient with multiple medical problems presenting with complaints of nausea and vomiting of bilious material this morning. She previously underwent a pelvic CT to evaluate a left pelvic fracture and was thought to possibly have incidentally noted early appendicitis. WBC was normal however. The patient denies any abdominal pain in the right lower quadrant but does note some tenderness when the abdomen is palpated. Her past history is most significant for metastatic pancreatic cancer. 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 She had a stent placement to bypass the pancreatic cancer. Previous attempt at replacement of the stent was unsuccessful due to extrinsic compression from the tumor. She denies fever, chills, chest pain or shortness of breath. Patient was admitted to the surgical service. Examination reveals her abdomen to be minimally tender in the right lower quadrant with no peritoneal signs of decision after discussion with the patient was to attempts non operative management with IV antibiotics. She was placed on Zosyn IV. Repeat laboratories in the a.m. revealed a normal WBC and abdominal exam revealed no significant tenderness in the right lower quadrant. She was tender in the left lower quadrant due to her pelvic fracture. She continued on the IV antibiotics and was subsequently started on a diet. After 24 hours she was able to tolerate regular diet without further nausea or vomiting. Her abdominal exam remained benign with no evidence of acute appendicitis. Plan is for discharge back to her short-term rehab today on oral antibiotics. She will continue her follow-up with Oncology, Orthopedics, gastroenterology, and will follow-up in our office in approximately 1 week. She has been placed on Augmentin for 7 days. The patient expressed understanding and agrees with the plan. Time spent discussing smoking cessation with patient: 3 to 10 minutes Status at Discharge Functional status at discharge: bed bound Overall status at discharge: patient is not back to baseline Time Attestation Total time managing care of this patient today: 20 mintues. Discharge Coordination Time (in mins): 20 Quality: Safe Use of Opioids Does Pt have an Active Cancer Diagnosis on the Problem List?: Yes Opioid Measure Date for [facility] Report: 03/23/24 Opioid Measure Time for [facility] Report: 07:48 Quality: Stroke Does the patient have a stroke diagnosis?: No Physical Exam Vital Signs: Vital Signs: Last Vital Signs Temp 96.8 F 04/22/24 03:36 Pulse 82 04/22/24 03:36 Resp 18 04/22/24 03:36 BP 143/67 H 04/22/24 03:36 Pulse Ox 97 04/22/24 03:36 O2 Del Method Room Air 04/22/24 03:36 BMI result Body Mass Index 21.8 Const: General: no acute distress Nutritional Appearance: well nourished Orientation/consciousness: patient oriented x3 Resp: Effort & Inspection: normal respiratory effort, no audible wheezes, no cough and no respiratory distress GI: Other: soft, non-distended, tender in the LLQ, no rebound or guarding. Skin: Other: warm, dry Neuro: General: patient oriented x3 DS: Data Data Completed and Pending Completed studies during hospitalization [Text1]: Procedures Detachment at Right 1st Toe, Complete, Open Approach (12/17/23) Dilation of Common Bile Duct with Intraluminal Device, Via Natural or Artificial Opening Endoscopic (09/25/23) Excision of Common Bile Duct, Via Natural or Artificial Opening Endoscopic, Diagnostic (09/25/23) Extraction of Common Bile Duct, Via Natural or Artificial Opening Endoscopic, Diagnostic (09/25/23) Extraction of Right Foot Subcutaneous Tissue and Fascia, Open Approach (12/17/23) Fluoroscopy of Bile Ducts using Low Osmolar Contrast (09/25/23) Transfusion of Nonautologous Red Blood Cells into Peripheral Vein, Percutaneous Approach (12/17/23) Labs on day of discharge: Laboratory Results - last 24 hr 04/21/24 04/21/24 04/21/24 11:14 16:05 19:41 POC Glucose 308 H 281 H 291 H Preliminary micro results at discharge 04/19/24 12:34 Blood Culture - Preliminary Blood - Venous No growth after 48 hours. 04/19/24 11:44 Blood Culture - Preliminary Blood - Venous No growth after 48 hours. Discharge Plan Discharge Anticipated Discharge Date/Time: 04/22/24 07:36 Patient Disposition: Xfer SNF Discharge Diagnosis: acute appendicitis Referrals: Tala Ritter PA-C [Physician Chief Executive] - 2 Weeks Sahil Goncalves MD [Physician] - 1 Week Danyell Glass MD [Primary Care Provider] - 1 Week Discharge Medications: New amoxicillin-pot clavulanate 875-125 mg tablet 1 tab PO BID Qty: 14 0RF Continued atorvastatin 10 mg tablet 10 mg PO BEDTIME@2000 Eliquis 5 mg tablet 5 mg PO BID ondansetron 8 mg Tablet,Disintegrating 8 mg PO Q8H PRN (Reason: Nausea And Vomiting) Qty: 30 3RF potassium chloride 10 mEq Capsule, Extended Release 40 meq PO BID tramadol 50 mg Tablet 50 mg PO Q6H PRN (Reason: Pain) acetaminophen 500 mg Tablet 1,000 mg PO TID magnesium hydroxide [Milk of Magnesia] 400 mg/5 mL Suspension 30 ml PO DAILY PRN (Reason: no BM in 3 days) ascorbic acid (vitamin C) 500 mg Tablet 500 mg PO DAILY@0900 bisacodyl 10 mg Suppository 10 mg [place] DAILY PRN (Reason: Constipation) Fleet Enema 19-7 gram/118 mL Enema 118 ml [place] DAILY PRN (Reason: Constipation) insulin lispro [Humalog KwikPen Insulin] 100 unit/mL Insulin Pen 1 sliding scale dose SUBCUT TIDAC Protocol: Insulin Correction Scale Less than or equal to 110 ---- Give (units): 0 111 to 150 Give (units): 2 151 to 200 Give (units): 4 201 to 250 Give (units): 6 251 to 300 Give (units): 8 301 to 350 Give (units): 10 Greater than 350 Give (units): 10 Call MD if Blood Glucose > : 350 metoprolol tartrate 25 mg tablet 25 mg PO BID insulin glargine [Lantus U-100 Insulin] 100 unit/mL solution 6 unit subcut BEDTIME ferrous sulfate 325 mg (65 mg iron) tablet 325 mg PO DAILY@0900 diltiazem HCl [DILT-XR] 120 mg capsule,ext.rel 24h degradable 120 mg PO DAILY@0900 Discharge Orders: Discharge Order (Routine); Ordered 04/22/24 Ordered By: Sahil Goncalves Diet: Advance to usual diet Activity on Discharge: non weight bearing Stand Alone Forms: Patient Portal Discharge page Print Language: Chinese Activity Restrictions/Additional Instructions: Follow up in office in a week. ([phone]) Call Your Doctor If: ? ? -Your temperature exceeds 101.5? F? ? ? -You experience excessive pain or swelling ? ? -You have an unexpected reaction to medication ? ? -You experience continued vomiting/nausea Topical wound Care Recommendations: Sacrum - Off Load Pressure? - Cleanse with PH balance spray or wipes, pat dry. ?Apply thin layer of Triad to wound bed. Do not remove all of paste between applications as this may cause further skin damage.? Cover with foam dressing to aid in off loading and protection from friction. Change every 5 days and PRN. W affle cushion when up to chair and frequent repositions to off load pressure. Recommend continued follow up out patient Wound Clinic at [address] [place] [id number] and to call for an appointment at time of discharge. [phone].? Care Plan Goals: Return to baseline health, resolution of appendicitis. Health Concerns: acute appendicitis sacral ulcer Plan of Treatment: antibiotics f/u in office in 1 week Assessment: Improved
[2024-04-22 07:56] VITALS: BP 148/73; PULSE 84; RESP 16; TEMP 36.3; O2SAT 97
[2024-04-22 08:03] LABS: Glucose, Whole Blood 159 mg/dL (60-115)
--- NOTE | 2024-04-22 08:52 | MHC.CM.PN ---
pts josymatt notified of dc today at 12 back to [facility]
[2024-04-22] MEDS: Metoprolol Tartrate 25 MG TABLET PO (09:47)
[2024-04-22] MEDS: Ascorbic Acid 500 MG TABLET PO (09:47)
[2024-04-22] MEDS: 0.9 % Sodium Chloride Flush 3 ML SYRINGE IVFLUSH (09:47)
[2024-04-22] MEDS: Insulin Lispro 100 UNIT/ML 3 ML VIAL SUBCUT ×2 (09:47→13:05)
[2024-04-22] MEDS: dilTIAZem HCL CD 120 MG CAP.ER.DEG PO (09:47)
[2024-04-22] MEDS: Ferrous Sulfate 324 MG TABLET.DR PO (09:47)
[2024-04-22] MEDS: Potassium Chloride ER 20 MEQ TAB.ER.PRT 40 MEQ PO (09:47)
[2024-04-22 11:30] LABS: Glucose, Whole Blood 210 mg/dL (60-115)
== END 2024-04-22 14:03 | disposition skilled nursing facility (03) | DRG 393 ==
LOC: HO.ED 13:55 → HO.EDOVER 16:21 → HO.S3 17:26
PROVIDERS: Hospitalist; Physician Assistant; Admitting Provider Surgery; Emergency Provider Emergency Medicine; PCP Internal Medicine; Visit Provider Surgery
DX: K35.80 Unspecified acute appendicitis (principal); S32.402A Unspecified fracture of left acetabulum, initial encounter for closed fracture; S32.592A Other specified fracture of left pubis, initial encounter for closed fracture; W19.XXXA Unspecified fall, initial encounter; C25.0 Malignant neoplasm of head of pancreas; I50.32 Chronic diastolic (congestive) heart failure; E78.5 Hyperlipidemia, unspecified; E11.51 Type 2 diabetes mellitus with diabetic peripheral angiopathy without gangrene; D50.9 Iron deficiency anemia, unspecified; I48.0 Paroxysmal atrial fibrillation; N18.2 Chronic kidney disease, stage 2 (mild); E11.22 Type 2 diabetes mellitus with diabetic chronic kidney disease; Z79.01 Long term (current) use of anticoagulants; Z79.4 Long term (current) use of insulin; Z79.899 Other long term (current) drug therapy
CPT/HCPCS: 36415; 72192; 74177; 80048; 80053; 80076; 82947; 83605; 83690; 83735; 85025; 85027; 85610; 85652; 86140; 87040; 97163; 99282; 99284; 99285; J0696; J1171; J2543; Q9967

== ENCOUNTER → 2024-04-19 15:59 | Outpatient (BNV) | payer MEDICARE, OTHER, SELFPAY | PROVIDERS: Admitting Provider Surgery; Emergency Provider Emergency Medicine; PCP Internal Medicine; Visit Provider Surgery | DX: K35.890 Other acute appendicitis without perforation or gangrene (principal); S32.599A Other specified fracture of unspecified pubis, initial encounter for closed fracture; C25.0 Malignant neoplasm of head of pancreas; K86.89 Other specified diseases of pancreas | CPT/HCPCS: 99222; 99232; 99238; 99284; 99499 ==

== ENCOUNTER → 2024-04-19 15:59 | Outpatient (BNV) | payer MEDICARE, OTHER, SELFPAY | PROVIDERS: Admitting Provider Surgery; Emergency Provider Emergency Medicine; PCP Internal Medicine; Visit Provider Internal Medicine Gastroenterology | DX: K35.890 Other acute appendicitis without perforation or gangrene (principal); C25.0 Malignant neoplasm of head of pancreas | CPT/HCPCS: 99223 ==

== ENCOUNTER → 2024-04-19 15:59 | Outpatient (BNV) | payer MEDICARE, OTHER, SELFPAY | PROVIDERS: Admitting Provider Surgery; Emergency Provider Emergency Medicine; PCP Internal Medicine; Visit Provider Student in an Organized Health Care Education/Training Program | DX: R74.01 Elevation of levels of liver transaminase levels (principal); K35.80 Unspecified acute appendicitis | CPT/HCPCS: 99222; 99232 ==

== ENCOUNTER 2024-05-20 12:16 | Outpatient (AMB) | payer MEDICARE, OTHER, SELFPAY ==
--- NOTE | 2024-05-20 12:45 | MHC.OFFVIS ---
Intake Visit Reasons: OV - Left pelvic fx, DOI 04/04/24 Intake Note: Doris is a 74 year old female who presents today for a evaluation of her left pelvic fx, DOI 04/04/24. CT scan done on 04/18/24. She mentions not having much pain today. She has been going to PT and it is going well. Allergies doxycycline Allergy (Verified 05/20/24 12:49) Rash HPI HPI OV - Left pelvic fx, DOI 04/04/24: Details: 74-year-old female who presents in the office today for a follow-up of a left pelvic fracture status post a fall, which occurred on 04/04/24. She was attempting to close the curtain and reached too far, resulting in a fall on her left side. I last saw the patient in the office on 04/15/24, when a STAT CT scan of the pelvis was ordered. She was recommended to remain non-weight bearing on her left lower extremity. While in the office today, the patient reports improved pain today. She mentions she has been doing well with attending physical therapy sessions. [facility] Medical History Anemia PAF (paroxysmal atrial fibrillation) Port-A-Cath in place Osteomyelitis of great toe of right foot Pancreatic cancer Type 2 diabetes mellitus Pancreatic mass CHF (congestive heart failure) CKD (chronic kidney disease) Afib Surgical History Hx of surgical procedure (~12/21/23) H/O foot surgery H/O dilation and curettage H/O eye surgery [place] teeth removed History of cholecystectomy Family History Father Prostate cancer Sister Breast cancer Social History Household Members: Family Household Members Other:: lives on 1st floor. Son lives on 2nd floor Housing: House Housing Other:: two family house Do you presently have visiting nurse or other home services: Yes (charles gallegos nurse for [facility] on foot) Alcohol intake: former Patient Tobacco Use Status: Never used Tobacco e-Cigarette/Vaping Use: Never Used Second Hand Smoke Exposure: No Advance Directives Date on File: 10/01/23 service: No Current occupational status: retired Review of Systems Const All systems reviewed & are unremarkable except as noted in HPI and below Physical Exam Const General: cooperative, healthy appearing and no acute distress Resp Effort & Inspection: normal respiratory effort and able to speak in complete sentences Cardio Rate: regular rate Peripheral pulses: Peripheral pulses 2+ throughout GI Palpation (GI): Soft to palpation Skin Lesions: no lesions Rashes: no rashes Extrem Other: Left hip: Able to perform SLR is no pain. Able to dorsi and plantar flex. Denies numbness and tingling sensation. No pain with internal and external rotaion. NVI. Assessment & Plan Assessment & Plan (1) Closed pelvic fracture: Code(s): S32.9XXA - Fracture of unspecified parts of lumbosacral spine and pelvis, initial encounter for closed fracture Category: Medical (2) Closed fracture of inferior pubic ramus: Code(s): S32.599A - Other specified fracture of unspecified pubis, initial encounter for closed fracture Category: Medical Plan 74-year-old female who presents in the office today for a follow-up of a left pelvic fracture status post a fall, which occurred on 04/04/24. She was attempting to close the curtain and reached too far, resulting in a fall on her left side. I last saw the patient in the office on 04/15/24, when a STAT CT scan of the pelvis was ordered. She was recommended to remain non-weight bearing on her left lower extremity. While in the office today, the patient reports improved pain today. She mentions she has been doing well with attending physical therapy sessions. She may progress to WBAT with a walker. Physical therapy recommendations ae as follows: Gait training with a walker. Glute, core and quad strengthening. She may follow-up in 6 weeks with repeat x-rays sooner if needed. X-rays obtained in the office today reveal routine healing of the left superior aecetabular fracture. CT Pelvis revealed: 1. Oblique fracture through the anterior aspect of the left acetabulum/lateral aspect of the left superior pubic ramus with cortical step-off measuring up to 0.4 cm. This contacts the anterior periphery of the acetabular articular surface. 2. Mildly displaced, oblique fracture through the central aspect of the left inferior pubic ramus with cortical step-off measuring up to 0.3 cm. 3. Findings consistent with early appendicitis. This critical result was discussed with DENISE León at 5:00 PM on 06/18/2023 and it was ascertained that the content and urgency of the report was understood at the time of direct communication. Orders: Orders XR pelvis 1-2V Today M25.559 - Pain in unspecified hip Patient Instructions: Scribed by Rocio Andrews emergency medicine medical director, for Tala Ritter PA-C on 05/20/24 at 1:06 pm EST. Coding Level of Care Code Global (72451) Diagnoses Closed pelvic fracture S32.9XXA Closed fracture of inferior pubic ramus S32.599A
--- OUTSIDE RECORDS SUMMARY | 2024-05-21 21:05 | XMS_ITS ---
Author Organization [facility] Address [address] [place] [address] Care Team Providers Care Bar Tender Name Role Phone Danyell Glass Primary Care Provider Maninder Gracia, Angelique Unavailable [phone] REASON FOR VISIT cx 02/03 Encounters Encounter Location Date Provider Diagnosis [facility] [address] [place] [address] 01/31/2024 Angelique Black Plan Of Treatment No Information Progress Notes * Doris TAVAREZ MDOB:1950 (74 yo F)Acc No.[id number]:01/31/2024 Patient:?Doris Tavarez :1950???Age:74 Y???Sex:Female Address:[address] [place] [address] [place], [address] * true * Date:? Generated for Johnniei inocencia/Marcela/eTransmitting on:?05/21/2024 09:05 PM EST
--- OUTSIDE RECORDS SUMMARY | 2024-05-21 21:05 | XMS_ITS | Continuity of Care Document ---
Author Organization [facility] Address [address] [place] [address]- Care Team Providers Care Card Feeder Name Role Phone Blayne Moore MD Primary Care Physician Unavai lable [id number] Date[facility]s): 04/14/24 - 05/14/24 [facility] [address] [place] [address]- Encounter Type: Triage Allergies, Adverse Reactions, Alerts Substance Criticality Severity Reaction Reaction Severity Status doxycycline 1 Unable to assess criticality Unknown Active 1rash Medications acetaminophen 325 mg oral tablet 650 mg, 2, tablet, By Mouth, Every 8 hours, PRN, Refills 0, Maintenance, as needed for fever/pain, 01/18/24 9:23:00 AM EDT, Partial fill upon patient request if the prescription is for a schedule II opioid drug. Start Date: 01/18/24 Status: Ordered Repeat number: 1 atorvastatin 10 mg oral tablet 1 tablet = 10 mg, By Mouth, Daily, # 30 tablet, 0 Refills, Maintenance, 10/26/23 3:04:00 PM EDT, Partial fill upon patient request if the prescription is for a schedule II opioid drug. Start Date: 10/26/23 Status: Ordered Quantity: 30.0 Unit: tablet Repeat number: 1 bisacodyl 10 mg rectal suppository 1 supp = 10 mg, Rectally, Daily, PRN for constipation, 0 Refills, Maintenance, 01/18/24 9:25:00 AM EDT, Suppository, Partial fill upon patient request if the prescription is for a schedule II opioid drug. Start Date: 01/18/24 Status: Ordered Repeat number: 1 Cardizem CD 120 mg/24 hours oral capsule, extended release 120 mg, By Mouth, Daily, Refills 0, Maintenance, 03/08/24 11:41:00 AM EDT, Partial fill upon patientrequest if the prescription is for a schedule II opioid drug. Start Date: 03/08/24 Status: Ordered Repeat number: 1 Eliquis 5 mg oral tablet TAKE 1 TABLET BY MOUTH TWICE A DAY Start Date: 10/26/23 Status: Ordered Repeat number: 1 ferrous sulfate 325 mg oral tablet 1 Unknown, by mouth, 0 Refill(s), 0 Refills, 01/02/24 9:00:00 AM EDT, Partial fill upon patient request if the prescription is for a schedule II opioid drug. Start Date: 01/02/24 Status: Ordered Repeat number: 1 Fleet Enema 19 gm-7 gm rectal enema 1 each, Rectally, Once, PRN as needed for constipation, 0 Refills, Maintenance, 01/18/24 9:26:00 AM EDT, Enema, Partial fill upon patient request if the prescription is for a schedule II opioid drug. Start Date: 01/18/24 Status: Ordered Repeat number: 1 furosemide 40 mg oral tablet 180 each, 0 Refill(s), TAKE 1 TABLET BY MOUTH TWICE A DAY, Refills 0, 03/26/24 11:07:00 AM EDT, Partial fill upon patient request if the prescription is for a schedule II opioid drug. Start Date: 03/26/24 Status: Ordered Repeat number: 1 insulin lispro 100 u/ml subcutaneous injection 2-10 units, Subcutaneous Injection, 3 times a day before meals, << Sliding Scale Comments >> 100 - 149 2 units Call if less than 70 150 - 199 4 units 200 - 249 6 units 250 - 299 8 units 300 - 349 10 units Call if greater than 400 << Sliding Scale Comments >>, 0 Refills, Maintenance, 03/08/24 11:41:00 AM EDT, Injection, Partial fill upon patient request if the prescription is for a schedule II opioid drug. Start Date: 03/08/24 Status: Ordered Repeat number: 1 Lantus Solostar Pen 100 units/mL subcutaneous solution = 6 units, Subcutaneous Injection, Daily at bedtime, 0 Refills, Maintenance, 01/18/24 9:27:00 AM EDT,Solution, Partial fill upon patient request if the prescription is for a schedule II opioid drug. Start Date: 01/18/24 Status: Ordered Repeat number: 1 metoprolol 25 mg oral tablet 25 mg, 1, tablet, By Mouth, 2 times a day, Refills 0, Maintenance, 10/24/16 9:20:44 AM EDT Start Date: 10/24/16 Status: Ordered Repeat number: 1 Milk of Magnesia 8% oral suspension 30 mL = 2.4 Gm, By Mouth, Daily at bedtime, PRN for constipation, 0 Refills, Maintenance, 01/18/24 9:38:00 AM EDT, Suspension, Partial fill upon patient request if the prescription is for a schedule IIopioid drug. Start Date: 01/18/24 Status: Ordered Repeat number: 1 Miscellaneous Rx 0 Refills, 100 each, 0 Refill(s), USE TO TEST ONCE DAILY, 03/26/24 11:07:00 AM EDT Start Date: 03/26/24 Status: Ordered Repeat number: 1 ondansetron 8 mg oral tablet, disintegrating 1 tablet = 8 mg, By Mouth, Every 8 hours, PRN Nausea & Vomiting, 0 Refills, Maintenance, :39:00 AM EDT, Tablet, Partial fill upon patient request if the prescription is for a schedule II opioid drug. Start Date: 01/18/24 Status: Ordered Repeat number: 1 Potassium Chloride (Eqv-K-Tab) 20 mEq oral tablet, extended release 2 tablets, By Mouth, 2 times a day Start Date: 01/18/24 Status: Ordered Repeat number: 1 Readi-Cat 2 Smoothie Leo 2% oral suspension See Instructions, as directed, # 2 each, 0 Refills, Maintenance, 03/10/24 8:56:00 AM EDT, [facility]/pharmacy #[id number], Partial fill upon patient request if the prescription is for a schedule II opioid drug., as directed, 163, cm, 03/08/24 11:38:00 EDT, Height, 59.8, kg, 02/28/24 10:25:00 EDT, Dry Weight Start Date: 03/10/24 Status: Ordered Quantity: 2.0 Unit: each Repeat number: 1 Right first and right second amputation toe filler prosthetic Right first and right second amputation toe filler prosthetic, See Instructions, # 1 each, Refills 0, Tot. Refills 0, Maintenance, Right first and right second amputation toe filler prosthetic, 05/12/24 10:30:00 AM EST, Supply Start Date: 05/12/24 Status: Ordered Quantity: 1.0 Unit: each Repeat number: 1 Indication: Acquired absence of right great toe Synjardy XR 25 mg-1000 mg oral tablet, extended release 90 each, 0 Refill(s), TAKE 1 TABLET BY MOUTH EVERY DAY, 0 Refills, 03/26/24 11:07:00 AM EDT, Partial fill upon patient request if the prescription is for a schedule II opioid drug. Start Date: 03/26/24 Status: Ordered Repeat number: 1 Vitamin C 500 mg oral tablet 1 tablet = 500 mg, By Mouth, Daily, 0 Refills, Maintenance, 01/18/24 9:24:00 AM EDT, Tablet, Partial fill upon patient request if the prescription is for a schedule II opioid drug. 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 Pancreatic cancer Confirmed Active Social History Social History Type Response Smoking Status Never (less than 100 in lifetime) entered on: 04/01/24 Sex Sex Representation Female (finding) Patient Care team information Care Team Personnel Name: Margaux Watters RN Position: [facility] RN Member Role: Primary Care Nurse Name: Rachael Mariee RN Position: [facility] RN Member Role: Primary Care Nurse Name: Mack Spain RN Position: [facility] RN Member Role: Primary Care Nurse Name: Travis Blevins RN Position: [facility] RN Member Role: Primary Care Nurse Name: Jeaneth Landa RN Position: [facility] RN Member Role: Primary Care Nurse Name: Merced Romero RN Position: S RN Member Role: Primary Care Nurse Name: Blayne Moore MD Position: [facility] Physician (General Medicine) Member Role: PCP Name: Cedric Asif RN Position: [facility] RN Member Role: Primary Care Nurse Name: Marta Velez RN Position: [facility] RN Member Role: Primary Care Nurse Name: Kiersten Castillo RN Position: [facility] RN Member Role: Primary Care Nurse Name: Zandra Vera RN Position: [facility] RN Member Role: Primary Care Nurse Name: Gina Pavon RN Position: [facility] RN Member Role: Primary Care Nurse Name: An Thurman RN Position: [facility] ED RN W/OE and Tasks Member Role: Primary Care Nurse Name: Mark Chen RN Position: [facility] RN Member Role: Primary Care Nurse Name: Lisa Aguayo RN Position: [facility] RN Member Role: Primary Care Nurse Name: Brady Mg Position: [facility] Outreach Member Role: Lifetime Consulting Physician Name: Isabel Robles RN Position: [facility] RN Member Role: Primary Care Nurse Name: Nathaniel Danielle MD Position: [facility] Renal MD Member Role: Lifetime Consulting Physician Address: [address] [place] [address] [address] [facility] [address] Telecom: Name: Andreina Garcia RN Position: [facility] RN Member Role: Primary Care Nurse Name: Rizwana Franklin RN Position: [facility] RN Member Role: Primary Care Nurse Name: Stephanie Mcdonald RN Position: [facility] RN Member Role: Primary Care Nurse Name: Sean Freeman RN Position: [facility] RN Member Role: Primary Care Nurse Name: Jorge A Gallo RN Position: [facility] RN Member Role: Primary Care Nurse Name: Chava Lorenz RN Position: [facility] RN Member Role: Primary Care Nurse Care Team Related Persons Name: MARIBELL GUNDERSON Name: VIRGINIA GUNDERSON Name: NEPTALI JA Name: UNK, UNKNOWN Insurance Providers Guarantor name: YOVANI GUNDERSON Health Plan Information #: 1 Payer: MEDICARE PART B OUTPT Member Number: NA Policy Number: NA Group Number: NA Health Plan Information #: 2 Payer: [facility] Member Number: NA Policy Number: NA Group Number: NA
--- OUTSIDE RECORDS SUMMARY | 2024-05-21 21:05 | XMS_ITS ---
Author Organization [facility] Address [address] [place] [address] Care Team Providers Care Attenuator Name Role Phone Danyell Glass Primary Care Provider Angelique Garcia [phone] REASON FOR VISIT CX per Dr Gracia Encounters Encounter Location Date Provider Diagnosis [facility] [address] [place] [address] 11/08/2023 Angelique Gracia Plan Of Treatment No Information Progress Notes * NEPTALI Doris MDOB:1950 (74 yo F)Acc No.[id number]:11/08/2023 Progress Notes Patient:Doris YE Provider:?Angelique Gracia DPM :1950???Age:73 Y???Sex:Female D ate:11/08/2023 Address:[address] [place] [address] [id number] Pcp:Danyell Glass Subjective: * Chief Complaints: * ???1. CX per Dr Gracia. * Medical History:? Objective: * Vitals:? Assessment: Plan: * Treatment: * Images: * The named appointment provid er may or may not be the originator of this progress note, and it is not deemed complete until electronically signed by the appointment provider. Sign off status: Pending * Provider:?Angelique Gracia DPM Date:?2023 Generated for Printi inocencia/Favandana/eTransmitting on:?05/21/2024 09:05 PM EST
--- OUTSIDE RECORDS SUMMARY | 2024-05-21 21:05 | XMS_ITS | Continuity of Care Document ---
Author Organization [facility] Address [address] [place] [address]- Care Team Providers Care Office Copy Selector Name Role Phone Blayne Moore MD Primary Care Physician Unavai lable [facility] [id number] Date(s): 03/26/24 - 05/10/24 [facility] [address] [place] [address]- Attending Physician: Marie Mercedes NP Admitting Physician: Marie Mercedes NP Encounter Type: Pre Office Visit Allergies, Adverse Reactions, Alerts Substance Criticality Severity [...] 0 Refills, Maintenance, 03/10/24 8:56:00 AM EDT, [facility]/pharmacy #[id number], Partial fill upon patient request if the prescription is for a schedule II opioid drug., as directed, 163, cm, 03/08/24 11:38:00 EDT, Height, 59.8, kg, 02/28/24 10:25:00 EDT, Dry Weight Start Date: 03/10/24 Status: Ordered Quantity: 2.0 Unit: each Repeat number: 1 Synjardy XR 25 mg-1000 mg oral tablet, [...] Team Personnel Name: Margaux Watters RN Position: [facility] RN Member Role: Primary Care Nurse Name: Rachael Mariee RN Position: [facility] RN Member Role: Primary Care Nurse Name: Mack Spain RN Position: [facility] RN Member Role: Primary Care Nurse Name: Travis Blevins RN Position: [facility] RN Member Role: Primary Care Nurse Name: Jeaneth Landa RN Position: [facility] RN Member Role: Primary Care Nurse Name: Merced Romero RN Position: [facility] RN Member Role: Primary Care Nurse Name: Blayne Moore MD Position: [facility] Physician (General Medicine) Member Role: PCP Name: Cedric Asif RN Position: [facility] RN Member Role: Primary Care Nurse Name: Marta Velez RN Position: [facility] RN Member Role: Primary Care Nurse Name: Kiersten Castillo RN Position: [facility] RN Member Role: Primary Care Nurse Name: Zandra Vera RN Position: [facility] RN Member Role: Primary Care Nurse Name: Gina Pavon RN Position: [facility] RN Member Role: Primary Care Nurse Name: An Thurman RN Position: [facility] ED RN W/OE and Tasks Member Role: Primary Care Nurse Name: Mark Chen RN Position: [facility] RN Member Role: Primary Care Nurse Name: Lisa Aguayo RN Position: [facility] RN Member Role: Primary Care Nurse Name: Brady Mg Position: [facility] Outreach Member Role: Lifetime Consulting Physician Name: Isabel Robles RN Position: [facility] RN Member Role: Primary Care Nurse Name: Nathaniel Danielle MD Position: [facility] Renal MD Member Role: Lifetime Consulting Physician Address: [address] [place] [address] [address] [facility] [address] Telecom: Name: Andreina Garcia RN Position: [facility] RN Member Role: Primary Care Nurse Name: Rizwana Franklin RN Position: [facility] RN Member Role: Primary Care Nurse Name: Stephanie Mcdonald RN Position: [facility] RN Member Role: Primary Care Nurse Name: Sean Freeman RN Position: [facility] RN Member Role: Primary Care Nurse Name: Jorge A Gallo RN Position: [facility] RN Member Role: Primary Care Nurse Name: Chava Lorenz RN Position: [facility] RN Member Role: Primary Care Nurse Care Team Related Persons Name: MARIBELL GUNDERSON Name: IVRGINIA GUNDERSON Name: JA GUNDERSON Name: UNK, UNKNOWN Insurance Providers Guarantor name: YOVANI GUNDERSON Health Plan Information #: 2 Payer: [facility] Member Number: [id number] Policy Number: NA Group Number: [id number] Health Plan Information #: 1 Payer: MEDICARE PART B OUTPT Member Number: [id number] Policy Number: NA Group Number: NA
--- OUTSIDE RECORDS SUMMARY | 2024-05-21 21:05 | XMS_ITS | Continuity of Care Document ---
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(Discharge Diagnosis) - 05/12/24 Attending Physician: Stephanie Rizo NP Admitting Physician: Darrius MONTOYA, Stephanie Madrid Encounter Type: Office Visit Allergies, Adverse Reactions, Alerts Substance [...] Date: 03/08/24 Status: Ordered Repeat number: 1 Lanfrance Solostar Pen 100 units/mL subcutaneous solution = [...] 0 Refills, Maintenance, 03/10/24 8:56:00 AM EDT, [facility]/pharmacy #[id number], Partial fill upon patient request if the [...] Condition Confirmation Course Effective Dates Status Health at Informant 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 Pancreatic cancer Confirmed Active Diagnosis Diagnosis Type Effective Dates Health Status Clinical Service Informant 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 Discharge Diagnosis 05/12/24 Vital Signs Most recent to oldest [Reference Range]: 1 Height 163 cm (05/09/24 3:38 PM) Weight 62.60 kg (05/09/24 3:38 PM) Oxygen Saturation [94-100 %] 95 % (05/09/24 3:38 PM) Pulse Rate [55-90 bpm] 84 bpm (05/09/24 3:38 PM) Body Mass Index [18.5-24.99 kg/m2] 23.56 kg/m2 (05/09/24 3:38 PM) Blood Pressure [90-138/55-84 mm Hg] 112/ 70mm Hg (05/09/24 3:38 PM) Mode of Delivery (Oxygen) Room air (05/09/24 3:38 PM) Blood pressure sites Arm, left (05/09/24 3:38 PM) Weight Obtained Via Patient/family state d (05/09/24 3:38 PM) Social History Social History Type Response Smoking Status Never (less than 100 in lifetime) entered on: 04/01/24 Sex Sex Representation Female (finding) Note * Zandra Walker: PERFORM Event Display: Patient Education/Instruction Authored Date: [id number] Ambulatory Adult Visit Summary [facility] [address] [facility] [address] [address] Name: YOVANI GUNDERSON : 1950?? Visit: 05/09/2024 15:17?? Ambulatory Visit Instructions ?? Your Care Team Primary Care Provider Blayne Moore MD?? This Visit Provider Darrius MONTOYA, Stephanie Vitals Signs Pulse Rate: 84 bpm Height: 163 cm Systolic Blood Pressure: 112 mm Hg Weight: 62.6 kg Diastolic Blood Pressure: 70 mm Hg Body Mass Index: 23.56 kg/m2 Oxygen Saturation: 95 % Body surface area: 1.68 What to do next Scheduled Follow-Up Appointments Sunday 10:30 AM EST ?? Where: [facility] Status: Pending Medications The list below reflects the information in our records and provided by you today along with any changes made during this visit. Please continue your medications until treatment is completed or stopped by your provider. If this is different from the information you have or there are other questions,please contact the prescribing provider. What How Much When Instructions Unchanged Acetaminophen (acetaminophen 325 mg oral tablet) 2 tab(s) Oral Every 8 hours as needed for as needed for fever/pain Unchanged apixaban (Eliquis 5 mg oral tablet) TAKE 1 TABLET BY MOUTH TWICE A DAY ?? Unchanged Ascorbic Acid (Vitamin C 500 mg oral tablet) 1 tab(s) Oral Daily Unchanged Atorvastatin (atorvastatin 10 mg oral tablet) 1 tab(s) Oral Daily Unchanged Barium Sulfate (Readi-Cat 2 Smoothie Leo 2% oral suspension) See instructions as directed ?? Unchanged Bisacodyl (bisacodyl 10 mg rectal suppository) 1 suppository(ies) Per rectum Daily as needed for for constipation Unchanged Diltiazem (Cardizem CD 120 mg/ 24 hours oral capsule, extended release) 120 Milligram Oral Daily Unchanged empagliflozin-metFORMIN (Synjardy XR 25 mg-1000 mg oral tablet, extended release) 90 each, 0 Refill(s), TAKE 1 TABLET BY MOUTH EVERY DAY ?? Unchanged Ferrous Sulfate (ferrous sulfate 325 mg oral tablet) 1 Unknown, by mouth, 0 Refill(s) ?? Unchanged Furosemide (furosemide 40 mg oral tablet) 180 each, 0 Refill(s), TAKE 1 TABLET BY MOUTH TWICE A DAY ?? Unchanged Insulin Glargine (Lantus Solostar Pen 100 units/ mL subcutaneous solution) 6 unit(s) Subcutaneous Injection Daily at Bedtime Unchanged Insulin Lispro (insulin lispro 100 u/ ml subcutaneous injection) 2-10 units Subcutaneous Injection 3 times a day before meals << Sliding Scale Comments >> 100 - 149 ?? 2 units Call if less than 70 150 - 199 ?? 4 units 200 - 249 ?? 6 units 250 - 299 ?? 8 units 300 - 349 ?? 10 units Call if greater than 400 << Sliding Scale Comments >> ?? Unchanged Metoprolol (metoprolol 25 mg oral tablet) 1 tab(s) Oral Twice a day Unchanged Milk of Magnesia (Milk of Magnesia 8% oral suspension) 30 Milliliter Oral Daily at Bedtime as needed for for constipation Unchanged Miscellaneous Rx 100 each, 0 Refill(s), USE TO TEST ONCE DAILY ?? Unchanged Ondansetron (ondansetron 8 mg oral tablet, disintegrating) 1 tab(s) Oral Every 8 hours as needed for Nausea & Vomiting Unchanged Potassium Chloride (Potassium Chloride (Eqv-K-Tab) 20 mEq oral tablet, extended release) 2 tablets Oral Twice a day Unchanged Sodium Biphosphate-Sodium Phosphate (Fleet Enema 19 gm-7 gm rectal enema) 1 Each Per rectum Once as needed for as needed for constipation Medications and Immunizations Administered Medications Given During Visit No medications given during this visit.?? Allergies (NKA means No Known Allergies) doxycycline Common Emergency Awareness Tips IS IT A STROKE? Act FAST and Check for these signs: FACE Does the face look uneven? ARM Does one arm drift down? SPEECH Does their speech sound strange? TIME Call at any sign of stroke ?? Heart Attack Signs Chest discomfort: Most heart attacks involve discomfort in the center of the chest and lasts more than a few minutes, or goes away and comes back. It can feel like uncomfortable pressure, squeezing, fullness or pain. Discomfort in upper body: Symptoms can include pain or discomfort in one or both arms, back, neck, jaw or stomach. Shortness of breath: With or without discomfort. Other signs: Breaking out in a cold sweat, nausea, or lightheaded. Remember, MINUTES DO MATTER. If you experience any of these heart attack warning signs, call to get immediate medical attention! ?? Smoking can increase your chances of developing chronic health problems and can cause harmful effects to other family members in your house. If you smoke, you are strongly encouraged to quit. Please call [facility] at [phone] or [phone] ([phone]) or log in to [email or web address] for referrals to smoking cessation programs. ?? The National Suicide Prevention Hotline is available 01/01 if you or someone you know needs to find a reason to keep living. By calling 8-810-484-[place]oola ([phone]) you'll be connected to a skilled, trained counselor at a crisis center in your area. [facility] Portal You can view and manage your care through the patient portal or by using a health care jennifer of your choosing. [facility] is a website that allows you to securely view your medical information including your hospital discharge summary, office visit summaries, medications and follow-up visits. You can also request appointments, renew medications, and request access to your medical information using a health care jennifer of your choosing, or just ask a question. You can enroll at [email or web address] or register during your next office visit. [facility], in keeping with [facility] guidance, no longer requires face masks for staff, patientsor visitors in most situations. Similiar to time spent indoors at other locations, there is the chance that you were exposed to repiratory viruses during your time with us (such as flu or COVID-19). If you develop symptoms concerning for a viral respiratory infection, please seek testing (and treatment if indicated) from your medical provider or home test kit. ?? Disclaimer: The information provided is of a general nature and is intended to be used in conjunction with the recommendations and advice of your health care practitioner. Every effort has been made to ensure that the information provided is accurate and complete at the time it is provided to you however, as your needs change, or, as new information becomes available, different or additional instructions may be required. ?? If you have questions, please consult with your primary care provider or pharmacist, as appropriate. This information is not intended to serve as substitution for assessment and evaluation by a qualified health care provider. If you do not have a primary care provider, you may find a [facility] provider by calling [facility] at [phone]. Patient Care team information Care Team Personnel Name: Margaux Watters RN Position: [facility] RN Member Role: Primary Care Nurse Name: Rachael Mariee RN Position: [facility] RN Member Role: Primary Care Nurse Name: Mack Spain RN Position: [facility] RN Member Role: Primary Care Nurse Name: Travis Blevins RN Position: [facility] RN Member Role: Primary Care Nurse Name: Jeaneth Lanad RN Position: [facility] RN Member Role: Primary Care Nurse Name: Merced Romero RN Position: [facility] RN Member Role: Primary Care Nurse Name: Blayne Moore MD Position: [facility] Physician (General Medicine) Member Role: PCP Name: Cedric Asif RN Position: [facility] RN Member Role: Primary Care Nurse Name: Marta Velez RN Position: [facility] RN Member Role: Primary Care Nurse Name: Kiersten Castillo RN Position: [facility] RN Member Role: Primary Care Nurse Name: Zandra Vera RN Position: [facility] RN Member Role: Primary Care Nurse Name: Gina Pavon RN Position: [facility] RN Member Role: Primary Care Nurse Name: An Thurman RN Position: [facility] ED RN W/OE and Tasks Member Role: Primary Care Nurse Name: Mark Chen RN Position: [facility] RN Member Role: Primary Care Nurse Name: Lisa Aguayo RN Position: [facility] RN Member Role: Primary Care Nurse Name: Brady Mg Position: [facility] Outreach Member Role: Lifetime Consulting Physician Name: Isabel Robles RN Position: [facility] RN Member Role: Primary Care Nurse Name: Nathaniel Danielle MD Position: [facility] Renal MD Member Role: Lifetime Consulting Physician Address: [address] [facility] [address] [facility] [address] Telecom: Name: Andreina Garcia RN Position: S RN Member Role: Primary Care Nurse Name: Rizwana Franklin RN Position: S RN Member Role: Primary Care Nurse Name: Stephanie Mcdonald RN Position: [facility] RN Member Role: Primary Care Nurse Name: Sean Freeman RN Position: [facility] RN Member Role: Primary Care Nurse Name: Jorge A Gallo RN Position: [facility] RN Member Role: Primary Care Nurse Name: Chava Lorenz RN Position: [facility] RN Member Role: Primary Care Nurse Care Team Related Persons Name: MARIBELL GUNDERSON Name: [place] GUNEDRSON Name: JA GUNDERSON Name: BERNABEK, UNKNOWN Insurance Providers Guarantor name: YOVANI GUNDERSON Health Plan Information #: 1 Payer: MEDICARE PART B OUTPT Member Number: [id number] Policy Number: NA Group Number: NA Health Plan Information #: 2 Payer: [facility] Member Number: [id number] Policy Number: NA Group Number: [id number]
--- OUTSIDE RECORDS SUMMARY | 2024-05-21 21:05 | XMS_ITS | Continuity of Care Document ---
Author Organization [facility] Address [address] [place] [address]- [facility] Name Relationship Address Phone NEPTALI, YOVANI Personal Relationship Unknown Unavai lable NEPTALI, [place] spouse Unknown Unavailable NEPTALI, YOVANI Personal Relationship Unknown Unavai lable NEPTALI, MARIBELL child Unknown Unavailable KT, [place] Personal Relationship Unknown Unavai lable NEPTALI, YOVANI Personal Relationship Unknown Unavai lable KT, [place] Personal Relationship Unknown Unavai lable UNK, UNKNOWN Other Unknown Unavailable NEPTALI, JA child Unknown Unavailable Care Team Providers Care Event Marketing Assistant Name Role Phone Blayne Moore MD Primary Care Physician Amandavai lable [id number] Date(s): 04/09/24 - 05/09/24 [facility] [address] [place] [address] Encounter Type: Triage Allergies, Adverse Reactions, Alerts [...] 0 Refills, Maintenance, 03/10/24 8:56:00 AM EDT, [facility]/pharmacy #[id number], Partial fill upon patient request if the [...] Team Personnel Name: Margaux Watters RN Position: [facility] RN Member Role: Primary Care Nurse Name: Rachael Mariee RN Position: [facility] RN Member Role: Primary Care Nurse Name: Mack Spain RN Position: [facility] RN Member Role: Primary Care Nurse Name: Travis Blevins RN Position: [facility] RN Member Role: Primary Care Nurse Name: Jeaneth Landa RN Position: [facility] RN Member Role: Primary Care Nurse Name: Merced Romero RN Position: [facility] RN Member Role: Primary Care Nurse Name: Blayne Moore MD Position: [facility] Physician (General Medicine) Member Role: PCP Name: Cedric Asif RN Position: [facility] RN Member Role: Primary Care Nurse Name: Marta Velez RN Position: [facility] RN Member Role: Primary Care Nurse Name: Kiersten Castillo RN Position: [facility] RN Member Role: Primary Care Nurse Name: Zandra Vera RN Position: [facility] RN Member Role: Primary Care Nurse Name: Gina Pavon RN Position: [facility] RN Member Role: Primary Care Nurse Name: An Thurman RN Position: [facility] ED RN W/OE and Tasks Member Role: Primary Care Nurse Name: Mark Chen RN Position: [facility] RN Member Role: Primary Care Nurse Name: Lisa Aguayo RN Position: [facility] RN Member Role: Primary Care Nurse Name: Brady Mg Position: [facility] Outreach Member Role: Lifetime Consulting Physician Name: Isabel Robles RN Position: [facility] RN Member Role: Primary Care Nurse Name: Nathaniel Danielle MD Position: [facility] Renal MD Member Role: Lifetime Consulting Physician Address: [address] [place] [address] [address] [facility] [address] Telecom: Name: Andreina Garcia RN Position: [facility] RN Member Role: Primary Care Nurse Name: Rizwana Franklin RN Position: [facility] RN Member Role: Primary Care Nurse Name: Stephanie Mcdonald RN Position: [facility] RN Member Role: Primary Care Nurse Name: Sean Freeman RN Position: [facility] RN Member Role: Primary Care Nurse Name: Jorge A Gallo RN Position: [facility] RN Member Role: Primary Care Nurse Name: Chava Lorenz RN Position: [facility] RN Member Role: Primary Care Nurse Care Team Related Persons Name: MARIBELL GUNDERSON Name: [place] GUNDERSON Name: JA GUNDERSON Name: UNK, UNKNOWN Insurance Providers Guarantor name: YOVANI GUNDERSON Health Plan Information #: 1 Payer: MEDICARE PART B OUTPT Member Number: NA Policy Number: NA Group Number: NA Health Plan Information #: 2 Payer: [facility] Member Number: NA Policy Number: NA Group Number: NA
--- OUTSIDE RECORDS SUMMARY | 2024-05-21 21:05 | XMS_ITS | Continuity of Care Document ---
Author Organization [facility] Address [address] [place] [address]- Care Team Providers Care Turkish Line Attendant Name Role Phone Blayne Moore MD Primary Care Physician Unavai lable [id number] Date(s): 04/01/24 - 05/01/24 [facility] [address] [place] [address]- Encounter Type: Triage Allergies, Adverse Reactions, Alerts [...] 0 Refills, Maintenance, 03/10/24 8:56:00 AM EDT, [facility]/pharmacy #[id number], Partial fill upon patient request if the [...] Team Personnel Name: Margaux Watters RN Position: [facility] RN Member Role: Primary Care Nurse Name: Rachael Mariee RN Position: [facility] RN Member Role: Primary Care Nurse Name: Mack Spain RN Position: [facility] RN Member Role: Primary Care Nurse Name: Travis Blevins RN Position: [facility] RN Member Role: Primary Care Nurse Name: Jeaneth Landa RN Position: [facility] RN Member Role: Primary Care Nurse Name: Merced Romero RN Position: [facility] RN Member Role: Primary Care Nurse Name: Blayne Moore MD Position: [facility] Physician (General Medicine) Member Role: PCP Name: Cedric Asif RN Position: [facility] RN Member Role: Primary Care Nurse Name: Marta Velez RN Position: [facility] RN Member Role: Primary Care Nurse Name: Kiersten Castillo RN Position: [facility] RN Member Role: Primary Care Nurse Name: Zandra Vera RN Position: [facility] RN Member Role: Primary Care Nurse Name: Gina Pavon RN Position: [facility] RN Member Role: Primary Care Nurse Name: An Thurman RN Position: [facility] ED RN W/OE and Tasks Member Role: Primary Care Nurse Name: Mark Chen RN Position: [facility] RN Member Role: Primary Care Nurse Name: Lisa Aguayo RN Position: [facility] RN Member Role: Primary Care Nurse Name: Brady Mg Position: [facility] Outreach Member Role: Lifetime Consulting Physician Name: Isabel Robles RN Position: [facility] RN Member Role: Primary Care Nurse Name: Nathaniel Danielle MD Position: [facility] Renal MD Member Role: Lifetime Consulting Physician Address: [address] [place] [address] [address] [facility] [place], [place] [address] Telecom: Name: Andreina Garcia RN Position: [facility] RN Member Role: Primary Care Nurse Name: Rizwana Franklin RN Position: [facility] RN Member Role: Primary Care Nurse Name: Stephanie Mcdonald RN Position: [facility] RN Member Role: Primary Care Nurse Name: Sean Freeman RN Position: [facility] RN Member Role: Primary Care Nurse Name: Jorge A Gallo RN Position: [facility] RN Member Role: Primary Care Nurse Name: Chava Lorezn RN Position: [facility] RN Member Role: Primary Care Nurse Care Team Related Persons Name: MARIBELL GUNDERSON Name: [place] GUNDERSON Name: JA GUNDERSON Name: BERNABEK, UNKNOWN Insurance Providers Guarantor name: YOVANI GUNDERSON Health Plan Information #: 1 Payer: MEDICARE PART B OUTPT Member Number: NA Policy Number: NA Group Number: NA Health Plan Information #: 2 Payer: [facility] Member Number: NA Policy Number: NA Group Number: NA
--- OUTSIDE RECORDS SUMMARY | 2024-05-21 21:05 | XMS_ITS ---
Author Organization [facility] Address [address] [place] [address] Care Team Providers Care Jail Keeper Name Role Phone Danyell Glass Primary Care Provider Angelique Garcia [phone] Encounters Encounter Location Date Provider Diagnosis [facility] [address] [place] [address] 02/04/2024 Angelique Gracia Plan Of Treatment No Information Progress Notes * Doris TAVAREZ MDOB:1950 (74 yo F)Acc No.[id number]:02/04/2024 Progress Note Patient:Doris YE Provider:?Angelique Gracia DPM :1950???Age:74 Y???Sex:Female D ate:02/04/2024 Address:[address] [place], [place] [id number] Pcp:Danyell Glass Subjective: * Chief Complaints: * ??? * Medical History:? Objective: * Vitals:? Assessment: Plan: * Treatment: * Images: * The named appointment provid er may or may not be the originator of this progress note, and it is not deemed complete until electronically signed by the appointment provider. Sign off status: Pending * Provider:?Angelique Gracia DPM Date:?2023 Generated for Jayne pro/Marcela/eTransmitting on:?05/21/2024 09:05 PM EST
--- OUTSIDE RECORDS SUMMARY | 2024-05-21 21:05 | XMS_ITS | Continuity of Care Document ---
Author Organization [facility] Infectious Disease Address [address] [place] [address]- Care Team Providers Care Header Setup Operator Name Role Phone Blayne Moore MD Primary Care Physician Unavai lable [id number]s): 04[facility]17/24 - 05/17/24 [facility] Disease [address] [place] [address] Encounter Type: Triage Allergies, Adverse Reactions, Alerts [...] 0 Refills, Maintenance, 03/10/24 8:56:00 AM EDT, [facility]/pharmacy #[id number], Partial fill upon patient request if the [...] Team Personnel Name: Margaux Watters RN Position: [facility] RN Member Role: Primary Care Nurse Name: Rachael Mariee RN Position: [facility] RN Member Role: Primary Care Nurse Name: Mack Spain RN Position: [facility] RN Member Role: Primary Care Nurse Name: Travis Blevins RN Position: [facility] RN Member Role: Primary Care Nurse Name: Jeaneth Landa RN Position: [facility] RN Member Role: Primary Care Nurse Name: Merced Romero RN Position: S RN Member Role: Primary Care Nurse Name: Blayne Moore MD Position: [facility] Physician (General Medicine) Member Role: PCP Name: Cedric Asif RN Position: [facility] RN Member Role: Primary Care Nurse Name: Marta Velez RN Position: [facility] RN Member Role: Primary Care Nurse Name: Kiersten Castillo RN Position: [facility] RN Member Role: Primary Care Nurse Name: Zandra Vera RN Position: [facility] RN Member Role: Primary Care Nurse Name: Gina Pavon RN Position: [facility] RN Member Role: Primary Care Nurse Name: An Thurman RN Position: [facility] ED RN W/OE and Tasks Member Role: Primary Care Nurse Name: Mark Chen RN Position: [facility] RN Member Role: Primary Care Nurse Name: Lisa Aguayo RN Position: [facility] RN Member Role: Primary Care Nurse Name: Brady Mg Position: [facility] Outreach Member Role: Lifetime Consulting Physician Name: Isabel Robles RN Position: [facility] RN Member Role: Primary Care Nurse Name: Nathaniel Danielle MD Position: [facility] Renal MD Member Role: Lifetime Consulting Physician Address: [address] [place] [address] [address] [facility] [address] [employer]: Name: Andreina Garcia RN Position: [facility] RN Member Role: Primary Care Nurse Name: Rizwana Franklin RN Position: [facility] RN Member Role: Primary Care Nurse Name: Stephanie Mcdonald RN Position: [facility] RN Member Role: Primary Care Nurse Name: Sean Freeman RN Position: [facility] RN Member Role: Primary Care Nurse Name: Jorge A Gallo RN Position: [facility] RN Member Role: Primary Care Nurse Name: Chava Lorenz RN Position: [facility] RN Member Role: Primary Care Nurse Care Team Related Persons Name: MARIBELL GUNDERSON Name: VIR[place] GUNDERSON Name: JA GUNDERSON Name: UNK, UNKNOWN Insurance Providers Guarantor name: YOVANI GUNDERSON Health Plan Information #: 1 Payer: MEDICARE PART B OUTPT Member Number: NA Policy Number: NA Group Number: NA Health Plan Information #: 2 Payer: [facility] Member Number: NA Policy Number: NA Group Number: NA
--- OUTSIDE RECORDS SUMMARY | 2024-05-21 21:05 | XMS_ITS | Continuity of Care Document ---
Author Organization [facility] Infectious Disease Address [address] [place] [address]- Care Team Providers Care Asset Accountant Name Role Phone Not on Staff, PCP Primary Care Physician Unavail able Encounter [facility] Date(s): 03/21/24 - 04/20/24 [facility] Infectious Disease [address] [place] [address] Attending Physician: Kristen Aadms Admitting Physician: AdmKristen garcia Referring Physician: AdmtrKristen Allergies, Adverse Reactions, Alerts Substance Reaction Severity Status doxycycline 1 Unknown Active 1rash Medications acetaminophen 325 mg oral tablet 650 mg, 2, tablet, By Mouth, Every 8 hours, PRN, Refills 0, Maintenance, as needed for fever/pain, 01/18/24 9:23:00 EDT, Partial fill upon patient request if the prescription is for a schedule II opioid drug. Start Date: 01/18/24 Status: Ordered atorvastatin 10 mg oral tablet 1 tablet = 10 mg, By Mouth, Daily, # 30 tablet, 0 Refills, Maintenance, 10/26/23 15:04:00 EDT, Partial fill upon patient request if the prescription is for a schedule II opioid drug. Start Date: 10/26/23 Status: Ordered bisacodyl 10 mg rectal suppository 1 supp = 10 mg, Rectally, Daily, PRN for constipation, 0 Refills, Maintenance, 01/18/24 9:25:00 EDT, Suppository, Partial fill upon patient request if the prescription is for a schedule II opioid drug. Start Date: 01/18/24 Status: Ordered Cardizem CD 120 mg/24 hours oral capsule, extended release 120 mg, By Mouth, Daily, Refills 0, Maintenance, 03/08/24 11:41:00 EDT, Partial fill upon patient request if the prescription is for a schedule II opioid drug. Start Date: 03/08/24 Status: Ordered Eliquis 5 mg oral tablet TAKE 1 TABLET BY MOUTH TWICE A DAY Start Date: 10/26/23 Status: Ordered ferrous sulfate 325 mg oral tablet 1 Unknown, by mouth, 0 Refill(s), 0 Refills, 01/02/24 9:00:00 EDT, Partial fill upon patient request if the prescription is for a schedule II opioid drug. Start Date: 01/02/24 Status: Ordered Fleet Enema 19 gm-7 gm rectal enema 1 each, Rectally, Once, PRN as needed for constipation, 0 Refills, Maintenance, 01/18/24 9:26:00 EDT, Enema, Partial fill upon patient request if the prescription is for a schedule II opioid drug. Start Date: 01/18/24 Status: Ordered furosemide 40 mg oral tablet 180 each, 0 Refill(s), TAKE 1 TABLET BY MOUTH TWICE A DAY, Refills 0, 03/26/24 11:07:00 EDT, Partial fill upon patient request if the prescription is for a schedule II opioid drug. Start Date: 03/26/24 Status: Ordered insulin lispro 100 u/ml subcutaneous injection 2-10 units, Subcutaneous Injection, 3 times a day before meals, << Sliding Scale Comments >> 100 - 149 2 units Call if less than 70 150 - 199 4 units 200 - 249 6 units 250 - 299 8 units 300 - 349 10 units Call if greater than 400 <<... Start Date: 03/08/24 Status: Ordered Lantus Solostar Pen 100 units/mL subcutaneous solution = 6 units, Subcutaneous Injection, Daily at bedtime, 0 Refills, Maintenance, 01/18/24 9:27:00 EDT, Solution, Partial fill upon patient request if the prescription is for a schedule II opioid drug. Start Date: 01/18/24 Status: Ordered metoprolol 25 mg oral tablet 25 mg, 1, tablet, By Mouth, 2 times a day, Refills 0, Maintenance, 10/24/16 9:20:44 Start Date: 10/24/16 Status: Ordered Milk of Magnesia 8% oral suspension 30 mL = 2.4 Gm, By Mouth, Daily at bedtime, PRN for constipation, 0 Refills, Maintenance, 01/18/24 9:38:00 EDT, Suspension, Partial fill upon patient request if the prescription is for a schedule II opioid drug. Start Date: 01/18/24 Status: Ordered Miscellaneous Rx 0 Refills, 100 each, 0 Refill(s), USE TO TEST ONCE DAILY, 03/26/24 11:07:00 EDT Start Date: 03/26/24 Status: Ordered ondansetron 8 mg oral tablet, disintegrating 1 tablet = 8 mg, By Mouth, Every 8 hours, PRN Nausea & Vomiting, 0 Refills, Maintenance, 01/18/24 9:39:00 EDT, Tablet, Partial fill upon patient request if the prescription is for a schedule II opioid drug. Start Date: 01/18/24 Status: Ordered Potassium Chloride (Eqv-K-Tab) 20 mEq oral tablet, extended release 2 tablets, By Mouth, 2 times a day Start Date: 01/18/24 Status: Ordered Readi-Cat 2 Smoothie Leo 2% oral suspension See Instructions, as directed, # 2 each, 0 Refills, Maintenance, 03/10/24 8:56:00 EDT, [facility]/pharmacy#[id number], Partial fill upon patient request if the prescription is for a schedule II opioid drug., as directed, 163, cm, 03/08/24 11:38:00 EDT, Height, 59... Start Date: 03/10/24 Status: Ordered Synjardy XR 25 mg-1000 mg oral tablet, extended release 90 each, 0 Refill(s), TAKE 1 TABLET BY MOUTH EVERY DAY, 0 Refills, 03/26/24 11:07:00 EDT, Partial fill upon patient request if the prescription is for a schedule II opioid drug. Start Date: 03/26/24 Status: Ordered Vitamin C 500 mg oral tablet 1 tablet = 500 mg, By Mouth, Daily, 0 Refills, Maintenance, 01/18/24 9:24:00 EDT, Tablet, Partial fill upon patient request if the prescription is for a schedule II opioid drug. 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 Pancreatic cancer Confirmed Active Social History Social History Type Response Smoking Status Never (less than 100 in lifetime) entered on: 04/01/24 Sex Patient Care team information Care Team Personnel Name: Margaux Watters RN Position: [facility] RN Member Role: Primary Care Nurse Name: Rachael Mariee RN Position: [facility] RN Member Role: Primary Care Nurse Name: Mack Spain RN Position: [facility] RN Member Role: Primary Care Nurse Name: Travis Blevnis RN Position: [facility] RN Member Role: Primary Care Nurse Name: Jeaneth Landa RN Position: [facility] RN Member Role: Primary Care Nurse Name: Merced Romero RN Position: [facility] RN Member Role: Primary Care Nurse Name: Cedric Asif RN Position: [facility] RN Member Role: Primary Care Nurse Name: Marta Velez RN Position: [facility] RN Member Role: Primary Care Nurse Name: Kiersten Castillo RN Position: [facility] RN Member Role: Primary Care Nurse Name: Zandra Vera RN Position: [facility] RN Member Role: Primary Care Nurse Name: Gina Pavon RN Position: [facility] RN Member Role: Primary Care Nurse Name: An Thurman RN Position: [facility] ED RN W/OE and Tasks Member Role: Primary Care Nurse Name: Mark Chen RN Position: [facility] RN Member Role: Primary Care Nurse Name: Not on Staff, PCP Position: [facility] Physician (General Medicine) Member Role: PCP Name: Lisa Aguayo RN Position: [facility] RN Member Role: Primary Care Nurse Name: Brady Mg Position: [facility] Outreach Member Role: Lifetime Consulting Physician Name: Isabel Robles RN Position: [facility] RN Member Role: Primary Care Nurse Name: Nathaniel Danielle MD Position: [facility] Renal MD Member Role: Lifetime Consulting Physician Address: Address: [address] [place] [address] [address] [facility] [address] Name: Andreina Garcia RN Position: [facility] RN Member Role: Primary Care Nurse Name: Rizwana Franklin RN Position: [facility] RN Member Role: Primary Care Nurse Name: Stephanie Mcdonald RN Position: [facility] RN Member Role: Primary Care Nurse Name: Sean Freeman RN Position: [facility] RN Member Role: Primary Care Nurse Name: Jorge A Gallo RN Position: [facility] RN Member Role: Primary Care Nurse Name: Chava Lorenz RN Position: [facility] RN Member Role: Primary Care Nurse Care Team Related Persons Name: MARIBELL GUNDERSON Address: [place] [address] Name: VIRGINIA GUNDERSON Address: home [address] [place] [address] Name: JA GUNDERSON Address: home [address] [place] [address] Name: PASQUALE, ASHLI Address: home [address] [place] [address]. [place]
--- OUTSIDE RECORDS SUMMARY | 2024-05-21 21:06 | XMS_ITS | Data Portability ---
Author Organization [facility], Main Office Address [address] [place] [address] [address] [place] [address] Care Team Providers Care Inclusion Specialist Name Role Phone PRIMO SMITH 1ST FLOOR OTHER Assessment Encounter Date Assessment Date Assessment LastModified by Organization Details LastModified Time 02/02/2017 02/02/2017 Hospital labs wbc=3.6, H/H=8.5/25.3, BUN=49, cre=1.91, bm=530, k+=4.4 [place] Not available 02/02/2017 11:03:08 02/06/2017 02/06/201702/05 wbc=4.0, H/H=9.7/28.2, BUN=60, cre=1.63, if=257, k+=4.4, egfr=31 01/31-WBC-3.3, H/H-9.3/26.3, plts-255, BUN/Cr-50/1.9 1, GFR-26, Na+133, K+3.9 Hospital labs wbc=3.6, H/H=8.5/25.3, BUN=49, cre=1.91, mi=925, k+=4.4 Not available 02/06/2017 14:52:27 02/20/2017 02/20/201702/12 wbc=5.8 hb=9.0 hct=27.9 jv=794 k=4.8 bun=60 cre=1.42 02/19 wbc=7.3, H/H=9.9/29.6, BUN=63, cre=1.55, fa=200, k+=4.6 Not available 02/20/2017 09:23:58 Plan of Treatment Reminders Order Date Submit Date Provider Last Modified By Organization Details Last Modified Time Details Appointments None record ed. Lab None record ed. Referral None record ed. Procedures None record ed. Surgeries None record ed. Imaging None record ed. Medication Orders None record ed. Patient TargetsNo targets recorded. Patient InstructionsNo instructions recorded. Reason for Referral None Reported. 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 2016 Mateo Baldev [place], [facility] 07:58:23 Chronic kidney disease 246886735 Active 2016 Mateo Baldev pat[place], [facility] 7 07:58:28 Diabetic foot ulcer 669558016 Active 2016 Mateo Baldev patel, [facility] 7 07:58:36 Sepsis 18825741 Active 2016 Mateo De Paz [facility], [facility] 7 07:58:43 Hypertensive disorder 97418788 Active 2016 Mateo Rosmeryraymundo jorge, [facility] 7 08:36:52 Congestive heart failure 81952417 Active 2016 Mateo Baldev [place], [facility] 7 08:37:06 Patent foramen ovale 959842611 Active 2016 Pearl Hayes MD [address], [address], [place], [address], [employer] 7 12:05:31 Anemia 926225035 Active 2016 Pearl Hayes MD [address], [address], [place], [address], [employer] 7 12:08:18 Leukopenia 24561571 Active 2016 Pearl Hayes MD [address], [address], [place], [address], [place] [employer] 7 12:08:20 Problem Notes None recorded. Medical Equipment None Reported. Allergies Allergen ID Allergen Name Allergen Category Reaction Reaction Severity Criticality Documentation Date Start Date Code Code System Note Provider Name and Address Organization Details Recorded Time 7878 doxycycli ne Not available rash Not available Not available 02/02/2017 3640 RxNorm Pearl Hayes MD [address], [address], [place], [address], [facility] [employer] 7 11:28:53 Vitals None Recorded Social History Question Answer Notes LastModified by Organizat ion Details LastModified Time Tobacco Smoking Status Never Smoker Not Available [employer] 04/06/2020 03:13:04 Do You Have An Advance Directive? Yes [id number] Information not available 04/06/2020 Do You Have A Medical Power Of Inspector [place]? Yes [id number] Information not available 04/06/2020 What Was The Date Of Your Most Recent Tobacco Screening? 02/02/2017 [id number] Information not available 04/06/2020 Sex: Unknown Functional Status None recorded. Mental Status None recorded. Family History Nothing Reported. Medical History No medical history recorded. Gynecological HistoryNo gynecological history recorded. Obstetrics History GPAL:G 0 P 0 0 0 0 Past Encounters Encounter ID Performer Location Encounter Start Date Encounter Closed Date Diagnosis/Indication Diagnosis SNOMED-CT Code Diagnosis ICD10 Code [id number] Mateo De Paz PRIMO SARAH [address] [place] [address] 01/31/2017 08:00:04 02/06/2017 13:09:35 Sepsis 73091525 A40.8 Diabetic foot ulcer 3710 24626 L97.512 Chronic ki dney disease 871803847 N18.3 Renal vasculitis 1951313 0 I77.89 Atrial fibrillation 4943 6004 I48.0 Diabetes mellitus 238698 09 E11.622 Hypertensive disorder 38 025685 I10 Congestive heart failure 65402507 I50.31 Patent foramen ovale 204 778183 Q21.1 [id number] MD PRIMO Morrison SARAH [address] [place] [address] 02/02/2017 11:00:52 02/06/2017 12:54:06 Diabetic foot ulcer 978741728 L97.512 Diabetes mellitus 359535 09 E11.622 Renal vasculitis 7678876 0 I77.89 N08 Atrial fibrillation 4943 6004 I48.0 Hypertensive disorder 38 347146 I10 Congestive heart failure 03067963 I50.31 Patent foramen ovale 204 671563 Q21.1 Cellulitis of lower limb 261977916 L03.115 Leukopenia 14353569 D70. 2 Anemia 522225742 D64.89 [id number] Mateo Baldev [address] [address] 02/06/2017 14:45:00 02/08/2017 15:44:22 Diabetic foot ulcer 292676422 L97.512 Cellulitis of lower limb 292884193 L03.115 [id number] Mike Story MD [address] [address] 02/15/2017 13:25:47 02/20/2017 08:34:08 Diabetic foot ulcer 824365711 L97.512 Diabetes mellitus 030682 09 E11.622 Atrial fibrillation 4943 6004 I48.0 Congestive heart failure 57000880 I50.31 [id number] Mateo Botelloraymundo [address] [address] 02/20/2017 09:21:44 02/21/2017 11:35:20 Diabetic foot ulcer 590863957 L97.512 Diabetes mellitus 148793 09 E11.622 Atrial fibrillation 4943 6004 I48.0 Congestive heart failure 20901808 I50.31 [id number] Mike Story MD [address] [address] 02/26/2017 10:10:46 03/01/2017 11:56:46 Diabetic foot ulcer 319083973 L97.512 Diabetes mellitus 800345 09 E11.622 Renal vasculitis 0765162 0 I77.89 N08 Atrial fibrillation 4943 6004 I48.0 Hypertensive disorder 38 677397 I10 Congestive heart failure 52257254 I50.31 Anemia 093760362 D64.89 Health Concerns Section Related Observation LastModified by Organization Detai ls LastModified Time None Recorded Concern Status LastModified by Organization Details LastModified Time None Recorded Advance Directives Directive Y: Payers Encounter Date Sequence Insurance Name Policy Number Policy Castro Covered Member ID Castro Member ID Guarantor Name 02/02/2017 1 [employer] [id number] 1 Doris M Corby [id number] Doris Corby 02/06/2017 1 [employer] [id number] 1 Doris M Corby [id number] Doris Corby 02/15/2017 1 [employer] [id number] 1 Doris M Corby [id number] Doris Corby 02/20/2017 1 [employer] [id number] 1 Doris M Corby [id number] Doris Corby 02/26/2017 1 [employer] [id number] 1 Doris M Corby [id number] Doris Cor[place] Notes Date Note Type Note Provider Name and Address Organization Details Recorded Time 02/02/2017 text/html This is a 67 yo woman who is here for rehab after an acute hospitalization for rapid afib and renal vasculitis causing glomerulonephritis. She presented to [facility] on 01/27 with weakness and worsening LE edema. She had been taken off of her norvasc on 01/25, at PCP visit, due to the edema, she was also started on lantus at that time due to elevated sugars. She has a hx of renal vasculitis and was on cyclophosphamide and prednisone for this. In ED she was noted to be in Afib (known, started in 1997) with a HR in the 170s. It was also thought that she was likely septic as her right LE, which has a diabetic foot ulcer, looked redder and was warmer than the left . She was given IV cardizem and Lasix as well as started on Lovenox, vanco, and zosyn. CT of foot was negative for osteomyelitis and ID recommended dc of abx. Her cytoxan was held while she was thought to be septic, and not yet restarted. Her edema recovered well and she was transitioned to oral Lasix. Her Lantus was increased from 10U to 15U the day before arrival for blood sugars over 300 (on Prednisone). Her PMH is also significant for CHF, afib, and patent foramen ovale (although echo in hospital did not note this, it was apparently seen on echo in 2008). She says she continues to feel weak, but is able to do exercises in bed, also the redness of the right LE has not improved at all and there is still severe tenderness. Pearl Hayes MD [address] [facility], [address], [place], [address], [employer] 02/02/2017 12:08:54 02/06/2017 text/html This is a 67 yo female admit with a PMH significant for DM, CKD, CHF, afib, renal vasculitis, and patent foramen ovale. Seen today to follow up on possible cellulitis treated with clindamycin. Mateo patel [employer] 02/06/2017 15:00:55 02/15/2017 text/html Reevaluation of patient initially admit after hospitalization for rapid afib and renal vasculitis causing glomerulonephritis, followed by vascular and nephrology as out patient. Her edema improved with aggressive diuresis and now maintained on PO lasix. Lantus was increased from 10U to 15U in hospital. blood glucose monitored at facility. Patient is improving with PT OT and now ambulating with walker, still fall risk. Wound care to right foot, Wound care consulted Mike Story MD [address], [address], [place], [address], [employer] 02/15/2017 13:35:35 02/20/2017 text/html This is a 67 yo female admit with a PMH significant for DM, CKD, CHF, afib, renal vasculitis, and patent foramen ovale. Seen today for acute visit. Mateo patel [employer] 02/20/2017 09:27:39 02/26/2017 text/html Patient is a 67 yo female preparing for discharge home. Initially admit post hospitalization for rapid afib and renal vasculitis causing glomerulonephritis. She presented to [facility] on 01/27 with weakness and worsening LE edema. She had been taken off of her norvasc on 01/25, at PCP visit, due to the edema, she was also started on lantus at that time due to elevated sugars. She has a hx of renal vasculitis and was on cyclophosphamide and prednisone for this. In ED she was noted to be in Afib (known, started in 1997) with a HR in the 170s. It was also thought that she was likely septic as her right LE, which has a diabetic foot ulcer, looked redder and was warmer than the left . She was given IV cardizem and Lasix as well as started on Lovenox, vanco, and zosyn. CT of foot was negative for osteomyelitis and ID recommended dc of abx. Her edema improved and she was transitioned to oral Lasix. 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 will check B12 and folate prior to discharge with results to PCP Mike Story MD [address] [place] [address], [address], [place], [address], [facility] 02/26/2017 10:24:53 OBGyn Episode No OBEpisode recorded.
--- OUTSIDE RECORDS SUMMARY | 2024-05-21 21:06 | XMS_ITS | Patient Health Record ---
[facility] [address] [place] [address] Care Team Providers Care Credit And Collections Representative Name Role Phone Danyell Glass Primary Care Provider Unavailcharlie e Black, Angelique Unavailable [phone] Allergies Allergen (clinical drug ingredient) Drug/Non Drug Allergy documented on EMR Reaction Allergy Type Onset Date Status doxycycline Doxycycline Rash Drug Allergy Act jeri Results Component Value Reference Range Notes X ray : Foot, right 3V Reviewed date:09/03/2023 01:03:04 PM Interpretation:See Examination above Performing Lab: Notes/Report: See Examination above HEMOGLOBIN A1C (GLYCOHEMOGLO BIN) Reviewed date:06/14/2023 01:41:13 PM Interpretation: Performing Lab: Notes/Report: HEMOGLOBIN A1C (HH) 6.1 Reason For Referral No Information Medications Medication SIG (Take, Route, Frequency, Duration) Notes Start Date End Date Status Synjardy XR 25-1000 MG 1 tablet with олег akfast Orally Once a day Active Bactrim DS 800-160 MG 1 tablet Orally Tw ice a day for 10 day(s) 04/20/2022 Not-Taking Extra Depth Orthopedic Shoes (1 Pair) with Customized Heat Molded Multidensity Innersoles (3 Pair) as directed Dx: NIDDM/Polyneuropathy (E11.42), Hammertoe Foot Deformity (M20.41,M20.42), Preulcerative Skin Lesion(s) (L85.1 12/01/2019 Not-Taking Gabapentin 300 MG 1 capsule Orally at bedtime for 10 days 07/06/2022 Not-Taking Extra Depth Orthopedic Shoes (1 Pair) with Customized Heat Molded Multidensity Innersoles (3 Pair) as directed Dx: NIDDM/Polyneuropathy (E11.42), Hammertoe Foot Deformity (M20.41,M20.42), Preulcerative Skin Lesion(s) (L85.1 05/02/2021 Not-Taking Acetaminophen Extra Strength 500 MG 1 tablet as needed Orally every 6 hrs for 14 days 07/06/2022 Not-Taking levoFLOXacin 750 MG 1 tablet Orally Once a day for 10 day(s) 07/06/2022 Not-Taking Bactrim DS 800-160 MG 1 tablet Orally Tw ice a day for 10 day(s) 06/19/2022 Not-Taking Clindamycin HCl 300 MG 1 capsule Orally every 12 hrs for 7 day(s) 06/27/2022 Not-Taking Basaglar KwikPen 100 UNIT/ML as directed Subcutaneous Not -Taking Rayaldee 30 MCG 1 capsule at bedtime Orally Once a day for 30 day(s) Not-Taking Vitamin D 50 MCG (2000 UT) 1 tablet Orally Not-Taking levoFLOXacin 750 MG 1 tablet Orally Once a day for 10 day(s) 09/03/2023 Not-Taking Bactrim DS 800-160 MG 1 tablet Orally Tw ice a day for 10 day(s) 02/05/2023 Not-Taking Extra Depth Orthopedic Shoes (1 Pair) with Customized Heat Molded Multidensity Innersoles (3 Pair) as directed Dx: NIDDM/Polyneuropathy (E11.42), Hammertoe Foot Deformity (M20.41,M20.42), Preulcerative Skin Lesion(s) (L85.1 Active Medihoney Ca Alginate 2 x2 - as directed Externally 05/10/2023 Activ e Furosemide 40 MG 1 tablet Orally twic e a day Active Folic Acid-Vit B6-Vit B12 1 tablet Orally Once a day Not-Taking Metoprolol Tartrate 37.5 MG 1 tablet with food Orally Twice a day for 30 day(s) Active dilTIAZem HCl ER Beads 240 MG 1 capsule Orally Once a day for 30 day(s) Active Bactrim DS 800-160 MG 1 tablet Orally Tw ice a day for 10 day(s) 09/27/2020 Not-Taking Eliquis 5 MG as directed Orally t wice a day Active Bactrim DS 800-160 MG 1 tablet Orally Tw ice a day for 10 day(s) 06/17/2020 Not-Taking Gabapentin 300 MG 1 capsule Orally Onc e at bedtime for 30 day(s) 09/16/2020 Not-Taking Atorvastatin Calcium 10 MG 1 tablet Orally Once a day for 30 day(s) Active Acetaminophen Extra Strength 500 MG 1 tablet as needed Orally every 6 hrs for 14 days 09/16/2020 Not-Taking Cephalexin 500 MG 1 capsule Orally BID for 10 days 12/23/2020 Not-Taking Immunizations Vaccine Route Administration Date Status Comme nts COVID-19 Pfizer BioNTech Vaccine Unknown 08/31/2020 Administered Second Dose:09/19/2020 Influenza Unknown 02/10/2019 Administered Influenza Unknown 03/23/2022 Administered Influenza Unknown 03/16/2023 Administered Social History Tobacco Use: Social History Observation Description Date Details (start date - stop date) Never Smoker NA - NA Tobacco Use/Smoking Question Answer Notes Are you a: nonsmoker Additional Findings: Tobacco Non-User Current no n-smoker Alcohol Screen Question Answer Notes Did you have a drink containing alcohol in the p ast year? No Points 0 Interpretation Negative Tobacco use other than smoking: Question Answer Notes Are you an other tobacco user? No Problems Problem Type SNOMED Code ICD Code Onset Dates Problem Status W/U Status Risk Notes Problem Ulcer of foot (72857722) Non-pressure chronic ulcer of other part of right foot with fat layer exposed (L97.512) Active confirmed Problem Diabetic foot ulcer (101415951) Non-pressure chronic ulcer of other part of right foot limited to breakdown of skin (L97.511) Active confirmed Problem Acquired hammer toe of left foot (543876226407616 3) Other hammer toe(s) (acquired), left foot (M20.42) Active confirmed Problem Polyneuropathy due to type 2 diabetes mellitus (193073452) Type 2 diabetes mellitus with diabetic polyneuropathy (E11.42) Active confirmed Problem Joint contracture of the ankle and/or foot (137468183) Flexion contracture of joint of right foot (M24.574) Active confirmed Problem Acquired deformity of right foot (633807290547354 00) 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) Active confirmed Problem Acquired deformity of left foot (679989680225735 04) PlantarFlexion of metatarsal of left foot (M21.6X2) Active confirmed Problem Joint contracture of the ankle and/or foot (219901001) Flexion contracture of joint of left foot (M24.575) Active confirmed Problem Neuropathic ulcer of right foot (disorder) (917557338330832 02) Neuropathic ulcer of right foot, limited to breakdown of skin (L97.511) Active confirmed Response to treatment,, Response to treatment - Unchanged Problem 617907374 Neuropathic ulcer with fat layer exposed (L98.492) Active confirmed Resolved,No napplicable Vital Signs Height 5ft 4in in 10/15/2023 Weight 151 lbs 10/15/2023 BMI 25.92 kg/m2 10/15/2023 Procedures Procedure Date Ordered Date Performed Result Body Sit e 61209- Debride <25 sq cm 07/02/2023 N/A 54893-BNBEIBQ SKIN/TISSUE 07/02/2023 N/A 19626- Debride <25 sq cm 07/26/2023 N/A 20182- Debride <25 sq cm 08/13/2023 N/A 41182-PNXPTBY SKIN/TISSUE 09/03/2023 N/A 78194-MHXLBCN SKIN/TISSUE 09/24/2023 N/A 81748-RSXUDNB NAIL, 6 OR MORE 10/15/2023 N/A 77389-JYEA SKIN LESIONS, OVER 4 10/15/2023 N/A Encounters Encounter Location Date Provider Diagnosis [address] [address] 06/14/2023 Angelique Black Neuropathic ulcer of right foot, limited to breakdown of skin L97.511 ; Type 2 diabetes mellitus with diabetic polyneuropathy E11.42 ; Tinea unguium B35.1 ; Neuropathic ulcer with fat layer exposed L98.492 and Hammer toe of right foot M20.[address] [address] 07/02/2023 Angelique Black Neuropathic ulcer of right foot, limited to breakdown of skin L97.511 ; Type 2 diabetes mellitus with diabetic polyneuropathy E11.42 and Neuropathic ulcer with fat layer exposed L98.[address] [address] 07/26/2023 Angelique Black Type 2 diabetes mellitus with diabetic polyneuropathy E11.42 and Neuropathic ulcer with fat layer exposed L98.[address] [address] 08/13/2023 Angelique Black Neuropathic ulcer of right foot, limited to breakdown of skin L97.511 and Type 2 diabetes mellitus with diabetic polyneuropathy E11.[address] [address] 09/03/2023 Angelique Black Type 2 diabetes mellitus with diabetic polyneuropathy E11.42 ; Flexion deformity, right ankle and toes M21.271 ; Cellulitis of foot L03.119 and Neuropathic ulcer with fat layer exposed L98.[address] [address] 09/24/2023 Angelique Black Type 2 diabetes mellitus with diabetic polyneuropathy E11.42 and Neuropathic ulcer with fat layer exposed L98.[address] [address] 10/15/2023 Angelique Black Type 2 diabetes mellitus with diabetic polyneuropathy E11.42 ; Neuropathic ulcer with fat layer exposed L98.492 and Tinea unguium B35.[address] [address] 09/03/2023 Angelique Black [address] [address] 09/03/2023 Angelique Black [address] [address] 10/01/2023 Angelique Black [address] [address] 10/15/[address] [facility] [address] 01/31/2024 Angelique Black Assessments Encounter Date Diagnosis (ICD Code) Assessment Notes Treatment Notes Treatment Clinical Notes Section Notes 06/14/2023 Type 2 diabetes mellitus with diabetic polyneuropathy (ICD-10 - E11.42) 06/14/2023 Neuropathic ulcer of right foot, limited to breakdown of skin (ICD-10 - L97.511) Response to treatment,,Resp onse to treatment - Unchanged Patient Educated with: WOUND CARE INSTRUCTIONS. pdf (WOUND CARE INSTRUCTIONS. pdf) Patient Educated with: WOUND CARE INSTRUCTIONS. pdf (WOUND CARE INSTRUCTIONS. pdf) 07/02/2023 Type 2 diabetes mellitus with diabetic polyneuropathy (ICD-10 - E11.42) 07/02/2023 Neuropathic ulcer of right foot, limited to breakdown of skin (ICD-10 - L97.511) Response to treatment,,Resp onse to treatment - Unchanged Patient Educated with: WOUND CARE INSTRUCTIONS. pdf (WOUND CARE INSTRUCTIONS. pdf) Patient Educated with: WOUND CARE INSTRUCTIONS. pdf (WOUND CARE INSTRUCTIONS. pdf) 07/26/2023 Type 2 diabetes mellitus with diabetic polyneuropathy (ICD-10 - E11.42) 07/26/2023 Neuropathic ulcer with fat layer exposed (ICD-10 - L98.492) Patient Educated with: WOUND CARE INSTRUCTIONS. pdf (WOUND CARE INSTRUCTIONS. pdf) 08/13/2023 Type 2 diabetes mellitus with diabetic polyneuropathy (ICD-10 - E11.42) 08/13/2023 Neuropathic ulcer of right foot, limited to breakdown of skin (ICD-10 - L97.511) Response to treatment,,Resp onse to treatment - Unchanged Patient Educated with: WOUND CARE INSTRUCTIONS. pdf (WOUND CARE INSTRUCTIONS. pdf) Patient Educated with: WOUND CARE INSTRUCTIONS. pdf (WOUND CARE INSTRUCTIONS. pdf) 09/03/2023 Flexion deformity, right ankle and toes (ICD-10 - M21.271) 09/03/2023 Type 2 diabetes mellitus with diabetic polyneuropathy (ICD-10 - E11.42) 09/24/2023 Type 2 diabetes mellitus with diabetic polyneuropathy (ICD-10 - E11.42) 09/24/2023 Neuropathic ulcer with fat layer exposed (ICD-10 - L98.492) 10/15/2023 Type 2 diabetes mellitus with diabetic polyneuropathy (ICD-10 - E11.42) 10/15/2023 Neuropathic ulcer with fat layer exposed (ICD-10 - L98.492) 06/14/2023 Tinea unguium (ICD-10 - B35.1) 10/15/2023 Tinea unguium (ICD-10 - B35.1) 09/03/2023 Cellulitis of foot (ICD-10 - L03.119) 07/02/2023 Neuropathic ulcer with fat layer exposed (ICD-10 - L98.492) Resolved,Nonapp licable 06/14/2023 Neuropathic ulcer with fat layer exposed (ICD-10 - L98.492) Resolved,Nonapp licable 09/03/2023 Neuropathic ulcer with fat layer exposed (ICD-10 - L98.492) 06/14/2023 Hammer toe of right foot (ICD-10 - M20.41) 07/26/2023 Other Plan Of Treatment Pending Test Test Name Order Date *Wound Culture 06/17/2020 *Wound Culture 06/19/2022 *Wound Culture 09/03/2023 29044-XKMGJKK NAIL, 6 OR MORE 04/02/2023 37445-XXUYIMP NAIL, 6 OR MORE 01/16/2022 62490-VJKHXMH NAIL, 6 OR MORE 03/30/2022 10764-SQNJJHP NAIL, 6 OR MORE 06/19/2022 42438-JBNNVKY NAIL, 6 OR MORE 09/21/2022 76276-BHCQXXE NAIL, 6 OR MORE 10/04/2020 64897-VJRWNJX NAIL, 6 OR MORE 01/31/2021 49096-SLZLVVP NAIL, 6 OR MORE 05/02/2021 74819-XIQAYUK NAIL, 6 OR MORE 08/18/2021 07418-ZMSQLAS NAIL, 6 OR MORE 10/27/2021 42202-UYBLUDV NAIL, 6 OR MORE 10/15/2023 59489- Debride <25 sq cm 01/16/2022 63045- Debride <25 sq cm 10/27/2021 33234- Debride <25 sq cm 08/18/2021 29584- Debride <25 sq cm 05/02/2021 30756- Debride <25 sq cm 11/01/2020 09908- Debride <25 sq cm 11/25/2020 66329- Debride <25 sq cm 12/23/2020 44701- Debride <25 sq cm 08/23/2020 61322- Debride <25 sq cm 01/31/2021 76227- Debride <25 sq cm 04/08/2020 20466- Debride <25 sq cm 04/29/2020 24835- Debride <25 sq cm 05/20/2020 96316- Debride <25 sq cm 10/12/2022 38936- Debride <25 sq cm 11/16/2022 77676- Debride <25 sq cm 12/04/2022 32710- Debride <25 sq cm 03/30/2022 25543- Debride <25 sq cm 04/20/2022 74812- Debride <25 sq cm 05/08/2022 09879- Debride <25 sq cm 05/22/2022 34691- Debride <25 sq cm 04/19/2023 70051- Debride <25 sq cm 05/10/2023 76794- Debride <25 sq cm 03/08/2023 04837- Debride <25 sq cm 03/22/2023 16958- Debride <25 sq cm 04/02/2023 89072- Debride <25 sq cm 08/10/2022 49780- Debride <25 sq cm 07/02/2023 50093- Debride <25 sq cm 07/26/2023 56445- Debride <25 sq cm 08/13/2023 23644-NPIECAY SKIN/TISSUE 09/03/2023 36546-RGNFDZY SKIN/TISSUE 09/24/2023 46533-NUYUKYX SKIN/TISSUE 07/02/2023 37111-FJEDIOY SKIN/TISSUE 06/19/2022 28331-RXXAZNU SKIN/TISSUE 02/05/2023 29185-CTDFRYL SKIN/TISSUE 02/19/2023 66222-XFUEDLC SKIN/TISSUE 03/30/2022 72260-LPOCBNC SKIN/TISSUE 04/20/2022 20583-HEHETSL SKIN/TISSUE 06/17/2020 12203-XKEKLUD SKIN/TISSUE 07/08/2020 79802-OVWSSVW SKIN/TISSUE 07/29/2020 42770-RRKEKDP SKIN/TISSUE 12/22/2019 88030-JRQDBBL SKIN/TISSUE 01/12/2020 25093-BVJGOSZ SKIN/TISSUE 02/02/2020 04629-DWXDAWZ SKIN/TISSUE 12/01/2019 31918-NUPZUAB SKIN/TISSUE 02/23/2020 32302-XBIFKIF SKIN/TISSUE 03/15/2020 64430-YOQMPAC SKIN/TISSUE 04/08/2020 82882 I&D ABSCESS- SIMPLE,SINGLE 021 83445-RVFJ SKIN LESIONS, OVER 4 02/01/20 21 40676-NOYQ SKIN LESIONS, OVER 4 10/05/19 39694-FKXK SKIN LESIONS, OVER 4 05/02/20 93616-CVMN SKIN LESIONS, OVER 4 08/19/19 47288-EZRQ SKIN LESIONS, OVER 4 10/28/19 11932-TIPE SKIN LESIONS, OVER 4 01/17/20 68512-DFVH SKIN LESIONS, OVER 4 12/01/19 60949-KJRF SKIN LESIONS, OVER 4 02/02/20 20 30394-FZYX SKIN LESIONS, OVER 4 04/08/20 20 62379-DHNA SKIN LESIONS, OVER 4 06/17/19 25874-BHHW SKIN LESIONS, OVER 4 06/19/19 65459-HXGJ SKIN LESIONS, OVER 4 03/30/20 61172-CPQM SKIN LESIONS, OVER 4 10/15/19 24 33227-RBLP SKIN LESIONS, OVER 4 09/22/19 23 64364-DFXP SKIN LESIONS, 2 TO 4 04/02/20 23 G9851-EUSNOFZU DYSTROPHIC NAILS ANY # C3994-TRJYXTKC DYSTROPHIC NAILS ANY # M7699-TSGPSQLD DYSTROPHIC NAILS ANY # T7120-NWSZSCCH DYSTROPHIC NAILS ANY # 34712 - Tenotomy, open flexor 01/06/2021 57366 - Tenotomy, open flexor 01/20/2021 89822 - Tenotomy, open flexor 02/02/2022 Insurance Providers Payer Name Payer Address Payer Phone Subscriber Number Group Number Insured Name Patient Relationship to Insured Coverage Start Date Coverage End Date Medicare National [facility] [address] [facility] [place] [address] [phone] [id number] Corby, Doris Self - patient is the insured [employer]) [address] [place] [address] [id number] Corby, Doris Self - patient is the insured Medical (General) History Medical History History ICD Code Cancer Diabetic Gall bladder Headaches/Migraines Heart disease High blood pressure Kidney disease ulcer- skin Measles Mumps Chicken pox Diverticulitis Surgical History Surgery Date(Month/Year) gall bladder removed cancer surgery- Nose Excision of met head 3rs right/Debrideme nt of ulcer right 09/22/2020 Excision 4th met head and skin lesion le ft foot 07/19/2022 Hospitalization History Reason Date(Month/Year) XMO-Hwjfkuxtfkklrt-[facility] only not admitted 12/12/2019 [facility]- blood sugar, biopsy 09/2023
== END 2024-05-20 13:08 | disposition home or self-care (01) ==
PROVIDERS: PCP Internal Medicine; Visit Provider Physician Assistant
DX: S32.9XXA Fracture of unspecified parts of lumbosacral spine and pelvis, initial encounter for closed fracture (principal); S32.592A Other specified fracture of left pubis, initial encounter for closed fracture
CPT/HCPCS: 99213

== ENCOUNTER 2024-05-20 14:23 | Outpatient (REF) | payer MEDICARE, OTHER, SELFPAY ==
--- NOTE | ~2024-05-20 | XR_ITS ---
EXAMINATION: XR PELVIS CLINICAL INFORMATION: Pain in unspecified hip M25.559. COMPARISON: CT Abdomen pelvis 04/19/2024 TECHNIQUE: AP view of the pelvis. FINDINGS: Redemonstrated mildly displaced fracture of the superior left acetabulum/lateral aspect of the left superior pubic ramus. Mild callus formation. Healing left inferior pubic ramus fracture, with callus formation. Borderline bilateral hip joint space narrowing. Symphysis pubis is intact. Spondylosis in the visualized spine. No new acute fractures. Stent and surgical clips projected over the abdomen. XR/XR pelvis 1-2V IMPRESSION: Stable alignment of the left superior acetabulum/lateral aspect of the superior pubic ramus with healing changes. Healing left inferior pubic ramus fracture. Study is assigned/presented to me for interpretation on Jun 26, 2024 Electronically signed by: Carl Kolb MD 06/26/2024 04:21 PM [facility]
--- OUTSIDE RECORDS SUMMARY | 2024-05-22 02:49 | XMS_ITS ---
Author Organization [facility] Address [address] [place] [address] Care Team Providers Care Clinic Charge Nurse Name Role Phone Danyell Glass Primary Care Provider Maninder Gracia, Angelique Unavailable [phone] REASON FOR VISIT cx 02/03 Encounters Encounter Location Date Provider Diagnosis [facility] [address] [place] [address] 01/31/2024 Angelique Black Plan Of Treatment No Information Progress Notes * Doris TAVAREZ MDOB:1950 (74 yo F)Acc No.[id number]:01/31/2024 Patient:?Doris Tavarez :1950???Age:74 Y???Sex:Female Address:[address] [place] [address] [place], [address] * true * Date:? Generated for Johnniei inocencia/Marcela/eTransmitting on:?05/22/2024 02:49 AM EST
--- OUTSIDE RECORDS SUMMARY | 2024-05-22 02:49 | XMS_ITS ---
Author Organization [facility] Address [address] [place] [address] Care Team Providers Care Shop Mechanic Helper Name Role Phone Danyell Glass Primary Care Provider Angelique Garcia [phone] Encounters Encounter Location Date Provider Diagnosis [facility] [address] [place] [address] 02/04/2024 Angelique Gracia Plan Of Treatment No Information Progress Notes * Doris TAVAREZ MDOB:1950 (74 yo F)Acc No.[id number]:02/04/2024 Progress Note Patient:Doris YE Provider:?Angelique Gracia DPM :1950???Age:74 Y???Sex:Female D ate:02/04/2024 Address: [id number] Pcp:Danyell Glass Subjective: * Chief Complaints: * ??? * Medical History:? Objective: * Vitals:? Assessment: Plan: * Treatment: * Images: * The named appointment provid er may or may not be the originator of this progress note, and it is not deemed complete until electronically signed by the appointment provider. Sign off status: Pending * Provider:Chinedu Gracia DPM Date:?2023 Generated for Jayne pro/Marcela/eTransmitting on:?05/22/2024 02:49 AM EST
--- OUTSIDE RECORDS SUMMARY | 2024-05-22 02:50 | XMS_ITS ---
Author Organization [facility] Address [address] [place] [address] Care Team Providers Care Patient Access Manager Name Role Phone Danyell Glass Primary Care Provider Angelique Garcia [phone] REASON FOR VISIT CX per Dr Gracia Encounters Encounter Location Date Provider Diagnosis [facility] [address] [place] [address] 11/08/2023 Angelique Gracia Plan Of Treatment No Information Progress Notes * NEPTALI Doris MDOB:1950 (74 yo F)Acc No.[id number]:11/08/2023 Progress Notes Patient:Doris YE Provider:?Angelique Gracia DPM :1950???Age:73 Y???Sex:Female D ate:11/08/2023 Address:[address] [place] [address] [id number] Pcp:Danyell Glass Subjective: * Chief Complaints: * [...] Provider:?Angelique Gracia DPM Date:?2023 Generated for Printi inocencia/Faelyg/eTransmitting on:?05/22/2024 02:49 AM EST
--- OUTSIDE RECORDS SUMMARY | 2024-05-22 02:50 | XMS_ITS | Patient Health Record ---
[facility] Address [address] [facility] [place] [address] Care Team Providers Care Hand Box Coverer Name Role Phone Danyell Glass Primary Care Provider Unavailcharlie e Black, Angelique Unavailable [phone] Allergies Allergen (clinical drug ingredient) Drug/Non Drug [...] Status Risk Notes Problem Ulcer of foot (21664870) Non-pressure chronic ulcer of other part of right foot with fat layer exposed (L97.512) Active confirmed Problem Diabetic foot ulcer (377788520) Non-pressure chronic ulcer of other part of right foot limited to breakdown of skin (L97.511) Active confirmed Problem Acquired hammer toe of left foot (187924719941800 3) Other hammer toe(s) (acquired), left foot (M20.42) Active confirmed Problem Polyneuropathy due to type 2 diabetes mellitus (990946968) Type 2 diabetes mellitus with diabetic polyneuropathy (E11.42) Active confirmed Problem Joint contracture of the ankle and/or foot (160137563) Flexion contracture of joint of right foot (M24.574) Active confirmed Problem Acquired deformity of right foot (418670626603825 00) 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) Active confirmed Problem Acquired deformity of left foot (977609047288082 04) PlantarFlexion of metatarsal of left foot (M21.6X2) Active confirmed Problem Joint contracture of the ankle and/or foot (066832455) Flexion contracture of joint of left foot (M24.575) Active confirmed Problem Neuropathic ulcer of right foot (disorder) (084751207446400 02) Neuropathic ulcer of right foot, limited to breakdown of skin (L97.511) Active confirmed Response to treatment,, Response to treatment - Unchanged Problem 102433134 Neuropathic ulcer with fat layer exposed (L98.492) Active confirmed Resolved,No napplicable Vital Signs Height 5ft 4in in 10/15/2023 Weight 151 lbs 10/15/2023 BMI 25.92 kg/m2 10/15/2023 Procedures Procedure Date Ordered Date Performed Result Body Sit e 89728- Debride <25 sq cm 07/02/2023 N/A 17030-VVRFRUW SKIN/TISSUE 07/02/2023 N/A 67865- Debride <25 sq cm 07/26/2023 N/A 08900- Debride <25 sq cm 08/13/2023 N/A 41407-BIUGRWD SKIN/TISSUE 09/03/2023 N/A 32807-AVKDXRY SKIN/TISSUE 09/24/2023 N/A 68734-FRLFZNH NAIL, 6 OR MORE 10/15/2023 N/A 60145-EKUO SKIN LESIONS, OVER 4 10/15/2023 N/A Encounters Encounter Location Date Provider Diagnosis [address] [address] 06/14/2023 Angelique Black Neuropathic ulcer of right foot, limited to breakdown of skin L97.511 ; Type 2 diabetes mellitus with diabetic polyneuropathy E11.42 ; Tinea unguium B35.1 ; Neuropathic ulcer with fat layer exposed L98.492 and Hammer toe of right foot M20.[address] [address] 07/02/2023 Angelique Black Neuropathic ulcer of right foot, limited to breakdown of skin L97.511 ; Type 2 diabetes mellitus with diabetic polyneuropathy E11.42 and Neuropathic ulcer with fat layer exposed L98.[address] [address] 07/26/2023 Angelique Black Type 2 diabetes mellitus with diabetic polyneuropathy E11.42 and Neuropathic ulcer with fat layer exposed L98.[address] [address] 08/13/2023 Angelique Black Neuropathic ulcer of right foot, limited to breakdown of skin L97.511 and Type 2 diabetes mellitus with diabetic polyneuropathy E11.[address] [address] 09/03/2023 Angelique Black Type 2 diabetes mellitus with diabetic polyneuropathy E11.42 ; Flexion deformity, right ankle and toes M21.271 ; Cellulitis of foot L03.119 and Neuropathic ulcer with fat layer exposed L98.[address] [address] 09/24/2023 Angelique Black Type 2 diabetes mellitus with diabetic polyneuropathy E11.42 and Neuropathic ulcer with fat layer exposed L98.[address] [address] 10/15/2023 Angelique Black Type 2 diabetes mellitus with diabetic polyneuropathy E11.42 ; Neuropathic ulcer with fat layer exposed L98.492 and Tinea unguium B35.[address] [address] 09/03/2023 Angelique Black [address] [address] 09/03/2023 Angelique Black [address] [address] 10/01/2023 Angelique Black [address] [address] 10/15/2023 [facility] [address] 01/31/2024 Angelique Black Assessments Encounter Date Diagnosis [...] 06/17/2020 *Wound Culture 06/19/2022 *Wound Culture 09/03/2023 02158-ASBVJYU NAIL, 6 OR MORE 04/02/2023 21218-VKABNMU NAIL, 6 OR MORE 01/16/2022 17901-XWEROZK NAIL, 6 OR MORE 03/30/2022 04113-KHXEYMJ NAIL, 6 OR MORE 06/19/2022 16766-BHIBYHO NAIL, 6 OR MORE 09/21/2022 28537-NVYNHYN NAIL, 6 OR MORE 10/04/2020 31383-WIPKFVN NAIL, 6 OR MORE 01/31/2021 39549-JRHEDBO NAIL, 6 OR MORE 05/02/2021 95693-BTJCTUA NAIL, 6 OR MORE 08/18/2021 72680-IJPKOGN NAIL, 6 OR MORE 10/27/2021 78347-BHEYRIY NAIL, 6 OR MORE 10/15/2023 92828- Debride <25 sq cm 01/16/2022 72832- Debride <25 sq cm 10/27/2021 42410- Debride <25 sq cm 08/18/2021 58741- Debride <25 sq cm 05/02/2021 14810- Debride <25 sq cm 11/01/2020 01231- Debride <25 sq cm 11/25/2020 45248- Debride <25 sq cm 12/23/2020 85862- Debride <25 sq cm 08/23/2020 75260- Debride <25 sq cm 01/31/2021 65477- Debride <25 sq cm 04/08/2020 65446- Debride <25 sq cm 04/29/2020 40902- Debride <25 sq cm 05/20/2020 37159- Debride <25 sq cm 10/12/2022 67694- Debride <25 sq cm 11/16/2022 25919- Debride <25 sq cm 12/04/2022 01889- Debride <25 sq cm 03/30/2022 06523- Debride <25 sq cm 04/20/2022 46039- Debride <25 sq cm 05/08/2022 01311- Debride <25 sq cm 05/22/2022 05450- Debride <25 sq cm 04/19/2023 89413- Debride <25 sq cm 05/10/2023 91994- Debride <25 sq cm 03/08/2023 97111- Debride <25 sq cm 03/22/2023 24995- Debride <25 sq cm 04/02/2023 44248- Debride <25 sq cm 08/10/2022 31331- Debride <25 sq cm 07/02/2023 88176- Debride <25 sq cm 07/26/2023 27887- Debride <25 sq cm 08/13/2023 05346-XLDASDG SKIN/TISSUE 09/03/2023 69336-ZLSHYQX SKIN/TISSUE 09/24/2023 13838-EGOAFXQ SKIN/TISSUE 07/02/2023 74683-RTSMYUQ SKIN/TISSUE 06/19/2022 80661-CQZXLUU SKIN/TISSUE 02/05/2023 73323-GUUGUAW SKIN/TISSUE 02/19/2023 72998-GVSQDUX SKIN/TISSUE 03/30/2022 70926-ONTTTGO SKIN/TISSUE 04/20/2022 09635-ZCFMVLJ SKIN/TISSUE 06/17/2020 12621-FMAGBDD SKIN/TISSUE 07/08/2020 38643-WDDVYVG SKIN/TISSUE 07/29/2020 58012-HJLKXYS SKIN/TISSUE 12/22/2019 16892-LKVPWLK SKIN/TISSUE 01/12/2020 42455-LWAMEKS SKIN/TISSUE 02/02/2020 94944-NBWAYPX SKIN/TISSUE 12/01/2019 98470-BUNZLYC SKIN/TISSUE 02/23/2020 46769-LAAXUCF SKIN/TISSUE 03/15/2020 20644-GUEKUKJ SKIN/TISSUE 04/08/2020 49246 I&D ABSCESS- SIMPLE,SINGLE 021 40608-DLFD SKIN LESIONS, OVER 4 02/01/20 21 13568-FADM SKIN LESIONS, OVER 4 10/05/19 16373-JJZV SKIN LESIONS, OVER 4 05/02/20 01628-KIGR SKIN LESIONS, OVER 4 08/19/19 63027-UNFV SKIN LESIONS, OVER 4 10/28/19 54017-UZVF SKIN LESIONS, OVER 4 01/17/20 53761-LPOZ SKIN LESIONS, OVER 4 12/01/19 19831-KKTT SKIN LESIONS, OVER 4 02/02/20 20 65967-QAGR SKIN LESIONS, OVER 4 04/08/20 20 47795-HKWQ SKIN LESIONS, OVER 4 06/17/19 07643-PFWK SKIN LESIONS, OVER 4 06/19/19 85462-GKWO SKIN LESIONS, OVER 4 03/30/20 97926-NTDC SKIN LESIONS, OVER 4 10/15/19 24 04077-ITWV SKIN LESIONS, OVER 4 09/22/19 23 70558-BROC SKIN LESIONS, 2 TO 4 04/02/20 23 S4118-NXYGFXHN DYSTROPHIC NAILS ANY # F3303-BDKEHROF DYSTROPHIC NAILS ANY # X6286-IRLZVDZZ DYSTROPHIC NAILS ANY # G5820-MBDNVUJT DYSTROPHIC NAILS ANY # 23071 - Tenotomy, open flexor 01/06/2021 38943 - Tenotomy, open flexor 01/20/2021 50887 - Tenotomy, open flexor 02/02/2022 Insurance Providers Payer Name Payer Address Payer Phone Subscriber Number Group Number Insured Name Patient Relationship to Insured Coverage Start Date Coverage End Date Medicare [facility] [address] [place] [address] [id number] Corby, Doris Self - patient is the insured [employer]) [address] [place] [address] [id number] Corby, Doris Self - patient is the [...] ft foot 07/19/2022 Hospitalization History Reason Date(Month/Year) QOZ-Areooqmfadxewm-RQ only not admitted 12/12/2019 [facility]- blood sugar, biopsy 09/2023
== END 2024-05-20 14:24 | disposition home or self-care (01) ==
LOC: HO.HOSX 14:23
PROVIDERS: Visit Provider Physician Assistant
DX: S32.592D Other specified fracture of left pubis, subsequent encounter for fracture with routine healing (principal)
CPT/HCPCS: 72170; 99212

== ENCOUNTER 2024-06-05 08:49 | Outpatient (REF) | payer MEDICARE, OTHER, SELFPAY ==
--- OUTSIDE RECORDS SUMMARY | 2024-06-06 09:05 | XMS_ITS ---
Author Organization [facility] Address [address] [place] [address] Care Team Providers Care Accident Report Clerk Name Role Phone Danyell Glass Primary Care Provider Maninder Gracia, Angelique Unavailable [phone] REASON FOR VISIT cx 02/03 Encounters Encounter Location Date Provider Diagnosis [facility] [address] [place] [address] 01/31/2024 Angelique Black Plan Of Treatment No Information Progress Notes * Doris TAVAREZ MDOB:1950 (74 yo F)Acc No.[id number]:01/31/2024 Patient:?Doris Tavarez :1950???Age:74 Y???Sex:Female Address:[address] [place] [address] [place], [address] * true * Date:? Generated for Johnniei inocencia/Marcela/eTransmitting on:?06/06/2024 09:05 AM EST
--- OUTSIDE RECORDS SUMMARY | 2024-06-06 09:05 | XMS_ITS ---
Author Organization [facility] Address [address] [place] [address] Care Team Providers Care Map Drafter Name Role Phone Danyell Glass Primary Care Provider Angelique Garcia [phone] Encounters Encounter Location Date Provider Diagnosis [facility] [address] [place] [address] 02/04/2024 Angelique Gracia Plan Of Treatment No Information Progress Notes * Doris TAVAREZ MDOB:1950 (74 yo F)Acc No.[id number]:02/04/2024 Progress Note Patient:Doris YE Provider:?Angelique Gracia DPM :1950???Age:74 Y???Sex:Female D ate:02/04/2024 [facility] Pcp:Danyell Glass Subjective: * Chief Complaints: * ??? * Medical History:? Objective: * Vitals:? Assessment: Plan: * Treatment: * Images: * The named appointment provid er may or may not be the originator of this progress note, and it is not deemed complete until electronically signed by the appointment provider. Sign off status: Pending * Provider:?Angelique Gracia DPM Date:?2023 Generated for Jayne pro/Marcela/eTransmitting on:?06/06/2024 09:05 AM EST
--- OUTSIDE RECORDS SUMMARY | 2024-06-06 09:05 | XMS_ITS | Continuity of Care Document ---
Author Organization [facility] Address [address] [place] [address] Care Team Providers Care Testing Analyst Name Role Phone Blayne Moore MD Primary Care Physician Unavai lable [id number] Date(s): 04/23/24 - 05/23/24 [facility] [address] [place] [address]- Encounter Type: Triage Allergies, Adverse Reactions, Alerts [...] 0 Refills, Maintenance, 03/10/24 8:56:00 AM EDT, [facility]/pharm[facility] #[id number], Partial fill upon patient request if the [...] Team Personnel Name: Margaux Watters RN Position: [facility] RN Member Role: Primary Care Nurse Name: Rachael Mariee RN Position: [facility] RN Member Role: Primary Care Nurse Name: Mack Spain RN Position: [facility] RN Member Role: Primary Care Nurse Name: Travis Blevins RN Position: [facility] RN Member Role: Primary Care Nurse Name: Jeaneth Landa RN Position: [facility] RN Member Role: Primary Care Nurse Name: Merced Romero RN Position: S RN Member Role: Primary Care Nurse Name: Blayne Moore MD Position: [facility] Physician (General Medicine) Member Role: PCP Name: Cedric Asif RN Position: [facility] RN Member Role: Primary Care Nurse Name: Marta Velez RN Position: [facility] RN Member Role: Primary Care Nurse Name: Kiersten Castillo RN Position: [facility] RN Member Role: Primary Care Nurse Name: Zandra Vera RN Position: [facility] RN Member Role: Primary Care Nurse Name: Gina Pavon RN Position: [facility] RN Member Role: Primary Care Nurse Name: An Thurman RN Position: [facility] ED RN W/OE and Tasks Member Role: Primary Care Nurse Name: Mark Chen RN Position: [facility] RN Member Role: Primary Care Nurse Name: Lisa Aguayo RN Position: [facility] RN Member Role: Primary Care Nurse Name: Brady Mg Position: [facility] Outreach Member Role: Lifetime Consulting Physician Name: Isabel Robles RN Position: [facility] RN Member Role: Primary Care Nurse Name: Nathaniel Danielle MD Position: [facility] Renal MD Member Role: Lifetime Consulting Physician Address: [address] [place] [address] [address] [facility] [address] Telecom: Name: Andreina Garcia RN Position: [facility] RN Member Role: Primary Care Nurse Name: Rizwana Franklin RN Position: [facility] RN Member Role: Primary Care Nurse Name: Stephanie Mcdonald RN Position: [facility] RN Member Role: Primary Care Nurse Name: Sean Freeman RN Position: [facility] RN Member Role: Primary Care Nurse Name: Jorge A Gallo RN Position: [facility] RN Member Role: Primary Care Nurse Name: Chava Lorenz RN Position: [facility] RN Member Role: Primary Care Nurse Care Team Related Persons Name: MARIBELL GUNDERSON Name: [place] GUNDERSON Name: NEPTALI JA Name: UNK, UNKNOWN Insurance Providers Guarantor name: YOVANI GUNDERSON Health Plan Information #: 1 Payer: MEDICARE PART B OUTPT Member Number: NA Policy Number: NA Group Number: NA Health Plan Information #: 2 Payer: [facility] Member Number: NA Policy Number: NA Group Number: NA
--- OUTSIDE RECORDS SUMMARY | 2024-06-06 09:05 | XMS_ITS | Continuity of Care Document ---
Author Organization [facility] ter Address [address] [place] [id number]- Care Team Providers Care Inspector Shells Name Role Phone Megan Camarena MD [id number] Date[facility]/28/[facility] - 05/28/[address] [address] Discharge Disposition: A-D/C Home Attending Physician: Sahil Barry Jr, MD Admitting Physician: Sahil Barry Jr, MD Referring Physician: Sahil Barry Jr, MD Encounter Type: Disch Daystay Allergies, Adverse Reactions, Alerts Substance Criticality Severity [...] 0 Refills, Maintenance, 03/10/24 8:56:00 AM EDT, [facility]/pharmacy #[id number], Partial fill upon patient request if the [...] mellitus Confirmed Active Pancreatic cancer Confirmed Active Vital Signs Most recent to oldest [Reference Range]: 1 2 3 Height 163 cm (05/28/24 10:18 AM) Oxygen Saturation [94-100 %] 95 % (05/28/24 1:23 PM) 94 % (05/28/24 1:17 PM) 94 % (05/28/24 1:10 PM) Pulse Rate [55-90 bpm] 72 bpm (05/28/24 1:23 PM) 72 bpm (05/28/24 1:17 PM) 75 bpm (05/28/24 1:10 PM) Blood Pressure [90-138/55-84 mm Hg] 145/74mm Hg *H* (05/28/24 1:23 PM) 132/73mm Hg (05/28/24 1:17 PM) 137/68mm Hg (05/28/24 1:10 PM) Respiratory Rate [16-30 br/min] 16 br/min (05/28/24 1:23 PM) 22 br/min (05/28/24 1:17 PM) 13 br/min *L* (05/28/24 1:10 PM) Temperature [96.8-100.4 DegF] 98.7 DegF (05/28/24 12:50 PM) 97.4 DegF (05/28/24 10:18 AM) Liters per Minute 5 L/min (05/28/24 12:58 PM) 8 L/min (05/28/24 12:50 PM) Mode of Delivery (Oxygen) Room air (05/28/24 1:23 PM) Room air (05/28/24 1:17 PM) Room air (05/28/24 1:10 PM) Blood pressure sites Arm, left (05/28/24 1:23 PM) Arm, left (05/28/24 1:17 PM) Arm, left (05/28/24 1:10 PM) Temperature Route Temporal (05/28/24 12:50 PM) Temporal (05/28/24 10:18 AM) Dry Weight 54 kg (05/28/24 10:18 AM) Dry Weight Obtained Via Patient/family s tated (05/28/24 10:18 AM) Social History Social History Type Response Smoking Status Never (less than 100 in lifetime) entered on: 04/01/24 Sex Sex Representation Female (finding) Clinical Note * Event Display: GG EGD Please click on pdf link to open report History and physical note * Jhonny Aragon MD, Sahil W: PERFORM, MODIFY Event Display: History and Physical Hospital Authored Date: [id number] Patient: ??NEPTALI, YOVANI ? Age:??74 Years?Sex:??Female?:??1950?? Chief Complaint Duodenal perforation. History of Present Illness 74-year-old female with history of pancreatic adenocarcinoma status post biliary stent placement who underwent ERCP at [facility] 01/17/2024 with attempted stent exchange.?? Scope passage was impeded by narrowing from suspected extrinsic compression from pancreatic mass and subsequent dilation was undertaken.?? Procedure ultimately unsuccessful.?? Several hours later patient was admitted with worsening abdominal discomfort [place] and then transferred to [facility] for further evaluation.?? Imaging suggestive of contained perforation of the duodenum.?? Further CT 01/22/2024 with findings of duodenal leak.?? After multidisciplinary input from surgical team, attempted end oscopic salvage was agreed upon given patient's underlying frailty, locally advanced cancer Infloran process.?? During that procedure 01/22/2024, large full- thickness defect???at least 4 cm on the border of D1 and D2 was seen.?? This was traversed and necrosis/debris was cleared from the contained extraluminal collection.?? We then placed a 18 mm x 10 cm fully covered esophageal stent under endoscopic and fluoroscopic guidance to traverse of the with the proximal flange being prepyloric.?? Entrance papillary biliary stent placed at prior ERCP procedure at [place] was not able to be removed or exchanged.?? Patient was admitted with evidence of stent migration???limited and underwent repeat end oscopy 02/29/2024.?? During the procedure, the proximal flange of the stent was positioned in the duodenal bulb and this was pulled into the prepyloric area with additional suturing using?? X tack.?? She presents now for stent removal Review of Systems Neg Physical Exam Vitals & Measurements T:??97.4?F?? HR:??92??(Peripheral)?? RR:??20?? BP:??143/74?? SpO2:??100%?? HT:??163??cm?? ABD: S/NT/ND Remainder of exam per anesthesia Assessment/Plan EGD with stent removal. defect closure. possible ERCP. I reviewed plan to remove the fully covered stent from the duodenum, reevaluate the defect and potentially augment closure if needed and discussed possible ERCP??for this case??due to the need ?I discussed with the patient today that she has increasing biliary dilation on CT scan and the plastic stent may obstruct or may be obstructing.?? I discussed that if anatomy today is amenable, Imay try to replace the plastic biliary stent with a metal biliary stent to decrease the risk of biliary obstruction and cholangitis.?? I discussed that if this is unsuccessful, at some point in the future, patient will likely require IR guided percutaneous biliary drainage ?? i also discussed with patient's son on the phone. 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 Home Medications Acetaminophen: 650 mg = 2 tablet, By Mouth, Every 8 hours, PRN (as needed for fever/pain) apixaban: TAKE 1 TABLET BY MOUTH TWICE A DAY Ascorbic Acid: 500 mg = 1 tablet, By Mouth, Daily Atorvastatin: 10 mg = 1 tablet, By Mouth, Daily Barium Sulfate: See Instructions, as directed Bisacodyl: 10 mg = 1 supp, Rectally, Daily, PRN (for constipation) Diltiazem: 120 mg, By Mouth, Daily Durable Medical Equipment (Right first and right second amputation toe filler prosthetic): See Instructions, Right first and right second amputation toe filler prosthetic empagliflozin-metFORMIN: 90 each, 0 Refill(s), TAKE 1 TABLET BY MOUTH EVERY DAY Ferrous Sulfate: 1 Unknown, by mouth, 0 Refill(s) Furosemide: 180 each, 0 Refill(s), TAKE 1 TABLET BY MOUTH TWICE A DAY Insulin Glargine: 6 units, Subcutaneous Injection, Daily at bedtime Insulin Lispro: 2-10 units, Subcutaneous Injection, 3 times a day before meals, << Sliding Scale Comments >>100 - 149 ?? 2 units Call if less than [phone] - 199 ?? 4 units 200 - 249 ?? 6 units 250 - 299 ?? 8 units 300 - 349 ?? 10 units Call if greater than 400<< Sliding Scale Comments >> Metoprolol: 25 mg = 1 tablet, By Mouth, 2 times a day Milk of Magnesia: 2.4 Gm = 30 mL, By Mouth, Daily at bedtime, PRN (for constipation) Miscellaneous Rx: 100 each, 0 Refill(s), USE TO TEST ONCE DAILY Ondansetron: 8 mg = 1 tablet, By Mouth, Every 8 hours, PRN (Nausea & Vomiting) Potassium Chloride: 2 tablets, By Mouth, 2 times a day Sodium Biphosphate-Sodium Phosphate: 1 each, Rectally, Once, PRN (as needed for constipation) Allergies doxycycline Social History Tobacco Use: Never (less than 100 in lifetime). Family History No family history recorded. Lab Results Labs Last 24 Hours No qualifying data available. Note * Ashley Alvarado RN: PERFORM Event Display: Discharge/Transfer Note Hospital Authored Date: [id number] Nursing Discharge Note Entered On: 05/28/2024 13:00 EST Performed On: 05/28/2024 13:00 EST by Ashley Alvarado RN Nursing Discharge Note 2 Discharge Time : 05/28/2024 14:19 EST Ashley Alvarado RN - 05/28/2024 14:27 EST Discharge Level of Care at Discharge : Home/Prison/Foster Care Patient Left Unit Via : Wheelchair Patient Accompanied Off Unit with : Responsible adult DC Instructions Provided & Signed by Pt : Yes Patient Understands D/C Instructions : Yes Patient Instructions Discharge Signed : Yes Did Pt have Specialty Bed or Wound Vac : No Ashley Alvarado RN - 05/28/2024 13:00 EST * Ashley Alvarado RN: PERFORM Event Display: Patient Education/Instruction Authored Date: [id number] Surgery Adult Discharge Instructions [place] [id number] Name: YOVANI GUNDERSON : 1950?? Visit: 05/28/2024 09:45?? Current Date: 05/28/2024 13:50 ?? Account: [id number]?? Surgery Discharge Instructions We would like to thank you for allowing us to assist you with your healthcare needs. The following includes patient education materials and information regarding your injury/illness. Our entire staffstrives to provide an excellent experience for our patients and their families. PLEASE ENSURE YOU FOLLOW-UP PER THE INSTRUCTIONS BELOW! ?? YOUR OPINION IS IMPORTANT TO US! Please complete the survey you may receive by mail or email. Your feedback will be used to make improvements to the healthcare experiences of our patients and their families. Surveys are administered by [employer] ?? If further treatment with your primary care physician or another doctor is recommended, it is important for you to keep the appointment. Call your primary care physician or return to the Emergency Department immediately if your condition worsens, fails to improve, or new symptoms develop. If you need to find a doctor, you can call [facility] Link for a referral at [phone] or toll free at [phone] ([phone]) or log in to [email or web address].. ?? [facility], in keeping with [facility] guidance, no longer requires face masks [...] medical provider or home test kit. ?? You can view and manage your care through the patient portal or by using a health care jennifer of your choosing. [employer] is a website that allows you to securely view your medical information including your hospital discharge summary, office visit summaries, medications and follow-up visits. You can also request appointments, renew medications, and request access to your medical information using a health care jennifer of your choosing, or just ask a question. You are entitled to know the individuals who participated in your treatment. This information is available within your medical record and will be provided upon your request. You can enroll at [email or web address] or register d uring your next office visit. You have been discharged from [facility], Patient Care Unit: ENDO??. If you have any questions regarding these instructions after you leave, please call us and we will be happy to assist you. [facility] Your Care Team Attending Physician Sahil Barry Jr, MD?? Discharging Providers Sahil Barry Jr, MD Reason for Admission DUODENAL PERFORATION FOLLOW UP Primary Care Provider Megan Camarena MD? Advance Directive Health Care Proxy on File Yes - Health Care Proxy Yes - [facility] What to do next Instructions From Your Doctor Summary of Procedures: ?? Stent Removal: The??Two fully covered metal stents were removed from the duodenum. After removal, tests showed that the previous duodenal leak has resolved. ?? ERCP Procedure: A successful ERCP was performed.?? The previous plastic biliary stent was removed and replaced with a new metal stent. A large amount of sludge and debris was also cleared from the biliary system. ?? Anatomical Observations: There is significant distortion in the anatomy of the duodenum, likely dueto a pancreatic tumor and scarring. ?? Follow-Up Care Instructions: ?? Rehabilitation: You may return to your rehabilitation facility as planned. ?? Oncology Follow-Up: Schedule and attend follow-up appointments with your medical oncology team- . You are cleared to continue chemotherapy from a gastrointestinal perspective. ?? Jaundice Alert: If you notice any signs of jaundice (yellowing of the skin or eyes), contact GI?? at [facility] immediately. This could indicate a blockage in the bile duct, requiring another ERCP procedure. ?? Medication: You may resume taking Eliquis tonight as previously prescribed. ?? Family Notification: Your son has been updated on your condition and care plan. ?? Contact Information: ?? For any concerns or questions, please contact Dr. Sahil Barry's office at [phone]. In case of emergency, call 911 or visit the nearest emergency room. Next Steps: ?? It is very important that you follow these instructions: ???You may have a mild sore throat or hoarseness after the procedure. This is because of the tube and the anesthetic.?You may feel nauseated today. This sometimes happens because of the medications that are used. This should get better within a few hours. If your nausea continues for more than 24 hours contact your doctor's office. .?Do not drive any motor vehicle or operate dangerous equipment. Weakness and lack of coordinationare the result of the medications that were administered during the procedure.?Do not conduct important business or sign any legal documents on the day of the procedure, sinceyou may feel drowsy from the medications that were administered today.?If you have redness or swelling at sites where medications were given, place a warm wet washcloth over the affected area for twenty minutes. If the symptoms persist for over two days please contact your doctor's office.?Call your doctor's office if you develop fever greater than 101 degrees or chills during the next 48 hours.?Please call for any issues or questions that may arise. Our office phone number is [phone] ? Orders? 05/28/24 13:39:00 EST?? 05/28/24 13:39:00 EST?? You Need to Schedule the Following Appointments Follow Up with??follow up with primary care as needed Follow Up with??Megan Camarena When:??In 0 days Discharge Medications YOVANI GUNDERSON :1950 Visit Date:05/28/2024 Medications: Please continue your medications until treatment is completed or stopped by your provider. You may resume your daily prescription medications. Discuss any questions related to medications with your provider. What How Much When Why Instructions Next Dose Unchanged Acetaminophen (acetaminophen 325 mg oral tablet) 2 tab(s) Oral Every 8 hours as needed for as needed for fever/pain Unchanged apixaban (Eliquis 5 mg oral tablet) TAKE 1 TABLET BY MOUTH TWICE A DAY ?? 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 Unchanged empagliflozin-metFORMIN (Synjardy XR 25 mg-1000 mg [...] as needed for as needed for constipation Allergies (NKA means No Known Allergies) doxycycline Education Materials Below is the list of Educational Leaflet Providered with your Discharge Instructions. [employer] Patient Education - Surgery Medical Daystay Surgical Overnight Discharge Instructions?? Valuables and Belongings I fully understand and agree that [facility] accepts no responsibility for all my personal property including clothing, toilet articles, radios, jewelry, dentures, hearing aids, rings, money, or any other property that is in my possession or is brought to me after admission. I understand certain valuables may be placed in a hospital safe for a short period of time. I understand that the hospital is not liable for loss or damage due to accident, fire, or other natural occurrence while said property is in the safe. I accept full responsibility for any personal property that I keep with me, and will not hold the hospital responsible in case of loss or disappearance. I acknowledge that i have been encouraged to send valuables and belongings home. ? Other Discharge Information ? Case Management Discharge Plan?? Discharge Plan?? Discharge Level of Care at Discharge: Home/Prison/Foster Care ?? Pulmonary Rehab Status?? Pulmonary Rehab Discharge Status?? Respiratory Rate: 16 br/min ? Common Emergency Awareness Tips IS IT A [...] are strongly encouraged to quit. Please call [facility] [employer] Internet Link at [phone] or [phone] ([phone]) or log in to [email or web address] for referrals to smoking cessation programs. ?? The National Suicide Prevention Hotline is available 01/01 if you or someone you know needs to find a reason to keep living. By calling 5-247-062-B[place]o (5081) you'll be connected to a skilled, trained counselor at a crisis center in your area. SURGERY DISCHARGE INSTRUCTIONS SIGNATURE YOVANI OLSEN Location:[facility] Registration Date and Time:05/28/2024 09:45 EST Primary Care Physician: Nicol CRISTOBAL, Megan Villafana, Attending Physician: Jhonny Aragon MD, Sahil Chow, Marcin GUNDERSONRADHAYOVANI, have received the above patient education materials/instructions and have verbalized understanding. If ambulance or transport services are being used I further acknowledge being givena choice of service. ?? If you need to contact me, please call me at this number: . Patient/Corporate Trainer Name: Patient/Corporate Trainer Signature: Relationship to Patient: Witness Name/Signature: Date: * Ashley Alvarado RN: PERFORM, SIGN, VERIFY Event Display: Patient Education Handout Authored Date: [id number] * Ashley Alvarado RN: PERFORM Event Display: Patient Education Leaflets Authored Date: [id number] Surgery Medical Daystay Surgical Overnight Discharge Instructions ?? 295 Medical Daystay/Surgical Overnight Discharge Instructions ? Since your coordination and judgment may be altered by medication and/or anesthesia, a responsible adult must drive you home from the hospital. ? If you have received medication for pain or sedation while under our care, you should not drive, operate machinery, drink alcohol, or sign any legal documents for 24 hours.?? You should have someone with you at home tonight. ? Remain at home the day of discharge.?? You may be up and about unless otherwise instructed by your physician. ? You may resume your daily prescription medication schedule.?? Any depressant medication should be avoided for 24 hours unless otherwise instructed by your surgeon or anesthesiologist. ? Call your physician for a follow-up appointment.? If you experience unusual or severe pain not relied by your pain medication, excessive bleedingor drainage, persistent nausea and vomiting, excessive swelling or redness, foul odor from incisionsite or fever over 100.6F, you need to call your physician. ? A follow-up phone call by a nurse will be made the day after your procedure.?? If you have stayed with us over night, you will not be receiving a follow-up phone call. ? Nausea and vomiting are a common side effect of prescription pain medication.?? We recommend that pills are not taken on an empty stomach.?? While taking any prescription pain medication you should not drive or drink alcohol. ? Patient Care team information Care Team Personnel Name: Margaux Watters RN Position: [facility] RN Member Role: Primary Care Nurse Name: Rachael Mariee RN Position: S RN Member Role: Primary Care Nurse Name: Mack Spain RN Position: S RN Member Role: Primary Care Nurse Name: Travis Blevins RN Position: [facility] RN Member Role: Primary Care Nurse Name: Jeaneth Landa RN Position: [facility] RN Member Role: Primary Care Nurse Name: Merced Romero RN Position: [facility] RN Member Role: Primary Care Nurse Name: Cedric Asif RN Position: [facility] RN Member Role: Primary Care Nurse Name: Marta Velez RN Position: [facility] RN Member Role: Primary Care Nurse Name: Kiersten Castillo RN Position: [facility] RN Member Role: Primary Care Nurse Name: Megan Camarena MD Position: [facility] Physician - Primary Care Member Role: PCP Address: [address] [place] [address] [address] [facility] [place] [address]- Telecom: Name: Zandra Vera RN Position: [facility] RN Member Role: Primary Care Nurse Name: Gina Pavon RN Position: [facility] RN Member Role: Primary Care Nurse Name: An Thurman RN Position: [facility] ED RN W/OE and Tasks Member Role: Primary Care Nurse Name: Mark Chen RN Position: [facility] RN Member Role: Primary Care Nurse Name: Lisa Aguayo RN Position: [facility] RN Member Role: Primary Care Nurse Name: Brady Mg Position: [facility] Outreach Member Role: Lifetime Consulting Physician Name: Isabel Robles RN Position: [facility] RN Member Role: Primary Care Nurse Name: Nathaniel Danielle MD Position: [facility] Renal MD Member Role: Lifetime Consulting Physician Address: [address] [place] [address] [address] [facility] [place] [address]- Telecom: Name: Andreina Garcia RN Position: [facility] RN Member Role: Primary Care Nurse Name: Rizwana Franklin RN Position: [facility] RN Member Role: Primary Care Nurse Name: Stephanie Mcdonald RN Position: [facility] RN Member Role: Primary Care Nurse Name: Sean Freeman RN Position: [facility] RN Member Role: Primary Care Nurse Name: Jorge A Gallo RN Position: [facility] RN Member Role: Primary Care Nurse Name: Chava Lorenz RN Position: [facility] RN Member Role: Primary Care Nurse Care Team Related Persons Name: MARIBELL GUNDERSON Name: [place] GUNDERSON Name: JA GUNDERSON Name: UNK, UNKNOWN Insurance Providers Guarantor name: YOVANI GUNDERSON Health Plan Information #: 2 Payer: [facility] Member Number: [id number] Policy Number: NA Group Number: [id number] Health Plan Information #: 1 Payer: MEDICARE PART B OUTPT Member Number: [id number] Policy Number: NA Group Number: NA
--- OUTSIDE RECORDS SUMMARY | 2024-06-06 09:05 | XMS_ITS | Continuity of Care Document ---
Author Organization [facility] Address [address] [place] [address]- [facility] Name Relationship Address Phone NEPTALI, YOVANI Personal Relationship Unknown Unavai lable NEPTALI, [place] spouse Unknown Unavailable NEPTALI, YOVANI Personal Relationship Unknown Unavai lable NEPTALI, MARIBELL child Unknown Unavailable KT, [place] Personal Relationship Unknown Unavai lable NEPTALI, YOVANI Personal Relationship Unknown Unavai lable KT, [place] Personal Relationship Unknown Unavai lable UNK, UNKNOWN Other Unknown Unavailable NEPTALI, JA child Unknown Unavailable Care Team Providers Care Compression Molding Machine Operator Name Role Phone Blayne Moore MD Primary Care Physician Unavai lable [id number] Date(s): 05/06/24 - 06/05/24 [facility] [address] [place] [address]- Encounter Type: Triage Allergies, Adverse Reactions, Alerts [...] 0 Refills, Maintenance, 03/10/24 8:56:00 AM EDT, [facility]/pharmacy #[id number], Partial fill upon patient request if the [...] Team Personnel Name: Margaux Watters RN Position: [facility] RN Member Role: Primary Care Nurse Name: Rachael Mariee RN Position: [facility] RN Member Role: Primary Care Nurse Name: Mack Spain RN Position: [facility] RN Member Role: Primary Care Nurse Name: Travis Blevins RN Position: [facility] RN Member Role: Primary Care Nurse Name: Jeaneth Landa RN Position: [facility] RN Member Role: Primary Care Nurse Name: Merced Romero RN Position: [facility] RN Member Role: Primary Care Nurse Name: Blayne Moore MD Position: [facility] Physician (General Medicine) Member Role: PCP Name: Cedric Asif RN Position: [facility] RN Member Role: Primary Care Nurse Name: Marta Velez RN Position: [facility] RN Member Role: Primary Care Nurse Name: Kiersten Castillo RN Position: [facility] RN Member Role: Primary Care Nurse Name: Zandra Vera RN Position: [facility] RN Member Role: Primary Care Nurse Name: Gina Pavon RN Position: [facility] RN Member Role: Primary Care Nurse Name: An Thurman RN Position: [facility] ED RN W/OE and Tasks Member Role: Primary Care Nurse Name: Mark Chen RN Position: [facility] RN Member Role: Primary Care Nurse Name: Lisa Aguayo RN Position: [facility] RN Member Role: Primary Care Nurse Name: Brady Mg Position: [facility] Outreach Member Role: Lifetime Consulting Physician Name: Isabel Robles RN Position: [facility] RN Member Role: Primary Care Nurse Name: Nathaniel Danielle MD Position: [facility] Renal MD Member Role: Lifetime Consulting Physician Address: [address] [place] [address] [address] [facility] [address] Telecom: Name: Andreina Garcia RN Position: [facility] RN Member Role: Primary Care Nurse Name: Rizwana Franklin RN Position: [facility] RN Member Role: Primary Care Nurse Name: Stephanie Mcdonald RN Position: [facility] RN Member Role: Primary Care Nurse Name: Sean Freeman RN Position: [facility] RN Member Role: Primary Care Nurse Name: Jorge A Gallo RN Position: [facility] RN Member Role: Primary Care Nurse Name: Chava Lorenz RN Position: [facility] RN Member Role: Primary Care Nurse Care Team Related Persons Name: MARIBELL GUNDERSON Name: NEPTALI [place] Name: JA GUNDERSON Name: BERNABEK, UNKNOWN Insurance Providers Guarantor name: YOVANI GUNDERSON Health Plan Information #: 1 Payer: MEDICARE PART B OUTPT Member Number: NA Policy Number: NA Group Number: NA Health Plan Information #: 2 [facility]ayer[facility] Member Number: NA Policy Number: NA Group Number: NA
--- OUTSIDE RECORDS SUMMARY | 2024-06-06 09:05 | XMS_ITS | Continuity of Care Document ---
Author Organization [facility] Address [address] [place] [address]- Care Team Providers Care Test Specialist Name Role Phone Blayne Moore MD Primary Care Physician Unavai lable [facility] [id number] Date(s): 04/01/24 - 05/23/24 [facility] [address] [place] [address]- Attending Physician: Marie Mercedes NP Admitting Physician: [...] 0 Refills, Maintenance, 03/10/24 8:56:00 AM EDT, [facility]/pharmacy #[id number], Partial fill upon patient request if the [...] List Condition Confirmation Course Effective Dates Status [facility] Informant 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 Pancreatic cancer Confirmed Active Social History Social History Type Response Smoking Status Never (less than 100 in lifetime) entered on: 04/01/24 Sex Sex Representation Female (finding) Patient Care team information Care Team Personnel Name: Margaux Watters RN Position: [facility] RN Member Role: Primary Care Nurse Name: Rachael Mariee RN Position: [facility] RN Member Role: Primary Care Nurse Name: Mack Spain RN Position: [facility] RN Member Role: Primary Care Nurse Name: Travis Blevins RN Position: [facility] RN Member Role: Primary Care Nurse Name: Jeaneth Landa RN Position: [facility] RN Member Role: Primary Care Nurse Name: Merced Romero RN Position: [facility] RN Member Role: Primary Care Nurse Name: Blayne Moore MD Position: [facility] Physician (General Medicine) Member Role: PCP Name: Cedric Asif RN Position: [facility] RN Member Role: Primary Care Nurse Name: Marta Velez RN Position: [facility] RN Member Role: Primary Care Nurse Name: Kiersten Castillo RN Position: [facility] RN Member Role: Primary Care Nurse Name: Zandra Vera RN Position: [facility] RN Member Role: Primary Care Nurse Name: Gina Pavon RN Position: [facility] RN Member Role: Primary Care Nurse Name: An Thurman RN Position: [facility] ED RN W/OE and Tasks Member Role: Primary Care Nurse Name: Mark Chen RN Position: [facility] RN Member Role: Primary Care Nurse Name: Lisa Aguayo RN Position: [facility] RN Member Role: Primary Care Nurse Name: Brady Mg Position: [facility] Outreach Member Role: Lifetime Consulting Physician Name: Isabel Robles RN Position: [facility] RN Member Role: Primary Care Nurse Name: Nathaniel Danielle MD Position: [facility] Renal MD Member Role: Lifetime Consulting Physician Address: [address] [place], [place] [id number] [facility] [address] Telecom: Name: Andreina Garcia RN Position: [facility] RN Member Role: Primary Care Nurse Name: Rizwana Franklin RN Position: [facility] RN Member Role: Primary Care Nurse Name: Stephanie Mcdonald RN Position: [facility] RN Member Role: Primary Care Nurse Name: Sean Freeman RN Position: [facility] RN Member Role: Primary Care Nurse Name: Jorge A Gallo RN Position: [facility] RN Member Role: Primary Care Nurse Name: Chava Lorenz RN Position: [facility] RN Member Role: Primary Care Nurse Care Team Related Persons Name: MARIBELL GUNDERSON Name: [place] GUNDERSON Name: NEPTALI JA Name: UNK, UNKNOWN Insurance Providers Guarantor name: YOVANI GUNDERSON Health Plan Information #: 1 Payer: MEDICARE PART B OUTPT Member Number: [id number] Policy Number: NA Group Number: NA Health Plan Information #: 2 Payer: [facility] Member Number: [id number] Policy Number: NA Group Number: [id number]
--- OUTSIDE RECORDS SUMMARY | 2024-06-06 09:06 | XMS_ITS ---
Author Organization [facility] Address [address] [place] [address] Care Team Providers Care Sharepoint Manager Name Role Phone Danyell Glass Primary Care Provider Angelique Garcia [phone] REASON FOR VISIT CX per Dr Gracia Encounters Encounter Location Date Provider Diagnosis [facility] [address] [place] [address] 11/08/2023 Angelique Gracia Plan Of Treatment No Information Progress Notes * NEPTALI Doris MDOB:1950 (74 yo F)Acc No.[id number]:11/08/2023 Progress Notes Patient:Doris YE Provider:?Angelique Gracia DPM :1950???Age:73 Y???Sex:Female D ate:11/08/2023 Address:[address] [place] [address] [id number] Pcp:Danyell Glass Subjective: * Chief Complaints: * [...] Provider:?Angelique Gracia DPM Date:?2023 Generated for Printi inocencai/Favandana/eTransmitting on:?06/06/2024 09:05 AM EST
--- OUTSIDE RECORDS SUMMARY | 2024-06-06 09:06 | XMS_ITS | Patient Health Record ---
Author Organization [facility] Address [address] [facility] [place] [address] Care Team Providers Care Supervisor Tank House Name Role Phone Danyell Glass Primary Care Provider Unavailcharlie e Black, Angelique Unavailable [phone] Allergies Allergen (clinical drug ingredient) Drug/Non Drug [...] Status Risk Notes Problem Ulcer of foot (30557412) Non-pressure chronic ulcer of other part of right foot with fat layer exposed (L97.512) Active confirmed Problem Diabetic foot ulcer (706527400) Non-pressure chronic ulcer of other part of right foot limited to breakdown of skin (L97.511) Active confirmed Problem Acquired hammer toe of left foot (627243386053816 3) Other hammer toe(s) (acquired), left foot (M20.42) Active confirmed Problem Polyneuropathy due to type 2 diabetes mellitus (004924427) Type 2 diabetes mellitus with diabetic polyneuropathy (E11.42) Active confirmed Problem Joint contracture of the ankle and/or foot (026606489) Flexion contracture of joint of right foot (M24.574) Active confirmed Problem Acquired deformity of right foot (987212102464818 00) 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) Active confirmed Problem Acquired deformity of left foot (249202965521373 04) PlantarFlexion of metatarsal of left foot (M21.6X2) Active confirmed Problem Joint contracture of the ankle and/or foot (577356059) Flexion contracture of joint of left foot (M24.575) Active confirmed Problem Neuropathic ulcer of right foot (disorder) (798667073470031 02) Neuropathic ulcer of right foot, limited to breakdown of skin (L97.511) Active confirmed Response to treatment,, Response to treatment - Unchanged Problem 199475878 Neuropathic ulcer with fat layer exposed (L98.492) Active confirmed Resolved,No napplicable Vital Signs Height 5ft 4in in 10/15/2023 Weight 151 lbs 10/15/2023 BMI 25.92 kg/m2 10/15/2023 Procedures Procedure Date Ordered Date Performed Result Body Sit e 50566- Debride <25 sq cm 07/02/2023 N/A 55768-BVPPAWN SKIN/TISSUE 07/02/2023 N/A 45247- Debride <25 sq cm 07/26/2023 N/A 70720- Debride <25 sq cm 08/13/2023 N/A 44763-KFGNJUJ SKIN/TISSUE 09/03/2023 N/A 20190-CAFCRVN SKIN/TISSUE 09/24/2023 N/A 26798-FTKZACI NAIL, 6 OR MORE 10/15/2023 N/A 68663-LVIS SKIN LESIONS, OVER 4 10/15/2023 N/A Encounters Encounter Location Date Provider Diagnosis [address] [address] 06/14/2023 Angelique Black Neuropathic ulcer of right foot, limited to breakdown of skin L97.511 ; Type 2 diabetes mellitus with diabetic polyneuropathy E11.42 ; Tinea unguium B35.1 ; Neuropathic ulcer with fat layer exposed L98.492 and Hammer toe of right foot M20.[address] [address] 07/02/2023 Angelique Black Neuropathic ulcer of right foot, limited to breakdown of skin L97.511 ; Type 2 diabetes mellitus with diabetic polyneuropathy E11.42 and Neuropathic ulcer with fat layer exposed L98.[address] [address] 07/26/2023 Angelique Black Type 2 diabetes mellitus with diabetic polyneuropathy E11.42 and Neuropathic ulcer with fat layer exposed L98.[address] [address] 08/13/2023 Angelique Black Neuropathic ulcer of right foot, limited to breakdown of skin L97.511 and Type 2 diabetes mellitus with diabetic polyneuropathy E11.[address] [address] 09/03/2023 Angelique Black Type 2 diabetes mellitus with diabetic polyneuropathy E11.42 ; Flexion deformity, right ankle and toes M21.271 ; Cellulitis of foot L03.119 and Neuropathic ulcer with fat layer exposed L98.[address] [address] 09/24/2023 Angelique Black Type 2 diabetes mellitus with diabetic polyneuropathy E11.42 and Neuropathic ulcer with fat layer exposed L98.[address] [address] 10/15/2023 Angelique Black Type 2 diabetes mellitus with diabetic polyneuropathy E11.42 ; Neuropathic ulcer with fat layer exposed L98.492 and Tinea unguium B35.[address] [address] 09/03/2023 Angelique Black [address] [address] 09/03/2023 Angelique Black [address] [address] 10/01/2023 Angelique Black [address] [address] 10/15/2023 [facility] [address] 01/31/2024 Angelique Black Assessments Encounter Date Diagnosis [...] 06/17/2020 *Wound Culture 06/19/2022 *Wound Culture 09/03/2023 30879-GVICOBQ NAIL, 6 OR MORE 04/02/2023 56362-EQVWFZN NAIL, 6 OR MORE 01/16/2022 91742-NSYJORG NAIL, 6 OR MORE 03/30/2022 69466-ZGDCDAC NAIL, 6 OR MORE 06/19/2022 47364-JCLVECN NAIL, 6 OR MORE 09/21/2022 48805-PSNKXTN NAIL, 6 OR MORE 10/04/2020 70333-UPJUYWC NAIL, 6 OR MORE 01/31/2021 73207-DGLQKRQ NAIL, 6 OR MORE 05/02/2021 08420-UHLKXCG NAIL, 6 OR MORE 08/18/2021 43350-SEZVILD NAIL, 6 OR MORE 10/27/2021 22556-BBLNXMA NAIL, 6 OR MORE 10/15/2023 74535- Debride <25 sq cm 01/16/2022 67473- Debride <25 sq cm 10/27/2021 06632- Debride <25 sq cm 08/18/2021 46263- Debride <25 sq cm 05/02/2021 47966- Debride <25 sq cm 11/01/2020 64093- Debride <25 sq cm 11/25/2020 42714- Debride <25 sq cm 12/23/2020 85943- Debride <25 sq cm 08/23/2020 92871- Debride <25 sq cm 01/31/2021 02848- Debride <25 sq cm 04/08/2020 56960- Debride <25 sq cm 04/29/2020 41219- Debride <25 sq cm 05/20/2020 86399- Debride <25 sq cm 10/12/2022 29533- Debride <25 sq cm 11/16/2022 04468- Debride <25 sq cm 12/04/2022 50625- Debride <25 sq cm 03/30/2022 00206- Debride <25 sq cm 04/20/2022 88845- Debride <25 sq cm 05/08/2022 39744- Debride <25 sq cm 05/22/2022 25905- Debride <25 sq cm 04/19/2023 21995- Debride <25 sq cm 05/10/2023 26329- Debride <25 sq cm 03/08/2023 37336- Debride <25 sq cm 03/22/2023 81971- Debride <25 sq cm 04/02/2023 01781- Debride <25 sq cm 08/10/2022 49564- Debride <25 sq cm 07/02/2023 34953- Debride <25 sq cm 07/26/2023 34968- Debride <25 sq cm 08/13/2023 04018-THZRPBZ SKIN/TISSUE 09/03/2023 44967-WOKQAIK SKIN/TISSUE 09/24/2023 21353-BVOJEXC SKIN/TISSUE 07/02/2023 19864-OVMNJBQ SKIN/TISSUE 06/19/2022 97017-PNRWAKH SKIN/TISSUE 02/05/2023 47150-VRGXOJR SKIN/TISSUE 02/19/2023 50450-RZKRBZU SKIN/TISSUE 03/30/2022 30014-PJVKWJI SKIN/TISSUE 04/20/2022 18902-LVEHJVR SKIN/TISSUE 06/17/2020 33209-JHUYISC SKIN/TISSUE 07/08/2020 00568-PTREZSN SKIN/TISSUE 07/29/2020 18795-WCQLBTV SKIN/TISSUE 12/22/2019 55284-GGJIHFI SKIN/TISSUE 01/12/2020 30927-EJWRYDG SKIN/TISSUE 02/02/2020 87184-LUHIYMC SKIN/TISSUE 12/01/2019 12588-HJUCUVI SKIN/TISSUE 02/23/2020 93372-FPFEZRZ SKIN/TISSUE 03/15/2020 70520-UAXYELB SKIN/TISSUE 04/08/2020 54648 I&D ABSCESS- SIMPLE,SINGLE 021 43751-OOGM SKIN LESIONS, OVER 4 02/01/20 21 14221-BXOS SKIN LESIONS, OVER 4 10/05/19 92798-UVCJ SKIN LESIONS, OVER 4 05/02/20 23929-NCNH SKIN LESIONS, OVER 4 08/19/19 28816-RZAR SKIN LESIONS, OVER 4 10/28/19 28255-WCEH SKIN LESIONS, OVER 4 01/17/20 86264-UPOY SKIN LESIONS, OVER 4 12/01/19 56368-BRNM SKIN LESIONS, OVER 4 02/02/20 20 60289-WMVM SKIN LESIONS, OVER 4 04/08/20 20 77996-GEMN SKIN LESIONS, OVER 4 06/17/19 22613-GKPR SKIN LESIONS, OVER 4 06/19/19 31567-JKIW SKIN LESIONS, OVER 4 03/30/20 36031-AADD SKIN LESIONS, OVER 4 10/15/19 24 31218-TMLJ SKIN LESIONS, OVER 4 09/22/19 23 63934-NGWU SKIN LESIONS, 2 TO 4 04/02/20 23 W3894-LAWVULAK DYSTROPHIC NAILS ANY # N6910-RCSNWTED DYSTROPHIC NAILS ANY # I6803-JGEEMHKB DYSTROPHIC NAILS ANY # P0770-FTEUCLKI DYSTROPHIC NAILS ANY # 70544 - Tenotomy, open flexor 01/06/2021 27894 - Tenotomy, open flexor 01/20/2021 23677 - Tenotomy, open flexor 02/02/2022 Insurance Providers Payer Name Payer Address Payer Phone Subscriber Number Group Number Insured Name Patient Relationship to Insured Coverage Start Date Coverage End Date Medicare [facility] [address] [place] [address] [phone] [id number] Corby, Doris Self - patient is the insured [employer] [address] [place] [address] [id number] Corby, Doris Self - patient is the [...] ft foot 07/19/2022 Hospitalization History Reason Date(Month/Year) XIF-Rnhcevplnblfyd-RS only not admitted 12/12/2019 [place]- blood sugar, biopsy 09/2023
== END 2024-06-05 08:50 | disposition home or self-care (01) ==
LOC: HO.HOSX 08:49
PROVIDERS: Visit Provider Physician Assistant
DX: Z13.89 Encounter for screening for other disorder (principal)

== ENCOUNTER 2024-06-26 08:56 | Outpatient (REF) | payer MEDICARE, OTHER, SELFPAY ==
--- OUTSIDE RECORDS SUMMARY | 2024-06-27 09:30 | XMS_ITS | Continuity of Care Document ---
Author Organization [facility] Address [address] [place] [address]- Care Team Providers Care Kitchen Clerk Name Role Phone Blayne Moore MD Primary Care Physician Unavai lable Encounter [facility] Date(s): 05/09/24 - 06/08/24 [facility] [address] [place] [address] Attending Physician: Kristen Adams Admitting Physician: Kristen Adams Referring Physician: Kristen Adams Encounter Type: Triage Allergies, Adverse Reactions, Alerts [...] Maintenance, 03/10/24 8:56:00 AM EDT, [facility]/pharmacy #[id number], Partial fill upon patient request if the [...] RN Member Role: Primary Care Nurse Name: aMck Spain RN Position: S RN Member Role: Primary Care Nurse Name: Travis Blevins RN Position: S RN Member Role: Primary Care Nurse Name: Jeaneth Landa RN Position: S RN Member Role: Primary [...] Member Role: Lifetime Consulting Physician Address: [address] [place] [address] [address] [facility] [address] Telecom: Name: Andreina Garcia RN Position: [...] NA Health Plan Information #: 2 Payer: [facility] Member Number: NA Policy Number: NA Group Number: NA
--- OUTSIDE RECORDS SUMMARY | 2024-06-27 09:30 | XMS_ITS | Data Portability ---
Author Organization [facility], Main Office Address [address] [place] [address] [address] [place] NUNES [address] Care Team Providers Care Safety And Security Manager Name Role Phone PRIMO SMITH 1ST FLOOR OTHER [phone] Assessment Encounter Date Assessment Date Assessment LastModified by Organization Details LastModified Time 02/02/2017 02/02/2017 Hospital labs wbc=3.6, H/H=8.5/25.3, BUN=49, cre=1.91, ua=332, k+=4.4 [place] Not available 02/02/2017 11:03:08 02/06/2017 02/06/201702/05 wbc=4.0, H/H=9.7/28.2, BUN=60, cre=1.63, us=711, k+=4.4, egfr=31 01/31-WBC-3.3, H/H-9.3/26.3, plts-255, BUN/Cr-50/1.9 1, GFR-26, Na+133, K+3.9 Hospital labs wbc=3.6, H/H=8.5/25.3, BUN=49, cre=1.91, nk=371, k+=4.4 Not available 02/06/2017 14:52:27 02/20/2017 02/20/201702/12 wbc=5.8 hb=9.0 hct=27.9 ar=857 k=4.8 bun=60 cre=1.42 02/19 wbc=7.3, H/H=9.9/29.6, BUN=63, cre=1.55, bq=084, k+=4.6 Not available 02/20/2017 09:23:58 Plan of [...] Address Organization Details Recorded Time Diabetes mellitus 59597806 Active 2016 Mateo Baldev pat[place], [place] [employer] [facility] 07:58:03 Atrial fibrillation 91330596 Active 2016 Mateo Baldev [place] [employer] [facility] 7 07:58:08 Renal vasculitis 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 Active 2016 Mateo Baldev [place] [employer] [facility] 07:58:23 Chronic kidney disease 704470090 Active 2016 Mateo Baldev [place] [employer] [facility] 7 07:58:28 Diabetic foot ulcer 166128748 Active 2016 Mateo Baldev [place] [employer] [facility] 7 07:58:36 Sepsis 98840934 Active 2016 Mateo De Paz [facility], [place] [employer] 7 07:58:43 Hypertensive disorder 37373939 Active 2016 Mateo Rosmeryraymundo jorge, [place] [employer] 7 08:36:52 Congestive heart failure 47493433 Active 2016 Mateo Baldev [place] [employer] [facility] 7 08:37:06 Patent foramen ovale 948715163 Active 2016 Pearl Hayes MD [address] [facility], [address], [place], [address], [employer] 7 12:05:31 Anemia 861017062 Active 2016 Pearl Hayes MD [address] [facility], [address], [place], [address], [employer] 7 12:08:18 Leukopenia 90849721 Active 2016 Pearl Hayes MD [address] [facility], [address], [place], [address], [facility] 7 12:08:20 Problem Notes None recorded. Medical Equipment None Reported. Allergies Allergen ID Allergen Name Allergen Category Reaction Reaction Severity Criticality Documentation Date Start Date Code Code System Note Provider Name and Address Organization Details Recorded Time [id number] doxycycli ne Not available rash Not available Not available 02/02/2017 3640 RxNorm Not Available Not Available Not Available Vitals None Recorded Social History Question Answer Notes LastModified by Organizat ion Details LastModified Time Tobacco Smoking Status Never Smoker Not Available [facility] 04/06/2020 03:13:04 Do You Have An Advance Directive? Yes [id number] Information not available 04/06/2020 Do You Have A Medical Power Of Adjustment Examiner? Yes [id number] Information not available 04/06/2020 What Was The Date Of Your Most Recent Tobacco Screening? 02/02/2017 [id number] Information not available 04/06/2020 Sex: Unknown Functional Status None recorded. Mental Status None recorded. Family History Nothing Reported. Medical History No medical history recorded. Gynecological HistoryNo gynecological history recorded. Obstetrics History GPAL:G 0 P 0 0 0 0 Past Encounters Encounter ID Performer Location Encounter Start Date Encounter Closed Date Diagnosis/Indication Diagnosis SNOMED-CT Code Diagnosis ICD10 Code Diagnosis Note [id number] Mateo De Paz PRIMO SMITH [address] [place] [address] 01/31/2017 08:00:04 02/06/2017 13:09:35 Sepsis 23809425 A40.8 See HPIwas suspected in hospital re leukocytos is but abx were stopped per ID before discharge. Monitor site and wound consult prn. Diabetic foot ulcer 3710 39374 L97.512 See HPIfollowfreddie d by Wound care Dr Rahman for this. Follow recs. Monitor site and consult prn. Follow sugars and treat as below. Chronic ki dney disease 870993146 N18.3 need nephro consult as above. Current BUN=49, k+=1.91fol low BMP and avoid nephrotoxi cs. Renal vasculitis 4353631 0 I77.89 See HPI.hx of this was on Prednisone and cyclophosp hamide. Currently only on Prednisone 60mg qamTo follow up with nephrologi st for thisAvoid nephrotoxi cs.follow BMP last BUN=49, cre=1.91Of note erythema on foot and ankle has been attributed to this condition. Atrial fibrillation 4943 6004 I48.0 Was not on anticoags for low CHADS score but in hospital was transition ed to [facility]. Now on 5mg q12. Need input from PCP on overall health and need for anticoags. Diabetes mellitus 600410 09 E11.622 See HPIFollowe d by Dr Rahman for ulcer.Lant us 15 units qhslispro sliding scalefollo w accuchecks and A1c prnWith renal dysfunctio n will need nephro consult also as below. Hypertensive disorder 38 884301 I10 metoprolol 100mg BIDdiltiaz em ER 240mg qdfollow BP and labs Congestive heart failure 48177683 I50.31 See HPILasix 40mg qdmonitor edema and weights Patent foramen ovale 204 877543 Q21.1 Pt tells me Hospital told her she had a hole in her heart then told her she didn't. Will follow up to clarify. [id number] Pearl Hayes MD [address] [place] [address] 02/02/2017 11:00:52 02/06/2017 12:54:06 Diabetic foot ulcer 632355927 L97.[address] Rahman for this. Follow recs. Monitor site and consult prn. Local care as recommende d. Diabetes mellitus 949830 09 E11.622 Continue Lantus 15 units qhs and lispro sliding scale. Increase lantus as needed.fol low accuchecks and A1c prn Renal vasculitis 7733774 0 I77.[address] Gutierrez. Was on Prednisone and cyclophosp hamide. Currently only on Prednisone 60 mg qam. Need to check with nephro on whether to restart cytoxan. Avoid nephrotoxi c meds.GFR stable at this time. Atrial fibrillation 4943 6004 I48.0 Rate now in control on metoprolol 100 mg BID. Was not on anticoags for low CHADS score but [facility] Now on 5 mg q12. Need input from PCP on overall health and need for anticoags. Of not drug interactio n between diltiazem and eliquis causing increased effect of eliquis. May want to go down to 2.5 mg. Follow. Hypertensive disorder 38 211977 I10 BP stable on metoprolol 100 mg BID and diltiazem ER 240 mg qdfollow BP and labs Congestive heart failure 77222553 I50.31 No evidence of fluid overload at thi time, echo unremarkab le in hospital. Continue Lasix 40 mg qdmonitor edema, resp. status and weights Patent foramen ovale 204 949860 Q21.1 Apparently seen on echo in 2008, but not seen on recent echo. ?not seen this time due to difference in technique. F/U with cardio. Cellulitis of lower limb 399706926 L03.115 Area looks cellulitic to me. Abx was stopped in hospital, no improvemen t since admission here and very tender. Also need to be aggressive with any inf. as pt. is immunosupp ressed. Allergic to doxy, bactrim SS could be sed with current renal function, but jaida use clinda as better choice for safety. Clinda 300 mg QID x 10 days, with probiotic. Area on foot looks vasculitic , but area on leg does not to me, could be, but would rather err on the side of caution and tx with abx. Leukopenia 84266177 D70. 2 Likely due to cytoxan, mild, follow. Anemia 784804220 D64.89 Moderate to severe, but stable, likely due to cytoxan combined with renal failure. Has been getting procrit. Need to check and see when she is due and what the parameters are. Follow. [id number] Mateo SMITH [address] [place] [address] 02/06/2017 14:45:00 02/08/2017 15:44:22 Diabetic foot ulcer 453758664 L97.[address] care [address] Rahman for this. Seen today with good results reported. Follow recs. Monitor site and consult prn. Local care as recommende d. Cellulitis of lower limb 116768479 L03.[address] Hayes on 02/02 has much improved no erythema or warmth remain. Currently being treated with clindamyci n for 10 days. Extensive renal hx as well as immunosupp ression. Pt renal function stable from last labs egfr now 31. [id number] Mike Story MD [address] [address] 02/15/2017 13:25:47 02/20/2017 08:34:08 Diabetic foot ulcer 730508496 L97.512 continue wound carefollow ed by wound care at [facility] out patient Diabetes mellitus 141806 09 E11.622 continue lantus and SSmonitor blood glucose Atrial fibrillation 4943 6004 I48.0 Metoprolol 100 mg BIDEliquis 5 mg bidmonitor for rate control Congestive heart failure 95586978 I50.31 Lasix 40 mg qdminimal increase in lower extremity edemamonit or respirator y and renal function [id number] Mateo De Paz [address] [address] 02/20/2017 09:21:44 02/21/2017 11:35:20 Diabetic foot ulcer 291567423 L97.512 continue wound carefollow ed by [facility] out patientPt progressin g to discharge next week and has made solid progress with therapy Diabetes mellitus 418661 09 E11.622 Has been stablecont inue lantus and SS insulinmon itor accuchecks and A1c prn Atrial fibrillation 4943 6004 I48.0 rate controlled onMetoprol ol 100 mg BIDEliquis 5 mg bid Congestive heart failure 28443785 I50.31 Lasix 40 mg qdminimal increase in lower extremity edemamonit or respirator y and renal function [id number] Mike Story MD [address] [address] 02/26/2017 10:10:46 03/01/2017 11:56:46 Diabetic foot ulcer 963740062 L97.[address] care [address] Victor M bryan have reeval at f/u with PCP Diabetes mellitus 010807 09 E11.622 Lantus 15 units qhs and lispro sliding scaleconti nue to monitor blood glucose Renal vasculitis 0962425 0 I77.[address] Rivera rently only on Prednisone 60 mg qamCheck with nephro on whether to restart cytoxan.Av oid nephrotoxi c meds.GFR stable at this time Atrial fibrillation 4943 6004 I48.0 Rate now in control on metoprolol 100 mg BID. Was not on anticoags for low CHADS score but in hospital was transition ed to Eliquis. Now on 5 mg bid. Need input from PCP on overall health and need for anticoags. Of not drug interactio n between diltiazem and eliquis causing increased effect of eliquis. May want to go down to 2.5 mg. To assess at f/u Hypertensive disorder 38 452348 I10 Metoprolol 100 mg BIDDiltiaz em ER 240 mg qdfollow BP and labs Congestive heart failure 23216579 I50.31 Lasix 40 mg qdmonitor respirator y sx and renal function Anemia 069421372 D64.89 elevated MCVcheck b12 and folate prior to d/c Health Concerns Section Related Observation LastModified by Organization Detai ls LastModified Time None Recorded Concern Status LastModified by Organization Details LastModified Time None Recorded Advance Directives Directive Y: Payers Encounter Date Sequence Insurance Name Policy Number Policy Castro Covered Member ID Castro Member ID Guarantor Name 02/02/2017 1 [employer] [id number] 1 Doris M Corby [id number] Doris Corby 02/06/2017 1 [employer] [id number] 1 Doris M Corby [id number] Doris Corby 02/15/2017 1 [employer] [id number] 1 Doris M Corby [id number] Doris Corby 02/20/2017 1 [employer] [id number] 1 Doris M Corby [id number] Doris Corby 02/26/2017 1 [employer] [id number] 1 Doris M Corby [id number] Doris Corby Notes Date Note Type Note Provider Name and Address Organization Details Recorded Time 02/02/2017 text/html This is a 67 yo woman who is here for rehab after an acute hospitalization for rapid afib and renal vasculitis causing glomerulonephritis. She presented to [facility] on 01/27 with weakness and worsening [...] is still severe tenderness. Pearl Hayes MD [address] [place] [address], [address], [place], [address], [employer] 02/02/2017 12:08:54 02/06/2017 text/html This is a 67 yo female admit with a PMH significant for DM, CKD, CHF, afib, renal vasculitis, and patent foramen ovale. Seen today to follow up on possible cellulitis treated with clindamycin. Mateo patel, [facility] [employer] [facility] 02/06/2017 15:00:55 02/15/2017 text/html Reevaluation of patient [...] Wound care consulted Mike Story MD [address] [facility], [address], [place], [address], [employer] 02/15/2017 13:35:35 02/20/2017 text/html This is a 67 yo female admit with a PMH significant for DM, CKD, CHF, afib, renal vasculitis, and patent foramen ovale. Seen today for acute visit. Mateo patel [facility] [employer] [facility] 02/20/2017 09:27:39 02/26/2017 text/html Patient is a 67 yo female preparing for discharge home. Initially admit post hospitalization for rapid afib and renal vasculitis causing glomerulonephritis. She presented to [facility] on 01/27 with weakness and worsening [...] with results to PCP Mike Story MD [address] [facility], [address], [place], [address], [employer] 02/26/2017 10:24:53 OBGyn Episode No OBEpisode recorded.
== END 2024-06-26 08:57 | disposition home or self-care (01) ==
LOC: HO.HOSX 08:56
PROVIDERS: Visit Provider Physician Assistant
DX: Z13.89 Encounter for screening for other disorder (principal)

== ENCOUNTER 2024-06-27 08:32 | Outpatient (REF) | payer MEDICARE, OTHER, SELFPAY ==
--- NOTE | ~2024-06-27 | XR_ITS ---
CLINICAL HISTORY: S32.599A - Other specified fracture of unspecified pubis, initial encoun... AP pelvis Comparison: None Findings: There are healing fractures with ongoing callus formation involving superior and inferior pubic ramus on the left. The sacroiliac joints are unremarkable. Sacral neural foramina are normal. There is moderate degenerative narrowing of the L5-S1 disc space with disc margin osteophytes. Bilateral sacroiliac joints are unremarkable. No significant arthritic change. No radiopaque foreign body. Impression: There is ongoing callus formation with healing of superior and inferior pubic rami on the left This document has been electronically signed by: Nathaniel Cortez MD on 06/30/2024 21:43:29
== END 2024-06-27 08:33 | disposition home or self-care (01) ==
LOC: HO.HOSX 08:32
PROVIDERS: Visit Provider Physician Assistant
DX: S32.592A Other specified fracture of left pubis, initial encounter for closed fracture (principal)
CPT/HCPCS: 72170; 99212

== ENCOUNTER 2024-06-27 11:22 | Outpatient (AMB) | payer MEDICARE, OTHER, SELFPAY ==
--- NOTE | 2024-06-27 11:24 | MHC.OFFVIS ---
Intake Visit Reasons: OV - left pelvic fx, DOI 04/04/24 Intake Note: Doris is a 74 year old female who presents today for a follow up of her left pelvic fx, DOI 04/04/24. Patient reports having little to no pain today. She mentions that she is feeling better. Allergies doxycycline Allergy (Verified 06/27/24 11:31) Rash HPI HPI OV - left pelvic fx, DOI 04/04/24: Details: Doris is a 74 year old female who presents today for a follow up of her left pelvic fx, DOI 04/04/24. Patient reports having little to no pain today. She mentions that she is feeling better. She continues to use the walker to assist with ambulation. [facility] Medical History Anemia PAF (paroxysmal atrial fibrillation) Port-A-Cath in place Osteomyelitis of great toe of right foot Pancreatic cancer Type 2 diabetes mellitus Pancreatic mass CHF (congestive heart failure) CKD (chronic kidney disease) Afib Surgical History Hx of surgical procedure (~12/21/23) H/O foot surgery H/O dilation and curettage H/O eye surgery [place] teeth removed History of cholecystectomy Family History Father Prostate cancer Sister Breast cancer Social History Household Members: Family Household Members Other:: lives on 1st floor. Son lives on 2nd floor Housing: House Housing Other:: two family house Do you presently have visiting nurse or other home services: Yes ([facility] visiting nurse for woundcare on foot) Alcohol intake: former Patient Tobacco Use Status: Never used Tobacco e-Cigarette/Vaping Use: Never Used Second Hand Smoke Exposure: No Advance Directives Date on File: 10/01/23 service: No Current occupational status: retired Review of Systems Const All systems reviewed & are unremarkable except as noted in HPI and below Physical Exam Const General: cooperative, healthy appearing and no acute distress Resp Effort & Inspection: normal respiratory effort and able to speak in complete sentences Cardio Peripheral pulses: Peripheral pulses 2+ throughout Skin Lesions: no lesions Rashes: no rashes Extrem Other: Left hip: Able to perform SLR is no pain. Able to dorsi and plantar flex. Denies numbness and tingling sensation. No pain with internal and external rotaion. NVI. Assessment & Plan Assessment & Plan (1) Closed fracture of inferior pubic ramus: Code(s): S32.599A - Other specified fracture of unspecified pubis, initial encounter for closed fracture Category: Medical Plan Doris is a 74 year old female who presents today for a follow up of her left pelvic fx, DOI 04/04/24. Patient reports having little to no pain today. She mentions that she is feeling better. She continues to use the walker to assist with ambulation. Patient reports that she was working with physical therapy and occupational therapy however she was doing very well and therefore had been discharge. She should continue to use the walker for ambulation assistance.-encourage her to continue with a home exercise program to focus on strengthening glute core and quads. Patient will follow up p.r.n., sooner if needed. X-rays obtained in the office today of the pelvis were reviewed by me and reveal routine healing of left superior and inferior acetabular fracture. Coding Level of Care Code Est Pt Level 3 (04942) Diagnoses Closed fracture of inferior pubic ramus S32.599A
== END 2024-06-27 11:37 | disposition home or self-care (01) ==
PROVIDERS: PCP Internal Medicine; Visit Provider Physician Assistant
DX: S32.599A Other specified fracture of unspecified pubis, initial encounter for closed fracture (principal)
CPT/HCPCS: 99213